=== PATIENT | female | born 1950 | race Caucasian/White ===

== ENCOUNTER 2019-03-27 21:33 | Emergency (ER) | payer OTHER, SELFPAY ==
[2019-03-27 21:33] VITALS: BP 140/85; PULSE 77; RESP 15; TEMP 36.6; O2SAT 99; BMI 44.1
--- NOTE | 2019-03-27 22:00 | ED.VISSUMM ---
- ER Visit Summary Date of Service: 03/27/19 Chief Complaint: Pulled a muscle in my back History of Present Illness: The patient is a [address] Ceballos. She reports that approximately o'clock this evening she was chasing her cat and twisted awkwardly pulling a muscle in her back. She reports that she has a sharp back pain Zeta 10 severity. Is worsened by movement. Has not taken anything for this. Denies any other trauma. No fall or MVA. She denies any chest pain. She does report the pain seems to take her breath away. Physical Examination: Vitals: Stable. Afebrile. General: Well-nourished and well-developed. Head: Normocephalic atraumatic. Neck: Supple, no lymphadenopathy. No JVD. Nontender. Cardiovascular: Regular rate and rhythm. No murmurs. Respiratory: No respiratory distress. Clear to auscultation bilaterally. Abdominal: Soft, nontender, nondistended, normal bowel sounds. No guarding, rebound, or peritoneal signs. Back: No vertebral tenderness. She does have moderate tenderness palpation to the paraspinous posterior just inferior to the scapula and medial to the left scapula. Extremities: Nontender, no edema. Skin: Normal color, no rash. Neurologic: Alert and oriented ?3. Cranial nerves II through XII are intact. Normal strength and sensation. Psych: Normal affect. Emergency Department Course and Treatment: An OARRS report was obtained which was negative. She was given a dose of morphine IM. Treatment Plan: Patient will be discharged prescription for Percocet. Instructed to follow-up with primary care physician in 3 to 5 days if not improving. Return to the emergency department for any worsening symptoms. Disposition: To home in improved and stable condition. Impression: 1. Left upper back strain. This note was generated with [employer] dictation software. It may contain incorrect words, spelling, and punctuation that were not noted in review of the chart prior to signing ED Disposition - Plan for ED Patient: Disposition: Home or Assisted Living Instructions: Back Sprain/Strain Prescriptions: Hydrocodone Bitart/Apap 5-325 [[place] 5MG-325MG] 1 tab PO Q6H PRN PRN 3 Days #12 tab PRN Reason: Pain Prescription Printed Referrals: Ceballos,Scar, MD [Primary Care Provider] - 3-5 Days if not improving
[2019-03-27] MEDS: morphine 8 MG/ML Syringe IM (22:09)
[2019-03-27 22:44] VITALS: RESP 18; O2SAT 96
== END 2019-03-27 23:03 | disposition home or self-care (01) ==
PROVIDERS: Emergency Provider Emergency Medicine; Family Provider Internal Medicine; PCP Internal Medicine
DX: S29.012A Strain of muscle and tendon of back wall of thorax, initial encounter (principal); X50.1XXA Overexertion from prolonged static or awkward postures, initial encounter; Y93.9 Activity, unspecified; Y92.9 Unspecified place or not applicable; Y99.9 Unspecified external cause status; I12.9 Hypertensive chronic kidney disease with stage 1 through stage 4 chronic kidney disease, or unspecified chronic kidney disease; E11.22 Type 2 diabetes mellitus with diabetic chronic kidney disease; N18.9 Chronic kidney disease, unspecified; J45.909 Unspecified asthma, uncomplicated; Z79.82 Long term (current) use of aspirin; Z79.4 Long term (current) use of insulin; Z79.899 Other long term (current) drug therapy
CPT/HCPCS: 96372; 99282

== ENCOUNTER → 2019-11-12 11:18 | Outpatient (CLI) | payer MEDICARE, SELFPAY ==
--- NOTE | 2019-11-12 11:23 | US_ITS ---
STUDY: RENAL ULTRASOUND - COMPLETE REASON FOR EXAM: Female, 69 years old. CKD 2 TECHNIQUE: Ultrasound evaluation of the kidneys was performed with real-time and static fan-scale imaging. COMPARISON: None. FINDINGS: RIGHT KIDNEY: Normal location of the right kidney, which is normal in size. The right kidney measures 11.2 x 5.8 x 4.7 cm. There is a normal cortex of the right kidney. The renal parenchyma measures 1.6 cm. There is no right renal mass or cyst. There are no right renal calculi. There is no right hydronephrosis. DISTAL RIGHT URETER: There is non-visualization of the distal right ureter. There is no demonstrated right ureterovesical junction calculus. There is a visualized right ureteral jet. LEFT KIDNEY: Normal location of the left kidney, which is normal in size. The left kidney measures 10.2 x 4.9 x 4.8 cm. There is a normal cortex of the left kidney. The renal parenchyma measures 1.2 cm. There is no left renal mass or cyst. There are no left renal calculi. There is no left hydronephrosis. DISTAL LEFT URETER: There is non-visualization of the distal left ureter. There is no demonstrated left ureterovesical junction calculus. There is a visualized left ureteral jet. BLADDER: The urinary bladder has a volume of 38.9 ml. US/Kidney and Bladder IMPRESSION: Unremarkable ultrasound of the kidneys and visualized urinary bladder. Electronically Signed: Sharon Zapata MD at 2:45 EDT , Service support ,
== END ==
PROVIDERS: PCP Internal Medicine; Referring Provider Internal Medicine Nephrology; Visit Provider Internal Medicine Nephrology
DX: N18.2 Chronic kidney disease, stage 2 (mild) (principal)
CPT/HCPCS: 76770

== ENCOUNTER 2020-02-19 10:01 | Emergency (ER) | payer MEDICARE, SELFPAY ==
[2020-02-19 10:03] VITALS: BP 140/58; PULSE 76; RESP 16; TEMP 36.3; O2SAT 96; BMI 43.4
--- NOTE | 2020-02-19 10:27 | RAD_ITS ---
STUDY: X-RAY - RIGHT FOOT CLINICAL: Female, 69 years old. right foot pain, NKI TECHNIQUE: 3 view(s) of the foot. COMPARISON: None. FINDINGS: There is a plantar calcaneal spur. Mild arthritic change of the midfoot. Normal metatarsi. Normal metatarsophalangeal joint of the great toe. Normal tibial and fibular sesamoid bones. Normal interphalangeal joint of the great toe. Normal phalanges of the great toe. Normal second through fifth metatarsophalangeal joints. Degenerative changes of the interphalangeal joints and phalanges of the lesser toes. The soft tissue structures are unremarkable. There is no demonstrated fracture. RAD/Foot min 3 Views IMPRESSION: No fracture. Degenerative change. Electronically Signed: Rodrigue Salgado MD at 11:10 EDT , Service support ,
--- NOTE | 2020-02-19 10:29 | ED.DCSUM_ITS ---
- ER Visit Summary Date of Service: 02/19/20 Chief Complaint: [Foot pain] History of Present Illness: The patient is a 69 F [presents to the emergency department complaint of pain in her foot that started yesterday afternoon. Patient denies any injury. Patient has pain mostly with standing and walking on it. No history of gout. No prior similar episodes. Patient has history of type 2 diabetes as well as hypertension and stage III kidney failure.] Physical Examination: [HEENT-PERRLA, EOMI. Cranial nerves II through XII grossly intact. TMs clear. Mucous membranes moist. No adenopathy. Cardiovascular-regular rate and rhythm without murmur or ectopy Lungs-clear to auscultation, chest wall stable without crepitus or subcu emphysema Abdomen-normoactive bowel sounds, soft, nontender, no rebound or rigidity, no peritoneal signs. Extremities-intact ?4, normal range of motion, normal pulses. Right foot- patient has tenderness to palpation over the ankle joint mortise as well as the proximal lateral foot. No erythema or warmth noted. Neurovascular intact distally. No external evidence of trauma or deformity noted.] Test Results: [X-rays of the right foot obtained showed no evidence of fractures or dislocations and only some degenerative changes.] Emergency Department Course and Treatment: [She will be given an Herminio wrap and crutches. Suspect possibility of gout as the etiology of her symptoms therefore I will start her on prednisone. Patient was advised that with her being diabetic she will need to carefully monitor her blood sugars as steroids can increase them. Does have insulin at home to treat this.] Treatment Plan: [Patient will be given prednisone and [place] for pain. Patient advised to follow-up with her primary care physician in 5 to 7 days.] Disposition: [Discharged home in stable condition] Impression: [Right foot and ankle pain-suspect gout] This note was generated with [employer] dictation software. It may contain incorrect words, spelling, and punctuation that were not noted in review of the chart prior to signing ED Disposition - Plan for ED Patient: Referrals: Scar Ceballos MD [Primary Care Provider] -
--- NOTE | 2020-02-19 11:33 | DCINST.ED_ITS ---
ED Disposition - Plan for ED Patient: Instructions: ED ARTHRITIS Gout Prescriptions: Prednisone [Deltasone] 20 mg PO BID #10 tab Transmission Status: Pending to [facility]/pharmacy #[id number] Hydrocodone Bitart/Apap 5-325 [[place] 5MG-325MG] 1 tablet PO Q4H PRN PRN 2 Days #10 tablet PRN Reason: Pain Transmission Status: Received by [facility]/pharmacy #[id number] Referrals: Scar Ceballos MD [Primary Care Provider] - 5-7 Days
--- NOTE | 2020-02-19 11:33 | ED.DEP ---
ED Disposition - Plan for ED Patient: Instructions: ED ARTHRITIS Gout Prescriptions: Prednisone [Deltasone] 20 mg PO BID #10 tab Transmission Status: Pending to [facility]/pharmacy #[id number] Hydrocodone Bitart/Apap 5-325 [[place] 5MG-325MG] 1 tablet PO Q4H PRN PRN 2 Days #10 tablet PRN Reason: Pain Transmission Status: Received by [facility]/pharmacy #[id number] Referrals: Scar Ceballos MD [Primary Care Provider] - 5-7 Days
[2020-02-19] MEDS: predniSONE 20 MG Tablet PO (11:42)
== END 2020-02-19 11:55 | disposition home or self-care (01) ==
PROVIDERS: Emergency Provider Emergency Medicine; PCP Internal Medicine
DX: M79.671 Pain in right foot (principal); M25.571 Pain in right ankle and joints of right foot; E11.22 Type 2 diabetes mellitus with diabetic chronic kidney disease; I12.9 Hypertensive chronic kidney disease with stage 1 through stage 4 chronic kidney disease, or unspecified chronic kidney disease; N18.3 Chronic kidney disease, stage 3 (moderate); Z79.4 Long term (current) use of insulin; Z79.899 Other long term (current) drug therapy
CPT/HCPCS: 73630; 99283

== ENCOUNTER → 2020-04-14 14:11 | Outpatient (CLI) | payer MEDICARE, SELFPAY ==
[2020-04-14 15:18] LABS: Hematocrit 36.3 % (37-47); Hemoglobin 11.5 g/dL (12.0-15.0); Mean Corp Hgb Conc 31.7 g/dL (32-36); Mean Corpuscular Hgb 28.7 pg (27.0-32.0); Mean Corpuscular Volume 90.5 fL (81-99); Mean Platelet Vol. 9.7 fl (6.2-12.0); Platelet Count 370 K/mm3 (150-450); RBC Distribution Width CV 13.9 % (11.6-14.6); RBC Distribution Width SD 45.6 fl (35.1-43.9); Red Blood Count 4.01 M/mm3 (4.2-5.4); White Blood Count 9.5 K/mm3 (4.4-11.0)
[2020-04-14 15:43] LABS: Albumin, Serum 3.6 g/dL (3.2-5.0); BUN 25 mg/dL (7-18); BUN/Creat Ratio 21.7 RATIO (10-20); Calcium,Total 9.6 mg/dL (8.5-10.1); Chloride 105 mmol/L (98-107); Creatinine, Serum 1.15 mg/dL (0.55-1.02); EST Glomerular Filtration Rate 50 mL/min (>60); Est Glom Filt Rate - Afr Amer 60 mL/min (>60); Glucose 192 mg/dL (74-106); Phosphorus 4.3 mg/dL (2.5-4.9); Potassium 4.6 mmol/L (3.5-5.1); Sodium Level 140 mmol/L (136-145)
[2020-04-14 15:48] LABS: Vitamin D,25 Hydroxy 23.9 ng/mL
[2020-04-15 10:19] LABS: PTHIN 29.6 pg/mL (18.4-80.1)
== END ==
PROVIDERS: PCP Internal Medicine; Referring Provider Internal Medicine Nephrology; Visit Provider Internal Medicine Nephrology
DX: N18.2 Chronic kidney disease, stage 2 (mild) (principal); E55.9 Vitamin D deficiency, unspecified
CPT/HCPCS: 36415; 80069; 82306; 83970; 85027

== ENCOUNTER → 2020-07-17 10:16 | Outpatient (CLI) | payer MEDICARE, SELFPAY ==
[2020-07-17 11:05] LABS: Hematocrit 35.7 % (37-47); Mean Corp Hgb Conc 30.8 g/dL (32-36); Mean Corpuscular Volume 90.8 fL (81-99); Mean Platelet Vol. 9.7 fl (6.2-12.0); Platelet Count 344 K/mm3 (150-450); RBC Distribution Width CV 13.3 % (11.6-14.6); RBC Distribution Width SD 43.9 fl (35.1-43.9); Red Blood Count 3.93 M/mm3 (4.2-5.4); White Blood Count 7.5 K/mm3 (4.4-11.0)
[2020-07-17 11:30] LABS: Albumin, Serum 3.6 g/dL (3.2-5.0); BUN 25 mg/dL (7-18); BUN/Creat Ratio 22.1 RATIO (10-20); Calcium,Total 9.2 mg/dL (8.5-10.1); Chloride 104 mmol/L (98-107); Creatinine, Serum 1.13 mg/dL (0.55-1.02); EST Glomerular Filtration Rate 51 mL/min (>60); Est Glom Filt Rate - Afr Amer 61 mL/min (>60); Ferritin 37 ng/mL (8-252); Glucose 153 mg/dL (74-106); Iron 62 ug/dL (50-170); Iron Binding Capacity,Total 411 ug/dL (250-450); Phosphorus 3.8 mg/dL (2.5-4.9); Potassium 4.3 mmol/L (3.5-5.1); Sodium Level 139 mmol/L (136-145)
== END ==
PROVIDERS: PCP Internal Medicine; Visit Provider Internal Medicine Nephrology
DX: N18.2 Chronic kidney disease, stage 2 (mild) (principal); D50.9 Iron deficiency anemia, unspecified
CPT/HCPCS: 36415; 80069; 82728; 83540; 83550; 85027

== ENCOUNTER → 2021-04-05 09:31 | Outpatient (CLI) | payer MEDICARE, SELFPAY ==
[2021-04-05 09:52] LABS: Hematocrit 35.3 % (37-47); Mean Corp Hgb Conc 31.2 g/dL (32-36); Mean Corpuscular Hgb 27.9 pg (27.0-32.0); Mean Corpuscular Volume 89.6 fL (81-99); Mean Platelet Vol. 9.5 fl (6.2-12.0); Platelet Count 351 K/mm3 (150-450); RBC Distribution Width CV 13.8 % (11.6-14.6); RBC Distribution Width SD 45.1 fl (35.1-43.9); Red Blood Count 3.94 M/mm3 (4.2-5.4); White Blood Count 6.7 K/mm3 (4.4-11.0)
[2021-04-05 10:08] LABS: Protein, Urine (Random) 12.7 mg/dL (<11.9); Protein:Creat Ratio 69 mg/g CRE (0-200)
[2021-04-05 10:18] LABS: Albumin, Serum 3.5 g/dL (3.2-5.0); BUN 24 mg/dL (7-18); BUN/Creat Ratio 22.9 RATIO (10-20); Calcium,Total 9.1 mg/dL (8.5-10.1); Chloride 104 mmol/L (98-107); Creatinine, Serum 1.05 mg/dL (0.55-1.02); EST Glomerular Filtration Rate 55 mL/min (>60); Est Glom Filt Rate - Afr Amer 67 mL/min (>60); Ferritin 28 ng/mL (8-252); Glucose 124 mg/dL (74-106); Iron 55 ug/dL (50-170); Iron Binding Capacity,Total 435 ug/dL (250-450); Phosphorus 3.4 mg/dL (2.5-4.9); Potassium 4.2 mmol/L (3.5-5.1); Sodium Level 139 mmol/L (136-145)
== END ==
PROVIDERS: PCP Internal Medicine; Referring Provider Internal Medicine Nephrology; Visit Provider Internal Medicine Nephrology
DX: E11.22 Type 2 diabetes mellitus with diabetic chronic kidney disease (principal); N18.2 Chronic kidney disease, stage 2 (mild); D50.9 Iron deficiency anemia, unspecified
CPT/HCPCS: 36415; 80069; 82570; 82728; 83540; 83550; 84156; 85027

== ENCOUNTER 2022-03-12 09:38 | Emergency (ER) | payer MEDICARE, SELFPAY ==
[2022-03-12 09:39] VITALS: BP 160/122; PULSE 59; RESP 18; TEMP 35.9; O2SAT 97; BMI 42.5
--- NOTE | 2022-03-12 09:52 | CT_ITS ---
STUDY: CT ABDOMEN AND PELVIS WITH CONTRAST REASON FOR EXAM: Female, 71 years old. Upper abdominal pain with nausea and vomiting. RADIATION DOSAGE (If Supplied By Facility): CTDIvol = ( 16.67 ) mGy, DLP = ( 1132.08 ) mGycm TECHNIQUE: Transaxial images were obtained from the dome of the diaphragm to the symphysis pubis without oral contrast. IV 100mL Isovue-300 was administered. Sagittal and coronal images were reconstructed. Individualized dose optimization techniques were used for this CT. COMPARISON: None. FINDINGS: Minimal increased linear markings at the lung bases suggestive of mild atelectasis. The visualized portions of the heart are within normal limits. There is decreased attenuation of the liver consistent with steatosis. There are multiple small gallstones. Normal spleen. Normal pancreas. Normal bilateral adrenal glands. There is a 8.6 mm cyst in the lower pole of the right kidney. Normal left kidney. There is a small hiatal hernia. Normal small intestine. Normal colon. There are surgical clips in the region of the appendix consistent with a prior appendectomy. There is scattered atherosclerotic calcification of the abdominal aorta, without a demonstrated aneurysm. Normal inferior vena cava. Normal retroperitoneum. The urinary bladder is empty. There is absence of the uterus consistent with a prior hysterectomy. There is a small umbilical hernia containing fat. There are diffuse degenerative changes of the visualized lumbar spine. CT/Abdomen/Pelvis W IV Cont ONLY IMPRESSION: Multiple small gallstones. Fatty attrition of the liver. Electronically Signed: Fran Rice MD at 10:56 EDT ,
--- NOTE | 2022-03-12 09:54 | EDS_ITS ---
HPI HPI - GI History of Present Illness Chief Complaint: Nausea/Vomiting Narrative Narrative: 71-year-old female past medical history of diabetes, takes Lantus 26 units in the evening and metformin during the day, presents with nausea and vomiting that she has had since 8 PM last evening, approximately 14 hours ago. She states that she ate dinner around 5 PM then at 3 PM developed epigastric to right upper quadrant pain that radiates down toward. She then starts relating history that she had projectile vomiting at midnight and vomited multiple times. She denies any blood in her emesis, stating that it was not bilious but more food. Past surgical history includes hysterectomy and appendectomy. She denies any fevers or chills. States when she moves her abdomen hurts more. It is mainly in the upper part of her abdomen and epigastric area and radiating downward, but states it hurts all over. No chest pain or shortness of breath. PFSH PFSH Home Medications albuterol sulfate 90 mcg/actuation aerosol inhaler 2 puff inhalation Q6H PRN PRN Sob &/Or Wheezing 03/27/19 [History Last Taken Unknown] diltiazem HCl 360 mg tablet,extended release 24 hr 360 mg PO DAILY 03/27/19 [History Last Taken Unknown] fenofibrate nanocrystallized 145 mg tablet 145 mg PO DAILY 03/27/19 [History Last Taken Unknown] glimepiride 4 mg tablet 4 mg PO DAILY 03/27/19 [History Last Taken Unknown] insulin glargine 100 unit/mL (3 mL) subcutaneous pen 30 unit SQ QHS 03/27/19 [History Last Taken Unknown] levothyroxine 50 mcg tablet 50 mcg PO DAILY 03/27/19 [History Last Taken U nknown] losartan 50 mg tablet 50 mg PO DAILY 03/27/19 [History Last Taken Unknown] metformin 500 mg tablet 1,000 mg PO BID 03/27/19 [History Last Taken Unknown] pantoprazole 20 mg tablet,delayed release 20 mg PO DAILY 03/27/19 [History Last Taken Unknown] atorvastatin 10 mg tablet 10 mg PO QHS 02/19/20 [History Last Taken Unknown] fluticasone propionate 220 mcg/actuation HFA aerosol inhaler 1 puff inhalation BID 02/19/20 [History Last Taken Unknown] prednisone 20 mg tablet 20 mg PO BID #10 tabs 02/19/20 [Rx Last Taken Unknown] dicyclomine 20 mg tablet 20 mg PO BID #20 tabs 03/12/22 [Rx Last Taken Unknown] ondansetron 4 mg disintegrating tablet 4 mg PO Q6H PRN nausea and vomiting #14 tabs 03/12/22 [Rx Last Taken Unknown] Allergy/AdvReac Type Severity Reaction Status Date / Time liraglutide [From Victoza] Allergy PT UNSURE Verified 03/12/22 09:39 OF REACTION Social History Smoking Status: Never smoker ROS ROS ED ROS Narrative Constitutional: No fever, no chills. HEENT: No sore throat. No neck pain. No loss of vision. No rhinorrhea. Cardiovascular: No chest pain. No palpitations. No pedal edema. Respiratory: No cough, no shortness of breath. Abdominal: Epigastric to bilateral upper quadrant abdominal pain. Positive nausea. Multiple episodes of nonbloody vomiting. Described as projectile. Genitourinary: No dysuria. No hematuria. Musculoskeletal: No myalgias. No arthralgias. Neurologic: No headaches. No dizziness. No lightheadedness. Skin: No rash. No change in color. Psychiatric: No depression. No anxiety. EXAM Physical Exam Narrative Exam Narrative: Afebrile. Vital signs noted. HEENT: Normocephalic. Atraumatic. PERRL, EOMI. Neck soft and supple. No point tenderness or step off. Cardiovascular: Regular rate and rhythm. No murmurs, rubs, or gallops appreciated. Respiratory: No tachypnea. Lungs clear to auscultation bilaterally. Gastrointestinal: Abdomen soft, obese, with tenderness in the epigastrium to right upper quadrant, with normoactive bowel sounds. No rebound or guarding. Negative Vasquez sign. Neurological: Awake. Alert. Nonfocal, nonlateralizing. Skin: No rash. Normal color. No pallor. Musculoskeletal: No pedal edema. Full range of motion extremities. Const Vital Signs: 03/12/22 09:39 Temperature 96.7 F L Temperature Source Temporal Pulse Rate 59 L Respiratory Rate 18 Blood Pressure 160/122 H Blood Pressure Mean 134 Pulse Ox 97 Oxygen Delivery Method Room Air MDM MDM MDM Narrative Medical decision making narrative: Comprehensive work-up was pursued. She has bolus normal saline. I do feel CT imaging with IV contrast is indicated to look for obstruction. Should she require right upper quadrant ultrasound imaging, that will be performed after obtaining CBC, CMP, and lipase. RN ordered EKG shows normal sinus bradycardia at 57 bpm interpreted by myself. No evidence of STEMI. CBC shows normal white count of 10.6 with hemoglobin 11.4, hematocrit 35.0. Normal platelet count of 357. CMP shows BUN elevated at 23 with a normal creatinine 1.02. Electrolytes are otherwise unremarkable. AST and ALT are normal. High-sensitivity troponin normal at 22. Alk phos also normal at 51. Urinalysis shows no evidence of infection, negative nitrites with 15 ketones. WBC 0-5. I do not feel antibiotics are indicated. Her lipase is normal. CT of the abdomen pelvis shows multiple gallstones. She started having increased pain and was administered morphine 4 mg intravenously. I did obtain a gallbladder ultrasound which shows common bile duct of 4.2, with multiple gallstones but no pericholecystic fluid. At this point in time, I do feel she can be discharged safely home with follow-up. She was given a prescription for Bentyl and for Zofran and told to start a clear liquid diet and advance as tolerated. She will follow-up with her primary care physician. She may require outpatient HIDA scanning and referral to a general surgeon for elective cholecystectomy. Return instructions to the emergency department were reviewed. Disposition is discharged home in stable condition. Lab Data Attestation: I reviewed the patient's lab results. Labs: Laboratory Results - last 24 hr 03/12/22 03/12/22 03/12/22 09:57 09:57 10:32 WBC 10.6 RBC 4.07 L Hgb 11.4 L Hct 35.0 L MCV 86.0 MCH 28.0 MCHC 32.6 RDW Std Deviation 41.3 RDW Coeff of Tito 13.2 Plt Count 357 MPV 9.3 Immature Gran % (Auto) 0.600 Neut % (Auto) 80.5 H Lymph % (Auto) 16.9 L Charles % (Auto) 1.6 Eos % (Auto) 0.1 Baso % (Auto) 0.3 Absolute Neuts (auto) 8.6 H Absolute Lymphs (auto) 1.80 Nucleated RBC % 0 Sodium 137 Potassium 3.9 Chloride 102 Carbon Dioxide 26.0 Anion Gap 9 BUN 23 H Creatinine 1.02 Estim Creat Clear Calc 38.73 Est GFR (MDRD) Af Amer 69 Est GFR (MDRD) Non-Af 57 L BUN/Creatinine Ratio 22.5 H Glucose 215 H Calcium 9.4 Total Bilirubin 0.20 AST 18 ALT 34 Alkaline Phosphatase 51 Troponin I High Sens 22 Total Protein 7.5 Albumin 3.7 Globulin 3.8 Albumin/Globulin Ratio 1.0 Lipase 108 Urine Color Yellow Urine Clarity Sl. Cloudy Urine pH 6.5 Ur Specific [place] 1.015 Urine Protein 30 H Urine Glucose (UA) 100 H Urine Ketones 15 H Urine Occult Blood 50 H Urine Nitrite Negative Urine Bilirubin Negative Urine Urobilinogen Normal Ur Leukocyte Esterase 25 H Urine RBC 0-5 SEEN Urine WBC 0-5 SEEN Ur Squamous Epith Cells 0 SEEN Urine Bacteria 1+ Urine Mucus 1+ Radiography Diagnostic Testing: Clinical Impression(s) from Imaging Studies Abdomen/Pelvis CT 03/12/22 09:52 IMPRESSION: Multiple small gallstones. Fatty attrition of the liver. Electronically Signed: Fran Rice MD at 10:56 EDT , Gallbladder Ultrasound 03/12/22 11:28 IMPRESSION: Hepatomegaly and diffuse fatty infiltration of the liver. Multiple gallstones. Electronically Signed: Fran Rice MD at 12:47 EDT , Discharge Plan Triage Chief Complaint: Nausea/Vomiting ED Provider: Yassine Troy Dx/Rx/DC Orders Clinical Impression: Abdominal pain, Nausea & vomiting, Gallstones, Biliary colic Instructions: Nausea Vomit Control, ED Abdominal Pain Unkn Cause Fem, ED Gallstones with Biliary Colic, ED Vomiting (Adult) Prescriptions: New dicyclomine 20 mg tablet 20 mg PO BID Qty: 20 0RF ondansetron 4 mg tablet,disintegrating 4 mg PO Q6H PRN (Reason: nausea and vomiting) Qty: 14 0RF No Action losartan 50 MG tablet 50 mg PO DAILY metformin 500 MG tablet 1,000 mg PO BID pantoprazole 20 MG tablet,delayed release (DR/EC) 20 mg PO DAILY levothyroxine 50 MCG tablet 50 mcg PO DAILY glimepiride 4 MG tablet 4 mg PO DAILY albuterol sulfate 1 INHALER inhaler 2 puff inhalation Q6H PRN PRN (Reason: Sob &/Or Wheezing) diltiazem HCl 360 MG tablet extended release 24 hr 360 mg PO DAILY fenofibrate nanocrystallized 145 MG tablet 145 mg PO DAILY insulin glargine 100 UNIT/ML insulin pen 30 unit SQ QHS atorvastatin 10 MG tablet 10 mg PO QHS fluticasone propionate 220 mcg/actuation HFA aerosol inhaler 1 puff inhalation BID prednisone 20 MG tablet 20 mg PO BID Qty: 10 0RF Rx Instructions: With food Primary Care Provider: Scar Ceballos Referrals: Scar Ceballos MD [Primary Care Provider] - 3-5 Days Disposition Disposition: Home, Self Care
[2022-03-12 10:06] LABS: Absolute Neutrophil Count 8.6 X10^3/uL (2.0-7.7); Basophil# 0.03 X10^3/uL; Basophil% 0.3 % (0-1); Eosinophil# 0.01 X10^3/uL; Eosinophils% 0.1 % (0-5); Hemoglobin 11.4 g/dL (12.0-15.0); Lymphocyte % 16.9 % (19-41); Mean Corp Hgb Conc 32.6 g/dL (32-36); Mean Platelet Vol. 9.3 fl (6.2-12.0); Monocyte# 0.17 X10^3/uL; Monocyte% 1.6 % (0-10); NRBC Flagged by Analyzer 0 % (0-5); Neutrophil # 8.55 X10^3/uL (2.7-7.7); Neutrophil % 80.5 % (47-70); Platelet Count 357 K/mm3 (150-450); RBC Distribution Width CV 13.2 % (11.6-14.6); RBC Distribution Width SD 41.3 fl (35.1-43.9); Red Blood Count 4.07 M/mm3 (4.2-5.4); White Blood Count 10.6 K/mm3 (4.4-11.0)
[2022-03-12] MEDS: 0.9% Normal Saline 1,000 ML 1000 ML IV (10:06)
--- NOTE | 2022-03-12 10:20 | EKG12_ITS ---
Test Reason : chest pain Blood Pressure : / mmHG Vent. Rate : 057 BPM Atrial Rate : 057 BPM P-R Int : 152 ms QRS Dur : 092 ms QT Int : 442 ms P-R-T Axes : 056 064 045 degrees QTc Int : 430 ms Sinus bradycardia Otherwise normal ECG Confirmed by DEVEN CARLOS, ROCKY ([id number]), publications editor BRET MADDEN ([id number]) on 03/13/2022 11:07:57 AM Referred By: Isabel Confirmed By:ROCKY CARVALHO MD
[2022-03-12 10:27] LABS: AST(SGOT) 18 U/L (15-37); Alanine Aminotransfer ALT/SGPT 34 U/L (13-56); Albumin, Serum 3.7 g/dL (3.2-5.0); Alkaline Phosphatase 51 U/L (45-117); Anion Gap 9 (5-15); BUN 23 mg/dL (7-18); BUN/Creat Ratio 22.5 RATIO (10-20); Calcium,Total 9.4 mg/dL (8.5-10.1); Chloride 102 mmol/L (98-107); Creatinine, Serum 1.02 mg/dL (0.55-1.02); EST Glomerular Filtration Rate 57 mL/min (>60); Est Glom Filt Rate - Afr Amer 69 mL/min (>60); Estimated Creatinine Clearance 38.73 ml/min; Globulin 3.8 g/dL (2.2-4.2); Glucose 215 mg/dL (74-106); Lipase 108 U/L (73-393); Potassium 3.9 mmol/L (3.5-5.1); Protein, Total 7.5 g/dL (6.4-8.2); Sodium Level 137 mmol/L (136-145); Troponin-I HS 22 pg/mL (3.0-54.0)
[2022-03-12 10:40] LABS: Squamous Epithelial Cells - UA 0 SEEN /hpf (5-10)
[2022-03-12 10:46] LABS: Color, Urine Yellow (Yellow); Glucose, Dipstick 100 mg/dl (Normal); Ketone-Dipstick 15 mg/dl (Negative); Leukocyte Esterase-Dipstick 25 /ul (Negative); Nitrite-Dipstick Negative (Negative); Occult Blood-Urine 50 /ul (Negative); Protein-Dipstick 30 mg/dl (Negative); Specific Gravity, Urine 1.015 (1.002-1.030); Urine Bilirubin Dipstick Negative (Negative); Urine Clarity Sl. Cloudy (Clear); Urine Urobilinogen Normal (Normal); Urine pH 6.5 (5.0 - 8.0)
[2022-03-12 10:53] LABS: Bacteria 1+ /hpf (None Seen); Mucous, Urine 1+ /hpf (<or=2+); Red Blood Cells-Urine 0-5 SEEN /hpf (0-5); White Blood Cells 0-5 SEEN /hpf (0-5)
--- NOTE | 2022-03-12 11:28 | US_ITS ---
STUDY: ABDOMINAL ULTRASOUND - RIGHT UPPER QUADRANT REASON FOR VISIT: Female, 71 years old nausea and vomiting -- epigastric pain -- f/u ct TECHNIQUE: Ultrasound evaluation of the right upper quadrant was performed with real-time and static espitia-scale imaging. TECHNICAL QUALITY: Adequate. COMPARISON: Comparison is made with prior CT scan done earlier today. FINDINGS: Liver: The liver is enlarged and measures 22.3 cm. There is increased echogenicity consistent with fatty infiltration. The bile ducts are within normal limits. There is hepatic color flow. The direction of portal flow is hepatopetal. There is no demonstrated mass lesion. Gallbladder: Normal distended gallbladder. The gallbladder wall measures 2.8 mm. There is a negative sonographic Vasquez''s sign. There is no pericholecystic fluid. There are multiple echogenic structures within the gallbladder, consistent with multiple gallstones. Common Bile Duct (C.B.D.): The common bile duct measures 4.2 mm. Pancreas: Normal size of the head, body and tail of the pancreas. There is normal echogenicity of the pancreas. There is no demonstrated pancreatic mass or cyst. Right Kidney: Normal size of the right kidney. The right kidney measures 10.6 cm x 5.6 cm x 4.4 cm. Normal renal cortex. The right cortex measures 1.1 cm. There is a 1.2 cm x 0.7 cm x 0.9 cm right renal cyst. There is no right hydronephrosis. US/Gallbladder IMPRESSION: Hepatomegaly and diffuse fatty infiltration of the liver. Multiple gallstones. Electronically Signed: Fran Rice MD at 12:47 EDT ,
[2022-03-12] MEDS: Morphine 4 MG/ML Syringe IV (11:35)
[2022-03-12 14:31] VITALS: BP 181/68; PULSE 61
== END 2022-03-12 14:32 | disposition home or self-care (01) ==
PROVIDERS: Emergency Provider Emergency Medicine; PCP Internal Medicine; Visit Provider Emergency Medicine
DX: K80.70 Calculus of gallbladder and bile duct without cholecystitis without obstruction (principal); E11.9 Type 2 diabetes mellitus without complications; Z79.4 Long term (current) use of insulin; R10.11 Right upper quadrant pain; R10.13 Epigastric pain; R11.2 Nausea with vomiting, unspecified; R00.1 Bradycardia, unspecified; Z79.899 Other long term (current) drug therapy; Z90.710 Acquired absence of both cervix and uterus; Z90.49 Acquired absence of other specified parts of digestive tract
CPT/HCPCS: 74177; 76705; 80053; 81001; 83690; 84484; 85025; 93005; 96361; 96374; 99282; J7030; Q9967; A4216

== ENCOUNTER → 2022-04-08 | Outpatient (CLI) | payer MEDICARE, SELFPAY ==
[2022-04-08 11:09] LABS: Hematocrit 35.2 % (37-47); Hemoglobin 11.7 g/dL (12.0-15.0); Mean Corp Hgb Conc 33.2 g/dL (32-36); Mean Corpuscular Hgb 29.5 pg (27.0-32.0); Mean Corpuscular Volume 88.7 fL (81-99); Mean Platelet Vol. 9.2 fl (6.2-12.0); Platelet Count 319 K/mm3 (150-450); RBC Distribution Width CV 13.8 % (11.6-14.6); RBC Distribution Width SD 44.8 fl (35.1-43.9); Red Blood Count 3.97 M/mm3 (4.2-5.4); White Blood Count 6.4 K/mm3 (4.4-11.0)
[2022-04-08 11:44] LABS: Albumin, Serum 3.6 g/dL (3.2-5.0); BUN 29 mg/dL (7-18); BUN/Creat Ratio 24.4 RATIO (10-20); Calcium,Total 9.3 mg/dL (8.5-10.1); Chloride 106 mmol/L (98-107); Creatinine, Serum 1.19 mg/dL (0.55-1.02); EST Glomerular Filtration Rate 48 mL/min (>60); Est Glom Filt Rate - Afr Amer 58 mL/min (>60); Ferritin 38 ng/mL (8-252); Glucose 125 mg/dL (74-106); Iron 59 ug/dL (50-170); Iron Binding Capacity,Total 417 ug/dL (250-450); PERCENT IRON SATURATION 14.1 % (15.0-55.0); Phosphorus 4.1 mg/dL (2.5-4.9); Potassium 4.5 mmol/L (3.5-5.1); Sodium Level 137 mmol/L (136-145)
[2022-04-08 13:48] LABS: Protein, Urine (Random) 11.7 mg/dL (<11.9); Protein:Creat Ratio 71 mg/g CRE (0-200)
== END | disposition home or self-care (01) ==
LOC: LAB 10:53
PROVIDERS: PCP Internal Medicine; Referring Provider Internal Medicine Nephrology; Visit Provider Internal Medicine Nephrology
DX: D50.9 Iron deficiency anemia, unspecified (principal); E11.22 Type 2 diabetes mellitus with diabetic chronic kidney disease; N18.2 Chronic kidney disease, stage 2 (mild)
CPT/HCPCS: 36415; 80069; 82570; 82728; 83540; 83550; 84156; 85027

== ENCOUNTER 2022-05-07 08:26 | Day surgery (SDC) | payer MEDICARE, SELFPAY ==
--- NOTE | 2022-05-02 10:59 | EKG12_ITS ---
Test Reason : PRE OP Blood Pressure : / mmHG Vent. Rate : 067 BPM Atrial Rate : 067 BPM P-R Int : 158 ms QRS Dur : 068 ms QT Int : 416 ms P-R-T Axes : 090 065 053 degrees QTc Int : 439 ms Normal sinus rhythm Normal ECG Confirmed by LOREN CARLOS, KODY ([id number]), editor trade journal BRET MADDEN ([id number]) on 05/03/2022 2:07:42 PM Referred By: Maggy Akers Confirmed By:OMAR PIMENTEL MD
[2022-05-02 12:51] LABS: International Normalized Ratio 0.9
[2022-05-02 12:52] LABS: Partial Thromboplast Time 36.5 Seconds (24.1-36.2)
[2022-05-02 13:01] LABS: Hemoglobin A1c 6.7 % (3.8-5.6)
[2022-05-07] VITALS (7 sets, daily range): BP systolic 128–168; BP diastolic 61–85; PULSE 59–78; RESP 16–19; TEMP 36.3–36.9; O2SAT 93–100; BMI 42.2
--- NOTE | 2022-05-07 | GALL_PTH ---
PATIENT: LENI ZAMBRANO LOC: [facility] [place] U#:[id number] AGE/SX: 72/F ROOM: RE05/07/[address]: Dr. Maggy Akers MD : 1950 BED: DIS: 05/07/2022 SPEC #: [id number] RECD: 05/07/22 13:08 STATUS: ANDRY ELLA #: [id number] LAYNE: 05/07/22 00:[address]: Maggy Akers DEPT: SURGICAL PATHOLOGY RECD BY: Ricardo Anaya ENTERED: 05/07/22 13:08 SP TYPE: KEVIN WELLER DR: Dr. Scar Ceballos MD Tissues: Gallbladder, NOS Procedures: Surgery Specimen Level III HEADER OPERATION: Laparoscopic cholecystectomy PRE-OP DIAGNOSIS: Epigastric abdominal pain, cholelithiasis TISSUE SUBMITTED: Gallbladder and contents MICROSCOPIC DIAGNOSIS Gallbladder, cholecystectomy: Cholesterolosis, chronic cholecystitis and cholelithiasis. AM:michael 05/08/2022 MICROSCOPIC DESCRIPTION Slides are reviewed. GROSS DESCRIPTION Received is one container labeled with the patient's name and designated gallbladder and contents. The specimen consists of a gallbladder measuring 7.5 cm in length and up to 2.5 cm in diameter. The external surface is pink-matta, smooth and glistening for the most part. Focally it is granular, hemorrhagic and contains cautery artifact. The gallbladder contains thick, green-yellow mucoid bile and four variable sized irregular greenish-yellow stones measuring in aggregate 2 x 1.5 x 1 cm and 0.5 to 1 cm in greatest dimension. The mucosa also shows several yellowish streaks consistent with cholesterolosis. The mucosa is bile-stained and without any mass lesions. The gallbladder wall measures up to 0.2 cm in thickness. [employer] sections from the gallbladder and the cystic duct are submitted in one cassette. / SJ:michael 05/07/2022 TC:3 CPT: 09196
--- NOTE | 2022-05-07 08:38 | HP.PCM_ITS ---
History and Physical Date of Admission: 05/07/22 HISTORY AND PHYSICAL ? Chloe Guillory 1950 ? ? REFERRING PHYSICIAN:? ?Scar Ceballos MD ? CHIEF COMPLAINT:? ?Consult (Review CT and US reports from [facility] ER, ?gallbladder problems)? ? HPI: The patient is a 71 year old female presents with abdominal pain. She had presented to [facility] ED with epigastric abdominal pain. She states that she also has bilateral upper abdominal pain with nausea and emesis. She also noted loose bowel movements; she states that they are green in color. She did note that these bowel movements ceased this past week and the abdominal pain has decreased. She denies fevers. She denies jaundice or icterus ? CT scan 03/12/2022 at [facility] ED - multiple small gallstones US 03/12/2022 at [facility] - fatty infiltration and enlarged liver, gallbladder wall measures 2.8mm, multiple echogenic structures within the gallbladder consistent with multiple gallstones ? ? PAST MEDICAL HISTORY DiagnosisDate ?Hypertension? ?Hypothyroidism? ?Insomnia03/19/2016 ?Moderate persistent asthma without pdfmssniprcq85/10/2015 ?07/07/15 Methacholine Inhalation Challenge: 35% drop FEV1 at 2.5 mg/mL. ?Morbid obesity (HCC)04/04/2015 ?Patient has morbid obesity.? ?KAM (obstructive sleep apnea)09/26/2015 ?DME: [facility]? ?Other hyperlipidemia03/23/2019 ?RLS (restless legs syndrome)02/15/2019 ?Type 2 diabetes mellitus with stage 3 chronic kidney disease, with long-term current use of insulin ([facility])04/04/2015 ?Dx: age 51. On metformin and victoza which she does not think works well for her lately? She was started on jardiance which made her have suicidal ideation So she stopped the medication.? PAST SURGICAL HISTORY ProcedureLateralityDate ?APPENDECTOMY 1957 ?LAPAROSCOPY DIAGNOSTIC 2000 ?LEFT HEART CATH,PERCUTANEOUS 07/14/2020 ?wnl ?TONSILLECTOMY AND ADENOIDECTOMY HX 1957 ?TOTAL ABDOMINAL HYSTERECT W/WO RMVL TUBE OVARY 2000 ? ? Current Outpatient Medications MedicationSig ?MULTIVITAMIN ORALTake by mouth once daily. ?fenofibrate nanocrystallized (TRICOR) 145 mg tabletTake 1 tablet by mouth once daily. ?olmesartan (BENICAR) 20 mg tabletTake 1 tablet by mouth once daily. ?insulin glargine (LANTUS SOLOSTAR U-100 INSULIN) 100 unit/mL (3 mL)Inject 30 Units subcutaneously every morning. ?dilTIAZem HCl 360 mg 24 hr capsuleTake 1 capsule by mouth once daily. ?glimepiride (AMARYL) 4 mg tabletTake 1 tablet by mouth daily with breakfast. ?levothyroxine (LEVOXYL) 50 mcg tabletTake 1 tablet by mouth once daily. Take on empty stomach. For Thyroid ?metFORMIN (GLUCOPHAGE) 500 mg tabletTake 2 tablets by mouth twice daily with meals. ?traZODone (DESYREL) 150 mg tabletTake 1 tablet by mouth daily at bedtime. ?ADVAIR DISKUS 250-50 mcg/dose inhalerINHALE 1 PUFF BY MOUTH TWICE A DAY. RINSE & GARGLE MOUTH WITH WATER AFTER EACH USE ?albuterol HFA (PROVENTIL HFA, VENTOLIN HFA) 90 mcg/actuation inhalerInhale 2 Puffs as instructed four times daily as needed for Wheezing/Shortness of Breath. FOR WHEEZING AND SHORTNESS OF BREATH. ? ? ALLERGIES: Dust, Jardiance [Empagliflozin], Mold, and Victoza [Liraglutide] ? PERSONAL HISTORY:? Social History ? Tobacco Use ?Smoking status:Never ?Smokeless tobacco:Never ?Tobacco comments: ? NO smoking in childhood home. Spouse smokes pipe, not around patient.? Vaping Use ?Vaping Use:Never used Substance Use Topics ?Alcohol use:No ?Drug use:No ?? ? FAMILY HISTORY? Adopted: Yes Family history unknown: Yes ? ? ? The review of systems data was entered by the nurse and reviewed by me ? Nursing Notes:? Mraiah Bowers RN? 04/08/2022 10:59 AM? Signed REVIEW OF SYSTEMS: ? ? ?General:? ?The patient NOTES fatigue, denies weight loss, denies weight gain, denies feeling hot, and denies feelings of cold. ? ? ?Eyes:? The patient denies glaucoma, denies eye injury/surgery, wears glasses or contacts. ? ? ?Ear/Nose/Throat:? The patient NOTES allergies, denies hayfever, denies ear infections, and denies bloody noses. ? ? ?Cardiovascular:? The patient denies chest pain, denies heart disease, denies high blood pressure,denies cardiac stent, denies prior heart attack, denies irregular heart beat, denies high cholesterol,? denies poor circulation, denies heart failure, other cardiac issues, denies claudication, denies cold feet, denies peripheral arterial stent. ? ? ?Respiratory:? The patient denies tuberculosis, denies pneumonia, denies frequent cough, denies pulmonary embolism, NOTES shortness of breath, and denies coughing up blood. ? ? ?Gastrointestinal:? The patient denies difficulty swallowing, NOTES acid reflux, denies ulcers, denies vomiting, denies jaundice/hepatitis, NOTES gallbladder problems, denies black or tarry stools, denies hemorrhoids, denies bleeding from rectum, denies diverticulitis, denies constipation, NOTES diarrhea, denies loss of stool control, and denies hernias. ? ? ?Kidney/Bladder:? The patient denies kidney stones, denies urine infections, and denies bloody urine. ? ? ?Skin:? The patient denies a history of skin cancer, denies bleeding/changing moles, and denies a history of skin rash. ? ? ?Neurologic:? The patient denies a history of epilepsy/convulsions, denies headaches, denies head/spinal injuries, and denies stroke/TIA. ? ? ?Psychiatric:? The patient denies psychiatric medications, denies depression, and denies voices, denies substance abuse. ? ? ?Endocrine:? The patient NOTES thyroid disorders, NOTES diabetes, and denies hormonal problems. ? ? ?Hematologic:? The patient denies a history of bruising, denies bleeding, and denies anemia, denies blood clots. ? ? ?Infections:? The patient NOTES a history of measles and mumps, denies rheumatic fever, and denies sexually transmitted diseases. ? ? ?Musculoskeletal:? The patient denies back pain/injury, denies back problems, denies sciatica, denies knee/foot trouble, NOTES arthritis, or denies gout. When was patient's last Mammogram screening? 02/08/2021 ?Last Colonoscopy:? Unknown? Mariah Bowers RN ? ? ? PHYSICAL EXAMINATION: ? General:? The patient is 71 year old female, well nourished, well hydrated in no acute distress.? The patient is oriented to time, place, and person. ? VITALS: Blood pressure 122/64, pulse 72, temperature 36.4 ?C (97.6 ?F), height 154.9 cm (5' 1), weight 101.9 kg (224 lb 9.6 oz), SpO2 98 %. Body mass index is 42.44 kg/m?.? ? Head ? Normocephalic. EOM intact with sclera clear and no icterus noted. Wearing glasses. Neck - supple with no jugular venous distention noted. Trachea is midline.? Lungs ? clear to auscultation. Normal breath sounds. No rales/rhonchi/wheezing noted. No labored breathing noted, such as retractions. No cough heard. Heart ? normal S1 and S2 auscultated. No rubs/clicks/murmurs noted. Regular rate. Abdomen ? soft and benign. Tender in the epigastrium without peritoneal signs.? Difficult to determine if any masses or organomegaly due to body habitus. Extremities ? no calf tenderness noted. No pitting edema noted. Skin ? normal skin integrity. Neurological ? gait normal, no focal deficits noted. Psych ? calm and appropriate? IMPRESSION: epigastric abdominal pain, cholelithiasis ? PLAN:? ?I have discussed the above with the patient. I have offered laparoscopic cholecystectomy, possible cholangiograms I have explained the procedure to the patient. I have counseled the patient as to the risks of the procedure, including but not limited to: infection, bleeding, injury to any blood vessels/nerves, scar tissue, injury to any intrabdominal organs, injury to bowel/bladder, injury to the common bile duct/biliary tree, bile leakage, intraabdominal abscess/bleeding, hernias at incisional sites, wound infections, complications of anesthesia, etc. ? the patient understands. The patient wishes to proceed. ? ? I have answered all questions to the patient?s satisfaction and the patient has no further questions. Diagnoses: (K80.20) Multiple gallstones ? Maggy Akers MD
[2022-05-07] MEDS: Lactated Ringers 1,000 ML 75 ML IV (08:40)
[2022-05-07 09:10] LABS: Bedside Glucose 114 mg/dL (74-106)
--- NOTE | 2022-05-07 11:51 | OP.PCM_ITS ---
Report of Operation Date of Procedure: 05/07/22 Pre-Operative Diagnosis: cholelithiasis Post-Operative Diagnosis: cholelithiasis, chronic cholecystitis, hepatomegaly Surgery/Procedure Performed:: laparoscopic cholecystectomy Description of Surgical Findings:: enlarged liver with fatty infiltration with embedded gallbladder Surgeon: Maggy Akers mechanical piping designer: Warren Ferrara Type of Anesthesia: General Anesthesiologist: Clara Purdy Specimen's removed: gallbladder and contents Estimated Blood Loss (mL): < 10 ml Fluids Replaced: 1000 ml RL Description of Procedure: After informed consent was given, the patient was brought to the Operating Room. Appropriate time out protocol was followed. The patient was placed in the supine position. The patient was then placed under general endotracheal anesthesia by the anesthesia provider. The abdomen was then prepped with a sterile surgical skin preparation and sterile surgical drapes were placed. An area superior to the umbilical dimple was grasped with penetrating clamps and the skin and subcutaneous tissues were infiltrated with local anesthetic with epinephrine. A skin incision was then made with a 15 blade scalpel. The anterior abdominal wall was elevated and a Veress needle was carefully inserted into the intraabdominal cavity. It was checked to be in the proper position with a normal saline drop test. A CO2 pneumoperitoneum was then created. Once this was achieved, then the Veress needle was removed and an 11mm trocar was placed in its stead. A 10mm laparoscope was then inserted into the trocar and careful attention was directed to the intraabdominal contents. There was no evidence of injury to any intraabdominal organs from insertion of the Veress needle or the trocar. Under direct visualization, a 5mm subxiphoid trocar and two lateral 5mm right subcostal trocars were placed. The skin and subcutaneous tissues at these sites were infiltrated with local anesthetic with epinephrine prior to placement of these trocars. Attention was then directed to the right upper quadrant of the abdomen. The liver was noted to be enlarged with changes consistent with fatty infiltration. There were some omental adhesions to the free surface of the gallbladder which were taken down by blunt dissection. Any hemorrhage was controlled with electrocautery. Graspers were placed in the lateral trocars to grasp the distal aspect of the gallbladder and direct it cephalad and to grasp the gallbladder at Moreno?s pouch and direct it laterally. Dissection then began on the proximal gallbladder continuing down to the area of the triangle of Calot to bluntly dissect out the cystic duct. The neck of the gallbladder was identified and blunt dissection continued to dissect out a segment of the cystic duct. A clip was then placed on the neck of the gallbladder. Attempts to do an intraoperative cholangiograms were precluded due to the enlarged liver and embedded nature of the gallbladder of which the cystic duct was deeply embedded. Two clips were placed proximally and the cystic duct was then transected. The cystic artery was visualized and bluntly isolated and then two clips were placed proximally and one clip distally and then it was transected between the proximal and distal clips. The gallbladder was then from the liver bed using electrocautery. Once from the liver bed, it was placed in an Endobag. It was brought out via the umbilical port. It was then forwarded to pathology for analysis. The liver bed was carefully examined. There was no evidence of bile leakage or bleeding. The cystic duct stump and cystic artery stump had their clips intact and there was no evidence of bile leakage or bleeding. The remainder of the abdomen was grossly normal. The CO2 was released and all trocars removed intact. The periumbilical fascia was approximated with a [id number] 0 vicryl suture. All skin incision were closed with 4-0 monocryl in a subdermal fashion. Cavilol and Steristrips were used to reinforce the skin closure. Sterile dressings were applied to all wounds. Sponge, needle and instrument count was verified and correct at time of skin closure. The patient was extubated and brought to the Recovery Room in stable condition. Complications none noted Admit VTE Documentation VTE Present on Admission: Yes VTE Mechan Device Prophylaxis: SCD's
[2022-05-07] MEDS: Lidocaine 2% /Epi 1:100 (50ml) 50 ML Vial (11:55)
--- NOTE | 2022-05-07 12:07 | DCINST_ITS ---
Discharge Instructions Follow Up Care Test Results: Test results from this visit will be discussed in further detail at your follow- up appointment, if applicable. Discharge Plan Admission Attending Provider: Maggy Akers Primary Care Provider: Scar Ceballos Instructions Additional Instructions / Restrictions: Recommended pain control regimen - May take 600 mg ibuprofen (Motrin) and then in 3-4 hours, may take 650 mg acetaminophen (Tylenol), then in 3-4 hours may take 600 mg ibuprofen, then in 3- 4 hours may take 650 mg acetaminophen and so on for 2-3 days May take narcotic pain medication for pain that is not controlled by above and at night for comfort through the night Leave dressings in place May shower, do not scrub in the areas of the dressings as they may unravel. If they become overly soiled you may remove them but leave incision site open to air. Do not soak - no tub baths/swimming Ice applied to areas of discomfort may help No lifting/pushing/pulling greater than 20 pounds for two weeks. Regular diet as tolerated, drink plenty of fluids. Avoid carbonated beverages for a few days as this will cause abdominal bloating and thus discomfort after our surgery. Please call my office for an appointment to see me in 1-2 weeks. Office number is If any questions, please call my office at and ask the jammer operator for the general surgery nurses desk Discharge Orders/Prescriptions Prescriptions: New hydrocodone-acetaminophen 5-325 mg tablet 1 tab PO Q8H 5 Days Qty: 15 0RF No Action losartan [Cozaar] 50 MG tablet 50 mg PO DAILY metformin 500 MG tablet 1,000 mg PO BID levothyroxine 50 MCG tablet 50 mcg PO DAILY glimepiride 4 MG tablet 4 mg PO DAILY albuterol sulfate 1 INHALER inhaler 2 puff inhalation Q6H PRN PRN (Reason: Sob &/Or Wheezing) diltiazem HCl 360 MG tablet extended release 24 hr 360 mg PO DAILY fenofibrate nanocrystallized 145 MG tablet 145 mg PO DAILY insulin glargine [Lantus Solostar U-100 Insulin] 100 UNIT/ML insulin pen 30 unit SQ QHS atorvastatin 10 MG tablet 10 mg PO QHS ondansetron 4 mg tablet,disintegrating 4 mg PO Q6H PRN (Reason: nausea and vomiting) Qty: 14 0RF fluticasone propion-salmeterol [Wixela Inhub] 250-50 mcg/dose blister with device 1 inh INHALATION BID trazodone 150 mg tablet 150 mg PO QHS olmesartan 20 mg tablet 20 mg PO DAILY Referrals / Follow Up: Scar Ceballos MD [Primary Care Provider] - Disposition Disposition (needs filled in before D/C Order can be placed): Home, Self Care
[2022-05-07 12:46] LABS: Bedside Glucose 218 mg/dL (74-106)
== END 2022-05-07 14:54 | disposition home or self-care (01) ==
LOC: SDC 08:26 → AC 08:27
PROVIDERS: Anesthesiology; PCP Internal Medicine; Referring Provider Surgery; Visit Provider Surgery
PROC: (CPT 47610; principal; 2022-05-07 09:40)
DX: K80.10 Calculus of gallbladder with chronic cholecystitis without obstruction (principal); E11.22 Type 2 diabetes mellitus with diabetic chronic kidney disease; E66.01 Morbid (severe) obesity due to excess calories; Z68.41 Body mass index [BMI] 40.0-44.9, adult; Z79.4 Long term (current) use of insulin; N18.30 Chronic kidney disease, stage 3 unspecified; I12.9 Hypertensive chronic kidney disease with stage 1 through stage 4 chronic kidney disease, or unspecified chronic kidney disease; R16.0 Hepatomegaly, not elsewhere classified; Z78.0 Asymptomatic menopausal state; E78.49 Other hyperlipidemia; E03.9 Hypothyroidism, unspecified; J45.40 Moderate persistent asthma, uncomplicated; M19.90 Unspecified osteoarthritis, unspecified site; G47.33 Obstructive sleep apnea (adult) (pediatric); Z79.890 Hormone replacement therapy; Z79.899 Other long term (current) drug therapy; Z92.241 Personal history of systemic steroid therapy
CPT/HCPCS: 47562; 36415; 82962; 83036; 84443; 85610; 85730; 88304; 93005; J7120; J2405

== ENCOUNTER 2023-01-04 16:22 | Emergency (ER) | payer MEDICARE, SELFPAY ==
[2023-01-04 16:23] VITALS: BP 133/64; PULSE 82; RESP 20; TEMP 36.6; O2SAT 99; BMI 42.8
--- NOTE | 2023-01-04 16:39 | EDS_ITS ---
HPI History of Present Illness Chief Complaint: Back Narrative Narrative: Presents with lower back pain. Patient states she gets this about once every year or so. About 3 or so days ago she was doing a lot of cleaning in her house. She was moving boxes. Picking things up twisting and bending and scrubbing. This is not something she normally does. She did not get sudden onset of pain but she got slow progression of pain that started in the evening afterwards. She has been sore f or the last few days. She has never had any radicular symptoms. No bowel or bladder dysfunction. No fevers or chills or recent infections. She states earlier today she went out and cut and stacked firewood and this aggravated it and prompted her to come in. She tried putting heat on it but that seemed to make it worse. She still has no neurologic symptoms at all. Again no bowel or bladder symptoms. No history of cancers. No recent weight loss. It is better if she stays still and worse if she twists. The pain is in the upper and mid lumbar area. It really does not radiate anywhere. She she has no radiation to the abdomen. No hematuria or history of kidney stones. No tearing ripping or severe pain. Breathing is normal. [facility] Medical History Anemia Arthritis Diabetes History of irregular heartbeat History of renal disease History of steroid therapy History of stress test Hoarseness Hx of endometriosis Hypertension Insulin dependent diabetes mellitus Post-menopausal Restless legs Shortness of breath on exertion Sleep apnea Thyroid disease Wears glasses Home Medications albuterol sulfate 90 mcg/actuation aerosol inhaler 2 puff inhalation Q6H PRN PRN Sob &/Or Wheezing 03/27/19 [History Last Taken Unknown] diltiazem HCl 360 mg tablet,extended release 24 hr 360 mg PO DAILY 03/27/19 [History Last Taken Unknown] fenofibrate nanocrystallized 145 mg tablet 145 mg PO DAILY 03/27/19 [History Last Taken Unknown] levothyroxine 50 mcg tablet 50 mcg PO DAILY 03/27/19 [History Last Taken 05/07/22] fluticasone 250 mcg-salmeterol 50 mcg/dose blistr powdr for inhalation (Wixela Inhub) 1 inh inhalation BID 04/30/22 [History Last Taken Unknown] olmesartan 20 mg tablet 20 mg PO DAILY 04/30/22 [History Last Taken Unknown] dulaglutide 3 mg/0.5 mL subcutaneous pen injector 3 mg subcut QWEEK 01/04/23 [History Last Taken Unknown] hydrocodone-acetaminophen 5-325mg 5mg-325mg 1 tab PO Q6H PRN PRN Pain 3 days #12 TABLETS 01/04/23 [Rx Last Taken Unknown] insulin detemir U-100 100 unit/mL (3 mL) subcutaneous pen 25 unit subcut QHS 01/04/23 [History Last Taken Unknown] pregabalin 75 mg capsule 75 mg PO QHS 01/04/23 [History Last Taken Unknown] Allergy/AdvReac Type Severity Reaction Status Date / Time liraglutide [From Victoza] Allergy PT UNSURE Verified 01/04/23 16:24 OF REACTION empagliflozin AdvReac Other Verified 01/04/23 16:35 [From Jardiance] Surgical History History of cardiac catheterization Hx of appendectomy Hx of hysterectomy Hx of tonsillectomy Social History Smoking Status: Never smoker ROS ROS ED Constitutional Constitutional ED: Denies chills, fever(s) or sweats Eyes Eyes: Denies change in vision ENT ENT ED: Denies rhinorrhea Cardiovascular Cardiovascular: Denies chest pain or palpitations Respiratory/Chest Respiratory/Chest: Denies dyspnea or dyspnea on exertion Gastrointestinal Gastrointestinal: Denies abdominal pain, constipation, diarrhea, melena, nausea or vomiting Genitourinary Genitourinary ED: Denies dysuria, hematuria or urinary frequency Musculoskeletal Musculoskeletal: Reports back pain; Denies myalgias or neck pain Integumentary Denies abscess, Abrasions or rash Neurologic Neurologic: Denies headache(s), paresthesias or weakness Hematologic/Lymphatic Hematologic/Lymphatic: Denies easy bleeding or easy bruising Allergic/Immunologic Allergic/Immunologic ED: Denies urticaria EXAM Physical Exam Narrative Exam Narrative: CONSTITUTIONAL: Patient is nontoxic in appearance. The patient looks mildly uncomfortable. Work of breathing looks normal. HEENT: No notable trauma. Mucous membranes moist. . No sign of intraoral infection. EYES: No conjunctival injection. No pallor. NECK: No meningismus. No JVD. CARDIOVASCULAR: Regular rate. Regular rhythm. No notable murmur. No JVD. RESPIRATORY: No respiratory distress. Breathing is unlabored. No wheezes. No rhonchi. No rales. No pain with a deep breath. GASTROINTESTINAL: Not distended. Bowel sounds are normal. No tenderness. No guarding. No rebound. No palpable mass. No bruit. GENITOURINARY: No tenderness over the bladder. No CVA tenderness. MUSCULOSKELETAL: Atraumatic. No peripheral edema. No cord. No tenderness along the deep venous system. No asymmetry. Distal pulses are intact. NEUROLOGICAL: Patient is alert and oriented. No focal deficit noted. She does have discomfort with palpation bilateral paraspinals at around L1-L4. No palpable spasm. She has some excoriation where she has been scratching but no erythema or lesions. Sensation is completely normal Patient can stand on toes and heels and do squats She has +2 bilateral patellar Achilles reflex both +2. SKIN: No noted rashes. No diaphoresis. No vesicles noted. No notable pallor. PSYCHIATRIC: Patient is calm. Mood is appropriate. Const Vital Signs: 01/04/23 16:23 Temperature 98 F Temperature Source Temporal Pulse Rate 82 Respiratory Rate 20 H Blood Pressure 133/64 H Blood Pressure Mean 87 Pulse Ox 99 Oxygen Delivery Method Room Air MDM MDM MDM Narrative Medical decision making narrative: Patient has a history of intermittent back pain. She has never had surgery. Other than the age of 72 she has no red flags of back pain. She has a mechanical cause of this. I do not think imaging or blood work are needed at this point. Certainly if the pain goes on for a period of time or couple weeks we may need to do further imaging. She states she has gotten pain meds before and it helps within a few days. I will give her a shot of morphine which she is used here. I do not want to use nonsteroidals as she has a history of kidney disease. We will get her home on a short course of hydrocodone. She has used this before per her online prescribing report and on review of prior medical records. We discussed returning with worsening pain, fevers, any bowel bladder dysfunction or pain or numbness radiating down her legs. Discharge Plan Triage Chief Complaint: Back ED Provider: Eliud Skaggs Dx/Rx/DC Orders Clinical Impression: Acute lumbar myofascial strain, History of kidney disease Instructions: ED Back Sprain/Strain Prescriptions: New hydrocodone-acetaminophen [hydrocodone-acetaminophen] 5-325 mg tablet 1 tab PO Q6H PRN PRN (Reason: Pain) 3 Days Qty: 12 0RF No Action levothyroxine 50 MCG tablet 50 mcg PO DAILY albuterol sulfate 1 INHALER inhaler 2 puff inhalation Q6H PRN PRN (Reason: Sob &/Or Wheezing) diltiazem HCl 360 MG tablet extended release 24 hr 360 mg PO DAILY fenofibrate nanocrystallized 145 MG tablet 145 mg PO DAILY fluticasone propion-salmeterol [Wixela Inhub] 250-50 mcg/dose blister with device 1 inh INHALATION BID olmesartan 20 mg tablet 20 mg PO DAILY pregabalin 75 mg Capsule 75 mg PO QHS Levemir FlexTouch U100 Insulin 100 unit/mL (3 mL) Insulin Pen 25 unit SUBCUT QHS dulaglutide 3 mg/0.5 mL Pen Injector 3 mg SUBCUT QWEEK Primary Care Provider: Scar Ceballos Referrals: Scar Ceballos MD [Primary Care Provider] - 3-5 Days if not improving Disposition Disposition: Home, Self Care
[2023-01-04] MEDS: Morphine 4 MG/ML Syringe IM (17:02)
== END 2023-01-04 17:39 | disposition home or self-care (01) ==
LOC: ED 16:57
PROVIDERS: Emergency Provider Emergency Medicine; PCP Physician Assistant; Visit Provider Emergency Medicine
DX: S39.012A Strain of muscle, fascia and tendon of lower back, initial encounter (principal); E11.9 Type 2 diabetes mellitus without complications; Z79.4 Long term (current) use of insulin; I10 Essential (primary) hypertension; X50.1XXA Overexertion from prolonged static or awkward postures, initial encounter
CPT/HCPCS: 96372; 99282

== ENCOUNTER 2024-01-27 17:25 | Emergency (ER) | payer MEDICARE, SELFPAY ==
[2024-01-27 17:25] VITALS: BP 129/75; PULSE 66; RESP 16; TEMP 36.6; O2SAT 97; BMI 41.8
--- NOTE | 2024-01-27 20:41 | EDS_ITS ---
HPI History of Present Illness Chief Complaint: Back Informant: patient Onset/Context/Timing Onset: Days (3) Context: Gradual Onset Injury: repetitive motion Timing: Continuous Quality: Sharp, Aching and Burning Location: Thoracic Worsened by: improves with Nothing Relieved by: Nothing Associated Symptoms Associated Symptoms: Negative for Numbness, Tingling, Radiation to Right Leg, Radiation to Left Leg, Fever, Abdominal Pain, Dysuria, Unable to Ambulate, Unable to Transfer, Urinary Retention, Urinary Incontinence, Constipation or Fecal Incontinence Narrative Narrative: Patient presents with back pain that has been getting worse over the past 3 days. Patient states she was doing some gardening and her pain began the next day. Patient describes it as sharp, aching, and burning. Patient states it is over the left lower thoracic area. Patient states nothing makes it better nothing makes it worse. Patient denies any radiation of the pain. Patient denies any paresthesias or weakness. Patient denies any bowel or bladder changes. Patient denies any saddle anesthesia. [facility] Medical History (Updated 01/27/24 @ 21:[address] Rio Arevalo, DO) Wears glasses Post-menopausal History of steroid therapy Thyroid disease Insulin dependent diabetes mellitus Diabetes Arthritis History of renal disease Anemia Restless legs Sleep apnea Shortness of breath on exertion Hoarseness History of stress test Hypertension History of irregular heartbeat Hx of endometriosis Home Medications ?Medication ?Instructions ?Recorded ?Last Taken ?Type albuterol sulfate 90 mcg/actuation 2 puff inhalation Q6H PRN PRN Sob 03/27/19 Unknown History aerosol inhaler &/Or Wheezing diltiazem HCl 360 mg 360 mg PO DAILY 03/27/19 Unknown History tablet,extended release 24 hr fenofibrate nanocrystallized 145 145 mg PO DAILY 03/27/19 Unknown History mg tablet levothyroxine 50 mcg tablet 50 mcg PO DAILY 03/27/19 05/07/22 History fluticasone 250 mcg-salmeterol 50 1 inh inhalation BID 04/30/22 Unknown History mcg/dose blistr powdr for inhalation (Atif Hanna) olmesartan 20 mg tablet 20 mg PO DAILY 04/30/22 Unknown History dulaglutide 3 mg/0.5 mL 3 mg subcut QWEEK 01/04/23 Unknown History subcutaneous pen injector insulin detemir U-100 100 unit/mL 25 unit subcut QHS 01/04/23 Unknown History (3 mL) subcutaneous pen pregabalin 75 mg capsule 75 mg PO QHS 01/04/23 Unknown History cyclobenzaprine 10 mg tablet 10 mg PO QHS PRN PRN Muscle Spasm 01/27/24 Unknown Rx #10 TABLETS hydrocodone-acetaminophen 5-325mg 1 tab PO Q6H PRN PRN Pain 3 days 01/27/24 Unknown Rx 5mg-325mg #12 TABLETS Allergy/AdvReac Type Severity Reaction Status Date / Time liraglutide (From Victoza) Allergy PT UNSURE Verified 01/27/24 17:26 OF REACTION empagliflozin (From AdvReac Other Verified 01/27/24 17:26 Jardiance) Surgical History History of cardiac catheterization Hx of hysterectomy Hx of tonsillectomy Hx of appendectomy Social History Smoking Status: Never smoker ROS ROS ED Constitutional Constitutional ED: Denies chills or fever(s) Eyes Eyes: Denies blurry vision or change in vision ENT ENT ED: Denies rhinorrhea or sore throat Cardiovascular Cardiovascular: Denies chest pain or palpitations Respiratory/Chest Respiratory/Chest: Denies cough or dyspnea Gastrointestinal Gastrointestinal: Denies nausea or vomiting Genitourinary Genitourinary ED: Denies dysuria or hematuria Musculoskeletal Musculoskeletal: Reports back pain; Denies neck pain Integumentary Denies abscess or rash Neurologic Neurologic: Denies headache(s) or weakness Allergic/Immunologic Allergic/Immunologic ED: Denies mouth swelling or urticaria EXAM Physical Exam Const Vital Signs: 01/27/24 17:25 Temperature 98 F Temperature Source Temporal Pulse Rate 66 Respiratory Rate 16 Blood Pressure 129/75 H Blood Pressure Mean 93 Pulse Ox 97 Oxygen Delivery Method Room Air Positive well nourished and well developed General Appearance ED: well developed and NAD HEENT Reports moist mucous membranes Neck supple and no JVD Resp normal respiratory effort and clear to auscultation bilaterally Cardio regular rate and regular rhythm Back/Spine Back/Spine Narrative: There is tenderness and mild spasm of the left lower thoracic paraspinal muscles. There is no bony crepitance or step-off noted. Range of motion was slightly limited in all motions of the thoracic spine secondary to pain. Lungs are clear and equal bilaterally. There is good respiratory effort noted. Thoracic Spine / Upper Back: paraspinal muscle tenderness left Neuro oriented x3 and no sensory deficits noted Sensorium / Orientation: alert Motor Exam: strength 5/5 throughout Psych mental status grossly normal MDM MDM MDM Narrative Medical decision making narrative: Patient was advised that this is most likely muscular strain. Patient was given prescriptions for a short course of [place] and Flexeril. Patient was instructed to use ice to the area. Patient was instructed to do gentle stretching exercises. Patient was instructed to follow-up with her primary care physician in 5 to 7 days. Patient understood and was agreeable with the plan. All questions were answered. Discharge Plan Triage Chief Complaint: Back ED Provider: Rio Arevalo Dx/Rx/DC Orders Clinical Impression: Acute thoracic myofascial strain, Diabetes Instructions: ED Back Sprain/Strain Prescriptions: New cyclobenzaprine 10 mg tablet 10 mg PO QHS PRN PRN (Reason: Muscle Spasm) Qty: 10 0RF Continued hydrocodone-acetaminophen 5-325 mg tablet 1 tab PO Q6H PRN PRN (Reason: Pain) 3 Days Qty: 12 0RF No Action levothyroxine 50 MCG tablet 50 mcg PO DAILY albuterol sulfate 1 INHALER inhaler 2 puff inhalation Q6H PRN PRN (Reason: Sob &/Or Wheezing) diltiazem HCl 360 MG tablet extended release 24 hr 360 mg PO DAILY fenofibrate nanocrystallized 145 MG tablet 145 mg PO DAILY fluticasone propion-salmeterol [Wixela Inhub] 250-50 mcg/dose blister with device 1 inh INHALATION BID olmesartan 20 mg tablet 20 mg PO DAILY pregabalin 75 mg Capsule 75 mg PO QHS Levemir FlexTouch U100 Insulin 100 unit/mL (3 mL) Insulin Pen 25 unit SUBCUT QHS dulaglutide 3 mg/0.5 mL Pen Injector 3 mg SUBCUT QWEEK Primary Care Provider: Ann Francois Referrals: Ann Francois PA [Primary Care Provider] - 5-7 Days Print Language: Latvian Disposition Disposition: Home, Self Care
--- NOTE | 2024-01-27 21:32 | ED.RN ---
Pt is irrate that she has been here for 4 hours and has not been given a shot for pain like usual. This RN educated pt that she has a meds to bed order and that the script will be sent down to pharmacy for her to take home tonight. Pt is even more upset that she has to wait longer for that. This RN explained that she could pick them up tomorrow. Pt yells i want them now, right now!!! This RN educated pt on the ED process and prioritizing pt's based on acuity. This RN states that although pt is in pain, her injury is 3 days old and is from over use, as stated by herself when checking in the pt, indicating that her case is not life threatening and would create a longer stay in the ED as we need to treat more high priority pt's first. Pt denies understanding.
== END 2024-01-27 21:38 | disposition home or self-care (01) ==
PROVIDERS: Emergency Provider Emergency Medicine; PCP Physician Assistant; Visit Provider Emergency Medicine
DX: S29.012A Strain of muscle and tendon of back wall of thorax, initial encounter (principal); E11.9 Type 2 diabetes mellitus without complications; Z79.4 Long term (current) use of insulin; M62.830 Muscle spasm of back; X58.XXXA Exposure to other specified factors, initial encounter; Y93.H2 Activity, gardening and landscaping; Z79.899 Other long term (current) drug therapy
CPT/HCPCS: 99282

== ENCOUNTER 2025-05-21 14:40 | Emergency (ER) | payer MEDICARE, SELFPAY ==
[2025-05-21 14:41] VITALS: BP 164/78; PULSE 102; RESP 20; TEMP 36.3; O2SAT 95; BMI 40.6
[2025-05-21] MEDS: Lidocaine 2% Viscous15 ML UDC 15 ML PO (15:47)
[2025-05-21] MEDS: 0.9% Normal Saline (1000mL) 1,000 ML 999 ML IV (15:47)
[2025-05-21 15:51] LABS: Hematocrit 35.8 % (37-47); Hemoglobin 11.9 g/dL (12.0-15.0); Immature Granulocytes Count 0.040 X10^3/uL (0.0-0.0); Mean Corp Hgb Conc 33.2 g/dL (32-36); Mean Corpuscular Volume 85.6 fL (81-99); Mean Platelet Vol. 9.3 fl (6.2-12.0); NRBC Flagged by Analyzer 0 % (0-5); Platelet Count 329 K/mm3 (150-450); RBC Distribution Width CV 14.0 % (11.6-14.6); RBC Distribution Width SD 43.6 fl (35.1-43.9); Red Blood Count 4.18 M/mm3 (4.2-5.4); White Blood Count 7.4 K/mm3 (4.4-11.0)
[2025-05-21] MEDS: Famotidine 200 MG/20 ML MDV 20 MG in 0.9% Normal Saline (Pres. free 8 ML 300 MG IV (15:53)
--- NOTE | 2025-05-21 15:59 | EDS_ITS ---
HPI History of Present Illness Chief Complaint: Chest Other Detail of Chief Complaint: Patient reports chest pain however she points to the epigastric area Informant: patient Onset/Context/Timing Onset: Month(s) Context: Gradual Onset Timing: Continuous (Past several days. Was intermittent prior.) Quality: Discomfort. Cannot be more specific Location: States chest, points to the epigastric area Current Severity: Mild Maximum Severity: Moderate Worsened by: Had problems with vomiting earlier this week. Has had poor appetite. Relieved by: Nothing Associated Symptoms Associated Symptoms: Nausea and vomiting, thirsty, dry mouth and lightheadedness with standing Narrative Narrative: Patient presents with reported chest pain. Actually she has epigastric pain. 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 They do not feel this is her heart. There was concern this may be her fibromyalgia. She was placed on new medicine for her fibromyalgia. She had vomiting that day after she was prescribed the medicine. She denied coffee-ground emesis or hematemesis. She denies black or maroon-colored stool. She denies blood or mucus in her stool. She denies change in color, consistency or caliber of her stool. Patient denies chest pressure, tightness, heaviness or pain with breathing. Patient denies orthopnea or PND. Patient denies dyspnea or dyspnea on exertion. Patient had no recent upper respiratory infections. Recent Illness/Hospitalization: Yes (Diagnosed with fibromyalgia.) [facility] Medical History Wears glasses Post-menopausal History of steroid therapy Thyroid disease Insulin dependent diabetes mellitus Diabetes Arthritis History of renal disease Anemia Restless legs Sleep apnea Shortness of breath on exertion Hoarseness History of stress test Hypertension History of irregular heartbeat Hx of endometriosis Home Medications ?Medication ?Instructions ?Recorded ?Last Taken ?Type albuterol sulfate 90 mcg/actuation 2 puff inhalation Q 6H PRN PRN Sob 03/27/19 Unknown History aerosol inhaler &/Or Wheezing diltiazem HCl 360 mg 360 mg PO DAILY 03/27/19 Unk nown History tablet,extended release 24 hr fenofibrate nanocrystallized 145 145 mg PO DAILY 03/27 Unknown History mg tablet levothyroxine 50 mcg tablet 50 mcg PO DAILY 03/27/19 0 05/07/22 History fluticasone 250 mcg-salmeterol 50 1 inh inhalation BID 04/30/22 Unknown History mcg/dose blistr powdr for inhalation (Wixela Inhub) olmesartan 20 mg tablet 20 mg PO DAILY 04/30/22 Unkn own History dulaglutide 3 mg/0.5 mL 3 mg subcut QWEEK 01/04/23 U nknown History subcutaneous pen injector insulin detemir U-100 100 unit/mL 25 unit subcut QHS 0 01/04/23 Unknown History (3 mL) subcutaneous pen pregabalin 75 mg capsule 75 mg PO QHS 01/04/23 Unknow n History cyclobenzaprine 10 mg tablet 10 mg PO QHS PRN PRN Musc le Spasm 01/27/24 Unknown Rx #10 TABLETS hydrocodone-acetaminophen 5-325mg 1 tab PO Q6H PRN PRN Pain 3 days 01/27/24 Unknown Rx 5mg-325mg #12 TABLETS sucralfate 1 gram tablet (Carafate) 1 g PO UD #60 tabs 05/21/25 Unknown Rx Allergy/AdvReac Type Severity Reaction Status Date / Time liraglutide (From Victoza) Allergy PT UNSURE Verified 05/21/25 14:41 OF REACTION empagliflozin (From AdvReac Other Verified 05/21/25 14:41 Jardiance) Surgical History History of cardiac catheterization Hx of hysterectomy Hx of tonsillectomy Hx of appendectomy Social History housing: house Smoking Status: Never smoker ROS ROS ED Constitutional Constitutional ED: Denies chills, fever(s), subjective, sweats or weight loss Eyes Eyes: Denies blurry vision or change in vision ENT ENT ED: Denies ear pain, rhinorrhea or sore throat Cardiovascular Cardiovascular: Denies chest pain, orthopnea, palpitations, paroxysmal nocturnal dyspnea or racing heartbeat Respiratory/Chest Respiratory/Chest: Denies cough, dyspnea, dyspnea on exertion, orthopnea or paroxysmal nocturnal dyspnea Gastrointestinal Gastrointestinal: Reports abdominal pain and other Details: Patient is status postcholecystectomy. She has no history of intolerance to greasy or fried foods. ; Denies constipation, diarrhea, melena, nausea or vomiting Genitourinary Genitourinary ED: Denies dysuria, hematuria or urinary frequency Musculoskeletal Musculoskeletal: Denies arthralgias, back pain or myalgias Integumentary Denies rash Neurologic Neurologic: Denies headache(s), paresthesias or weakness Hematologic/Lymphatic Hematologic/Lymphatic: Reports systems reviewed and no addt'l complaints, except as documented EXAM Physical Exam Const Vital Signs: 05/21/25 14:41 05/21/25 15:55 Temperature 97.3 F L Temperature Source Temporal Pulse Rate 102 H Respiratory Rate 20 H Respiratory Effort Normal Non-Labored Blood Pressure 164/78 H Blood Pressure Mean 106 Pulse Ox 95 Oxygen Delivery Method Room Air Positive well nourished and well developed Constitutional Narrative: BMI is 40.6. General Appearance ED: well developed, NAD and pallor; Negative for cyanotic or diaphoretic HEENT Reports moist mucous membranes HEENT Narrative: Head is atraumatic normocephalic. Ears normal. Nares patent. Posterior pharynx is normal. Uvula is midline. Eyes PERRL and EOMs intact bilaterally General Eye ED: Negative for pale conjunctiva or scleral icterus Neck no lymphadenopathy, supple and no JVD Chest Wall inspection of chest normal and palpation of chest normal Resp normal respiratory effort and clear to auscultation bilaterally Cardio regular rate, regular rhythm, S1 normal heart sound, S2 normal heart sound and no murmurs GI normal to inspection, nondistended, normoactive bowel sounds, non-distended and no masses; Negative for non-tender or hepatosplenomegaly GI Narrative: There is pain in the epigastric area. Negative clinical Vasquez sign. No splenomegaly. Back/Spine no CVA tenderness Extremity normal to inspection General Extremety ED: Negative for edema or tenderness General Extremity: Negative for edema Neuro oriented x3 and CN's II-XII intact bilaterally Sensorium / Orientation: alert Psych mental status grossly normal Skin no rashes or lesions noted, no wounds and skin turgor normal General Skin Exam: pallor; Negative for elasticity normal or jaundice MDM MDM MDM Narrative Medical decision making narrative: Patient's history and physical is not consistent with cardiac disease. History & Record Review Additional record(s) reviewed:: Prior outpatient record (Records for office visit May 10 and May 18 were reviewed.) Lab Data Attestation: I reviewed the patient's lab results. Lab results narrative: CBC reveals anemia with normal indices. Electrolyte panel is unremarkable. Glucose is elevated 188 with normal CO2 anion gap. Since pain is epigastric cardiac markers were not obtained. Labs: Laboratory Results - last 24 hr 05/21/25 15:40 WBC 7.4 RBC 4.18 L Hgb 11.9 L Hct 35.8 L MCV 85.6 MCH 28.5 MCHC 33.2 RDW Std Deviation 43.6 RDW Coeff of Tito 14.0 Plt Count 329 MPV 9.3 Immature Gran % (Auto) 0.500 Neut % (Auto) 66.0 Lymph % (Auto) 22.2 [place] % (Auto) 6.9 Eos % (Auto) 3.6 Baso % (Auto) 0.8 Absolute Neuts (auto) 4.9 Absolute Lymphs (auto) 1.64 Nucleated RBC % 0 Sodium 136 Potassium 4.3 Chloride 101 Carbon Dioxide 21.1 Anion Gap 14 BUN 10 Creatinine 1.15 Estim Creat Clear Calc 45.87 L Est GFR (MDRD) Non-Af 50 L BUN/Creatinine Ratio 8.8 L Glucose 188 H Calcium 9.6 Treatment and Re-Evaluation :: Patient was treated with GI cocktail and IV Pepcid. When she was reassessed at 1701. She states her pain was resolved. She has no epigastric pain. My opinion this is due to her reflux. She will be discharged home. Will add sucralfate to her present regimen. Discharge Plan Triage Chief Complaint: Chest Other ED Provider: Zimmerman,Ashish Dx/Rx/DC Orders Clinical Impression: Epigastric abdominal pain, GERD with esophagitis, Hypertension, Diabetes Instructions: ED GERD (Adult) Prescriptions: New sucralfate [Carafate] 1 gram tablet 1 g PO UD Qty: 60 0RF Rx Instructions: Half hour AC and at bedtime No Action levothyroxine 50 MCG tablet 50 mcg PO DAILY albuterol sulfate 1 INHALER inhaler 2 puff inhalation Q6H PRN PRN (Reason: Sob &/Or Wheezing) diltiazem HCl 360 MG tablet extended release 24 hr 360 mg PO DAILY fenofibrate nanocrystallized 145 MG tablet 145 mg PO DAILY fluticasone propion-salmeterol [Wixela Inhub] 250-50 mcg/dose blister with device 1 inh INHALATION BID olmesartan 20 mg tablet 20 mg PO DAILY pregabalin 75 mg Capsule 75 mg PO QHS Levemir FlexTouch U100 Insulin 100 unit/mL (3 mL) Insulin Pen 25 unit SUBCUT QHS dulaglutide 3 mg/0.5 mL Pen Injector 3 mg SUBCUT QWEEK cyclobenzaprine 10 mg tablet 10 mg PO QHS PRN PRN (Reason: Muscle Spasm) Qty: 10 0RF hydrocodone-acetaminophen 5-325 mg tablet 1 tab PO Q6H PRN PRN (Reason: Pain) 3 Days Qty: 12 0RF Primary Care Provider: Chicho Brian Referrals: Ann Francois PA [Non-Staff, Medical] Print Language: Nauruan Disposition Disposition: Home, Self Care
--- OUTSIDE RECORDS SUMMARY | 2025-05-21 16:12 | XMS RPT_ITS | CCD ---
Author Organization [facility] CliniSyms Care Team Providers Care Emergency Department Name Role Phone Scar Ceballos MD Primary Care Provider [phone] Ann Francois PA-C Primary Care Provider [phone] MAGGY AKERS Referring Unavailable Ann FRANCOIS Primary Care Unavailable Scar Ceballos MD Primary Care Provider [phone] Ann Francois PA-C Primary Care Provider [phone] Rio Arevalo Attending Unavailable Ann Francois Primary Care Unavailable Scar Ceballos MD Primary Care Provider [phone] Cullen Francois PA-C Primary Care Provider Unavailable Haagen BOBBIN STRIPPER.DEANDRE, Myla Unavailable Suppan BOBBIN STRIPPER.DEANDRE, Michelle A Unavailable Suppan BOBBIN STRIPPER.DEANDRE, Michelle A Unavailable Suppan BOBBIN STRIPPER.DEANDRE, Michelle A Unavailable [phone] Suppan BOBBIN STRIPPER.GLASS CALIBRATOR, Michelle A Primary Care Provi zeke Haagen BOBBIN STRIPPER.GLASS CALIBRATOR, Myla Unavailable Suppan BOBBIN STRIPPER.GLASS CALIBRATOR, Michelle A Unavailable [phone] AINSLEY, ALVIN QUAN Referring Unavailable SUPPAN, MCIHELLE A Primary Care Unavailable SUPPAN, MICHELLE A Referring Unavailable SUPPAN, MICHELLE A Primary Care Unavailable HAAGENANAY Attending Unavailable SUPPAN, MICHELLE A Primary Care Unavailable VESHAWN GAYLEDRA Referring Unavailable SUPPAN, MICHELLE A Primary Care Unavailable SUPPAN, MICHELLE A Referring Unavailable SUPPAN, MICHELLE A Primary Care Unavailable AINSLEY, QARAB KADEEM Attending Unavailable SUPPAN, MICHELLE A Referring Unavailable SUPPAN, MICHELLE A Primary Care Unavailable CHICHO CARTER Referring Unavailable SUPPAN, MICHELLE A Primary Care Unavailable SUPPAN, MICHELLE A Referring Unavailable SUPPAN, MICHELLE A Primary Care Unavailable SUPPAN, MICHELLE A Attending Unavailable SUPPAN, MICHELLE A Primary Care Unavailable VETOVITZ, KRISTIN Attending Unavailable SUPPAN, MICHELLE A Referring Unavailable SUPPAN, MICHELLE A Primary Care Unavailable SUPPAN, MICHELLE A Referring Unavailable SUPPAN, MICHELLE A Primary Care Unavailable SUPPAN, MICHELLE A Attending Unavailable SELF Referring Unavailable CULLEN FRANCOIS Primary Care Unavailable SUPPAN, MICHELLE A Attending Unavailable SUPPAN, MICHELLE A Primary Care Unavailable VETOVITZ, KRISTIN Attending Unavailable SUPPAN, MICHELLE A Referring Unavailable SUPPAN, MICHELLE A Primary Care Unavailable Allergies Allergy Classification Reported Allergen(s) Allergy Type Date of Onset Reaction(s) Facility Dust (1 source) Dust Substance Allergy 09-26-19 16 Cough [facility] empagliflozin (1 source) empagliflozin Drug Allergy 01-28-20 18 Other: See Comments [facility] Work Phone: liraglutide (1 source) liraglutide Drug Allergy 01-28-20 18 Other: See Comments [facility] Mold Extract (1 source) Mold Extract Drug Allergy 03-19-20 16 Shortness of Breath [facility] (20 sources) Dust; Translations: [DUST] Allergy to substance 09-26-19 16 Cough [facility] (20 sources) empagliflozin; Translations: [EMPAGLIFLOZIN] Drug Allergy 01-28-20 18 Other: See Comments [facility] Work Phone: (20 sources) liraglutide; Translations: [LIRAGLUTIDE] Drug Allergy 01-28-20 18 Other: See Comments [facility] Work Phone: (20 sources) Mold Extract; Translations: [MOLD] Drug Allergy 03-19-20 16 Shortness of Breath [facility] (1 source) empagliflozin Drug Allergy 01-27-20 24 [facility] (1 source) liraglutide Drug Allergy 01-27-20 24 [facility] (20 sources) atorvastatin; Translations: [ATORVASTATIN] Drug Allergy 11-09-19 25 Myalgia [facility] (20 sources) HMG-CoA reductase inhibitor; Translations: [ELNZSRJ-WAY-EOE REDUCTASE INHIBITORS] Drug Intolerance 04-04-20 15 Myalgia [facility] Medications Current Medications Medication Drug Class(es) Dates Sig (Normalized) Sig (Original) acetaminophen 325 mg / HYDROcodone bitartrate 5 mg oral tablet (10 sources) Opioid Agonist Start: 01-04-2023 take 1 tablet by mouth every six hours as needed Hydrocodone-Aceta minophen Active 1 TABLET PO EVERY 6 HOURS NEEDED 12 January 04, 2023 Start: 05-07-2022 take 1 tablet by magan th every eight hours Hydrocodone-Acetaminophen Active 1 TABLE T PO Q8H 15 May 07, 2022 Start: 02-19-2020 End: 02-21-2020 take 1 tablet by mouth every four hours as needed Hydrocodone-Acetaminophen Discontinued 1 TABLET PO EVERY 4 HOURS NEEDED 10 February 19, 2020 February 21, 2020 12:02am Start: 03-27-2019 End: 04-03-2019 take 1 tablet by mouth every six hours as needed Hydrocodone-Acetaminophen Discontinued 1 TABLET PO EVERY 6 HOURS NEEDED 12 3 March 27, 2019 April 03, 2019 12:08am [id number] 200 actuat albuterol 0.09 mg/actuat metered dose inhaler (20 sources) beta2-Adrenergic Agonist Start: 08-03-2020 End: 07-07-2023 take 2 puff(s) by inhalation four times daily as needed for wheezing albuterol HFA (PROVENTIL HFA, VENTOLIN HFA) 90 mcg/actuation inhaler Indications: Moderate persistent asthma without complication (HCC) Inhale 2 Puffs as instructed four times a day as needed for wheezing/shortness of breath. FOR WHEEZING AND SHORTNESS OF BREATH. 54 g 3 07/07/2023 Active Start: 03-27-2019 take 1 puff(s) by in halation every six hours as needed Albuterol Sulfate Active 2 PUFF inhalation EVERY 6 HOURS NEEDED March 27, 2019 12:00am Comment on above: Inhale 2 Puffs as in structed four times daily as needed for Wheezing/Shortness of Breath. FOR WHEEZING AND SHORTNESS OF BREATH. Inhale 2 Puffs as in structed four times a day as needed for wheezing/shortness of breath. FOR WHEEZING AND SHORTNESS OF BREATH. amoxicillin 500 mg oral capsule (4 sources) Penicillin-class Antibacterial Start: End: take 1 capsule by mouth three times daily amoxicillin (AMOXIL) 500 mg capsule Indications: Acute sinusitis, recurrence not specified, unspecified location Take 1 capsule by mouth three times a day for 10 days. 30 capsule 05/10/2025 05/20/2025 Active benoxinate hydrochloride 4 mg/ml / fluorescein sodium 2.5 mg/ml ophthalmic solution (1 source) Diagnostic Dye Start: End: fluorescein-benoxin ate 0.25-0.4 % 1 Drop (FLURESS) Biotin (20 sources) BIOTIN ORAL Take by mouth. Active dicyclomine hydrochloride 20 mg oral tablet (2 sources) Anticholinergic Start: take 20 mg by mouth twice daily Dicyclomine Active 20 MG PO TWICE A DAY March 12, 2022 12:00am 24 hr dilTIAZem hydrochloride 360 mg extended release oral capsule (20 sources) Calcium Channel Skylar Start: End: take 1 capsule by mouth once daily dilTIAZem HCl 360 mg 24 hr capsule Indications: Essential hypertension Take 1 capsule by mouth once daily. 90 capsule 3 11/08/2024 Active Start: 03-27-2019 take 360 mg by mouth once ortiz y Diltiazem Hcl Active 360 MG PO DAILY March 27, 2019 12:00am Comment on above: Take 1 capsule by [facility] once daily. Dulaglutide (17 sources) GLP-1 Receptor Agonist Start: 01-04-2023 Dulaglutide Active 3 MG SC EVERY WEEK January 04, 2023 12:00am Start: 10-01-2022 End: 11-29-2022 dulaglutide (TRULICITY) 1.5 mg/0.5 mL pen injector Inject 1.5 mg subcutaneously one time a week. Inject once per week. Discard Pen After 4 Each 2 10/01/2022 11/29/2022 Discontinued Start: 08-23-2022 End: 10-01-2022 dulaglutide (TRULICITY) 0.75 mg/0.5 mL pen injector Indications: Type 2 diabetes mellitus with stage 3a chronic kidney disease, with long-term current use of insulin (HCC) , Type 2 diabetes mellitus with stage 3 chronic kidney disease, with long-term current use of insulin (HCC) Inject 0.75 mg subcutaneously one time a week. Inject dose once per week. Discard Pen After 4 Each 2 08/23/2022 10/01/2022 Discontinued Comment on above: Inject 0.75 mg subcu taneously one time a week. Inject dose once per week. Discard Pen After Inject 1.5 mg subcut aneously one time a week. Inject once per week. Discard Pen After fenofibrate 145 mg oral tablet (20 sources) Peroxisome Proliferator Receptor alpha Agonist Start: 03-27-20 End: 11-09-19 take 1 tablet by mouth once daily fenofibrate nanocrystallized (TRICOR) 145 mg tablet Indications: Other hyperlipidemia Take 1 tablet by mouth once daily. 90 tablet 3 11/08/2024 Active Comment on above: Take 1 tablet by magan once daily. fluticasone / salmeterol (20 sources) Corticosteroid, beta2-Adrenergic Agonist Start: 11-09-19 take 1 puff(s) by mouth twice daily fluticasone-salmeterol (WIXELA INHUB) 250-50 mcg/dose inhaler Indications: Moderate persistent asthma without complication ([facility]) Inhale 1 Puff as instructed two times a day. Rinse and gargle mouth with water after each use. 3 Each 3 11/08/2024 Active Start: 11-08-2024 take 1 puff(s) by mo [facility] twice daily fluticasone-salmeterol (WIXELA INHUB) 250-50 mcg/dose inhaler Indications: Moderate persistent asthma without complication Inhale 1 Puff as instructed two times a day. Rinse and gargle mouth with water after each use. 3 Each 3 11/08/2024 Active Start: 02-23-2024 End: 11-08-2024 take 1 puff(s) by mouth twice daily fluticasone-salmeterol (WIXELA INHUB) 250-50 mcg/dose inhaler Indications: Moderate persistent asthma without complication Inhale 1 Puff as instructed two times a day. Rinse and gargle mouth with water after each use. 3 Each 3 02/23/2024 11/08/2024 Discontinued Start: 02-23-2024 take 1 puff(s) by mo [facility] twice daily fluticasone-salmeterol (WIXELA INHUB) 250-50 mcg/dose inhaler Indications: Moderate persistent asthma without complication Inhale 1 Puff as instructed two times a day. Rinse and gargle mouth with water after each use. 3 Each 3 02/23/2024 Active Start: 01-03-2023 End: 02-23-2024 take 1 puff(s) by mouth twice daily fluticasone-salmeterol (WIXELA INHUB) 250-50 mcg/dose inhaler Indications: Moderate persistent asthma without complication Inhale 1 Puff as instructed twice daily. Rinse and gargle mouth with water after each use. 3 Each 3 01/03/2023 02/23/2024 Discontinued Start: 01-03-2023 take 1 puff(s) by mo uth twice daily fluticasone-salmeterol (WIXELA INHUB) 250-50 mcg/dose inhaler Indications: Moderate persistent asthma without complication Inhale 1 Puff as instructed twice daily. Rinse and gargle mouth with water after each use. 3 Each 3 01/03/2023 Active Start: 08-23-2022 End: 01-03-2023 take 1 puff(s) by mouth twice daily fluticasone-salmeterol (WIXELA INHUB) 250-50 mcg/dose inhaler Indications: Moderate persistent asthma without complication Inhale 1 Puff as instructed twice daily. Rinse and gargle mouth with water after each use. 3 Each 3 08/23/2022 01/03/2023 Discontinued Start: 08-23-2022 take 1 puff(s) by mo uth twice daily fluticasone-salmeterol (WIXELA INHUB) 250-50 mcg/dose inhaler Indications: Moderate persistent asthma without complication Inhale 1 Puff as instructed twice daily. Rinse and gargle mouth with water after each use. 3 Each 3 08/23/2022 Active Start: 04-30-2022 Fluticasone Pr opion-Salmeterol (Wixela Inhub) 250-50 mcg/dose blister with device Active 1 INH INHALATION TWICE A DAY April 30, 2022:00am Start: 09-06-2021 End: 08-23-2022 take 1 puff(s) by mouth twice daily ADVAIR DISKUS 250-50 mcg/dose inhaler Indications: Moderate persistent asthma without complication INHALE 1 PUFF BY MOUTH TWICE A DAY. RINSE & GARGLE MOUTH WITH WATER AFTER EACH USE 60 Each 5 09/06/2021 08/23/2022 Discontinued (Cost of medication) Comment on above: INHALE 1 PUFF BY MAGAN TH TWICE A DAY. RINSE & GARGLE MOUTH WITH WATER AFTER EACH USE Inhale 1 Puff as ins tructed twice daily. Rinse and gargle mouth with water after each use. Insulin Detemir U-100 (Levemir Flextouch U100 Insulin) 100 unit/mL (3 mL) Insulin Pen (1 source) Start: 01-05-20 Insulin Detemir U-100 (Levemir Flextouch U100 Insulin) 100 unit/mL (3 mL) Insulin Pen Active 25 UNIT SC AT BEDTIME January 04, 2023 12:00am insulin glargine 100 unt/ml injectable solution (20 sources) Insulin Analog Start: 02-12-20 End: 02-12-20 inject 40 [IU] by subcutaneous injection once daily at bedtime insulin glargine (LANTUS U-100 INSULIN) 100 unit/mL injection Indications: Type 2 diabetes mellitus with stage 3a chronic kidney disease, with long-term current use of insulin (HCC) Inject 40 Units subcutaneously daily at bedtime. 27 mL 3 02/11/2025 02/11/2026 Active Start: 11-08-2024 End: 11-08-2025 inject 30 [IU] by subcutaneous injection once daily at bedtime insulin glargine (LANTUS U-100 INSULIN) 100 unit/mL injection Indications: Type 2 diabetes mellitus with stage 3a chronic kidney disease, with long-term current use of insulin (HCC) Inject 30 Units subcutaneously daily at bedtime. 27 mL 3 11/08/2024 02/11/2025 Discontinued Start: 05-10-2024 End: 09-13-2025 inject 20 [IU] by subcutaneous injection once daily at bedtime insulin glargine (LANTUS U-100 INSULIN) 100 unit/mL injection Indications: Type 2 diabetes mellitus with stage 3a chronic kidney disease, with long-term current use of insulin ([facility]) Inject 20 Units subcutaneously daily at bedtime. 6 mL 11 09/13/2024 11/08/2024 Discontinued Start: 11-21-2022 End: 11-29-2022 insulin glargine (LANTUS STEVE OSTAR U-100 INSULIN) 100 unit/mL (3 mL) Indications: Type 2 diabetes mellitus with stage 3 chronic kidney disease, with long-term current use of insulin ([facility]) Inject 25 Units subcutaneously every morning. 5 Each 5 11/21/2022 11/29/2022 Discontinued Start: 12-19-2021 End: 11-21-2022 insulin glargine (LANTUS STEVE OSTAR U-100 INSULIN) 100 unit/mL (3 mL) Indications: Type 2 diabetes mellitus with stage 3 chronic kidney disease, with long-term current use of insulin (HCC) Inject 30 Units subcutaneously every morning. 5 Pen 5 12/19/2021 11/21/2022 Discontinued Start: 09-10-2021 End: 12-19-2021 insulin glargine (BASAGLAR K WIKPEN U-100 INSULIN) 100 unit/mL (3 mL) Indications: diabetes mellitus Inject 30 Units subcutaneously daily at bedtime. 5 Pen 5 09/10/2021 12/19/2021 Discontinued (Not on Formulary) Start: 03-27-2019 Insulin Glargi ne (Lantus Solostar U-100 Insulin) 100 UNIT/ML insulin pen Active 30 UNIT SQ AT BEDTIME March 27, 2019 12:00am Comment on above: Inject 30 Units subc utaneously daily at bedtime. Inject 30 Units subc utaneously every morning. Inject 25 Units subc utaneously every morning. levothyroxine sodium 0.05 mg oral tablet (20 sources) l-Thyroxine Start: 024 End: 025 take 1 tablet by mouth once daily for thyroid dysfunction levothyroxine (LEVOXYL) 50 mcg tablet Indications: Hypothyroidism, unspecified type Take 1 tablet by mouth once daily. Take on empty stomach. For Thyroid 90 tablet 3 11/11/2024 Active Start: 03-27-2019 End: 08-23-2022 take 1 tablet by mouth once daily for thyroid dysfunction levothyroxine (LEVOXYL) 50 mcg tablet Indications: Hypothyroidism, unspecified type Take 1 tablet by mouth once daily. Take on empty stomach. For Thyroid 90 tablet 3 09/10/2021 07/09/2022 Discontinued Comment on above: Take 1 tablet by magan once daily. Take on empty stomach. For Thyroid losartan potassium 50 mg oral tablet (3 sources) Angiotensin 2 Receptor Skylar Start: take 1 tablet by mouth once daily Losartan (Cozaar) 50 MG tablet Active 50 MG PO DAILY March 27, 2019 12:00am magnesium oxide 400 mg oral tablet (18 sources) Start: End: take 1 tablet by mouth twice daily magnesium oxide (MAG-OX) 400 mg (241.3 mg magnesium) tablet Indications: Hypomagnesemia Take 1 tablet by mouth two times a day. 180 tablet 3 02/11/2025 02/11/2026 Active Start: 11-11-2024 End: 11-11-2025 take 1 tablet by mouth once daily magnesium oxide (MAG-OX) 400 mg (241.3 mg magnesium) tablet Indications: Hypomagnesemia Take 1 tablet by mouth once daily. 90 tablet 3 11/11/2024 02/11/2025 Discontinued metFORMIN hydrochloride 500 mg oral tablet (20 sources) Biguanide Start: 07-03-2023 End: 02-11-2026 take 2 tablets by mouth twice daily at mealtime metFORMIN (GLUCOPHAGE) 500 mg tablet Indications: Type 2 diabetes mellitus with stage 3a chronic kidney disease, with long-term current use of insulin (HCC) Take 2 tablets by mouth two times a day with meals. 120 tablet 11 02/11/2025 02/11/2026 Active Start: 09-10-2021 End: 11-21-2022 metFORMIN (GLUCOPHAGE) 500 m g tablet Indications: Type 2 diabetes mellitus with stage 3 chronic kidney disease, with long-term current use of insulin (HCC) Take 2 tablets by mouth twice daily with meals. 360 tablet 3 09/10/2021 07/09/2022 Discontinued Start: 03-27-2019 take 1000 mg by mout h twice daily Metformin Active 1000 MG PO TWICE A DAY March 27, 2019 12:00am Comment on above: Take 2 tablets by mo uth twice daily with meals. Take 2 tablets by mo uth two times a day with meals. methylPREDNISolone (7 sources) Corticosteroid Start: 05-10-2025 End: 05-16-2025 methylPREDNISolone (MEDROL, SELAM,) 4 mg Dose-Pack Indications: Acute sinusitis, recurrence not specified, unspecified location Take as instructed per package. 21 tablet 05/10/2025 05/16/2025 Active Start: 07-06-2022 End: 08-23-2022 methylPREDNISolone (MEDROL D OSE-PACK) 4 mg Dose-Pack Indications: Muscle pain As Instructed per package 21 tablet 0 07/06/2022 08/23/2022 Discontinued (Course of therapy completed) Start: 07-06-2022 methylPREDNISo lone (MEDROL DOSE-PACK) 4 mg Dose-Pack Indications: Muscle pain As Instructed per package 21 tablet 0 07/06/2022 Active Comment on above: As Instructed per radu hinojosa MULTIVITAMIN ORAL (20 sources) MULTIVITAMIN ORA L Take by mouth once daily. Active MULTIVITAMIN ORA L Take by mouth once daily. 0 Active Comment on above: Take by mouth once d aily. olmesartan medoxomil 20 mg oral tablet (20 sources) Angiotensin 2 Receptor Skylar Start: 4 End: 5 take 1 tablet by mouth once daily olmesartan (BENICAR) 20 mg tablet Indications: Primary hypertension Take 1 tablet by mouth once daily. 90 tablet 3 05/10/2025 Active Start: 01-30-2021 End: 11-21-2022 take 1 tablet by mouth once daily olmesartan (BENICAR) 20 mg tablet Indications: Essential hypertension Take 1 tablet by mouth once daily. 90 tablet 3 01/30/2021 03/11/2022 Discontinued Comment on above: Take 1 tablet by magan once daily. omeprazole 40 mg delayed release oral capsule (20 sources) Proton Pump Inhibitor Start: 4 End: 5 take 1 capsule by mouth once daily omeprazole (PRILOSEC) 40 mg capsule Indications: Gastroesophageal reflux disease, unspecified whether esophagitis present Take 1 capsule by mouth once daily. 90 capsule 1 11/08/2024 Active Start: 08-12-2023 End: 11-03-2023 take 1 capsule by mouth once daily before breakfast omeprazole (PRILOSEC) 20 mg capsule Take 1 capsule by mouth daily before breakfast. / hr before meal. 90 capsule 3 08/12/2023 11/03/2023 Discontinued Comment on above: Take 1 capsule by mo uth daily before breakfast. 1/2 hr before meal. Take 1 capsule by mo uth once daily. ondansetron 4 mg disintegrating oral tablet (3 sources) Serotonin-3 Receptor Antagonist Start: 03-12-20 take 4 mg by mouth every six hours Ondansetron Active 4 MG PO EVERY 6 HOURS March 12, 2022 12:00am pantoprazole 20 mg delayed release oral tablet (2 sources) Proton Pump Inhibitor Start: 03-27-20 take 20 mg by mouth once daily Pantoprazole Active 20 MG PO DAILY March 27, 2019 12:00am phenylephrine hydrochloride 25 mg/ml ophthalmic solution (1 source) alpha-1 Adrenergic Agonist Start: 02-05-20 End: 02-06-20 PHENYLephrine 2.5 % 1 Drop (AK-DILATE, KULWANT-SYNEPHRINE) SITagliptin 100 mg oral tablet (20 sources) Dipeptidyl Peptidase 4 Inhibitor Start: 02-12-20 take 1 tablet by mouth once daily SITagliptin phosphate (JANUVIA) 100 mg tablet Indications: Controlled type 2 diabetes mellitus without complication, with long-term current use of insulin (HCC) Take 1 tablet by mouth once daily. 30 tablet 11 02/11/2025 Active Start: 04-01-2023 End: 04-01-2023 take 1 tablet by mouth once daily JANUVIA 25 mg tablet Indications: Type 2 diabetes mellitus with stage 3a chronic kidney disease, with long-term current use of insulin (HCC) TAKE 1 TABLET BY MOUTH EVERY DAY 30 tablet 5 04/01/2023 Active Comment on above: Take 1 tablet by magan th once daily. TAKE 1 TABLET BY MAGAN TH EVERY DAY topiramate 25 mg oral tablet (4 sources) Start: 5 End: 6 take 1 tablet by mouth twice daily topiramate (TOPAMAX) 25 mg tablet Indications: Chronic pain of both shoulders Take 1 tablet by mouth two times a day. 60 tablet 5 05/10/2025 11/06/2025 Active traZODone hydrochloride 150 mg oral tablet (20 sources) Serotonin Reuptake Inhibitor Start: 3 End: 5 take 1 tablet by mouth once daily at bedtime traZODone (DESYREL) 150 mg tablet Indications: Insomnia, unspecified type Take 1 tablet by mouth daily at bedtime. 90 tablet 3 05/10/2025 Active Start: 09-10-2021 End: 09-10-2022 take 1 tablet by mouth once daily at bedtime traZODone (DESYREL) 150 mg tablet Indications: Insomnia, unspecified type Take 1 tablet by mouth daily at bedtime. 90 tablet 3 09/10/2021 09/10/2022 Discontinued Comment on above: Take 1 tablet by magan th daily at bedtime. tropicamide 10 mg/ml ophthalmic solution (1 source) Anticholinergic Start: 02-05-20 End: 02-06-20 tropicamide 1 % 1 Drop (MYDRIACYL) vitamin b12 1 mg extended release oral tablet (17 sources) Vitamin B12 Start: 11-12-19 End: 11-12-19 take 1 tablet by mouth once daily Cyanocobalamin 1,000 mcg TbER Indications: Vitamin B12 deficiency Take 1 tablet by mouth once daily. 90 tablet 3 11/11/2024 11/11/2025 Active Completed/Discontinued Medications Medication Drug Class(es) Dates Sig (Normalized) Sig (Original) alogliptin 25 mg oral tablet (10 sources) Start: 02-11-2025 End: 02-11-2025 take 1 tablet by mouth once daily alogliptin (NESINA) 25 mg tab Indications: Type 2 diabetes mellitus with stage 3a chronic kidney disease, with long-term current use of insulin (HCC) Take 1 tablet by mouth once daily. 90 tablet 3 02/11/2025 02/11/2025 Discontinued (Discontinued by Patient) atorvastatin 20 mg oral tablet (10 sources) HMG-CoA Reductase Inhibitor Start: 05-11-2024 End: 11-08-2024 take 1 tablet by mouth once daily atorvastatin (LIPITOR) 20 mg tablet Indications: Other hyperlipidemia Take 1 tablet by mouth once daily. 90 tablet 1 05/11/2024 11/08/2024 Discontinued (Discontinued by Patient) Start: 02-19-2020 take 10 mg by mouth at bedtime Atorvastatin Active 10 MG PO AT BEDTIME February 19, 2020 12:00am benzonatate 100 mg oral capsule (4 sources) Non-narcotic Antitussive Start: 11-08-2024 End: 11-23-2024 take 1 capsule by mouth three times daily as needed benzonatate (TESSALON PERLE) 100 mg capsule Indications: Acute bronchitis, unspecified organism Take 1 capsule by mouth three times a day as needed for up to 15 days. 45 capsule 11/08/2024 11/23/2024 betamethasone 3 mg/ml / betamethasone acetate 3 mg/ml injectable suspension (2 sources) Corticosteroid Start: 04-18-2025 End: 04-18-2025 betamethasone acetate-betamethas one sodium phosphate 6 mg injection (CELESTONE) Start: 04-18-2025 End: 04-18-2025 6 mg, Injection - FOR ORTHO USE ONLY, ONCE, 1 dose, Starting on Fri04/18/25 at 1358, Until Fri04/18/25 at 1358 dapagliflozin 5 mg oral tablet (2 sources) Sodium-Glucose Cotransporter 2 Inhibitor Start: 03-11-2022 End: 03-20-2022 take 1 tablet by mouth once daily, then take 1 tablet by mouth once daily in the morning dapagliflozin (FARXIGA) 5 mg tablet Indications: Type 2 diabetes mellitus with stage 3a chronic kidney disease, with long-term current use of insulin (HCC) Take 1 tablet by mouth once daily. Take one daily in the morning 30 tablet 0 03/11/2022 03/20/2022 Discontinued Comment on above: Take 1 tablet by magan th once daily. Take one daily in the morning doxepin 3 mg oral tablet (10 sources) Tricyclic Antidepressant Start: 09-10-2022 End: 11-21-2022 take 1 tablet by mouth once daily Doxepin 3 mg tab Indications: Insomnia, unspecified type Take 1 tablet by mouth once daily. 30 tablet 2 09/10/2022 11/21/2022 Discontinued (Discontinued by Patient) Comment on above: Take 1 tablet by magan th once daily. doxycycline hyclate 100 mg oral tablet (4 sources) Tetracycline-class Drug Start: 11-08-2024 End: 11-18-2024 take 1 tablet by mouth twice daily doxycycline (VIBRA-TABS) 100 mg tablet Indications: Acute recurrent frontal sinusitis , Acute bronchitis, unspecified organism Take 1 tablet by mouth two times a day for 10 days. 20 tablet 11/08/2024 11/18/2024 dulaglutide (TRULICITY) 3 mg/0.5 mL pen injector (9 sources) Start: 11-21-2022 End: 04-01-2023 inject 3 mg by subcutaneous injection every week dulaglutide (TRULICITY) 3 mg/0.5 mL pen injector Inject 3 mg subcutaneously one time a week. 4 Each 5 11/21/2022 04/01/2023 Discontinued Start: 11-21-2022 inject 3 mg by subcu taneous injection every week dulaglutide (TRULICITY) 3 mg/0.5 mL pen injector Inject 3 mg subcutaneously one time a week. 4 Each 5 11/21/2022 Active Comment on above: Inject 3 mg subcutan eously one time a week. dulaglutide (TRULICITY) 4.5 mg/0.5 mL pen injector (20 sources) Start: End: inject 4.5 mg by subcutaneous injection every week dulaglutide (TRULICITY) 4.5 mg/0.5 mL pen injector Inject 4.5 mg subcutaneously one time a week. 12 Each 1 12/10/2023 01/19/2024 Discontinued Start: 12-10-2023 End: 06-07-2024 inject 4.5 mg by subcutaneous injection every week dulaglutide (TRULICITY) 4.5 mg/0.5 mL pen injector Inject 4.5 mg subcutaneously one time a week. 12 Each 1 12/10/2023 06/07/2024 Active Start: 06-02-2023 End: 12-10-2023 inject 4.5 mg by subcutaneous injection every week dulaglutide (TRULICITY) 4.5 mg/0.5 mL pen injector Inject 4.5 mg subcutaneously one time a week. 6 mL 1 06/02/2023 12/10/2023 Discontinued Start: 06-02-2023 inject 4.5 mg by sub cutaneous injection every week dulaglutide (TRULICITY) 4.5 mg/0.5 mL pen injector Inject 4.5 mg subcutaneously one time a week. 6 mL 1 06/02/2023 Active Start: 06-02-2023 End: 11-29-2023 inject 4.5 mg by subcutaneous injection every week dulaglutide (TRULICITY) 4.5 mg/0.5 mL pen injector Inject 4.5 mg subcutaneously one time a week. 6 mL 1 06/02/2023 11/29/2023 Active Comment on above: Inject 4.5 mg subcut aneously one time a week. fluticasone propionate 0.05 mg/actuat metered dose nasal spray (9 sources) Corticosteroid Start: End: take 1 spray(s) nasal route once daily fluticasone (FLONASE) 50 mcg/actuation nasal spray Indications: Post-nasal drip Use 1 [place] in each nostril once daily. 1 Bottle 5 09/11/2020 03/20/2022 Discontinued Start: 02-19-2020 take 1 puff(s) by in halation twice daily Fluticasone Propionate Active 1 PUFF INHALATION TWICE A DAY February 19, 2020 12:00am Comment on above: Use 1 [place] in each nostril once daily. gabapentin 300 mg oral capsule (4 sources) Anti-epileptic Agent Start: 10-18-2022 End: 01-15-2023 gabapentin (NEURONTIN) 300 mg capsule Take 1 capsule 30 minutes before bedtime. If no improvement and no side effects, increase to 2 capsules and then even possible 3 capsules. 90 capsule 2 10/18/2022 11/29/2022 Discontinued Comment on above: Take 1 capsule 30 mi nutes before bedtime. If no improvement and no side effects, increase to 2 capsules and then even possible 3 capsules. glimepiride 4 mg oral tablet (20 sources) Sulfonylurea Start: 03-27-2019 End: 10-01-2022 glimepiride (AMARYL) 4 mg tablet Indications: Type 2 diabetes mellitus with stage 3 chronic kidney disease, with long-term current use of insulin (HCC) Take 1 tablet by mouth daily with breakfast. 90 tablet 3 09/10/2021 07/09/2022 Discontinued Comment on above: Take 1 tablet by magan th daily with breakfast. 3 ml insulin degludec 100 unt/ml pen injector (20 sources) Insulin Analog Start: 11-03-2023 End: 05-10-2024 insulin degludec (TRESIBA FLEXTOUCH) 100 unit/mL (3 mL) injection pen Indications: Type 2 diabetes mellitus with stage 3a chronic kidney disease, with long-term current use of insulin (HCC) Inject 15 Units subcutaneously daily at bedtime. 4 mL 5 11/03/2023 05/10/2024 Discontinued Start: 08-12-2023 End: 02-08-2024 insulin degludec (TRESIBA FL EXTOUCH) 100 unit/mL (3 mL) injection pen Indications: Type 2 diabetes mellitus with stage 3a chronic kidney disease, with long-term current use of insulin (HCC) Inject 25 Units subcutaneously daily at bedtime. 9 mL 5 08/12/2023 11/03/2023 Discontinued Start: 07-03-2023 End: 12-30-2023 insulin degludec (TRESIBA FL EXTOUCH) 100 unit/mL (3 mL) injection pen Indications: Type 2 diabetes mellitus with stage 3a chronic kidney disease, with long-term current use of insulin (HCC) Inject 20 Units subcutaneously daily at bedtime. 9 mL 5 07/03/2023 12/30/2023 Active Start: 06-23-2023 End: 12-21-2023 insulin degludec (TRESIBA FL EXTOUCH) 100 unit/mL (3 mL) injection pen INJECT 30 UNITS SUBCUTANEOUSLY DAILY AT BEDTIME. 9 mL 5 06/24/2023 12/21/2023 Active Comment on above: Inject 30 Units subc utaneously daily at bedtime. Inject 20 Units subc utaneously daily at bedtime. Inject 25 Units subc utaneously daily at bedtime. Inject 15 Units subc utaneously daily at bedtime. 3 ml insulin detemir 100 unt/ml pen injector (19 sources) Insulin Analog Start: 04-17-2023 End: 04-16-2024 insulin detemir U-100 (LEVEMIR FLEXPEN) 100 unit/mL (3 mL) injection pen Inject 30 Units subcutaneously daily at bedtime. 9 mL 5 04/21/2023 06/23/2023 Discontinued (Cost of medication) Start: 11-29-2022 End: 05-28-2023 insulin detemir U-100 (LEVEM IR FLEXTOUCH U-100 INSULIN) 100 unit/mL (3 mL) injection pen Inject 25 Units subcutaneously daily at bedtime. 9 Each 1 11/29/2022 04/17/2023 Discontinued Comment on above: Inject 25 Units subc utaneously daily at bedtime. Inject 30 Units subc utaneously daily at bedtime. 10 ml lidocaine hydrochloride 10 mg/ml injection (2 sources) Antiarrhythmic, Amide Local Anesthetic Start: 04-18-2025 End: 04-18-2025 lidocaine (PF) 10 mg/mL (1 %) 5 mL injection (XYLOCAINE) Start: 04-18-2025 End: 04-18-2025 5 mL, Injection - FOR ORTHO USE ONLY, ONCE, 1 dose, Starting on Fri04/18/25 at 1358, Until Fri04/18/25 at 1358 Miconazole (2 sources) Azole Antifungal Start: 04-01-2023 End: 04-01-2023 miconazole nitrate (MONISTAT 7) 2 % (100 mg)- 2 % (9 gram) [facility] Indications: Type 2 diabetes mellitus with stage 3a chronic kidney disease, with long-term current use of insulin (HCC) Use 1 Applicator vaginally once daily for 7 days. 44 g 0 04/01/2023 04/01/2023 Discontinued Comment on above: Use 1 Applicator vag inally once daily for 7 days. predniSONE 20 mg oral tablet (5 sources) Start: 11-24-2021 End: 11-28-2021 take 2 tablets by mouth once daily at mealtime predniSONE (DELTASONE) 20 mg tablet Indications: Bursitis of right shoulder Take 2 tablets by mouth once daily for 4 days. Take daily with food. 8 tablet 11/24/2021 11/28/2021 Start: 02-19-2020 take 20 mg by mouth twice daily at mealtime Prednisone Active 20 MG PO TWICE A DAY February 19, 2020 12:00am With food Comment on above: Take 2 tablets by [facility] once daily for 4 days. Take daily with food. pregabalin 75 mg oral capsule (10 sources) Start: 12-31-2022 End: 04-01-2023 take 1 capsule by mouth once daily at bedtime pregabalin (LYRICA) 75 mg capsule Indications: Restless legs syndrome Take 1 capsule by mouth daily at bedtime for 30 days. Take at 0800 PM 30 capsule 2 12/31/2022 04/01/2023 Discontinued Start: 11-29-2022 End: 02-27-2023 take 1 capsule by mouth once daily pregabalin (LYRICA) 50 mg capsule Indications: RLS (restless legs syndrome) Take 1 capsule by mouth once daily for 90 days. Take at night 1-2 hours before bed. 30 capsule 2 11/29/2022 12/31/2022 Discontinued (Course of therapy completed) Comment on above: Take 1 capsule by mo ut once daily for 90 days. Take at night 1-2 hours before bed. Take 1 capsule by mo ut daily at bedtime for 30 days. Take at 0800 PM rOPINIRole 0.25 mg oral tablet (11 sources) Nonergot Dopamine Agonist Start: 02-26-2023 take 1 tablet by mouth once daily at bedtime rOPINIRole (REQUIP) 0.25 mg tablet TAKE 1 TABLET BY MOUTH EVERYDAY AT BEDTIME 90 tablet 1 02/26/2023 Active Start: 01-16-2023 End: 02-15-2023 take 1 tablet by mouth once daily at bedtime rOPINIRole (REQUIP) 0.25 mg tablet Take 1 tablet by mouth daily at bedtime. 30 tablet 1 01/16/2023 02/15/2023 Active Comment on above: Take 1 tablet by magan th daily at bedtime. TAKE 1 TABLET BY MAGAN TH EVERYDAY AT BEDTIME semaglutide 14 mg oral tablet (8 sources) Start: 4 End: 4 take 1 tablet by mouth once daily before breakfast, then take 4 tablets by mouth once semaglutide (RYBELSUS) 14 mg tablet Take 1 tablet (14 mg) by mouth daily before breakfast. Take 30 minutes before the first food, beverage, or other oral medications of the day with no more than 4 ounces of plain water 90 tablet 1 01/19/2024 05/10/2024 Discontinued (Discontinued by Patient) tirzepatide (MOUNJARO) 2.5 mg/0.5 mL pen injector (6 sources) Start: 5 End: tirzepatide (MOUNJARO) 2.5 mg/0.5 mL pen injector Indications: Type 2 diabetes mellitus with stage 3a chronic kidney disease, with long-term current use of insulin (HCC) , Class 3 severe obesity due to excess calories with serious comorbidity and body mass index (BMI) of 40.0 to 44.9 in adult (HCC) Inject 2.5 mg subcutaneously one time a week. 2 mL 2 11/11/2024 02/11/2025 Discontinued (Cost of medication) Start: 11-11-2024 End: 02-09-2025 tirzepatide (MOUNJARO) 2.5 m g/0.5 mL pen injector Indications: Type 2 diabetes mellitus with stage 3a chronic kidney disease, with long-term current use of insulin ([facility]) , Class 3 severe obesity due to excess calories with serious comorbidity and body mass index (BMI) of 40.0 to 44.9 in adult Inject 2.5 mg subcutaneously one time a week. 2 mL 2 11/11/2024 02/09/2025 Active Start: 11-11-2024 End: 02-09-2025 tirzepatide (MOUNJARO) 2.5 m g/0.5 mL pen injector Indications: Type 2 diabetes mellitus with stage 3a chronic kidney disease, with long-term current use of insulin ([facility]) , Class 3 severe obesity due to excess calories with serious comorbidity and body mass index (BMI) of 40.0 to 44.9 in adult ([facility]) Inject 2.5 mg subcutaneously one time a week. 2 mL 2 11/11/2024 02/09/2025 Active 24 hr venlafaxine 75 mg extended release oral capsule (20 sources) Serotonin and Norepinephrine Reuptake Inhibitor Start: 11-07-2023 End: 05-10-2024 take 1 capsule by mouth once daily venlafaxine ER (EFFEXOR XR) 75 mg 24 hr capsule Take 1 capsule by mouth once daily. Weaning: alternate 75mg every other day with 150mg x 1 week, then 75mg daily x 1 week, the 75mg every other day x 1 week 15 capsule 11/07/2023 05/10/2024 Discontinued (Discontinued by Patient) Start: 07-03-2023 End: 11-03-2023 take 1 capsule by mouth once daily venlafaxine ER (EFFEXOR XR) 150 mg 24 hr capsule Indications: Fatigue, unspecified type , Adjustment disorder with depressed mood Take 1 capsule by mouth once daily. 30 capsule 5 07/03/2023 11/03/2023 Discontinued Start: 06-02-2023 End: 10-26-2023 take 1 capsule by mouth once daily venlafaxine ER (EFFEXOR XR) 75 mg 24 hr capsule TAKE 1 CAPSULE BY MOUTH EVERY DAY 90 capsule 1 06/26/2023 Active Start: 04-01-2023 take 1 capsule by mo ut once daily venlafaxine ER (EFFEXOR XR) 37.5 mg 24 hr capsule Indications: Fatigue, unspecified type Take 1 capsule by mouth once daily. 30 capsule 2 04/01/2023 Active Comment on above: Take 1 capsule by mo uth once daily. TAKE 1 CAPSULE BY MO UT EVERY DAY Take 1 capsule by mo ut once daily. Weaning: alternate 75mg every other day with 150mg x 1 week, then 75mg daily x 1 week, the 75mg every other day x 1 week Problems Active Problems Problem Classification Problem Date Documented Date Episodic/Chronic Abdominal pain (4 sources) Abdominal pain; Translations: [Unspecified abdominal pain] 03-20-2022 Episodic Acute bronchitis (1 source) Acute bronchitis; Translations: [Acute bronchitis, unspecified] 11-08-2024 Episodic Adjustment disorders (1 source) Adjustment disorder with depressed mood; Translations: [Adjustment disorder with depressed mood] 11-03-2023 Chronic Asthma (20 sources) Uncomplicated moderate persistent asthma; Translations: [Moderate persistent asthma, uncomplicated] Onset: 07-11-2015 09-10-2021 Chronic Blindness and vision defects (1 source) Presbyopia; Translations: [Presbyopia] Episodic Cataract (1 source) Bilateral senile combined form cataracts of eyes; Translations: [Combined forms of age-related cataract, bilateral] Chronic Chronic kidney disease (6 sources) Chronic kidney disease stage 3; Translations: [Stage 3 chronic kidney disease, unspecified whether stage 3a or 3b CKD (HCC)] 02-09-2024 Chronic Chronic kidney disease (1 source) Chronic kidney disease; Translations: [Stage 3a chronic kidney disease (HCC)] Onset: 04-29-2025 Coronary atherosclerosis and other heart disease (20 sources) Stable angina; Translations: [Other forms of angina pectoris] Onset: 06-26-2020 Resolved: 04-01-2025 07-14-2020 Chronic Deficiency and other anemia (1 source) Anemia; Translations: [Anemia, unspecified] 05-11-2024 Episodic Diabetes mellitus with complications (20 sources) Type 2 diabetes mellitus; Translations: [Type 2 diabetes mellitus with diabetic chronic kidney disease] Onset: 04-04-2015 09-10-2021 Chronic Diabetes mellitus without complication (3 sources) Type 2 diabetes mellitus without complication; Translations: [Type 2 diabetes mellitus without complications] Onset: 04-01-2025 Chronic Diabetes mellitus without complication (1 source) Diabetes mellitus without complication; Translations: [Type 2 diabetes mellitus with stage 3a chronic kidney disease, with long-term current use of insulin (HCC)] Onset: 03-07-2022 Disorders of lipid metabolism (20 sources) Hyperlipidemia; Translations: [Other hyperlipidemia] Onset: 03-23-2019 03-23-2019 Chronic Esophageal disorders (2 sources) Gastroesophageal reflux disease; Translations: [Gastro-esophageal reflux disease without esophagitis] 11-03-2023 Chronic Essential hypertension (20 sources) Hypertensive disorder; Translations: [Essential (primary) hypertension] Onset: 04-04-2015 04-04-2015 Chronic Fluid and electrolyte disorders (3 sources) Dehydration; Translations: [Dehydration] Onset: 03-14-2025 11-01-2023 Episodic Genitourinary symptoms and ill-defined conditions (1 source) H/O: kidney disease; Translations: [Personal history of other diseases of urinary system] 01-04-2023 Episodic Malaise and fatigue (1 source) Fatigue; Translations: [Other fatigue] 04-01-2023 Episodic Nausea and vomiting (4 sources) Nausea and vomiting; Translations: [Nausea with vomiting, unspecified] 03-20-2022 Episodic Nonmalignant breast conditions (9 sources) Discharge from nipple; Translations: [Nipple discharge] Episodic Nonspecific chest pain (2 sources) Precordial pain; Translations: [Precordial pain] Onset: 04-01-2025 04-01-2025 Episodic Osteoarthritis (2 sources) Osteoarthritis of joint of left shoulder region; Translations: [Primary osteoarthritis, left shoulder] Onset: 04-18-2025 04-18-2025 Chronic Other acquired deformities (2 sources) Lumbar spondylolisthesis; Translations: [Spondylolisthesis, lumbar region] 05-18-2025 Episodic Other connective tissue disease (1 source) Bursitis of right shoulder; Translations: [Bursitis of right shoulder] Episodic Other connective tissue disease (1 source) Muscle pain; Translations: [Myalgia, unspecified site] Episodic Other diseases of kidney and ureters (2 sources) Renal impairment; Translations: [Disorder of kidney and ureter, unspecified] 10-15-2023 Episodic Other hereditary and degenerative nervous system conditions (20 sources) Restless legs; Translations: [Restless legs syndrome] Onset: 02-15-2019 02-15-2019 Chronic Other lower respiratory disease (1 source) Dyspnea on exertion; Translations: [Other forms of dyspnea] 07-21-2023 Episodic Other nervous system disorders (1 source) Other chronic pain; Translations: [Chronic pain of both shoulders] Onset: 07-29-2022 Chronic Other non-traumatic joint disorders (2 sources) Shoulder pain; Translations: [Pain in right shoulder] Episodic Other nutritional; endocrine; and metabolic disorders (4 sources) Body mass index 40+ - severely obese; Translations: [Morbid (severe) obesity due to excess calories] Onset: 03-23-2019 03-23-2019 Chronic Other nutritional; endocrine; and metabolic disorders (20 sources) Severe obesity; Translations: [Morbid (severe) obesity due to excess calories] Onset: 03-23-2019 03-07-2022 Chronic Other nutritional; endocrine; and metabolic disorders (3 sources) Hypomagnesemia; Translations: [Hypomagnesemia] 11-11-2024 Chronic Other nutritional; endocrine; and metabolic disorders (1 source) Body mass index (BMI) 40.0-44.9, adult; Translations: [Class 3 severe obesity with body mass index (BMI) of 40.0 to 44.9 in adult (HCC)] Onset: 03-07-2022 Chronic Other nutritional; endocrine; and metabolic disorders (1 source) Hypomagnesemia; Translations: [Hypomagnesemia] Onset: 03-14-2025 Chronic Other screening for suspected conditions (not mental disorders or infectious disease) (20 sources) Patient encounter status; Translations: [Encounter for screening mammogram for malignant neoplasm of breast] Onset: 01-24-2023 Episodic Other upper respiratory infections (3 sources) Acute recurrent frontal sinusitis; Translations: [Acute frontal sinusitis] Onset: 05-10-2025 11-08-2024 Episodic Pulmonary heart disease (5 sources) Pulmonary hypertension; Translations: [Pulmonary hypertension, unspecified] Onset: 04-12-2025 01-11-2025 Chronic Residual codes; unclassified (20 sources) Obstructive sleep apnea syndrome; Translations: [Obstructive sleep apnea (adult) (pediatric)] Onset: 09-26-2015 09-10-2021 Chronic Residual codes; unclassified (1 source) Obstructive sleep apnea (adult) (pediatric); Translations: [KAM (obstructive sleep apnea)] Onset: 05-01-2022 Chronic Residual codes; unclassified (1 source) Memory impairment; Translations: [Other amnesia] 11-08-2024 Episodic Screening and history of mental health and substance abuse codes (2 sources) Encounter for screening for depression; Translations: [Encounter for screening examination for other mental health and behavioral disorders] Onset: 05-10-2025 Episodic Spondylosis; intervertebral disc disorders; other back problems (2 sources) Degeneration of lumbar intervertebral disc; Translations: [Degeneration of intervertebral disc of lumbar region with discogenic back pain] 05-18-2025 Chronic Spondylosis; intervertebral disc disorders; other back problems (3 sources) Radiculopathy, lumbar region; Translations: [Thoracic or lumbosacral neuritis or radiculitis, unspecified] Onset: 05-10-2025 04-18-2025 Episodic Sprains and strains (2 sources) Lower back injury; Translations: [Strain of muscle, fascia and tendon of lower back, initial encounter] Onset: 02-04-2024 01-04-2023 Episodic Thyroid disorders (20 sources) Hypothyroidism; Translations: [Hypothyroidism, unspecified] Onset: 04-04-2015 04-04-2015 Chronic Unclassified (4 sources) Bilateral shoulder pain, unspecified chronicity 11-08-2024 Unclassified (1 source) Lumbar radicular pain 04-18-2025 Unclassified (1 source) Patient encounter status 05-10-2025 Unclassified (1 source) Class 3 severe obesity with body mass index (BMI) of 40.0 to 44.9 in adult ([facility]); Translations: [Class 3 severe obesity with body mass index (BMI) of 40.0 to 44.9 in adult ([facility])] Onset: 03-07-2022 Past or Other Problems Problem Classification Problem Date Documented Date Episodic/Chronic Biliary tract disease (20 sources) Gallstone; Translations: [Calculus of gallbladder without cholecystitis without obstruction] Onset: 03-20-2022 Resolved: 04-01-2023 Episodic Nutritional deficiencies (4 sources) Cobalamin deficiency; Translations: [Deficiency of other specified B group vitamins] Onset: 11-09-2024 11-08-2024 Episodic Other aftercare (2 sources) [facility] (current) use of insulin; Translations: [Type 2 diabetes mellitus with hyperglycemia, with long-term current use of insulin (HCC)] Onset: 03-07-2022 Episodic Other diseases of kidney and ureters (20 sources) Kidney disease; Translations: [Disorder of kidney and ureter, unspecified] Onset: 03-23-2019 Resolved: 07-06-2019 07-06-2019 Episodic Other lower respiratory disease (20 sources) Dyspnea; Translations: [Shortness of breath] Onset: 07-14-2020 Resolved: 05-01-2022 07-14-2020 Episodic Other non-traumatic joint disorders (20 sources) Bilateral chronic pain of upper limbs; Translations: [Pain in right shoulder] Onset: 07-29-2022 Episodic Other non-traumatic joint disorders (7 sources) Pain in right shoulder; Translations: [Pain in joint, shoulder region] Onset: 07-29-2022 07-26-2022 Episodic Other non-traumatic joint disorders (2 sources) Pain in left shoulder; Translations: [Chronic pain of both shoulders] Onset: 07-29-2022 Episodic Other nutritional; endocrine; and metabolic disorders (20 sources) Morbid obesity; Translations: [Morbid (severe) obesity due to excess calories] Onset: 04-04-2015 Resolved: 03-23-2019 08-27-2021 Chronic Residual codes; unclassified (20 sources) Insomnia; Translations: [Insomnia, unspecified] Onset: 03-19-2016 03-19-2016 Episodic Residual codes; unclassified (20 sources) Edema; Translations: [Edema, unspecified] Onset: 03-23-2019 03-23-2019 Episodic Residual codes; unclassified (1 source) Insomnia, unspecified; Translations: [Insomnia, unspecified type] Onset: 03-19-2016 Episodic Results Test Name Value Interpretation Reference Range Facility [facility] 05-18-2025 [facility] Office Visit ([facility]WS ) KAHLILCHLOE Dillon ([id number]) 1950 F Date Time Provider Department 05/18/25 2:00 PM MYLA MCADAMS During your visit today, we recorded the following information about you: Pulse Respiration Blood pressure 62/minute 16/minute 118/68 Myla Mcadams APRN.GLASS CALIBRATOR 05/18/2025 5:32 PM Addendum This is a [...] Chronic chest pain attributed to fibromyalgia by tobacco curer 1-2 months ago. - Pain worsened significantly [...] Insomnia 03/19/2016 Moderate persistent asthma without complication ([facility]) 07/11/2015 07/07/15 Methacholine Inhalation Challenge: 35% drop FEV1 at 2.5 mg/mL. Morbid obesity (HCC) 04/04/2015 Patient has morbid obesity. Multiple gallstones 03/20/2022 Resolved with lap choly 05/07/2022 KAM (obstructive sleep apnea) 09/26/2015 DME: [facility] Other hyperlipidemia 03/23/2019 RLS (restless legs syndrome) [...] 2000 ALLERGIES Atorvastatin, Dust, Jardiance [Empagliflozin], Mold, [id number] Reductase Inhibitors, and Victoza [Liraglutide] MEDICATIONS Current [...] Take 1 tablet by mouth once daily. fluticasone-salmetero l (WIXELA INHUB) 250-50 mcg/dose inhaler Inhale 1 [...] as instructed four times a day as ne (more content not included)... [facility] CHLOE GUILLORY ([id number]) 1950 F Date Time Provider Department 05/17/25 MICHELLE SMITH During your visit today, we recorded the following information about you: Vicky Cee, JERI 05/17/2025 11:18 AM Signed Reason for Conversation Medication Problem, Fatigue, and chest pressure Background Pt saw Alaina Smith last Thursday 05/10. Pt was prescribed Topamax, an antibiotic and steroids at that visit. Topamax was for pt's Fibromyalgia and weight loss. Antibiotic and medrol taper pack were for acute sinusitis. 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 [...] it is no worse. Pt saw her tobacco curer on 04/01 for the chest discomfort she [...] do that. Instructed her to call her tobacco curer's office to notify him of this worsened [...] times worse than before. Pt saw her tobacco curer in [facility] a couple mons ago for [...] RISK FACTORS: asthma 9. CAUSE: pt states tobacco curer told her that it is probably her [...] : n/a Negative: [1] MODERATE weakness (i.e., (more content not included)... Normal [facility] 05-10-2025 CN[facility] Office Visit ([facility] ) CHLOE GUILLORY ([id number]) 1950 F Date Time Provider Department 05/10/25 11:20 AM MICHELLE SMITH During your visit today, we recorded the following information about you: Pulse Blood pressure Weight 86/minute 108/66 100.7 kg Michelle Smith, 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 05/10/2025 11:59 AM Signed This is a [...] Recent cardiology evaluation noted good cardiac function; tobacco curer suspects fibromyalgia as the etiology of chest pain. Depression: - Chloe reports anhedonia and feelings of hopelessness since her 's long-term. - has COPD, limiting outdoor activities and [...] Insomnia 03/19/2016 Moderate persistent asthma without complication ([facility]) 07/11/2015 07/07/15 Methacholine Inhalation Challenge: 35% drop FEV1 at 2.5 mg/mL. Morbid obesity ([facility]) 04/04/2015 Patient has morbid obesity. Multiple gallstones 03/20/2022 Resolved with lap choly 05/07/2022 KAM (obstructive sleep apnea) 09/26/2015 DME: [employer] Other hyperlipidemia 03/23/2019 RLS (restless legs syndrome) 02/15/2019 Stable angina pectoris 06/26/2020 Type 2 diabetes mellitus with stage 3 chronic kidney disease, with long-term current use of insulin ([facility]) 04/04/2015 Dx: age 51. On metformin and [...] 2000 ALLERGIES Atorvastatin, Dust, Jardiance [Empagliflozin], Mold, Egpdjlh-Qks-Ymk Reductase Inhibitors, and Victoza [Liraglutide] MEDICATIONS Current [...] Take 1 tablet by mouth once daily. fluticasone-salmetero l (WIXELA INHUB) 250-50 mcg/dose inhaler Inhale 1 [...] 1 tablet by mouth daily at bedtime. (more content not included)... Normal [facility] XR LUMBAR 3V AP/LAT/L5-S1on 05-10-2025 XR LUMBAR 3V AP/LAT/L5-S1 * * *Final Report* * * DATE [...] facet hypertrophy. IMPRESSION: Degenerative changes as described. Advanced Practice Nurse Psychotherapist: PSCB Transcribe Date/Time: May 16 2025 6:29P Dictated by : MIGUELITO DUNBAR MD This examination was interpreted and the report reviewed and electronically signed by: MIGUELITO DUNBAR MD on May 16 2025 6:30PM EST [id number] N Normal [facility] ALBUMIN/CREATININE RATIO, UR INEon 04-29-2025 Albumin DL <= 20 mg/L (U) [Mass/Vol] 103.4 mg/L Normal [facility] Comment on above: Order Comment: Speci men Type: URINE SPECIMENOrdering Facility: [facility] Address: [address] [place] [address] Performed By: #### U ACR ####[facility] LABCLIA [id number] [place] [address] [place] Albumin/Creatinine (U) [Mass ratio] 25 mg/g Normal <30 [facility] Comment on above: Order Comment: Speci men Type: URINE SPECIMENOrdering Facility: [facility] Address: [address] [place] [address] Result Comment: Adul t Male and Female Nephrotic Criteria: <30 mg/g is considered normal to mildly increased 30-300 mg/g is considered moderately increased >300 mg/g is considered severely increased KDIGO. (2013). KDIGO 2012 Clinical Practice Guideline for the Evaluation and Management of Chronic Kidney Disease. Official Journal of the International Society of Nephrology, 3(1), 1-150. Performed By: #### U ACR ####[facility] LABIA [id number] [place] [address] [place] Creatinine (U) [Mass/Vol] 410.5 mg/dL High 20.0-300.0 [facility] Comment on above: Order Comment: Speci men Type: URINE SPECIMENOrdering Facility: [facility] Address: [address] [place] [address] Performed By: #### U ACR ####[facility] LABCLIA [id number] [place] [id number] [place] CBC panel Auto (Bld)on 04-29 Erythrocyte distribution width (RBC) [Ratio] 13.5 % Normal 11.5-15.0 [facility] Comment on above: Order Comment: Speci men Type: BLOOD SPECIMENOrdering Facility: [facility] Address: [address] [place] [address] Performed By: #### 5 8410-2 ####[facility] RAIMUNDOWNCLIA [id number] [place] [address] [place] Hematocrit (Bld) [Volume fraction] 34.3 % Low 36.0-46.0 [facility] Comment on above: Order Comment: Speci men Type: BLOOD SPECIMENOrdering Facility: [facility] Address: [address] [place] [address] Performed By: #### 5 8410-2 ####[facility] ASIARIDGEFIELDMARKLIA [id number] [place] [address] [place] Hemoglobin (Bld) [Mass/Vol] 11.1 g/dL Low 11.5-15.5 [facility] Comment on above: Order Comment: Speci men Type: BLOOD SPECIMENOrdering Facility: [facility] Address: [address] [place] [address] Performed By: #### 5 8410-2 ####[facility]ALBANIAA [id number] [place] [address] [place] MCH (RBC) [Entitic mass] 28.5 pg Normal 26.0-34.0 [facility] Comment on above: Order Comment: Speci men Type: BLOOD SPECIMENOrdering Facility: [facility] Address: [address] [place] [address] Performed By: #### 5 8410-2 ####[facility] NORTHMARKLIA [id number] [place] [address] [place] MCHC (RBC) [Mass/Vol] 32.4 g/dL Normal 30.5-36.0 [facility] Comment on above: Order Comment: Speci men Type: BLOOD SPECIMENOrdering Facility: [facility] Address: [address] [place] [address] Performed By: #### 5 8410-2 ####[facility] NORTHNCLIA [id number] [place] [address] [place] MCV (RBC) [Entitic vol] 87.9 fL Normal 80.0-100.0 [facility] Comment on above: Order Comment: Speci men Type: BLOOD SPECIMENOrdering Facility: [facility] Address: [address] [place] [address] Performed By: #### 5 8410-2 ####[facility]THNCYOHANA [id number] [place] [address] [place] Nucleated RBC (Bld) [#/Vol] 10*3/uL Normal <0.01 [facility] Comment on above: Order Comment: Speci men Type: BLOOD SPECIMENOrdering Facility: [facility] Address: [address] [place] [address] Performed By: #### 5 8410-2 ####[facility] NORTHNCA [id number] [place] [address] [place] Platelet mean volume (Bld) [Entitic vol] 9.3 fL Normal 9.0-12.7 [facility] Comment on above: Order Comment: Speci men Type: BLOOD SPECIMENOrdering Facility: [facility] Address: [address] [place] [address] Performed By: #### 5 8410-2 ####[facility] NORTHNCLIA [id number] [place] [address] [place] Platelets (Bld) [#/Vol] 320 10*3/uL Normal 150-400 [facility] Comment on above: Order Comment: Speci men Type: BLOOD SPECIMENOrdering Facility: [facility] Address: [address] [place] [address] Performed By: #### 5 8410-2 ####[facility] NORTHNCLIA [id number] [place] [address] [place] RBC (Bld) [#/Vol] 3.90 10*6/uL Normal 3.90-5.20 [facility] Comment on above: Order Comment: Speci men Type: BLOOD SPECIMENOrdering Facility: [facility] Address: [address] [place] [address] Performed By: #### 5 8410-2 ####[facility] GORDAWNCLIA [id number] [place] [address] [place] WBC (Bld) [#/Vol] 6.87 10*3/uL Normal 3.70-11.00 [facility] Comment on above: Order Comment: Speci men Type: BLOOD SPECIMENOrdering Facility: [facility] Address: [address] [place] [address] Performed By: #### 5 8410-2 ####[facility] PUN[facility] GORDAWNCLIA [id number] [place] [address] [place] Comprehensive metabolic 2000 panelon 04-29-2025 Albumin [Mass/Vol] 4.0 g/dL Normal 3.9-4.9 [facility] Comment on above: Order Comment: Speci men Type: BLOOD SPECIMENOrdering Facility: [facility] Address: [address] [place] [address] Performed By: #### 2 4323-8 ####[facility]THNCLIA [id number] [place] [address] [place] ALP [Catalytic activity/Vol] 51 U/L Normal 34-123 [facility] Comment on above: Order Comment: Speci men Type: BLOOD SPECIMENOrdering Facility: [facility] Address: [address] [place] [address] Performed By: #### 2 4323-8 ####[facility]THNCLIA [id number] [place] [address] [place] ALT [Catalytic activity/Vol] 12 U/L Normal 7-38 [facility] Comment on above: Order Comment: Speci men Type: BLOOD SPECIMENOrdering Facility: [facility] Address: [address] [place] [address] Performed By: #### 2 4323-8 ####[facility] RACHEL MILLTOWNCLIA [id number] [place] [address] [place] Anion gap [Moles/Vol] 12 mmol/L Normal 8-15 [facility] Comment on above: Order Comment: Speci men Type: BLOOD SPECIMENOrdering Facility: [facility] Address: [address] [place] [address] Performed By: #### 2 4323-8 ####[facility] MILLTOWNCLIA [id number] [place] [address] [place] AST [Catalytic activity/Vol] 14 U/L Normal 13-35 [facility] Comment on above: Order Comment: Speci men Type: BLOOD SPECIMENOrdering Facility: [facility] Address: [address] [place] [address] Performed By: #### 2 4323-8 ####[facility] P[facility] GORDAWNCLIA [id number] [place] [address] [place] Bilirubin [Mass/Vol] 0.2 mg/dL Normal 0.2-1.3 [facility] Comment on above: Order Comment: Speci men Type: BLOOD SPECIMENOrdering Facility: [facility] Address: [address] [place] [address] Performed By: #### 2 4323-8 ####[facility] MILLTOWNCLIA [id number] [place] [address] [place] Calcium [Mass/Vol] 9.5 mg/dL Normal 8.5-10.2 [facility] Comment on above: Order Comment: Speci men Type: BLOOD SPECIMENOrdering Facility: [facility] Address: [address] [place] [address] Performed By: #### 2 4323-8 ####[facility] MILLTOWNCLIA [id number] [place] [address] [place] Chloride [Moles/Vol] 104 mmol/L Normal 98-107 [facility] Comment on above: Order Comment: Speci men Type: BLOOD SPECIMENOrdering Facility: [facility] Address: [address] [place] [address] Performed By: #### 2 4323-8 ####[facility]THNCLI [id number] [place] [address] [place] CO2 [Moles/Vol] 24 mmol/L Normal 22-30 [facility] Comment on above: Order Comment: Speci men Type: BLOOD SPECIMENOrdering Facility: [facility] Address: [address] [place] [address] Performed By: #### 2 4323-8 ####[facility]THNCLI [id number] [place] [address] [place] Creatinine [Mass/Vol] 1.14 mg/dL High 0.58-0.96 [facility] Comment on above: Order Comment: Speci men Type: BLOOD SPECIMENOrdering Facility: [facility] Address: [address] [place] [address] Performed By: #### 2 4323-8 ####[facility]THNCLIA [id number] [place] [address] [place] eGFRcr SerPlBld CKD-EPI 2020 51 mL/min/1.73m??? Low >=60 [facility] Comment on above: Order Comment: Speci men Type: BLOOD SPECIMENOrdering Facility: [facility] Address: [address] [place] [address] Result Comment: Judy mated Glomerular Filtration Rate (eGFR) is calculated using the 2020 CKD-EPI creatinine equation. This equation utilizes serum creatinine, sex, and age as parameters. The creatinine assay has traceable calibration to isotope dilution-mass spectrometry. Refer to KDIGO guidelines for clinical interpretation. In patients with unstable renal function, e.g. those with acute kidney injury, the eGFR may not accurately reflect actual GFR. Performed By: #### 2 4323-8 ####[facility] P[facility] GORDAWNCA [id number] [place] [address] [place] Glucose [Mass/Vol] 119 mg/dL High 74-99 [facility] Comment on above: Order Comment: Speci men Type: BLOOD SPECIMENOrdering Facility: [facility] Address: [address] [place] [address] Result Comment: The [place] Diabetes Association (ADA) provides guidance for cutoff [...] Standards of Medical Care in Diabetes 2016, [place] [employer] Association. Diabetes Care. 2016.39(Suppl 1). Performed By: #### 2 4323-8 ####[facility]THNCA [id number] [place] [address] [place] Potassium [Moles/Vol] 4.7 mmol/L Normal 3.7-5.1 [facility] Comment on above: Order Comment: Speci men Type: BLOOD SPECIMENOrdering Facility: [facility] Address: [address] [place] [address] Performed By: #### 2 4323-8 ####[facility] NORTHNCLIA [id number] [place] [address] [place] Protein [Mass/Vol] 6.6 g/dL Normal 6.3-8.0 [facility] Comment on above: Order Comment: Speci men Type: BLOOD SPECIMENOrdering Facility: [facility] Address: [address] [place] [address] Performed By: #### 2 4323-8 ####[facility] [id number] [place] [address] [place] Sodium [Moles/Vol] 140 mmol/L Normal 136-144 [facility] Comment on above: Order Comment: Speci men Type: BLOOD SPECIMENOrdering Facility: [facility] Address: [address] [place] [address] Performed By: #### 2 4323-8 ####[facility] [id number] [place] [address] [place] Urea nitrogen [Mass/Vol] 22 mg/dL High 7-21 [facility] Comment on above: Order Comment: Speci men Type: BLOOD SPECIMENOrdering Facility: [facility] Address: [address] [place] [address] Performed By: #### 2 4323-8 ####[facility] [id number] [place] [address] [place] HbA1c (Bld)on 04-29-2025 Average glucose Estimated from glycated hemoglobin (Bld) [Mass/Vol] 140 mg/dL Normal [facility] Comment on above: Order Comment: Speci men Type: BLOOD SPECIMENOrdering Facility: [facility] Address: [address] [place] [address] Result Comment: eAG: (Estimated average glucose) is a calculated value from HgbA1c and is underwriting account representative of the average blood glucose level in the last 2-3 month period. Performed By: #### 5 5454-3 ####[facility] LABCLIA [id number] [place] [address] [place] HbA1c (Bld) [Mass fraction] 6.5 % High 4.3-5.6 [facility] Comment on above: Order Comment: Speci men Type: BLOOD SPECIMENOrdering Facility: [facility] Address: [address] [place] [address] Result Comment: Amer ican Diabetes Association guidelines indicate that patients with HgbA1c in the range 5.7-6.4% are at increased risk for development of diabetes, and intervention by lifestyle modification may be beneficial. HgbA1c greater or equal to 6.5% is considered diagnostic of diabetes. Performed By: #### 5 5454-3 ####[facility] LABCLIA [id number] [facility] [address] [place] [address] [place] Lipid 1996 panelon 5 Cholesterol [Mass/Vol] 189 mg/dL Normal <200 [facility] Comment on above: Order Comment: Sergey ha Type: BLOOD SPECIMENOrdering Facility: [facility] Address: [address] [place] [address] Result Comment: <200 mg/dL, Desirable 200-239 mg/dL, Borderline high >239 mg/dL, High Performed By: #### 2 4331-1 ####[facility] LABCLIA [id number] [facility] [address] [place] [address] [facility] [id number] [address] [place]#### 3016-3 ####[facility] LABCLIA [id number] [facility] [address] [place] [address] [place] [facility] Cholesterol in HDL [Mass/Vol] 53 mg/dL Normal >39 [facility] Comment on above: Order Comment: Sergey ha Type: BLOOD SPECIMENOrdering Facility: [facility] Address: [address] [place] [address] Result Comment: 40-5 9 mg/dL, Acceptable >59 mg/dL, High: Negative risk factor for coronary heart disease <40 mg/dL, Low: Positive risk factor for coronary heart disease Performed By: #### 2 4331-1 ####[facility] LABCLIA [id number] [facility] [address] [place] [address] [place] [facility] [id number] [address]#### 3016-3 ####[facility] [id number] [address] Cholesterol in LDL [Mass/Vol] 112 mg/dL High <100 [facility] Comment on above: Order Comment: Speci men Type: BLOOD SPECIMENOrdering Facility: [facility] Address: [address] [place] [address] Result Comment: <100 mg/dL, Optimal 100-129 mg/dL, Near optimal/above optimal 130-159 mg/dL, Borderline high 160-189 mg/dL, High >189 mg/dL, Very high Secondary prevention optimal LDL Cholesterol levels are recommended to be <70 mg/dL LDL cholesterol is calculated using the Hsu-NIH equation. Performed By: #### 2 4331-1 ####[facility] [id number] [address] OF [facility] [id number] [address]#### 3016-3 ####[facility] [id number] [address] Cholesterol in LDL/Cholesterol in HDL [Mass ratio] 2.11 {ratio} Normal <2.54 [facility] Comment on above: Order Comment: Speci men Type: BLOOD SPECIMENOrdering Facility: [facility] Address: [address] [place] [address] Result Comment: Juanito ventura: 1. National Cholesterol Education Program ATP III Guideline At-A-Glance Quick Desk Reference: National Heart, Lung, and Blood [place]. National Institutes of Health. 2001: NIH Publication No. 01-3305. 2. An International Atherosclerosis Society position paper: global recommendations for the management of dyslipidemia: executive summary, Atherosclerosis. 2014: 232(2):410-413. Performed By: #### 2 4331-1 ####[facility] LABCLIA [id number] [facility] [address] [place] [address] [place] [facility] [id number] [address] [place]#### 3016-3 ####[facility] LABCLIA [id number] [facility] [address] [place] [address] [place] Cholesterol in VLDL [Mass/Vol] 23 mg/dL Normal <30 [facility] Comment on above: Order Comment: Speci men Type: BLOOD SPECIMENOrdering Facility: [facility] Address: [address] [place] [address] Performed By: #### 2 4331-1 ####[facility] LABCLIA [id number] [address] [address] [place] [facility] [id number] [place] [address] [place]#### 3016-3 ####[facility] LABCLIA [id number] [place] [id number] [place] Cholesterol non HDL [Mass/Vol] 136 mg/dL High <130 [facility] Comment on above: Order Comment: Speci men Type: BLOOD SPECIMENOrdering Facility: [facility] Address: [address] [place] [address] Result Comment: <130 mg/dL, Optimal 130-159 mg/dL, Near optimal/above optimal 160-189 mg/dL, Borderline high 190-219 mg/dL, High >219 mg/dL, Very high Secondary prevention optimal non HDL Cholesterol levels are recommended to be <100 mg/dL Performed By: #### 2 4331-1 ####[facility] LABCLIA [id number] [facility] [address] [place] [address] [facility] [id number] [place] [address] [place]#### 3016-3 ####[facility] LABCLIA [id number] [place] [address] [place] Cholesterol.total/Alexia sterol in HDL [Mass ratio] 3.57 {ratio} Normal <5.10 [facility] Comment on above: Order Comment: Speci men Type: BLOOD SPECIMENOrdering Facility: [facility] Address: [address] [place] [address] Performed By: #### 2 4331-1 ####[facility] LABCLIA [id number] [address] STATES OF [facility] [id number] [place] [address] [place]#### 3016-3 ####[facility] LABCLIA [id number] [place] [address] [place] FASTING TIME 12 hrs Normal [facility] Comment on above: Order Comment: Speci men Type: BLOOD SPECIMENOrdering Facility: [facility] Address: [address] [place] [address] Performed By: #### 2 4331-1 ####[facility] LABCLIA [id number] [address] STATES OF [facility] [id number] [address] [place]#### 3016-3 ####[facility] LABCLIA [id number] [place] [id number] [place] Triglyceride [Mass/Vol] 135 mg/dL Normal <150 [facility] Comment on above: Order Comment: Speci men Type: BLOOD SPECIMENOrdering Facility: [facility] Address: [address] [place], [place] [address] Result Comment: <150 mg/dL, Normal 150-199 mg/dL, Borderline high 200-499 mg/dL, High >499 mg/dL, Very high Performed By: #### 2 4331-1 ####[facility] LABCLIA [id number] [address] [id number] [address] [place]#### 3016-3 ####[facility] LABIA [id number] [address] OF [place] TSH SerPl-aCncon 04-29-2025 TSH Qn 3.590 m[IU]/L Normal 0.270-4.200 [facility] Comment on above: Order Comment: Speci men Type: BLOOD SPECIMENOrdering Facility: [facility] Address: [address] [place] [address] Performed By: #### 2 4331-1 ####[facility] LABIA [id number] [address] [id number] [place] [address]#### 3016-3 ####[facility] [id number] [address] CNOVon 04-18-2025 CNOV Office Visit (SHANTI ) CHLOE GUILLORY ([id number]) 1950 F Date Time Provider Department 04/18/25 1:30 PM VETOVITZ, KRISTIN ORTHWS During your visit today, we recorded the following information about you: Hyun MataSUNNY 04/18/2025 1:59 PM Signed AMB ROOMING INTAKE FLOWSHEET DATA Pain Pain Level: 8 Pain Location: (bilateral shoulder) Description: Aching, Dull Duration Amount of Time: (ongoing) Frequency: Continuous Intervention/Comfort measure: Other: See comment (none) Patient would like cortisone injection today into both shoulders. FBS 120's and under. Kristin Byrne PA-C 04/18/2025 1:59 PM Signed Kristin Byrne PA-C Department of Orthopaedics Orthopaedics [address] [facility] [address] Dept: [phone] Dept April 18, 2025 CHIEF COMPLAINT: Follow [...] hyperglycemia, with long-term current use of insulin ([facility]) PLAN: Patient certainly has left shoulder glenohumeral [...] as to contrast therapies and/or to take analgesics/anti-infla mmatories as needed and all contraindications were reviewed. [...] these instructions. Informed Consent Consent Obtained: Verbal [place] Protocol A moment to CARE was completed. SIGN IN Sign in communication not applicable due to emergent procedure. Personnel directly involved with the procedure wore the appropriate PPE. Special Equipment: N/A Patient/Surrogate Stated/Verified: Patient name, Date of , Relevant allergies and Intended procedure TIME OUT Relevant lab (more content not included)... Normal [facility] Large Joint Arthro/Inj: L crane bacromial bursaon 04-18-2025 Kristin Byrne PA-C 04/18/2025 1:59 PM Large Joint Arthro/Inj: L subacromial bursa 04/18/2025 [...] these instructions. Informed Consent Consent Obtained: Verbal [place] Protocol A moment to CARE was completed. [...] the bedside nurse for hospitalized patients) applicable. [facility] ECHOon 04-12-2025 Echocardiography Echocardiography Report: Transthoracic Echo [facility] Date of service: 04/12/2025 1:43:08 PM REPRESENTATIVE [employer] Ordering physician: ALVIN SCHMITZ Exam indication: Shortness of Breath Technologist: Lisseth Olmedo [facility] Interpreting physician: Ritika Apodaca MD PATIENT: [...] - Exam was compared with the prior CC echocardiographic exam performed on 07/21/2023, no significant change. * * * Final * * * [facility] Medical Image : [id number] amicsSISUID Normal [facility] CNOVon 04-01-2025 CNOV Office Visit (CARDMM ) CHLOE GUILLORY ([id number]) 1950 F Date Time Provider Department 04/01/25 2:00 PM ALVIN SCHMITZ CARDARNALDO During your visit today, we recorded the following information about you: Pulse Blood pressure Weight Height 68/minute 112/64 103.2 kg 1.549 m Alvin Schmitz MD 04/01/2025 2:24 PM Signed Salvador Ramirez Department of Cardiovascular Medicine Heart, Vascular and Thoracic [place] SECTION OF REGIONAL CARDIOLOGY April 01, 2025 OUTPATIENT VISIT TYPE Established CHIEF COMPLAINT: Patient is following-up for HTN, dyslipidemia, stable angina, obstructive coronary disease. HISTORY OF PRESENT ILLNESS: Ms. Guillory is 74 year old female with a history of CAD, T2DM, hypertension, hypercholesterolemia, and KAM, presenting for evaluation of chest pain and dyspnea. S/P Diagnostic Cardiac Cath 2020 with no stent. Today, Patient has symptoms [...] a cardiac catheterization 5 years ago at [facility], which was normal. An ECG performed today [...] 05/07/2022 KAM (obstructive sleep apnea) 09/26/2015 DME: [facility] Other hyperlipidemia 03/23/2019 RLS (restless legs syndrome) [...] Comments Became suicidal Mold Shortness of Breath Knelzxf-Rlr-Pcj Red* Myalgia Victoza [Liraglutid* Other: See Comments Thinks she had thyroid issues from it. CURRENT MEDICATIONS: alogliptin (NESINA) 25 mg tab Take 25 mg by mouth once daily. magnesium oxide (MAG-OX) 400 mg (241.3 mg magnesium) tablet Take 1 tablet by mouth two times a day. insulin glargine (LANTUS U-100 INSULIN) 100 unit/mL injection Inject 40 Units subcutaneously daily at bedtime. metFORMIN (GLUCOPHAGE) (more content not included)... Normal [facility] JKH42rx 04-01-2025 ECG01 Ventricular Rate : 6 8 BPM Atrial Rate : 68 BPM P-R Interval : 174 ms QRS Duration : 94 ms Q-T Interval : 388 ms QTC Calculation(Bazett) : 412 ms Calculated P Hamlet : 35 degrees Calculated R Hamlet : 46 degrees Calculated T Hamlet : 38 degrees NORMAL SINUS RHYTHM NORMAL ECG Confirmed by MD SCHMITZ QARAB ([id number]), film or videotape editor DIXIE GENTILE ([id number]) on 04/04/2025 5:04:34 PM NAME : CHLOE GUILLORY PID : [id number] : 1950 Gender : Female Race : ORD : Procedure Date : Apr 01 2025 13:55:32 Edit Date : Apr 04 2025 17:04:36 Diagnosis: NORMAL SINUS RHYTHM NORMAL ECG Confirmed by MD SCHMITZ QARAB ([id number]), film or videotape editor DIXIE GENTILE ([id number]) on 04/04/2025 5:04:34 PM Test Reason : [facility] Over[facility] By : MD SCHMITZ QARAB Edited By : DIXIE GENTILE Referred By : MICHELLE SMITH Acquired by : Kendall BLOCK [facility] Magnesium [facility]ell 03-14 Magnesium [Mass/Vol] 1.7 mg/dL Normal 1.7-2.3 [facility] Comment on above: Order Comment: Speci men Type: BLOOD SPECIMENOrdering Facility: [facility] Address: [address] [place] [address] Performed By: #### 1 9123-9, K1 ####[facility] [id number] [address] OF [facility] POTASSIUMon 03-14-2025 Potassium [Moles/Vol] 4.5 mmol/L Normal 3.7-5.1 [facility] Comment on above: Order Comment: Speci men Type: BLOOD SPECIMENOrdering Facility: [facility] Address: [address] [place] [address] Performed By: #### 1 9123-9, K1 ####[facility] LABIA [id number] [place] [id number] [place] CNPNon 02-14-2025 CNPN Telephone (FAMPWS) CHLOE GUILLORY ([id number]) 1950 F Date Time Provider Department 02/14/25 CHICHO CARTERLUIS During your visit today, we recorded the following information about you: Chicho Carter MD 02/14/2025 12:29 PM Signed Labs are [...] MOLD 03/19/2016 12 - Shortness of Breath LDJYEHB-YKW-QKN REDUCTASE INHIBIT*04/04/2015 17 - Myalgia VICTOZA (LIRAGLUTIDE) 01/27/2018 14 - Other: See Comments Comments: Thinks she had thyroid issues from it. Date Reviewed: 02/11/2025 Reviewed by: Bel Chowdhury MA - Fully Assessed Reason for Visit: Results [95] Primary Visit Diagnosis:Hypomagnese ruddy [E83.42] Other Visit Diagnosis:Hyperkalemi a [E87.5] Order(s):POTASSIUM [SQK1] Order #: [id number] FUTURE MAGNESIUM [SQMG1] Order #: [id number] FUTURE Prescriptions as of 02/16/2025 - magnesium [...] 1 tablet by mouth once daily. - fluticasone-salmetero l (WIXELA INHUB) 250-50 mcg/dose inhaler Inhale 1 [...] [E66.01] 04/04/2015 03/23/2019 Moderate persistent asthma without complication*07/11/20 15 KAM (obstructive sleep apnea) CPAP intolerant [*09/26/2015 [...] shoulders [M25.511, G89.29*07/29/2022 Encounter Status:Closed by Ann HILLS on 02/16/25 [facility] CNOVon 02-11-2025 CN Office Visit (FAMPWS ) KAHLILCHLOE ([id number]) 1950 F Date Time Provider Department 02/11/25 11:40 AM MICHELLE SMITH FAMPWS During your visit today, we recorded the following information about you: Pulse Blood pressure Weight 65/minute 122/64 103.4 kg Michelle Smith APRN.GLASS CALIBRATOR 02/11/2025 12:20 PM Signed This is a 74 year old female who presents today with: Patient presents with: Diabetes: 3 month exam HISTORY OF PRESENT ILLNESS: Chloe Guillory is a 74 year old female. Patient presents with: Diabetes: 3 month exam hCloe Guillory is a 74-year-old female with a history of diabetes mellitus, presenting for evaluation of hyperglycemia, headaches, and dizziness. Hyperglycemia: - Chloe reports elevated blood glucose levels, with fasting readings around 200 mg/dL. - Unable to afford Alyse due to cost. - Currently taking Lantus [...] Insomnia 03/19/2016 Moderate persistent asthma without complication ([facility]) 07/11/2015 07/07/15 Methacholine Inhalation Challenge: 35% drop FEV1 at 2.5 mg/mL. Morbid obesity ([facility]) 04/04/2015 Patient has morbid obesity. Multiple gallstones 03/20/2022 Resolved with lap choly 05/07/2022 KAM (obstructive sleep apnea) 09/26/2015 DME: [facility] Other hyperlipidemia 03/23/2019 RLS (restless legs syndrome) 02/15/2019 Stable angina pectoris 06/26/2020 Type 2 diabetes mellitus with stage 3 chronic kidney disease, with long-term current use of insulin ([facility]) 04/04/2015 Dx: age 51. On metformin and [...] 2000 ALLERGIES Atorvastatin, Dust, Jardiance [Empagliflozin], Mold, Bxeshao-Kgt-Tkm Reductase Inhibitors, and Victoza [Liraglutide] MEDICATIONS Current [...] Take 1 tablet by mouth once daily. fluticasone-salmetero l (WIXELA INHUB) 250-50 mcg/dose inhaler Inhale 1 [...] Inject 2.5 mg subcutaneously one time a week (more content not included)... [facility] CHLO[facility] GUILLORY ([id number]) 1950 F Date Time Provider Department 02/11/25 MICHELLE SMITH During your visit today, we recorded the following information about you: Danii Amanda LPN 02/11/2025 4:14 PM Signed [facility] Melba sends fax that alogliptin is not covered by insurance. Asking for change to januvia 100 mg or tradjenta 5 mg? Or would you like prior auth attempted? Michelle Smith, BOBBIN STRIPPER.GLASS CALIBRATOR 02/11/2025 4:24 PM Signed Januvia [address] of alogliptin. Allergies As of Date: 02/11/2025 Noted Allergy Reaction ATORVASTATIN 11/08/2024 17 - Myalgia Comments: Craps in all muscles DUST 09/26/2015 3 - Cough JARDIANCE (EMPAGLIFLOZIN) 01/27/2018 14 - Other: See Comments Comments: Became suicidal MOLD 03/19/2016 12 - Shortness of Breath VHEZTPG-OXJ-PCM REDUCTASE INHIBIT*04/04/2015 17 - Myalgia VICTOZA (LIRAGLUTIDE) 01/27/2018 14 - Other: See Comments Comments: Thinks she had thyroid issues from it. Date Reviewed: 02/11/2025 Reviewed by: Bel Chowdhury MA - Fully Assessed Reason for Visit: Insurance Authorization [[id number]] Primary Visit Diagnosis:Controlled type 2 diabetes mellitus without complication, with long-term current use of insulin (HCC) [E11.9, Z79.4] Order(s):SITagliptin phosphate (JANUVIA) 100 mg [...] 1 tablet by mouth once daily. - fluticasone-salmetero l (WIXELA INHUB) 250-50 mcg/dose inhaler Inhale 1 [...] [E66.01] 04/04/2015 03/23/2019 Moderate persistent asthma without complication*07/11/20 15 KAM (obstructive sleep apnea) CPAP intolerant [*09/26/2015 [...] by mouth once daily. Encounter Status:Closed by BEL CHOWDHURY on 02/11/25 Normal [facility] Comprehensive metabolic 2000 panelon 02-11-2025 Albumin [Mass/Vol] 4.1 g/dL Normal 3.9-4.9 [facility] Comment on above: Order Comment: Speci men Type: BLOOD SPECIMEN Ordering Facility: [facility] Address: [address] [place], [place] [address] Performed By: #### 1 9123-9, 2132-05, 35021-5, 18353-0 #### [facility] CLIA [id number] [address] [place] [address] [place] ALP [Catalytic activity/Vol] 60 U/L Normal 34-123 [facility] Comment on above: Order Comment: Speci men Type: BLOOD SPECIMEN Ordering Facility: [facility] Address: [address] [place] [address] Performed By: #### 1 9123-9, 2132-05, 26164-0, 68380-2 #### [facility] CLIA [id number] [address] [place] [address] [place] ALT [Catalytic activity/Vol] 17 U/L Normal 7-38 [facility] Comment on above: Order Comment: Speci men Type: BLOOD SPECIMEN Ordering Facility: [facility] Address: [address] [place] [address] Performed By: #### 1 9123-9, 2131-9, 00334-3, 49541-1 #### [facility] CLIA [id number] [address] [place] [address] [place] Anion gap [Moles/Vol] 12 mmol/L Normal 8-15 [facility] Comment on above: Order Comment: Speci men Type: BLOOD SPECIMEN Ordering Facility: [facility] Address: [address] [place] [address] Performed By: #### 1 9123-9, 9, 77666-8, 79461-2 #### [facility] CLIA [id number] [address] [place] [address] [place] AST [Catalytic activity/Vol] 22 U/L Normal 13-35 [facility] Comment on above: Order Comment: Speci men Type: BLOOD SPECIMEN Ordering Facility: [facility] Address: [address] [place] [address] Performed By: #### 1 9123-9, 9, 03410-9, 99781-1 #### [facility] CLIA [id number] [address] [place] [address] [place] Bilirubin [Mass/Vol] 0.2 mg/dL Normal 0.2-1.3 [facility] Comment on above: Order Comment: Speci men Type: BLOOD SPECIMEN Ordering Facility: [facility] Address: [address] [place] [address] Performed By: #### 1 9123-9, 9, 86901-9, 07799-9 #### [facility] CLIA [id number] [address] [place] [address] [place] Calcium [Mass/Vol] 9.6 mg/dL Normal 8.5-10.2 [facility] Comment on above: Order Comment: Speci men Type: BLOOD SPECIMEN Ordering Facility: [facility] Address: [address] [place] [address] Performed By: #### 1 9123-9, 9, 24867-5, 42697-6 #### [facility] CLIA [id number] [address] [place] [address] [place] Chloride [Moles/Vol] 103 mmol/L Normal 98-107 [facility] Comment on above: Order Comment: Speci men Type: BLOOD SPECIMEN Ordering Facility: [facility] Address: [address] [place] [address] Performed By: #### 1 9123-9, 2132-05, , 88143-6 #### [facility] CLIA [id number] [address] [place] [address] [place] CO2 [Moles/Vol] 24 mmol/L Normal 22-30 [facility] Comment on above: Order Comment: Speci men Type: BLOOD SPECIMEN Ordering Facility: [facility] Address: [address] [place] [address] Performed By: #### 1 9123-9, 9, , 45097-0 #### [facility] CLIA [id number] [address] [place] [address] [place] Creatinine [Mass/Vol] 1.06 mg/dL High 0.58-0.96 [facility] Comment on above: Order Comment: Speci men Type: BLOOD SPECIMEN Ordering Facility: [facility] Address: [address] [place] [address] Performed By: #### 1 9123-9, 9, 27364-2, 81841-8 #### [facility] CLIA [id number] [address] [place] [address] [place] Creatinine and Glomerular filtration rate.predicted panel (S/P/Bld) 56 mL/min/1.73m??? Low >=60 [facility] Comment on above: Order Comment: Sergey ha Type: BLOOD SPECIMEN Ordering Facility: [facility] Address: [address] [place] [address] Result Comment: Judy mated Glomerular Filtration Rate (eGFR) is calculated using the 2020 CKD-EPI creatinine equation. This equation utilizes serum creatinine, sex, and age as parameters. The creatinine assay has traceable calibration to isotope dilution-mass spectrometry. Refer to KDIGO guidelines for clinical interpretation. In patients with unstable renal function, e.g. those with acute kidney injury, the eGFR may not accurately reflect actual GFR. Performed By: #### 1 23-9, 2132-05, , 72710-6 #### [facility] CLIA [id number] [address] [place] [address] [place] Glucose [Mass/Vol] 169 mg/dL High 74-99 [facility] Comment on above: Order Comment: Sergey ha Type: BLOOD SPECIMEN Ordering Facility: [facility] Address: [address] [place] [address] Result Comment: The [place] Diabetes Association (ADA) provides guidance for cutoff [...] Standards of Medical Care in Diabetes 2016, [place] [employer] Association. Diabetes Care. 2016.39(Suppl 1). Performed By: #### 1 9123-9, 9, 65982-5, 60912-6 #### [facility] CLIA [id number] [address] [place], [place] [address] [place] Potassium [Moles/Vol] 5.2 mmol/L High 3.7-5.1 [facility] Comment on above: Order Comment: Speci men Type: BLOOD SPECIMEN Ordering Facility: [facility] Address: [address] [place] [address] Performed By: #### 1 23-9, 9, 54926-9, 49552-2 #### [facility] CLIA [id number] [address] [place] [address] [place] Protein [Mass/Vol] 7.0 g/dL Normal 6.3-8.0 [facility] Comment on above: Order Comment: Speci men Type: BLOOD SPECIMEN Ordering Facility: [facility] Address: [address] [place] [address] Performed By: #### 1 9123-9, 2132-05, 21365-1, 47093-1 #### [facility] CLIA [id number] [address] [place] [address] [place] Sodium [Moles/Vol] 139 mmol/L Normal 136-144 [facility] Comment on above: Order Comment: Speci men Type: BLOOD SPECIMEN Ordering Facility: [facility] Address: [address] [place] [address] Performed By: #### 1 9123-9, 2132-05, 22435-8, 04040-9 #### [facility] CLIA [id number] [address] [place], [place] [address] [place] Urea nitrogen [Mass/Vol] 28 mg/dL High 7-21 [facility] Comment on above: Order Comment: Speci men Type: BLOOD SPECIMEN Ordering Facility: [facility] Address: [address] [place] [address] Performed By: #### 1 9123-9, 9, 62945-2, 82423-6 #### [facility] CLIA [id number] [address] [place] [address] [place] HbA1c (Bld)on 02-11-2025 Average glucose Estimated from glycated hemoglobin (Bld) [Mass/Vol] 163 mg/dL Normal [facility] Comment on above: Order Comment: Sergey ha Type: BLOOD SPECIMENOrdering Facility: [facility] Address: [address] [place] [address] Result Comment: eAG: (Estimated average glucose) is a calculated value from HgbA1c and is underwriting account representative of the average blood glucose level in the last 2-3 month period. Performed By: #### 5 5454-3 ####[facility] LABCLIA [id number] [place] [address] [place] HbA1c (Bld) [Mass fraction] 7.3 % High 4.3-5.6 [facility] Comment on above: Order Comment: Sergey ha Type: BLOOD SPECIMENOrdering Facility: [facility] Address: [address] [place] [address] Result Comment: [place] Diabetes Association guidelines indicate that patients with HgbA1c in the range 5.7-6.4% are at increased risk for development of diabetes, and intervention by lifestyle modification may be beneficial. HgbA1c greater or equal to 6.5% is considered diagnostic of diabetes. Performed By: #### 5 5454-3 ####[facility] LABCLIA [id number] [place] [address] [place] Lipid 1996 panelon 5 Cholesterol [Mass/Vol] 193 mg/dL Normal <200 [facility] Comment on above: Order Comment: Sergey ha Type: BLOOD SPECIMEN Ordering Facility: [facility] Address: [address] [place] [address] Result Comment: <200 mg/dL, Desirable 200-239 mg/dL, Borderline high >239 mg/dL, High Performed By: #### 1 9123-9, 2132-9, 16213-8, 90080-7 #### [facility] CLIA [id number] [address] [place] [address] [place] Cholesterol in HDL [Mass/Vol] 53 mg/dL Normal >39 [facility] Comment on above: Order Comment: Sergey ha Type: BLOOD SPECIMEN Ordering Facility: [facility] Address: [address] [place] [address] Result Comment: 40-5 9 mg/dL, Acceptable >59 mg/dL, High: Negative risk factor for coronary heart disease <40 mg/dL, Low: Positive risk factor for coronary heart disease Performed By: #### 1 9123-9, 2132-05, , 41921-9 #### [facility] CLIA [id number] [address] [place] [address] [place] Cholesterol in LDL [Mass/Vol] 119 mg/dL High <100 [facility] Comment on above: Order Comment: Sergey ha Type: BLOOD SPECIMEN Ordering Facility: [facility] Address: [address] [place] [address] Result Comment: <100 mg/dL, Optimal 100-129 mg/dL, Near optimal/above optimal 130-159 mg/dL, Borderline high 160-189 mg/dL, High >189 mg/dL, Very high Secondary prevention optimal LDL Cholesterol levels are recommended to be <70 mg/dL LDL cholesterol is calculated using the Hsu-NIH equation. Performed By: #### 1 239, 2132-05, , 83536-0 #### [facility] CLIA [id number] [address] [place] [address] [place] Cholesterol in LDL/Cholesterol in HDL [Mass ratio] 2.25 {ratio} Normal <2.54 [facility] Comment on above: Order Comment: Sergey dilcia Type: BLOOD SPECIMEN Ordering Facility: [facility] Address: [address] [place] [address] Result Comment: Juanito ventura: 1. National Cholesterol Education Program ATP III Guideline At-A-Glance Quick Desk Reference: National Heart, Lung, and Blood [place]. National Institutes of Health. 2001: NIH Publication No. 01-3305. 2. An International Atherosclerosis Society position paper: global recommendations for the management of dyslipidemia: executive summary, Atherosclerosis. 2014: 232(2):410-413. Performed By: #### 1 23-9, 9, 12627-8, 97722-7 #### [facility] CLIA [id number] [address] [place] [address] [place] Cholesterol in VLDL [Mass/Vol] 20 mg/dL Normal <30 [facility] Comment on above: Order Comment: Speci men Type: BLOOD SPECIMEN Ordering Facility: [facility] Address: [address] [place] [address] Performed By: #### 1 23-9, 9, 89255-2, 68879-0 #### [facility] CLIA [id number] [address] [place] [address] [place] Cholesterol non HDL [Mass/Vol] 140 mg/dL High <130 [facility] Comment on above: Order Comment: Speci men Type: BLOOD SPECIMEN Ordering Facility: [facility] Address: [address] [place] [address] Result Comment: <130 mg/dL, Optimal 130-159 mg/dL, Near optimal/above optimal 160-189 mg/dL, Borderline high 190-219 mg/dL, High >219 mg/dL, Very high Secondary prevention optimal non HDL Cholesterol levels are recommended to be <100 mg/dL Performed By: #### 1 9122-9, 9, 79422-9, 80082-0 #### [facility] CLIA [id number] [address] [place] [address] [place] Cholesterol.total/Alexia sterol in HDL [Mass ratio] 3.64 {ratio} Normal <5.10 [facility] Comment on above: Order Comment: Speci men Type: BLOOD SPECIMEN Ordering Facility: [facility] Address: [address] [place] [address] Performed By: #### 1 23-9, 9, 46639-1, 81400-7 #### [facility] CLIA [id number] [address] [place], [place] [address] [place] FASTING TIME 12 hrs Normal [facility] Comment on above: Order Comment: Speci men Type: BLOOD SPECIMEN Ordering Facility: [facility] Address: [address] [place] [address] Performed By: #### 1 23-9, 2132-05, 54097-5, 87622-3 #### [facility] CLIA [id number] [address] [place] [address] [place] Triglyceride [Mass/Vol] 117 mg/dL Normal <150 [facility] Comment on above: Order Comment: Speci men Type: BLOOD SPECIMEN Ordering Facility: [facility] Address: [address] [place] [address] Result Comment: <150 mg/dL, Normal 150-199 mg/dL, Borderline high 200-499 mg/dL, High >499 mg/dL, Very high Performed By: #### 1 23-9, 2132-05, , 14049-0 #### [facility] CLIA [id number] [address] [place] [address] [place] Magnesium SerPl-mCncon 02-11 Magnesium [Mass/Vol] 1.4 mg/dL Low 1.7-2.3 [facility] Comment on above: Order Comment: Speci men Type: BLOOD SPECIMEN Ordering Facility: [facility] Address: [address] [place] [address] Performed By: #### 1 9123-9, 2132-05, , 58601-1 #### [facility] CLIA [id number] [address] [place] [address] [place] Vit B12 SerPl-mCncon 025 Cobalamin (Vitamin B12) [Mass/Vol] 334 pg/mL Normal 232-1245 [facility] Comment on above: Order Comment: Speci men Type: BLOOD SPECIMEN Ordering Facility: [facility] Address: [address] [place] [address] Performed By: #### 1 23-9, 2132-05, 30189-5, 75627-0 #### [facility] CLIA [id number] [address] [place] [address] [facility] CNOVon 02-07-2025 CNOV Office Visit (ORTHWS ) CHLOE GUILLORY ([id number]) 1950 F Date Time Provider Department 02/07/25 1:00 PM KRISTIN BYRNE During your visit today, we recorded the following information about you: Maggy Pizarro MA 02/07/2025 2:33 PM Signed Patient presents with: Left Shoulder - New, Pain Right Shoulder - Pain, New: Referred by Amy Smith [facility] [employer] Risk Screening Do you [...] PA-C Department of Orthopaedics Orthopa[facility] [address] [place] [address] Dept: [phone] Dept February 07, 2025 CHIEF COMPLAINT: New and Pain of the Left Shoulder and Pain and New of the Right Shoulder (Referred by Amy Smith) Bilateral Shoulder Pain: - Chronic bilateral shoulder [...] hyperglycemia, with long-term current use of insulin ([facility] [facility] N18.31 Stage 3a chronic kidney disease ([facility]) PLAN: 1. Bilateral shoulder pain, unspecified chronicity [...] hyperglycemia, with long-term current use of insulin ([facility]) (E11.65) - Hemoglobin A1c is 8.6%, indicating [...] as to contrast therapies and/or to take analgesics/anti-infla mmatories as needed and all contraindications were reviewed. [...] of about 145 degrees with passive external rotat (more content not included)... Normal [facility] CHLOE GUILLORY ([id number]) 1950 F Date Time Provider Department 01/12/25 [facility] During your visit today, we recorded the following information about you: Danii Amanda LPN 01/12/2025 11:39 AM Signed Alyse GUNN sends fax with comment below: Insurance pays for this twice per 365 days then PA is required. VELIA Reilly Uyen Clemens MA 01/12/2025 11:43 AM Signed [...] MOLD 03/19/2016 12 - Shortness of Breath IFPWGCL-KKE-BFD REDUCTASE INHIBIT*04/04/2015 17 - Myalgia VICTOZA (LIRAGLUTIDE) 01/27/2018 14 - Other: See Comments Comments: Thinks she had thyroid issues from it. Date Reviewed: 11/08/2024 Reviewed by: Bel Chowdhury MA - Fully Assessed Reason for Visit: [...] 1 tablet by mouth once daily. - fluticasone-salmetero l (WIXELA INHUB) 250-50 mcg/dose inhaler Inhale 1 [...] [E66.01] 04/04/2015 03/23/2019 Moderate persistent asthma without complication*07/11/20 15 KAM (obstructive sleep apnea) CPAP intolerant [*09/26/2015 [...] Encounter Status:Closed by UYEN CLEMENS on 01/12/25 Normal [facility] Basic metabolic 2000 panelon 11-09-2024 Anion gap [Moles/Vol] 11 mmol/L Normal 8-15 [facility] Comment on above: Order Comment: Speci men Type: BLOOD SPECIMENOrdering Facility: [facility] Address: [facility] [place] [address] Performed By: #### 3 016-3, 36884-5, 2132-05, ####[facility] LABCLIA [id number] [address] [address] [place] Calcium [Mass/Vol] 9.5 mg/dL Normal 8.5-10.2 [facility] Comment on above: Order Comment: Speci men Type: BLOOD SPECIMENOrdering Facility: [facility] Address: [address] [place], [place] [address] Performed By: #### 3 016-3, 20186-8, 2132-05, ####[facility] LABIA [id number] [place] [id number] [place] Chloride [Moles/Vol] 104 mmol/L Normal 98-107 [facility] Comment on above: Order Comment: Speci men Type: BLOOD SPECIMENOrdering Facility: [facility] Address: [address] [place], [place] [address] Performed By: #### 3 016-3, 62653-6, 2132-05, ####[facility] LABIA [id number] [place] [id number] [place] CO2 [Moles/Vol] 28 mmol/L Normal 22-30 [facility] Comment on above: Order Comment: Speci men Type: BLOOD SPECIMENOrdering Facility: [facility] Address: [address] [place], [place] [address] Performed By: #### 3 016-3, 86384-3, 2132-05, ####[facility] LABIA [id number] [address] [address] [place] Creatinine [Mass/Vol] 1.06 mg/dL High 0.58-0.96 [facility] Comment on above: Order Comment: Speci men Type: BLOOD SPECIMENOrdering Facility: [facility] Address: [address] [place] [address] Performed By: #### 3 016-3, 76385-0, 2132-05, ####[facility] LABIA [id number] [place] [address] [place] Creatinine and Glomerular filtration rate.predicted panel (S/P/Bld) 56 mL/min/1.73m??? Low >=60 [facility] Comment on above: Order Comment: Sergey ha Type: BLOOD SPECIMENOrdering Facility: [facility] Address: [address] [place] [address] Result Comment: Judy mated Glomerular Filtration Rate (eGFR) is calculated using the 2020 CKD-EPI creatinine equation. This equation utilizes serum creatinine, sex, and age as parameters. The creatinine assay has traceable calibration to isotope dilution-mass spectrometry. Refer to KDIGO guidelines for clinical interpretation. In patients with unstable renal function, e.g. those with acute kidney injury, the eGFR may not accurately reflect actual GFR. Performed By: #### 3 016-3, 20020-4, 2132-05, ####[facility] LABIA [id number] [place] [address] [place] Glucose [Mass/Vol] 153 mg/dL High 74-99 [facility] Comment on above: Order Comment: Sergey ha Type: BLOOD SPECIMENOrdering Facility: [facility] Address: [address] [place] [address] Result Comment: The [place] Diabetes Association (ADA) provides guidance for cutoff [...] Standards of Medical Care in Diabetes 2016, [place] [employer] Association. Diabetes Care. 2016.39(Suppl 1). Performed By: #### 3 016-3, 56862-8, 2132-05, ####[facility] LABIA [id number] [place] [address] [place] Potassium [Moles/Vol] 4.4 mmol/L Normal 3.7-5.1 [facility] Comment on above: Order Comment: Speci men Type: BLOOD SPECIMENOrdering Facility: [facility] Address: [address] [place] [address] Performed By: #### 3 016-3, 88595-1, 2132-05, ####[facility] [id number] [place] [address] [place] Sodium [Moles/Vol] 143 mmol/L Normal 136-144 [facility] Comment on above: Order Comment: Speci men Type: BLOOD SPECIMENOrdering Facility: [facility] Address: [address] [place] [address] Performed By: #### 3 016-3, 92474-6, 2132-05, ####[facility] [id number] [place] [address] [place] Urea nitrogen [Mass/Vol] 22 mg/dL High 7-21 [facility] Comment on above: Order Comment: Speci men Type: BLOOD SPECIMENOrdering Facility: [facility] Address: [address] [place] [address] Performed By: #### 3 016-3, 97709-1, 2132-05, ####[facility] [id number] [place] [address] [place] CBC W Auto Differential pane l (Bld)on 11-09-2024 Basophils (Bld) [#/Vol] 0.06 10*3/uL Normal <0.11 [facility] Comment on above: Order Comment: Speci men Type: BLOOD SPECIMENOrdering Facility: [facility] Address: [address] [place] [address] Performed By: #### 5 7021-8 ####[facility] LABCLIA [id number] [address], [place] [address] [place] Basophils/100 WBC (Bld) 0.8 % Normal [facility] Comment on above: Order Comment: Speci men Type: BLOOD SPECIMENOrdering Facility: [facility] Address: [address] [place] [address] Performed By: #### 5 7021-8 ####[facility] LABCLIA [id number] [address], [address] [place] Differential cell count method Nom (Bld) Auto Normal [facility] Comment on above: Order Comment: Speci men Type: BLOOD SPECIMENOrdering Facility: [facility] Address: [address] [place] [address] Performed By: #### 5 7021-8 ####[facility] LABCLIA [id number] [address], [place] [address] [place] Eosinophils (Bld) [#/Vol] 0.46 10*3/uL High <0.46 [facility] Comment on above: Order Comment: Speci men Type: BLOOD SPECIMENOrdering Facility: [facility] Address: [address] [place] [address] Performed By: #### 5 7021-8 ####[facility] LABCLIA [id number] [address] [place] Eosinophils/100 WBC (Bld) 6.5 % Normal [facility] Comment on above: Order Comment: Speci men Type: BLOOD SPECIMENOrdering Facility: [facility] Address: [address] [place] [address] Performed By: #### 5 7021-8 ####[facility] LABCLIA [id number] [place] [address] [place] Erythrocyte distribution width (RBC) [Ratio] 13.9 % Normal 11.5-15.0 [facility] Comment on above: Order Comment: Speci men Type: BLOOD SPECIMENOrdering Facility: [facility] Address: [address] [place] [address] Performed By: #### 5 7021-8 ####[facility] LABCLIA [id number] [place] [address] [place] Hematocrit (Bld) [Volume fraction] 34.6 % Low 36.0-46.0 [facility] Comment on above: Order Comment: Speci men Type: BLOOD SPECIMENOrdering Facility: [facility] Address: [address] [place] [address] Performed By: #### 5 7021-8 ####[facility] LABIA [id number] [place] [address] [place] Hemoglobin (Bld) [Mass/Vol] 10.8 g/dL Low 11.5-15.5 [facility] Comment on above: Order Comment: Speci men Type: BLOOD SPECIMENOrdering Facility: [facility] Address: [address] [place] [address] Performed By: #### 5 7021-8 ####[facility] LABIA [id number] [place] [address] [place] Immature granulocytes (Bld) [#/Vol] 10*3/uL Normal <0.10 [facility] Comment on above: Order Comment: Speci men Type: BLOOD SPECIMENOrdering Facility: [facility] Address: [address] [place] [address] Performed By: #### 5 7021-8 ####[facility] LABIA [id number] [place] [address] [place] Immature granulocytes/100 WBC (Bld) 0.3 % Normal [facility] Comment on above: Order Comment: Speci men Type: BLOOD SPECIMENOrdering Facility: [facility] Address: [address] [place] [address] Performed By: #### 5 7021-8 ####[facility] LABCLIA [id number] [place] [address] [place] Lymphocytes (Bld) [#/Vol] 3.04 10*3/uL Normal 1.00-4.00 [facility] Comment on above: Order Comment: Speci men Type: BLOOD SPECIMENOrdering Facility: [facility] Address: [address] [place] [address] Performed By: #### 5 7021-8 ####[facility] LABCLIA [id number] [place] [address] [place] Lymphocytes/100 WBC (Bld) 42.9 % Normal [facility] Comment on above: Order Comment: Speci men Type: BLOOD SPECIMENOrdering Facility: [facility] Address: [address] [place] [address] Performed By: #### 5 7021-8 ####[facility] LABCLIA [id number] [place] [id number] [place] MCH (RBC) [Entitic mass] 27.6 pg Normal 26.0-34.0 [facility] Comment on above: Order Comment: Speci men Type: BLOOD SPECIMENOrdering Facility: [facility] Address: [address] [place] [address] Performed By: #### 5 7021-8 ####[facility] LABCLIA [id number] [place] [id number] [place] MCHC (RBC) [Mass/Vol] 31.2 g/dL Normal 30.5-36.0 [facility] Comment on above: Order Comment: Speci men Type: BLOOD SPECIMENOrdering Facility: [facility] Address: [address] [place] [address] Performed By: #### 5 7021-8 ####[facility] LABCLIA [id number] [place] [address] [place] MCV (RBC) [Entitic vol] 88.5 fL Normal 80.0-100.0 [facility] Comment on above: Order Comment: Speci men Type: BLOOD SPECIMENOrdering Facility: [facility] Address: [address] [place] [address] Performed By: #### 5 7021-8 ####[facility] LABCLIA [id number] [place] [address] [place] Monocytes (Bld) [#/Vol] 0.54 10*3/uL Normal <0.87 [facility] Comment on above: Order Comment: Speci men Type: BLOOD SPECIMENOrdering Facility: [facility] Address: [address] [place] [address] Performed By: #### 5 7021-8 ####[facility] LABCLIA [id number] [place] [address] [place] Monocytes/100 WBC (Bld) 7.6 % Normal [facility] Comment on above: Order Comment: Speci men Type: BLOOD SPECIMENOrdering Facility: [facility] Address: [address] [place] [address] Performed By: #### 5 7021-8 ####[facility] LABCLIA [id number] [place] [address] [place] Neutrophils (Bld) [#/Vol] 2.96 10*3/uL Normal 1.45-7.50 [facility] Comment on above: Order Comment: Speci men Type: BLOOD SPECIMENOrdering Facility: [facility] Address: [address] [place] [address] Performed By: #### 5 7021-8 ####[facility] LABCLIA [id number] [place] [id number] [place] Neutrophils/100 WBC (Bld) 41.9 % Normal [facility] Comment on above: Order Comment: Speci men Type: BLOOD SPECIMENOrdering Facility: [facility] Address: [address] [place] [address] Performed By: #### 5 7021-8 ####[facility] LABCLIA [id number] [place] [address] [place] Nucleated RBC (Bld) [#/Vol] 10*3/uL Normal <0.01 [facility] Comment on above: Order Comment: Speci men Type: BLOOD SPECIMENOrdering Facility: [facility] Address: [address] [place] [address] Performed By: #### 5 7021-8 ####[facility] LABCLIA [id number] [place] [address] [place] Nucleated RBC/100 WBC (Bld) [Ratio] 0.0 /100 WBC Normal [facility] Comment on above: Order Comment: Speci men Type: BLOOD SPECIMENOrdering Facility: [facility] Address: [address] [place] [address] Performed By: #### 5 7021-8 ####[facility] LABIA [id number] [place] [address] [place] Platelet mean volume (Bld) [Entitic vol] 9.8 fL Normal 9.0-12.7 [facility] Comment on above: Order Comment: Speci men Type: BLOOD SPECIMENOrdering Facility: [facility] Address: [address] [place] [address] Performed By: #### 5 7021-8 ####[facility] LABCLIA [id number] [place] [id number] [place] Platelets (Bld) [#/Vol] 352 10*3/uL Normal 150-400 [facility] Comment on above: Order Comment: Speci men Type: BLOOD SPECIMENOrdering Facility: [facility] Address: [address] [place] [address] Performed By: #### 5 7021-8 ####[facility] LABCLIA [id number] [address] [address] [place] RBC (Bld) [#/Vol] 3.91 10*6/uL Normal 3.90-5.20 [facility] Comment on above: Order Comment: Speci men Type: BLOOD SPECIMENOrdering Facility: [facility] Address: [address] [place] [address] Performed By: #### 5 7021-8 ####[facility] [id number] [place] [address] [place] WBC (Bld) [#/Vol] 7.08 10*3/uL Normal 3.70-11.00 [facility] Comment on above: Order Comment: Speci men Type: BLOOD SPECIMENOrdering Facility: [facility] Address: [address] [place] [address] Performed By: #### 5 7021-8 ####[facility] [id number] [place] [address] [place] HbA1c (Bld)on 11-09-2024 Average glucose Estimated from glycated hemoglobin (Bld) [Mass/Vol] 200 mg/dL Normal [facility] Comment on above: Order Comment: Speci men Type: BLOOD SPECIMENOrdering Facility: [facility] Address: [address] [place] [address] Result Comment: eAG: (Estimated average glucose) is a calculated value from HgbA1c and is underwriting account representative of the average blood glucose level in the last 2-3 month period. Performed By: #### 5 5454-3 ####[facility] [id number] [place] [address] [place] HbA1c (Bld) [Mass fraction] 8.6 % High 4.3-5.6 [facility] Comment on above: Order Comment: Speci men Type: BLOOD SPECIMENOrdering Facility: [facility] Address: [address] [place] [address] Result Comment: [place] Diabetes Association guidelines indicate that patients with HgbA1c in the range 5.7-6.4% are at increased risk for development of diabetes, and intervention by lifestyle modification may be beneficial. HgbA1c greater or equal to 6.5% is considered diagnostic of diabetes. Performed By: #### 5 5454-3 ####[facility] LABCLIA [id number] [place] [address] [place] Magnesium SerPl-mCncon 11-09 Magnesium [Mass/Vol] 1.6 mg/dL Low 1.7-2.3 [facility] Comment on above: Order Comment: Speci men Type: BLOOD SPECIMENOrdering Facility: [facility] Address: [address] [place] [address] Performed By: #### 3 016-3, 74581-9, 2132-05, ####[facility] LABCLIA [id number] [place] [address] [place] TSH SerPl-aCncon 11-09-2024 TSH Qn 2.570 m[IU]/L Normal 0.270-4.200 [facility] Comment on above: Order Comment: Speci men Type: BLOOD SPECIMENOrdering Facility: [facility] Address: [address] [place] [address] Performed By: #### 3 016-3, 88611-6, 2132-05, ####[facility] LABIA [id number] [place] [address] [place] Vit B12 SerPl-mCncon 025 Cobalamin (Vitamin B12) [Mass/Vol] 223 pg/mL Low 232-1245 [facility] Comment on above: Order Comment: Speci men Type: BLOOD SPECIMENOrdering Facility: [facility] Address: [address] [place] [address] Performed By: #### 3 016-3, 75022-8, 2132-05, ####[facility] LABCLIA [id number] [address] [place] [address] [facility] CNOVon 11-08-2024 CNOV Office Visit (FAMPWS ) CHLOE GUILLORY ([id number]) 1950 F Date Time Provider Department 11/08/24 12:40 PM [facility] During your visit today, we recorded the following information about you: Temperature Pulse Blood pressure Weight 97.2 degrees 73/minute 124/66 105.2 kg Michelle Smith APRN.CNP 11/23/2024 2:57 PM Addendum Chief Reason For [...] Healthcare Providers Seen: Patient Care Team: Michelle Smith APRN.CNP as PCP - General (Family Medicine) Myla Mcadams APRN.CNP as Trimmer Loader (Family Medicine) Michelle Smith APRN.CNP as Trimmer Loader (Family Medicine) Concerns today: Sputum- nasal drainage, [...] Disease, With Long-Term Current Use of Insulin ([facility]) - 04/04/2015 Comment: Dx: age 51. On [...] Some nausea, some vomiting with coughing, no diarrhea/constipation . No hematochezia/melena. No heartburn or reflux symptoms. [...] 05/07/2022 KAM (obstructive sleep apnea) 09/26/2015 DME: [facility] Other hyperlipidemia 03/23/2019 RLS (restless legs syndrome) [...] metFORMIN (GLUCOPHAGE) 500 mg tablet Take 2 tablet (more content not included)... Normal [facility] XR SHLDR >/=3V AP/KILEY AP/OTH R LTon 11-08-2024 XR SHLDR >/=3V AP/KILEY AP/OTHR LT * * *Final Report* * * DATE [...] IMPRESSION: 1. Osteoarthritis of the bilateral shoulders Advanced Practice Nurse Psychotherapist: JOHNSON Transcribe Date/Time: Nov 10 2024 5:27P Dictated by : WILL HALE MD This examination was interpreted and the report reviewed and electronically signed by: WILL HALE MD on Nov 10 2024 5:28PM EST [id number] N Normal [facility] XR SHLDR >/=3V AP/KILEY AP/OTH R RTon 11-08-2024 XR SHLDR >/=3V AP/KILEY AP/OTHR RT * * *Final Report* * * DATE [...] IMPRESSION: 1. Osteoarthritis of the bilateral shoulders Advanced Practice Nurse Psychotherapist: JOHNSON Transcribe Date/Time: Nov 10 2024 5:27P Dictated by : WILL HALE MD This examination was interpreted and the report reviewed and electronically signed by: WILL HALE MD on Nov 10 2024 5:28PM EST [id number] N Normal [facility] CNPN Telephone (FAMPWS) CHLOE GUILLORY ([id number]) 1950 F Date Time Provider Department 09/20/24 CULLEN FRANCOIS During your visit today, we recorded the following information about you: Shana Hoskins 09/20/2024 9:08 AM Signed Chloe is calling Cullen Francois PA-C today with concern regarding insulin problem. The patient is using insulin vials, she has no needles/syringes to administer. Please send a prescription to: [facility] in [place] today. Please call the patient once this is completed. Patient has been identified by name and birthdate. Duration of symptoms: N/A Person calling: self Call patient at: on cell [phone] (home) Was an appointment scheduled: No Closing statement: Results or non-symptom based questions: Thank you for calling [facility], your call will be returned within the next business day. Scarlett Grimm MA 09/20/2024 10:30 AM Signed Please see pt message. Can you Rx the correct syringes and pens needed? Do not see in previous Rx's what was prescribed to this patient? Looked in history and do not see needles or syringes? Last OV: 05/10/24 with JUANITO. Next appt; 11/08/24 with JUANITO. SUNNY Guo William J, MD 09/20/2024 12:31 PM Signed [...] it. Date Reviewed: 05/10/2024 Reviewed by: Michelle Smith APRN.GLASS CALIBRATOR - Fully Assessed Reason for Visit: Medication Problem [65] Cmt: Using insulin vials, she has no needles/syringes to administer Primary Visit Diagnosis:Type 2 diabetes mellitus with stage 3a chronic kidney disease, with long-term current use of insulin (HCC) [E11.22, N18.31, Z79.4] Order(s):Insulin Syringe-Needle U-100 (INSULIN SYRINGE) 1 mL 29 gauge x 1 Each once daily.Disp: 30 EachRfl: 11 Prescriptions [...] 1 tablet by mouth once daily. - fluticasone-salmetero l (WIXELA INHUB) 250-50 mcg/dose inhaler Inhale 1 [...] [E66.01] 04/04/2015 03/23/2019 Moderate persistent asthma without complication*07/11/20 15 KAM (obstructive sleep apnea) CPAP intolerant [*09/26/2015 [...] * 30 E* 11 09/20/2024 09/20/2025 Route: Misc Si Each once d (more content not included)... Normal [facility] FERRITINon 05-11-2024 Ferritin [Mass/Vol] 65.1 ng/mL 14.7 - 2 05.1 ng/mL [facility] Ferritin [Mass/Vol]on 2023 Interpretation and review of laboratory results Normal [facility] Iron and Iron binding capaci ty panelon 05-11-2024 Interpretation and review of laboratory results Abnormal [facility] Iron [Mass/Vol] 73 ug/dL 41 - 186 ug/dL [facility] Iron binding capacity [Mass/Vol] 402 ug/dL High 232 - 386 ug/dL [facility] Iron/TIBC [Molar ratio] 18.2 % 15.0 - 57.0 % [facility] CBC W Auto Differential pane l (Bld)on 05-10-2024 Basophils (Bld) [#/Vol] 0.06 10*3/uL [facility] Basophils/100 WBC (Bld) 0.7 % C [facility] Differential cell count method Nom (Bld) Auto [facility] Eosinophils (Bld) [#/Vol] 0.48 10*3/uL High [facility] Eosinophils/100 WBC (Bld) 5.9 % [facility] Erythrocyte distribution width (RBC) [Ratio] 13.7 % 11.5 - 15.0 % [facility] Hematocrit (Bld) [Volume fraction] 35.0 % Low 36.0 - 46.0 % [facility] Hemoglobin (Bld) [Mass/Vol] 10.8 g/dL Low 11.5 - 15.5 g/dL [facility] Immature granulocytes (Bld) [#/Vol] [facility] Immature granulocytes/100 WBC (Bld) 0.2 % [facility] Interpretation and review of laboratory results Abnormal [facility] Lymphocytes (Bld) [#/Vol] 2.94 10*3/uL [facility] Lymphocytes/100 WBC (Bld) 36.3 % [facility] MCH (RBC) [Entitic mass] 28.2 pg 26.0 - 34.0 pg [facility] MCHC (RBC) [Mass/Vol] 30.9 g/dL 30.5 - 36.0 g/dL [facility] MCV (RBC) [Entitic vol] 91.4 fL 80.0 - 100.0 fL [facility] Monocytes (Bld) [#/Vol] 0.61 10*3/uL [facility] Monocytes/100 WBC (Bld) 7.5 % [facility] Neutrophils (Bld) [#/Vol] 4.00 10*3/uL [facility] Neutrophils/100 WBC (Bld) 49.4 % [facility] Nucleated RBC (Bld) [#/Vol] NINF [facility] Nucleated RBC/100 WBC (Bld) [Ratio] 0.0 % /100 WBC [facility] Platelet mean volume (Bld) [Entitic vol] 10.2 fL 9.0 - 12.7 fL [facility] Platelets (Bld) [#/Vol] 388 10*3/uL [facility] RBC (Bld) [#/Vol] 3.83 10*6/uL Low 3.90 - 5.2 0 m/uL [facility] WBC (Bld) [#/Vol] 8.11 10*3/uL [facility] Emergency Department Summary on 01-27-2024 Emergency Department Summary [facility] Medical Records Department [address] [place] [address] Emergency Department Summary 01/27/24 MR#: [id number] Acct: [id number] Name: CHLOE GUILLORY Rep #: [id number] : 1950 73 From: Rio Arevalo DO PCP: RADU Romo Status:DEP ER Location: ED HPI History of Present Illness Chief Complaint: Back Informant: patient Onset/Context/Timing Onset: Days (3) Context: Gradual Onset Injury: repetitive motion Timing: Continuous Quality: Sharp, Aching and Burning Location: Thoracic Worsened by: improves with Nothing Relieved by: Nothing Associated Symptoms Associated Symptoms: Negative for Numbness, Tingling, Radiation to Right Leg, Radiation to Left Leg, Fever, Abdominal Pain, Dysuria, Unable to Ambulate, Unable to Transfer, Urinary Retention, Urinary Incontinence, Constipation or Fecal Incontinence Narrative Narrative: Patient presents with back pain that has been getting worse over the past 3 days. Patient states she was doing some gardening and her pain began the next day. Patient describes it as sharp, aching, and burning. Patient states it is over the left lower thoracic area. Patient states nothing makes it better nothing makes it worse. Patient denies any radiation of the pain. Patient denies any paresthesias or weakness. Patient denies any bowel or bladder changes. Patient denies any saddle anesthesia. [facility] Medical History (Updated 01/27/24 @ 21:[address] Rio Arevalo, DO) Wears glasses Post-menopausal History of steroid therapy Thyroid disease Insulin dependent diabetes mellitus Diabetes Arthritis History of renal disease Anemia Restless legs Sleep apnea Shortness of breath on exertion Hoarseness History of stress test Hypertension History of irregular heartbeat Hx of endometriosis Home Medications ???Medication ???Instructions ???Recorded ???Last Taken ???Type albuterol sulfate 90 mcg/actuation 2 puff inhalation Q6H PRN PRN Sob 03/27/19 Unknown History aerosol inhaler /Or Wheezing diltiazem HCl 360 mg 360 mg PO DAILY 03/27/19 Unknown History tablet,extended release 24 hr fenofibrate nanocrystallized 145 145 mg PO DAILY 03/27/19 Unknown History mg tablet levothyroxine 50 mcg tablet 50 mcg PO DAILY 03/27/19 05/07/22 History fluticasone 250 mcg-salmeterol 50 1 inh inhalation BID 04/30/22 Unknown History mcg/dose blistr powdr for inhalation (Wixela Inhub) olmesartan 20 mg tablet 20 mg PO DAILY 04/30/22 Unknown History dulaglutide 3 mg/0.5 mL 3 mg subcut QWEEK 01/04/23 Unknown History subcutaneous pen injector insulin detemir U-100 100 unit/mL 25 unit subcut QHS 01/04/23 Unknown History (3 mL) subcutaneous pen pregabalin 75 mg capsule 75 mg PO QHS 01/04/23 Unknown History cyclobenzaprine 10 mg tablet 10 mg PO QHS PRN PRN Muscle Spasm 01/27/24 Unknown Rx #10 TABLETS hydrocodone-acetamino phen 5-325mg 1 tab PO Q6H PRN PRN Pain 3 days 01/27/24 Unknown Rx 5mg-325mg #12 TABLETS Allergy/AdvReac Type Severity Reaction Status Date / Time liraglutide (From Victoza) Allergy PT UNSURE Verified 01/27/24 17:26 OF REACTION empagliflozin (From AdvReac Other Verified 01/27/24 17:26 Jardiance) Surgical History History of cardiac catheterization Hx of hysterectomy Hx of tonsillectomy Hx of appendectomy Social History Smoking Status: Never smoker ROS ROS ED Constitutional Constitutional ED: Denies chills or fever(s) Eyes Eyes: Denies blurry vision or change in vision ENT ENT ED: Denies rhinorrhea or sore throat Cardiovascular Cardiovascular: Denies chest pain or palpitations Respiratory/Chest Respiratory/Chest: Denies cough or dyspnea Gastrointestinal Gastrointestinal: Denies nausea or vomiting Genitourinary Genitourinary ED: Denies dysuria or hematuria Musculoskeletal Musculoskeletal: Reports back pain; Denies neck pain Integumentary Denies abscess or rash Neurologic Neurologic: Denies headache(s) or weakness Allergic/Immunologic Allergic/Immunologic ED: Denies mouth swelling or urticaria EXAM Physical Exam Const Vital Signs: 01/27/24 17:25 Temperature 98 F Temperature Source Temporal Pulse Rate 66 Respiratory Rate 16 Blood Pressure 129/75 H Blood Pressure Mean 93 Pulse Ox 97 Oxygen Delivery Method Room Air Positive well nourished and well developed General Appearance ED: well developed and NAD HEENT Reports moist mucous membranes Neck supple and no JVD Resp normal respiratory effort and clear to auscultation bilaterally Cardio regular rate and regular rhythm Back/Spine Back/Spine Narrative: There is tenderness and mild spasm of the left lower th (more content not included)... Normal [facility] DBT Breast - right diagnosti c for implanton 12-09-2023 [facility] US Breast - right limitedon 12-09-2023 [facility] ECHOon 07-21-2023 [facility] MANJULA DIAG W HAILEE BILATERALon 07-08-2023 [facility] No Panel Informationon 07-08 [facility] SPIROMETRY WITH DILATOR IF O BSTRUCTEDon 07-07-2023 SFY99-41% POST (L/S) 1.09 L/S [facility] DEJ61-12% PRE (L/S) 0.68 L/S [facility] FEV1 PRE (L) 1.37 L [facility] FEV1/FVC POST (%) 69 % [facility] FEV1/FVC PRE (%) 66 % [facility] FEV1_POST (L) 1.54 L [facility] FVC POST (L) 2.22 L [facility] FVC PRE (L) 2.08 L [facility] PEF POST (L/S) 5.49 L/S [facility] PEF PRE (L/S) 4.70 L/S [facility] ESR Westergren method (Bld) [Velocity]on 04-02-2023 ESR (Bld) [Velocity] 20 mm/h 0 - 20 mm/hr Cl [facility] CBC W Auto Differential pane l (Bld)on 04-01-2023 Basophils (Bld) [#/Vol] 0.07 10*3/uL <0.11 k/uL [facility] Basophils/100 WBC (Bld) 0.8 % C [facility] Differential cell count method Nom (Bld) Auto [facility] Eosinophils (Bld) [#/Vol] 0.32 10*3/uL <0.46 k/uL [facility] Eosinophils/100 WBC (Bld) 3.8 % [facility] Erythrocyte distribution width (RBC) [Ratio] 13.3 % 11.5 - 15.0 % [facility] Hematocrit (Bld) [Volume fraction] 38.4 % 36.0 - 46.0 % [facility] Hemoglobin (Bld) [Mass/Vol] 12.1 g/dL 11.5 - 15.5 g/dL [facility] Immature granulocytes (Bld) [#/Vol] 0.03 10*3/uL <0.10 k/uL [facility] Immature granulocytes/100 WBC (Bld) 0.4 % [facility] Lymphocytes (Bld) [#/Vol] 3.18 10*3/uL 1.00 - 4.00 k/uL [facility] Lymphocytes/100 WBC (Bld) 37.7 % [facility] MCH (RBC) [Entitic mass] 28.5 pg 26.0 - 34.0 pg [facility] MCHC (RBC) [Mass/Vol] 31.5 g/dL 30.5 - 36.0 g/dL [facility] MCV (RBC) [Entitic vol] 90.4 fL 80.0 - 100.0 fL [facility] Monocytes (Bld) [#/Vol] 0.62 10*3/uL <0.87 k/uL [facility] Monocytes/100 WBC (Bld) 7.4 % C [facility] Neutrophils (Bld) [#/Vol] 4.21 10*3/uL 1.45 - 7.50 k/uL [facility] Neutrophils/100 WBC (Bld) 49.9 % [facility] Nucleated RBC (Bld) [#/Vol] <0.01 k/uL [facility] Nucleated RBC/100 WBC (Bld) [Ratio] 0.0 /100 WBC [facility] Platelet mean volume (Bld) [Entitic vol] 10.2 fL 9.0 - 12.7 fL [facility] Platelets (Bld) [#/Vol] 322 10*3/uL 150 - 400 k/uL [facility] RBC (Bld) [#/Vol] 4.25 10*6/uL 3.90 - 5.2 0 m/uL [facility] WBC (Bld) [#/Vol] 8.43 10*3/uL 3.70 - 11. 00 k/uL [facility] DIAGNOSTIC LTon 01-25-20 23 [facility] * * *Final Report* * * * * * SEE BOTTOM OF REPORT FOR ADDENDED TEXT * * * DATE OF EXAM: Jan 24 2023 4:13PM AAW 0621 - [facility] DIAG[facility] LT / PROCEDURE REASON: Abnormal ultrasound of breast * * * * Physician Interpretation * * * * FINAL REPORT #[id number] - [facility] US BIOPSY BREAST LT #[id number] - [facility] ULTRASOUND GUIDED BIOPSY LEFT BREAST WITH MARKING DEVICE INSERTED AND POST DIGITAL MAMMOGRAPHIC AND ULTRASOUND IMAGIN01/24/2023 HISTORY: Abnormal Ultrasound Of Breast Abnormal Ultrasound Of Breast /Post breast biopsy clip placement. PATIENT CONSENT: A time out was performed immediately prior to procedure start with the nursing and radiology team, correctly identifying the patient name, date of , procedure, anatomy (including marking of site and side), patient position, relevant diagnostic and radiology test results, safety precautions, and procedure-specific equipment needs. The procedure was explained to the patient including the risks, benefits and alternatives. Medications were also reviewed. The risks, including but not limited to infection and bleeding, were reviewed by the performing physician and the patient agreed to undergo the procedure. Dr. Parks and a certified performance technologist were present throughout the entire procedure. Audible Time Out Time: 1425 Procedure Start Time: 1427 Procedure Stop Time: 1430 Dr. Parks performed the entire procedure without an assistant clinical director. PROCEDURE: Correlation is made to exams dated: 12/31/2022 ultrasound and 12/31/2022 mammogram - [facility]. An ultrasound guided biopsy using real-time ultrasound was performed for the concerning lobulated mass located in the left breast at 2 o'clock middle depth 7 cm from the nipple. This was described on the previous mammography and ultrasound reports. The skin was prepped in the usual manner. Local anesthetic was administered to the access site. A skin jia was made in the breast. The abnormality was approached from the lateral aspect. A 14 gauge biopsy needle was placed adjacent to the abnormality under ultrasound guidance. Once the needle was documented to be in the correct location, three cores were obtained using an Achieve automated firing device. A heart shaped clip was inserted into the biopsy cavity. A skin closure strip and a sterile dressing were applied to the access site. Post procedure digital mammographic and ultrasound imaging demonstrates the location device at the targeted area. The specimens were sent to the laboratory for pathological analysis. IMPRESSION: ULTRASOUND GUIDED BIOPSY BENIGN Ultrasound guided biopsy of the mass in the left breast at 2 o'clock middle depth 7 cm from the nipple with placement of a clip was successful with no apparent post procedure complications. Pathology indicates benign finding. Pathology results are concordant with imaging findings. A follow-up mammogram in 6 months is recommended to demonstrate stability. SUMMARY: Pathology results are as follows: FINAL DIAGNOSIS A. Breast, left, 2:00, 7 cm from nipple (heart clip), core biopsy: - Breast tissue with mucin, focally associated with cyst lined by benign epithelium, (see comment). Diagnosis Comment The mucin contains occasional inflammatory cells and cellular debris; no malignant cells are identified. The differential includes a mucocele-like lesion. The patient is under the care of Dr. Maggy Akers for the above results and surgical management. Given possibility of a mucocele like lesion, surgical consultation is recommended. If excision is not pursued, then close follow up would be recommended with follow up mammogram/ultrasound in 6 months. Vicky sauer/mario:01/30/2023 19:40:20 Baggage Security Checker(s): Robson Freeman(R)(M), [facility]; RT Wilmar(R)(M), [facility] Multiple national specialty organizations have released breast cancer screening guidelines for women at average risk for developing breast cancer - guidelines that are based on both evidence and opinion, yet differ on when to start and how often to screen for breast cancer. With representation from Breast Imaging, Internal Medicine, Women's Health, Family Medicine, and Medical/Surgical Oncology, the [facility] has carefully reviewed the data and reached the following consensus: 1) All women should engage in shared decision-making with their providers to decide when to start and how often to screen; 2) All women should have the opportunity to start screening mammography at age 40; 3) For women ages 45-55, we recommend annual screening mammograms; 4) For women ages 55 and over, we support both the transition from an annual to a biennial interval if this aligns more with patient's values and preferences, or continuation with annual screening; 5) All women should discuss with their providers when to stop screenin (more content not included)... Normal [facility] US BIOPSY BREAST LTon [facility] US BIOPSY BREAST LT * * *Final Repor t* * * * * * SEE BOTTOM OF REPORT FOR ADDENDED TEXT * * * DATE OF EXAM: Jan 24 2023 2:44PM AAW 0597 - [facility] US BIOPSY BREAST LT / PROCEDURE REASON: Abnormal ultrasound of breast * * * * Physician Interpretation * * * * FINAL REPORT #[id number] - [facility] US BIOPSY BREAST LT #[id number] - [facility] ULTRASOUND GUIDED BIOPSY LEFT BREAST WITH MARKING DEVICE INSERTED AND POST DIGITAL MAMMOGRAPHIC AND ULTRASOUND IMAGIN01/24/2023 HISTORY: Abnormal Ultrasound Of Breast Abnormal Ultrasound Of Breast /Post breast biopsy clip placement. PATIENT CONSENT: A time out was performed immediately prior to procedure start with the nursing and radiology team, correctly identifying the patient name, date of , procedure, anatomy (including marking of site and side), patient position, relevant diagnostic and radiology test results, safety precautions, and procedure-specific equipment needs. The procedure was explained to the patient including the risks, benefits and alternatives. Medications were also reviewed. The risks, including but not limited to infection and bleeding, were reviewed by the performing physician and the patient agreed to undergo the procedure. Dr. Parks and a certified performance technologist were present throughout the entire procedure. Audible Time Out Time: 1425 Procedure Start Time: 1427 Procedure Stop Time: 1430 Dr. Parks performed the entire procedure without an assistant clinical director. PROCEDURE: Correlation is made to exams dated: 12/31/2022 ultrasound and 12/31/2022 mammogram - [facility]. An ultrasound guided biopsy using real-time ultrasound was performed for the concerning lobulated mass located in the left breast at 2 o'clock middle depth 7 cm from the nipple. This was described on the previous mammography and ultrasound reports. The skin was prepped in the usual manner. Local anesthetic was administered to the access site. A skin jia was made in the breast. The abnormality was approached from the lateral aspect. A 14 gauge biopsy needle was placed adjacent to the abnormality under ultrasound guidance. Once the needle was documented to be in the correct location, three cores were obtained using an Achieve automated firing device. A heart shaped clip was inserted into the biopsy cavity. A skin closure strip and a sterile dressing were applied to the access site. Post procedure digital mammographic and ultrasound imaging demonstrates the location device at the targeted area. The specimens were sent to the laboratory for pathological analysis. IMPRESSION: ULTRASOUND GUIDED BIOPSY BENIGN Ultrasound guided biopsy of the mass in the left breast at 2 o'clock middle depth 7 cm from the nipple with placement of a clip was successful with no apparent post procedure complications. Pathology indicates benign finding. Pathology results are concordant with imaging findings. A follow-up mammogram in 6 months is recommended to demonstrate stability. SUMMARY: Pathology results are as follows: FINAL DIAGNOSIS A. Breast, left, 2:00, 7 cm from nipple (heart clip), core biopsy: - Breast tissue with mucin, focally associated with cyst lined by benign epithelium, (see comment). Diagnosis Comment The mucin contains occasional inflammatory cells and cellular debris; no malignant cells are identified. The differential includes a mucocele-like lesion. The patient is under the care of Dr. Maggy Akers for the above results and surgical management. Given possibility of a mucocele like lesion, surgical consultation is recommended. If excision is not pursued, then close follow up would be recommended with follow up mammogram/ultrasound in 6 months. Vicky sauer/mario:01/30/2023 19:40:20 Baggage Security Checker(s): Robson Freeman(R)(M), [facility]; RT Wilmar(R)(M), [facility] Multiple national specialty organizations have released breast cancer screening guidelines for women at average risk for developing breast cancer - guidelines that are based on both evidence and opinion, yet differ on when to start and how often to screen for breast cancer. With representation from Breast Imaging, Internal Medicine, Women's Health, Family Medicine, and Medical/Surgical Oncology, the [facility] has carefully reviewed the data and reached the following consensus: 1) All women should engage in shared decision-making with their providers to decide when to start and how often to screen; 2) All women should have the opportunity to start screening mammography at age 40; 3) For women ages 45-55, we recommend annual screening mammograms; 4) For women ages 55 and over, we support both the transition from an annual to a biennial interval if this aligns more with patient's values and preferences, or continuation with annual screening; 5) All women should discuss with their providers when to stop sc (more content not included)... Normal [facility] SURGICAL PATHOLOGYon 023 CASE REPORT Normal [facility] Comment on above: Order Comment: Speci men Type: TISSUE SPECIMEN Ordering Facility: [facility] Address: [address] [place], [place] [id number] Result Comment: Surg ical Pathology Report Case: [id number] Authorizing Provider: Vicky Parks MD Collected: 01/24/2023 02:41 PM Ordering Location: [facility] Received: 01/24/2023 02:52 PM [facility] Pathologist: Herbert Park MD Specimen: BREAST CORE BIOPSY LEFT, 2:00 7 cm FN, left breast, heart clip, collected 2:27pm, 3x14g achieve Performed By: #### S #### [facility] CLIA [id number] [address] [place] [address] CLINICAL HISTORY Suspicious lobulated mass Normal [facility] Comment on above: Order Comment: Speci men Type: TISSUE SPECIMEN Ordering Facility: [facility] Address: [address] [place] [address] Performed By: #### S #### [facility] CLIA [id number] [address] DIAGNOSIS COMMENT The mucin contains occasional inflammatory cells and cellular debris; no malignant cells are identified. The differential includes a mucocele-like lesion. The case was reviewed by Dr. Rio Goetz, who agrees with this assessment. Normal [facility] Comment on above: Order Comment: Speci men Type: TISSUE SPECIMEN Ordering Facility: [facility] Address: [address] [place] [address] Performed By: #### S #### [facility] CLIA [id number] [address] FINAL DIAGNOSIS Normal [facility] Comment on above: Order Comment: Speci men Type: TISSUE SPECIMEN Ordering Facility: [facility] Address: [address] [place] [address] Result Comment: A. B reast, left, 2:00, 7 cm from nipple (heart clip), core biopsy: - Breast tissue with mucin, focally associated with cyst lined by benign epithelium, (see comment). Performed By: #### S #### [facility] CLIA [id number] [address] [place] [address] FINAL PERFORMING LAB Normal [facility] Comment on above: Order Comment: Speci men Type: TISSUE SPECIMEN Ordering Facility: [facility] Address: [address] [place] [address] Result Comment: Diag nostic interpretation performed at [facility], [address] [place] [address] CLIA# [id number] Footwear Production Machine Operator: Rio Goetz M.D. Performed By: #### S #### [facility] CLIA [id number] [address] [place] [address] GROSS DESCRIPTION Normal [facility] Comment on above: Order Comment: Speci men Type: TISSUE SPECIMEN Ordering Facility: [facility] Address: [address] [place] [address] Result Comment: A. B REAST CORE BIOPSY LEFT Received in formalin labeled as ``left breast 2:00, 7 cm from nipple (heart clip)? are multiple segments of cylindrical tissue aggregating to 1.0 x 0.4 x 0.2 cm, yellow and of a rubbery consistency. Totally submitted in one cassette. The specimen was removed from the patient at 2:27 PM on 01/24/2023. On the same day, the specimen was placed in formalin at 2:27 PM. Gross examination performed at [facility], [address] [place] [address] CLIA#[id number] [facility] January 24, 2023 3:03 PM Performed By: #### S #### [facility] CLIA [id number] [address] [place] [id number] [facility] MANJULA DIAG W HAILEE LEFTon 12-31 [facility] US BREAST LTD LTon [facility] MANJULA DIAG W HAILEE LTon 023 [facility] No Panel Informationon 10-01 [facility] No Panel Informationon 07-26 IMPRESSION: 1. Changes suggesting previous calcific tendinitis supraspinatus tendon LEFT side. 2. 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 Advanced Practice Nurse Psychotherapist: JOHNSON Transcribe Date/Time: Jul 26 2022 1:04P Dictated by : PRINCESS MUÑIZ DO This examination was interpreted and the report reviewed and electronically signed by: PRINCESS MUÑIZ DO on Jul 26 2022 1:05PM [facility] DIVISION OF RADIOLOGY Radiology Study observation (narrative) [facility] No Panel InformationOrdered By: [facility] Provider on 07-26-2022 [facility] XR Shoulder - left 3 Viewson 07-26-2022 * * *Final Report* * * DATE OF EXAM: Jul 26 2022 12:03PM WOX [id number] - XR SHLDR >/=3V AP/KILEY AP/OTHR LT / PROCEDURE REASON: multiple diagnoses * * * * Physician Interpretation * * * * EXAM(s): XR SHLDR >/=3V AP/KILEY AP/OTHR LT, XR SHLDR >/=3V AP/KILEY AP/OTHR RT EXAM DATE/TIME: 07/26/2022 12:03 PM HISTORY: 72 years old Clinical information: Bilateral shoulder pain, unspecified chronicity Bilateral shoulder pain, unspecified chronicity Bilateral chronic shoulder pain TECHNIQUE: Images: XR SHLDR >/=3V AP/KILEY AP/OTHR LT, XR SHLDR >/=3V AP/KILEY AP/OTHR RT Comparison: None. RESULT: Findings: Bilateral findings: Moderate degenerative changes in the AC joints Right :No fractures or dislocations are seen. Left :No fractures or dislocations are seen. Calcification in the soft tissues along the greater tuberosity of the humerus is noted. This is probably due to previous calcific tendinitis of the supraspinatus tendon.. DIVISION OF RADIOLOGY Provider, [facility] - 07/26/2022 * * *Final Report* * * DATE OF EXAM: Jul 26 2022 12:03PM WOX 5252 - XR SHLDR >/=3V AP/KILEY AP/OTHR LT / PROCEDURE REASON: multiple diagnoses * * * * Physician Interpretation * * * * EXAM(s): XR SHLDR >/=3V AP/KILEY AP/OTHR LT, XR SHLDR >/=3V AP/KILEY AP/OTHR RT EXAM DATE/TIME: 07/26/2022 12:03 PM HISTORY: 72 years old Clinical information: Bilateral shoulder pain, unspecified chronicity Bilateral shoulder pain, unspecified chronicity Bilateral chronic shoulder pain TECHNIQUE: Images: XR SHLDR >/=3V AP/KILEY AP/OTHR LT, XR SHLDR >/=3V AP/KILEY AP/OTHR RT Comparison: None. RESULT: Findings: Bilateral findings: Moderate degenerative changes in the AC joints Right :No fractures or dislocations are seen. Left :No fractures or dislocations are seen. Calcification in the soft tissues along the greater tuberosity of the humerus is noted. This is probably due to previous calcific tendinitis of the supraspinatus tendon.. IMPRESSION IMPRESSION: 1. Changes suggesting previous calcific tendinitis supraspinatus tendon LEFT side. 2. 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 XR Shoulder - right 3 Viewso n 07-26-2022 * * *Final Report* * * DATE OF EXAM: Jul 26 2022 12:03PM WOX 5253 - XR SHLDR >/=3V AP/KILEY AP/OTHR RT / PROCEDURE REASON: multiple diagnoses * * * * Physician Interpretation * * * * EXAM(s): XR SHLDR >/=3V AP/KILEY AP/OTHR LT, XR SHLDR >/=3V AP/KILEY AP/OTHR RT EXAM DATE/TIME: 07/26/2022 12:03 PM HISTORY: 72 years old Clinical information: Bilateral shoulder pain, unspecified chronicity Bilateral shoulder pain, unspecified chronicity Bilateral chronic shoulder pain TECHNIQUE: Images: XR SHLDR >/=3V AP/KILEY AP/OTHR LT, XR SHLDR >/=3V AP/KILEY AP/OTHR RT Comparison: None. RESULT: Findings: Bilateral findings: Moderate degenerative changes in the AC joints Right :No fractures or dislocations are seen. Left :No fractures or dislocations are seen. Calcification in the soft tissues along the greater tuberosity of the humerus is noted. This is probably due to previous calcific tendinitis of the supraspinatus tendon.. DIVISION OF RADIOLOGY Provider, [facility] - 07/26/2022 * * *Final Report* * * DATE OF EXAM: Jul 26 2022 12:03PM WOX 5253 - XR SHLDR >/=3V AP/KILEY AP/OTHR RT / PROCEDURE REASON: multiple diagnoses * * * * Physician Interpretation * * * * EXAM(s): XR SHLDR >/=3V AP/KILEY AP/OTHR LT, XR SHLDR >/=3V AP/KILEY AP/OTHR RT EXAM DATE/TIME: 07/26/2022 12:03 PM HISTORY: 72 years old Clinical information: Bilateral shoulder pain, unspecified chronicity Bilateral shoulder pain, unspecified chronicity Bilateral chronic shoulder pain TECHNIQUE: Images: XR SHLDR >/=3V AP/KILEY AP/OTHR LT, XR SHLDR >/=3V AP/KILEY AP/OTHR RT Comparison: None. RESULT: Findings: Bilateral findings: Moderate degenerative changes in the AC joints Right :No fractures or dislocations are seen. Left :No fractures or dislocations are seen. Calcification in the soft tissues along the greater tuberosity of the humerus is noted. This is probably due to previous calcific tendinitis of the supraspinatus tendon.. IMPRESSION IMPRESSION: 1. Changes suggesting previous calcific tendinitis supraspinatus tendon LEFT side. 2. 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 Advanced Practice Nurse Psychotherapist: JOHNSON Transcribe Date/Time: Jul 26 2022 1:04P Dictated by : PRINCESS MUÑIZ DO This examination was interpreted and the report reviewed and electronically signed by: PRINCESS MUÑIZ DO on Jul 26 2022 1:05PM EST [facility] MANJULA DIAG W HAILEE LTon 022 [facility] US BREAST LTD LTon 2 [facility] MANJULA SCREENINGon 06-03-2022 [facility] Glucose Glucometer (BldC) [M ass/Vol]on 05-07-2022 Glucose [Mass/Vol] 218 mg/dL 74-106 [facility] Work Phone: Comment on above: MANAGEMENT OF PATIEN T CARE PER NURSING PROTOCOL INR in Blood by Coagulation assayon 05-02-2022 INR Coag (Bld) [Relative time] 0.9 {INR} [facility] Work Phone: Laboratory - Coagulationon 0 05-02-2022 aPTT Coag (Bld) [Time] 36.5 s 24.1-36.2 [facility] Work Phone: PT Coag (PPP) [Time] 12.0 s 11.7-14.[address] [facility] Work Phone: No Panel Informationon 05-02 Thyroid Stimulating Hormone (TSH) 2.40 uIU/mL 0.358-3.74 [facility] Work Phone: Whole blood hemoglobin A1c/t otal hemoglobin ratio (mass fraction)on 05-02-2022 HbA1c (Bld) [Mass fraction] 6.7 % 3.8-5.6 [facility] Work Phone: Comment on above: Normal < 5.7 % Predi abetic 5.7 - 6.4 % Diabetic >or= 6.5 % Please note range changes. Basophil percentageon 2021 Basophil percentage 4.1 mg/dL 2.5-4.9 [facility] Work Phone: Chloride [Moles/Vol] 106 mmol/L 98-107 [facility] Work Phone: Glucose [Mass/Vol] 125 mg/dL 74-106 [facility] Work Phone: Comment on above: Fasting Glucose resu lt from 100 to 125 mg/dL suggests IMPAIRED HOMEOSTASIS per A.D.A. criteria. Potassium [Moles/Vol] 4.5 mmol/L 3.5-5.1 [facility] Work Phone: Sodium [Moles/Vol] 137 mmol/L 136-145 [facility] Work Phone: WBC (Bld) [#/Vol] 6.4 10*3/uL 4.4-11.0 [facility] Work Phone: Blood erythrocytes count (nu mber/volume)on 04-08-2022 RBC (Bld) [#/Vol] 3.97 10*6/uL 4.2-5.4 [facility] Work Phone: Blood hemoglobin measurement (mass/volume)on 04-08-2022 Hemoglobin (Bld) [Mass/Vol] 11.7 g/dL 12.0-15.0 [facility] Work Phone: Blood platelet mean volumeon 04-08-2022 Platelet mean volume (Bld) [Entitic vol] 9.2 fL 6.2-12.0 [facility] Work Phone: Determination of erythrocyte mean corpuscular volume (MCV)on 04-08-2022 MCV (RBC) [Entitic vol] 88.7 fL 81-99 [facility] Work Phone: Hematocrit Auto (Bld) [Volum e fraction]on 04-08-2022 Hematocrit (Bld) [Volume fraction] 35.2 % 37-47 [facility] Work Phone: Iron measurement (mass/mass) on 04-08-2022 Iron (Unsp spec) [Mass/Mass] 59 ug/dL 50-170 [facility] Work Phone: Laboratory - Chemistry and C hemistry - challengeon 04-08-2022 CO2 [Moles/Vol] 26.0 mmol/L 21.0-32.0 [facility] Work Phone: Urea nitrogen/Creatinine [Mass ratio] 24.4 mg/mg 10-20 [facility] Work Phone: Laboratory - Hematology and Cell countson 04-08-2022 Erythrocyte distribution width (RBC) [Entitic vol] 44.8 fL 35.1-43.9 [facility] Work Phone: Erythrocyte distribution width (RBC) [Ratio] 13.8 % 11.6-14.6 [facility] Work Phone: MCH (RBC) [Entitic mass] 29.5 pg 27.0-32.0 [facility] Work Phone: MCHC Auto (RBC) [Mass/Vol]on 04-08-2022 MCHC (RBC) [Mass/Vol] 33.2 g/dL 32-36 [facility] Work Phone: No Panel Informationon 04-08 Estimated GFR (MDRD) Amer 58 mL/min >60 [facility] Work Phone: Comment on above: GFR Calc Estimated GFR (MDRD) Non-Af Amer 48 mL/min >60 [facility] Work Phone: Comment on above: Non- GFR Calc Total Iron Binding Capacity 417 ug/dL 250-450 [facility] Work Phone: Platelets bldon 04-08-2022 Platelets (Bld) [#/Vol] 319 10*3/uL 150-450 [facility] Work Phone: Serum or plasma albumin jose urement (mass/volume)on 04-08-2022 Albumin [Mass/Vol] 3.6 g/dL 3.2-5.0 [facility] Work Phone: Serum or plasma calcium jose urement (mass/volume)on 04-08-2022 Calcium [Mass/Vol] 9.3 mg/dL 8.5-10.1 [facility] Work Phone: Serum or plasma creatinine m easurement (mass/volume)on 04-08-2022 Creatinine [Mass/Vol] 1.19 mg/dL 0.55-1.02 [facility] Work Phone: Comment on above: The validity of the calculated GFR & GFRAA in patients over 70 years has not been determined. Clinical correlation is essential. Serum or plasma ferritin yojana surement (mass/volume)on 04-08-2022 Ferritin [Mass/Vol] 38 ng/mL 8-252 [facility] Work Phone: Serum or plasma iron saturat ion measurement (mass fraction)on 04-08-2022 Iron saturation [Mass fraction] 14.1 % 15.0-55.0 [facility] Work Phone: Serum or plasma urea nitroge n measurement (mass/volume)on 04-08-2022 Urea nitrogen [Mass/Vol] 29 mg/dL 7-18 [facility] Work Phone: Urine creatinine measurement (mass/volume)on 04-08-2022 Creatinine (U) [Mass/Vol] 165.00 mg/dL NO RANGE EST. [facility] Work Phone: Urine protein measurement (m ass/volume)on 04-08-2022 Protein (U) [Mass/Vol] 11.7 mg/dL 0.0-11.8 [facility] Work Phone: Urine protein/creatinine mas s ratioon 04-08-2022 Protein/Creatinine (U) [Mass ratio] 71 mg/g CRE 0-200 [facility] Work Phone: Absolute lymphocyte counton 03-12-2022 Lymphocytes Auto (Unsp spec) [#/Vol] 1.80 10*3/uL 0.83-4.51 [facility] Work Phone: [phone] Basophil percentageon 2021 Basophil percentage 0-5 SEEN /hpf 0-5 [facility] Work Phone: [phone] Basophils/100 WBC (Bld) 0.3 % 0-1 [facility] Work Phone: [phone] Bilirubin [Mass/Vol] 0.20 mg/dL 0.20-1.00 [facility] Work Phone: [phone] Comment on above: For patients on eltr ombopag therapy, use of Dimension [place] TBIL is not recommended. Chloride [Moles/Vol] 102 mmol/L 98-107 [facility] Work Phone: [phone] Eosinophils/100 WBC (Bld) 0.1 % 0-5 [facility] Work Phone: Glucose [Mass/Vol] 215 mg/dL 74-106 [facility] Work Phone: [phone] Comment on above: Glucose result great er than or equal to 200 mg/dLsuggests DIABETES MELLITUS per A.D.A. criteria. Neutrophils (Bld) [#/Vol] 8.6 10*3/uL 2.0-7.7 [facility] Work Phone: Neutrophils/100 WBC (Bld) 80.5 % 47-70 [facility] Work Phone: [phone] Potassium [Moles/Vol] 3.9 mmol/L 3.5-5.1 [facility] Work Phone: [phone] Protein [Mass/Vol] 7.5 g/dL 6.4-8.2 [facility] Work Phone: [phone] Sodium [Moles/Vol] 137 mmol/L 136-145 [facility] Work Phone: [phone] WBC (Bld) [#/Vol] 10.6 10*3/uL 4.4-11.0 [facility] Work Phone: Bilirubin Test strip Ql (U)o n 03-12-2022 Bilirubin Ql (U) Negative Negative [facility] Work Phone: Blood erythrocytes count (nu mber/volume)on 03-12-2022 RBC (Bld) [#/Vol] 4.07 10*6/uL 4.2-5.4 [facility] Work Phone: Blood hemoglobin measurement (mass/volume)on 03-12-2022 Hemoglobin (Bld) [Mass/Vol] 11.4 g/dL 12.0-15.0 [facility] Work Phone: Blood lymphocytes/100 leukoc yteson 03-12-2022 Lymphocytes/100 WBC (Bld) 16.9 % 19-41 [facility] Work Phone: Blood monocytes/100 leukocyt eson 03-12-2022 Monocytes/100 WBC (Bld) 1.6 % 0-10 [facility] Work Phone: Blood platelet mean volumeon 03-12-2022 Platelet mean volume (Bld) [Entitic vol] 9.3 fL 6.2-12.0 [facility] Work Phone: Determination of erythrocyte mean corpuscular volume (MCV)on 03-12-2022 MCV (RBC) [Entitic vol] 86.0 fL 81-99 [facility] Work Phone: Hematocrit Auto (Bld) [Volum e fraction]on 03-12-2022 Hematocrit (Bld) [Volume fraction] 35.0 % 37-47 [facility] Work Phone: Ketones Test strip Ql (U)on 03-12-2022 Ketones Ql (U) 15 mg/dl Negative [facility] Work Phone: Laboratory - Chemistry and C hemistry - challengeon 03-12-2022 ALP [Catalytic activity/Vol] 51 U/L 45-117 [facility] Work Phone: ALT [Catalytic activity/Vol] 34 U/L 13-56 [facility] Work Phone: [phone] CO2 [Moles/Vol] 26.0 mmol/L 21.0-32.0 [facility] Work Phone: [phone] Globulin (S) [Mass/Vol] 3.8 g/dL 2.2-4.2 [facility] Work Phone: [phone] Lipase [Catalytic activity/Vol] 108 U/L 73-393 [facility] Work Phone: [phone] Urea nitrogen/Creatinine [Mass ratio] 22.5 mg/mg 10-20 [facility] Work Phone: Laboratory - Hematology and Cell countson 03-12-2022 Erythrocyte distribution width (RBC) [Entitic vol] 41.3 fL 35.1-43.9 [facility] Work Phone: Erythrocyte distribution width (RBC) [Ratio] 13.2 % 11.6-14.6 [facility] Work Phone: Immature granulocytes/100 WBC (Bld) 0.600 % 0.0-0.9 [facility] Work Phone: Comment on above: IG% - Immature Granu locytes (promyelocytes, myelocytes and metamyelocytes) > 1% indicates that a LEFT SHIFT is Present. MCH (RBC) [Entitic mass] 28.0 pg 27.0-32.0 [facility] Work Phone: Nucleated RBC/100 WBC (Bld) [Ratio] 0 % 0-5 [facility] Work Phone: MCHC Auto (RBC) [Mass/Vol]on 03-12-2022 MCHC (RBC) [Mass/Vol] 32.6 g/dL 32-36 [facility] Work Phone: Mucus LM Ql (Urine sed)on Mucus Ql ([facility]rine sed) 1+ /h[facility] Work [facility]: Nitrite Test strip Ql (U)on 03-12-2022 Nitrite Ql (U) Negative Negative [facility] Work Phone: No Panel Informationon 03-12 Estimated Creatinine Clearance Calc 38.73 ml/min [facility] Work Phone: Estimated GFR (MDRD) Amer 69 mL/min >60 [facility] Work Phone: Comment on above: GFR Calc Estimated GFR (MDRD) Non-Af Amer 57 mL/min >60 [facility] Work Phone: Comment on above: Non- GFR Calc Troponin I High Sensitivity 22 pg/mL 3.0-54.0 [facility] Work Phone: Comment on above: Please Note: New Ana t Units and Gender Specific Reference Ranges. For more information see Policy Stat Procedure [place] High Sensitivity Troponin (TNIH) and attachments. Platelets bldon 03-12-2022 Platelets (Bld) [#/Vol] 357 10*3/uL 150-450 [facility] Work Phone: Protein Test strip Ql (U)on 03-12-2022 Protein Ql (U) 30 mg/dl Negative [facility] Work Phone: Serum or plasma albumin jose urement (mass/volume)on 03-12-2022 Albumin [Mass/Vol] 3.7 g/dL 3.2-5.0 [facility] Work Phone: Serum or plasma albumin/glob ulin mass ratioon 03-12-2022 Albumin/Globulin [Mass ratio] 1.0 {ratio} 0.9-2.4 [facility] Work Phone: Serum or plasma calcium jose urement (mass/volume)on 03-12-2022 Calcium [Mass/Vol] 9.4 mg/dL 8.5-10.1 [facility] Work Phone: Serum or plasma creatinine m easurement (mass/volume)on 03-12-2022 Creatinine [Mass/Vol] 1.02 mg/dL 0.55-1.02 [facility] Work Phone: Comment on above: The validity of the calculated GFR & GFRAA in patients over 70 years has not been determined. Clinical correlation is essential. Serum or plasma urea nitroge n measurement (mass/volume)on 03-12-2022 Urea nitrogen [Mass/Vol] 23 mg/dL 7-18 [facility] Work Phone: Squamous epithelial cells de tection in urine sediment by light microscopyon 03-12-2022 Epithelial cells.squamous LM Ql (Urine sed) 0 SEEN /hpf 5-10 [facility] Work Phone: Thin prep Papanicolaou smear with manual screeningon 03-12-2022 Thin prep Papanicolaou smear with manual screening 18 U/L 15-37 [facility] Work Phone: Thin prep Papanicolaou smear with manual screening 9 5-15 [facility] Work Phone: Urine blood detectionon 03-01 RBC Ql (U) 50 /ul Negative [facility] Work Phone: RBC Ql (U) 0-5 SEEN /hpf 0-5 [facility] Work Phone: Urine clarityon 03-12-2022 Clarity (U) Sl. Cloudy Clear [facility] Work Phone: Urine color determinationon 03-12-2022 Color (U) Yellow Yellow [facility] Work Phone: Urine glucose detectionon Glucose Ql (U) 100 mg/dl Normal [facility] Work Phone: Urine leukocyte esterase det ection by dipstickon 03-12-2022 Leukocyte esterase Test strip Ql (U) 25 /ul Negative [facility] Work Phone: Urine pHon 03-12-2022 pH (U) 6.5 [pH] 5.0 - 8.0 [facility] Work Phone: Urine sediment bacteria coun t by microscopy (number/high power field)on 07-12-2022 Bacteria LM.HPF (Urine sed) [#/Area] 1 /[HPF] None Seen [facility] Work Phone: Urine specific gravity measu rementon 03-12-2022 Specific gravity (U) [Rel density] 1.015 1.002-1.030 [facility] Work Phone: Urobilinogen Auto test strip Ql (U)on 03-12-2022 Urobilinogen Ql (U) Normal mg/dl Normal [facility] Work Phone: XR Shoulder - right 2 Viewso n 11-26-2021 IMPRESSION: Mild degenerative changes Advanced Practice Nurse Psychotherapist: JOHNSON Transcribe Date/Time: Nov 26 2021 8:16A Dictated by : WILL AGUILAR MD This examination was interpreted and the report reviewed and electronically signed by: WILL AGUILAR MD on Nov 26 2021 8:18AM [facility] DIVISION OF RADIOLOGY * * *Final Report* * * DATE OF EXAM: Nov 26 2021 8:15AM WOX 5255 - XR SHOULDER 2V AP/TRUE AP RT / PROCEDURE REASON: Acute pain of right shoulder * * * * Physician Interpretation * * * * HISTORY: Acute pain of right shoulder pain for a month getting worse now that she cannot raise her right arm pain in upper right shoulder and arm no inj TECHNIQUE: 2 views COMPARISON: None RESULT: Glenohumeral joint appears intact. Humeral head appears intact. Slight spurring superolaterally from the humeral head. No soft tissue calcification. Mild degenerative changes involving the AC joint with mild inferior AC joint spurring. No abnormal upward riding of the humeral head. No bony destructive change. DIVISION OF RADIOLOGY Provider, [facility] - 11/26/2021 * * *Final Report* * * DATE OF EXAM: Nov 26 2021 8:15AM WOX 5255 - XR SHOULDER 2V AP/TRUE AP RT / PROCEDURE REASON: Acute pain of right shoulder * * * * Physician Interpretation * * * * HISTORY: Acute pain of right shoulder pain for a month getting worse now that she cannot raise her right arm pain in upper right shoulder and arm no inj TECHNIQUE: 2 views COMPARISON: None RESULT: Glenohumeral joint appears intact. Humeral head appears intact. Slight spurring superolaterally from the humeral head. No soft tissue calcification. Mild degenerative changes involving the AC joint with mild inferior AC joint spurring. No abnormal upward riding of the humeral head. No bony destructive change. IMPRESSION IMPRESSION: Mild degenerative changes Advanced Practice Nurse Psychotherapist: JOHNSON Transcribe Date/Time: Nov 26 2021 8:16A Dictated by : WILL AGUILAR MD This examination was interpreted and the report reviewed and electronically signed by: WILL AGUILAR MD on Nov 26 2021 8:18AM EST [facility] Radiology Study observation (narrative) Westley rashid [facility] XR Shoulder - right 2 ViewsO rdered By: [facility] Provider on 11-26-2021 [facility] Vital Signs Date Time Vital Sign Value Performing Clinician Facility 05-10-2025 11:54-0400 Diastolic blood pressure 66 mm[Hg] Michelle Smith APRN.CNP Work Phone: [facility] 05-10-2025 11:54-0400 Systolic blood pressure 108 mm[Hg] Michelle Smtih APRN.GLASS CALIBRATOR Work Phone: [facility] 05-10-2025 11:32-0400 Body mass index (BMI) [Ratio] 41.95 kg/m2 Michelle Smith BOBBIN STRIPPER.GLASS CALIBRATOR Work Phone: [facility] 05-10-2025 11:32-0400 Body weight 100.7 kg Michelle Smith APRN.GLASS CALIBRATOR Work Phone: [facility] 05-10-2025 11:32-0400 Heart rate 86 /min Michelle Smith APRN.GLASS CALIBRATOR Work Phone: [facility] 05-10-2025 11:32-0400 SaO2% (BldA) [Mass fraction] 95 % Michelle Smith APRN.GLASS CALIBRATOR Work Phone: [facility] 04-01-2025 13:40-0400 Body height 154.9 cm Alvin Schmitz MD Work Phone: [facility] 04-01-2025 13:40-0400 Body mass index (BMI) [Ratio] 42.99 kg/m2 Alvin Schmitz MD Work Phone: [facility] 04-01-2025 13:40-0400 Body weight 103.2 kg Alvin Schmitz MD Work Phone: [facility] 04-01-2025 13:40-0400 Diastolic blood pressure 64 mm[Hg] Alvin Schmitz MD Work Phone: [facility] 04-01-2025 13:40-0400 Heart rate 68 /min Alvin Schmitz MD Work Phone: [facility] 04-01-2025 13:40-0400 SaO2% (BldA) [Mass fraction] 96 % Alvin Schmitz MD Work Phone: [facility] 04-01-2025 13:40-0400 Systolic blood pressure 112 mm[Hg] Alvin Schmitz MD Work Phone: [facility] 02-11-2025 12:13-0400 Diastolic blood pressure 64 mm[Hg] Michelle Suppan BOBBIN STRIPPER.GLASS CALIBRATOR Work Phone: [facility] 02-11-2025 12:13-0400 Systolic blood pressure 122 mm[Hg] Michelle Suppan BOBBIN STRIPPER.GLASS CALIBRATOR Work Phone: [facility] 02-11-2025 11:41-0400 Body mass index (BMI) [Ratio] 43.08 kg/m2 Michelle Suppan BOBBIN STRIPPER.GLASS CALIBRATOR Work Phone: [facility] 02-11-2025 11:41-0400 Body weight 103.42 kg Michelle Suppan BOBBIN STRIPPER.GLASS CALIBRATOR Work Phone: [facility] 02-11-2025 11:41-0400 Heart rate 65 /min Michelle Suppan BOBBIN STRIPPER.GLASS CALIBRATOR Work Phone: [facility] 02-11-2025 11:41-0400 SaO2% (BldA) [Mass fraction] 95 % Michelle Suppan BOBBIN STRIPPER.GLASS CALIBRATOR Work Phone: [facility] 11-08-2024 12:51-0400 Body mass index (BMI) [Ratio] 43.84 kg/m2 Michelle Suppan BOBBIN STRIPPER.GLASS CALIBRATOR Work Phone: [facility] 11-08-2024 12:51-0400 Body temperature 97.2 [degF] Michelle Suppan BOBBIN STRIPPER.GLASS CALIBRATOR Work Phone: [facility] 11-08-2024 12:51-0400 Body weight 105.23 kg Michelle Suppan BOBBIN STRIPPER.GLASS CALIBRATOR Work Phone: [facility] 11-08-2024 12:51-0400 Diastolic blood pressure 66 mm[Hg] Michelle Suppan BOBBIN STRIPPER.GLASS CALIBRATOR Work Phone: [facility] 11-08-2024 12:51-0400 Heart rate 73 /min Michelle Suppan BOBBIN STRIPPER.GLASS CALIBRATOR Work Phone: [facility] 11-08-2024 12:51-0400 SaO2% (BldA) [Mass fraction] 96 % Michelle Suppan BOBBIN STRIPPER.GLASS CALIBRATOR Work Phone: [facility] 11-08-2024 12:51-0400 Systolic blood pressure 124 mm[Hg] Michelle Suppan BOBBIN STRIPPER.GLASS CALIBRATOR Work Phone: [facility] 05-10-2024 12:46-0400 Body mass index (BMI) [Ratio] 40.43 kg/m2 Michelle Suppan BOBBIN STRIPPER.GLASS CALIBRATOR Work Phone: [facility] 05-10-2024 12:46-0400 Body weight 97.07 kg Michelle Suppan BOBBIN STRIPPER.GLASS CALIBRATOR Work Phone: [facility] 05-10-2024 12:46-0400 Diastolic blood pressure 62 mm[Hg] Michelle Suppan BOBBIN STRIPPER.GLASS CALIBRATOR Work Phone: [facility] 05-10-2024 12:46-0400 Heart rate 82 /min Michelle Suppan BOBBIN STRIPPER.GLASS CALIBRATOR Work Phone: [facility] 05-10-2024 12:46-0400 Respiratory rate 16 /min Michelle Suppan BOBBIN STRIPPER.GLASS CALIBRATOR Work Phone: [facility] 05-10-2024 12:46-0400 SaO2% (BldA) [Mass fraction] 97 % Michelle Smith BOBBIN STRIPPER.GLASS CALIBRATOR Work Phone: [facility] 05-10-2024 12:46-0400 Systolic blood pressure 120 mm[Hg] Michelle Smith BOBBIN STRIPPER.GLASS CALIBRATOR Work Phone: [facility] 11-03-2023 12:57-0500 Body weight 97.98 kg NA Francois PA-C Work Phone: [facility] 11-03-2023 12:57-0500 Diastolic blood pressure 62 mm[Hg] NA Francois PA-C Work Phone: [facility] 11-03-2023 12:57-0500 Heart rate 82 /min NA Francois PA-C Work Phone: [facility] 11-03-2023 12:57-0500 Respiratory rate 16 /min NA Francois PA-C Work Phone: [facility] 11-03-2023 12:57-0500 SaO2% (BldA) [Mass fraction] 98 % NA Francois PA-C Work Phone: [facility] 11-03-2023 12:57-0500 Systolic blood pressure 102 mm[Hg] NA Francois PA-C Work Phone: [facility] 07-07-2023 13:12-0500 Body height 154.9 cm Pulm Wstr Work Phone: [facility] 07-07-2023 13:12-0500 Body weight 102.51 kg Pulm Wstr Work Phone: [facility] 07-07-2023 13:12-0500 Heart rate 79 /min Pulm Wstr Work Phone: [facility] 07-07-2023 13:12-0500 Respiratory rate 14 /min Pulm Wstr Work Phone: [facility] 07-07-2023 13:12-0500 SaO2% (BldA) [Mass fraction] 96 % Pulm Wstr Work Phone: [facility] 04-01-2023 11:32-0400 Body weight 102.51 kg NA Francois PA-C Work Phone: [facility] 04-01-2023 11:32-0400 Diastolic blood pressure 60 mm[Hg] NA Francois PA-C Work Phone: [facility] 04-01-2023 11:32-0400 Heart rate 73 /min NA Francois PA-C Work Phone: [facility] 04-01-2023 11:32-0400 Respiratory rate 18 /min NA Francois PA-C Work Phone: [facility] 04-01-2023 11:32-0400 SaO2% (BldA) [Mass fraction] 97 % NA Francois PA-C Work Phone: [facility] 04-01-2023 11:32-0400 Systolic blood pressure 118 mm[Hg] NA Francois PA-C Work Phone: [facility] 01-06-2023 15:14-0400 Body height 154.9 cm Maggy Akers MD Work Phone: [facility] 01-06-2023 15:14-0400 Body temperature 96.91 [degF] Maggy Akers MD Work Phone: [facility] 01-06-2023 15:14-0400 Body weight 102.42 kg Maggy Akers MD Work Phone: [facility] 01-06-2023 15:14-0400 Diastolic blood pressure 86 mm[Hg] Maggy Akers MD Work Phone: [facility] 01-06-2023 15:14-0400 Heart rate 89 /min Maggy Akers MD Work Phone: [facility] 01-06-2023 15:14-0400 SaO2% (BldA) [Mass fraction] 97 % Maggy Akers MD Work Phone: [facility] 01-06-2023 15:14-0400 Systolic blood pressure 128 mm[Hg] Maggy Akers MD Work Phone: [facility] 01-04-2023 16:23-0400 Body height 154.94 cm [facility] 01-04-2023 16:23-0400 Body mass index (BMI) [Ratio] 42.8 kg/m2 [facility] 01-04-2023 16:23-0400 Body temperature 98 [degF] [facility] 01-04-2023 16:23-0400 Body weight 102.87 kg [facility] 01-04-2023 16:23-0400 Diastolic blood pressure 64 mm[Hg] [facility] 01-04-2023 16:23-0400 Heart rate 82 /min [facility] 01-04-2023 16:23-0400 Respiratory rate 20 /min [facility] 01-04-2023 16:23-0400 SaO2% (BldA) [Mass fraction] 99 % [facility] 01-04-2023 16:23-0400 Systolic blood pressure 133 mm[Hg] [facility] 12-31-2022 14:21-0400 Body temperature 97.3 [degF] Molly Duque PA-C Work Phone: [facility] 12-31-2022 14:21-0400 Body weight 103.78 kg Molly Duque PA-C Work Phone: [facility] 12-31-2022 14:21-0400 Diastolic blood pressure 73 mm[Hg] Molly Duque PA-C Work Phone: [facility] 12-31-2022 14:21-0400 Heart rate 73 /min Molly Duque PA-C Work Phone: [facility] 12-31-2022 14:21-0400 Respiratory rate 16 /min Molly Duque PA-C Work Phone: [facility] 12-31-2022 14:21-0400 SaO2% (BldA) [Mass fraction] 96 % Molly Duque PA-C Work Phone: [facility] 12-31-2022 14:21-0400 Systolic blood pressure 114 mm[Hg] Molly Duque PA-C Work Phone: [facility] 11-29-2022 15:22-0400 Body temperature 97.9 [degF] Sabasania Seeer PA-C Work Phone: [facility] 11-29-2022 15:22-0400 Body weight 101.97 kg Saba Seeer PA-C Work Phone: [facility] 11-29-2022 15:22-0400 Diastolic blood pressure 62 mm[Hg] Sabasania Seeer PA-C Work Phone: [facility] 11-29-2022 15:22-0400 Heart rate 75 /min Saba er PA-C Work Phone: [facility] 11-29-2022 15:22-0400 Respiratory rate 18 /min Sabasania Seeer PA-C Work Phone: [facility] 11-29-2022 15:22-0400 SaO2% (BldA) [Mass fraction] 96 % Sabasania Seeer PA-C Work Phone: [facility] 11-29-2022 15:22-0400 Systolic blood pressure 117 mm[Hg] Sabasania Seeer PA-C Work Phone: [facility] 11-21-2022 11:46-0400 Body weight 101.61 kg NA Francois PA-C Work Phone: [facility] 11-21-2022 11:46-0400 Diastolic blood pressure 70 mm[Hg] NA Francois PA-C Work Phone: [facility] 11-21-2022 11:46-0400 Heart rate 74 /min NA Francois PA-C Work Phone: [facility] 11-21-2022 11:46-0400 SaO2% (BldA) [Mass fraction] 95 % NA Francois PA-C Work Phone: [facility] 11-21-2022 11:46-0400 Systolic blood pressure 128 mm[Hg] NA Francois PA-C Work Phone: [facility] 10-18-2022 14:06-0500 Body weight 100.15 kg Chicho Carroll Jr., MD Work Phone: [facility] 10-18-2022 14:06-0500 Diastolic blood pressure 82 mm[Hg] Chicho Carroll Jr., MD Work Phone: [facility] 10-18-2022 14:06-0500 Heart rate 110 /min Chicho Carroll Jr., MD Work Phone: [facility] 10-18-2022 14:06-0500 Respiratory rate 18 /min Chicho Carroll Jr., MD Work Phone: [facility] 10-18-2022 14:06-0500 SaO2% (BldA) [Mass fraction] 98 % Chicho Carroll Jr., MD Work Phone: [facility] 10-18-2022 14:06-0500 Systolic blood pressure 122 mm[Hg] Chicho Carroll Jr., MD Work Phone: [facility] 09-11-2022 13:13-0500 Body weight 102.06 kg Hyun Archer APRN.GLASS CALIBRATOR Work Phone: [facility] 09-11-2022 13:13-0500 Diastolic blood pressure 66 mm[Hg] Hyun Archer APRN.GLASS CALIBRATOR Work Phone: [facility] 09-11-2022 13:13-0500 Systolic blood pressure 110 mm[Hg] Hyun Archer APRN.GLASS CALIBRATOR Work Phone: [facility] 09-10-2022 13:40-0500 Body weight 102.97 kg NA Francois PA-C Work Phone: [facility] 09-10-2022 13:40-0500 Diastolic blood pressure 70 mm[Hg] NA Francois PA-C Work Phone: [facility] 09-10-2022 13:40-0500 Heart rate 80 /min NA Francois PA-C Work Phone: [facility] 09-10-2022 13:40-0500 SaO2% (BldA) [Mass fraction] 98 % NA Francois PA-C Work Phone: [facility] 09-10-2022 13:40-0500 Systolic blood pressure 136 mm[Hg] NA Francois PA-C Work Phone: [facility] 08-23-2022 13:33-0500 Body weight 102.97 kg NA Francois PA-C Work Phone: [facility] 08-23-2022 13:33-0500 Diastolic blood pressure 68 mm[Hg] NA Francois PA-C Work Phone: [facility] 08-23-2022 13:33-0500 Heart rate 70 /min NA Francois PA-C Work Phone: [facility] 08-23-2022 13:33-0500 Respiratory rate 20 /min NA Francois PA-C Work Phone: [facility] 08-23-2022 13:33-0500 SaO2% (BldA) [Mass fraction] 98 % NA Francois PA-C Work Phone: [facility] 08-23-2022 13:33-0500 Systolic blood pressure 128 mm[Hg] NA Francois PA-C Work Phone: [facility] 07-29-2022 13:00-0500 Diastolic blood pressure 82 mm[Hg] Rossana Lemon PT [facility] 07-29-2022 13:00-0500 Systolic blood pressure 130 mm[Hg] Rossana Lemon PT [facility] 07-09-2022 14:05-0500 Body weight 102.06 kg Juliana Older BOBBIN STRIPPER.GLASS CALIBRATOR Work Phone: [facility] 07-09-2022 14:05-0500 Diastolic blood pressure 73 mm[Hg] Juliana Older BOBBIN STRIPPER.GLASS CALIBRATOR Work Phone: [facility] 07-09-2022 14:05-0500 Heart rate 69 /min Juliana Older BOBBIN STRIPPER.GLASS CALIBRATOR Work Phone: [facility] 07-09-2022 14:05-0500 Respiratory rate 18 /min Juliana Older BOBBIN STRIPPER.GLASS CALIBRATOR Work Phone: [facility] 07-09-2022 14:05-0500 Systolic blood pressure 137 mm[Hg] Juliana Older BOBBIN STRIPPER.GLASS CALIBRATOR Work Phone: [facility] 07-06-2022 09:46-0400 Body weight 101.61 kg Miguelito Jimenez BOBBIN STRIPPER.GLASS CALIBRATOR Work Phone: [facility] 07-06-2022 09:46-0400 Diastolic blood pressure 72 mm[Hg] Miguelito Jimenez BOBBIN STRIPPER.GLASS CALIBRATOR Work Phone: [facility] 07-06-2022 09:46-0400 Heart rate 76 /min Miguelito Jimenez BOBBIN STRIPPER.GLASS CALIBRATOR Work Phone: [facility] 07-06-2022 09:46-0400 SaO2% (BldA) [Mass fraction] 97 % Miguelito Jimenez BOBBIN STRIPPER.GLASS CALIBRATOR Work Phone: [facility] 07-06-2022 09:46-0400 Systolic blood pressure 130 mm[Hg] Miguelito Jimenez BOBBIN STRIPPER.GLASS CALIBRATOR Work Phone: [facility] 05-15-2022 12:53-0400 Body height 154.9 cm Maggy Akers MD Work Phone: [facility] 05-15-2022 12:53-0400 Body temperature 97.39 [degF] Maggy Akers MD Work Phone: [facility] 05-15-2022 12:53-0400 Body weight 101.15 kg Maggy Akers MD Work Phone: [facility] 05-15-2022 12:53-0400 Diastolic blood pressure 62 mm[Hg] Maggy Akers MD Work Phone: [facility] 05-15-2022 12:53-0400 Heart rate 87 /min Maggy Akers MD Work Phone: [facility] 05-15-2022 12:53-0400 SaO2% (BldA) [Mass fraction] 97 % Maggy Akers MD Work Phone: [facility] 05-15-2022 12:53-0400 Systolic blood pressure 128 mm[Hg] Maggy Akers MD Work Phone: [facility] 05-07-2022 14:53-0400 Body temperature 98 [degF] [facility] Work Phone: 05-07-2022 14:53-0400 Diastolic blood pressure 85 mm[Hg] [facility] Work Phone: 05-07-2022 14:53-0400 Heart rate 78 /min [facility] Work Phone: 05-07-2022 14:53-0400 Respiratory rate 19 /min [facility] Work Phone: 05-07-2022 14:53-0400 SaO2% (BldA) [Mass fraction] 95 % [facility] Work Phone: 05-07-2022 14:53-0400 Systolic blood pressure 142 mm[Hg] [facility] Work Phone: 05-07-2022 12:45-0400 Inhaled oxygen flow rate 2 L/min [facility] Work Phone: 05-07-2022 08:49-0400 Body height 154.94 cm [facility] Work Phone: 05-07-2022 08:49-0400 Body mass index (BMI) [Ratio] 42.2 kg/m2 [facility] Work Phone: 05-07-2022 08:49-0400 Body weight 101.4 kg [facility] Work Phone: 05-01-2022 10:33-0400 Body height 153.9 cm Scar Ceballos MD Work Phone: [facility] 05-01-2022 10:33-0400 Body temperature 97.11 [degF] Scar Ceballos MD Work Phone: [facility] 05-01-2022 10:33-0400 Body weight 101.61 kg Scar Ceballos MD Work Phone: [facility] 05-01-2022 10:33-0400 Diastolic blood pressure 64 mm[Hg] Scar Ceballos MD Work Phone: [facility] 05-01-2022 10:33-0400 Heart rate 72 /min Scar Ceballos MD Work Phone: [facility] 05-01-2022 10:33-0400 Respiratory rate 16 /min Scar Ceballos MD Work Phone: [facility] 05-01-2022 10:33-0400 Systolic blood pressure 128 mm[Hg] Scar Ceballos MD Work Phone: [facility] 04-08-2022 10:21-0400 Body height 154.9 cm Maggy Akers MD Work Phone: [facility] 04-08-2022 10:21-0400 Body temperature 97.59 [degF] Maggy Akers MD Work Phone: [facility] 04-08-2022 10:21-0400 Body weight 101.88 kg Maggy Akers MD Work Phone: [facility] 04-08-2022 10:21-0400 Diastolic blood pressure 64 mm[Hg] Maggy Akers MD Work Phone: [facility] 04-08-2022 10:21-0400 Heart rate 72 /min Maggy Akers MD Work Phone: [facility] 04-08-2022 10:21-0400 SaO2% (BldA) [Mass fraction] 98 % Maggy Akers MD Work Phone: [facility] 04-08-2022 10:21-0400 Systolic blood pressure 122 mm[Hg] Maggy Akers MD Work Phone: [facility] 03-20-2022 14:45-0400 Body temperature 97.11 [degF] Scar Ceballos MD Work Phone: [facility] 03-20-2022 14:45-0400 Body weight 101.61 kg Scar Ceballos MD Work Phone: [facility] 03-20-2022 14:45-0400 Diastolic blood pressure 64 mm[Hg] Scar Ceballos MD Work Phone: [facility] 03-20-2022 14:45-0400 Heart rate 68 /min Scar Ceballos MD Work Phone: [facility] 03-20-2022 14:45-0400 Respiratory rate 18 /min Scar Ceballos MD Work Phone: [facility] 03-20-2022 14:45-0400 Systolic blood pressure 126 mm[Hg] Scar Ceballos MD Work Phone: [facility] 03-12-2022 14:31-0400 Diastolic blood pressure 68 mm[Hg] [facility] Work Phone: 03-12-2022 14:31-0400 Heart rate 61 /min [facility] Work Phone: 03-12-2022 14:31-0400 Systolic blood pressure 181 mm[Hg] [facility] Work Phone: 03-12-2022 09:39-0400 Body height 154.94 cm [facility] Work Phone: 03-12-2022 09:39-0400 Body mass index (BMI) [Ratio] 42.5 kg/m2 [facility] Work Phone: 03-12-2022 09:39-0400 Body temperature 96.7 [degF] [facility] Work Phone: 03-12-2022 09:39-0400 Body weight 102.05 kg [facility] Work Phone: 03-12-2022 09:39-0400 Respiratory rate 18 /min [facility] Work Phone: 03-12-2022 09:39-0400 SaO2% (BldA) [Mass fraction] 97 % [facility] Work Phone: 03-11-2022 12:34-0400 Body temperature 97.39 [degF] Scar Ceballos MD Work Phone: [facility] 03-11-2022 12:34-0400 Body weight 102.51 kg Scar Ceballos MD Work Phone: [facility] 03-11-2022 12:34-0400 Diastolic blood pressure 64 mm[Hg] Scar Ceballos MD Work Phone: [facility] 03-11-2022 12:34-0400 Heart rate 64 /min Scar Ceballos MD Work Phone: [facility] 03-11-2022 12:34-0400 Respiratory rate 16 /min Scar Ceballos MD Work Phone: [facility] 03-11-2022 12:34-0400 Systolic blood pressure 136 mm[Hg] Scar Ceballos MD Work Phone: [facility] 11-24-2021 14:34-0400 Body temperature 97.81 [degF] Jana Praisler-Wood BOBBIN STRIPPER.GLASS CALIBRATOR Work Phone: [facility] 11-24-2021 14:34-0400 Body weight 104.78 kg Jana Praisler-Wood BOBBIN STRIPPER.GLASS CALIBRATOR Work Phone: [facility] 11-24-2021 14:34-0400 Diastolic blood pressure 78 mm[Hg] Jana Praisler-Wood BOBBIN STRIPPER.GLASS CALIBRATOR Work Phone: [facility] 11-24-2021 14:34-0400 Heart rate 92 /min Jana Praisler-Wood BOBBIN STRIPPER.GLASS CALIBRATOR Work Phone: [facility] 11-24-2021 14:34-0400 Respiratory rate 18 /min Jana Praisler-Wood BOBBIN STRIPPER.GLASS CALIBRATOR Work Phone: [facility] 11-24-2021 14:34-0400 SaO2% (BldA) [Mass fraction] 99 % Jana Praisler-Wood BOBBIN STRIPPER.GLASS CALIBRATOR Work Phone: [facility] 11-24-2021 14:34-0400 Systolic blood pressure 130 mm[Hg] Jana Erwin APRN.CNP Work Phone: [facility] Encounters Encounter Date Encounter Type Care Provider Facility Start: 05-18-2025 End: 05-18-2025 E-mail encounter from caregiver Kristin Byrne PA-C Work Phone: [facility] Start: 05-18-2025 End: 05-18-2025 ambulatory Kristin Byrne PA-C Work Phone: [facility] Comment on above: Lumbar xrays Start: 05-17-2025 End: 05-17-2025 ambulatory Michelle Smith APRN.GLASS CALIBRATOR Work Phone: [facility] [place] Comment on above: Medication Problem; Fatigue; chest pressure Start: 05-10-2025 End: 05-10-2025 Subsequent hospital visit by physician Xr [facility] [place] Work Phone: Radiology Comment on above: Lumbar radicular rose n [M54.16] Start: 05-10-2025 End: 05-10-2025 ambulatory MICHELLE A SUPPAN Facility:[facility] Start: 05-10-2025 End: 05-10-2025 Office outpatient visit 25 minutes Michelle Smith BOBBIN STRIPPER.GLASS CALIBRATOR Work Phone: [facility] [place] Comment on above: Class 3 severe obesi ty with body mass index (BMI) of 40.0 to 44.9 in adult (HCC) (Primary Dx); Primary hypertension; Insomnia, unspecified type; Encounter for screening mammogram for breast cancer; Screening for depression; Encounter for screening examination for other mental health and behavioral disorders; Type 2 diabetes mellitus with stage 3a chronic kidney disease, with long-term current use of insulin (HCC); Chronic pain of both shoulders; Moderate persistent asthma without complication ([facility]); Hypothyroidism, unspecified type; Stage 3a chronic kidney disease (HCC); Acute sinusitis, recurrence not specified, unspecified location Start: 05-04-2025 End: 05-04-2025 ambulatory Nikolas Craven [facility] Comment on above: Allied Health Visit (SPC) Start: 04-29-2025 End: 04-29-2025 ambulatory MICHELLE SMITH Facility:[facility] Start: 04-18-2025 End: 04-18-2025 Patient encounter procedure Kristin Byrne PA-C Work Phone: Orthopaedics Comment on above: 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); Lumbar radicular pain; Type 2 diabetes mellitus with hyperglycemia, with long-term current use of insulin ([facility]) Start: 04-18-2025 End: 04-18-2025 ambulatory KRISTIN BYRNE Facility:[facility] Start: 2025 End: 04-15-2025 Follow-up encounter Alvin Schmitz MD Work Phone: Cardiology Start: 04-12-2025 End: 04-12-2025 ambulatory ALVIN SCHMITZ Facility:[facility] Start: 04-01-2025 End: 04-01-2025 Patient encounter procedure Alvin Schmitz MD Work Phone: Cardiology Comment on above: 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, unspecified vessel or lesion type (Primary Dx); Pulmonary hypertension ([facility]); Dyslipidemia; Type 2 diabetes mellitus without ophthalmic manifestations ([facility]); KAM (obstructive sleep apnea) CPAP intolerant; Primary hypertension; Other hyperlipidemia; Hypothyroidism, unspecified type; Class 3 severe obesity with body mass index (BMI) of 40.0 to 44.9 in adult (HCC); Precordial pain Start: 04-01-2025 End: 04-01-2025 ambulatory ALVIN SCHMITZ Facility:[facility] Start: 03-15-2025 End: 03-15-2025 Follow-up encounter Chicho Carter MD Work Phone: [facility] Start: 03-14-2025 End: 03-14-2025 ambulatory CHICHO CARTER Facility:[facility] Start: 02-14-2025 End: 02-16-2025 Telephone encounter Chicho Carter MD Work Phone: [facility] [place] Comment on above: Results Start: 02-11-2025 End: 02-11-2025 Telephone encounter Michelle Smith BOBBIN STRIPPER.GLASS CALIBRATOR Work Phone: [facility] [place] Comment on above: Insurance Authorizat ion Start: 02-11-2025 End: 02-11-2025 ambulatory MICHELLE Calderón SUPPJORGE Facility:[facility] Start: 02-11-2025 End: 02-11-2025 Office outpatient visit 15 minutes Michelle Smith BOBBIN STRIPPER.GLASS CALIBRATOR Work Phone: [facility] [place] Comment on above: Hypothyroidism, unsp ecified type (Primary Dx); Hypomagnesemia; Type 2 diabetes mellitus with stage 3a chronic kidney disease, with long-term current use of insulin (HCC); Vitamin B12 deficiency; Stage 3a chronic kidney disease (HCC); Primary hypertension; Other hyperlipidemia Start: 02-11-2025 End: 02-11-2025 ambulatory MICHELLE SMITH Facility:[facility] Start: 02-07-2025 End: 02-07-2025 Patient encounter procedure Kristin Byrne PA-C Work Phone: Orthopaedics Comment on above: Bilateral shoulder p ain, unspecified chronicity; Type 2 diabetes mellitus with hyperglycemia, with long-term current use of insulin (HCC); Stage 3a chronic kidney disease (HCC) Start: 02-07-2025 End: 02-07-2025 ambulatory KRISTIN BYRNE Facility:[facility] Start: 01-12-2025 End: 01-12-2025 Telephone encounter Michelle Smith BOBBIN STRIPPER.GLASS CALIBRATOR Work Phone: [facility] [place] Comment on above: Insurance Authorizat ion ([employer]) Start: 12-06-2024 End: 12-06-2024 ambulatory Vivek Lam [facility] Work Phone: Pharmacy Medicine Start: 12-01-2024 End: 12-01-2024 ambulatory Ophelia Rodríguez MA [facility] Start: 12-01-2024 End: 12-01-2024 Patient encounter procedure Ophelia Rodríguez [facility] [place] Comment on above: Population Health Na vigation Outreach (Cologuard Outstanding kits) Start: 11-11-2024 End: 01-11-2025 Follow-up encounter Michelle Smith APRN.GLASS CALIBRATOR Work Phone: [facility] [place] Start: 11-09-2024 End: 11-09-2024 ambulatory MICHELLE A SUPPAN Facility:[facility] Start: 11-08-2024 End: 11-08-2024 ambulatory MICHELLE A SUPPAN Facility:[facility] Start: 11-08-2024 End: 11-08-2024 Subsequent hospital visit by physician Xr [facility] [place] Work Phone: Radiology Comment on above: Bilateral shoulder p ain, unspecified chronicity [M25.511, M25.512] Start: 11-08-2024 End: 11-08-2024 ambulatory MICHELLE A SUPPAN Facility:[facility] Start: 11-08-2024 End: 11-08-2024 Patient encounter procedure Michelle Smith BOBBIN STRIPPER.GLASS CALIBRATOR Work Phone: [facility] [place] Comment on above: Screening for colon cancer (Primary Dx); Type 2 diabetes mellitus with stage 3a chronic kidney disease, with long-term current use of insulin (HCC); Vitamin B12 deficiency; Medicare annual wellness visit, subsequent; Memory changes; Stage 3a chronic kidney disease (HCC); Hyperlipidemia, mixed; Acute recurrent frontal sinusitis; Acute bronchitis, unspecified organism; Essential hypertension; Other hyperlipidemia; Moderate persistent asthma without complication; Gastroesophageal reflux disease, unspecified whether esophagitis present; Hypothyroidism, acquired; Bilateral shoulder pain, unspecified chronicity Start: 09-20-2024 End: 09-20-2024 Refill Cullen Francois PA-C [facility] [place] Comment on above: Refill Request Medication Problem ( Using insulin vials, she has no needles/syringes to administer) Start: 09-13-2024 End: 09-13-2024 Refill Cullen Francois PA-C [facility] Comment on above: Refill Request Start: 08-11-2024 End: 08-16-2024 ambulatory Cullen Francois PA-C [facility] [place] Start: 08-09-2024 End: 08-09-2024 ambulatory Meliza Suh MA [facility] [place] Start: 08-09-2024 End: 08-09-2024 Patient encounter procedure Meliza Suh MA [facility] Comment on above: Population Health Na vigation Outreach ([place] ) Start: 05-11-2024 End: 05-11-2024 ambulatory Yolie Shahericcasio [facility] Work Phone: [facility] Start: 05-11-2024 End: 05-11-2024 Patient encounter procedure Yolie Mazacasio [facility] Work Phone: [facility] Comment on above: Allied Health Visit (Statin Use Review) Start: 05-11-2024 End: 05-12-2024 Telephone encounter Michelle Smith APRN.GLASS CALIBRATOR Work Phone: [facility] Comment on above: Results Start: 05-10-2024 End: 05-10-2024 Office outpatient visit 25 minutes Michelle Smith APRN.GLASS CALIBRATOR Work Phone: [facility] Comment on above: Primary hypertension (Primary Dx); Type 2 diabetes mellitus with stage 3a chronic kidney disease, with long-term current use of insulin (HCC); Screening for depression; Encounter for screening examination for other mental health and behavioral disorders; Moderate persistent asthma without complication; Other specified hypothyroidism; KAM (obstructive sleep apnea) CPAP intolerant; Class 3 severe obesity due to excess calories with serious comorbidity and body mass index (BMI) of 40.0 to 44.9 in adult (HCC); Insomnia, unspecified type Start: 03-22-2024 Refill Ann Garcia on PA-C Work Phone: [facility] Comment on above: Refill Request Start: 02-24-2024 Telephone encounter Myla dupree APRN.GLASS CALIBRATOR Work Phone: [facility] Comment on above: Results Start: 02-23-2024 Refill Ann Garcia on PA-C Work Phone: [facility] Comment on above: Refill Request Start: 02-20-2024 End: 02-20-2024 Subsequent hospital visit by physician [facility] [facility] Work Phone: Radiology Comment on above: Stage 3 chronic kidn ey disease, unspecified whether stage 3a or 3b CKD (HCC) [N18.30] Start: 02-09-2024 Telephone encounter Chicho Carter MD Work Phone: Family Medicine [place] Comment on above: Results Start: 01-28-2024 Telephone encounter Chicho Carter MD Work Phone: [facility] [place] Comment on above: Results Start: 01-27-2024 End: 01-27-2024 Emergency department patient visit [place] Facility:[facility] Start: 01-19-2024 Telephone encounter Ann Francois PA-C Work Phone: Family Medicine [place] Comment on above: Medication Problem Start: 12-19-2023 Refill Ann Garcia on PA-C Work Phone: Family [facility] [place] Comment on above: Refill Request Start: 12-10-2023 Refill Ann Garcia on PA-C Work Phone: Family [facility] [place] Comment on above: Refill Request Start: 12-09-2023 End: 12-09-2023 Subsequent hospital visit by physician [facility] Work Phone: Radiology Comment on above: Inconclusive mammogr am [R92.2] Start: 11-27-2023 Telephone encounter Ann Francois PA-C Work Phone: Family Medicine [place] Comment on above: Patient Update Start: 11-07-2023 Telephone encounter Ann Francois PA-C Work Phone: Family [facility] [place] Comment on above: Medication Request Start: 11-03-2023 End: 11-03-2023 Patient encounter procedure Ann Hampton Francois PA-C Work Phone: Family Medicine [place] Comment on above: Inconclusive mammogr am (Primary Dx); Hypothyroidism, unspecified type; Type 2 diabetes mellitus with stage 3a chronic kidney disease, with long-term current use of insulin (HCC); Gastroesophageal reflux disease, unspecified whether esophagitis present; Adjustment disorder with depressed mood; Class 3 severe obesity due to excess calories with serious comorbidity and body mass index (BMI) of 40.0 to 44.9 in adult ([facility]); Moderate persistent asthma without complication; KAM (obstructive sleep apnea) CPAP intolerant; Other hyperlipidemia; RLS (restless legs syndrome); Stable angina pectoris ([facility]); Primary hypertension; Insomnia, unspecified type Start: 11-01-2023 Telephone encounter Ann Francois PA-C Work Phone: [facility] [place] Comment on above: Results Start: 10-15-2023 Telephone encounter Ann Francois PA-C Work Phone: [facility] [place] Comment on above: PA needed for medica tion Start: 07-23-2023 Telephone encounter Ann Francois PA-C Work Phone: [facility] [place] Comment on above: Patient Question Start: 07-21-2023 Telephone encounter Ann Francois PA-C Work Phone: [facility] [place] Comment on above: Blood Sugar Reading Start: 07-21-2023 End: 07-21-2023 Patient encounter procedure Echocardiogram W[facility] Work Phone: Cardiology Comment on above: Exertional dyspnea Start: 07-08-2023 Telephone encounter Maggy Vasquez MD Work Phone: General Surgery Start: 07-08-2023 End: 07-08-2023 Subsequent hospital visit by physician [facility] Work Phone: Radiology Comment on above: Abnormal ultrasound of breast [R92.8] Start: 07-07-2023 End: 07-07-2023 ambulatory Pulm Lab [facility] Work Phone[facility] Comment on above: Spirometry Start: 07-07-2023 End: 07-07-2023 Patient encounter procedure Pulm Lab [facility] Work Phone: [facility] Start: 06-25-2023 Refill Ann solis PA-C Work Phone: [facility] [place] Comment on above: Med Change Request Start: 06-24-2023 Refill Ann Garcia on PA-C Work Phone: [facility] [place] Comment on above: Med Change Request; Refill Request Start: 06-23-2023 Telephone encounter Ann Francois PA-C Work Phone: [facility] [place] Comment on above: Medication Problem Start: 04-29-2023 Telephone encounter Ann Francois PA-C Work Phone: [facility] [place] Comment on above: Medication Problem Start: 04-21-2023 Refill Ann Garcia on PA-C Work Phone: [facility] [place] Comment on above: Med Change Request Start: 04-17-2023 Refill Ann Garcia on PA-C Work Phone: [facility] Comment on above: Refill Request Start: 04-02-2023 Refill Ann Garcia on PA-C Work Phone: [facility] [place] Comment on above: Med Change Request Insurance Authorizat ion (januvia) Start: 04-01-2023 Refill Ann Garcia on PA-C Work Phone: [facility] [place] Comment on above: Med Change Request Start: 04-01-2023 Telephone encounter Ann Francois PA-C Work Phone: [facility] [place] Comment on above: Orders Start: 04-01-2023 End: 04-01-2023 Patient encounter procedure Ann Francois PA-C Work Phone: [facility] [place] Comment on above: Stable angina pector is (HCC) (Primary Dx); Primary hypertension; Other hyperlipidemia; Moderate persistent asthma without complication; KAM (obstructive sleep apnea) CPAP intolerant; Type 2 diabetes mellitus with stage 3a chronic kidney disease, with long-term current use of insulin (HCC); Hypothyroidism, unspecified type; RLS (restless legs syndrome); Insomnia, unspecified type; Low vitamin D level; Chronic pain of both shoulders; Fatigue, unspecified type; Class 3 severe obesity due to excess calories with serious comorbidity and body mass index (BMI) of 40.0 to 44.9 in adult (HCC) Start: 01-29-2023 Telephone encounter Maggy Vasquez MD Work Phone: General Surgery Comment on above: Results Start: 01-24-2023 ambulatory MAGGY AKERS Facili ty:[facility] Start: 01-06-2023 End: 01-06-2023 Patient encounter procedure Maggy Akers MD Work Phone: General Surgery Comment on above: Abnormal ultrasound of breast (Primary Dx) Start: 01-04-2023 End: 01-04-2023 Emergency department patient visit [facility] Start: 01-03-2023 Refill Ann [employer] Work Phone: [facility] [place] Comment on above: Refill Request Start: 12-31-2022 End: 12-31-2022 Patient encounter procedure Molly [employer] Work Phone: Neurology Comment on above: Restless legs syndro me (Primary Dx); KAM (obstructive sleep apnea) Start: 12-31-2022 End: 12-31-2022 Subsequent hospital visit by physician Diagnostic Mammo [facility] Mammogram Comment on above: Abnormal mammogram [ R92.8] Start: 12-23-2022 Telephone encounter Ann Francois PA-C Work Phone: [facility] Comment on above: Patient Update Start: 11-29-2022 End: 11-29-2022 Patient encounter procedure Saba [employer] Work Phone: Neurology Comment on above: RLS (restless legs s yndrome) (Primary Dx); Insomnia, unspecified type; KAM (obstructive sleep apnea) Start: 11-21-2022 End: 11-21-2022 Patient encounter procedure Ann Francois PA-C Work Phone: [facility] Comment on above: Nipple discharge in female (Primary Dx); Benign breast cyst in female, left; Stable angina pectoris (HCC); Primary hypertension; Other hyperlipidemia; KAM (obstructive sleep apnea) CPAP intolerant; Moderate persistent asthma without complication; Type 2 diabetes mellitus with stage 3a chronic kidney disease, with long-term current use of insulin ([facility]); Hypothyroidism, unspecified type; RLS (restless legs syndrome); Low vitamin D level; Essential hypertension; Type 2 diabetes mellitus with stage 3 chronic kidney disease, with long-term current use of insulin ([facility]) Start: 11-06-2022 Telephone encounter Ann Francois PA-C Work Phone: Family [facility] [place] Comment on above: Patient Question Start: 10-18-2022 End: 10-18-2022 Patient encounter procedure Chicho Carroll MD Work Phone: Neurology Comment on above: Insomnia, unspecifie d type (Primary Dx); RLS (restless legs syndrome); KAM (obstructive sleep apnea) Start: 10-01-2022 End: 10-01-2022 Subsequent hospital visit by physician Diagnostic Mammo [facility] Mammogram Comment on above: Canceled (CC cx: Err or or Template Change) Start: 10-01-2022 Telephone encounter Ann Francois PA-C Work Phone: [facility] [place] Comment on above: Blood Sugar Reading Results Start: 10-01-2022 End: 10-01-2022 Subsequent hospital visit by physician [facility] Work Phone: Radiology Comment on above: Galactorrhea of left breast [N64.3] Start: 10-01-2022 End: 10-01-2022 Subsequent hospital visit by physician Diagnostic Mammo [facility] Mammogram Start: 09-11-2022 Telephone encounter Ann Francois PA-C Work Phone: Family Medicine [place] Comment on above: Results Start: 09-11-2022 End: 09-11-2022 Patient encounter procedure Hyun Archer APRN.CNP Work Phone: OB/Gynecology Comment on above: Galactorrhea of left breast (Primary Dx); Subareolar mass of left breast Start: 09-10-2022 End: 09-10-2022 Patient encounter procedure Ann Francois PA-C Work Phone: Family Medicine [place] Comment on above: Nipple discharge in female (Primary Dx); Type 2 diabetes mellitus with stage 3a chronic kidney disease, with long-term current use of insulin ([facility]); Insomnia, unspecified type Start: 09-09-2022 Refill Ann Garcia on [employer] Work Phone: [facility] [place] Comment on above: Refill Request Start: 08-30-2022 Refill Ann Garcia on [employer] Work Phone: [facility] [place] Comment on above: Med Change Request Start: 08-23-2022 End: 08-23-2022 Patient encounter procedure Ann Francois [employer] Work Phone: [facility] [place] Comment on above: Encounter to [facility] (Primary Dx); Stable angina pectoris ([facility]); Primary hypertension; Other hyperlipidemia; KAM (obstructive sleep apnea) CPAP intolerant; Moderate persistent asthma without complication; Type 2 diabetes mellitus with stage 3a chronic kidney disease, with long-term current use of insulin ([facility]); Hypothyroidism, unspecified type; Class 3 severe obesity due to excess calories with serious comorbidity and body mass index (BMI) of 40.0 to 44.9 in adult ([facility]); Insomnia, unspecified type; RLS (restless legs syndrome); Chronic pain of both shoulders; Multiple gallstones; Inconclusive mammogram; Essential hypertension; Type 2 diabetes mellitus with stage 3 chronic kidney disease, with long-term current use of insulin ([facility]); Low vitamin D level Start: 08-23-2022 Refill Ann Garcia on [employer] Work Phone: [facility] [place] Comment on above: Med Change Request Start: 07-29-2022 End: 07-29-2022 ambulatory Rossana Ramos [facility] Physical Therapy Comment on above: Chronic pain of both shoulders (Primary Dx) Start: 07-26-2022 End: 07-26-2022 Subsequent hospital visit by physician Xr [facility] [place] Work Phone: Radiology Comment on above: Bilateral shoulder p ain, unspecified chronicity [M25.511, M25.512] Start: 07-17-2022 Orders Only Rodrigue Monte MD Work Phone: Orthopaedics Comment on above: Bilateral shoulder p ain, unspecified chronicity (Primary Dx) Start: 07-09-2022 End: 07-09-2022 Patient encounter procedure Juliana Pressley [employer]OBBIN STRIPPERCeliaGLASS CALIBRATOR Work Phone: Internal Medicine [place] Comment on above: Chronic pain of both shoulders (Primary Dx); Essential hypertension; Type 2 diabetes mellitus with stage 3 chronic kidney disease, with long-term current use of insulin (HCC); Hypothyroidism, unspecified type; Type 2 diabetes mellitus with stage 3 chronic kidney disease, with long-term current use of insulin, unspecified whether stage 3a or 3b CKD (HCC) Start: 07-06-2022 End: 07-06-2022 Patient encounter procedure Miguelito Jimenez 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 Work Phone: [facility] Comment on above: Muscle pain (Primary Dx) Start: 07-02-2022 End: 07-02-2022 Subsequent hospital visit by physician Us [facility] [address] Work Phone: Radiology Comment on above: Abnormal screening m ammogram [R92.8] Start: 06-03-2022 Documentation procedure Mammog zara Coordinator [facility] Start: 06-03-2022 Letter encounter Mammography Coordinator [facility] Department Start: 06-03-2022 Telephone encounter Manda jimenez MD Work Phone: Mammography Comment on above: Mammogram Result Conner l Back Start: 06-03-2022 End: 06-03-2022 Subsequent hospital visit by physician Screen Mammo [facility] Mammogram Comment on above: Screening mammogram for breast cancer [Z12.31] Start: 05-15-2022 End: 05-15-2022 Patient encounter procedure Maggy Akers MD Work Phone: General Surgery Comment on above: Status post laparosc opic cholecystectomy (Primary Dx) Start: 05-07-2022 End: 05-07-2022 Admission to same day surgery center [facility] Start: 05-07-2022 End: 05-07-2022 ambulatory [facility] Work Phone: Start: 05-01-2022 End: 05-01-2022 Patient encounter procedure Scar Ceballos MD Work Phone: Internal Medicine [place] Comment on above: Medicare annual well ness visit, subsequent (Primary Dx); Type 2 diabetes mellitus with stage 3a chronic kidney disease, with long-term current use of insulin (HCC); Other hyperlipidemia; Primary hypertension; Moderate persistent asthma without complication; KAM (obstructive sleep apnea); Hypothyroidism, unspecified type Start: 04-08-2022 End: 04-08-2022 Patient encounter procedure Maggy Akers MD Work Phone: General Surgery Comment on above: Multiple gallstones Start: 03-20-2022 End: 03-20-2022 Patient encounter procedure Scar Ceballos MD Work Phone: Internal Medicine [place] Comment on above: Multiple gallstones (Primary Dx); Type 2 diabetes mellitus with stage 3a chronic kidney disease, with long-term current use of insulin (HCC); Primary hypertension Start: 03-12-2022 End: 03-12-2022 Emergency department patient visit [facility] Start: 03-11-2022 End: 03-11-2022 Patient encounter procedure Scar Ceballos MD Work Phone: Internal Medicine [place] Comment on above: Type 2 diabetes deo itus with stage 3a chronic kidney disease, with long-term current use of insulin (HCC) (Primary Dx); Other hyperlipidemia; Stable angina pectoris (HCC); KAM (obstructive sleep apnea); Primary hypertension; Screening mammogram for breast cancer Start: 02-04-2022 End: 02-04-2022 Patient encounter procedure Zuri Rosario OD Work Phone: Ophthalmology Comment on above: Controlled type 2 di abetes mellitus without complication, with long-term current use of insulin (HCC) (Primary Dx); Combined forms of age-related cataract of both eyes; Presbyopia Start: 12-18-2021 Telephone encounter Juliana Pressley APRN.CNP Work Phone: Internal Medicine [place] Comment on above: Insulin no longer co rbandon by insurance Start: 11-26-2021 Telephone encounter Balwinder Braden MD Work Phone: [facility] Comment on above: Results Start: 11-26-2021 End: 11-26-2021 Subsequent hospital visit by physician Xr [facility] [place] Work Phone: Radiology Comment on above: Acute pain of right shoulder [M25.511] Start: 11-24-2021 End: 11-24-2021 Patient encounter procedure Jana FunesDukeDemetrio BETSEY Work Phone: [facility] Comment on above: Bursitis of right sh oulder (Primary Dx); Acute pain of right shoulder Procedures Date Procedure Procedure Detail Performing Clinician Start: 05-10-2025 Adult depression screening assessment Michelle Smith APRN.CNP Work Phone: Start: 04-18-2025 Arthrocentesis aspir&/inj major jt/bursa w/o us Kristin Byrne PA-C Work Phone: Start: 04-01-2025 Ecg routine ecg w/least 12 lds i&r only [facility] Provider Start: 05-10-2024 Adult depression screening assessment Michelle Smith APRN.GLASS CALIBRATOR Work Phone: Start: 12-09-2023 Us breast uni real time with image limited M Memo Francois PA-C Work Phone: Start: 12-09-2023 Digital breast tomosynthesis unilateral M Memo Francois PA-C Work Phone: Start: 07-21-2023 Echo tthrc r-t 2d w/wom-mode compl spec&colr d Meliza Jones PA-C Work Phone: Start: 07-08-2023 Digital breast tomosynthesis bilateral Maggy Akers MD Work Phone: Start: 07-08-2023 Us breast uni real time with image limited Maggy Akers MD Work Phone: Start: 07-07-2023 Nitric oxide gas determination Meliza Jones PA-C Work Phone: Start: 07-07-2023 Brncdilat rspse spmtry pre&post-brncdilat admn Meliza Burrowsone PA-C Work Phone: Start: 12-31-2022 Us breast uni real time with image limited Juliana Older BOBBIN STRIPPER.GLASS CALIBRATOR Work Phone: Start: 12-31-2022 Digital breast tomosynthesis unilateral Juliana Older BOBBIN STRIPPER.GLASS CALIBRATOR Work Phone: Start: 10-01-2022 Us breast uni real time with image limited Hyun Archer BOBBIN STRIPPER.GLASS CALIBRATOR Work Phone: Start: 10-01-2022 MANJULA DIAG W HAILEE LEFT Hyun Archer BOBBIN STRIPPER.CN P Work Phone: Start: 07-26-2022 Radex shoulder complete minimum 2 views Rodrigue Monte MD Work Phone: Start: 07-02-2022 Us breast uni real time with image limited Juliana Older BOBBIN STRIPPER.GLASS CALIBRATOR Work Phone: Start: 07-02-2022 MANJULA DIAG W HAILEE LEFT Juliana Older BOBBIN STRIPPER.GLASS CALIBRATOR Work Phone: Start: 06-03-2022 End: 06-03-2022 Mammography Scar Ceballos MD Work Phone: Start: 05-07-2022 Total cholecystectomy and exploration of common bile duct Start: 05-01-2022 Adult depression screening assessment Scar Ceballos MD Work Phone: Start: 03-12-2022 US scan of gallbladder Start: 03-12-2022 Computed tomography of abdomen and pelvis with intravenous contrast Start: 11-26-2021 Radex shoulder complete minimum 2 views Jana Erwin APRN.GLASS CALIBRATOR Work Phone: Start: 04-03-2021 Adult depression screening assessment Jana Erwin APRN.GLASS CALIBRATOR Work Phone: Start: 02-08-2021 Mammography Jana Erwin APRN.GLASS CALIBRATOR Work Phone: History of cholecystectomy Status post laparoscopic cholecystectomy Maggy Akers MD Work Phone: Plan of Treatment Date Care Activity Detail Author Start: 11-09-2034 Urine microalbumin profile DTaP,Tdap,Td Vaccine (2 - Td or Tdap) [facility] Start: 01-12-2028 Screening for malignant neoplasm of colon [facility] Start: 05-10-2026 Annual PCP Team Chronic Disease Visit Annual PCP Team Chronic Disease Visit [facility] Start: 05-10-2026 Anxiety Screening Anxiety Screening [facility] Start: 05-10-2026 Depression Screening Depression Screening [facility] Start: 05-10-2026 Diabetic foot examination Diabetic Foot Exam [facility] Start: 04-29-2026 Complete blood count Hemoglobin/Hematocrit [facility] Start: 04-29-2026 Creatinine measurement Serum Creatinine [facility] Start: 04-29-2026 Hepatitis B screening Urine Albumin:Creatinine Ratio [facility] Start: 04-29-2026 Hepatitis B surface antibody level LDL Cholesterol [facility] Start: 02-28-2026 Influenza vaccination Influenza Vaccine (#1) [facility] Comment on above: Postponed from 05/02/2025 (Declined at t his time) Start: 02-11-2026 Annual PCP Team Chronic Disease Visit Annual PCP Team Chronic Disease Visit [facility] Start: 02-11-2026 Creatinine measurement Serum Creatinine [facility] Start: 02-11-2026 Hepatitis B surface antibody level LDL Cholesterol [facility] Start: 11-09-2025 Complete blood count Hemoglobin/Hematocrit [facility] Start: 11-09-2025 Creatinine measurement Serum Creatinine [facility] Start: 11-08-2025 Annual PCP Team Chronic Disease Visit Annual PCP Team Chronic Disease Visit [facility] Start: 11-08-2025 BP Controlled (<130/80) BP Controlled (<130/80) [facility] in Start: 11-08-2025 End: 11-08-2025 Patient encounter procedure 11/08/2025 1:00 PM EDT Office Visit [facility] [place] [address] [place], [place] [id number] Michelle Smith APRN.GLASS CALIBRATOR [address] [place], [place] [id number] Medicare Wellness Exam [facility] [place] Comment on above: Medicare Wellness Exam Start: 10-29-2025 Hemoglobin A1c measurement HbA1C [facility] Start: 08-31-2025 Advance Directive Discussion Advance Directive Discussion [facility] Comment on above: Postponed from 09/01/2024 (Postponed To Appropriate Date) Start: 08-13-2025 Hemoglobin A1c measurement HbA1C [facility] Start: 07-25-2025 End: 07-25-2025 Patient encounter procedure 07/25/2025 1:30 PM EST Office Visit Orthopaedics [address] [place], [place] [id number] Kristin Byrne PA-C [address] [place] [address] cortisone shot Orthopaedics Comment on above: cortisone shot Start: 07-10-2025 Glaucoma screening Dilated Retinal Exam [facility] Comment on above: Postponed from 05/06/2025 (Declined at t his time) Start: 06-02-2025 End: 06-02-2025 Patient encounter procedure 06/02/2025 1:30 PM EDT Appointment Mammogram [address] [place] [address] MANJULA SCREENING W HAILEE R/S FROM 05/19 Mammogram Comment on above: MANJULA SCREENING W HAILEE R/S FROM 05/19 Start: 05-19-2025 End: 05-19-2025 Patient encounter procedure 05/19/2025 1:30 PM EDT Appointment Mammogram [address] [place] [address] Encounter for screening mammogram for breast cancer [Z12.31] Mammogram Comment on above: Encounter for screening mammogram for br east cancer [Z12.31] Start: 05-18-2025 End: 05-18-2025 Patient encounter procedure 05/18/2025 2:00 PM EDT Office Visit [facility] [place] [address] [place] [address] Myla Mcadams APRN.GLASS CALIBRATOR [address] [facility] [place] [address] Chest discomfort, weakness since last -see triage note. [facility] [place] Comment on above: Chest discomfort, weakness since last Th ursday-see triage note. Start: 05-11-2025 End: 08-10-2025 CBC panel - Blood by Automated count COMPLETE BLOOD COUNT Lab Routine Vitamin B12 deficiency Expected: 05/11/2025, Expires: 08/10/2025 [facility] Comment on above: Expected: 05/11/2025, Expires: Start: 05-11-2025 End: 08-10-2025 Comprehensive metabolic 2000 panel - Serum or Plasma COMPREHENSIVE METABOLIC PANEL Lab Routine Stage 3a chronic kidney disease (HCC) Expected: 05/11/2025, Expires: 08/10/2025 [facility] Comment on above: Expected: 05/11/2025, Expires: Start: 05-11-2025 End: 08-10-2025 Hemoglobin A1c in Blood HEMOGLOBIN A1C Lab Routine Type 2 diabetes mellitus with stage 3a chronic kidney disease, with long-term current use of insulin (HCC) Expected: 05/11/2025, Expires: 08/10/2025 [facility] Comment on above: Expected: 05/11/2025, Expires: Start: 05-11-2025 End: 08-10-2025 Lipid 1996 panel - Serum or Plasma LIPID PANEL BASIC Lab Routine Hyperlipidemia, mixed Expected: 05/11/2025, Expires: 08/10/2025 [facility] Comment on above: Expected: 05/11/2025, Expires: Start: 05-11-2025 End: 08-10-2025 Microalbumin/Creatinine [Mass Ratio] in Urine ALBUMIN/CREATININE RATIO, URINE Lab Routine Type 2 diabetes mellitus with stage 3a chronic kidney disease, with long-term current use of insulin (HCC) Expected: 05/11/2025, Expires: 08/10/2025 [facility] Comment on above: Expected: 05/11/2025, Expires: Start: 05-11-2025 End: 08-10-2025 Thyrotropin [Units/volume] in Serum or Plasma THYROID STIMULATING HORMONE Lab Routine Type 2 diabetes mellitus with stage 3a chronic kidney disease, with long-term current use of insulin (HCC) Expected: 05/11/2025, Expires: 08/10/2025 [facility] Comment on above: Expected: 05/11/2025, Expires: Start: 05-10-2025 Annual PCP Team Chronic Disease Visit Annual PCP Team Chronic Disease Visit [facility] Start: 05-10-2025 Anxiety Screening Anxiety Screening [facility] Start: 05-10-2025 BP Controlled (<130/80) BP Controlled (<130/80) [facility] in Start: 05-10-2025 Complete blood count Hemoglobin/Hematocrit [facility] Start: 05-10-2025 Creatinine measurement Serum Creatinine [facility] Start: 05-10-2025 Depression Screening Depression Screening [facility] Start: 05-10-2025 Diabetic foot examination Diabetic Foot Exam [facility] Start: 05-10-2025 Hepatitis B screening Urine Albumin:Creatinine Ratio [facility] Start: 05-10-2025 Hepatitis B surface antibody level LDL Cholesterol [facility] Start: 05-10-2025 End: 05-10-2025 Patient encounter procedure 05/10/2025 11:20 AM EDT Office Visit [facility] [address] [place] [address] Michelle Smith, BOBBIN STRIPPER.GLASS CALIBRATOR [address] [place] [address] 6 month exam Family Medicine [facility] Comment on above: 6 month exam Start: 05-06-2025 Glaucoma screening Dilated Retinal Exam [facility] Start: 05-02-2025 Influenza vaccination Influenza Vaccine (#1) [facility] Start: 04-19-2025 End: 04-19-2025 Patient encounter procedure 04/19/2025 1:30 PM EDT Appointment Radiology [address] [place] [address] xray Radiology Comment on above: xray Start: 04-18-2025 End: 04-18-2025 Patient encounter procedure 04/18/2025 1:30 PM EDT Office Visit Orthopaedics [address] [place] [address] Kristin Byrne PA-C [address] [place] [address] cortisone shot Orthopaedics Comment on above: cortisone shot Start: 04-01-2025 End: 04-01-2025 Patient encounter procedure 04/01/2025 2:00 PM EDT Office Visit Cardiology [address] [place] [id number] Estephanie Lopez MD [address] [place] [address] Pulmonary hypertension Cardiology Comment on above: Pulmonary hypertension Start: 02-28-2025 Influenza vaccination Influenza Vaccine (#1) [facility] Comment on above: Postponed from 05/02/2024 (Declined at t his time) Start: 02-28-2025 End: 05-30-2025 Magnesium [Mass/volume] in Serum or Plasma MAGNESIUM Lab Routine Hypomagnesemia Hyperkalemia Expected: 02/28/2025, Expires: 05/30/2025 [facility] Comment on above: Expected: 02/28/2025, Expires: Start: 02-28-2025 End: 05-30-2025 Potassium [Moles/volume] in Serum or Plasma POTASSIUM Lab Routine Hypomagnesemia Hyperkalemia Expected: 02/28/2025, Expires: 05/30/2025 [facility] Work Phone: Comment on above: Expected: 02/28/2025, Expires: Start: 02-11-2025 End: 05-13-2025 Cobalamin (Vitamin B12) [Mass/volume] in Serum or Plasma [facility] Comment on above: Expected: 02/11/2025, Expires: Start: 02-11-2025 End: 05-13-2025 Comprehensive metabolic 2000 panel - Serum or Plasma [facility] Comment on above: Expected: 02/11/2025, Expires: Start: 02-11-2025 End: 05-13-2025 Hemoglobin A1c in Blood [facility] Comment on above: Expected: 02/11/2025, Expires: Start: 02-11-2025 End: 05-13-2025 Lipid 1996 panel - Serum or Plasma [facility] Work Phone: Comment on above: Expected: 02/11/2025, Expires: Start: 02-11-2025 End: 05-13-2025 Magnesium [Mass/volume] in Serum or Plasma [facility] Comment on above: Expected: 02/11/2025, Expires: Start: 02-11-2025 End: 02-11-2025 Patient encounter procedure 02/11/2025 11:40 AM EDT Office Visit Family [facility] [address] [place], [place] [id number] Michelle Smith APRN.GLASS CALIBRATOR [address] [place], [place] [address] 3 month [facility] Comment on above: 3 month Start: 02-09-2025 Hemoglobin A1c measurement HbA1C [facility] Start: 02-07-2025 End: 02-07-2025 Patient encounter procedure 02/07/2025 1:00 PM EDT Office Visit Orthopaedics [address] [place] [address] Kristin Byrne PA-C [address] [place], [place] [id number] Bilateral shoulder pain, unspecified chronicity [M25.511, M25.512] Orthopaedics Comment on above: Bilateral shoulder pain, unspecified chr onicity [M25.511, M25.512] Start: 02-05-2025 Creatinine measurement Serum Creatinine [facility] Start: 01-23-2025 Creatinine measurement Serum Creatinine [facility] Start: 12-07-2024 Covid-19 Vaccine ( season) Covid-19 Vaccine () [facility] Start: 11-08-2024 End: 02-07-2025 Basic metabolic 2000 panel - Serum or Plasma BASIC METABOLIC PANEL Lab Routine Type 2 diabetes mellitus with stage 3a chronic kidney disease, with long-term current use of insulin (HCC) Vitamin B12 deficiency Expected: 11/08/2024, Expires: 02/07/2025 [facility] Comment on above: Expected: 11/08/2024, Expires: Start: 11-08-2024 End: 02-07-2025 CBC W Auto Differential panel - Blood COMPLETE BLOOD COUNT AND DIFFERENTIAL Lab Routine Vitamin B12 deficiency Expected: 11/08/2024, Expires: 02/07/2025 [facility] Comment on above: Expected: 11/08/2024, Expires: Start: 11-08-2024 End: 02-07-2025 Cobalamin (Vitamin B12) [Mass/volume] in Serum or Plasma VITAMIN B12 Lab Routine Vitamin B12 deficiency Expected: 11/08/2024, Expires: 02/07/2025 [facility] Comment on above: Expected: 11/08/2024, Expires: Start: 11-08-2024 End: 02-07-2025 Hemoglobin A1c in Blood HEMOGLOBIN A1C Lab Routine Type 2 diabetes mellitus with stage 3a chronic kidney disease, with long-term current use of insulin (HCC) Expected: 11/08/2024, Expires: 02/07/2025 [facility] Comment on above: Expected: 11/08/2024, Expires: Start: 11-08-2024 End: 02-07-2025 Magnesium [Mass/volume] in Serum or Plasma MAGNESIUM Lab Routine Type 2 diabetes mellitus with stage 3a chronic kidney disease, with long-term current use of insulin (HCC) Expected: 11/08/2024, Expires: 02/07/2025 [facility] Comment on above: Expected: 11/08/2024, Expires: Start: 11-08-2024 End: 02-07-2025 Thyrotropin [Units/volume] in Serum or Plasma THYROID STIMULATING HORMONE Lab Routine Hypothyroidism, acquired Expected: 11/08/2024, Expires: 02/07/2025 [facility] Comment on above: Expected: 11/08/2024, Expires: Start: 11-08-2024 End: 11-08-2024 Patient encounter procedure [facility] Comment on above: 6 month follow up 2024 Medicare Wellne ss Z00.00/ HCC Gap Closure Start: 11-07-2024 Hemoglobin A1c measurement HbA1C [facility] Start: 11-02-2024 Annual PCP Team Chronic Disease Visit Annual PCP Team Chronic Disease Visit [facility] Start: 11-02-2024 BP Controlled (<130/80) BP Controlled (<130/80) [facility] Start: 10-29-2024 Creatinine measurement Serum Creatinine [facility] Start: 09-01-2024 Advance Directive Discussion Advance Directive Discussion [facility] Start: 08-12-2024 Annual PCP Team Chronic Disease Visit Annual PCP Team Chronic Disease Visit [facility] Start: 08-12-2024 BP Controlled (<130/80) BP Controlled (<130/80) [facility] Start: 07-26-2024 Hemoglobin A1c measurement HbA1C [facility] Start: 07-08-2024 Mammography Mammogram Screening [facility] Start: 07-08-2024 Screening for malignant neoplasm of breast Mammogram Screening [facility] Start: 07-03-2024 Annual PCP Team Chronic Disease Visit Annual PCP Team Chronic Disease Visit [facility] Start: 07-03-2024 BP Controlled (<130/80) BP Controlled (<130/80) [facility] Start: 06-04-2024 Hepatitis B Vaccine (1 of 3 - Risk 3-dose series) Hepatitis B Vaccine (1 of 3 - Risk 3-dose series) [facility] Comment on above: Postponed from 2011 (Declined at t his time) Start: 06-02-2024 3 comp foot exam completed Diabetic Foot Exam [facility] Start: 06-02-2024 Annual PCP Team Chronic Disease Visit Annual PCP Team Chronic Disease Visit [facility] Start: 06-02-2024 BP Controlled (<130/80) BP Controlled (<130/80) [facility] Start: 06-02-2024 Diabetic foot examination Diabetic Foot Exam [facility] Start: 05-23-2024 Complete blood count Hemoglobin/Hematocrit [facility] Start: 05-23-2024 Creatinine measurement Serum Creatinine [facility] Start: 05-23-2024 Hepatitis B surface antibody level LDL Cholesterol [facility] Start: 05-23-2024 Serum Creatinine Serum Creatinine [facility] Start: 05-10-2024 End: 08-09-2024 Cobalamin (Vitamin B12) [Mass/volume] in Serum or Plasma [facility] Comment on above: Expected: 05/10/2024, Expires: Start: 05-10-2024 End: 08-09-2024 Comprehensive metabolic 2000 panel - Serum or Plasma [facility] Comment on above: Expected: 05/10/2024, Expires: Start: 05-10-2024 End: 08-09-2024 Hemoglobin A1c in Blood [facility] Comment on above: Expected: 05/10/2024, Expires: Start: 05-10-2024 End: 08-09-2024 LIPID PANEL, NONFASTING [facility] Comment on above: Expected: 05/10/2024, Expires: Start: 05-10-2024 End: 08-09-2024 Magnesium [Mass/volume] in Serum or Plasma [facility] Comment on above: Expected: 05/10/2024, Expires: Start: 05-10-2024 End: 08-09-2024 Microalbumin/Creatinine [Mass Ratio] in Urine [facility] Work Phone: Comment on above: Expected: 05/10/2024, Expires: Start: 05-10-2024 End: 05-10-2024 Patient encounter procedure 05/10/2024 1:00 PM EDT Office Visit Family [facility] [address] [place] [address] Ann Francois PA-C [address] [place] [address] 6 month follow up Family [facility] Comment on above: 6 month follow up Start: 05-02-2024 Covid-19 Vaccine ( season) Covid-19 Vaccine () [facility] Start: 05-02-2024 Covid-19 Vaccine ( season) Covid-19 Vaccine ( season) [facility] Start: 05-02-2024 Influenza vaccination [facility] Start: 04-29-2024 Hemoglobin A1c measurement HbA1C [facility] Start: 04-01-2024 ANNUAL PCP TEAM CHRONIC DISEASE VISIT ANNUAL PCP TEAM CHRONIC DISEASE VISIT [facility] Start: 04-01-2024 BP CONTROLLED (<130/80) BP CONTROLLED (<130/80) [facility] Start: 04-01-2024 HEMOGLOBIN/HEMATOCRIT HEMOGLOBIN/HEMATOCRIT [facility] Start: 04-01-2024 Hepatitis B screening URINE ALBUMIN:CREATININE RATIO [facility] Start: 04-01-2024 SERUM CREATININE SERUM CREATININE [facility] Start: 02-29-2024 Influenza vaccination Influenza Vaccine (#1) [facility] Comment on above: Postponed from 05/02/2023 (Declined at t his time) Start: 02-20-2024 End: 02-20-2024 Patient encounter procedure 02/20/2024 1:00 PM EDT Appointment Radiology [address] [place], [place] [id number] Stage 3 chronic kidney disease, unspecified whether stage 3a or 3b CKD ([facility] Radiology Comment on above: Stage 3 chronic kidney disease, unspecif ied whether stage 3a or 3b CKD ([facility] Start: 02-03-2024 End: 05-04-2024 Hemoglobin A1c in Blood HGB A1C Lab Routine Type 2 diabetes mellitus with stage 3a chronic kidney disease, with long-term current use of insulin ([facility]) Expected: 02/03/2024, Expires: 05/04/2024 [facility] Work Phone: Comment on above: Expected: 02/03/2024, Expires: 4 Start: 02-03-2024 End: 05-04-2024 Thyrotropin [Units/volume] in Serum or Plasma TSH BLD Lab Routine Hypothyroidism, unspecified type Expected: 02/03/2024, Expires: 05/04/2024 [facility] Work Phone: Comment on above: Expected: 02/03/2024, Expires: 4 Start: 01-28-2024 End: 01-27-2025 Basic metabolic 2000 panel - Serum or Plasma BASIC METABOLIC PANEL Lab Routine Renal insufficiency Expected: 01/28/2024, Expires: 01/27/2025 [facility] Work Phone: Comment on above: Expected: 01/28/2024, Expires: 5 Start: 01-28-2024 End: 04-28-2024 Urinalysis complete panel - Urine URINALYSIS, WITH MICROSCOPIC Lab Routine Renal insufficiency Expected: 01/28/2024, Expires: 04/28/2024 [facility] Comment on above: Expected: 01/28/2024, Expires: 4 Start: 01-22-2024 Mammography Mammogram Screening [facility] Start: 01-01-2024 BP CONTROLLED (<130/80) BP CONTROLLED (<130/80) [facility] Start: 12-04-2023 End: 12-02-2024 MG Breast - right Diagnostic for implant [facility] DIAGNOST[facility] RIGHT Radiology Routine Inconclusive mammogram Expected: 12/04/2023, Expires: 12/02/2024 [facility] Work Phone: Comment on above: Expected: 12/04/2023, Expires: 5 Start: 12-04-2023 End: 12-02-2024 US Breast - right limited US BREAST LTD RIGHT Radiology Routine Inconclusive mammogram Expected: 12/04/2023, Expires: 12/02/2024 [facility] Work Phone: Comment on above: Expected: 12/04/2023, Expires: 5 Start: 11-30-2023 BP CONTROLLED (<130/80) BP CONTROLLED (<130/80) [facility] Start: 11-22-2023 ANNUAL PCP TEAM CHRONIC DISEASE VISIT ANNUAL PCP TEAM CHRONIC DISEASE VISIT [facility] Start: 11-22-2023 BP CONTROLLED (<130/80) BP CONTROLLED (<130/80) [facility] Start: 11-21-2023 Hemoglobin A1c measurement HbA1C [facility] Start: 11-21-2023 Hemoglobin A1c/Hemoglobin.total in Blood HbA1C [facility] Start: 11-19-2023 Glaucoma screening Dilated Retinal Exam [facility] Start: 11-19-2023 HEMOGLOBIN/HEMATOCRIT HEMOGLOBIN/HEMATOCRIT [facility] Start: 11-19-2023 Hepatitis B surface antibody level LDL CHOLESTEROL [facility] Start: 11-19-2023 Hepatitis C antibody, confirmatory test DILATED RETINAL EXAM [facility] Start: 11-19-2023 SERUM CREATININE SERUM CREATININE [facility] Start: 11-01-2023 End: 01-31-2024 Basic metabolic 2000 panel - Serum or Plasma BASIC METABOLIC PNL Lab Routine Dehydration Expected: 11/01/2023, Expires: 01/31/2024 [facility] Work Phone: Comment on above: Expected: 11/01/2023, Expires: Start: 10-15-2023 End: 01-14-2024 Basic metabolic 2000 panel - Serum or Plasma BASIC METABOLIC PNL Lab Routine Renal insufficiency Expected: 10/15/2023, Expires: 01/14/2024 [facility] Work Phone: Comment on above: Expected: 10/15/2023, Expires: Start: 10-03-2023 Covid-19 Vaccine () Covid-19 Vaccine () [facility] Start: 09-11-2023 BP CONTROLLED (<130/80) BP CONTROLLED (<130/80) [facility] Start: 09-10-2023 ANNUAL PCP TEAM CHRONIC DISEASE VISIT ANNUAL PCP TEAM CHRONIC DISEASE VISIT [facility] Start: 09-01-2023 Advance Directive Discussion Advance Directive Discussion [facility] Start: 09-01-2023 Behavioral Health Screening Behavioral Health Screening [facility] Start: 09-01-2023 Depression Assessment Depression Assessment [facility] Start: 08-23-2023 ANNUAL PCP TEAM CHRONIC DISEASE VISIT ANNUAL PCP TEAM CHRONIC DISEASE VISIT [facility] Start: 08-23-2023 BP CONTROLLED (<130/80) BP CONTROLLED (<130/80) [facility] Start: 08-23-2023 COVID-19 VACCINE (5 - Booster for Pfizer series) COVID-19 VACCINE (5 - Booster for Pfizer series) [facility] Comment on above: Postponed from 03/28/2022 (Declined at t his time) Start: 08-23-2023 COVID-19 VACCINE (6 - Pfizer series) COVID-19 VACCINE (6 - Pfizer series) [facility] Comment on above: Postponed from 03/28/2022 (Declined at t his time) Start: 08-23-2023 Urine microalbumin profile [facility] Comment on above: Postponed from 1970 (Declined at t his time) Start: 07-09-2023 ANNUAL PCP TEAM CHRONIC DISEASE VISIT ANNUAL PCP TEAM CHRONIC DISEASE VISIT [facility] Start: 06-03-2023 Mammography MAMMOGRAM [facility] Start: 05-24-2023 End: 07-24-2023 CBC W Auto Differential panel - Blood CBC + DIFF Lab Routine Primary hypertension Expected: 05/24/2023, Expires: 07/24/2023 [facility] Work Phone: Comment on above: Expected: 05/24/2023, Expires: 3 Start: 05-24-2023 End: 07-24-2023 Comprehensive metabolic 2000 panel - Serum or Plasma COMP METABOLIC PANEL Lab Routine Primary hypertension Type 2 diabetes mellitus with stage 3a chronic kidney disease, with long-term current use of insulin (HCC) Expected: 05/24/2023, Expires: 07/24/2023 [facility] Work Phone: Comment on above: Expected: 05/24/2023, Expires: 3 Start: 05-24-2023 End: 07-24-2023 Hemoglobin A1c in Blood HGB A1C Lab Routine Type 2 diabetes mellitus with stage 3a chronic kidney disease, with long-term current use of insulin (HCC) Expected: 05/24/2023, Expires: 07/24/2023 [facility] Work Phone: Comment on above: Expected: 05/24/2023, Expires: 3 Start: 05-24-2023 End: 07-24-2023 Lipid 1996 panel - Serum or Plasma LIPID PANEL BASIC Lab Routine Other hyperlipidemia Type 2 diabetes mellitus with stage 3a chronic kidney disease, with long-term current use of insulin (HCC) Expected: 05/24/2023, Expires: 07/24/2023 [facility] Work Phone: Comment on above: Expected: 05/24/2023, Expires: Start: 05-21-2023 Hemoglobin A1c/Hemoglobin.total in Blood HBA1C [facility] Start: 05-15-2023 BP CONTROLLED (<130/80) BP CONTROLLED (<130/80) [facility] Start: 05-02-2023 Influenza vaccination [facility] Start: 05-01-2023 Adult depression screening assessment DEPRESSION SCREENING [facility] Start: 05-01-2023 ANNUAL PCP TEAM CHRONIC DISEASE VISIT ANNUAL PCP TEAM CHRONIC DISEASE VISIT [facility] Start: 05-01-2023 BP CONTROLLED (<130/80) BP CONTROLLED (<130/80) [facility] Start: 04-08-2023 BP CONTROLLED (<130/80) BP CONTROLLED (<130/80) [facility] Start: 04-01-2023 End: 06-01-2023 ALBUMIN/CREAT RATIO RND UR [facility] Work Phone: Comment on above: Expected: 04/01/2023, Expires: Start: 04-01-2023 End: 06-01-2023 C reactive protein [Mass/volume] in Serum or Plasma [facility] Work Phone: Comment on above: Expected: 04/01/2023, Expires: Start: 04-01-2023 End: 06-01-2023 Comprehensive metabolic 2000 panel - Serum or Plasma [facility] Work Phone: Comment on above: Expected: 04/01/2023, Expires: Start: 04-01-2023 End: 06-01-2023 Cortisol [Mass/volume] in Serum or Plasma CORTISOL BLD Lab Routine Fatigue, unspecified type Expected: 04/01/2023, Expires: 06/01/2023 [facility] Work Phone: Comment on above: Expected: 04/01/2023, Expires: 3 Start: 04-01-2023 End: 06-01-2023 Ferritin [Mass/volume] in Serum or Plasma FERRITIN BLD Lab Routine RLS (restless legs syndrome) Expected: 04/01/2023, Expires: 06/01/2023 [facility] Work Phone: Comment on above: Expected: 04/01/2023, Expires: 3 Start: 04-01-2023 End: 06-01-2023 Iron and Iron binding capacity panel - Serum or Plasma IRON + TIBC Lab Routine RLS (restless legs syndrome) Expected: 04/01/2023, Expires: 06/01/2023 [facility] Work Phone: Comment on above: Expected: 04/01/2023, Expires: 3 Start: 03-20-2023 ANNUAL PCP TEAM CHRONIC DISEASE VISIT ANNUAL PCP TEAM CHRONIC DISEASE VISIT [facility] Start: 03-20-2023 BP CONTROLLED (<130/80) BP CONTROLLED (<130/80) [facility] Start: 03-11-2023 3 comp foot exam completed DIABETIC FOOT EXAM [facility] Start: 03-11-2023 ANNUAL PCP TEAM CHRONIC DISEASE VISIT ANNUAL PCP TEAM CHRONIC DISEASE VISIT [facility] Start: 03-11-2023 COLORECTAL CANCER SCREENING COLORECTAL CANCER SCREENING [facility] Comment on above: Postponed from 1996 (Declined at t his time) Start: 03-11-2023 Hepatitis B screening URINE ALBUMIN:CREATININE RATIO [facility] Start: 03-11-2023 Hepatitis B surface antibody level LDL CHOLESTEROL [facility] Start: 03-11-2023 SERUM CREATININE SERUM CREATININE [facility] Start: 02-28-2023 Influenza vaccination INFLUENZA (#1) [facility] Comment on above: Postponed from 05/02/2022 (Declined at t his time) Start: 02-04-2023 Hepatitis C antibody, confirmatory test DILATED RETINAL EXAM [facility] Start: 11-21-2022 End: 01-21-2023 25-hydroxyvitamin D3 [Mass/volume] in Serum or Plasma VITAMIN D 25 HYDROXY Lab Routine Low vitamin D level Expected: 11/21/2022, Expires: 01/21/2023 [facility] Work Phone: Comment on above: Expected: 11/21/2022, Expires: 3 Start: 11-21-2022 End: 01-21-2023 CBC W Auto Differential panel - Blood CBC + DIFF Lab Routine Primary hypertension Stable angina pectoris (HCC) Type 2 diabetes mellitus with stage 3a chronic kidney disease, with long-term current use of insulin (HCC) Type 2 diabetes mellitus with stage 3 chronic kidney disease, with long-term current use of insulin (HCC) Expected: 11/21/2022, Expires: 01/21/2023 [facility] Work Phone: Comment on above: Expected: 11/21/2022, Expires: Start: 11-21-2022 End: 01-21-2023 Comprehensive metabolic 2000 panel - Serum or Plasma COMP METABOLIC PANEL Lab Routine Primary hypertension Stable angina pectoris (HCC) Type 2 diabetes mellitus with stage 3a chronic kidney disease, with long-term current use of insulin (HCC) Type 2 diabetes mellitus with stage 3 chronic kidney disease, with long-term current use of insulin (HCC) Expected: 11/21/2022, Expires: 01/21/2023 [facility] Work Phone: Comment on above: Expected: 11/21/2022, Expires: Start: 11-21-2022 End: 01-21-2023 Hemoglobin A1c in Blood HGB A1C Lab Routine Type 2 diabetes mellitus with stage 3a chronic kidney disease, with long-term current use of insulin (HCC) Type 2 diabetes mellitus with stage 3 chronic kidney disease, with long-term current use of insulin (HCC) Expected: 11/21/2022, Expires: 01/21/2023 [facility] Work Phone: Comment on above: Expected: 11/21/2022, Expires: Start: 11-21-2022 End: 01-21-2023 Lipid 1996 panel - Serum or Plasma LIPID PANEL BASIC Lab Routine Stable angina pectoris (HCC) Type 2 diabetes mellitus with stage 3a chronic kidney disease, with long-term current use of insulin (HCC) Type 2 diabetes mellitus with stage 3 chronic kidney disease, with long-term current use of insulin (HCC) Expected: 11/21/2022, Expires: 01/21/2023 [facility] Work Phone: Comment on above: Expected: 11/21/2022, Expires: Start: 11-21-2022 End: 01-21-2023 Thyrotropin [Units/volume] in Serum or Plasma TSH BLD Lab Routine Hypothyroidism, unspecified type Expected: 11/21/2022, Expires: 01/21/2023 [facility] Work Phone: Comment on above: Expected: 11/21/2022, Expires: 3 Start: 10-29-2022 End: 12-29-2022 CBC panel - Blood by Automated count CBC Lab Routine KAM (obstructive sleep apnea) Expected: 10/29/2022, Expires: 12/29/2022 [facility] Work Phone: Comment on above: Expected: 10/29/2022, Expires: 3 Start: 10-29-2022 End: 12-29-2022 Comprehensive metabolic 2000 panel - Serum or Plasma COMP METABOLIC PANEL Lab Routine Type 2 diabetes mellitus with stage 3a chronic kidney disease, with long-term current use of insulin (HCC) Expected: 10/29/2022, Expires: 12/29/2022 [facility] Work Phone: Comment on above: Expected: 10/29/2022, Expires: Start: 10-29-2022 End: 12-29-2022 Hemoglobin A1c in Blood HGB A1C Lab Routine Type 2 diabetes mellitus with stage 3a chronic kidney disease, with long-term current use of insulin (HCC) Expected: 10/29/2022, Expires: 12/29/2022 [facility] Work Phone: Comment on above: Expected: 10/29/2022, Expires: 3 Start: 10-29-2022 End: 12-29-2022 Lipid 1996 panel - Serum or Plasma LIPID PANEL BASIC Lab Routine Other hyperlipidemia Expected: 10/29/2022, Expires: 12/29/2022 [facility] Work Phone: Comment on above: Expected: 10/29/2022, Expires: 3 Start: 10-29-2022 End: 12-29-2022 Thyrotropin [Units/volume] in Serum or Plasma TSH BLD Lab Routine Hypothyroidism, unspecified type Expected: 10/29/2022, Expires: 12/29/2022 [facility] Work Phone: Comment on above: Expected: 10/29/2022, Expires: 3 Start: 09-11-2022 Hemoglobin A1c/Hemoglobin.total in Blood HBA1C [facility] Start: 09-11-2022 End: 11-11-2022 Lipid 1996 panel - Serum or Plasma LIPID PANEL BASIC Lab Routine Type 2 diabetes mellitus with stage 3a chronic kidney disease, with long-term current use of insulin (HCC) Expected: 09/11/2022, Expires: 11/11/2022 [facility] Work Phone: Comment on above: Expected: 09/11/2022, Expires: 3 Start: 09-10-2022 ANNUAL PCP TEAM CHRONIC DISEASE VISIT ANNUAL PCP TEAM CHRONIC DISEASE VISIT [facility] Start: 09-10-2022 End: 11-10-2022 Bacteria identified in Wound by Culture [facility] Work Phone: Comment on above: Expected: 09/10/2022, Expires: 3 Start: 09-04-2022 HEMOGLOBIN/HEMATOCRIT HEMOGLOBIN/HEMATOCRIT [facility] Start: 09-04-2022 Hepatitis B surface antibody level LDL CHOLESTEROL [facility] Start: 09-04-2022 SERUM CREATININE SERUM CREATININE [facility] Start: 09-01-2022 ADVANCE DIRECTIVE DISCUSSION ADVANCE DIRECTIVE DISCUSSION [facility] Start: 09-01-2022 DEPRESSION ASSESSMENT DEPRESSION ASSESSMENT [facility] Start: 05-07-2022 Catheterization of vein [facility] Work Phone: Start: 05-07-2022 Patient discharge [facility] Work Phone: Start: 05-07-2022 Procedure discontinued [facility] Work Phone: Start: 05-07-2022 Taking patient vital signs [facility] Work Phone: Start: 05-07-2022 [facility] Work Phone: Start: 05-02-2022 Influenza vaccination [facility] Start: 04-11-2022 End: 06-11-2022 Basic metabolic 2000 panel - Serum or Plasma BASIC METABOLIC PNL Lab Routine Type 2 diabetes mellitus with stage 3a chronic kidney disease, with long-term current use of insulin (HCC) Expected: 04/11/2022, Expires: 06/11/2022 [facility] Work Phone: Comment on above: Expected: 04/11/2022, Expires: 2 Start: 04-03-2022 3 comp foot exam completed DIABETIC FOOT EXAM [facility] Start: 04-03-2022 Adult depression screening assessment DEPRESSION SCREENING [facility] Start: 03-28-2022 COVID-19 VACCINE (5 - Booster for Pfizer series) COVID-19 VACCINE (5 - Booster for Pfizer series) [facility] Start: 03-11-2022 End: 05-11-2022 ALBUMIN/CREAT RATIO RND UR [facility] Work Phone: Comment on above: Expected: 03/11/2022, Expires: 2 Start: 03-11-2022 End: 05-11-2022 Hemoglobin A1c in Blood [facility] Work Phone: Comment on above: Expected: 03/11/2022, Expires: 2 Start: 03-04-2022 Hemoglobin A1c/Hemoglobin.total in Blood HBA1C [facility] Start: 02-28-2022 COLORECTAL CANCER SCREENING COLORECTAL CANCER SCREENING [facility] Start: 02-28-2022 FECAL OCCULT BLOOD FECAL OCCULT BLOOD [facility] Start: 02-28-2022 Influenza vaccination INFLUENZA (#1) [facility] Comment on above: Postponed from 05/02/2021 (Declined at t his time) Start: 02-28-2022 Screening for malignant neoplasm of colon [facility] Start: 02-08-2022 Mammography MAMMOGRAM [facility] Start: 11-06-2021 Hepatitis C antibody, confirmatory test DILATED RETINAL EXAM [facility] Start: 09-01-2021 ADVANCE DIRECTIVE DISCUSSION ADVANCE DIRECTIVE DISCUSSION [facility] Start: 09-01-2021 DEPRESSION ASSESSMENT DEPRESSION ASSESSMENT [facility] Start: 07-04-2021 Hepatitis B screening URINE ALBUMIN:CREATININE RATIO [facility] Start: 2011 RSV Vaccine (1 - 1-dose 60+ series) RSV Vaccine (1 - 1-dose 60+ series) [facility] Start: 2011 RSV Vaccine (1 - Risk 60-74 years 1-dose series) RSV Vaccine (1 - Risk 60-74 years 1-dose series) [facility] Start: 1996 COLOGUARD (FIT-DNA) COLOGUARD (FIT-DNA) [facility] Start: 1996 Colonoscopy COLONOSCOPY [facility] Start: [address] COLONOGRAPHY [facility] Start: 1996 Screening for malignant neoplasm of colon [facility] Start: 1996 SIGMOIDOSCOPY SIGMOIDOSCOPY [facility] Start: 1970 Urine microalbumin profile [facility] Start: 1969 BP CONTROLLED (<130/80) BP CONTROLLED (<130/80) [facility] in Basic metabolic 2000 panel - Serum or Plasma BASIC METABOLIC PNL Lab Routine Type 2 diabetes mellitus with stage 3a chronic kidney disease, with long-term current use of insulin (HCC) 03/11/2022 1:12 PM EDT [facility] Work Phone: COLOGUARD COLOGUARD Lab Ro utine Screening for colon cancer Ordered: 11/08/2024 [facility] Work Phone: Comment on above: Ordered: 11/08/2024 End: 09-10-2025 DBT Breast - bilateral screening MANJULA SCREENING W HAILEE Radiology Routine Encounter for screening mammogram for breast cancer 1 Occurrences starting 08/11/2024 until 09/10/2025 [facility] Comment on above: 1 Occurrences starting 08/11/2024 until 09/10/2025 End: 06-09-2026 DBT Breast - bilateral screening MANJULA SCREENING W HAILEE Radiology Routine Encounter for screening mammogram for breast cancer 1 Occurrences starting 05/10/2025 until 06/09/2026 [facility] Work Phone: Comment on above: 1 Occurrences starting 05/10/2025 until 06/09/2026 End: 10-11-2023 Diagnostic mammography computer-aided detcj uni MANJULA DIAGNOSTIC LT Radiology Routine Galactorrhea of left breast Subareolar mass of left breast 1 Occurrences starting 09/11/2022 until 10/11/2023 [facility] Work Phone: Comment on above: 1 Occurrences starting 09/11/2022 until 10/11/2023 ECG COMPLETE ECG COMPLETE ECG 04/01/2025 1:55 PM EDT [facility] End: 04-01-2026 Echocardiography ECHO Cardiology Routine Pulmonary hypertension (HCC) 1 Occurrences starting 04/01/2025 until 04/01/2026 [facility] Work Phone: Comment on above: 1 Occurrences starting 04/01/2025 until 04/01/2026 Lipid 1996 panel - S ernestine or Plasma LIPID PANEL BASIC Lab Routine Type 2 diabetes mellitus with stage 3a chronic kidney disease, with long-term current use of insulin (HCC) 03/11/2022 1:12 PM EDT [facility] Work Phone: Patient Education [facility] Work Phone: Patient referral [facility] Work Phone: End: 04-10-2023 Screening mammography bi 2-view breast inc cad MANJULA SCREENING Radiology Routine Screening mammogram for breast cancer 1 Occurrences starting 03/11/2022 until 04/10/2023 [facility] Work Phone: Comment on above: 1 Occurrences starting 03/11/2022 until 04/10/2023 End: 02-05-2024 US BIOPSY BREAST LEFT US BIOPSY BREAST LEFT Radiology Routine Abnormal ultrasound of breast 1 Occurrences starting 01/06/2023 until 02/05/2024 [facility] Work Phone: Comment on above: 1 Occurrences starting 01/06/2023 until 02/05/2024 End: 10-11-2023 Us breast uni real time with image limited US BREAST LTD LT Radiology Routine Galactorrhea of left breast Subareolar mass of left breast 1 Occurrences starting 09/11/2022 until 10/11/2023 [facility] Work Phone: Comment on above: 1 Occurrences starting 09/11/2022 until 10/11/2023 End: 03-10-2025 US Kidney - bilateral and Urinary bladder US KIDNEY/BLADDER Radiology Routine Stage 3 chronic kidney disease, unspecified whether stage 3a or 3b CKD (HCC) 1 Occurrences starting 02/09/2024 until 03/10/2025 [facility] Work Phone: Comment on above: 1 Occurrences starting 02/09/2024 until 03/10/2025 US Kidney - bilatera l and Urinary bladder US KIDNEY/BLADDER Radiology Routine Stage 3 chronic kidney disease, unspecified whether stage 3a or 3b CKD ([facility]) 02/20/2024 1:29 PM EDT [facility] Work Phone: End: 05-18-2026 XR Lumbar spine 3 Views XR LUMBAR GENERAL 3V AP/LAT/L5-S1 Radiology Routine Lumbar radicular pain 1 Occurrences starting 04/18/2025 until 05/18/2026 [facility] Work Phone: Comment on above: 1 Occurrences starting 04/18/2025 until 05/18/2026 XR Lumbar spine 3 Views XR LUMBA R GENERAL 3V AP/LAT/L5-S1 Radiology Routine Lumbar radicular pain 05/10/2025 12:42 PM EDT [facility] Work Phone: End: 12-08-2025 XR Shoulder - left 2 Views XR SHOULDER LIMITED 2V AP/TRUE AP LEFT Radiology Routine Bilateral shoulder pain, unspecified chronicity 1 Occurrences starting 11/08/2024 until 12/08/2025 [facility] Comment on above: 1 Occurrences starting 11/08/2024 until 12/08/2025 End: 12-08-2025 XR Shoulder - left 3 Views XR SHOULDER GENERAL 3V OR MORE AP/TRUE AP/OTHER LEFT Radiology Routine Bilateral shoulder pain, unspecified chronicity 1 Occurrences starting 11/08/2024 until 12/08/2025 [facility] Comment on above: 1 Occurrences starting 11/08/2024 until 12/08/2025 XR Shoulder - left 3 Views XR SHOULDER GENERAL 3V OR MORE AP/TRUE AP/OTHER LEFT Radiology Routine Bilateral shoulder pain, unspecified chronicity 11/08/2024 2:23 PM EDT [facility] End: 12-08-2025 XR Shoulder - right 3 Views XR SHOULDER GENERAL 3V OR MORE AP/TRUE AP/OTHER RIGHT Radiology Routine Bilateral shoulder pain, unspecified chronicity 1 Occurrences starting 11/08/2024 until 12/08/2025 [facility] Comment on above: 1 Occurrences starting 11/08/2024 until 12/08/2025 XR Shoulder - right 3 Views XR SHOULDER GENERAL 3V OR MORE AP/TRUE AP/OTHER RIGHT Radiology Routine Bilateral shoulder pain, unspecified chronicity 11/08/2024 2:23 PM EDT [facility] End: 08-16-2023 XR SHOULDER GENERAL 3V OR MORE AP/TRUE AP/OTHER LEFT XR SHOULDER GENERAL 3V OR MORE AP/TRUE AP/OTHER LEFT Radiology Routine Bilateral shoulder pain, unspecified chronicity 1 Occurrences starting 07/17/2022 until 08/16/2023 [facility] Work Phone: Comment on above: 1 Occurrences starting 07/17/2022 until 08/16/2023 End: 08-16-2023 XR SHOULDER GENERAL 3V OR MORE AP/TRUE AP/OTHER RIGHT XR SHOULDER GENERAL 3V OR MORE AP/TRUE AP/OTHER RIGHT Radiology Routine Bilateral shoulder pain, unspecified chronicity 1 Occurrences starting 07/17/2022 until 08/16/2023 [facility] Work Phone: Comment on above: 1 Occurrences starting 07/17/2022 until 08/16/2023 End: 12-24-2022 XR SHOULDER [id number] AP/TRUE AP RIGHT XR SHOULDER [id number] AP/TRUE AP RIGHT Radiology STAT Acute pain of right shoulder 1 Occurrences starting 11/24/2021 until 12/24/2022 [facility] Work Phone: Comment on above: 1 Occurrences starting 11/24/2021 until 12/24/2022 [facility] Immunizations Immunization Date Immunization Notes Care Provider Gerhard nicholson 11-09-2024 tetanus toxoid, redu nikia diphtheria toxoid, and acellular pertussis vaccine, adsorbed Ophelia Rodríguez MA [facility] 06-08-2024 COVID-19 vaccine, ag e 12+ yr (SubC Control [facility]) Meliza Suh MA [facility] 06-08-2024 influenza, high dose seasonal, preservative-free Meliza Suh MA [facility] 06-08-2024 influenza virus vacc ine, unspecified formulation Chicho Carter MD Work Phone: [facility] 06-02-2023 COVID-19 vaccine, ag e 12+ yr, season (PFIZER-BIONTECH) NA Francois PA-C Work Phone: [facility] 01-31-2022 COVID-19 original vaccine, age 12+ yr, monovalent (PFIZER-BIONTECH - AYALA TOP) NA Francois PA-C Work Phone: [facility] 01-31-2022 COVID-19 vaccine, ag e 12+ yr (PFIZER-BIONTECH - PURPLE TOP) Zuri Rosario OD Work Phone: [facility] Work Phone: 06-07-2021 COVID-19 original vaccine, age 12+ yr, monovalent (PFIZER-BIONTECH - PURPLE TOP) NA Francois PA-C Work Phone: [facility] 10-30-2020 COVID-19 vaccine, ag e 12+ yr (PFIZER-BIONTECH - PURPLE TOP) Jana Erwin APRN.GLASS CALIBRATOR Work Phone: [facility] Work Phone: 10-09-2020 COVID-19 vaccine, ag e 12+ yr (PFIZER-BIONTECH - PURPLE TOP) Jana Erwin BOBBIN STRIPPER.GLASS CALIBRATOR Work Phone: [facility] Work Phone: 06-26-2020 zoster vaccine recombinant Jana Erwin BOBBIN STRIPPER.GLASS CALIBRATOR Work Phone: [facility] Work Phone: 04-03-2020 zoster vaccine recombinant Jana Erwin BOBBIN STRIPPER.GLASS CALIBRATOR Work Phone: [facility] Work Phone: 07-06-2019 pneumococcal polysaccharide vaccine, 23 valent Jana Erwin BOBBIN STRIPPER.[facility] Work Phone: [facility] Work Phone: 04-21-2017 pneumococcal conjuga te vaccine, 13 valent Jana Praisler-Wood BOBBIN STRIPPER.[facility] Work Phone: [facility] 05-16-2016 influenza virus vacc ine, unspecified formulation NA Alessandro DUENAS Work Phone: [facility] 04-26-2014 pneumococcal polysaccharide vaccine, 23 valent Jana Pollardisler-Wood BOBBIN STRIPPER.[facility] Work Phone: [facility] Work Phone: 07-15-2009 novel influenza-H1N1 -09, preservative-free, injectable Janadanielle Funes-Demetrio BOBBIN STRIPPER.[facility] Work Phone: [facility] Work Phone: 05-29-2009 influenza virus vacc ine, whole virus Jana Prajaler-Wood BOBBIN STRIPPER.[facility] Work Phone: [facility] Work Phone: 07-11-2008 influenza virus vacc ine, whole virus Jana Praisler-Wood BOBBIN STRIPPER.[facility] Work Phone: [facility] Work Phone: 07-20-2007 influenza virus vacc ine, whole virus Jana Praisler-Wood BOBBIN STRIPPER.[facility] Work Phone: [facility] Work Phone: 1950 diphtheria and tetan us toxoids, adsorbed for pediatric use Jana Atulrefugio-Demetrio BOBBIN STRIPPER.[facility] Work Phone: [facility] Work Phone: Payers Date Payer Category Payer Self-pay [id number] 2023 Medicare (Managed Care) WALESKA GALLO [id number] 2023 Private Health Insurance [facility] [id number] 2021 Medicare HUMANA MEDICARE HUMANA MEDICARE PPO [id number] 2021-Present [phone] [address] [address] [place] [address] PPO [id number] 2021 Medicare [id number] 2021 Medicare [id number] Unknown [id number] Unknown [id number] Unknown [id number] Social History Date Type Detail Facility Start: 07-03-2015 End: 04-08-2022 Tobacco smoking status FLIS Never smoked tobacco [facility] Start: 11-24-2021 End: 05-18-2025 Alcohol intake Current non-drinker of alcohol (finding) [facility] Start: 07-03-2015 Tobacco Comment NO smoking in childhood home. SPouse smokes pipe, not around patient. [facility] Start: 1950 Sex Assigned At Not on file [facility] Start: 11-14-2021 End: 07-29-2022 Exposure to SARS-CoV-2 (event) Not sure [facility] Work Phone: Start: 03-12-2022 End: 01-04-2023 Tobacco smoking status NHIS Unknown if ever smoked [facility] Start: 1950 Sex Assigned At Female W [facility] Start: 07-03-2015 End: 04-08-2022 Tobacco use and exposure Smokeless tobacco non-user [facility] Start: 04-08-2022 Tobacco Comment NO smoking in childhood home. Spouse smokes pipe, not around patient. [facility] Start: 05-01-2022 History SDOH Physica l Activity DPW 7 [facility] Start: 05-01-2022 History SDOH Physica l Activity MPS 15 [facility] Start: 05-24-2022 End: 06-03-2022 Exposure to SARS-CoV-2 (event) Unable to assess [facility] Work Phone: Start: 01-06-2023 End: 04-01-2023 History of Social function [facility] Work Phone: Start: 01-06-2023 End: 04-01-2023 Tobacco use panel [facility] Work Phone: Start: 08-02-2012 Adult Depression Screening Assessment 0 [facility] Work Phone: How often to you hav e a drink containing alcohol? Never [facility] Medical Equipment Procedure Code Equipment Code Equipment Original Text Equipment Identifier Dates Total cholecystectomy with exploration of common bile duct CLIP,RAEGAN WILD FDA Start: 05-07-2022 Total cholecystectomy with exploration of common bile duct Ligation clip, synthetic polymer, non-bioabsorbable [id number] FDA Start: 05-07-2022 1 Each once daily. [id number] Start: 09-20-2024 End: 09-20-2025 Goals Date Patient Goal Desired Activity /State Functional Status Date Assessment Result Facility 11-08-2024 Total score [AUDIT-C] 0 11/09/19 12:47 PM Bel Sen MA [facility] 07-06-2019 Are you deaf, or do you have serious difficulty hearing No 07/06/2019 11:25 AM Scar Oviedo MD No [facility] 07-06-2019 Are you blind, or do you have serious difficulty seeing, even when wearing glasses No 07/06/2019 11:25 AM Scar Oviedo MD No [facility] 07-06-2019 Do you have serious difficulty walking or climbing stairs No 07/06/2019 11:25 AM Scar Oviedo MD No [facility] 07-06-2019 Do you have difficul ty dressing or bathing No 07/06/2019 11:25 AM Scar Oviedo MD No [facility] 07-06-2019 Because of a physica l, mental, or emotional condition, do you have difficulty doing errands alone such as visiting a physician's office or shopping No 07/06/2019 11:25 AM Scar Oviedo MD [facility] Mental Status Date Assessment Result Facility 05-07-2022 Cognitive function Voice/Name [facility] Work Phone: 07-06-2019 Because of a physica l, mental, or emotional condition, do you have serious difficulty concentrating, remembering, or making decisions No 07/06/2019 11:25 AM Scar Oviedo MD [facility] Clinical Notes 03-23-2019 to 05-18-2025 Telephone Encounter - Vicky Cee RN - 05/17/2025 11:17 AM EDTTelephone Encounter - Vicky Cee RN - 05/17/2025 11:17 AM Sonia Lamas Tech - 05/10/2025 12:20 PM EDT Note Date & Type Note Facility 05-18-2025 Note HNO ID: [id number] Author: MYLA MCADAMS APRN.GLASS CALIBRATOR Service: ? Author Type: Nurse Practitioner Type: [...] Chronic chest pain attributed to fibromyalgia by tobacco curer 1-2 months ago. - Pain worsened significantly [...] Insomnia 03/19/2016 Moderate persistent asthma without complication ([facility]) 07/11/2015 07/07/15 Methacholine Inhalation Challenge: 35% drop FEV1 at 2.5 mg/mL. Morbid obesity ([facility]) 04/04/2015 Patient has morbid obesity. Multiple gallstones 03/20/2022 Resolved with lap choly 05/07/2022 KAM (obstructive sleep apnea) 09/26/2015 DME: [facility] Other hyperlipidemia 03/23/2019 RLS (restless legs syndrome) 02/15/2019 Stable angina pectoris 06/26/2020 Type 2 diabetes mellitus with stage 3 chronic kidney disease, with long-term current use of insulin ([facility]) 04/04/2015 Dx: age 51. On metformin and [...] 2000 ALLERGIES Atorvastatin, Dust, Jardiance [Empagliflozin], Mold, Revpihs-Tyx-Kpp Reductase Inhibitors, and Victoza [Liraglutide] MEDICATIONS Current [...] HISTORY Adopted: Yes Family history unknown: Yes (more content not included)... [facility] 05-17-2025 Telephone encounter Note Noticed Myla had a cancellation for 120 pm today. Called pt to have her come in today and pt refused. Encouraged her to come in and pt states she can't. She will keep her appt tomorrow. [facility] 05-17-2025 Miscellaneous Notes Noticed Myla had a cancellation for 120 pm today. Called pt to have her come in today and pt refused. Encouraged her to come in and pt states she can't. She will keep her appt tomorrow. Reason for Conversation Medication Problem, Fatigue, and chest pressure Background Pt saw Alaina Smith last Thursday 05/10. Pt was prescribed Topamax, an antibiotic and steroids at that visit. Topamax was for pt's Fibromyalgia and weight loss. Antibiotic and medrol taper pack were for acute sinusitis. 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 [...] it is no worse. Pt saw her tobacco curer on 04/01 for the chest discomfort she [...] do that. Instructed her to call her tobacco curer's office to notify him of this worsened chest discomfort. Pt given an appt with Myla Pema for tomorrow. Offered morning and pt requested [...] times worse than before. Pt saw her tobacco curer in [facility] a couple mons ago for [...] RISK FACTORS: asthma 9. CAUSE: pt states tobacco curer told her that it is probably her fibromyalgia but pt unsure why it is worse since last unless it is from soreness from her severe vomiting. 10. OTHER SYMPTOMS: Pt still having some mild dizziness off and on and complaining of extreme weakness and fatigue. Denies nausea and vomiting, sweating, fever, or cough at this time. See note for c/o n/v & sweating that occurred last the . 11. [...] to do usual activities. 3. ONSET: last the . 4. CAUSE: pt unsure 5. NEW MEDICINES: Yes see note regarding Topamax, antibiotic & steroids. 6. OTHER SYMPTOMS: c/o chest pressure-see other triage ntoe. Williams any fever, cough, nausea or vomiting, or diarrhea. 7. : n/a Negative: [1] MODERATE weakness (i.e., interferes with work, school, normal activities) AND [2] cause unknown (Exceptions: Weakness from acute minor illness or poor fluid intake; weakness is chronic and not worse.) Pt has had since last . Protocols Used Chest Zqed-JHZIO-VH Weakness (Generalized) and [id number] documented in this encounter [facility] 05-17-2025 Telephone encounter Note Reason for Conversation Medication Problem, Fatigue, and chest pressure Background Pt saw Alaina Smith last Thursday 05/10. Pt was prescribed Topamax, an antibiotic and steroids at that visit. Topamax was for pt's Fibromyalgia and weight loss. Antibiotic and medrol taper pack were for acute sinusitis. 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 States she took the first doses of [...] it is no worse. Pt saw her tobacco curer on 04/01 for the chest discomfort she [...] do that. Instructed her to call her tobacco curer's office to notify him of this worsened [...] times worse than before. Pt saw her tobacco curer in [facility] a couple mons ago for [...] RISK FACTORS: asthma 9. CAUSE: pt states tobacco curer told her that it is probably her fibromyalgia but pt unsure why it is worse since last unless it is from soreness from her severe vomiting. 10. OTHER SYMPTOMS: Pt still having some mild dizziness off and on and complaining of extreme weakness and fatigue. Denies nausea and vomiting, sweating, fever, or cough at this time. See note for c/o n/v & sweating that occurred last the . 11. [...] MEDICINES: Yes see note regarding Topamax, antibiotic & steroids. 6. OTHER SYMPTOMS: c/o chest pressure-see other triage ntoe. Williams any fever, cough, nausea or vomiting, or diarrhea. 7. : n/a Negative: [1] MODERATE weakness (i.e., interferes with work, school, normal activities) AND [2] cause unknown (Exceptions: Weakness from acute minor illness or poor fluid intake; weakness is chronic and not worse.) Pt has had since last evening. Protocols Used Chest Qezw-SUPOI-BS Weakness (Generalized) and Mozobmo-NZSFY-HH [facility] 05-10-2025 History of Presen t illness Narrative Radiology Service Progress Note PATIENT NAME: Chloe [...] PATIENT PRESENTS WITH AN IMPLANTABLE OR ATTACHED CORRECTION LIEUTENANT: No RADIOLOGY DEPARTMENT: General X-ray: Exam(s) Completed: Spine X-Ray(s): Lumbar AP / LAT / L5-S1 PERIPHERAL IV DATA: Not applicable SIGNED BY: Daniela Tinsley May 10, 2025 12:41 PM documented in this encounter [facility] 05-10-2025 Note HNO ID: [id number] Author: SONIA SCHMID Tech Service: ? Author Type: Gravity Meter Operator Type: Progress Notes Filed: 05/10/2025 12:42 Note [...] PATIENT PRESENTS WITH AN IMPLANTABLE OR ATTACHED CORRECTION LIEUTENANT: No RADIOLOGY DEPARTMENT: General X-ray: Exam(s) Completed: Spine X-Ray(s): Lumbar AP / LAT / L5-S1 PERIPHERAL IV DATA: Not applicable SIGNED BY: Daniela Tinsley May 10, 2025 12:41 PM [facility] 05-10-2025 Instructions Michelle Smith APRN.CNP - 05/10/2025 11:59 AM EDT - Start topiramate 25 mg twice daily [...] mg/dL, treat it by eating a snack. documented in this encounter [facility] 05-10-2025 Note HNO ID: [id number] Author: MICHELLE SMITH APRN.DEANDER Service: ? Author Type: Nurse Practitioner Type: [...] Recent cardiology evaluation noted good cardiac function; tobacco curer suspects fibromyalgia as the etiology of chest pain. Depression: - Chloe reports anhedonia and feelings of hopelessness since her 's long-term. - has COPD, limiting outdoor activities and [...] Insomnia 03/19/2016 Moderate persistent asthma without complication ([facility]) 07/11/2015 07/07/15 Methacholine Inhalation Challenge: 35% drop FEV1 at 2.5 mg/mL. Morbid obesity ([facility]) 04/04/2015 Patient has morbid obesity. Multiple gallstones 03/20/2022 Resolved with lap choly 05/07/2022 KAM (obstructive sleep apnea) 09/26/2015 DME: [facility] Other hyperlipidemia 03/23/2019 RLS (restless legs syndrome) 02/15/2019 Stable angina pectoris 06/26/2020 Type 2 diabetes mellitus with stage 3 chronic kidney disease, with long-term current use of insulin ([facility]) 04/04/2015 Dx: age 51. On metformin and [...] 2000 ALLERGIES Atorvastatin, Dust, Jardiance [Empagliflozin], Mold, Zgtydtx-Nog-Oye Reductase Inhibitors, and Victoza [Liraglutide] MEDICATIONS Current [...] MULTIVITAMIN ORAL Take by mouth once daily. (more content not included)... [facility] 05-10-2025 History of Presen t illness Narrative This is a 75 year old female [...] Recent cardiology evaluation noted good cardiac function; tobacco curer suspects fibromyalgia as the etiology of chest pain. Depression: - Chloe reports anhedonia and feelings of hopelessness since her 's long-term. - has COPD, limiting outdoor activities and [...] Insomnia 03/19/2016 Moderate persistent asthma without complication ([facility]) 07/11/2015 07/07/15 Methacholine Inhalation Challenge: 35% drop FEV1 at 2.5 mg/mL. Morbid obesity ([facility]) 04/04/2015 Patient has morbid obesity. Multiple gallstones 03/20/2022 Resolved with lap choly 05/07/2022 KAM (obstructive sleep apnea) 09/26/2015 DME: [facility] Other hyperlipidemia 03/23/2019 RLS (restless legs syndrome) 02/15/2019 Stable angina pectoris 06/26/2020 Type 2 diabetes mellitus with stage 3 chronic kidney disease, with long-term current use of insulin ([facility]) 04/04/2015 Dx: age 51. On metformin and [...] 2000 ALLERGIES Atorvastatin, Dust, Jardiance [Empagliflozin], Mold, Zmwkiog-Cnb-Nox Reductase Inhibitors, and Victoza [Liraglutide] MEDICATIONS Current [...] kg (222 lb) SpO2 95% BMI 41.95 kg/m PHYSICAL EXAM: GENERAL: NAD, alert and oriented. [...] enjoy activities due to 's COPD and long-term. 6. Class 3 severe obesity with body mass index (BMI) of 40.0 to 44.9 in adult ([facility]) (E66.813) - Patient is actively trying to lose weight. 7. Type 2 diabetes mellitus with stage 3a chronic kidney disease, with long-term current use of insulin ([facility]) (E11.22) 8. Stage 3a chronic kidney disease ([facility]) (N18.31) - Hemoglobin A1c improved from 7.3 [...] facility. 11. Moderate persistent asthma without complication ([facility]) (J45.40) - Chronic dyspnea and chest pain; [...] or as needed for worsening/no improvement. Michelle Smith CNP [1] Social History Tobacco Use Smoking status: Never Smokeless tobacco: Never Tobacco comments: NO smoking in childhood home. Spouse smokes pipe, not around patient. Vaping Use Vaping status: Never Used Substance Use Topics Alcohol use: No Drug use: No documented in this encounter [facility] 05-04-2025 History of Presen t illness Narrative Chloe Guillory is identified & reviewed as part of population health initiative focused on STAR measures care gaps through data from [employer] (insurer) [facility] as a potential candidate for statin therapy with no prescription claims processes for a statin medication in this calendar year. Patient has: PCP at [facility] - Michelle Smith APRN.CNP Cardiology provider at [facility] - No care bakery team member to display Patient has: ASCVD [...] Craven RPh [facility] Team documented in this encounter [facility] 05-04-2025 Note HNO ID: [id number] Author: NIKOLAS CRAVEN RPh Service: ? Author Type: Pharmacist Type: Progress Notes Filed: 05/04/2025 10:30 Note Text: Chloe Guillory is identified AND reviewed as part of population health initiative focused on STAR measures care gaps through data from [employer] (insurer) [employer] as a potential candidate for statin therapy with no prescription claims processes for a statin medication in this calendar year. Patient has: PCP at [facility] - Michelle Smith APRN.DEANDRE Cardiology provider at [facility] - No care bakery team member to display Patient has: ASCVD [...] Craven RPh [facility] Team [facility] 05-04-2025 Note Patient Outreach ([facility]) CHLOE GUILLORY ([id number]) 1950 F Date Time Provider Department 05/04/25 [facility] During your visit today, we recorded the following information about you: Nikolas Craven RPh 05/04/2025 10:30 AM Signed Chloe Carvalholynn is identified AND reviewed as part of population health initiative focused on STAR measures care gaps through data from [facility] (insurer) [employer] as a potential candidate for statin therapy with no prescription claims processes for a statin medication in this calendar year. Patient has: PCP at [facility] - Michelle Smith APRN.GLASS CALIBRATOR Cardiology provider at [facility] - No care bakery team member to display Patient has: ASCVD [...] MOLD 03/19/2016 12 - Shortness of Breath [id number] REDUCTASE INHIBIT*04/04/2015 17 - Myalgia VICTOZA (LIRAGLUTIDE) [...] Encounter Status:Closed by NIKOLAS CRAVEN on 05/04/25 [facility] 04-18-2025 Note HNO ID: [id number] Author: KRISTIN BYRNE PA-C Service: ? Author Type: Physician Travel Guide Type: Progress Notes Filed: 04/18/2025 13:59 Note Text: Kristin Byrne PA-C Department of Orthopaedics Orthopaedics [address] [facility] [address] Dept: [phone] Dept April 18, 2025 CHIEF COMPLAINT: Follow [...] hyperglycemia, with long-term current use of insulin ([facility]) PLAN: Patient certainly has left shoulder glenohumeral [...] these instructions. Informed Consent Consent Obtained: Verbal [place] Protocol A moment to CARE was completed. [...] IMPRESSION: 1. Osteoarthritis of the bilateral shoulders Advanced Practice Nurse Psychotherapist: JOHNSON Clark (more content not included)... [facility] 04-18-2025 History of Presen t illness Narrative Associated Order(s): Large Joint Arthro/Inj: L subacromial bursa Post-Procedure Diagnose(s): Primary osteoarthritis of left shoulder Kristin Byrne PA-C Department of Orthopaedics Orthopaedics [address] [facility] [address] Dept: [phone] Dept April 18, 2025 CHIEF COMPLAINT: Follow [...] of her left leg mainly the lateral flyod. Pain has been keeping her awake at night, she denies any known injury. She describes the pain as a bruise. ASSESSMENT: M19.012 Primary osteoarthritis of left shoulder (primary encounter diagnosis) M54.16 Lumbar radicular pain E11.65, Z79.4 Type 2 diabetes mellitus with hyperglycemia, with long-term current use of insulin ([facility]) PLAN: Patient certainly has left shoulder glenohumeral [...] these instructions. Informed Consent Consent Obtained: Verbal [place] Protocol A moment to CARE was completed. [...] IMPRESSION: 1. Osteoarthritis of the bilateral shoulders Advanced Practice Nurse Psychotherapist: JOHNSON Transcribe Date/Time: Nov 10 2024 5:27P [...] visit. Allergies: Atorvastatin, Dust, Jardiance [Empagliflozin], Mold, Ajlicvr-Css-Jew Reductase Inhibitors, and Victoza [Liraglutide] ROS: General (negative for fatigue, malaise, weight loss/gain) HEENT (negative for headache, earache, recent vision changes, sinus pain, sore throat) Respiratory (no recent shortness of breath, hemoptysis) CV (negative for chest tightness, palpitations) Musculoskeletal (see HPI) Psych (no depression, anxiety) This note was partially generated using TRIXandTRAX voice recognition system, and there may be some incorrect words, spellings, and punctuation that were not noted in checking the note before saving. Kristin Byrne PA-C AMB ROOMING INTAKE FLOWSHEET DATA Pain Pain Level: 8 Pain Location: (bilateral shoulder) Description: Aching, Dull Duration Amount of Time: (ongoing) Frequency: Continuous Intervention/Comfort measure: Other: See comment (none) Patient would like cortisone injection today into both shoulders. FBS 120's and under. documented in this encounter [facility] 04-18-2025 Note HNO ID: [id number] Author: HYUN MATA MA Service: ? Author Type: Animal Care Giver Type: Progress Notes Filed: 04/18/2025 13:59 Note Text: AMB ROOMING INTAKE FLOWSHEET DATA Pain Pain Level: 8 Pain Location: (bilateral shoulder) Description: Aching, Dull Duration Amount of Time: (ongoing) Frequency: Continuous Intervention/Comfort measure: Other: See comment (none) Patient would like cortisone injection today into both shoulders. FBS 120's and under. [facility] 04-15-2025 Telephone encounter Note Spokew bro pt. Reviewed echo results from provider with pt. [facility] 04-15-2025 Miscellaneous Notes Spokew bro pt. Reviewed echo results from provider with pt. Called pt, no answer. Left VM to call back to review echo results. Echo shows normal heart function with mild valve disease. Can continue to observe / medical therapy documented in this encounter [facility] 04-15-2025 Telephone encounter Note Called pt, no answer. Left VM to call back to review echo results. [facility] 2025 Progress note Formatting of t his note might be different from the original. Echo shows normal heart function with mild valve disease. Can continue to observe / medical therapy [facility] 04-01-2025 Instructions Alvin Schmitz MD - 04/01/2025 2:13 PM EDT We discussed your chest pain and shortness [...] refer you to a dietitian or a golf coach. Wellness coaching can also be done [...] like pressure, or if you develop palpitations. documented in this encounter [facility] 04-01-2025 History of Presen t illness Narrative Salvador Ramirez Department of Cardiovascular Medicine Heart, Vascular and Thoracic [place] [facility] CARDIOLOGY April 01, 2025 [...] a cardiac catheterization 5 years ago at [facility], which was normal. An ECG performed today was also normal. Lab tests from last month showed normal potassium and liver function, with cholesterol levels reported as normal but could be improved. Previous lab results from July of last year indicated slightly elevated cholesterol levels. PAST MEDICAL HISTORY Diagnosis Date Hypertension Hypothyroidism Insomnia 03/19/2016 Moderate persistent asthma without complication ([facility]) 07/11/2015 07/07/15 Methacholine Inhalation Challenge: 35% drop FEV1 at 2.5 mg/mL. Morbid obesity ([facility]) 04/04/2015 Patient has morbid obesity. Multiple gallstones 03/20/2022 Resolved with lap choly 05/07/2022 KAM (obstructive sleep apnea) 09/26/2015 DME: [facility] Other hyperlipidemia 03/23/2019 RLS (restless legs syndrome) 02/15/2019 Stable angina pectoris 06/26/2020 Type 2 diabetes mellitus with stage 3 chronic kidney disease, with long-term current use of insulin ([facility]) 04/04/2015 Dx: age 51. On metformin and [...] Comments Became suicidal Mold Shortness of Breath Lfmvzvl-Akk-Swn Red* Myalgia Victoza [Liraglutid* Other: See Comments [...] lb 8.2 oz) SpO2 96% BMI 42.99 kg/m Last 2 Encounter Wt Readings: Date: Wt: [...] 74 - 99 mg/dL Final Comment: The [place] [employer] Association (ADA) provides guidance for cutoff [...] Standards of Medical Care in Diabetes 2016, [place] [employer]. Diabetes Care. 2016.39(Suppl 1). BUN [...] systolic function is normal. EF = 62 5% (2D biplane) Grade I left ventricular [...] Diagnosis ICD-10-CM 1. Coronary artery disease of [place] heart with stable angina pectoris, unspecified vessel [...] lipid profile. 3. Coronary artery disease of [place] heart with stable angina pectoris, unspecified vessel [...] Type 2 diabetes mellitus without ophthalmic manifestations ([facility]) (E11.9) Diabetes managed with insulin, metformin, and [...] (BMI) of 40.0 to 44.9 in adult ([facility]) (E66.813) Patient reports difficulty with weight loss despite previous attempts. - Discussed dietary modifications, including reducing intake of carbohydrates and fatty foods, and increasing consumption of vegetables, salads, fish, and chicken. - Offered referral to a health and golf coach for additional support in weight management. [...] not tolerate CPAP machine. Recommend dentist or crown blocker consult for mouthgard to improve sleep hygiene. [...] OMS-3, under revision and guidance of Alvin Schmitz MD on April 01, 2025 at 1:53 PM. Alvin Schmitz MD, [facility]. Portfolio Administrator, Dept of Cardiology, [facility]. Staff Decision Analyst, Heart, Vascular and Thoracic [place], [facility]. documented in this encounter [facility] 04-01-2025 Note HNO ID: [id number] Author: ALVIN SCHMITZ MD Service: ? Author Type: Physician Type: Progress Notes Filed: 04/01/2025 14:24 Note Text: Salvador Ramirez Department of Cardiovascular Medicine Heart, Vascular and Thoracic [place] [facility] CARDIOLOGY April 01, 2025 OUTPATIENT VISIT TYPE Established CHIEF COMPLAINT: Patient is following-up for HTN, dyslipidemia, stable angina, obstructive coronary disease. HISTORY OF PRESENT ILLNESS: Ms. Guillory is 74 year old female with a history of CAD, T2DM, hypertension, hypercholesterolemia, and KAM, presenting for evaluation of chest pain and dyspnea. S/P Diagnostic Cardiac Cath 2020 with no stent. Today, Patient has symptoms [...] a cardiac catheterization 5 years ago at [facility], which was normal. An ECG performed today was also normal. Lab tests from last month showed normal potassium and liver function, with cholesterol levels reported as normal but could be improved. Previous lab results from July of last year indicated slightly elevated cholesterol levels. PAST MEDICAL HISTORY Diagnosis Date Hypertension Hypothyroidism Insomnia 03/19/2016 Moderate persistent asthma without complication ([facility]) 07/11/2015 07/07/15 Methacholine Inhalation Challenge: 35% drop FEV1 at 2.5 mg/mL. Morbid obesity ([facility]) 04/04/2015 Patient has morbid obesity. Multiple gallstones 03/20/2022 Resolved with lap choly 05/07/2022 KAM (obstructive sleep apnea) 09/26/2015 DME: [facility] Other hyperlipidemia 03/23/2019 RLS (restless legs syndrome) 02/15/2019 Stable angina pectoris 06/26/2020 Type 2 diabetes mellitus with stage 3 chronic kidney disease, with long-term current use of insulin ([facility]) 04/04/2015 Dx: age 51. On metformin and [...] Comments Became suicidal Mold Shortness of Breath Vnupnxq-Pba-Niv Red* Myalgia Victoza [Liraglutid* Other: See Comments [...] 50 mcg tablet Take 1 tablet by (more content not included)... [facility] 03-15-2025 Miscellaneous Notes Pt notified of results and provider message. Noris Rios LPN Left message to return call Luz Elena Milan MA ----- Message from Chicho Carter MD sent at 03/15/2025 7:08 AM EDT ----- Let her know her repeat labs are ok. documented in this encounter [facility] 03-15-2025 Telephone encounter Note Pt notified of results and provider message. Noris Rios LPN [facility] 03-15-2025 Telephone encounter Note Left message to return call Luz Elena Milan MA [facility] 03-15-2025 Telephone encounter Note ----- Message from Chicho Carter MD sent at 03/15/2025 7:08 AM EDT ----- Let her know her repeat labs are ok. [facility] 02-16-2025 Miscellaneous Notes Pt returned call and given provider's message below with verbalized understanding. Pt agreeable. Called and left a voicemail for the Patient to call back and ask for a nurse to receive the providers message. Sanjuana Echeverria RN Labs are improving. Sugars and lipids are improving. Her mag is low. It looks like Alaina just increased her mag to bid? If so, lets recheck labs in two weeks. Potassium is slightly up. Make sure not using any potassium supplements. Recheck in two weeks. documented in this encounter [facility] 02-16-2025 Telephone encounter Note Pt returned call and given provider's message below with verbalized understanding. Pt agreeable. [facility] 02-14-2025 Telephone encounter Note Called and left a voicemail for the Patient to call back and ask for a nurse to receive the providers message. Sanjuana Echeverria RN [facility] 02-14-2025 Telephone encounter Note Labs are improving. Sugars and lipids are improving. Her mag is low. It looks like Alaina just increased her mag to bid? If so, lets recheck labs in two weeks. Potassium is slightly up. Make sure not using any potassium supplements. Recheck in two weeks. [facility] 02-11-2025 Telephone encounter Note Januvia [address] of alogliptin. [facility] 02-11-2025 Miscellaneous Notes Januvia [address] of alogliptin. [employer] sends fax that alogliptin is not covered by insurance. Asking for change to januvia 100 mg or tradjenta 5 mg? Or would you like prior auth attempted? documented in this encounter [facility] 02-11-2025 Telephone encounter Note [employer] sends fax that alogliptin is not covered by insurance. Asking for change to januvia 100 mg or tradjenta 5 mg? Or would you like prior auth attempted? [facility] 02-11-2025 Instructions Michelle Smith APRN.CNP - 02/11/2025 12:17 PM EDT - Increase your Lantus insulin to 40 [...] oxide has been sent to your pharmacy. documented in this encounter [facility] 02-11-2025 Note HNO ID: [id number] Author: MICHELLE SMITH APRN.CNP Service: ? Author Type: Nurse Practitioner [...] Insomnia 03/19/2016 Moderate persistent asthma without complication ([facility]) 07/11/2015 07/07/15 Methacholine Inhalation Challenge: 35% drop FEV1 at 2.5 mg/mL. Morbid obesity ([facility]) 04/04/2015 Patient has morbid obesity. Multiple gallstones 03/20/2022 Resolved with lap choly 05/07/2022 KAM (obstructive sleep apnea) 09/26/2015 DME: [facility] Other hyperlipidemia 03/23/2019 RLS (restless legs syndrome) 02/15/2019 Stable angina pectoris 06/26/2020 Type 2 diabetes mellitus with stage 3 chronic kidney disease, with long-term current use of insulin ([facility]) 04/04/2015 Dx: age 51. On metformin and [...] 2000 ALLERGIES Atorvastatin, Dust, Jardiance [Empagliflozin], Mold, Bcyvsnr-Xfv-Rsl Reductase Inhibitors, and Victoza [Liraglutide] MEDICATIONS Current [...] tobacco: Never Tobacco comments: NO smoking in [facility] (more content not included)... [facility] 02-11-2025 History of Presen t illness Narrative This is a 74 year old female [...] Insomnia 03/19/2016 Moderate persistent asthma without complication ([facility]) 07/11/2015 07/07/15 Methacholine Inhalation Challenge: 35% drop FEV1 at 2.5 mg/mL. Morbid obesity ([facility]) 04/04/2015 Patient has morbid obesity. Multiple gallstones 03/20/2022 Resolved with lap choly 05/07/2022 KAM (obstructive sleep apnea) 09/26/2015 DME: [facility] Other hyperlipidemia 03/23/2019 RLS (restless legs syndrome) 02/15/2019 Stable angina pectoris 06/26/2020 Type 2 diabetes mellitus with stage 3 chronic kidney disease, with long-term current use of insulin ([facility]) 04/04/2015 Dx: age 51. On metformin and [...] 2000 ALLERGIES Atorvastatin, Dust, Jardiance [Empagliflozin], Mold, Ylxhysu-Esn-Hrs Reductase Inhibitors, and Victoza [Liraglutide] MEDICATIONS Current [...] kg (228 lb) SpO2 95% BMI 43.08 kg/m PHYSICAL EXAM: GENERAL: NAD, alert and oriented. [...] or as needed for worsening/no improvement. Michelle Smith APRN.GLASS CALIBRATOR documented in this encounter [facility] 02-07-2025 Note HNO ID: [id number] Author: KRISTIN BYRNE PA-C Service: ? Author Type: Physician Travel Guide Type: Progress Notes Filed: 02/07/2025 14:33 Note Text: Kristin Byrne PA-C Department of Orthopaedics Orthopaedics [address] [facility] [address] Dept: [phone] Dept February 07, 2025 CHIEF COMPLAINT: New and Pain of the Left Shoulder and Pain and New of the Right Shoulder (Referred by Amy Smith) Bilateral Shoulder Pain: - Chronic bilateral shoulder [...] with long-term current use of insulin (HCC) N18.31 Stage 3a chronic kidney disease (HCC) [...] hyperglycemia, with long-term current use of insulin ([facility]) Stage 3a chronic kidney disease ([facility]), patient to schedule visit as per follow [...] IMPRESSION: 1. Osteoarthritis of the bilateral shoulders Advanced Practice Nurse Psychotherapist: JOHNSON Transcribe Date/Time: Nov 10 2024 5:27P [...] unspecified chronicity TECHNOLOGIST PROVIDED HISTORY (if applicable): radu (more content not included)... [facility] 02-07-2025 History of Presen t illness Narrative Kristin Byrne PA-C Department of Orthopaedics Orthopaedics [address] [facility] [address] Dept: [phone] Dept February 07, 2025 CHIEF COMPLAINT: New and Pain of the Left Shoulder and Pain and New of the Right Shoulder (Referred by Amy Smith) Bilateral Shoulder Pain: - Chronic bilateral shoulder [...] hyperglycemia, with long-term current use of insulin ([facility]) N18.31 Stage 3a chronic kidney disease ([facility]) PLAN: 1. Bilateral shoulder pain, unspecified chronicity [...] hyperglycemia, with long-term current use of insulin ([facility]) (E11.65) - Hemoglobin A1c is 8.6%, indicating poor glycemic control. - Once glycemic control is achieved, will proceed with corticosteroid injections for shoulder pain. 3. Stage 3a chronic kidney disease ([facility]) (N18.31) - Chronic kidney disease limits the use of oral NSAIDs for pain management. - Emphasized the importance of avoiding nephrotoxic medications. - Will monitor renal function closely, especially when considering corticosteroid injections. Will continue to monitor patient for Bilateral shoulder pain, unspecified chronicity Type 2 diabetes mellitus with hyperglycemia, with long-term current use of insulin ([facility]) Stage 3a chronic kidney disease ([facility]), patient to schedule visit as per follow [...] IMPRESSION: 1. Osteoarthritis of the bilateral shoulders Advanced Practice Nurse Psychotherapist: [facility] Transcribe Date/Time: Nov 10 2024 5:27P [...] visit. Allergies: Atorvastatin, Dust, Jardiance [Empagliflozin], Mold, Wdhzmbz-Sdq-Doa Reductase Inhibitors, and Victoza [Liraglutide] ROS: General (negative for fatigue, malaise, weight loss/gain) HEENT (negative for headache, earache, recent vision changes, sinus pain, sore throat) Respiratory (no recent shortness of breath, hemoptysis) CV (negative for chest tightness, palpitations) Musculoskeletal (see HPI) Psych (no depression, anxiety) This note was partially generated using Dragon voice recognition system, and there may be some incorrect words, spellings, and punctuation that were not noted in checking the note before saving. Kristin Byrne PA-C Patient presents with: Left Shoulder - New, Pain Right Shoulder - Pain, New: Referred by Amy SANCHEZ [facility] Risk Screening Do you [...] with her kidneys. X-rays done on 11/08/24 documented in this encounter [facility] 02-07-2025 Note HNO ID: [id number] Author: MAGGY PIZARRO MA Service: ? Author Type: Animal Care Giver Type: Progress Notes Filed: 02/07/2025 14:33 Note Text: Patient presents with: Left Shoulder - New, Pain Right Shoulder - Pain, New: Referred by Amy SANCHEZ [facility] Risk Screening Do you [...] with her kidneys. X-rays done on 11/08/24 [facility] 01-12-2025 Telephone encounter Note PA approved and left vm for patient Authorized from September 01, 2024 to August 31, 2025 Information received electronically from payer Uyen Clemens MA [facility] 01-12-2025 Miscellaneous Notes PA approved and left vm for patient Authorized from September 01, 2024 to August 31, 2025 Information received electronically from angelica Clemens MA Electronic PA submitted Uyen Clemens MA Alyse GUNN sends fax with comment below: Insurance pays for this twice per 365 days then PA is required. VELIA Reilly documented in this encounter [facility] 01-12-2025 Telephone encounter Note Electronic PA submitted Uyen Clemens MA [facility] 01-12-2025 Telephone encounter Note Alyse GUNN sends fax with comment below: Insurance pays for this twice per 365 days then PA is required. VELIA Reilly [facility] 12-06-2024 History of Presen t illness Narrative Primary Care Pharmacy Panel Management This patient has been identified through Specialty Integration/Value-Based Operations Diabetes Registry Review by the primary care pharmacy team. After review, determined that the patient is not a candidate for pharmacy referral at this time due to anticipating A1c will improve on recheck. (Mounjaro was started following most recent A1c; previously controlled). Vivek Lam RPh documented in this encounter [facility] 12-06-2024 Note HNO ID: [id number] Author: VIVEK LAM RPh Service: ? Author [...] recent A1c; previously controlled). Vivek Lam RPh [facility] 12-06-2024 Note Patient Outreach (PM STOW) CHLOE GUILLORY ([id number]) 1950 F Date Time Provider Department 12/06/24 [...] most recent A1c; previously controlled). Vivek Lam [facility] Allergies As of Date: 12/06/2024 Noted Allergy Reaction ATORVASTATIN 11/08/2024 17 - Myalgia Comments: Craps in all muscles DUST 09/26/2015 3 - Cough JARDIANCE (EMPAGLIFLOZIN) 01/27/2018 14 - Other: See Comments Comments: Became suicidal MOLD 03/19/2016 12 - Shortness of Breath ELIPKEH-API-NPS REDUCTASE INHIBIT*04/04/2015 17 - Myalgia VICTOZA (LIRAGLUTIDE) 01/27/2018 14 - Other: See Comments Comments: Thinks she had thyroid issues from it. Date Reviewed: 11/08/2024 Reviewed by: Bel Chowdhury MA - Fully Assessed Prescriptions as of [...] Encounter Status:Closed by VIVEK LAM on 12/06/24 [facility] 12-02-2024 Note HNO ID: [id number] Author: OPHELIA RODRÍGUEZ MA Service: ? Author Type: Animal Care Giver Type: Progress Notes Filed: 12/02/2024 14:03 Note Text: POPULATION HEALTH NAVIGATION OUTREACH Action/FYI Patient called back and she has kit, will complete and return. Reason for Outreach Returned Call/MyChart Patient Contacted: Spoke to patient/parent/or legal guardian Patient identified by name and date of : Yes Returned call/MyChart actions taken: No action required Navigation Signature: Ophelia Rodríguez MA December 02, 2024 2:01 PM [facility] 12-01-2024 Note HNO ID: [id number] Author: OPHELIA RODRÍGUEZ MA Service: ? Author Type: Animal Care Giver Type: Progress Notes Filed: 12/01/2024 13:58 Note Text: POPULATION HEALTH NAVIGATION OUTREACH Action/FYI Left message for patient to call back. Reason for Outreach Care Gap/HCC or Scheduling Wellness Visits Care Gaps due: Colorectal Cancer Screening Patient Contacted: Unable or unnecessary to reach patient: Left message Navigation Signature: Ophelia Rodríguez MA December 01, 2024 1:55 PM [facility] 12-01-2024 History of Presen t illness Narrative POPULATION HEALTH NAVIGATION OUTREACH Action/FYI Left message for patient to call back. Reason for Outreach Care Gap/HCC or Scheduling Wellness Visits Care Gaps due: Colorectal Cancer Screening Patient Contacted: Unable or unnecessary to reach patient: Left message Navigation Signature: Ophelia Rodríguez MA December 01, 2024 1:55 PM documented in this encounter [facility] 12-01-2024 Note Patient Outreach (NE TNAV) CHLOE GUILLORY ([id number]) 1950 F Date Time Provider Department 12/01/24 OPHELIA RODRÍGUEZ During your visit today, we recorded the following information about you: Ophelia Rodríguez MA 12/01/2024 1:58 PM Signed POPULATION HEALTH NAVIGATION OUTREACH Action/FYI Left message for patient to call back. Reason for Outreach Care Gap/HCC or Scheduling Wellness Visits Care Gaps due: Colorectal Cancer Screening Patient Contacted: Unable or unnecessary to reach patient: Left message Navigation Signature: Ophelia Rodríguez MA December 01, 2024 1:55 PM Ophelia Rodríguez MA 12/02/2024 2:03 PM Signed POPULATION HEALTH NAVIGATION OUTREACH Action/FYI Patient called back and she has kit, will complete and return. Reason for Outreach Returned Call/MyChart Patient Contacted: Spoke to patient/parent/or legal guardian Patient identified by name and date of : Yes Returned call/MyChart actions taken: No action required Navigation Signature: Ophelia Rodríguez MA December 02, 2024 2:01 PM Allergies As of Date: 12/01/2024 Noted Allergy Reaction ATORVASTATIN 11/08/2024 17 - Myalgia Comments: Craps in all muscles DUST 09/26/2015 3 - Cough JARDIANCE (EMPAGLIFLOZIN) 01/27/2018 14 - Other: See Comments Comments: Became suicidal MOLD 03/19/2016 12 - Shortness of Breath DHLHLXM-JNP-OCM REDUCTASE INHIBIT*04/04/2015 17 - Myalgia VICTOZA (LIRAGLUTIDE) 01/27/2018 14 - Other: See Comments Comments: Thinks she had thyroid issues from it. Date Reviewed: 11/08/2024 Reviewed by: Bel Chowdhury MA - Fully Assessed Reason for Visit: [...] both shoulders [M25.511, G89.29*07/29/2022 Encounter Status:Closed by SHAUNA OPHELIA on 12/01/24 [facility] 11-12-2024 Telephone encounter Note Cardiology consult placed. [facility] 11-12-2024 Miscellaneous Notes Cardiology consult placed. Patient notified of results and provider's instructions. Patient verbalizes understanding. Patient is asking if provider can put in a referral to cardiology? Lisseth Manuel RN Left message for patient to return call. 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 Some tendinosis or inflammation of the tendons which is more likely the cause of her pain. Lets see what orthopedics has to say. XR SHOULDER GENERAL 3V OR MORE AP/TRUE AP/OTHER RIGHT ----- Message from Michelle Smith sent at 11/11/2024 10:23 AM EDT ----- Please let patient know that her hemoglobin A1c is 8.6. Diabetes is not controlled. I did order Mounjaro, starting dose 2.5 mg weekly. This can be increased. Will likely cause some nausea. If any palpable swelling in the neck or epigastric pain with vomiting, stop the Mounjaro immediately and let us know. Magnesium level is low at 1.6. I am ordering magnesium oxide 400 mg daily. Her B12 level is very low at 223. I have ordered V48-olffpbxnevqosg, 1000 mcg daily. She will likely need to stay on this for life. She has chronic anemia and likely related to the B12. Her kidney function has improved but she still has stage III chronic kidney disease. Make certain to drink 64 ounces of water daily to flush your kidneys. I need to see her in 3 months since we are starting on the Mounjaro. Please move appointment up. Please let patient know that her hemoglobin A1c is 8.6. Diabetes is not controlled. I did order Mounjaro, starting dose 2.5 mg weekly. This can be increased. Will likely cause some nausea. If any palpable swelling in the neck or epigastric pain with vomiting, stop the Mounjaro immediately and let us know. Magnesium level is low at 1.6. I am ordering magnesium oxide 400 mg daily. Her B12 level is very low at 223. I have ordered W15-aubvlcxhixokck, 1000 mcg daily. She will likely need to stay on this for life. She has chronic anemia and likely related to the B12. Her kidney function has improved but she still has stage III chronic kidney disease. Make certain to drink 64 ounces of water daily to flush your kidneys. I need to see her in 3 months since we are starting on the Mounjaro. Please move appointment up. documented in this encounter [facility] 11-12-2024 Telephone encounter Note Patient notified of results and provider's instructions. Patient verbalizes understanding. Patient is asking if provider can put in a referral to cardiology? Lisseth Manuel RN [facility] 11-12-2024 Telephone encounter Note Patient notified of results and provider's instructions. 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 Some tendinosis or inflammation of the tendons which is more likely the cause of her pain. Lets see what orthopedics has to say. Patient verbalizes understanding. Lisseth Manuel RN [facility] 11-12-2024 Miscellaneous Notes Patient notified of results and provider's instructions. 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 Some tendinosis or inflammation of the tendons which is more likely the cause of her pain. Lets see what orthopedics has to say. Patient verbalizes understanding. 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 Some tendinosis or inflammation of the tendons which is more likely the cause of her pain. Lets see what orthopedics has to say. documented in this encounter [facility] 11-11-2024 Telephone encounter Note Left message for patient to return call. 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 Some tendinosis or inflammation of the tendons which is more likely the cause of her pain. Lets see what orthopedics has to say. XR SHOULDER GENERAL 3V OR MORE AP/TRUE AP/OTHER RIGHT [facility] 11-11-2024 Telephone encounter Note ----- Message from Michelle Smith sent at 11/11/2024 10:23 AM EDT ----- Please let patient know that her hemoglobin A1c is 8.6. Diabetes is not controlled. I did order Mounjaro, starting dose 2.5 mg weekly. This can be increased. Will likely cause some nausea. If any palpable swelling in the neck or epigastric pain with vomiting, stop the Mounjaro immediately and let us know. Magnesium level is low at 1.6. I am ordering magnesium oxide 400 mg daily. Her B12 level is very low at 223. I have ordered J40-omgmcphrfsdnpl, 1000 mcg daily. She will likely need to stay on this for life. She has chronic anemia and likely related to the B12. Her kidney function has improved but she still has stage III chronic kidney disease. Make certain to drink 64 ounces of water daily to flush your kidneys. I need to see her in 3 months since we are starting on the Mounjaro. Please move appointment up. [facility] 11-11-2024 Progress note Formatting of t his note might be different from the original. Please let patient know that her hemoglobin A1c is 8.6. Diabetes is not controlled. I did order Mounjaro, starting dose 2.5 mg weekly. This can be increased. Will likely cause some nausea. If any palpable swelling in the neck or epigastric pain with vomiting, stop the Mounjaro immediately and let us know. Magnesium level is low at 1.6. I am ordering magnesium oxide 400 mg daily. Her B12 level is very low at 223. I have ordered B28-jemunsogpbiayx, 1000 mcg daily. She will likely need to stay on this for life. She has chronic anemia and likely related to the B12. Her kidney function has improved but she still has stage III chronic kidney disease. Make certain to drink 64 ounces of water daily to flush your kidneys. I need to see her in 3 months since we are starting on the Mounjaro. Please move appointment up. [facility] 11-11-2024 Progress note Formatting of t his note might be different from the original. 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 Some tendinosis or inflammation of the tendons which is more likely the cause of her pain. Lets see what orthopedics has to say. [facility] 11-08-2024 History of Presen t illness Narrative Radiology Service Progress Note PATIENT NAME: Chloe [...] PATIENT PRESENTS WITH AN IMPLANTABLE OR ATTACHED CORRECTION LIEUTENANT: No RADIOLOGY DEPARTMENT: General X-ray: Exam(s) Completed: Upper Extremity X-Ray(s): Shoulder, AP / TRUE AP / AXILLARY bilateral PERIPHERAL IV DATA: Not applicable SIGNED BY: RT Bishop(R) November 08, 2024 1:57 PM documented in this encounter [facility] 11-08-2024 Note HNO ID: [id number] Author: SHAHRIAR OORZCO RT(Paulo) Service: Radiology Author Type: Technologist Type: Progress [...] PATIENT PRESENTS WITH AN IMPLANTABLE OR ATTACHED CORRECTION LIEUTENANT: No RADIOLOGY DEPARTMENT: General X-ray: Exam(s) Completed: Upper Extremity X-Ray(s): Shoulder, AP / TRUE AP / AXILLARY bilateral PERIPHERAL IV DATA: Not applicable SIGNED BY: RT Bishop(R) November 08, 2024 1:57 PM [facility] 11-08-2024 Note Addended by: MICHELLE SMITH on: 11/08/2024 01:35 PM Modules accepted: Orders [facility] 11-08-2024 Miscellaneous Notes Addended by: MICHELLE SMITH on: 11/08/2024 01:35 PM Modules accepted: Orders documented in this encounter [facility] 11-08-2024 Instructions Michelle Smith APRN.CNP - 11/08/2024 1:08 PM EDT 1) Please take B12 1,000 mcg daily [...] review all the medicines you take, even aowy-auv-ohxchvu medicines. As you get older, the way [...] apply if you have certain medical conditions. documented in this encounter [facility] 11-08-2024 Note HNO ID: [id number] Author: MICHELLE SMITH APRN.CNP Service: ? Author Type: Nurse Practitioner [...] Healthcare Providers Seen: Patient Care Team: Michelle Smith APRN.CNP as PCP - General (Family Medicine) Myla Mcadams APRN.CNP as Trimmer Loader (Family Medicine) Michelle Smith APRN.CNP as Trimmer Loader (Family Medicine) Concerns today: Sputum- nasal drainage, [...] Disease, With Long-Term Current Use of Insulin ([facility]) - 04/04/2015 Comment: Dx: age 51. On [...] 05/07/2022 KAM (obstructive sleep apnea) 09/26/2015 DME: [facility] Other hyperlipidemia 03/23/2019 RLS (restless legs syndrome) 02/15/2019 Stable angina pectoris ([facility]) 06/26/2020 Type 2 diabetes mellitus with stage 3 chronic kidney disease, with long-term current use of insulin ([facility]) 04/04/2015 Dx: age 51. On metformin and [...] mouth once daily. 90 tablet 3 fluticasone-salmeterol (WIX (more content not included)... [facility] 11-08-2024 History of Presen t illness Narrative Images from the original note were not included. Chief Reason For Appointment No chief complaint on file. Chloe Guillory is a 74 year old female who presents for annual exam. Last office visit date: 05/10/2024 Accompanied By self only Have you had any critical events, hospital stays, ER visits, surgeries or procedures since your last visit here in our office: No Specialists/Other Healthcare Providers Seen: Patient Care Team: Michelle Smith APRN.CNP as PCP - General (Family Medicine) Myla Mcadams APRN.CNP as Trimmer Loader (Family Medicine) Michelle Smith APRN.CNP as Trimmer Loader (Family Medicine) Concerns today: Sputum- nasal drainage, [...] Disease, With Long-Term Current Use of Insulin ([facility]) - 04/04/2015 Comment: Dx: age 51. On [...] drop FEV1 at 2.5 mg/mL. Morbid obesity ([facility]) 04/04/2015 Patient has morbid obesity. Multiple gallstones 03/20/2022 Resolved with lap choly 05/07/2022 KAM (obstructive sleep apnea) 09/26/2015 DME: [facility] Other hyperlipidemia 03/23/2019 RLS (restless legs syndrome) [...] Weight Change: Body mass index is 43.84 kg/m . Last Wt 11/08/24 : 105.2 kg (232 [...] percussion tenderness over spine. Lungs: Chest rise & fall symmetrical, Lungs clear to auscultation. Bronchial [...] - Creatinine, gfr - LFTs Lipid: WBC, H&H, Platelets: A1C: Vitamin D: Other: A/P: ASSESSMENT/PLAN: [...] MG TABLET - BENZONATATE 100 MG CAPSULE Discussed treatment plan and patient voices understanding. Patient's questions answered appropriately. Medications and potential side effects were discussed and patient voices understanding. Return to the office as scheduled or as needed for worsening/no improvement. Michelle Smith APRN.CNP Follow Up Plans: 12 m Chloe [...] Functional Observation Was the patient's Timed Up & Go test unsteady or >= 12 seconds? No Advance Care Planning No Advanced directives, has the info- hasn't filled them out Measurements BP 124/66 Pulse 73 Temp 36.2 C (97.2 F) (Right Tympanic) Wt 105.2 kg (232 lb) SpO2 96% BMI 43.84 kg/m Vision Screening: Follows with optometry/ophthalmology Assessment/Plan Medicare annual wellness visit, subsequent (Z00.00) - Counseled on healthy diet and regular exercise - Fall avoidance information provided - Personalized prevention plan provided documented in this encounter [facility] 09-20-2024 Telephone encounter Note Patient returned call and given provider's message below and patient verbalized understanding. Michael Reina RN [facility] 09-20-2024 Miscellaneous Notes Patient returned call and given provider's message below and patient verbalized understanding. Michael Reina RN Called and left a voicemail for the Patient to call back and ask for a nurse to receive the providers message. Sanjuana Echeverria RN sent Please see pt message. Can you Rx the correct syringes and pens needed? Do not see in previous Rx's what was prescribed to this patient? Looked in history and do not see needles or syringes? Last OV: 05/10/24 with JUANITO. Next appt; 11/08/24 with JUANITO. Scarlett Krishnan MA Chloe is calling Cullen Francois PA-C today with concern regarding insulin problem. The patient is using insulin vials, she has no needles/syringes to administer. Please send a prescription to: [facility] in [place] today. Please call the patient once this is completed. Patient has been identified by name and birthdate. Duration of symptoms: N/A Person calling: self Call patient at: on cell [phone] (home) Was an appointment scheduled: No Closing statement: Results or non-symptom based questions: Thank you for calling [facility], your call will be returned within the next business day. Shana Jimenez documented in this encounter [facility] 09-20-2024 Telephone encounter Note Called and left a voicemail for the Patient to call back and ask for a nurse to receive the providers message. Sanjuana Echeverria, RN [facility] 09-20-2024 Telephone encounter Note sent [facility] 09-20-2024 Telephone encounter Note Please see pt message. Can you Rx the correct syringes and pens needed? Do not see in previous Rx's what was prescribed to this patient? Looked in history and do not see needles or syringes? Last OV: 05/10/24 with JUANITO. Next appt; 11/08/24 with JUANITO. Scarlett Krishnan MA [facility] 09-20-2024 Telephone encounter Note Prescription Refill Information The patient has been identified by name and date of : Yes Caregiver verified no other encounters exist for this prescription request: Yes Caregiver confirmed with patient/requestor that no other refills are due, in the near future, with this provider at this time: Yes The last office visit in the department: 05/10/24 Does the patient have a future office visit with this provider/department: Yes Requested Prescriptions Pending Prescriptions Disp Refills levothyroxine (LEVOXYL) 50 mcg tablet 90 tablet 3 Sig: Take 1 tablet by mouth once daily. Take on empty stomach. For Thyroid Shana Maradiaga [facility] September 20, 2024 9:09 AM [facility] 09-20-2024 Miscellaneous Notes Prescription Refill Information The patient has been identified by name and date of : Yes Caregiver verified no other encounters exist for this prescription request: Yes Caregiver confirmed with patient/requestor that no other refills are due, in the near future, with this provider at this time: Yes The last office visit in the department: 05/10/24 Does the patient have a future office visit with this provider/department: Yes Requested Prescriptions Pending Prescriptions Disp Refills levothyroxine (LEVOXYL) 50 mcg tablet 90 tablet 3 Sig: Take 1 tablet by mouth once daily. Take on empty stomach. For Thyroid Shana Jimenez September 20, 2024 9:09 AM documented in this encounter [facility] 09-20-2024 Telephone encounter Note Chloe is calling Cullen Francois PA-C today with concern regarding insulin problem. The patient is using insulin vials, she has no needles/syringes to administer. Please send a prescription to: [facility] in [place] today. Please call the patient once this is completed. Patient has been identified by name and birthdate. Duration of symptoms: N/A Person calling: self Call patient at: on cell [phone] (home) Was an appointment scheduled: No Closing statement: Results or non-symptom based questions: Thank you for calling [facility], your call will be returned within the next business day. Shana Jimenez [facility] 09-13-2024 Telephone encounter Note The following approved medication requests have been transmitted electronically. Requested Prescriptions Pending Prescriptions Disp Refills insulin glargine (LANTUS U-100 INSULIN) 100 unit/mL injection 6 mL 11 Sig: Inject 20 Units subcutaneously daily at bedtime. Michelle Smith APRN.CNP [facility] 09-13-2024 Miscellaneous Notes The following approved medication requests have been transmitted electronically. Requested Prescriptions Pending Prescriptions Disp Refills insulin glargine (LANTUS U-100 INSULIN) 100 unit/mL injection 6 mL 11 Sig: Inject 20 Units subcutaneously daily at bedtime. Michelle Smith APRN.CNP Patient has been identified by name and date of : Yes, Patient phones for refill(s): Requested Prescriptions Pending Prescriptions Disp Refills insulin glargine (LANTUS U-100 INSULIN) 100 unit/mL injection 6 mL 11 Sig: Inject 20 Units subcutaneously daily at bedtime. Date of last office visit in primary care: 05/10/2024 Date of next office visit in primary care: 11/08/2024 Please advise. Thank you. Christina Trujillo. documented in this encounter [facility] 09-13-2024 Telephone encounter Note Patient has been identified by name and date of : Yes, Patient phones for refill(s): Requested Prescriptions Pending Prescriptions Disp Refills insulin glargine (LANTUS U-100 INSULIN) 100 unit/mL injection 6 mL 11 Sig: Inject 20 Units subcutaneously daily at bedtime. Date of last office visit in primary care: 05/10/2024 Date of next office visit in primary care: 11/08/2024 Please advise. Thank you. Christina Trujillo. [facility] [facility] 08-11-2024 Note Patient Outreach (IN TMMN) CHLOE GUILLORY ([id number]) 1950 F Date Time Provider Department 08/11/24 CULLEN FRANCOIS During your visit today, we [...] it. Date Reviewed: 05/10/2024 Reviewed by: Michelle Smith APRN.GLASS CALIBRATOR - Fully Assessed Visit Diagnosis:Encounter for screening mammogram for breast cancer [Z12.31] Order(s):[facility] [[id number]] Order #: [id number] FUTURE Prescriptions as of 08/16/2024 - atorvastatin [...] Encounter Status:Closed by AMILCAR ANNE on 08/16/24 [facility] 08-10-2024 Note HNO ID: [id number] Author: MELIZA SUH MA Service: ? Author Type: Animal Care Giver Type: Progress Notes Filed: 08/10/2024 11:00 Note Text: POPULATION HEALTH NAVIGATION OUTREACH Action/FYI Returning patients call as patient left a detail message on my voicemail in regards to initial outreach [employer]pan[employer]achel Discuss/Due for: 2024 Medicare Wellness, Colorectal Cancer Screening, Mammogram, MyChart Activation HCC Score : .81678 Outcome: 1st attempt - Left Message Reason for Outreach Returned Call/MyChart Patient Contacted: Unable or unnecessary to reach patient: Left message Navigation Signature: Meliza Suh MA August 10, 2024 10:58 AM [facility] 08-09-2024 Note HNO ID: [id number] Author: MELIZA SUH MA Service: ? Author Type: Animal Care Giver Type: Progress Notes Filed: 08/09/2024 09:22 Note Text: POPULATION HEALTH NAVIGATION OUTREACH Action/FYI [employer],Work[employer],[place] Discuss/Due for: 2024 Medicare Wellness, Colorectal Cancer Screening, Mammogram, MyChart Activation HCC Score : .56930 Outcome: 1st attempt - Left Message 2nd [...] Suh MA August 09, 2024 9:11 AM [facility] 08-09-2024 History of Presen t illness Narrative POPULATION HEALTH NAVIGATION OUTREACH Action/Arpan [place] Discuss/Due for: 2024 Medicare Wellness, Colorectal Cancer Screening, Mammogram, MyChart Activation HCC Score : .03910 Outcome: 1st attempt - Left Message 2nd [...] Suh MA August 09, 2024 9:11 AM documented in this encounter [facility] 08-09-2024 Note Patient Outreach (NE TNAV) CHLOE GUILLORY ([id number]) 1950 F Date Time Provider Department 08/09/24 MELIZA SUH During your visit today, we recorded the following information about you: Meliza Suh MA 08/09/2024 9:22 AM Signed POPULATION HEALTH NAVIGATION OUTREACH Action/FYI Arpan [place] Discuss/Due for: 2024 Medicare Wellness, Colorectal Cancer Screening, Mammogram, MyChart Activation HCC Score : .43310 Outcome: 1st attempt - Left Message 2nd [...] Screening, Mammogram, MyChart Activation HCC Score : .26217 Outcome: 1st attempt - Left Message Reason [...] it. Date Reviewed: 05/10/2024 Reviewed by: Michelle Smith APRN.GLASS CALIBRATOR - Fully Assessed Reason for Visit: Population [...] Encounter Status:Closed by MELIZA SUH on 08/09/24 [facility] 05-12-2024 Telephone encounter Note Pt returned call and given provider's message below with verbalized understanding. Patient agreeable. [facility] 05-12-2024 Miscellaneous Notes Pt returned call and given provider's message below with verbalized understanding. Patient agreeable. Message left for pt to call back for results. Giselle Dinh MA Please let pt. Know that LDL is too high for a diabetic. I am recommending starting atorvastatin 20 mg daily. Kidneys show chronic kidney disease stage III. Mild anemia is likely from kidneys and B 12 being low. Please take zkou-scd-qozhcjn B 12 1,000 mcg daily.. We checked iron level and iron stores and they are fine. Remember to drink 64 oz. Of water daily. Hemoglobin A1c shows blood sugars have been stable. Magnesium is slightly decrease at 1.6- I would like you to start taking mag- oxide upok-efb-mrbdyzr daily. documented in this encounter [facility] 05-11-2024 Telephone encounter Note Message left for pt to call back for results. Giselle Dinh MA [facility] 05-11-2024 Telephone encounter Note Please let pt. Know that LDL is too high for a diabetic. I am recommending starting atorvastatin 20 mg daily. Kidneys show chronic kidney disease stage III. Mild anemia is likely from kidneys and B 12 being low. Please take cvzx-gam-xzcpuen B 12 1,000 mcg daily.. We checked iron level and iron stores and they are fine. Remember to drink 64 oz. Of water daily. Hemoglobin A1c shows blood sugars have been stable. Magnesium is slightly decrease at 1.6- I would like you to start taking mag- oxide mymn-ulf-afoynmc daily. [facility] 05-11-2024 History of Presen t illness Narrative Pt chart reviewed as part of population health initiative focused on statin use in patients with diabetes (DM) or cardiovascular disease (CVD). Chloe Guillory is identified through data from [employer] (insurer) as a potential candidate for statin therapy with no prescriptions claims processed for a statin medication in this calendar year. Chart Review The following case components were reviewed for current or historic statin use: Confirmed diabetes and or CVD: Yes Current/Active med list includes a statin: No IF YES, Last order date and quantity: Last pharmacy fill date: Per Epic: , Per pharmacy phone call: IF NO, reason identified (contraindication, intolerance, exclusion, etc.): atorvastatin 10 mg last prescribed in 2019; however, per last pcp note 11/03/23 pt currently on statin ALLERGIES Allergen Reactions Dust Cough Jardiance [Empaglif* Other: See Comments Became suicidal Mold Shortness of Breath Victoza [Liraglutid* Other: See Comments Thinks she had thyroid issues from it. PAST MEDICAL HISTORY No date: Hypertension No date: Hypothyroidism 03/19/2016: Insomnia 07/11/2015: Moderate persistent asthma without complication Comment: 07/07/15 Methacholine Inhalation Challenge: 35% drop FEV1 at 2.5 mg/mL. 04/04/2015: Morbid obesity (HCC) Comment: Patient has morbid obesity. 03/20/2022: Multiple gallstones Comment: Resolved with lap choly 05/07/2022 09/26/2015: KAM (obstructive sleep apnea) Comment: DME: [facility] 03/23/2019: Other hyperlipidemia 02/15/2019: RLS (restless legs syndrome) 06/26/2020: Stable angina pectoris (HCC) 04/04/2015: Type 2 diabetes mellitus with stage 3 chronic kidney disease, with long-term current use of insulin ([facility]) Comment: Dx: age 51. On metformin and victoza which she does not think works well for her lately She was started on jardiance which made her have suicidal ideation So she stopped the medication. Cholesterol, Total (mg/dL) Date Value 05/23/2023 205 09/04/2021 181 Total Cholesterol, Nonfasting (mg/dL) Date Value 05/10/2024 206 HDL Cholesterol (mg/dL) Date Value 05/23/2023 51 09/04/2021 51 HDL Cholesterol, Nonfasting (mg/dL) Date Value 05/10/2024 52 LDL Cholesterol (mg/dL) Date Value 09/04/2021 112 LDL Cholesterol, Nonfasting (mg/dL) Date Value 05/10/2024 116 Triglyceride (mg/dL) Date Value 05/23/2023 145 09/04/2021 90 Triglycerides, Nonfasting (mg/dL) Date Value 05/10/2024 191 Discussion on potential statin use consists of - Given diagnosis of diabetes, patient would benefit from moderate-intensity statin therapy Outcome of review: Pending outreach to provider Yolie Esposito, PharmD, BCACP Primary Care Clinical Sprinkler Worker documented in this encounter [facility] 05-11-2024 Telephone encounter Note Labs will be added. Giselle Dinh MA [facility] 05-11-2024 Miscellaneous Notes Labs will be added. Giselle Dinh MA Please see if lab can run an iron and ferritin off blood that was drawn yesterday? documented in this encounter [facility] 05-11-2024 Telephone encounter Note Please see if lab can run an iron and ferritin off blood that was drawn yesterday? [facility] 05-10-2024 Instructions Michelle Smith APRN.CNP - 05/10/2024 1:20 PM EDT 1) Labs today 2) Increase Lantus to 20 units in evening, call with blood sugars in 2 weeks 3) Follow up in 6 months documented in this encounter [facility] 05-10-2024 History of Presen t illness Narrative This is a 74 year old female who presents today with: Patient presents with: 6 Month Exam HISTORY OF PRESENT ILLNESS: Chloe Guillory is a 74 year old female. Patient presents with: 6 Month Exam Back snaps, crackles, and pops. Some aching in low back. Treated effectively with biofreeze. Once a year she will get into trouble for a few days. DM: Reports overall feeling well. Medication side effects: Unable to get Trulicity. Rebdonavonus is almost $800. Home sugar checks: Mornings < 140, evening 200-300 Hypoglycemic spells: No. Watching diet: No. Unexpected weight loss: No. Polyuria, polydipsia: No. Vision Changes: No. Just had eye exam. Foot lesions or numbness or pain: No. PAST MEDICAL HISTORY: PAST MEDICAL HISTORY No date: Hypertension No date: Hypothyroidism 03/19/2016: Insomnia 07/11/2015: Moderate persistent asthma without complication Comment: 07/07/15 Methacholine Inhalation Challenge: 35% drop FEV1 at 2.5 mg/mL. 04/04/2015: Morbid obesity (HCC) Comment: Patient has morbid obesity. 03/20/2022: Multiple gallstones Comment: Resolved with lap choly 05/07/2022 09/26/2015: KAM (obstructive sleep apnea) Comment: DME: [facility] 03/23/2019: Other hyperlipidemia 02/15/2019: RLS (restless legs syndrome) 06/26/2020: Stable angina pectoris (HCC) 04/04/2015: Type 2 diabetes mellitus with stage 3 chronic kidney disease, with long-term current use of insulin (HCC) Comment: Dx: age 51. On metformin and victoza which she does not think works well for her lately She was started on jardiance which made her have suicidal ideation So she stopped the medication. PAST SURGICAL HISTORY 1956: APPENDECTOMY 2000: LAPAROSCOPY DIAGNOSTIC 07/14/2020: LEFT HEART CATH,PERCUTANEOUS Comment: wnl 05/07/2022: REMOVAL GALLBLADDER 1957: TONSILLECTOMY AND ADENOIDECTOMY HX 2000: TOTAL ABDOMINAL HYSTERECT W/WO RMVL TUBE OVARY ALLERGIES Dust, Jardiance [Empagliflozin], Mold, and Victoza [Liraglutide] MEDICATIONS Current Outpatient Medications Medication Sig fenofibrate nanocrystallized (TRICOR) 145 mg tablet Take 1 tablet by mouth once daily. traZODone (DESYREL) 150 mg tablet Take 1 tablet by mouth daily at bedtime. fluticasone-salmeterol (WIXELA INHUB) 250-50 mcg/dose inhaler Inhale 1 Puff as instructed two times a day. Rinse and gargle mouth with water after each use. dilTIAZem HCl 360 mg 24 hr capsule Take 1 capsule by mouth once daily. venlafaxine ER (EFFEXOR XR) 75 mg 24 hr capsule Take 1 capsule by mouth once daily. Weaning: alternate 75mg every other day with 150mg x 1 week, then 75mg daily x 1 week, the 75mg every other day x 1 week metFORMIN (GLUCOPHAGE) 500 mg tablet Take 2 tablets by mouth two times a day with meals. omeprazole (PRILOSEC) 40 mg capsule Take 1 capsule by mouth once daily. insulin degludec (TRESIBA FLEXTOUCH) 100 unit/mL (3 mL) injection pen Inject 15 Units subcutaneously daily at bedtime. levothyroxine (LEVOXYL) 50 mcg tablet Take 1 tablet by mouth once daily. Take on empty stomach. For Thyroid olmesartan (BENICAR) 20 mg tablet Take 1 tablet by mouth once daily. albuterol HFA (PROVENTIL HFA, VENTOLIN HFA) 90 mcg/actuation inhaler Inhale 2 Puffs as instructed four times a day as needed for wheezing/shortness of breath. FOR WHEEZING AND SHORTNESS OF BREATH. MULTIVITAMIN ORAL Take by mouth once daily. semaglutide (RYBELSUS) 14 mg tablet Take 1 tablet (14 mg) by mouth daily before breakfast. Take 30 minutes before the first food, beverage, or other oral medications of the day with no more than 4 ounces of plain water (Patient not taking: Reported on 05/10/2024) No current facility-administered medications for this visit. FAMILY HISTORY Adopted: Yes Family history unknown: Yes Social History Tobacco Use Smoking status: Never Smokeless tobacco: Never Tobacco comments: NO smoking in childhood home. Spouse smokes pipe, not around patient. Vaping Use Vaping status: Never Used Substance Use Topics Alcohol use: No Drug use: No REVIEW OF SYSTEMS GENERAL: No weight loss, malaise or fevers/ + chills- hot flashes HEENT: Negative for frequent or significant headaches, No changes in hearing or vision. NECK: Negative for lumps, goiter, pain and significant neck swelling RESPIRATORY: Negative for cough, hemoptysis, wheezing, always dyspnea or shortness of breath, inhaler affects voice CARDIOVASCULAR: Always for chest pain- with exertion, left leg trace swelling if she eats salt, no orthopnea, + palpitations GI: No nausea, no vomiting, Some diarrhea with metformin/no constipation. No hematochezia/melena. No heartburn or reflux symptoms takes omeprazole. : No history of dysuria, frequency or incontinence MUSCULOSKELETAL: Negative for joint pain or swelling. SKIN: Negative for lesions, rash, and itching, except feet itch ENDOCRINE: Negative for cold or heat intolerance, polyuria, polydipsia and goiter NEURO: No history of headaches, syncope, paralysis, seizures or tremors MOOD: Negative for depression, anxiety, or suicidal ideation. EXAM: BP 120/62 Pulse 82 Resp 16 Wt 97.1 kg (214 lb) SpO2 97% BMI 40.43 kg/m PHYSICAL EXAM: Physical Exam Vitals reviewed. Constitutional: Appearance: Normal appearance. She is obese. HENT: Head: Normocephalic. Neck: Vascular: No carotid bruit. Cardiovascular: Rate and Rhythm: Normal rate and regular rhythm. Pulses: Normal pulses. Heart sounds: Normal heart sounds. Pulmonary: Effort: Pulmonary effort is normal. Breath sounds: Normal breath sounds. Abdominal: General: Bowel sounds are normal. Palpations: Abdomen is soft. Musculoskeletal: General: No swelling. Normal range of motion. Right lower leg: No edema. Left lower leg: No edema. Lymphadenopathy: Cervical: No cervical adenopathy. Skin: General: Skin is warm and dry. Neurological: General: No focal deficit present. Mental Status: She is alert and oriented to person, place, and time. Psychiatric: Mood and Affect: Mood normal. Behavior: Behavior normal. LABS: reviewed recent ASSESSMENT/PLAN: 1. Primary hypertension - ICD9: 401.9, ICD10: I10 (primary diagnosis) - Controlled - Recommend home blood pressure monitoring, to bring results to next visit - Encouraged sodium restriction, DASH or Mediterranean diet - Recommend regular aerobic exercise 2. Type 2 diabetes mellitus with stage 3a chronic kidney disease, with long-term current use of insulin (HCC) - ICD9: 250.40, 585.3, V58.67, ICD10: E11.22, N18.31, Z79.4 - Controlled - Increase insulin 20 units - eGFR: 47 Due for labs - Counseled on avoiding NSAIDs, adequate hydration - INSULIN GLARGINE (U-100) 100 UNIT/ML SUBCUTANEOUS SOLUTION increased to 20 units, await BSS - CKD IIIa- check CMP and urine for MA/C ratio 3. Screening for depression - ICD9: V79.0, ICD10: Z13.31 No depression 4. Encounter for screening examination for other mental health and behavioral disorders - ICD9: V79.8, ICD10: Z13.39 Normal 5. Moderate persistent asthma without complication - ICD9: 493.90, ICD10: J45.40 - Mild intermittent asthma stable - Avoidance of triggers recommended 6. Other specified hypothyroidism - ICD9: 244.8, ICD10: E03.8 - Instructed patient on importance of taking on an empty stomach either first thing in the morning or at bedtime. 7. KAM (obstructive sleep apnea) CPAP intolerant - ICD9: 327.23, ICD10: G47.33 Does not wear CPAP- couldn't tolerate 8. Class 3 severe obesity due to excess calories with serious comorbidity and body mass index (BMI) of 40.0 to 44.9 in adult (HCC) - ICD9: 278.01, V85.41, ICD10: E66.01, Z68.41 Stable - Continue current medications Discussed treatment plan and patient voices understanding. Patient's questions answered appropriately. Medications and potential side effects were discussed and patient voices understanding. Return to the office as scheduled or as needed for worsening/no improvement. Michelle Smith APRN.CNP documented in this encounter [facility] 03-22-2024 Telephone encounter Note The following approved medication requests have been transmitted electronically. Requested Prescriptions Pending Prescriptions Disp Refills fenofibrate nanocrystallized (TRICOR) 145 mg tablet 90 tablet 3 Sig: Take 1 tablet by mouth once daily. traZODone (DESYREL) 150 mg tablet 90 tablet 3 Sig: Take 1 tablet by mouth daily at bedtime. Michelle Smith APRN.CNP [facility] 03-22-2024 Miscellaneous Notes The following approved medication requests have been transmitted electronically. Requested Prescriptions Pending Prescriptions Disp Refills fenofibrate nanocrystallized (TRICOR) 145 mg tablet 90 tablet 3 Sig: Take 1 tablet by mouth once daily. traZODone (DESYREL) 150 mg tablet 90 tablet 3 Sig: Take 1 tablet by mouth daily at bedtime. Michelle Smith APRN.CNP Prescription Refill Information The patient has been identified by name and date of : Yes Caregiver verified no other encounters exist for this prescription request: Yes Caregiver confirmed with patient/requestor that no other refills are due, in the near future, with this provider at this time: Yes The last office visit in the department: 11/03/2023 Does the patient have a future office visit with this provider/department: Yes 05/10/2024 Requested Prescriptions Pending Prescriptions Disp Refills fenofibrate nanocrystallized (TRICOR) 145 mg tablet 90 tablet 3 Sig: Take 1 tablet by mouth once daily. traZODone (DESYREL) 150 mg tablet 90 tablet 3 Sig: Take 1 tablet by mouth daily at bedtime. Twila Ortiz March 22, 2024 9:16 AM documented in this encounter [facility] 03-22-2024 Telephone encounter Note Prescription Refill Information The patient has been identified by name and date of : Yes Caregiver verified no other encounters exist for this prescription request: Yes Caregiver confirmed with patient/requestor that no other refills are due, in the near future, with this provider at this time: Yes The last office visit in the department: 11/03/2023 Does the patient have a future office visit with this provider/department: Yes 05/10/2024 Requested Prescriptions Pending Prescriptions Disp Refills fenofibrate nanocrystallized (TRICOR) 145 mg tablet 90 tablet 3 Sig: Take 1 tablet by mouth once daily. traZODone (DESYREL) 150 mg tablet 90 tablet 3 Sig: Take 1 tablet by mouth daily at bedtime. Twila Ortiz March 22, 2024 9:16 AM [facility] 02-25-2024 Telephone encounter Note Pt called and is notified of providers results and instructions. Pt voices understanding. Sanjuana Echeverria RN [facility] 02-25-2024 Miscellaneous Notes Pt called and is notified of providers results and instructions. Pt voices understanding. Sanjuana Echeverria RN Can please let patient know that we received the kidney ultrasound results. Overall, it looks normal. There is a small cyst of the right ovary, but that is not an uncommon finding and is usually not problematic. Again, continue good blood pressure control, good diabetes control, and avoid medications like ibuprofen. documented in this encounter [facility] 02-24-2024 Telephone encounter Note Can please let patient know that we received the kidney ultrasound results. Overall, it looks normal. There is a small cyst of the right ovary, but that is not an uncommon finding and is usually not problematic. Again, continue good blood pressure control, good diabetes control, and avoid medications like ibuprofen. [facility] Work Phone: 02-23-2024 Telephone encounter Note Patient has been identified by name and date of : Patient phones for refill(s): Requested Prescriptions Pending Prescriptions Disp Refills fluticasone-salmeterol (WIXELA INHUB) 250-50 mcg/dose inhaler 3 Each 3 Sig: Inhale 1 Puff as instructed two times a day. Rinse and gargle mouth with water after each use. Date of last office visit in primary care: 11/03/2023 Date of next office visit in primary care: 05/10/2024 Please advise. Thank you. Kami Zacarias. [facility] 02-23-2024 Miscellaneous Notes Patient has been identified by name and date of : Patient phones for refill(s): Requested Prescriptions Pending Prescriptions Disp Refills fluticasone-salmeterol (WIXELA INHUB) 250-50 mcg/dose inhaler 3 Each 3 Sig: Inhale 1 Puff as instructed two times a day. Rinse and gargle mouth with water after each use. Date of last office visit in primary care: 11/03/2023 Date of next office visit in primary care: 05/10/2024 Please advise. Thank you. Kami Zacarias. documented in this encounter [facility] 02-21-2024 Evaluation note Diagnosis Stage 3 chronic kidney disease, unspecified whether stage 3a or 3b CKD (HCC) documented in this encounter [facility]06-21[facility]24 History of Present illness Narrative* Luly Ma RDMS - 02/20/2024 1:00 PM EDT Radiology Service Progress Note PATIENT NAME: Chloe Guillory DATE OF SERVICE: February 20, 2024 TIME: 1:28 PM PATIENT IDENTITY VERIFICATION COMPLETED USING TWO (2) IDENTIFIERS: Name and Date of confirmedby patient verbally. FALL SCREENING: Has the patient had 2 falls in the last year or 1 fall with injury or currently using an Ambulatory Assistive Device (Walker, Cane, Wheelchair, Crutches, etc.)? No PATIENT GENDER DATA: Female. status: : No status: NO. PATIENT RELEVANT IMPLANT DATA REVIEWED: Not Applicable PATIENT PRESENTS WITH AN IMPLANTABLE OR ATTACHED CORRECTION LIEUTENANT: No RADIOLOGY DEPARTMENT: Ultrasound PERIPHERAL IV DATA: Not applicable SIGNED BY: Luly Ma RDMS February 20, 2024 1:28 PM [facility] Note * Telephone Encounter - Sanjuana Echeverria RN - 02/09/2024 3:01 PM EDT Pt called and is notified of providers results and instructions. Pt voices understanding. Transferred to scheduled to set up appt for us kidney/bladder. Sanjuana Echeverria RN [facility]06-10-2024 Miscellaneous Notes* Telephone Encounter - Sanjuana Echeverria RN - 02/09/2024 3:01 PM EDT Pt called and is notified of providers results and instructions. Pt voices understanding. Transferred to scheduled to set up appt for us kidney/bladder. Sanjuana Echeverria RN * Telephone Encounter - Chicho Carter MD - 02/09/2024 11:49 AM EDT Kidney function is lower than it was last year but is overall stable. Recheck renal us to make sure is ok. Is likely related to things like dm. It is not at a dangerous level. Avoid using things like advil or aleve and keep bp good. Keep next follow up with Angel. [facility] Tele[facility] encounter Note * Telephone Encounter - Chicho Carter MD - 02/09/2024 11:49 AM EDT Kidney function is lower than it was last year but is overall stable. Recheck renal us to make sure is ok. Is likely related to things like dm. It is not at a dangerous level. Avoid using things like advil or aleve and keep bp good. Keep next follow up with Angel. [facility]06-10-2024 Evaluation note* Diagnosis Stage 3 chronic kidney disease, unspecified whether stage 3a or 3b CKD (HCC)- Primary documented in this encounter [facility]06-10-2024 Reason for referral (narrative)* Diagnostic Procedure Only (Routine) - Authorized Specialty Diagnoses / Procedures Referred By Serena t Referred To Contact [facility] Diagnoses Stage 3 chronic kidney disease, unspecified whether stage 3a or 3b CKD (HCC) Procedures US KIDNEY/BLADDER US RETROPERITONEAL REAL TIME W/IMAGE COMPLETE Chicho Carter MD [address] [place] [address] [place] [address] Referral ID Status Reason Start Date Expiration Date Visits Requested Visits Authorized [id number] Authorized Auto-Generat ed Referral 02/09/2024 03/10/2025 1 1 [facility]05-29-2024 Telephone encounter Note* Telephone Encounter - Ann Hills RN - 01/28/2024 4:14 PM EDT Phoned patient and given provider's message below. Patient does not know what would make her labs higher. Reports she took aleve for a couple days to help with her back pain. Advised to avoid nsaids: ibuprofen, naproxen, aleve, and drink plenty of water- 6-8 cups daily. Patient agreeable and will return to lab next Wed. [facility]05-29-2024 Miscellaneous Notes* Telephone Encounter - Ann Hills RN - 01/28/2024 4:14 PM EDT Phoned patient and given provider's message below. Patient does not know what would make her labs higher. Reports she took aleve for a couple days to help with her back pain. Advised to avoid nsaids: ibuprofen, naproxen, aleve, and drink plenty of water- 6-8 cups daily. Patient agreeable and will return to lab next Wed. * Telephone Encounter - Chicho Carter MD - 01/28/2024 2:46 PM EDT Sugars are slightly higher. Kidney function is slightly higher and potassium is up slightly from last lab draw(drawn a few months later than it was to be) Not sure why kidney function is a little worse. Recheck labs in the next week and follow up with one of us after documented in this encounterBar[facility]05[facility]24 Telephone encounter Note * Telephone Encounter - Chicho Carter MD - 01/28/2024 2:46 PM EDT Sugars are slightly higher. Kidney function is slightly higher and potassium is up slightly from last lab draw(drawn a few months later than it was to be) Not sure why kidney function is a little worse. Recheck labs in the next week and follow up with one of us after [facility] Telephone encounter Note* Telephone Encounter - Michelle Chavez LPN - 01/19/2024 5:43 PM EDT Patient notified. Verbalized understanding. [facility]05-20-[facility]24 Miscellaneous Notes* Telephone Encounter - Michelle Chavez LPN - 01/19/2024 5:43 PM EDT Patient notified. Verbalized understanding. * Telephone Encounter - Ann Francois PA-C - 01/19/2024 5:30 PM EDT Trial switch to oral semaglutide, should be able to transition dose level per dose level. The following approved medication requests have been transmitted electronically. Requested Prescriptions Signed Prescriptions Disp Refills semaglutide (RYBELSUS) 14 mg tablet 90 tablet 1 Sig: Take 1 tablet (14 mg) by mouth daily before breakfast. Take 30 minutes before the first food, beverage, or other oral medications of the day with no more than 4 ounces of plain water Authorizing Provider: Ann FRANCOIS PA-C * Telephone Encounter - Ann Hills RN - 01/19/2024 9:30 AM EDT Patient reports [facility] is unable to get trulicity 4.5 mg, for a month now, and have no idea when they will be able to. [facility] tells patient they have checked all the other pharmacies and noone has it. [facility] tells her onone can get ozempic either. Patient had last shot this past Sat. Asking if pcp wants to prescribe an alternative. documented in this encounterBarberton [facility]05-20-2024 Telephone encounter Note * Telephone Encounter - nAn Francois PA-C - 01/19/2024 5:30 PM EDT Trial switch to oral semaglutide, should be able to transition dose level per dose level. The following approved medication requests have been transmitted electronically. Requested Prescriptions Signed Prescriptions Disp Refills semaglutide (RYBELSUS) 14 mg tablet 90 tablet 1 Sig: Take 1 tablet (14 mg) by mouth daily before breakfast. Take 30 minutes before the first food, beverage, or other oral medications of the day with no more than 4 ounces of plain water Authorizing Provider: Ann FRANCOIS PA-C [facility]05-[facility] Telephone encounter Note* Telephone Encounter - Ann Hills RN - 01/19/2024 9:30 AM EDT Patient reports [facility] is unable to get trulicity 4.5 mg, for a month now, and have no idea when they will be able to. [facility] tells patient they have checked all the other pharmacies and noone has it. [facility] tells her onone can get ozempic either. Patient had last shot this past Sat. Asking if pcp wants to prescribe an alternative. [facility]04-19-[facility] Miscellaneous Notes* Telephone Encounter - Michelle Smith APRN.CNS - 12/19/2023 12:13 PM EDT The following approved medication requests have been transmitted electronically. Requested Prescriptions Pending Prescriptions Disp Refills dilTIAZem HCl 360 mg 24 hr capsule 90 capsule 3 Sig: Take 1 capsule by mouth once daily. Michelle Smith APRN.CNS * Telephone Encounter - Christina Trujillo - 12/19/2023 9:32 AM EDT Patient has been identified by name and date of : Yes, Patient phones for refill(s): Requested Prescriptions Pending Prescriptions Disp Refills dilTIAZem HCl 360 mg 24 hr capsule 90 capsule 3 Sig: Take 1 capsule by mouth once daily. Date of last office visit in primary care: 11/03/2023 Date of next office visit in primary care: 05/10/2024 Please advise. Thank you. Christina Turjillo. documented in this encounterBarberton [facility]04-10-2024 Miscellaneous Notes* Telephone Encounter - Taya Manley - 12/10/2023 1:57 PM EDT Patient wants to know if rx can be written for longer than 1 month at a time with refills. * Telephone Encounter - Taya Manley - 12/10/2023 1:56 PM EDT Patient has been identified by name and date of : Yes, Provider Alessandro Patient phones for refill(s): Requested Prescriptions Pending Prescriptions Disp Refills dulaglutide (TRULICITY) 4.5 mg/0.5 mL pen injector 6 mL Sig: Inject 4.5 mg subcutaneously one time a week. Date of last office visit in primary care: 11/03/2023 Date of next office visit in primary care: 05/10/2024 Please advise. Thank you. Taya Jimenez. documented in this encounterBarberton [facility]04-09-2024 History of Present illness Narrative* Luly Ma RDMS - 12/09/2023 2:30 PM EDT Radiology Service Progress Note PATIENT NAME: Chloe Guillory DATE OF SERVICE: December 09, 2023 TIME: 3:10 PM PATIENT IDENTITY VERIFICATION COMPLETED USING TWO (2) IDENTIFIERS: Name and Date of confirmedby patient verbally. FALL SCREENING: Has the patient had 2 falls in the last year or 1 fall with injury or currently using an Ambulatory Assistive Device (Walker, Cane, Wheelchair, Crutches, etc.)? No PATIENT GENDER DATA: Female. status: : No status: NO. PATIENT RELEVANT IMPLANT DATA REVIEWED: Not Applicable PATIENT PRESENTS WITH AN IMPLANTABLE OR ATTACHED CORRECTION LIEUTENANT: No RADIOLOGY DEPARTMENT: Ultrasound PERIPHERAL IV DATA: Not applicable SIGNED BY: Luly Ma RDMS December 09, 2023 3:10 PM documented in this encounterBarberton [facility] Hospital04-09-2024 History of Present illness Narrative* Debora Bliss Mammo Tech - 12/09/2023 2:00 PM EDT Radiology Service Progress Note PATIENT NAME: Chloe Guillory DATE OF SERVICE: December 09, 2023 TIME: 1:42 PM PATIENT IDENTITY VERIFICATION COMPLETED USING TWO (2) IDENTIFIERS: Name and Date of confirmedby patient verbally. FALL SCREENING: Has the patient had 2 falls in the last year or 1 fall with injury or currently using an Ambulatory Assistive Device (Walker, Cane, Wheelchair, Crutches, etc.)? No PATIENT GENDER DATA: Female. status: : No status: NO. PATIENT RELEVANT IMPLANT DATA REVIEWED: Not Applicable PATIENT PRESENTS WITH AN IMPLANTABLE OR ATTACHED CORRECTION LIEUTENANT: No RADIOLOGY DEPARTMENT: Mammography PERIPHERAL IV DATA: Not applicable SIGNED BY: Juli Chuao Daniela December 09, 2023 1:42 PM documented in this encounterBarberton [facility]04-01-2024 Miscellaneous Notes* Telephone Encounter - Sammie Perez RN - 12/01/2023 4:26 PM EDT Patient calls and notified of providers message. Patient verbalizes understanding. Sammie Perez RN * Telephone Encounter - Michelle Chavez LPN - 12/01/2023 4:23 PM EDT Left message to return call * Telephone Encounter - Ann Francois PA-C - 12/01/2023 4:13 PM EDT Great job. Sugars look good. Patel, Angel Francois PA-C * Telephone Encounter - Sanjuana Echeverria RN - 11/27/2023 2:48 PM EDT Pt called in and reports she was supposed to call in BS. She also wanted to let provider know that she has successfully come off of the Venlafaxine. Pt did not have the dates for her BS, just fast and 2 hours after evening meal. Fastin, 111,116,124,121,119 2 hr after evening meal: 173,150,143,189,181,167 documented in this encounterBarber[facility]03-08-2024 Miscellaneous Notes* Telephone Encounter - Ann Francois PA-C - 11/07/2023 4:18 PM EST The following approved medication requests have been transmitted electronically. Requested Prescriptions Signed Prescriptions Disp Refills venlafaxine ER (EFFEXOR XR) 75 mg 24 hr capsule 15 capsule 0 Sig: Take 1 capsule by mouth once daily. Weaning: alternate 75mg every other day with 150mg x 1 week, then 75mg daily x 1 week, the 75mg every other day x 1 week Authorizing Provider: Ann FRANCOIS PA-C * Telephone Encounter - Nathalia Reina RN - 11/07/2023 2:10 PM EST Patient reports during her last OV with Angel Francois this past Friday, there was discussion of her weaning down on her Effexor. Patient asking if Angel would send a 75 mg dosage prescription to her pharmacy as pended? Pt weaningoff off the 150 mg dosage. No call back needed to patient if provider agreeable to send. Nathalia Reina RN documented in this encounterBarberton [facility]03-04-2024 Instructions* Patient Instructions* Ann Francois PA-C - 11/03/2023 1:18 PM EST I am providing again a list of options to review with your insurance for medication coverage. Orlistat (Xenical, Earle) over the counter non-prescription, blocks uptake of fat which can cause diarrhea Lorcaserin (Belviq) (serotonin 2 receptor agonist unknown mechanism but believed to affect the 5HT2C receptors in the hypothalamus which affect satiety. Naltrexone-bupropion (Contrave) Liraglutide (Saxenda) Semaglutide (Wegovy) Wean effexor as directed, notify if any problems. Drop degludec (TRESIBA) insulin to 15u at bedtime. Check blood sugars fasting a.m. and 2h after evening meal x 3 days and report results to office by phone or MyChart. documented in this encounterBarber[facility]03-04-2024 History of Present illness Narrative* Ann Francois PA-C - 11/03/2023 1:00 PM EST 73 year old female with c/o follow up Wants to stop venlafaxine: having daily headaches which started after upping dose. Doesn't feel like it does anything though acknowledges she's not sleeping in bed all day. Moderate persistent asthma without complication (primary encounter diagnosis) Restrictive lung disease Kam (obstructive sleep apnea) cpap intolerant Link Trainer Teacher: Dr. Lucien Jones PA-C Interval history: 07/07/2023 nitric oxide exhaled: 20 PPB WNL 07/07/2023 dose of bronchodilator: Spirometry indicates mild obstruction. The increase in FEF 25-75 post-bronchodilator reflects an improvement in the small airway obstruction. Current medications: Albuterol HFA 2 puffs every 4 hours as needed wheezing Wixela fluticasone-salmeterol 250-50 mcg per dose 1 puff twice daily Reaffirms the following today: Worsening shortness of breath: No. Cough: Yes. Wheezing: No. Smoking: No. Compliant with medications: Yes. Using rescue inhaler: very rarely Stable angina pectoris Primary hypertension Other hyperlipidemia Decision Analyst Dr. Osman Olsen Cardiovascular interval hx: 07/21/2023 echo: CONCLUSIONS: - Technically difficult exam due to body habitus. - Exam indication: Shortness of Breath - The left ventricle is normal in size. Left ventricular systolic function is normal. EF = 62 5% (2D biplane) Grade I left ventricular diastolic dysfunction. - The right ventricle is normal in size. Right ventricular systolic function is normal. - There are no significant valvular abnormalities. - Exam was compared with the prior echocardiographic exam performed on 07/20/2020, no sigificant change. 07/14/2020 cardiac cath diagnostic: normal coronaries Coronary Anatomy: Right Dominant LMT: _ The LMT is normal. LAD: _ The LAD is normal. LCX: _ The Circumflex is normal. RAMUS: _ Ramus Status: Not Applicable. RCA: _ RCA is normal. 07/10/2020 echo: LV size and LV SF WNL, EF 64%. No abnormal wall motion. RV size and RV SF WNL, RV SP estimated complicated by insufficient TR signal, PAP 3 mmHg, IVC not seen LA and RA normal size No apparent valvular disease Normal aorta. 06/26/[address] Olsen: RUIZ with stairs, chest pain in the evening, aching without radiating pain. Current meds: Diltiazem HCl 360 mg 24-hour 1 capsule daily Fenofibrate 145 mg daily Use of NTG: No Chest pain, arm, jaw pain, neck, or upper back pain suggestive of angina: No. SOB: No Dyspnea with exertion: confirms again Yes, huffs and puffs going upstairs, can't go a block. orthopnea: No Cough: No racing or irregular heartbeats: Confirms again No. Heart just pounds. palpitations: No syncopal sx: No Headache: No Unexplainable fatigue: no, has improved; todays states a little bit, not sleeping all day like before Leg swelling: No Nausea: No diaphoresis: No Heartburn: yes, also belching and gas: same today Claudication: No. Notes upper arms cramp when working- same today Smoking: No Following Low cholesterol, high fiber diet? Yes If on statin: muscle aches? No If on statin: GI sx or diarrhea? No Additional history none. Lab results: Component Latest Ref Rng & Units 11/18/2022 04/01/2023 05/23/2023 10/30/2023 Protein, Total 6.3 - 8.0 g/dL 6.9 7.0 6.7 Albumin 3.9 - 4.9 g/dL 4.1 4.3 4.0 Calcium 8.5 - 10.2 mg/dL 9.9 10.0 9.7 9.8 Bilirubin, Total 0.2 - 1.3 mg/dL 0.3 0.2 0.2 Alkaline Phosphatase 34 - 123 U/L 67 77 61 AST 13 - 35 U/L 25 22 25 ALT 7 - 38 U/L 25 27 25 Glucose 74 - 99 mg/dL 115 (H) 126 (H) 135 (H) 117 (H) BUN 7 - 21 mg/dL 24 (H) 21 17 27 (H) Creatinine 0.58 - 0.96 mg/dL 1.14 (H) 0.94 0.90 1.07 (H) Sodium 136 - 144 mmol/L 138 141 140 140 Potassium 3.7 - 5.1 mmol/L 4.5 4.5 4.6 4.6 Chloride 97 - 105 mmol/L 103 102 104 101 CO2 22 - 30 mmol/L 23 25 27 26 Anion Gap 9 - 18 mmol/L 12 14 9 13 eGFR >=60 mL/min/1.73m 52 (L) 65 68 55 (L) Cholesterol, Total <200 mg/dL 224 (H) 205 (H) Triglyceride <150 mg/dL 108 145 HDL Cholesterol >39 mg/dL 63 51 Non HDL Cholesterol <130 mg/dL 161 (H) 154 (H) Fasting Time hrs 14 14 VLDL Cholesterol <30 mg/dL 22 29 TC:HDL Ratio <5.10 3.56 4.02 LDL Cholesterol <100 mg/dL 139 (H) 125 (H) LDL:HDL Ratio <2.54 2.21 2.45 Type 2 diabetes mellitus with stage 3a chronic kidney disease, with long-term current use of insulin (hcc) Current medications: Insulin degludec 20u SC HS Metformin 500mg 2 tabs twice a day with meals Dulaglutide 4.5mg SC weekly Taking medication as directed consistently? Yes Medication side effects: none Medical Issues / Complications: hypertension and hyperlipidemia Checking blood sugars at home? Yes. 120-130s in morning, evening 170-190 Watching diet? Cut eating in half, frustrated Physical Activity: Sedentary Hypoglycemic spells? No Any visual disturbance? No Chest pain? As above New numbness, tingling or loss of sensation? Yes Any recent foot problems, sores or rashes? No Any recent or sudden weight loss? No Change in urination? No. If yes: Any recent illness? No Last eye exam: up to date. Last foot exam: up to date. HBA1C: Hemoglobin A1C (%) Date Value 10/30/2023 6.6 05/23/2023 7.7 09/04/2021 6.3 03/15/2021 6.7 ) CMP: Glucose 135 05/23/2023 BUN 17 05/23/2023 Creatinine 0.90 05/23/2023 Sodium 140 05/23/2023 Potassium 4.6 05/23/2023 Chloride 104 05/23/2023 CO2 27 05/23/2023 Protein, Total 6.7 05/23/2023 Albumin 4.0 05/23/2023 Calcium 9.7 05/23/2023 Alkaline Phosphatase 61 05/23/2023 Bilirubin, Total 0.2 05/23/2023 AST 25 05/23/2023 ALT 25 05/23/2023 Last 2 Encounter Wt Readings: Date: Wt: 07/07/2023 102.5 kg (226 lb) 07/07/2023 102.5 kg (226 lb) Component Latest Ref Rng & Units 03/11/2022 04/01/2023 Creatinine, Ur Random (UCRR) 20.0 - 300.0 mg/dL 172.9 195.4 Albumin, Urine Random mg/L <12.0 26.9 Albumin/Creat Ratio <30 mg/g <7 14 PHQ-9 05/16/2016 09/16/2016 04/03/2021 Score 9 0 14 HISTORIES FAMILY HISTORY Adopted: Yes Family history unknown: Yes PAST MEDICAL HISTORY Diagnosis Date Hypertension Hypothyroidism Insomnia 03/19/2016 Moderate persistent asthma without complication 07/11/2015 07/07/15 Methacholine Inhalation Challenge: 35% drop FEV1 at 2.5 mg/mL. Morbid obesity (HCC) 04/04/2015 Patient has morbid obesity. Multiple gallstones 03/20/2022 Resolved with lap choly 05/07/2022 KAM (obstructive sleep apnea) 09/26/2015 DME: [facility] Other hyperlipidemia 03/23/2019 RLS (restless legs syndrome) 02/15/2019 Stable angina pectoris 06/26/2020 Type 2 diabetes mellitus with stage 3 chronic kidney disease, with long-term current use of insulin([facility]) 04/04/2015 Dx: age 51. On metformin and victoza which she does not think works well for her lately She was started on jardiance which made her have suicidal ideation So she stopped the medication. PAST SURGICAL HISTORY Procedure Laterality Date APPENDECTOMY 1957 LAPAROSCOPY DIAGNOSTIC 2000 LEFT HEART CATH,PERCUTANEOUS 07/14/2020 wnl REMOVAL GALLBLADDER 05/07/2022 TONSILLECTOMY AND ADENOIDECTOMY HX 195 TOTAL ABDOMINAL HYSTERECT W/WO RMVL TUBE OVARY 2000 Social History Tobacco Use Smoking status: Never Smokeless tobacco: Never Tobacco comments: NO smoking in childhood home. Spouse smokes pipe, not around patient. Vaping Use Vaping Use: Never used Substance Use Topics Alcohol use: No Drug use: No ACTIVE PROBLEM LIST Type 2 Diabetes Mellitus With Stage 3a Chronic Kidney Disease, With Long-Term Current Use of Insulin ([facility]) Hypertension Hypothyroidism Moderate Persistent Asthma Without Complication KAM (obstructive sleep apnea) CPAP intolerant Insomnia Rls (Restless Legs Syndrome) Class 3 Severe Obesity With Body Mass Index (Bmi) of 40.0 to 44.9 in Adult ([facility]) Edema Other Hyperlipidemia Stable Angina Pectoris ([facility]) Chronic Pain of Both Shoulders Current Outpatient Medications Medication Sig Dispense Refill levothyroxine (LEVOXYL) 50 mcg tablet Take 1 tablet by mouth once daily. Take on empty stomach. ForThyroid 90 tablet 3 olmesartan (BENICAR) 20 mg tablet Take 1 tablet by mouth once daily. 90 tablet 3 omeprazole (PRILOSEC) 20 mg capsule Take 1 capsule by mouth daily before breakfast. 1/2 hr before meal. 90 capsule 3 insulin degludec (TRESIBA FLEXTOUCH) 100 unit/mL (3 mL) injection pen Inject 25 Units subcutaneously daily at bedtime. 9 mL 5 omeprazole (PRILOSEC) 20 mg capsule Take 1 capsule by mouth daily before breakfast. 1/2 hr before meal. 30 capsule 5 albuterol HFA (PROVENTIL HFA, VENTOLIN HFA) 90 mcg/actuation inhaler Inhale 2 Puffs as instructed four times a day as needed for wheezing/shortness of breath. FOR WHEEZING AND SHORTNESS OF BREATH. 54g 3 venlafaxine ER (EFFEXOR XR) 150 mg 24 hr capsule Take 1 capsule by mouth once daily. 30 capsule 5 metFORMIN (GLUCOPHAGE) 500 mg tablet Take 2 tablets by mouth two times a day with meals. 120 tablet5 dulaglutide (TRULICITY) 4.5 mg/0.5 mL pen injector Inject 4.5 mg subcutaneously one time a week. 6 mL 1 fenofibrate nanocrystallized (TRICOR) 145 mg tablet Take 1 tablet by mouth once daily. 90 tablet 3 traZODone (DESYREL) 150 mg tablet Take 1 tablet by mouth daily at bedtime. 90 tablet 3 fluticasone-salmeterol (WIXELA INHUB) 250-50 mcg/dose inhaler Inhale 1 Puff as instructed twice daily. Rinse and gargle mouth with water after each use. 3 Each 3 dilTIAZem HCl 360 mg 24 hr capsule Take 1 capsule by mouth once daily. 90 capsule 3 MULTIVITAMIN ORAL Take by mouth once daily. No current facility-administered medications for this visit. DTaP,Tdap,Td Vaccine(1 - Tdap) due on 1970 RSV Vaccine(1 - 1-dose 60+ series) Never done Colorectal Cancer Screening due on 02/28/2022 Advance Directive Discussion due on 09/01/2023 Depression Assessment due on 09/01/2023 Dilated Retinal Exam due on 11/19/2023 EXAM: \BP 102/62 Pulse 82 Resp 16 Wt 98 kg (216 lb) SpO2 98% BMI 40.81 kg/m Pleasant obese adult woman in no acute distress. Alert and oriented all spheres. Normal affect and cognition. Speech normal. No deficits to learning or comprehension. Skin warm, dry, pink to lips and nailbeds. Normal turgor. Respirations regular and unlabored. HEENT: NCAT. No scleral icterus or conjunctival injection. TM's clear. Chronically hoarse voice. Nose and oropharynx free from injection or lesion. Oral membranes moist and pink. No cervical lymph nodes. Thyroid non-tender, no masses, or enlargement. Carotids pulses 2+/4+ without bruits. No JVD with HOB at 30 degrees. Chest is normal shape. Lungs are clear to all barnett with good air exchange through out. HRRR without murmur or gallop. No lifts, heaves, or rubs. Abdomen: active bowel sounds throughout, soft, nontender, no masses or organomegaly. No CVAT. Extrem: no clubbing or cyanosis. Edema: none. Extremities are warm and pink with prompt capillary refill. ASSESSMENT/PLAN: 1. Inconclusive mammogram - ICD9: 793.82, ICD10: R92.2 (primary diagnosis) - [facility] - US BREAST LTD RIGHT 2. Hypothyroidism, unspecified type - ICD9: 244.9, ICD10: E03.9 - Instructed patient on importance of taking on an empty stomach either first thing in the morning or at bedtime. 3. Type 2 diabetes mellitus with stage 3a chronic kidney disease, with long-term current use of insulin ([facility]) - ICD9: 250.40, 585.3, V58.67, ICD10: E11.22, N18.31, Z79.4 - Controlled - Continue current medications - Decrease Insulin degludec (Tresiba) - Statin prescribed - Yes - Blood glucose monitoring on a twice daily schedule - Counseled on healthy diet and regular exercise - Discussed need for and benefit of weight loss. BMI 40.81 kg/(m^2) - eGFR: 55 Stable with improvement - Counseled on avoiding NSAIDs, adequate hydration - METFORMIN 500 MG TABLET - INSULIN DEGLUDEC (U-100) 100 UNIT/ML (3 ML) SUBCUTANEOUS PEN Will aim at weaning insulin, add empagliflozin depending on results 4. Gastroesophageal reflux disease, unspecified whether esophagitis present - ICD9: 530.81, ICD10: K21.9 - Discussed lifestyle modifications including losing weight, limiting caffeine, no meals three hours before sleep, and head of bed elevation - OMEPRAZOLE 40 MG CAPSULE,DELAYED RELEASE 5. Adjustment disorder with depressed mood - ICD9: 309.0, ICD10: F43.21 Feels she doesn't benefit from effexor: wean 6. Class 3 severe obesity due to excess calories with serious comorbidity and body mass index (BMI)of 40.0 to 44.9 in adult ([facility]) - ICD9: 278.01, V85.41, ICD10: E66.01, Z68.41 Weight increasing - Behavioral intervention and - Pharmacological intervention 7. Moderate persistent asthma without complication - ICD9: 493.90, ICD10: J45.40 - Moderate persistent asthma stable - Continue current medications - Avoidance of triggers recommended 8. KAM (obstructive sleep apnea) CPAP intolerant - ICD9: 327.23, ICD10: G47.33 No treatment per patient choice 9. Other hyperlipidemia - ICD9: 272.4, ICD10: E78.49 As above, fair control. Continue meds, work on diet and weightloss 10. RLS (restless legs syndrome) - ICD9: 333.94, ICD10: G25.81 Stable, CPM 11. Stable angina pectoris (HCC) - ICD9: 413.9, ICD10: I20.89 No recent sx, follows [facility] 12. Primary hypertension - ICD9: 401.9, ICD10: I10 - Controlled - Continue current medications - Recommend home blood pressure monitoring, to bring results to next visit - Encouraged sodium restriction, DASH or Mediterranean diet - Recommend regular aerobic exercise 13. Insomnia, unspecified type - ICD9: 780.52, ICD10: G47.00 Manages with fair sleep on trazedne: continue. E All questions were reviewed with changes designated from last note written as noted and updated in bold. Ann Francois PA-C documented in this encounterBarberton [facility]03-04-2024 Miscellaneous Notes* Telephone Encounter - Noris Rios LPN - 11/03/2023 8:57 AM EST Pt notified of results and provider message. Noris Rios LPN * Telephone Encounter - Giselle Dinh Ma - 11/03/2023 8:54 AM EST Message left for pt to call back. Giselle Dinh Ma * Telephone Encounter - Ann Francois PA-C - 11/01/2023 7:58 AM EST Recheck with pushing fluids in 4 weeks Telephone on 11/01/23 BASIC METABOLIC PNL Angel Sweeney PA-C documented in this encounterBarberton [facility]02-14-2024 Miscellaneous Notes* Telephone Encounter - Ann Hills RN - 10/15/2023 1:54 PM EST Notified patient. * Telephone Encounter - Chicho Carter MD - 10/15/2023 1:02 PM EST Orders placed. * Telephone Encounter - Seema Rankin LPN - 10/15/2023 9:58 AM EST Pt called and she will be coming in next week for labs and would like to have her kidneys checked. Please advise pt if needed. Seema Rankin LPN documented in this encounterBarberton [facility] Hospital02-14-2024 Miscellaneous Notes* Telephone Encounter - Teresa Georges LPN - 10/15/2023 10:13 AM EST Images from the original note were not included. APPROVED. Pt notified. Reyna Georges LPN * Telephone Encounter - Teresa Georges LPN - 10/15/2023 10:00 AM EST PA submitted in [employer]. Awaiting response. Reyna Georges LPN * Telephone Encounter - Seema Rankin LPN - 10/15/2023 9:49 AM EST Pt called in and is has 4 days of Trulicity left. PA to be done. [facility] reports they faxed PA request on 10/10/23-10/12/23 and 10-14-23. PRIOR AUTHORIZATION Medication for Prior Authorization: Trulicity Other formulary meds available : unknown Insurance Company: Medicare Insurance Company phone number: [phone] Patient insurance ID number: [id number] Seema Rankin LPN documented in this encounterBarber[facility]11-24-2023 Miscellaneous Notes* Telephone Encounter - Sonia Pizarro MA - 07/25/2023 9:58 AM EST Patient notified, verbalizes understanding of instructions. Sonia Pizarro MA * Telephone Encounter - Bel Chowdhury Ma - 07/23/2023 4:15 PM EST Phone continues to be busy * Telephone Encounter - Hannah Kirk - 07/23/2023 1:31 PM EST Placed call to patient two times; busy signal. Try again later. Hannah Kirk * Telephone Encounter - Chicho Carter MD - 07/23/2023 12:23 PM EST That is not a concern for her. * Telephone Encounter - Lisseth Manuel RN - 07/23/2023 10:37 AM EST Patient calls and states that pharmacy finally had gotten venlafaxine 150 mg in on 07/21/2023. Patient states that when she picked up medication, pharmacist had warned her that medication can affect the heart. Patient had ECHO done on heart on 07/21/2023. Patient is not sure if she wants to take venlafaxine anymore. Patient has been taking the previous ordered dose of 75 mg but only has a week and a half left of medication. Patient asking if she should continue to take medication or should she be weaned off of medication? Please review and advise, Lisseth Manuel RN documented in this encounterBarberton [facility]11-22-2023 Miscellaneous Notes* Result Encounter Note - Meliza Jones PA-C - 07/23/2023 3:00 PM EST Please call Chloe to alert her that her echocardiogram is unchanged when compared to echo in July 2020. documented in this encounterBarberton [facility] Hospital11-20-2023 Miscellaneous Notes* Telephone Encounter - Emani Boothe, RN - 07/21/2023 2:43 PM EST Spoke with patient. Given message from provider's office. Patient verbalizes understanding. Emani Boothe RN * Telephone Encounter - Bel Chowdhury Ma - 07/21/2023 2:39 PM EST Left message for patient to return call. Bel Chowdhury Ma * Telephone Encounter - Ann Francois PA-C - 07/21/2023 1:13 PM EST Blood sugars are in good range. Angel Sweeney PA-C * Telephone Encounter - Bel Chowdhury Ma - 07/21/2023 12:57 PM EST Patient stops by office and drops off list of blood sugars. 10-12 hr fasting 2 hr after evening meal 156 191 125 138 119 167 128 163 125 190 136 176 documented in this encounterBarberton [facility] Hospital11-07-2023 Miscellaneous Notes* Telephone Encounter - Maggy Akers MD - 07/08/2023 4:23 PM EST Attempted to call patient regarding breast radiographs done today. Phone number in chart with no name identified, therefore due to HIPAA, I did not leave . Patient's breast radiographs revealed no evidence of malignancy today. She can return to routine annual breast cancer screening. documented in this encounterBarberton Citizens Hospital11-07-2023 History of Present illness Narrative* Luly Ma RDMS - 07/08/2023 2:00 PM EST Radiology Service Progress Note PATIENT NAME: Chloe Guillory DATE OF SERVICE: July 08, 2023 TIME: 4:33 PM PATIENT IDENTITY VERIFICATION COMPLETED USING TWO (2) IDENTIFIERS: Name and Date of confirmedby patient verbally. FALL SCREENING: Has the patient had 2 falls in the last year or 1 fall with injury or currently using an Ambulatory Assistive Device (Walker, Cane, Wheelchair, Crutches, etc.)? No PATIENT GENDER DATA: Female. status: : No status: NO. PATIENT RELEVANT IMPLANT DATA REVIEWED: Not Applicable RADIOLOGY DEPARTMENT: Ultrasound PERIPHERAL IV DATA: Not applicable SIGNED BY: Luly Ma RDMS July 08, 2023 4:33 PM documented in this encounterBarberton [facility] Hospital11-07-2023 History of Present illness Narrative* Debora Bliss Mammo Daniela - 07/08/2023 1:00 PM EST Radiology Service Progress Note PATIENT NAME: Chloe Guillory DATE OF SERVICE: July 08, 2023 TIME: 1:10 PM PATIENT IDENTITY VERIFICATION COMPLETED USING TWO (2) IDENTIFIERS: Name and Date of confirmedby patient verbally. FALL SCREENING: Has the patient had 2 falls in the last year or 1 fall with injury or currently using an Ambulatory Assistive Device (Walker, Cane, Wheelchair, Crutches, etc.)? No PATIENT GENDER DATA: Female. status: : No status: NO. PATIENT RELEVANT IMPLANT DATA REVIEWED: Not Applicable RADIOLOGY DEPARTMENT: Mammography PERIPHERAL IV DATA: Not applicable SIGNED BY: Debora Bliss Mammo Tech July 08, 2023 1:10 PM documented in this encounterBarberton [facility] Hospital11-06-2023 Procedure note* Gloria Jarquin RPFT - 07/07/2023 1:13 PM ESTAssociated Order(s): NITRIC OXIDE, EXHALED RESPIRATORY THERAPY ORAL EXHALED NITRIC OXIDE SERVICE DATE: 07/07/2023 SERVICE TIME: 1:13 PM Oral Exhaled Nitric Oxide measurement: 20.0 (ppb) Normal: Adult 5-20 ppb, pediatric (<12 years) 5-15 ppb High Normal / Increased: Adult 20-35 ppb, pediatric (<12 years) 15-25 ppb Moderately raised exhaled Nitric Oxide may indicate underlying inflammation, but note that: Cold and influenza can raise exhaled Nitric Oxide and some patients have higher baseline exhaled Nitric Oxide levels than others. High: Adult >35 ppb, pediatric (<12 years) >25 ppb Indicative of ongoing eosinophilic inflammation. Symptomatic patient likely to respond to steroids. Possible causes (if already on steroids): Poor compliance, recent allergen exposure, steroid dose inadequate, and steroid resistance. Note that not all patients with high exhaled nitric oxide levels display symptoms. Oral Exhaled Nitric Oxide measurement (Previous Encounters) Test Date Oral Exhaled Nitric Oxide (ppb) 07/07/2023 20.0 09/11/2020 28.0 NAME: PADMA Infante PATIENT NAME: Chloe Guillory DATE: July 07, 2023 TIME: 1:13 PM documented in this encounterBarberton [facility] Hospital11-06-2023 History of Present illness Narrative* Gloria Jarquin RPFT - 07/07/2023 1:03 PM EST PULM FUNCTION SMARTBLOCK: Provider: Meliza Jones PA-C Assisting Tech: Gloria Jarquin RPFT Spirometry w/BD: 1 Exhaled Nitric Oxide: 1 documented in this encounterBarberton Citizens Hospital10-25-2023 Miscellaneous Notes* Telephone Encounter - Clinton Burgos LPN - 06/25/2023 2:28 PM EDT Patient phones requesting refills as follows: Requested Prescriptions Pending Prescriptions Disp Refills venlafaxine ER (EFFEXOR XR) 75 mg 24 hr capsule [Pharmacy Med Name: VENLAFAXINE HCL ER 75 MG CAP] 90 capsule 1 Sig: TAKE 1 CAPSULE BY MOUTH EVERY DAY *Pharmacy requesting 90 day supply. Please review and advise. Clinton Burgos LPN documented in this encounterBarberton Citizens Hospital10-24-2023 Miscellaneous Notes* Telephone Encounter - Michelle Chavez LPN - 06/24/2023 9:23 AM EDT Pharmacy comment: Alternative Requested:NON FORMULARY. documented in this encounterBarberton Citizens Hospital10-23-2023 Miscellaneous Notes* Telephone Encounter - Ann Francois PA-C - 06/23/2023 5:13 PM EDT The following approved medication requests have been transmitted electronically. Requested Prescriptions Signed Prescriptions Disp Refills insulin degludec (TRESIBA FLEXTOUCH U-100) 100 unit/mL (3 mL) injection pen 9 mL 5 Sig: Inject 30 Units subcutaneously daily at bedtime. Authorizing Provider: Ann FRANCOIS PA-C * Telephone Encounter - Sanjuana Echeverria RN - 06/23/2023 11:02 AM EDT Pt called in and reports her insurance will not cover the Levemir flex pen anymore. She states the options are Lantus U100, Lantus Solostar U100, Toujeo Max U300 Solostar pen, Solostar U300, or Tresiba flex touch U100. She is asking if provider will send new medication to [facility] in [place] for her. documented in this encounterBarberton [facility] Hospital08-30-2023 Miscellaneous Notes* Telephone Encounter - Danii Amanda LPN - 04/30/2023 2:38 PM EDT Spoke with pharmacy and they found script effexor system glitch. Patient notified. * Telephone Encounter - Danii Amanda LPN - 04/30/2023 1:49 PM EDT Attempted to call pharmacy and they are closed for lunch will have to try again after 2:00. * Telephone Encounter - Ann Francois PA-C - 04/29/2023 5:14 PM EDT venlafaxine ER (EFFEXOR XR) 37.5 mg 24 hr capsule 30 capsule 2 04/01/2023 Sig: Take 1 capsule by mouth once daily. Sent to pharmacy as: venlafaxine ER (EFFEXOR XR) 37.5 mg 24 hr capsule Class: Normal Route: ORAL Order: [id number] E-Prescribing Status: Receipt confirmed by pharmacy (04/01/2023 12:44 PM EDT) Have her check again, shows receipt of rx on 04/01/2023 Angel Sweeney PA-C * Telephone Encounter - Meliza Hendricks - 04/29/2023 10:36 AM EDT [place] [facility] [place] the Venlafaxine they are saying they do not have a prescription for this med and will not fill it. She states also that the Januvia refill is going to cost $600 so she does not want that. She statesthe first on did not got that much. Concerned the pharmacy may have that one wrong also. documented in this encounterBarberton [facility] Hospital08-21-2023 Miscellaneous Notes* Telephone Encounter - Ann Francois PA-C - 04/21/2023 6:14 PM EDT The following approved medication requests have been transmitted electronically. Requested Prescriptions Signed Prescriptions Disp Refills insulin detemir U-100 (LEVEMIR FLEXPEN) 100 unit/mL (3 mL) injection pen 9 mL 5 Sig: Inject 30 Units subcutaneously daily at bedtime. Authorizing Provider: Ann FRANCOIS PA-C * Telephone Encounter - Glendy Kapadia OCCA - 04/21/2023 9:52 AM EDT See message from pharmacy below: Alternative Requested:NEEDS TO BE THE LEVEMIR FLEX PEN THE FLEX TOUCH IS NO LONGER MADE. documented in this encounterBarberton Citizens Hospital08-17-2023 Miscellaneous Notes* Telephone Encounter - Twila Muñoz - 04/17/2023 12:20 PM EDT Patient has been identified by name and date of : Yes Requested Prescriptions Pending Prescriptions Disp Refills insulin detemir U-100 (LEVEMIR FLEXTOUCH U-100 INSULIN) 100 unit/mL (3 mL) injection pen 10 Each 1 Sig: Inject 30 Units subcutaneously daily at bedtime. RX INSTRUCTIONS: Patient aware RX will be sent to pharmacy. No need to notify patient. Twila Ortiz documented in this encounterBarberton [facility] Hospital08-02-2023 Miscellaneous Notes* Telephone Encounter - Uyen Clemens Ma - 04/02/2023 1:41 PM EDT Called [employer] since no PA is needed. [employer] advised no PA is needed but NDC code needs ran: [id number] Called [facility] and had them entere NDC code which it went through Uyen Clemens Ma * Telephone Encounter - Chloe Hi LPN - 04/02/2023 1:26 PM EDT PA response says this is covered. No PA needed. Called the pharmacy and they are running rx with the ID number of [id number] [facility] [id number] PCN tele This is the same coverage they are running her other rx that are going through/covered. This is not what was just scanned in at appt yesterday. * Telephone Encounter - Chloe Hi LPN - 04/02/2023 11:56 AM EDT Electronic PA requested. * Telephone Encounter - Danii Amanda LPN - 04/02/2023 11:31 AM EDT Pharmacy sends request that patient needs prior authorization for Januvia 25mg. VELIA Reilly. Please advise. documented in this encounterBarberton [facility] Hospital08-02-2023 Evaluation note* Diagnosis Type 2 diabetes mellitus with stage 3a chronic kidney disease, with long-term current use of insulin (HCC) documented in this encounter [facility]08-02-2023 Evaluation note* Diagnosis Type 2 diabetes mellitus with stage 3a chronic kidney disease, with long-term current use of insulin (HCC) documented in this encounter [facility]08-01-2023 Miscellaneous Notes* Telephone Encounter - Jovanni Canela Ma - 04/01/2023 4:10 PM EDT Patient notified, verbalized understanding. Patient states she is not sure if she can be in that early but will try, and let office know if sheis unable. * Telephone Encounter - Ann Francois PA-C - 04/01/2023 3:58 PM EDT Please let her know I added a cortisol level which will need to be drawn poker in at 7:30 am if possible. Thanks, Angel Francois PA-C documented in this encounterBarberton Citizens Hospital08-01-2023 Miscellaneous Notes* Telephone Encounter - Seema Rankin LPN - 04/01/2023 4:03 PM EDT Pharmacy sending in a request for alternative medication to Lesvia. This is not formulary for pt. Seema Rankin LPN documented in this encounterBarberton Citizens Hospital08-01-2023 Instructions* Patient Instructions* Ann Francois PA-C - 04/01/2023 12:22 PM EDT Empagliflozin: Patient drug information Access upad Online for additional drug information, tools, and databases. Copyright 5287-4141 [employer]. All rights reserved. (For additional information see Empagliflozin: Drug information) You must carefully read the Consumer Information Use and Disclaimer below in order to understand and correctly use this information. Brand Names: US Jardiance Brand Names: Valdo Jardiance What is this drug used for? It is used to lower blood sugar in patients with high blood sugar (diabetes). It is used to lower the chance of from heart disease in certain people. What do I need to tell my doctor BEFORE I take this drug? If you are allergic to this drug; any part of this drug; or any other drugs, foods, or substances. Tell your doctor about the allergy and what signs you had. If you have any of these health problems: Acidic blood problem or type 1 diabetes. If you have kidney disease. If you are dehydrated, talk with your doctor. If you are or may be . Do not take this drug if you are in the second or third trimester of . If you are breast-feeding. Do not breast-feed while you take this drug. This is not a list of all drugs or health problems that interact with this drug. Tell your doctor and pharmacist about all of your drugs (prescription or OTC, natural products, vitamins) and health problems. You must check to make sure that it is safe for you to take this drug with all of your drugs and health problems. Do not start, stop, or change the dose of any drug withoutchecking with your doctor. What are some things I need to know or do while I take this drug? Tell all of your health care providers that you take this drug. This includes your doctors, nurses,pharmacists, and dentists. This drug may need to be stopped before certain types of surgery as yourdoctor has told you. If this drug is stopped, your doctor will tell you when to start taking this drug again after your surgery or procedure. Do not drive if your blood sugar has been low. There is a greater chance of you having a crash. To lower the chance of feeling dizzy or passing out, rise slowly if you have been sitting or lying down. Be careful going up and down stairs. Be careful in hot weather or while being active. Drink lots of fluids to stop fluid loss. If you are not able to eat or drink like normal, talk with your doctor. This includes if you are sick, fasting, or you are having certain procedures or surgery. If you cannot drink liquids by mouth or if you have upset stomach, throwing up, or diarrhea that does not go away; you need to avoid getting dehydrated. Contact your doctor to find out what to do. Dehydration may lead to new or worse kidney problems. High cholesterol has happened with this drug. If you have questions, talk with the doctor. Have blood work checked as you have been told by the doctor. Talk with the doctor. This drug may affect certain lab tests. Tell all of your health care providers and lab workers thatyou take this drug. It may be harder to control blood sugar during times of stress such as fever, infection, injury, orsurgery. A change in physical activity, exercise, or diet may also affect blood sugar. Check your blood sugar as you have been told by your doctor. Talk with your doctor about which glucose tests are best to use. Too much acid in the blood or urine (ketoacidosis) and severe urinary tract infections (UTIs) have happened. Ketoacidosis can be deadly. Both of these may need to be treated in a hospital. Kidney problems have happened. Sometimes, these may need to be treated in the hospital or with dialysis. Follow the diet and workout plan that your doctor told you about. If you are on a low-salt or salt-free diet, talk with your doctor. Talk with your doctor before you drink alcohol. A rare but very bad infection has happened with drugs like this one. This infection may be deadly. Get medical help right away if your genitals or the area between your genitals and rectum becomes tender, red, or swollen, and you have a fever or do not feel well. If you are 65 or older, use this drug with care. You could have more side effects. This drug may cause harm to the unborn baby if you take it while you are . If you are or you get while taking this drug, call your doctor right away. What are some side effects that I need to call my doctor about right away? WARNING/CAUTION: Even though it may be rare, some people may have very bad and sometimes deadly side effects when taking a drug. Tell your doctor or get medical help right away if you have any of thefollowing signs or symptoms that may be related to a very bad side effect: Signs of an allergic reaction, like rash; hives; itching; red, swollen, blistered, or peeling skin with or without fever; wheezing; tightness in the chest or throat; trouble breathing, swallowing, ortalking; unusual hoarseness; or swelling of the mouth, face, lips, tongue, or throat. Signs of fluid and electrolyte problems like mood changes, confusion, muscle pain or weakness, a heartbeat that does not feel normal, very bad dizziness or passing out, fast heartbeat, more thirst, seizures, feeling very tired or weak, not hungry, unable to pass urine or change in the amount of urine produced, dry mouth, dry eyes, or very bad upset stomach or throwing up. Signs of kidney problems like unable to pass urine, change in how much urine is passed, blood in the urine, or a big weight gain. Signs of too much acid in the blood (acidosis) like confusion; fast breathing; fast heartbeat; a heartbeat that does not feel normal; very bad stomach pain, upset stomach, or throwing up; feeling very sleepy; shortness of breath; or feeling very tired or weak. Signs of a urinary tract infection (UTI) like blood in the urine, burning or pain when passing urine, feeling the need to pass urine often or right away, fever, lower stomach pain, or pelvic pain. Vaginal yeast infection. Report itching or discharge. Yeast infection of the penis. Report pain, swelling, rash, or discharge. Low blood sugar can happen. The chance may be raised when this drug is used with other drugs for diabetes. Signs may be dizziness, headache, feeling sleepy or weak, shaking, fast heartbeat, confusion, hunger, or sweating. Call your doctor right away if you have any of these signs. Follow what you have been told to do for low blood sugar. This may include taking glucose tablets, liquid glucose, or some fruit juices. What are some other side effects of this drug? All drugs may cause side effects. However, many people have no side effects or only have minor sideeffects. Call your doctor or get medical help if you have any side effects that bother you or do not go away. These are not all of the side effects that may occur. If you have questions about side effects, call your doctor. Call your doctor for medical advice about side effects. You may report side effects to your national health agency. How is this drug best taken? Use this drug as ordered by your doctor. Read all information given to you. Follow all instructionsclosely. Take with or without food. Take in the morning. Drink lots of noncaffeine liquids unless told to drink less liquid by your doctor. Keep taking this drug as you have been told by your doctor or other health care provider, even if you feel well. What do I do if I miss a dose? Take a missed dose as soon as you think about it. If it is close to the time for your next dose, skip the missed dose and go back to your normal time. Do not take 2 doses at the same time or extra doses. If you are not sure what to do if you miss a dose, call your doctor. How do I store and/or throw out this drug? Store at room temperature in a dry place. Do not store in a bathroom. Keep all drugs in a safe place. Keep all drugs out of the reach of children and pets. Throw away unused or drugs. Do not flush down a toilet or pour down a drain unless you are told to do so. Check with your pharmacist if you have questions about the best way to throw out drugs. There may be drug take-back programs in your area. General drug facts If your symptoms or health problems do not get better or if they become worse, call your doctor. Do not share your drugs with others and do not take anyone else's drugs. Some drugs may have another patient information leaflet. If you have any questions about this drug,please talk with your doctor, nurse, pharmacist, or other health care provider. If you think there has been an overdose, call your poison control center or get medical care right away. Be ready to tell or show what was taken, how much, and when it happened. Last Reviewed [id number] Consumer Information Use and Disclaimer This information should not be used to decide whether or not to take this medicine or any other medicine. Only the healthcare provider has the knowledge and training to decide which medicines are right for a specific patient. This information does not endorse any medicine as safe, effective, or approved for treating any patient or health condition. This is only a brief summary of general information about this medicine. It does NOT include all information about the possible uses, directions, warnings, precautions, interactions, adverse effects, or risks that may apply to this medicine. This information is not specific medical advice and does not replace information you receive from the healthcare provider. You must talk with the healthcare provider for complete information about the risksand benefits of using this medicine. The use of this information is governed by the upad End User License Agreement, available at https://www.Storefront.Digital Dandelion/en/solutions/PolyMedix/about/maryam. 2020 [employer]. and its affiliates and/or licensors. All rights reserved. Use of [employer] is subject to the Subscription and License Agreement. Topic 86713 Version 70.0 documented in this encounterBarberton [facility] Hospital08-01-2023 History of Present illness Narrative* Ann Francois PA-C - 04/01/2023 11:40 AM EDT 72 year old female with c/o high blood sugar Stable angina pectoris (hcc) Primary hypertension Other hyperlipidemia Cardiovascular interval hx: 07/14/2020 cardiac cath diagnostic: normal coronaries Coronary Anatomy: Right Dominant LMT: _ The LMT is normal. LAD: _ The LAD is normal. LCX: _ The Circumflex is normal. RAMUS: _ Ramus Status: Not Applicable. RCA: _ RCA is normal. 07/10/2020 echo: LV size and LV SF WNL, EF 64%. No abnormal wall motion. RV size and RV SF WNL, RV SP estimated complicated by insufficient TR signal, PAP 3 mmHg, IVC not seen LA and RA normal size No apparent valvular disease Normal aorta. 06/26/[address] Olsen: RUIZ with stairs, chest pain in the evening, aching without radiation Current meds: Diltiazem HCl 360 mg 24-hour 1 capsule daily Fenofibrate 145 mg daily Use of NTG: No Chest pain, arm, jaw pain, neck, or upper back pain suggestive of angina: No pain but feels like and elephant sitting on her chest. Always has trouble breathing with any exertion. SOB: always SOB Dyspnea with exertion: Yes. orthopnea: No Cough : No racing or irregular heartbeats: No palpitations: occasional brief palpitation syncopal sx: No Headache: No Unexplainable fatigue No Leg swelling: No Nausea: No diaphoresis: not having hot flashes like she used to have Heartburn: No Claudication: No Smoking: No Following Low cholesterol, high fiber diet? Cutting back If on statin: muscle aches? Noted increased cramps in right biceps- persistent If on statin: GI sx or diarrhea? Not since off metformin Additional history none. Lab review: Didn't complete ordered lab Component Latest Ref Rng & Units 09/04/2021 03/11/2022 11/18/2022 WBC 3.70 - 11.00 k/uL 8.75 RBC 3.90 - 5.20 m/uL 4.26 Hemoglobin 11.5 - 15.5 g/dL 12.2 Hematocrit 36.0 - 46.0 % 38.1 MCV 80.0 - 100.0 fL 89.4 MCH 26.0 - 34.0 pg 28.6 MCHC 30.5 - 36.0 g/dL 32.0 RDW-CV 11.5 - 15.0 % 13.2 Platelet Count 150 - 400 k/uL 430 (H) MPV 9.0 - 12.7 fL 9.7 Neut% % 46.0 Abs Neut (ANC) 1.45 - 7.50 k/uL 4.03 Lymph% % 41.5 Abs Lymph 1.00 - 4.00 k/uL 3.63 Pettis% % 7.2 Abs Pettis <0.87 k/uL 0.63 Eosin% % 4.1 Abs Eosin <0.46 k/uL 0.36 Baso% % 0.7 Abs Baso <0.11 k/uL 0.06 Immature Gran % % 0.5 IMMATURE GRANS (ABS) <0.10 k/uL 0.04 NRBC /100 WBC 0.0 Absolute nRBC <0.01 k/uL <0.01 DTYPE Auto Protein, Total 6.3 - 8.0 g/dL 6.4 6.9 Albumin 3.9 - 4.9 g/dL 4.2 4.1 Calcium 8.5 - 10.2 mg/dL 9.4 9.9 Bilirubin, Total 0.2 - 1.3 mg/dL 0.2 0.3 Alkaline Phosphatase 34 - 123 U/L 52 67 AST 13 - 35 U/L 19 25 Glucose 74 - 99 mg/dL 98 115 (H) BUN 7 - 21 mg/dL 20 24 (H) Creatinine 0.58 - 0.96 mg/dL 1.04 (H) 1.14 (H) Sodium 136 - 144 mmol/L 140 138 Potassium 3.7 - 5.1 mmol/L 4.1 4.5 Chloride 97 - 105 mmol/L 102 103 CO2 22 - 30 mmol/L 28 23 Anion Gap 9 - 18 mmol/L 10 12 ALT 7 - 38 U/L 20 25 eGFR- >60 eGFR-All Other Races . 52 eGFR >=60 mL/min/1.73m 52 (L) Cholesterol, Total <200 mg/dL 181 180 224 (H) Triglyceride <150 mg/dL 90 83 108 HDL Cholesterol >39 mg/dL 51 59 63 LDL Cholesterol <100 mg/dL 112 (H) 104 (H) 139 (H) Non HDL Cholesterol <130 mg/dL 130 (H) 121 161 (H) Fasting Time hrs 12 12 14 VLDL Cholesterol <30 mg/dL 18 17 22 TC:HDL Ratio <5.10 3.55 3.05 3.56 LDL:HDL Ratio <2.54 2.20 1.76 2.21 Kam (obstructive sleep apnea) cpap intolerant Moderate persistent asthma without complication Link Trainer Teacher: none. Interval history: stable. Current medications: Wixela Inhub fluticasone-salmeterol 250-50 mcg per dose 1 puff twice daily: Albuterol MDI 90 mcg per actuation 2 puffs every 4 hours Worsening shortness of breath: No. Cough: No. Wheezing: No. Smoking: No. Compliant with medications: Yes. Using rescue inhaler: none for several months Type 2 diabetes mellitus with stage 3a chronic kidney disease, with long-term current use of insulin (formerly [facility]) Current medications: Dulaglutide 3 mg subcu weekly Lantus insulin 30 units subcu a.m. Taking medication as directed consistently? Yes 03/25-03/28/2023 a.m [phone], after 2h supper [phone] Medication side effects: Medical Issues / Complications: hypertension, hyperlipidemia, and cardiovascular disease Checking blood sugars at home? Yes. Watching diet? Somewhat, trying to avoid red meat, eating more veggies. Physical Activity: Regular Hypoglycemic spells? No Any visual disturbance? No Chest pain? No New numbness, tingling or loss of sensation? Chronic tingling in feet, no change, sometimes in hands also. Any recent foot problems, sores or rashes? Neuropathy worse in feet since sugars went up. Any recent or sudden weight loss? No Change in urination? No. If yes: Any recent illness? No Last eye exam: 11/18/22 no retinopathy. Last foot exam: up to date. HBA1C: Hemoglobin A1C (%) Date Value 11/18/2022 7.2 03/11/2022 6.8 09/04/2021 6.3 03/15/2021 6.7 ) CMP: Glucose 115 11/18/2022 BUN 24 11/18/2022 Creatinine 1.14 11/18/2022 Sodium 138 11/18/2022 Potassium 4.5 11/18/2022 Chloride 103 11/18/2022 CO2 23 11/18/2022 Protein, Total 6.9 11/18/2022 Albumin 4.1 11/18/2022 Calcium 9.9 11/18/2022 Alkaline Phosphatase 67 11/18/2022 Bilirubin, Total 0.3 11/18/2022 AST 25 11/18/2022 ALT 25 11/18/2022 Last 2 Encounter Wt Readings: Date: Wt: 10/18/2022 100.2 kg (220 lb 12.8 oz) 09/11/2022 102.1 kg (225 lb) Hypothyroidism, unspecified type Current medication: Levothyroxine 50 mcg daily AC 1 hour Taking as directed on an empty stomach? Yes. Thyroid pain: No. Mass effect: Yes. Change in energy level/ fatigue? Yes, worsening fatigue Sleep disturbance ? no. Temperature Intolerance: cold No, hot No. In females, menstrual cycle issues? none, If yes: Change in bowel habits? No. Affected by taking iron, constipated if doesn't. Constipation?as above Diarrhea? No. If yes: Weight changes?No. Memory issues: with mess with these pills I'm in a fog all the time Diaphoresis: No. Numbness, tingling: none Change in hair or skin? Falling out, skin is dry. Hair getting thinner. Other symptoms: Last 2 Encounter Wt Readings: Date: Wt: 10/18/2022 100.2 kg (220 lb 12.8 oz) 09/11/2022 102.1 kg (225 lb) Last thyroid labs: TSH Date Value 11/18/2022 3.990 mIU/L 09/04/2021 3.880 uU/mL 07/28/2020 3.460 uU/mL ) Rls (restless legs syndrome) Current medications: pregabalin 50mg 1-2 h prior to bedtime: stopped due fatigue beginning of January Trazodone 150mg daily HS So run down from medications could do much more than go from couch to chair and back. Asking for trazodone to be restarted. Has trouble shutting off my brain 11/29/2022 f/u Saba Gillespie: stopped gabapentin and transferred to pregabalin 10/18/[address] Chicho Carroll neurology: Notes indicate she did not tolerate PAP therapy. Continues complaints of tossing and turning through the night, RLS as well as elevated PLMI and PLM AI during prior sleep study. Started gabapentin 300 mg nightly and titrate up to 900 as needed. Has had low ferritin in the past but cannot tolerate iron. Recommended new sleep study. Component Latest Ref Rng & Units 02/17/2019 09/04/2021 11/18/2022 WBC 3.70 - 11.00 k/uL 7.23 8.75 RBC 3.90 - 5.20 m/uL 4.00 4.26 Hemoglobin 11.5 - 15.5 g/dL 11.2 (L) 12.2 Hematocrit 36.0 - 46.0 % 35.9 (L) 38.1 MCV 80.0 - 100.0 fL 89.8 89.4 MCH 26.0 - 34.0 pg 28.0 28.6 MCHC 30.5 - 36.0 g/dL 31.2 32.0 RDW-CV 11.5 - 15.0 % 13.4 13.2 Platelet Count 150 - 400 k/uL 344 430 (H) MPV 9.0 - 12.7 fL 10.0 9.7 Neut% % 55.0 46.0 Abs Neut (ANC) 1.45 - 7.50 k/uL 3.98 4.03 Lymph% % 32.2 41.5 Abs Lymph 1.00 - 4.00 k/uL 2.33 3.63 Pettis% % 7.2 7.2 Abs Pettis <0.87 k/uL 0.52 0.63 Eosin% % 5.0 4.1 Abs Eosin <0.46 k/uL 0.36 0.36 Baso% % 0.6 0.7 Abs Baso <0.11 k/uL 0.04 0.06 Immature Gran % % 0.5 IMMATURE GRANS (ABS) <0.10 k/uL 0.04 NRBC /100 WBC 0.0 Absolute nRBC <0.01 k/uL <0.01 <0.01 DTYPE Auto Nucleated Reds 0 /100 WBC 0.0 Diff Type Auto Diff Iron 41 - 186 ug/dL 45 TIBC 232 - 386 ug/dL 379 Transferrin Saturation 15 - 57 % 12 (L) Ferritin 14.7 - 205.1 ng/mL 32.0 Low vitamin d level Component Latest Ref Rng & Units 11/18/2022 Vitamin D 25 Hydroxy 31.0 - 80.0 ng/mL 42.7 HISTORIES FAMILY HISTORY Adopted: Yes Family history unknown: Yes PAST MEDICAL HISTORY Diagnosis Date Hypertension Hypothyroidism Insomnia 03/19/2016 Moderate persistent asthma without complication 07/11/2015 07/07/15 Methacholine Inhalation Challenge: 35% drop FEV1 at 2.5 mg/mL. Morbid obesity ([facility]) 04/04/2015 Patient has morbid obesity. KAM (obstructive sleep apnea) 09/26/2015 DME: [facility] Other hyperlipidemia 03/23/2019 RLS (restless legs syndrome) 02/15/2019 Stable angina pectoris ([facility]) 06/26/2020 Type 2 diabetes mellitus with stage 3 chronic kidney disease, with long-term current use of insulin([facility]) 04/04/2015 Dx: age 51. On metformin and [...] pipe, not around patient. Vaping Use Vaping Use: Never used Substance Use Topics Alcohol use: No Drug use: No ACTIVE PROBLEM LIST Type 2 Diabetes Mellitus With Stage 3a Chronic Kidney Disease, With Long-Term Current Use of Insulin ([facility]) Hypertension Hypothyroidism Moderate Persistent Asthma Without Complication KAM (obstructive sleep apnea) CPAP intolerant Insomnia Rls (Restless Legs Syndrome) Class 3 Severe Obesity With Body Mass Index (Bmi) of 40.0 to 44.9 in Adult ([facility]) Edema Other Hyperlipidemia Stable Angina Pectoris ([facility]) Multiple Gallstones Chronic Pain of Both Shoulders Current Outpatient Medications Medication Sig Dispense Refill rOPINIRole (REQUIP) 0.25 mg tablet TAKE 1 TABLET BY MOUTH EVERYDAY AT BEDTIME 90 tablet 1 fluticasone-salmeterol (WIXELA INHUB) 250-50 mcg/dose inhaler Inhale 1 Puff as instructed twice daily. Rinse and gargle mouth with water after each use. 3 Each 3 pregabalin (LYRICA) 75 mg capsule Take 1 capsule by mouth daily at bedtime for 30 days. Take at 0800 PM 30 capsule 2 insulin detemir U-100 (LEVEMIR FLEXTOUCH U-100 INSULIN) 100 unit/mL (3 mL) injection pen Inject 25 Units subcutaneously daily at bedtime. 9 Each 1 dilTIAZem HCl 360 mg 24 hr capsule Take 1 capsule by mouth once daily. 90 capsule 3 olmesartan (BENICAR) 20 mg tablet Take 1 tablet by mouth once daily. 90 tablet 3 dulaglutide (TRULICITY) 3 mg/0.5 mL pen injector Inject 3 mg subcutaneously one time a week. 4 Each5 levothyroxine (LEVOXYL) 50 mcg tablet Take 1 tablet by mouth once daily. Take on empty stomach. ForThyroid 90 tablet 3 MULTIVITAMIN ORAL Take by mouth once daily. fenofibrate nanocrystallized (TRICOR) 145 mg tablet Take 1 tablet by mouth once daily. 90 tablet 3 albuterol HFA (PROVENTIL HFA, VENTOLIN HFA) 90 mcg/actuation inhaler Inhale 2 Puffs as instructed four times daily as needed for Wheezing/Shortness of Breath. FOR WHEEZING AND SHORTNESS OF BREATH. 54g 3 No current facility-administered medications for this visit. BP CONTROLLED (<130/80) Never done COLORECTAL CANCER SCREENING due on 02/28/2022 URINE ALBUMIN:CREATININE RATIO due on 03/11/2023 DIABETIC FOOT EXAM due on 03/11/2023 MAMMOGRAM due on 06/03/2023 EXAM: VS: BP 118/60 Pulse 73 Resp 18 Wt 102.5 kg (226 lb) SpO2 97% BMI 42.70 kg/m Pleasant obese adult woman in no acute distress. Alert and oriented all spheres. Depressed with congruent affect, no suicidal ideation, normal speech, Speech normal. No deficits to learning or comprehension. Skin warm, dry, pink to lips and nailbeds. Normal turgor. Anterior scalp hair thinning. Respirations regular and unlabored. HEENT: NCAT. No scleral icterus or conjunctival injection. TM's clear. Nose and oropharynx free from injection or lesion. Oral membranes moist and pink. No cervical lymph nodes. Thyroid non-tender, no masses, or enlargement. Carotids pulses 2+/4+ without bruits. No JVD with HOB at 30 degrees. Chest is normal shape. Lungs are clear to all barn[place] with good air exchange through out. HRRR with systolic gr 3/6 murmur RSB 3rd ICS murmur w/o gallop which resolves with deep breath. No lifts, heaves, or rubs. Extrem: no clubbing or cyanosis. Edema: no pitting. Extremities are warm and pink with prompt capillary refill. ASSESSMENT/PLAN: 1. Stable angina pectoris (HCC) - ICD9: 413.9, ICD10: I20.8 (primary diagnosis) - CBC + DIFF 2. Primary hypertension - ICD9: 401.9, ICD10: I10 - Controlled - Continue current medications - Recommend home blood pressure monitoring, to bring results to next visit - Encouraged sodium restriction, DASH or Mediterranean diet - Recommend regular aerobic exercise 3. Other hyperlipidemia - ICD9: 272.4, ICD10: E78.49 refill - FENOFIBRATE NANOCRYSTALLIZED 145 MG TABLET 4. Moderate persistent asthma without complication - ICD9: 493.90, ICD10: J45.40 - Moderate persistent asthma stable - Continue current medications - Avoidance of triggers recommended 5. KAM (obstructive sleep apnea) CPAP intolerant - ICD9: 327.23, ICD10: G47.33 Discussed option for sleep med consult- she defers. 6. Type 2 diabetes mellitus with stage 3a chronic kidney disease, with long-term current use of insulin (HCC) - ICD9: 250.40, 585.3, V58.67, ICD10: E11.22, N18.31, Z79.4 - Improving control - Start sitagliptin (Januvia) Has stock of dulaglutide from sister who stopped: wants to use up rather than increase to 4.5mg dose - COMP METABOLIC PANEL - ALBUMIN/CREAT RATIO RND UR - SED RATE WESTERGREN - C-REACTIVE PROTEIN (CRP) 7. Hypothyroidism, unspecified type - ICD9: 244.9, ICD10: E03.9 - Instructed patient on importance of taking on an empty stomach either first thing in the morning or at bedtime. Weight increasing - Behavioral intervention and - Pharmacological intervention 8. RLS (restless legs syndrome) - ICD9: 333.94, ICD10: G25.81 Symptoms have been worse: check lab - CBC + DIFF - COMP METABOLIC PANEL - IRON + TIBC - FERRITIN BLD 9. Insomnia, unspecified type - ICD9: 780.52, ICD10: G47.00 Feels better on trazodone - TRAZODONE 150 MG TABLET 10. Low vitamin D level - ICD9: 790.6, ICD10: R79.89 Resolved on supplement 11. Chronic pain of both shoulders - ICD9: 719.41, 338.29, ICD10: M25.511, G89.29, M25.512 Known calcific tendonitis and bilateral AC joint degenerative changes. Has seen ortho, not doing exercises, too tired 12. Fatigue, unspecified type - ICD9: 780.79, ICD10: R53.83 Discussed options for treatment. Encouraged making goals for daily exercise, sunlight, pleasurable activities she can manage. Rec trial venlafaxine: somewhat relunctantly agreed Educated on new medication administration, warnings and cautions, common side effects, anticipated duration or therapy, and instructions on cessation management to avoid risks if stops medication. Patient choice was discussed in shared decision making. - CBC + DIFF - COMP METABOLIC PANEL - VENLAFAXINE ER 37.5 MG CAPSULE,EXTENDED RELEASE 24 HR - SED RATE WESTERGREN - C-REACTIVE PROTEIN (CRP) - CORTISOL BLD 13. Class 3 severe obesity due to excess calories with serious comorbidity and body mass index (BMI) of 40.0 to 44.9 in adult (HCC) - ICD9: 278.01, V85.41, ICD10: E66.01, Z68.41 Weight increasing - Behavioral intervention and - Pharmacological intervention Ann Francois PA-C documented in this encounterBar[facility] Miscellaneous Notes* Telephone Encounter - Maggy Akers MD - 01/29/2023 3:19 PM EDT Have tried to contact patient by phone multiple times today. Voicemail leaves no identifier and therefore cannot leave message due to HIPAA. Results show no evidence of malignancy and patient can return to routine annual screening mammograms. documented in this encounterBarber[facility]05-08-[facility]23 Nurse Note* Charmaine Mcgraw LPN - 01/06/2023 3:19 PM EDT REVIEW OF SYSTEMS: General: The patient denies fatigue, denies weight loss, denies weight gain, denies feeling hot, and denies feelings of cold. Eyes: The patient denies glaucoma, denies eye injury/surgery, does not wear glasses or contacts. Ear/Nose/Throat: The patient denies allergies, denies hayfever, denies ear infections, and denies bloody noses. Cardiovascular: The patient denies chest pain, NOTES heart disease, NOTES high blood pressure,denies cardiac stent, denies prior heart attack, denies irregular heart beat, NOTES high cholesterol, denies poor circulation, denies heart failure, other cardiac issues, denies claudication, denies cold feet, denies peripheral arterial stent. Respiratory: The patient denies tuberculosis, denies pneumonia, denies frequent cough, denies pulmonary embolism, denies shortness of breath, and denies coughing up blood. Gastrointestinal: The patient denies difficulty swallowing, denies acid reflux, denies ulcers, denies vomiting, denies jaundice/hepatitis, denies gallbladder problems, denies black or tarry stools, denies hemorrhoids, denies bleeding from rectum, denies diverticulitis, denies constipation, denies diarrhea, denies loss of stool control, and denies hernias. Kidney/Bladder: The patient denies kidney stones, denies urine infections, and denies bloody urine. Skin: The patient denies a history of skin cancer, denies bleeding/changing moles, and denies a history of skin rash. Neurologic: The patient denies a history of epilepsy/convulsions, denies headaches, denies head/spinal injuries, and denies stroke/TIA. Psychiatric: The patient denies psychiatric medications, denies depression, and denies voices, denies substance abuse. Endocrine: The patient NOTES thyroid disorders, NOTES diabetes, and denies hormonal problems. Hematologic: The patient denies a history of bruising, denies bleeding, and denies anemia, denies blood clots. Infections: The patient denies a history of measles and mumps, denies rheumatic fever, and denies sexually transmitted diseases. Musculoskeletal: The patient denies back pain/injury, denies back problems, denies sciatica, deniesknee/foot trouble, denies arthritis, or denies gout. When was patient's last Mammogram screening? N/A Last Colonoscopy: N/A Charmaine Mcgraw LPN documented in this encounterBar[facility]05-08-[facility]23 History of Present illness Narrative* Maggy Akers MD - 01/06/2023 3:07 PM EDT Chloe Guillory 1950 REFERRING PHYSICIAN: No ref. provider found CHIEF COMPLAINT: Consult (breast) HPI: The patient is a 72 year old female presents with abnormal ultrasound of left breast. The abnormal lesion is seen by ultrasound to be of the left breast at 2:00 and 7 cm from the nipple, < 1 cm. She denies palpable breast masses. She denies nipple discharge. She has an unknown family history as she is adopted Her gynecological history is as follows: menarche onset at age 16, , first at age 18,breast feeding 2 y, BCP use < 2 months, IUD use, surgical menopause at age 51 with BSO, denies HRT use PAST MEDICAL HISTORY Diagnosis Date Hypertension Hypothyroidism Insomnia 03/19/2016 Moderate persistent asthma without complication 07/11/2015 07/07/15 Methacholine Inhalation Challenge: 35% drop FEV1 at 2.5 mg/mL. Morbid obesity (HCC) 04/04/2015 Patient has morbid obesity. KAM (obstructive sleep apnea) 09/26/2015 DME: [facility] Other hyperlipidemia 03/23/2019 RLS (restless legs syndrome) 02/15/2019 Stable angina pectoris (HCC) 06/26/2020 Type 2 diabetes mellitus with stage 3 chronic kidney disease, with long-term current use of insulin(HCC) 04/04/2015 Dx: age 51. On metformin and [...] ABDOMINAL HYSTERECT W/WO RMVL TUBE OVARY 2000 Current Outpatient Medications Medication Sig fluticasone-salmeterol (WIXELA INHUB) 250-50 mcg/dose inhaler Inhale 1 Puff as instructed twice daily. Rinse and gargle mouth with water after each use. pregabalin (LYRICA) 75 mg capsule Take 1 capsule by mouth daily at bedtime for 30 days. Take at 0800 PM insulin detemir U-100 (LEVEMIR FLEXTOUCH U-100 INSULIN) 100 unit/mL (3 mL) injection pen Inject 25 Units subcutaneously daily at bedtime. dilTIAZem HCl 360 mg 24 hr capsule Take 1 capsule by mouth once daily. olmesartan (BENICAR) 20 mg tablet Take 1 tablet by mouth once daily. dulaglutide (TRULICITY) 3 mg/0.5 mL pen injector Inject 3 mg subcutaneously one time a week. levothyroxine (LEVOXYL) 50 mcg tablet Take 1 tablet by mouth once daily. Take on empty stomach. ForThyroid MULTIVITAMIN ORAL Take by mouth once daily. fenofibrate nanocrystallized (TRICOR) 145 mg tablet Take 1 tablet by mouth once daily. albuterol HFA (PROVENTIL HFA, VENTOLIN HFA) 90 mcg/actuation inhaler Inhale 2 Puffs as instructed four times daily as needed for Wheezing/Shortness of Breath. FOR WHEEZING AND SHORTNESS OF BREATH. ALLERGIES: Dust, Jardiance [Empagliflozin], Mold, and Victoza [Liraglutide] PERSONAL HISTORY: Social History Tobacco Use Smoking status: Never Smokeless tobacco: Never Tobacco comments: NO smoking in childhood home. Spouse smokes pipe, not around patient. Vaping Use Vaping Use: Never used Substance Use Topics Alcohol use: No Drug use: No FAMILY HISTORY Adopted: Yes Family history unknown: Yes The review of systems data was entered by the nurse and reviewed by ar Nursing Notes: Charmaine Mcgraw LPN 01/06/2023 3:21 PM Signed REVIEW OF SYSTEMS: General: The patient denies fatigue, denies weight loss, denies weight gain, denies feeling hot, and denies feelings of cold. Eyes: The patient denies glaucoma, denies eye injury/surgery, does not wear glasses or contacts. Ear/Nose/Throat: The patient denies allergies, denies hayfever, denies ear infections, and denies bloody noses. Cardiovascular: The patient denies chest pain, NOTES heart disease, NOTES high blood pressure,denies cardiac stent, denies prior heart attack, denies irregular heart beat, NOTES high cholesterol, denies poor circulation, denies heart failure, other cardiac issues, denies claudication, denies cold feet, denies peripheral arterial stent. Respiratory: The patient denies tuberculosis, denies pneumonia, denies frequent cough, denies pulmonary embolism, denies shortness of breath, and denies coughing up blood. Gastrointestinal: The patient denies difficulty swallowing, denies acid reflux, denies ulcers, denies vomiting, denies jaundice/hepatitis, denies gallbladder problems, denies black or tarry stools, denies hemorrhoids, denies bleeding from rectum, denies diverticulitis, denies constipation, denies diarrhea, denies loss of stool control, and denies hernias. Kidney/Bladder: The patient denies kidney stones, denies urine infections, and denies bloody urine. Skin: The patient denies a history of skin cancer, denies bleeding/changing moles, and denies a history of skin rash. Neurologic: The patient denies a history of epilepsy/convulsions, denies headaches, denies head/spinal injuries, and denies stroke/TIA. Psychiatric: The patient denies psychiatric medications, denies depression, and denies voices, denies substance abuse. Endocrine: The patient NOTES thyroid disorders, NOTES diabetes, and denies hormonal problems. Hematologic: The patient denies a history of bruising, denies bleeding, and denies anemia, denies blood clots. Infections: The patient denies a history of measles and mumps, denies rheumatic fever, and denies sexually transmitted diseases. Musculoskeletal: The patient denies back pain/injury, denies back problems, denies sciatica, deniesknee/foot trouble, denies arthritis, or denies gout. When was patient's last Mammogram screening? N/A Last Colonoscopy: N/A Charmaine Mcgraw LPN PHYSICAL EXAMINATION: General: The patient is 72 year old female, well nourished, well hydrated in no acute distress. Thepatient is oriented to time, place, and person. VITALS: Blood pressure 128/86, pulse 89, temperature 36.1 C (96.9 F), height 154.9 cm (5' 1), weight 102.4 kg (225 lb 12.8 oz), SpO2 97 %. Body mass index is 42.66 kg/m . Head - Normocephalic. EOM intact with sclera clear and no icterus noted. Wearing glasses Neck - supple with no jugular venous distention noted. Trachea is midline. No thyroid enlargement or thyroid nodules detected. No masses noted. Chest/breast - no asymmetry of breasts noted - bilateral ptotic - no suspicious skin lesions noted,no nipple discharge and both nipples everted, no breast masses noted - I applied ultrasound to the area to try to identify the lesion that is described at 2:00 and 7 cm from nipple and I could not identify it Lungs - clear to auscultation. Normal breath sounds. No rales/rhonchi/wheezing noted. No labored breathing noted, such as retractions. No cough heard. Heart - normal S1 and S2 auscultated. No rubs/clicks/murmurs noted. Regular rate. Abdomen - soft and benign. Difficult to determine if any masses or organomegaly due to body habitus. Extremities - no calf tenderness noted. No pitting edema noted. Skin - normal skin integrity. Lymph - no cervical adenopathy detected, no supraclavicular adenopathy detected, no axillary adenopathy detected Neurological - gait normal, no focal deficits noted Psych - calm and appropriate Assessment IMPRESSION: abnormal ultrasound of breast PLAN: I have discussed the above with the patient. I have recommended US guided needle biopsy of the left breast I have explained the procedure to the patient. Because I cannot localize the lesion to biopsy it, I will make a referral to [facility] center. The patient wishes to proceed. I have answered all questions to the patient s satisfaction and the patient has no further questions. I have confirmed and edited as necessary, the PFSH and ROS obtained by others. . Diagnoses: (R92.8) Abnormal ultrasound of breast (primary encounter diagnosis) Return to Clinic: The patient will be scheduled for procedure above. I have placed the order in [employer]. I have contacted the [facility] breast imaging center by email. I will call the patient for the pathology results. The patient acknowledges the above. Medical Decision Making: Problems: Moderate: New problem with uncertain prognosis Data: Unique test result(s) reviewed: 1 Risk: Low: Low risk from testing/treatment Medical Decision Making Level: 3 - Low Maggy Akers MD documented in this encounterBarber[facility]05-06-[address] Skaggs [facility] January 04, 2023 4:48pm Note Date/Time January 04, 2023 4:46pm [facility] Medical Records Department [address] [place] [address] Emergency Department Summary 01/04/23 MR#: [id number] Acct: [id number] Name: CHLOE GUILLORY Rep #:[id number] : 1950 72 From: Eliud Skaggs MD PCP: Dr. Scar Ceballos MD Status:P RE ER Location: ED HPI History of Present Illness Chief Complaint: Back Narrative Narrative: Presents with lower back pain. Patient states she gets this about once every year or so. About 3 or so days ago she was doing a lot of cleaning in her house. She was moving boxes. Picking things up twisting and bending and scrubbing. This is not something shenormally does. She did not get sudden onset of pain but she got slow progression of pain that started in the evening afterwards. She has been sore for the last few days. She has never had any radicular symptoms. No bowel or bladder dysfunction. No fevers or chills or recent infections. She states earlier today she went out and cut and stacked firewood and this aggravated it and prompted her to come in. She tried putting heat on it but that seemed to make it worse. She still has no neurologic symptoms at all. Again no bowel or bladder symptoms. No history of cancers. No recent weight loss. It is better if she stays still and worse if she twists. The pain is in the upper and mid lumbar area. It really does not radiate anywhere. She she has no radiation to the abdomen. No hematuria or history of kidney stones. No tearing ripping or severe pain. Breathing is normal. [facility] Medical History Anemia Arthritis Diabetes History of irregular heartbeat History of renal disease History of steroid therapy History of stress test Hoarseness Hx of endometriosis Hypertension Insulin dependent diabetes mellitus Post-menopausal Restless legs Shortness of breath on exertion Sleep apnea Thyroid disease Wears glasses Home Medications albuterol sulfate 90 mcg/actuation aerosol inhaler 2 puff inhalation Q6H PRN PRNSob &/Or Wheezing 03/27/19 [History Last Taken Unknown] diltiazem HCl 360 mg tablet,extended release 24 hr 360 mg PO DAILY 03/27/19 [History Last Taken Unknown] fenofibrate nanocrystallized 145 mg tablet 145 mg PO DAILY 03/27/19 [History Last Taken Unknown] levothyroxine 50 mcg tablet 50 mcg PO DAILY 03/27/19 [History Last Taken 05/07/22] fluticasone 250 mcg-salmeterol 50 mcg/dose blistr powdr for inhalation (Wixela Inhub) 1 inh inhalation BID 04/30/22 [History Last Taken Unknown] olmesartan 20 mg tablet 20 mg PO DAILY 04/30/22 [History Last Taken Unknown] dulaglutide 3 mg/0.5 mL subcutaneous pen injector 3 mg subcut QWEEK 01/04/23 [History Last Taken Unknown] hydrocodone-acetaminophen 5-325mg 5mg-325mg 1 tab PO Q6H PRN PRN Pain 3 days #12TABLETS 01/04/23 [Rx Last Taken Unknown] insulin detemir U-100 100 unit/mL (3 mL) subcutaneous pen 25 unit subcut QHS 01/04/23 [History Last Taken Unknown] pregabalin 75 mg capsule 75 mg PO QHS 01/04/23 [History Last Taken Unknown] Allergy/AdvReac Type Severity Reaction Status Date / Time liraglutide [From Victoza] Allergy PT UNSURE Verified 01/04/23 16:24 OF REACTION empagliflozin AdvReac Other Verified 01/04/23 16:35 [From Jardiance] Surgical History History of cardiac catheterization Hx of appendectomy Hx of hysterectomy Hx of tonsillectomy Social History Smoking Status: Never smoker ROS ROS ED Constitutional Constitutional ED: Denies chills, fever(s) or sweats Eyes Eyes: Denies change in vision ENT ENT ED: Denies rhinorrhea Cardiovascular Cardiovascular: Denies chest pain or palpitations Respiratory/Chest Respiratory/Chest: Denies dyspnea or dyspnea on exertion Gastrointestinal Gastrointestinal: Denies abdominal pain, constipation, diarrhea, melena, nausea or vomiting Genitourinary Genitourinary ED: Denies dysuria, hematuria or urinary frequency Musculoskeletal Musculoskeletal: Reports back pain; Denies myalgias or neck pain Integumentary Denies abscess, Abrasions or rash Neurologic Neurologic: Denies headache(s), paresthesias or weakness Hematologic/Lymphatic Hematologic/Lymphatic: Denies easy bleeding or easy bruising Allergic/Immunologic Allergic/Immunologic ED: Denies urticaria EXAM Physical Exam Narrative Exam Narrative: CONSTITUTIONAL: Patient is nontoxic in appearance. The patient looks mildly uncomfortable. Work of breathing looks normal. HEENT: No notable trauma. Mucous membranes moist. . No sign of intraoral infection. EYES: No conjunctival injection. No pallor. NECK: No meningismus. No JVD. CARDIOVASCULAR: Regular rate. Regular rhythm. No notable murmur. No JVD. RESPIRATORY: No respiratory distress. Breathing is unlabored. No wheezes. No rhonchi. No rales. No pain with a deep breath. GASTROINTESTINAL: Not distended. Bowel sounds are normal. No tenderness. No guarding. No rebound. No palpable mass. No bruit. GENITOURINARY: No tenderness over the bladder. No CVA tenderness. MUSCULOSKELETAL: Atraumatic. No peripheral edema. No cord. No tenderness along the deep venous system. No asymmetry. Distal pulses are intact. NEUROLOGICAL: Patient is alert and oriented. No focal deficit noted. She does have discomfort with palpation bilateral paraspinals at around L1-L4. No palpable spasm. She has some excoriation where she has been scratching but no erythema or lesions. Sensation is completely normal Patient can stand on toes and heels and do squats She has +2 bilateral patellar Achilles reflex both +2. SKIN: No noted rashes. No diaphoresis. No vesicles noted. No notable pallor. PSYCHIATRIC: Patient is calm. Mood is appropriate. Const Vital Signs: 01/04/23 16:23 Temperature 98 F Temperature Source Temporal Pulse Rate 82 Respiratory Rate 20 H Blood Pressure 133/64 H Blood Pressure Mean 87 Pulse Ox 99 Oxygen Delivery Method Room Air MDM MDM MDM Narrative Medical decision making narrative: Patient has a history of intermittent back pain. She has never had surgery. Other than the age of 72 she has no red flags of back pain. She has a mechanical cause of this. I do not think imaging or blood work are needed at this point. Certainly if the pain goes on for a period of time or couple weeks we may need to do further imaging. She states she has gotten pain meds before and it helps within a few days. I will give her a shot of morphine which she is used here. I do not want to usenonsteroidals as she has a history of kidney disease. We will get her home on ashort course of hydrocodone. She has used this before per her online prescribing report and on review of prior medical records. We discussed returning with worsening pain, fevers, any bowel bladder dysfunction or pain or numbness radiating down her legs. Discharge Plan Triage Chief Complaint: Back ED Provider: Eliud Skaggs Dx/Rx/DC Orders Clinical Impression: Acute lumbar myofascial strain, History of kidney disease Instructions: ED Back Sprain/Strain Prescriptions: New hydrocodone-acetaminophen [hydrocodone-acetaminophen] 5-325 mg tablet 1 tab PO Q6H PRN PRN (Reason: Pain) 3 Days Qty: 12 0RF No Action levothyroxine 50 MCG tablet 50 mcg PO DAILY albuterol sulfate 1 INHALER inhaler 2 puff inhalation Q6H PRN PRN (Reason: Sob &/Or Wheezing) diltiazem HCl 360 MG tablet extended release 24 hr 360 mg PO DAILY fenofibrate nanocrystallized 145 MG tablet 145 mg PO DAILY fluticasone propion-salmeterol [Wixela Inhub] 250-50 mcg/dose blister with device 1 inh INHALATION BID olmesartan 20 mg tablet 20 mg PO DAILY pregabalin 75 mg Capsule 75 mg PO QHS Levemir FlexTouch U100 Insulin 100 unit/mL (3 mL) Insulin Pen 25 unit SUBCUT QHS dulaglutide 3 mg/0.5 mL Pen Injector 3 mg SUBCUT QWEEK Primary Care Provider: Scar Ceballos Referrals: Scar Ceballos MD [Primary Care Provider] - 3-5 Days if not improving Disposition Disposition: Home, Self Care What to do if you have Problems For any increased pain, shortness of breath, bleeding, nausea or vomiting, chestpain, or any unexpected problems, contact your Primary Care Provider. Call [facility] ([phone]) or report to the closest Emergency Room. Call 911 if necessary. 01/04/23 1648 <Electronically signed by Eliud Skaggs MD> Cosigner Signature (if applicable): CC: Dr. Scar Ceballos MD ~ Signed [facility] Work Phone: [phone] 155-683605-05-2023 Miscellaneous Notes* Telephone Encounter - Taya Ho Pss - 01/03/2023 10:22 AM EDT Patient has been identified by name and date of : Yes Requested Prescriptions Pending Prescriptions Disp Refills fluticasone-salmeterol (WIXELA INHUB) 250-50 mcg/dose inhaler 3 Each 3 Sig: Inhale 1 Puff as instructed twice daily. Rinse and gargle mouth with water after each use. MAYELIN-11/21/22 Labs-11/18/22 NOV-05/26/23 med filled 08/23/22 RX INSTRUCTIONS: Patient aware RX will be sent to pharmacy. No need to notify patient. Taya Ho Pss documented in this encounterBarberton [facility]05-02-2023 Instructions* Patient Instructions* Molly Duque PA-C - 12/31/2022 3:08 PM EDT 1) increase Lyrica to 75 mg nightly 2) Let me know if how you are doing in a couple of weeks. If no improvement, will start Requip instead 3) once tossing and turning is well controlled, please call, and will have Dr. Carroll place the order for the sleep study as I do not want to order incorrect test. documented in this encounterBarberton Citizens Hospital05-02-2023 History of Present illness Narrative* Molly Duque PA-C - 12/31/2022 2:33 PM EDT Images from the original note were not included. [facility] Name: Chloe Guillory Age: [age] year old Gender: female Primary Care Provider: Ann Francois PA-C Assessment/Plan: The primary encounter diagnosis was Restless legs syndrome. A diagnosis of KAM (obstructive sleep apnea) was also pertinent to this visit. This is a 72 year old female here for follow up for RLS, insomnia, and KAM. Previous polysomnogram from 2014 confirmed RLS and periodic limb movement disorder. Patient describes insomnia related to tossing and turning currently being treated as RLS. Previously trialed on gabapentin with benefit butside effect of daytime fatigue. Patient was last seen by Saba Gillespie PA-C and switched to Lyrica 50 mg. Patient tolerating Lyrica well without side effects but reports no improvement in symptoms. Will increase to 75 mg to see if better response. Recommended taking around 20:00 pm instead of 22:00. Would be hesistant to increase further due to CKD. Should Lyrica fail to improve symptoms, consider switching to Requip. Discussed possible side effects with patient including sudden sleep attacks, nausea, hypotension, and rarely hallucinations. Discussed risk of augmentation and what to watch for if we end up starting this medication. Risk factors for RLS include previous history of low ferritin (patient cannot tolerate ferritin supplements) and CKD. Recommended patient continue following with PCP for kidney disease. Regarding KAM, patient not currently compliant with CPAP. Initial plan by Dr. Carroll was to better control insomnia and RLS before pursuing CPAP treatment. Per Dr. Carroll's note, will need repeat PSG. Patient to avoid any activities that require sustained concentration if fatigued including driving. Plan: - Increase Lyrica to 75 mg nightly. Take at 20:00. Hesitant to increase further due to CKD - Patient to call with update in 3-4 weeks. If no improvement, discontinue and start Requip - Regarding KAM, once RLS and insomnia better controlled, order PSG No orders of the defined types were placed in this encounter. No follow-ups on file. Chart, labs,and relevant images reviewed. Chief Complaint:Follow Up Chart Review: HPI: This is a pleasant 72-year-old female here for follow up for restless legs, insomnia, and sleep apnea. She was last seen for the same reason by Saba Gillespie PA-C 11/29/22. At that time, gabapentinwas switched to pregabalin 50 mg nightly for RLS. Patient was previously started on gabapentin which had some benefit but had the side effect of daytime fatigue. Patient reports that she continues to toss and turn with the pregabalin. She is taking it around 22:00. No notable side effects but no improvement. Patient is aware of good sleep hygiene and avoids napping during the day. Drinks coffee in the morning only. Patient has known history of sleep apnea, not currently on CPAP. Reports tossing and turning would interfere with CPAP usage. ACTIVE PROBLEM LIST Type 2 Diabetes Mellitus With Stage 3a Chronic Kidney Disease, With Long-Term Current Use of Insulin ([facility]) Hypertension Hypothyroidism Moderate Persistent Asthma Without Complication KAM (obstructive sleep apnea) CPAP intolerant Insomnia Rls (Restless Legs Syndrome) Class 3 Severe Obesity With Body Mass Index (Bmi) of 40.0 to 44.9 in Adult ([facility]) Edema Other Hyperlipidemia Stable Angina Pectoris ([facility]) Multiple Gallstones Chronic Pain of Both Shoulders PAST MEDICAL HISTORY Diagnosis Date Hypertension Hypothyroidism Insomnia 03/19/2016 Moderate persistent asthma without complication 07/11/2015 07/07/15 Methacholine Inhalation Challenge: 35% drop FEV1 at 2.5 mg/mL. Morbid obesity ([facility]) 04/04/2015 Patient has morbid obesity. KAM (obstructive sleep apnea) 09/26/2015 DME: [facility] Other hyperlipidemia 03/23/2019 RLS (restless legs syndrome) 02/15/2019 Stable angina pectoris ([facility]) 06/26/2020 Type 2 diabetes mellitus with stage 3 chronic kidney disease, with long-term current use of insulin([facility]) 04/04/2015 Dx: age 51. On metformin and victoza which she does not think works well for her lately She was started on jardiance which made her have suicidal ideation So she stopped the medication. Medications: Reviewed Current Outpatient Medications on File Prior to Visit Medication Sig pregabalin (LYRICA) 50 mg capsule Take 1 capsule by mouth once daily for 90 days. Take at night 1-2hours before bed. insulin detemir U-100 (LEVEMIR FLEXTOUCH U-100 INSULIN) 100 unit/mL (3 mL) injection pen Inject 25 Units subcutaneously daily at bedtime. dilTIAZem HCl 360 mg 24 hr capsule Take 1 capsule by mouth once daily. olmesartan (BENICAR) 20 mg tablet Take 1 tablet by mouth once daily. dulaglutide (TRULICITY) 3 mg/0.5 mL pen injector Inject 3 mg subcutaneously one time a week. levothyroxine (LEVOXYL) 50 mcg tablet Take 1 tablet by mouth once daily. Take on empty stomach. ForThyroid fluticasone-salmeterol (WIXELA INHUB) 250-50 mcg/dose inhaler Inhale 1 Puff as instructed twice daily. Rinse and gargle mouth with water after each use. MULTIVITAMIN ORAL Take by mouth once daily. fenofibrate nanocrystallized (TRICOR) 145 mg tablet Take 1 tablet by mouth once daily. albuterol HFA (PROVENTIL HFA, VENTOLIN HFA) 90 mcg/actuation inhaler Inhale 2 Puffs as instructed four times daily as needed for Wheezing/Shortness of Breath. FOR WHEEZING AND SHORTNESS OF BREATH. No current facility-administered medications on file prior to visit. ALLERGIES Allergen Reactions Dust Cough Jardiance [Empaglif* Other: See Comments Became suicidal Mold Shortness of Breath Victoza [Liraglutid* Other: See Comments Thinks she had thyroid issues from it. FAMILY HISTORY Adopted: Yes Family history unknown: Yes PAST SURGICAL HISTORY Procedure Laterality Date APPENDECTOMY 1957 LAPAROSCOPY DIAGNOSTIC 2000 LEFT HEART CATH,PERCUTANEOUS 07/14/2020 wnl REMOVAL GALLBLADDER 05/07/2022 TONSILLECTOMY AND ADENOIDECTOMY HX 1957 TOTAL ABDOMINAL HYSTERECT W/WO RMVL TUBE OVARY 2000 Social Hx: @Alcohol Use: Not on file Tobacco Use: Low Risk Smoking Tobacco Use: Never Smokeless Tobacco Use: Never Passive Exposure: Not on file 12/31/22 1421 BP: 114/73 Pulse: 73 Neurologic Exam Cognitive and Language: Alert and answered questions appropriately. Language was fluent. Cranial Nerves: Extraocular movements were full with no diplopia or nystagmus. Facial strength was symmetric. Motor: Can move all four extremities antigravity Sensory: Normal to light touch x 4 Coordination: Normal gait. Negative romberg. Normal finger to nose. Labs: Lab Results Component Value Date WBC 8.75 11/18/2022 HCT 38.1 11/18/2022 MCV 89.4 11/18/2022 PLT 430 (H) 11/18/2022 Lab Results Component Value Date HBA1C 7.2 11/18/2022 HBA1C 6.8 03/11/2022 HBA1C 6.3 09/04/2021 HBA1C 6.7 03/15/2021 HBA1C 6.7 10/04/2020 Cholesterol, Total Date Value Ref Range Status 11/18/2022 224 (H) <200 mg/dL Final Comment: <200 mg/dL, Desirable 200-239 mg/dL, Borderline high >239 mg/dL, High HDL Cholesterol Date Value Ref Range Status 11/18/2022 63 >39 mg/dL Final Comment: 40-59 mg/dL, Acceptable >59 mg/dL, High: Negative risk factor for coronary heart disease <40 mg/dL, Low: Positive risk factor for coronary heart disease LDL Cholesterol Date Value Ref Range Status 11/18/2022 139 (H) <100 mg/dL Final Comment: <100 mg/dL, Optimal 100-129 mg/dL, Near optimal/above optimal 130-159 mg/dL, Borderline high 160-189 mg/dL, High >189 mg/dL, Very high Secondary prevention optimal LDL Cholesterol levels are recommended to be < 70 mg/dL Triglyceride Date Value Ref Range Status 11/18/2022 108 <150 mg/dL Final Comment: <150 mg/dL, Normal 150-199 mg/dL, Borderline high 200-499 mg/dL, High >499 mg/dL, Very high Radiology: MRI Head/Brain - Last 2 Impressions No resulted procedures found. This note was dictated using [employer]and[employer] speech recognition software and may contain some errors that were a result of the program not accurately transcribing what was dictated, despite efforts to make corrections. Note that unless urgent, test and MRI results will be discussed at next follow- up visit. PROMIS (Patient-Reported Outcomes Measurement Information System) is a set of person-centered measures that evaluates and monitors physical, social, and emotional health. It can be used with the general population and with individuals living with chronic conditions. PROMIS 10: PHYSICAL AND MENTAL HEALTH: PHQ-9 04/03/2021 09/16/2016 05/16/2016 Score 14 0 9 Time spent included 30 min on the day of service, which included preparing to see the patient, [id number] patient care, completing clinical documentation, obtaining and/or reviewing separately obtained history, performing a medically appropriate examination, counseling and educating the patient/family/caregiver and ordering medications, tests, or procedures. documented in this encounterBarberton [facility]05-02-2023 History of Present illness Narrative* Luly Ma RDMS - 12/31/2022 1:30 PM EDT Radiology Service Progress Note PATIENT NAME: Chloe Guillory DATE OF SERVICE: December 31, 2022 TIME: 1:50 PM PATIENT IDENTITY VERIFICATION COMPLETED USING TWO (2) IDENTIFIERS: Name and Date of confirmedby patient verbally. FALL SCREENING: Has the patient had 2 falls in the last year or 1 fall with injury or currently using an Ambulatory Assistive Device (Walker, Cane, Wheelchair, Crutches, etc.)? No PATIENT GENDER DATA: Female. status: : No status: NO. PATIENT RELEVANT IMPLANT DATA REVIEWED: Not Applicable RADIOLOGY DEPARTMENT: Ultrasound PERIPHERAL IV DATA: Not applicable SIGNED BY: Luly Ma RDMS December 31, 2022 1:50 PM documented in this encounterBarberton Citizens Hospital04-25-2023 Miscellaneous Notes* Telephone Encounter - Marcia Moctezuma LPN - 12/24/2022 1:49 PM EDT Please advise on pts lyrica. States it is helping very little. Scheduled for June. Marcia Moctezuma LPN * Telephone Encounter - Rita Rosario - 12/24/2022 11:59 AM EDT No I offered jun 16 at 10:20 that was to early in the morning for her. Rita JIMENEZ * Telephone Encounter - Marcia Moctezuma LPN - 12/24/2022 11:48 AM EDT Is there anything sooner? June is quite a ways out and it can be with any sleep KIKE? Marcia Moctezuma LPN * Telephone Encounter - Rita Rosario - 12/24/2022 11:36 AM EDT PT's appt in March has been cancelled and rescheduled with Dr. Carroll for June, she is still asking advice pertaining to the medication she was put on. Please assist and advise. Rita JIMENEZ * Telephone Encounter - Jade Riggins LPN - 12/24/2022 8:40 AM EDT Please contact patient and assist in re-scheduling with a sleep KIKE, she is scheduled for 03/18/23 with Saba and this is a sleep patient. Saba doesn't see sleep. Please see providers response below.Thank you! Jade Riggins LPN This is a sleep patient who I saw on a Friday because Dr. Carrlol was here, it was a misschedule and she was told to follow up with a sleep provider but she is scheduled to see me in March. Would you beable to reschedule her for a sleep follow up. Than k you, Saba Gillespie PA-C * Telephone Encounter - Nathalia Reina RN - 12/23/2022 1:18 PM EDT Patient calling Saba Gillespie PA-C with update. Patient states Saba ordered her pregabalin 50 mg on 11/29/22 for restless legs/sx's. Patient states the medication has helped very little. Asking for Saba to advise her please. Thank you. documented in this encounterBarberton Citizens Hospital03-31-2023 Instructions* Patient Instructions* Saba Gillespie PA-C - 11/29/2022 3:50 PM EDT Stop Gabapentin and start Lyrica 50mg. Take at night 1-2 hours before bed Yoga and acupuncture are low-risk strategies that may have some benefit Mental alerting activities, such as working on a computer or doing crossword puzzles, at times of rest or boredom Avoidance of aggravating factors, including consideration of withdrawal of possibly predisposing medications Moderate regular exercise A trial of abstinence from caffeine and alcohol For symptomatic relief - walking, bicycling, soaking the affected limbs, and leg massage, includingpneumatic compression Let us know if your have any side effects Let us know if your vision changes do not improve in a few days Follow up in 3 months or sooner. documented in this encounterBarberton Citizens Hospital03-31-2023 History of Present illness Narrative* Saba Gillespie PA-C - 11/29/2022 3:41 PM EDT ESTABLISHED PATIENT VISIT Last visit: 10/18/[address] Carroll ASSESSMENT/PLAN: 1. Insomnia, unspecified type - ICD9: 780.52, ICD10: G47.00 (primary diagnosis) 2. RLS (restless legs syndrome) - ICD9: 333.94, ICD10: G25.81 3. KAM (obstructive sleep apnea) - ICD9: 327.23, ICD10: G47.33 Patient with known KAM for which she has not previously tolerated PAP (reviewed prior sleep recordsfrom >5 years ago). Primary complaint is tossing and turning through the night. Etiology of which is uncertain but suspect patient with RLS given subjective history as well as elevated PLMI and PLMAI during prior sleep study. Never treated directly for tossing and turning but some response to amb ien and lunesta in the past. At this time will attempt to treat as RLS. Will place on trial of gabapentin 300mg QHS and titrate up to 900mg QHS as need and tolerated. SE and ADRs d/w pt. Note Ferritin low in the past but pt states cannot tolerate Fe. Finally, patient with known history of KAM, and will need treatment. At present pt not wanting PAP but feel it would be the best means of treating her condition. Will first attempt to control tossing and turning through the night. At time of followup if those symptoms have improved, then will again approach KAM. Pt will need new sleep study (split if AHI >5) given prior study completed by [facility] and not CMS guidelines. Discussed with patient:the physiology of OSAS, medical conditions associated with OSAS (DM, HTN, CAD, Depression, Stroke, Headache...) and treatment options (UPPP, Dental appliances, CPAP...). Advised patient to avoid activities that could harm self or others when tired/sleepy, including driving and/or operating heavy machinery. Encouraged weight loss, and continued compliance with other medications. Discussed importance of good sleep hygiene. Follow up 8 weeks or sooner prn. Chicho Carroll MD CHIEF COMPLAINT: follow up HISTORY OF PRESENT ILLNESS: Chloe Guillory is a 72 year old female, BMI 42.48 kg/m2 with a PMH significant for insomnia, restless legs, hypertension, hyperlipidemia, moderate asthma, sleep apnea, type 2 diabetes, hypothyroidism, obesity. Patient presents for follow-up for insomnia, restless legs and sleep apnea. She was started on gabapentin with starting dose of 300 mg to titrate up to 900 mg to take at night. Patient states that she could not take more than 600 mg a day, was experiencing significant side effects including dizziness, vision changes. When asked to further describe her vision changes, she states that she felt as if her brain was disconnected from her eyes, denies any outright blurred vision, double vision, loss of vision. Notes that she follow-up with her eye doctor last week, had new prescription change without any improvement in her symptoms. She did have dilated exam, no abnormalities were seen. Patient denied any other strokelike symptoms associated with this vision change including slurred speech, weakness, numbness, tingling, facial droop, etc. Patient notes that after the first dose of gabapentin her symptoms began, has never had symptoms like this in the past before. She believes this is secondary to her medication and would like to stop this. Patient has used melatonin in the past for sleep, notes that this was not effective. On chart review, it was noted that patient had low ferritin, did not tolerate ferritin supplement in the past, butpatient states that she has not remember this. Patient denies any chest pain, denies any change in her chronic shortness of breath, denies any history of stroke or heart attack, does not smoke, no palpitations. REVIEW OF SYSTEMS GENERAL:No weight loss, malaise or fevers. HEENT:Negative for frequent or significant headaches, No changes in hearing or vision, no nose bleeds or other nasal problems other than noted above NECK:Negative for lumps, goiter, pain and significant neck swelling RESPIRATORY: Negative for cough, wheezing or shortness of breath. CARDIOVASCULAR: Negative for chest pain, leg swelling or palpitations. GASTROINTESTINAL: Negative for abdominal discomfort, blood in stools or black stools or change in bowel habits GENITOURINARY: No history of dysuria, frequency or incontinence MUSCULOSKELETAL: Negative for joint pain or swelling, back pain or muscle pain. NEUROLOGIC:Negative for focal numbness or weakness, headaches and dizziness or syncope, vision changes, speech/languag changes - EXCEPT that as per HPI above. SKIN:Negative for lesions, rash, and itching. PSYCHIATRIC: Negative for sleep disturbance, mood disorder and recent psychosocial stressors. HEMATOLOGIC/LYMPHATIC/IMMUNOLOGIC:Negative for prolonged bleeding, bruising easily or swollen nodes. ENDOCRINE: Negative for cold or heat intolerance, polyuria, polydipsia and goiter. The remainder of the ROS was reviewed and is negative. LAB/IMAGING: Those performed since patient's last visit have been reviewed. CBC: No signs of anemia TSH within normal limits CMP: Shows creatinine at1.14 A1c: 7.2 MEDICATIONS: dilTIAZem HCl 360 mg 24 hr capsule Take 1 capsule by mouth once daily. insulin glargine (LANTUS SOLOSTAR U-100 INSULIN) 100 unit/mL (3 mL) Inject 25 Units subcutaneously every morning. olmesartan (BENICAR) 20 mg tablet Take 1 tablet by mouth once daily. dulaglutide (TRULICITY) 3 mg/0.5 mL pen injector Inject 3 mg subcutaneously one time a week. gabapentin (NEURONTIN) 300 mg capsule Take 1 capsule 30 minutes before bedtime. If no improvement and no side effects, increase to 2 capsules and then even possible 3 capsules. (Patient taking differently: Take 2 capsule 30 minutes before bedtime. If no improvement and no side effects, increase to 3 capsules.) dulaglutide (TRULICITY) 1.5 mg/0.5 mL pen injector Inject 1.5 mg subcutaneously one time a week. Inject once per week. Discard Pen After levothyroxine (LEVOXYL) 50 mcg tablet Take 1 tablet by mouth once daily. Take on empty stomach. ForThyroid fluticasone-salmeterol (WIXELA INHUB) 250-50 mcg/dose inhaler Inhale 1 Puff as instructed twice daily. Rinse and gargle mouth with water after each use. MULTIVITAMIN ORAL Take by mouth once daily. fenofibrate nanocrystallized (TRICOR) 145 mg tablet Take 1 tablet by mouth once daily. albuterol HFA (PROVENTIL HFA, VENTOLIN HFA) 90 mcg/actuation inhaler Inhale 2 Puffs as instructed four times daily as needed for Wheezing/Shortness of Breath. FOR WHEEZING AND SHORTNESS OF BREATH. HISTORIES PAST MEDICAL HISTORY Diagnosis Date Hypertension Hypothyroidism Insomnia 03/19/2016 Moderate persistent asthma without complication 07/11/2015 07/07/15 Methacholine Inhalation Challenge: 35% drop FEV1 at 2.5 mg/mL. Morbid obesity ([facility]) 04/04/2015 Patient has morbid obesity. KAM (obstructive sleep apnea) 09/26/2015 DME: [employer] Other hyperlipidemia 03/23/2019 RLS (restless legs syndrome) 02/15/2019 Stable angina pectoris ([facility]) 06/26/2020 Type 2 diabetes mellitus with stage 3 chronic kidney disease, with long-term current use of insulin([facility]) 04/04/2015 Dx: age 51. On metformin and victoza which she does not think works well for her lately She was started on jardiance which made her have suicidal ideation So she stopped the medication. FAMILY HISTORY Adopted: Yes Family history unknown: Yes SOCIAL HISTORY Social History Tobacco Use Smoking status: Never Smokeless tobacco: Never Tobacco comments: NO smoking in childhood home. Spouse smokes pipe, not around patient. Vaping Use Vaping Use: Never used Substance Use Topics Alcohol use: No Drug use: No PHYSICAL EXAMINATION BP 117/62 Pulse 75 Temp 36.6 C (97.9 F) Resp 18 Wt 102 kg (224 lb 12.8 oz) SpO2 96% BMI42.48 kg/m GENERAL EXAM: General appearance: NAD, pleasant. HEENT: NC/AT, nasal congestion absent, no oral lesions, membranes moist. NECK: No masses, supple. Lungs: Breathing comfortably Extr: Moves all extremities without difficulty Skin: Cool to touch. No rash. NEUROLOGICAL EXAM: General: Awake, alert, oriented x3 (person,place,time), speech fluent, no dysarthria; comprehension, naming, repetition intact. Short and lobsterman memory intact. CN: PERRL, EOMI and without nystagmus, VFF to confrontation, facial sensation and strength are normal and symmetric, hearing is intact to finger rub bilaterally, palate and tongue movements are intact and symmetric. SCM and trapezius strength normal. Motor: Normal tone, bulk and strength (5/5) bilaterally (throughout extremities x4). Reflexes: 2/4 and symmetric, plantar stimulation is flexor. Coordination: FNF intact. No tremors. Sensation: LT No evidence of neglect. Gait: Narrow based and stable with normal stride and arm swing. Romberg normal. Assessment and Plan: ASSESSMENT/PLAN: 1. RLS (restless legs syndrome) - ICD9: 333.94, ICD10: G25.81 (primary diagnosis) 2. Insomnia, unspecified type - ICD9: 780.52, ICD10: G47.00 3. KAM (obstructive sleep apnea) - ICD9: 327.23, ICD10: G47.33 Patient started on gabapentin at last visit, did not tolerate this well with multiple side effects.Side effects included vision changes as well as dizziness, no other signs of stroke, did follow-up with eye doctor without any abnormalities on dilated exam. Patient states this is secondary to the me dication, does not believe she had a stroke, states that as soon as she took the medication she began to feel symptomatic. Patient with like to stop this medication, will trial Lyrica 50 mg to take at night, instructed patient to take this 1 to 2 hours before bed. Additionally, discussed other conservative measures that may improve her restless legs including exercise, massage, compression. Patient does not tolerate ferritin supplements on chart review, discussed different ways she can obtain this in her diet. Patient instructed to stop taking the gabapentin tonight, instructed to reach out should she not have any improvement in her dizziness or vision changes within 3 days. Should she have persistent symptoms, will consider MRI of the brain without contrast to further evaluate for any stroke. Patient denies any other strokelike symptoms, patient with risk of stroke secondary to diabetes, high cholesterol, hypertension. No stroke in the past, no heart attack in the past. Patient did not have any deficits on exam. Patient otherwise doing well, no other changes. Patient instructed to reach out should she experience any side effects with this new medication. Patient to follow-up in 3 months or sooner should any symptoms change or worsen, patient agrees and understands and all questions were answered. Saba Gillespie PA-C I spent a total of 20 minutes on the date of the service which included preparing to see the patient, [id number] patient care, completing clinical documentation, obtaining and/or reviewing separately obtained history, performing a medically appropriate examination, counseling and educating the pat ient/family/caregiver, and ordering medications, tests, or procedures. This document has been created with the use of voice recognition technology. It may contain inaccuracies: (e.g. misspellings, inaccurate syntax or word sense) that have escaped review. documented in this encounterBar[facility]03-23-[facility]23 History of Present illness Narrative* Ann Francois PA-C - 11/21/2022 11:20 AM EDT 72 year old female with c/o here for follow up Nipple discharge in female (primary encounter diagnosis) Benign breast cyst in female, left Discharge resolve.d Has outstanding order okays for left diagnostic mammogram and ultrasound. Stable angina pectoris (hcc) Primary hypertension Other hyperlipidemia Cardiovascular interval hx: 07/14/2020 cardiac cath diagnostic: normal coronaries Coronary Anatomy: Right Dominant LMT: _ The LMT is normal. LAD: _ The LAD is normal. LCX: _ The Circumflex is normal. RAMUS: _ Ramus Status: Not Applicable. RCA: _ RCA is normal. 07/10/2020 echo: LV size and LV SF WNL, EF 64%. No abnormal wall motion. RV size and RV SF WNL, RV SP estimated complicated by insufficient TR signal, PAP 3 mmHg, IVC not seen LA and RA normal size No apparent valvular disease Normal aorta. 06/26/[address] Olsen: RUIZ with stairs, chest pain in the evening, aching without radiation Current meds: Diltiazem HCl 360 mg 24-hour 1 capsule daily Fenofibrate 145 mg daily Use of NTG: No Chest pain, arm, jaw pain, neck, or upper back pain suggestive of angina: No. SOB: always SOB Dyspnea with exertion: No orthopnea: No Cough : No racing or irregular heartbeats: No palpitations: No syncopal sx: No Headache: No Unexplainable fatigue No Leg swelling: No Nausea: No diaphoresis: always sweating, nothing out of the ordinary Heartburn: No Claudication: No Smoking: No Following Low cholesterol, high fiber diet? Cutting back If on statin: muscle aches? Noted increased cramsp in right biceps and occasional in legs If on statin: GI sx or diarrhea? Not since off metformin Additional history none. Component Latest Ref Rng & Units 09/04/2021 03/11/2022 11/18/2022 WBC 3.70 - 11.00 k/uL 7.23 8.75 RBC 3.90 - 5.20 m/uL 4.00 4.26 Hemoglobin 11.5 - 15.5 g/dL 11.2 (L) 12.2 Hematocrit 36.0 - 46.0 % 35.9 (L) 38.1 MCV 80.0 - 100.0 fL 89.8 89.4 MCH 26.0 - 34.0 pg 28.0 28.6 MCHC 30.5 - 36.0 g/dL 31.2 32.0 RDW-CV 11.5 - 15.0 % 13.4 13.2 Platelet Count 150 - 400 k/uL 344 430 (H) MPV 9.0 - 12.7 fL 10.0 9.7 Neut% % 55.0 46.0 Abs Neut (ANC) 1.45 - 7.50 k/uL 3.98 4.03 Lymph% % 32.2 41.5 Abs Lymph 1.00 - 4.00 k/uL 2.33 3.63 Pettis% % 7.2 7.2 Abs Pettis <0.87 k/uL 0.52 0.63 Eosin% % 5.0 4.1 Abs Eosin <0.46 k/uL 0.36 0.36 Baso% % 0.6 0.7 Abs Baso <0.11 k/uL 0.04 0.06 Immature Gran % % 0.5 IMMATURE GRANS (ABS) <0.10 k/uL 0.04 NRBC /100 WBC 0.0 Absolute nRBC <0.01 k/uL <0.01 <0.01 DTYPE Auto Nucleated Reds 0 /100 WBC 0.0 Diff Type Auto Diff Protein, Total 6.3 - 8.0 g/dL 6.4 6.9 Albumin 3.9 - 4.9 g/dL 4.2 4.1 Calcium 8.5 - 10.2 mg/dL 9.4 9.9 Bilirubin, Total 0.2 - 1.3 mg/dL 0.2 0.3 Alkaline Phosphatase 34 - 123 U/L 52 67 AST 13 - 35 U/L 19 25 Glucose 74 - 99 mg/dL 98 115 (H) BUN 7 - 21 mg/dL 20 24 (H) Creatinine 0.58 - 0.96 mg/dL 1.04 (H) 1.14 (H) Sodium 136 - 144 mmol/L 140 138 Potassium 3.7 - 5.1 mmol/L 4.1 4.5 Chloride 97 - 105 mmol/L 102 103 CO2 22 - 30 mmol/L 28 23 Anion Gap 9 - 18 mmol/L 10 12 ALT 7 - 38 U/L 20 25 eGFR- >60 eGFR-All Other Races . 52 eGFR >=60 mL/min/1.73m 52 (L) Component Latest Ref Rng & Units 09/04/2021 03/11/2022 11/18/2022 Cholesterol, Total <200 mg/dL 181 180 224 (H) Triglyceride <150 mg/dL 90 83 108 HDL Cholesterol >39 mg/dL 51 59 63 LDL Cholesterol <100 mg/dL 112 (H) 104 (H) 139 (H) Non HDL Cholesterol <130 mg/dL 130 (H) 121 161 (H) Fasting Time hrs 12 12 14 VLDL Cholesterol <30 mg/dL 18 17 22 TC:HDL Ratio <5.10 3.55 3.05 3.56 LDL:HDL Ratio <2.54 2.20 1.76 2.21 Kam (obstructive sleep apnea) cpap intolerant Moderate persistent asthma without complication Link Trainer Teacher: none. Interval history: stable. Current medications: Wixela Inhub fluticasone-salmeterol 250-50 mcg per dose 1 puff twice daily: Albuterol MDI 90 mcg per actuation 2 puffs every 4 hours Worsening shortness of breath: No. Cough: No. Wheezing: No. Smoking: No. Compliant with medications: Yes. Using rescue inhaler: none. Type 2 diabetes mellitus with stage 3a chronic kidney disease, with long-term current use of insulin (formerly [facility]) Current medications: Dulaglutide 1.5 mg subcu weekly Lantus insulin 28 units subcu a.m. Taking medication as directed consistently? Yes Medication side effects: Medical Issues / Complications: hypertension, hyperlipidemia, and cardiovascular disease Checking blood sugars at home? Yes. 11/12-11/17/2022 fasting a.m. [phone]; 2h after eating evening meal [phone] Watching diet? Somewhat, trying to avoid redmeat, eating more veggies. Physical Activity: Regular Hypoglycemic spells? No Any visual disturbance? No Chest pain? No New numbness, tingling or loss of sensation? Chronic tingling Any recent foot problems, sores or rashes? Neuropathy worse in feet since sugars went up. Any recent or sudden weight loss? No Change in urination? No. If yes: Any recent illness? No Last eye exam: 11/18/22 no retinopathy. Last foot exam: up to date. HBA1C: Hemoglobin A1C (%) Date Value 11/18/2022 7.2 03/11/2022 6.8 09/04/2021 6.3 03/15/2021 6.7 ) CMP: Glucose 115 11/18/2022 BUN 24 11/18/2022 Creatinine 1.14 11/18/2022 Sodium 138 11/18/2022 Potassium 4.5 11/18/2022 Chloride 103 11/18/2022 CO2 23 11/18/2022 Protein, Total 6.9 11/18/2022 Albumin 4.1 11/18/2022 Calcium 9.9 11/18/2022 Alkaline Phosphatase 67 11/18/2022 Bilirubin, Total 0.3 11/18/2022 AST 25 11/18/2022 ALT 25 11/18/2022 Last 2 Encounter Wt Readings: Date: Wt: 10/18/2022 100.2 kg (220 lb 12.8 oz) 09/11/2022 102.1 kg (225 lb) Hypothyroidism, unspecified type Current medication: Levothyroxine 50 mcg daily AC 1 hour Taking as directed on an empty stomach? Yes. Thyroid pain: No. Mass effect: Yes. Change ins energy level/ fatigue? No. Sleep disturbance ? no. Temperature Intolerance: cold No, hot No. In females, menstrual cycle issues? none, If yes: Change in bowel habits? No. If yes: Constipation? occasional. If yes: Diarrhea? No. If yes: Weight changes?No. Memory issues: No. Diaphoresis: No. Numbness, tingling none Change in hair or skin? Falling out . If yes: Other symptoms: Last 2 Encounter Wt Readings: Date: Wt: 10/18/2022 100.2 kg (220 lb 12.8 oz) 09/11/2022 102.1 kg (225 lb) Last thyroid labs: TSH Date Value 11/18/2022 3.990 mIU/L 09/04/2021 3.880 uU/mL 07/28/2020 3.460 uU/mL ) Rls (restless legs syndrome) Current medications: Gabapentin 300 mg at bedtime up to 900 mg as needed 10/18/[address] Chicho Carroll neurology: Notes indicate she did not tolerate PAP therapy. Continues complaints of tossing and turning through the night, RLS as well as elevated PLMI and PLM AI during prior sleep study. Started gabapentin 300 mg nightly and titrate up to 900 as needed. Has had low ferritin in the past but cannot tolerate iron. Recommended new sleep study. Low vitamin d level Component Latest Ref Rng & Units 11/18/2022 Vitamin D 25 Hydroxy 31.0 - 80.0 ng/mL 42.7 HISTORIES FAMILY HISTORY Adopted: Yes Family history unknown: Yes PAST MEDICAL HISTORY Diagnosis Date Hypertension Hypothyroidism Insomnia 03/19/2016 Moderate persistent asthma without complication 07/11/2015 07/07/15 Methacholine Inhalation Challenge: 35% drop FEV1 at 2.5 mg/mL. Morbid obesity (HCC) 04/04/2015 Patient has morbid obesity. KAM (obstructive sleep apnea) 09/26/2015 DME: [facility] Other hyperlipidemia 03/23/2019 RLS (restless legs syndrome) 02/15/2019 Stable angina pectoris (HCC) 06/26/2020 Type 2 diabetes mellitus with stage 3 chronic kidney disease, with long-term current use of insulin(HCC) 04/04/2015 Dx: age 51. On metformin and [...] pipe, not around patient. Vaping Use Vaping Use: Never used Substance Use Topics Alcohol use: No Drug use: No ACTIVE PROBLEM LIST Type 2 Diabetes Mellitus With Stage 3a Chronic Kidney Disease, With Long-Term Current Use of Insulin ([facility]) Hypertension Hypothyroidism Moderate Persistent Asthma Without Complication KAM (obstructive sleep apnea) CPAP intolerant Insomnia Rls (Restless Legs Syndrome) Class 3 Severe Obesity With Body Mass Index (Bmi) of 40.0 to 44.9 in Adult ([facility]) Edema Other Hyperlipidemia Stable Angina Pectoris ([facility]) Multiple Gallstones Chronic Pain of Both Shoulders Current Outpatient Medications Medication Sig Dispense Refill gabapentin (NEURONTIN) 300 mg capsule Take 1 capsule 30 minutes before bedtime. If no improvement and no side effects, increase to 2 capsules and then even possible 3 capsules. 90 capsule 2 dulaglutide (TRULICITY) 1.5 mg/0.5 mL pen injector Inject 1.5 mg subcutaneously one time a week. Inject once per week. Discard Pen After 4 Each 2 Doxepin 3 mg tab Take 1 tablet by mouth once daily. 30 tablet 2 metFORMIN (GLUCOPHAGE) 500 mg tablet Take 2 tablets by mouth twice daily with meals. (Patient not taking: Reported on 10/18/2022) 360 tablet 1 levothyroxine (LEVOXYL) 50 mcg tablet Take 1 tablet by mouth once daily. Take on empty stomach. ForThyroid 90 tablet 3 dilTIAZem HCl 360 mg 24 hr capsule Take 1 capsule by mouth once daily. 90 capsule 3 fluticasone-salmeterol (WIXELA INHUB) 250-50 mcg/dose inhaler Inhale 1 Puff as instructed twice daily. Rinse and gargle mouth with water after each use. 3 Each 3 MULTIVITAMIN ORAL Take by mouth once daily. fenofibrate nanocrystallized (TRICOR) 145 mg tablet Take 1 tablet by mouth once daily. 90 tablet 3 olmesartan (BENICAR) 20 mg tablet Take 1 tablet by mouth once daily. 90 tablet 3 insulin glargine (LANTUS SOLOSTAR U-100 INSULIN) 100 unit/mL (3 mL) Inject 30 Units subcutaneously every morning. 5 Pen 5 albuterol HFA (PROVENTIL HFA, VENTOLIN HFA) 90 mcg/actuation inhaler Inhale 2 Puffs as instructed four times daily as needed for Wheezing/Shortness of Breath. FOR WHEEZING AND SHORTNESS OF BREATH. 54g 3 No current facility-administered medications for this visit. BP CONTROLLED (<130/80) Never done DEPRESSION ASSESSMENT Never done EXAM: BP 128/70 Pulse 74 Wt 101.6 kg (224 lb) SpO2 95% BMI 42.32 kg/m Pleasant obese adult woman in no acute distress. Alert and oriented all spheres. Normal affect and cognition. Speech normal. No deficits to learning or comprehension. Skin warm, dry, pink to lips and nailbeds. Normal turgor. Respirations regular and unlabored. HEENT: NCAT. No scleral icterus or conjunctival injection. TM's clear. Nose and oropharynx free from injection or lesion. Oral membranes moist and pink. No cervical lymph nodes. Hoarse. Thyroid non-tender, no masses, or enlargement. Carotids pulses 2+/4+ without bruits. No JVD with HOB at 30 degrees. Chest is normal shape. Lungs are clear to all barnett with good air exchange through out. HRRR without murmur or gallop. No lifts, heaves, or rubs. Extrem: no clubbing or cyanosis. Edema: none. Extremities are warm and pink with prompt capillary refill. ASSESSMENT/PLAN: 1. Nipple discharge in female - ICD9: 611.79, ICD10: N64.52 (primary diagnosis) resolved 2. Benign breast cyst in female, left - ICD9: 610.0, ICD10: N60.02 Has outstanding diagnostic tests 3. Stable angina pectoris (HCC) - ICD9: 413.9, ICD10: I20.8 No active sx 4. Primary hypertension - ICD9: 401.9, ICD10: I10 - good control - Continue current medication(s) - Recommended regular aerobic exercise. - Recommend home blood pressure monitoring, to bring results in on next visit - Goal of BP <130/80 - OLMESARTAN 20 MG TABLET 5. Other hyperlipidemia - ICD9: 272.4, ICD10: E78.49 Fair control 6. KAM (obstructive sleep apnea) CPAP intolerant - ICD9: 327.23, ICD10: G47.[address] Carroll 7. Moderate persistent asthma without complication - ICD9: 493.90, ICD10: J45.40 - Continue current meds - Avoidance of triggers recommended 8. Type 2 diabetes mellitus with stage 3a chronic kidney disease, with long-term current use of insulin (HCC) - ICD9: 250.40, 585.3, V58.67, ICD10: E11.22, N18.31, Z79.4 - Controlled - Continue current medications - eGFR: Stable - Counseled on avoiding regular use of NSAIDs, adequate hydration, potential risk of IV dye 9. Hypothyroidism, unspecified type - ICD9: 244.9, ICD10: E03.9 - Instructed patient on importance of taking on an empty stomach either first thing in the morning or at bedtime. - continue current dose of Synthroid Stable - Behavioral intervention 10. RLS (restless legs syndrome) - ICD9: 333.94, ICD10: G25.81 Cut gabapentin to 600mg herself, does feel well on medication. See Dr. Carroll in a few weeks. 11. Low vitamin D level - ICD9: 790.6, ICD10: R79.89 Maintain supplement 12. Essential hypertension - ICD9: 401.9, ICD10: I10 - good control - Continue current medication(s) - Recommended regular aerobic exercise. - Recommend home blood pressure monitoring, to bring results in on next visit - Goal of BP <130/80 - DILTIAZEM CD 360 MG CAPSULE,EXTENDED RELEASE 24 HR 13. Type 2 diabetes mellitus with stage 3 chronic kidney disease, with long-term current use of insulin (HCC) - ICD9: 250.40, 585.3, V58.67, ICD10: E11.22, N18.30, Z79.4 - Controlled - Continue current medications As above - INSULIN GLARGINE (U-100) 100 UNIT/ML (3 ML) SUBCUTANEOUS PEN Ann Francois PA-C documented in this encounterRobert Ville [id number] Miscellaneous Notes* Telephone Encounter - Aleksandra Birce LPN - 11/07/2022 2:57 PM EST Patient returned call and went over notes below from Angel LOVELACE with understanding. Patient said her fasting blood sugars are good, it is the 2 hours after a meal sugars go from 190 to 300. Patient said she plans to do lab work next week. * Telephone Encounter - Bel Chowdhury Ma - 11/07/2022 2:52 PM EST Left message for patient to return call. Bel Chowdhury Ma * Telephone Encounter - Ann Francois PA-C - 11/07/2022 1:18 PM EST I don't recall seeing the blood sugars or wasn't concerned if I did, I don't remember- sorry. Does she recall the range? If under 250 I probably wouldn't have acted. She has labwork due 11/21/2022- will make decision after that is back. Thanks, Angel Francois PA-C * Telephone Encounter - Aleksandra Brice LPN - 11/06/2022 3:38 PM EST Patient calling she left a list of blood sugar readings at the office on 10/18/2022, left at desk onsecond floor to be given to Angel's nurse. Patient said her blood sugar has been going higher and thought Angel would increase her Trulicity dose? Patient said she will not be home tomorrow but will behome on Friday. Please advise documented in this encounterBar[facility]02-17-[facility]23 Instructions* Patient Instructions* Chicho Carroll Jr., MD - 10/18/2022 3:00 PM EST Your most recent body mass index (BMI) that we have on record is 41.72 kg/m2. Obstructive sleep apnea (KAM) worsens with an increase in weight; reduction in weight may improve or resolve your KAM. Ifyou are not already seeking treatment, there are resources available at the [facility] such as a nutrition consultation or referral to weight management programs at our [facility] [place]. Please let us know if we can assist with a referral. documented in this encounterBar[facility]02[facility]17-[facility]23 History of Present illness Narrative* Chicho Carroll Jr., MD - 10/18/2022 2:34 PM EST NEW PATIENT (CONSULT) HISTORY AND PHYSICAL EXAM PRIMARY CARE PHYSICIAN: Ann Francois PA-C REASON FOR CONSULT: KAM REFERRING PHYSICIAN: Scar Ceballos MD CHIEF COMPLAINT: Cant stay asleep Consultation requested by Scar Ceballos MD for an opinion regarding chief complaint of Patient presents with: Obstructive sleep apnea : Hasn't used CPAP in several years and my final recommendations will be communicated back to the requesting physician by way of sharedmedical record or letter via US mail. HISTORY OF PRESENT ILLNESS: Chloe Guillory is a 72 year old female, BMI 41.72 kg/m2 with a PMH significant for KAM diagnosed in 2015 by PSG showing AHI of 18.2 with supine index of 27.4. Study was associated with hypercapnia as well. PAP titration was completed and recommended CPAP 11 cmH2O. Note that study was by AASM guidelines and current insurance would be [employer]. Patient states CPAP was worthless because she tosses and turns all the time and would take the CPAP off in the middle of the nightand eventually was told by her to get rid of it. States she is a stomach sleeper and just rolls and rolls. States she tried a bunch of PAP masks and nothing worked. Currently describes sleep as terrible and tosses and turns all night wide awake. Taking Trazodone to try and help her sleep and states her PCP wanted to put her on Doxepin. Before falling asleep has pain in the shoulders. Doeshave some creepy crawlies in her legs at night. On Trazodone for years. During her baseline PSG hadPLMI of 10.4 with PLMAI of 9.5. Going to bed at midnight and wakes for good at 5AM due to discomfort and tossing and turning. Before 5AM patient wakes about 2 hours to use the bathroom. No parasomnias. Patient previously saw sleep dept who reported use of Ambien to help pt acclimate to PAP, but resulted in nightmares although on some nights made sleep quite good. Notes from 2016 suggest sleep dept had pt alternating ambien and lunesta night to night. REVIEW OF SYSTEMS GENERAL:No weight loss, malaise or fevers. HEENT:Negative for frequent or significant headaches, No changes in hearing or vision, no nose bleeds or other nasal problems NECK:Negative for lumps, goiter, pain and significant neck swelling RESPIRATORY: Negative for cough. + Wheeze. + RUIZ CARDIOVASCULAR: Negative for chest pain, or palpitations. GASTROINTESTINAL: Negative for abdominal discomfort, blood in stools or black stools or change in bowel habits GENITOURINARY: No history of dysuria, frequency or incontinence MUSCULOSKELETAL: See HPI. NEUROLOGIC:Negative for focal numbness or weakness, headaches and dizziness or syncope, vision changes, speech/language changes, changes in gait or falls -- besides those complaints as above in HPI. SKIN:Negative for lesions, rash, and itching. HEMATOLOGIC/LYMPHATIC/IMMUNOLOGIC:Negative for prolonged bleeding, bruising easily or swollen nodes. ENDOCRINE: Negative for cold or heat intolerance, polyuria, polydipsia and goiter. The remainder of the ROS was reviewed and is negative. LAB/IMAGING: Reviewed and include: WBC (k/uL) Date Value 09/04/2021 7.23 RBC (m/uL) Date Value 09/04/2021 4.00 Hemoglobin (g/dL) Date Value 09/04/2021 11.2 (L) Hematocrit (%) Date Value 09/04/2021 35.9 (L) MCV (fL) Date Value 09/04/2021 89.8 MCH (pG) Date Value 09/04/2021 28.0 MCHC (g/dL) Date Value 09/04/2021 31.2 RDW-CV (%) Date Value 09/04/2021 13.4 Platelet Count (k/uL) Date Value 09/04/2021 344 MPV (fL) Date Value 09/04/2021 10.0 Glucose (mg/dL) Date Value 03/11/2022 67 (L) BUN (mg/dL) Date Value 03/11/2022 19 Creatinine (mg/dL) Date Value 03/11/2022 0.94 Sodium (mmol/L) Date Value 03/11/2022 140 Potassium (mmol/L) Date Value 03/11/2022 4.2 Chloride (mmol/L) Date Value 03/11/2022 104 CO2 (mmol/L) Date Value 03/11/2022 24 Protein, Total (g/dL) Date Value 09/04/2021 6.4 Albumin (g/dL) Date Value 09/04/2021 4.2 Calcium, Total (mg/dL) Date Value 03/11/2022 9.8 Alkaline Phosphatase (U/L) Date Value 09/04/2021 52 Bilirubin, Total (mg/dL) Date Value 09/04/2021 0.2 AST (U/L) Date Value 09/04/2021 19 ALT (U/L) Date Value 09/04/2021 20 Hep C Antibody IA (no units) Date Value 08/19/2015 Negative MEDICATIONS: dulaglutide (TRULICITY) 1.5 mg/0.5 mL pen injector Inject 1.5 mg subcutaneously one time a week. Inject once per week. Discard Pen After Doxepin 3 mg tab Take 1 tablet by mouth once daily. levothyroxine (LEVOXYL) 50 mcg tablet Take 1 tablet by mouth once daily. Take on empty stomach. ForThyroid dilTIAZem HCl 360 mg 24 hr capsule Take 1 capsule by mouth once daily. fluticasone-salmeterol (WIXELA INHUB) 250-50 mcg/dose inhaler Inhale 1 Puff as instructed twice daily. Rinse and gargle mouth with water after each use. MULTIVITAMIN ORAL Take by mouth once daily. fenofibrate nanocrystallized (TRICOR) 145 mg tablet Take 1 tablet by mouth once daily. olmesartan (BENICAR) 20 mg tablet Take 1 tablet by mouth once daily. insulin glargine (LANTUS SOLOSTAR U-100 INSULIN) 100 unit/mL (3 mL) Inject 30 Units subcutaneously every morning. albuterol HFA (PROVENTIL HFA, VENTOLIN HFA) 90 mcg/actuation inhaler Inhale 2 Puffs as instructed four times daily as needed for Wheezing/Shortness of Breath. FOR WHEEZING AND SHORTNESS OF BREATH. metFORMIN (GLUCOPHAGE) 500 mg tablet Take 2 tablets by mouth twice daily with meals. (Patient not taking: Reported on 10/18/2022) HISTORIES PAST MEDICAL HISTORY Diagnosis Date Hypertension Hypothyroidism Insomnia 03/19/2016 Moderate persistent asthma without complication 07/11/2015 07/07/15 Methacholine Inhalation Challenge: 35% drop FEV1 at 2.5 mg/mL. Morbid obesity ([facility]) 04/04/2015 Patient has morbid obesity. KAM (obstructive sleep apnea) 09/26/2015 DME: [facility] Other hyperlipidemia 03/23/2019 RLS (restless legs syndrome) 02/15/2019 Stable angina pectoris ([facility]) 06/26/2020 Type 2 diabetes mellitus with stage 3 chronic kidney disease, with long-term current use of insulin([facility]) 04/04/2015 Dx: age 51. On metformin and victoza which she does not think works well for her lately She was started on jardiance which made her have suicidal ideation So she stopped the medication. FAMILY HISTORY Adopted: Yes Family history unknown: Yes SOCIAL HISTORY Social History Tobacco Use Smoking status: Never Smokeless tobacco: Never Tobacco comments: NO smoking in childhood home. Spouse smokes pipe, not around patient. Vaping Use Vaping Use: Never used Substance Use Topics Alcohol use: No Drug use: No PHYSICAL EXAMINATION BP 122/82 Pulse 110 Resp 18 Wt 100.2 kg (220 lb 12.8 oz) SpO2 98% BMI 41.72 kg/m GENERAL EXAM: General appearance: NAD, pleasant. HEENT: NC/AT, nasal congestion absent, no oral lesions, membranes moist. Lungs: Mild diffuse wheezing. CV: RRR nl S1, S2 Extr: No cyanosis, clubbing or edema. Skin: Cool to touch. NEUROLOGICAL EXAM: General: Awake, alert, oriented x3 (person,place,time), speech fluent, no dysarthria; comprehension, naming, repetition intact. CN: PERRL, EOMI and without nystagmus, VFF to confrontation, facial sensation and strength are normal and symmetric, hearing is intact to finger rub bilaterally, palate and tongue movements are intact and symmetric. SCM and trapezius strength normal. Motor: Normal tone, bulk and strength (5/5) bilaterally (throughout extremities x4). Coordination: FNF, JANIYA, HTS intact. No tremors. Sensation: LT intact throughout. No evidence of neglect. Gait: Stable with normal stride and arm swing. Assessment and Plan: ASSESSMENT/PLAN: 1. Insomnia, unspecified type - ICD9: 780.52, ICD10: G47.00 (primary diagnosis) 2. RLS (restless legs syndrome) - ICD9: 333.94, ICD10: G25.81 3. KAM (obstructive sleep apnea) - ICD9: 327.23, ICD10: G47.33 Patient with known KAM for which she has not previously tolerated PAP (reviewed prior sleep recordsfrom >5 years ago). Primary complaint is tossing and turning through the night. Etiology of which is uncertain but suspect patient with RLS given subjective history as well as elevated PLMI and PLMAI during prior sleep study. Never treated directly for tossing and turning but some response to amb ien and lunesta in the past. At this time will attempt to treat as RLS. Will place on trial of gabapentin 300mg QHS and titrate up to 900mg QHS as need and tolerated. SE and ADRs d/w pt. Note Ferritin low in the past but pt states cannot tolerate Fe. Finally, patient with known history of KAM, and will need treatment. At present pt not wanting PAP but feel it would be the best means of treating her condition. Will first attempt to control tossing and turning through the night. At time of followup if those symptoms have improved, then will again approach KAM. Pt will need new sleep study (split if AHI >5) given prior study completed by AASM and not CMS guidelines. Discussed with patient:the physiology of OSAS, medical conditions associated with OSAS (DM, HTN, CAD, Depression, Stroke, Headache...) and treatment options (UPPP, Dental appliances, CPAP...). Advised patient to avoid activities that could harm self or others when tired/sleepy, including driving and/or operating heavy machinery. Encouraged weight loss, and continued compliance with other medications. Discussed importance of good sleep hygiene. Follow up 8 weeks or sooner prn. Chicho Carroll MD I spent a total of 45+ minutes on the date of the service which included preparing to see the patient, [id number] patient care, completing clinical documentation, obtaining and/or reviewing separately obtained history, performing a medically appropriate examination, counseling and educating the pa tient/family/caregiver, ordering medications, tests, or procedures, and communicating results to the patient/family/caregiver. PDMP website checked and validated. All prescriptions have been APPROPRIATELY filled. No suspiciousactivity was identified. 10/18/2022 by Chicho Carroll MD documented in this encounterBar[facility]02-01-2023 Miscellaneous Notes* Telephone Encounter - Shahriar English RN - 10/02/2022 1:16 PM EST Patient called back. Given message. Appt scheduled * Telephone Encounter - Meliza Almanza RN - 10/01/2022 1:40 PM EST Left message for patient to call office. Meliza Almanza RN * Telephone Encounter - Meliza Almanza RN - 10/01/2022 1:40 PM EST ----- Message from Hyun Archer APRN.CNP sent at 10/01/2022 1:12 PM EST ----- There is no mammographic or sonographic evidence of malignancy. 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 There is no abnormality seen in the left breast to correspond with the discharge from the nipple inthe sub-areolar depth. Follow up left diagnostic mammogram and left breast ultrasound are recommended in three months for probably benign findings reported on the 07/02/22 mammogram and ultrasound. Orders have already been placed. Hyun Archer APRN.CNP documented in this encounterBarberton [facility] Hospital01-31-2023 Miscellaneous Notes* Telephone Encounter - Ann Francois PA-C - 10/01/2022 5:39 PM EST Patient concerned about high blood sugars. Discussed lower blood sugars are more of a concern. Stop glimeperide. Increase trulicity to 1.5mg sc weekly Twice a day blood sugars fasting , 2h PC. If less than 80, higher than 300, asked to call office. Keep glucose tabs or hard candy in pocket for low blood sugar if needed. Plan to lower insulin next. The following approved medication requests have been transmitted electronically. Requested Prescriptions Signed Prescriptions Disp Refills dulaglutide (TRULICITY) 1.5 mg/0.5 mL pen injector 4 Each 2 Sig: Inject 1.5 mg subcutaneously one time a week. Inject once per week. Discard Pen After Authorizing Provider: Ann FRANCOIS PA-C * Telephone Encounter - Bel Chowdhury Ma - 10/01/2022 12:29 PM EST Patient dropped a list of blood sugars off to the office. She started Trulicity on 09/21/22. 09/28/22 9:00 am: 76 6:30 pm: 225 09/29/22 9:00 am: 91 6:30 pm: 302 09/30/22 9:00 am: 84 6:30 pm: 226 10/01/22 3:30 am: 84 9:00 am: 87 documented in this encounterBarberton [facility] Hospital01-31-2023 History of Present illness Narrative* Marcia Richmond RDMS - 10/01/2022 1:00 PM EST Radiology Service Progress Note PATIENT NAME: Chloe Guillory DATE OF SERVICE: October 01, 2022 TIME: 2:54 PM PATIENT IDENTITY VERIFICATION COMPLETED USING TWO (2) IDENTIFIERS: Name and Date of confirmedby patient verbally. FALL SCREENING: Has the patient had 2 falls in the last year or 1 fall with injury or currently using an Ambulatory Assistive Device (Walker, Cane, Wheelchair, Crutches, etc.)? No PATIENT GENDER DATA: Female. status: : No status: NO. PATIENT RELEVANT IMPLANT DATA REVIEWED: Not Applicable RADIOLOGY DEPARTMENT: Ultrasound PERIPHERAL IV DATA: Not applicable SIGNED BY: Marcia Richmond RDMS [facility] October 01, 2022 2:54 PM documented in this encounterBarberton [facility] Hospital01-31-2023 History of Present illness Narrative* Debora Bliss Mammo Daniela - 10/01/2022 11:30 AM EST Radiology Service Progress Note PATIENT NAME: Chloe Guillory DATE OF SERVICE: October 01, 2022 TIME: 11:10 AM PATIENT IDENTITY VERIFICATION COMPLETED USING TWO (2) IDENTIFIERS: Name and Date of confirmedby patient verbally. FALL SCREENING: Has the patient had 2 falls in the last year or 1 fall with injury or currently using an Ambulatory Assistive Device (Walker, Cane, Wheelchair, Crutches, etc.)? No PATIENT GENDER DATA: Female. status: : No status: NO. PATIENT RELEVANT IMPLANT DATA REVIEWED: Not Applicable RADIOLOGY DEPARTMENT: Mammography PERIPHERAL IV DATA: Not applicable SIGNED BY: Juli Chuao Daniela October 01, 2022 11:10 AM documented in this encounterBarberton Citizens Hospital01-11-2023 Miscellaneous Notes* Telephone Encounter - Aleksandra Brice LPN - 09/11/2022 3:33 PM EST Patient returned call and went over results, notes from Angel LOVELACE with understanding. * Telephone Encounter - Clinton Burgos LPN - 09/11/2022 2:59 PM EST Left message to return call to office. Clinton Burgos LPN * Telephone Encounter - Clinton Burgos LPN - 09/11/2022 2:58 PM EST ----- Message from Ann Francois PA-C sent at 09/11/2022 11:53 AM EST ----- Please let her know culture showed no organisms. 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 who presents with sensitivity to left breast for several days and nipple discharge. Noticed a hard pencil shaped tube behind nipple 4 days ago which drained 3 nights ago.while she was sleeping. Had a ring (approximately 10 cm) of drainage on her nightgown and some onsheets. Drainage was clear with maybe a little yellow. No odor. No blood in any drainage. Never hadany skin redness. Less sensitivity and pressure after draining. Was still able to express fluid yesterday at PCP, culture was sent. Her history includes: 07/02/2022 - DX mammogram and US left breast - There is 0.6 cm x 0.5 cm x 0.3 cm oval cyst in the left breast at 3 o'clock middle depth 4 cm from the nipple. . . There also is 0.8 cm x 0.6 cm x 0.6 cm lobulated cyst in the left breast at 2 o'clock middle depth 7 cm from the nipple. Recommended 6 month follow-up imaging OBJECTIVE: NECK: normal thyroid Chest: normal inspiratory effort BREASTS: Symmetrical to inspection., No dimpling or skin changes., Normal consistency, no palpable masses in right breast., No axillary lymphadenopathy. Positive findings - approximately 1 cm x 0.25 cm firm linear mass palpated directly behind and anterior to nipple. Only able to be palpated in sitting position. No fluid able to be expressed today. ASSESSMENT/PLAN: 1. Galactorrhea of left breast - ICD9: 611.6, ICD10: N64.3 (primary diagnosis) - Cultured by PCP 09/10/2022. No fluid able to be expressed today. - [facility] - US BREAST LTD LT 2. Subareolar mass of left breast - ICD9: 611.72, ICD10: N63.42 - approximately 1 cm x 0.25 cm firm linear mass palpated directly behind and anterior to nipple. - [facility] - US BREAST LTD LT Will notify of results. Follow- up as needed. Hyun Archer APRN.DEANDRE Medical Decision Making: Problems: Moderate: New problem with uncertain prognosis Data: Unique test(s) ordered: 2 Medical Decision Making Level: 3 - Low documented in this encounterBarberton [facility] Hospital01-10-2023 History of Present illness Narrative* Ann Francois PA-C - 09/10/2022 1:59 PM EST 72 year old female with c/o left breast firm area around nipple, bothered to bump but not really painful. Notes tubular area painful, woke this morning with fluid stain on pajamas and area feels better. Unable to get dulaglutide- $400 Continues same medications as previous with controlled [id number] Can't sleep off trazedone but RLS is improving. Sleeps an hour or two and wakes repeatedly. HISTORIES FAMILY HISTORY Adopted: Yes Family history unknown: Yes PAST MEDICAL HISTORY Diagnosis Date Hypertension Hypothyroidism Insomnia 03/19/2016 Moderate persistent asthma without complication 07/11/2015 07/07/15 Methacholine Inhalation Challenge: 35% drop FEV1 at 2.5 mg/mL. Morbid obesity (HCC) 04/04/2015 Patient has morbid obesity. KAM (obstructive sleep apnea) 09/26/2015 DME: [facility] Other hyperlipidemia 03/23/2019 RLS (restless legs syndrome) 02/15/2019 Stable angina pectoris (HCC) 06/26/2020 Type 2 diabetes mellitus with stage 3 chronic kidney disease, with long-term current use of insulin(HCC) 04/04/2015 Dx: age 51. On metformin and [...] pipe, not around patient. Vaping Use Vaping Use: Never used Substance Use Topics Alcohol use: No Drug use: No ACTIVE PROBLEM LIST Type 2 Diabetes Mellitus With Stage 3a Chronic Kidney Disease, With Long-Term Current Use of Insulin ([facility]) Hypertension Hypothyroidism Moderate Persistent Asthma Without Complication KAM (obstructive sleep apnea) CPAP intolerant Insomnia Rls (Restless Legs Syndrome) Class 3 Severe Obesity With Body Mass Index (Bmi) of 40.0 to 44.9 in Adult ([facility]) Edema Other Hyperlipidemia Stable Angina Pectoris ([facility]) Multiple Gallstones Chronic Pain of Both Shoulders Current Outpatient Medications Medication Sig Dispense Refill metFORMIN (GLUCOPHAGE) 500 mg tablet Take 2 tablets by mouth twice daily with meals. 360 tablet 1 levothyroxine (LEVOXYL) 50 mcg tablet Take 1 tablet by mouth once daily. Take on empty stomach. ForThyroid 90 tablet 3 dilTIAZem HCl 360 mg 24 hr capsule Take 1 capsule by mouth once daily. 90 capsule 3 fluticasone-salmeterol (WIXELA INHUB) 250-50 mcg/dose inhaler Inhale 1 Puff as instructed twice daily. Rinse and gargle mouth with water after each use. 3 Each 3 dulaglutide (TRULICITY) 0.75 mg/0.5 mL pen injector Inject 0.75 mg subcutaneously one time a week. Inject dose once per week. Discard Pen After 4 Each 2 glimepiride (AMARYL) 4 mg tablet Take 1 tablet by mouth daily with breakfast. 90 tablet 1 MULTIVITAMIN ORAL Take by mouth once daily. fenofibrate nanocrystallized (TRICOR) 145 mg tablet Take 1 tablet by mouth once daily. 90 tablet 3 olmesartan (BENICAR) 20 mg tablet Take 1 tablet by mouth once daily. 90 tablet 3 insulin glargine (LANTUS SOLOSTAR U-100 INSULIN) 100 unit/mL (3 mL) Inject 30 Units subcutaneously every morning. 5 Pen 5 albuterol HFA (PROVENTIL HFA, VENTOLIN HFA) 90 mcg/actuation inhaler Inhale 2 Puffs as instructed four times daily as needed for Wheezing/Shortness of Breath. FOR WHEEZING AND SHORTNESS OF BREATH. 54g 3 traZODone (DESYREL) 150 mg tablet Take 1 tablet by mouth daily at bedtime. (Patient not taking: Reported on 09/10/2022) 90 tablet 3 No current facility-administered medications for this visit. ADVANCE DIRECTIVE DISCUSSION due on 09/01/2022 DEPRESSION ASSESSMENT Never done EXAM: BP 136/70 Pulse 80 Wt 103 kg (227 lb) SpO2 98% BMI 42.89 kg/m Pleasant overweight adult woman in no acute distress. Alert and oriented all spheres. Normal affectand cognition. Speech normal. No deficits to learning or comprehension. Skin warm, dry, pink to lips and nailbeds. Normal turgor. Respirations regular and unlabored. Chaperoned bilateral breast exam: no masses, lumps, nodes to axilla except small cyst in left nipple which patient demonstrated expresses hazy serous thick fluid. This was cultured. Extrem: no clubbing or cyanosis. Edema: none. Extremities are warm and pink with prompt capillary refill. ASSESSMENT/PLAN: 1. Nipple discharge in female - ICD9: 611.79, ICD10: N64.52 (primary diagnosis) Single breast discharge with cystic structure in nipple, known breast cysts identified on mammo with short term follow up scheduled. Patient identifies concerns for hot flashes which feel like a resurgence of menopause. Recommend consult RETORT COOLER to review: may need cytology on discharge outside my experience. - WOUND CULTURE AND GRAM STAIN - CONSULT TO GYNECOLOGY 2. Type 2 diabetes mellitus with stage 3a chronic kidney disease, with long-term current use of insulin (HCC) - ICD9: 250.40, 585.3, V58.67, ICD10: E11.22, N18.31, Z79.4 Controlled. - Continue current medications Plan: call medicare number on insurance and discuss what medications are covered for diabetes and check on appeal process due to need for weight loss and cardiovascular benefits of GLP1, SGLT2 options. 3. Insomnia, unspecified type - ICD9: 780.52, ICD10: G47.00 Trial low dose doxepin - DOXEPIN 3 MG TABLET F/u otherwise as scheduled Ann Francois PA-C Some of this note may have been copied and pasted for the purpose of history context and comparison. documented in this encounterBarberton [facility] Hospital01-10-2023 Evaluation note* Diagnosis Nipple discharge in female- Primary Other sign and symptom in breast Type 2 diabetes mellitus with stage 3a chronic kidney disease, with long-term current use of insulin (HCC) Insomnia, unspecified type documented in this encounter [facility]01-09-2023 Miscellaneous Notes* Telephone Encounter - Sammie Perez RN - 09/09/2022 9:46 AM EST Patient has been identified by name and date of : Yes, Sammie Perez RN Date 09/09/2022 Time 9:43 am Patient phones for refill(s): Requested Prescriptions Pending Prescriptions Disp Refills metFORMIN (GLUCOPHAGE) 500 mg tablet 360 tablet 1 Sig: Take 2 tablets by mouth twice daily with meals. Patient called to request refill. [facility] because [facility]. [facility], patient told[facility] she wasn't taking it so prescription was inactivated and they need a new prescription. Patientcan't afford Trulicity so never started it. Coming in tomorrow to discuss medication for sleep and abnormality to left breast. Date of last office visit with pcp: 08/23/2022 Future appt: 09/10/2022 Last 2 Encounter Wt Readings: Date: Wt: 08/23/2022 103 kg (227 lb) 07/09/2022 102.1 kg (225 lb) Previous labs/tests for medication: Diabetes: Hemoglobin A1C (%) Date Value 03/11/2022 6.8 09/04/2021 6.3 03/15/2021 6.7 Liver Function: ALT (U/L) Date Value 09/04/2021 20 AST (U/L) Date Value 09/04/2021 19 Please advise. Thank you. Sammie Perez RN documented in this encounterBarberton [facility] Hospital01-04-2023 Evaluation note* Diagnosis Type 2 diabetes mellitus with stage 3a chronic kidney disease, with long-term current use of insulin (HCC) Type 2 diabetes mellitus with stage 3 chronic kidney disease, with long-term current use of insulin (HCC) documented in this encounter [facility]12-25-[facility] Evaluation note* Diagnosis Type 2 diabetes mellitus with stage 3a chronic kidney disease, with long-term current use of insulin (HCC) Type 2 diabetes mellitus with stage 3 chronic kidney disease, with long-term current use of insulin (HCC) documented in this encounter [facility]12-23-2022 Instructions* Patient Instructions* Ann Francois PA-C - 08/23/2022 2:31 PM EST Stop metformin Start trulicity 0.75mg SC weekly Check blood sugars fasting a.m. and 2h after evening meal x 3 days and report results to office by phone or MyChart. Stop trazedone. Dulaglutide: Patient drug information Access upad Online for additional drug information, tools, and databases. Copyright 3117-4900 [employer]. All rights reserved. (For additional information see Dulaglutide: Drug information) Brand Names: [place] Trulicity Brand Names: Valdo Trulicity Warning Drugs like this one have been shown to cause thyroid cancer in some animals. It is not known if this drug may cause thyroid cancer in humans. Call your doctor right away if you have a neck mass, trouble breathing, trouble swallowing, or hoarseness that will not go away. Do not use this drug if you have a health problem called Multiple Endocrine Neoplasia syndrome type2 (MEN 2), or if you or a family member have had thyroid cancer. What is this drug used for? It is used to lower blood sugar in patients with high blood sugar (diabetes). It is used to lower the chance of heart attack, stroke, and in some people. What do I need to tell my doctor BEFORE I take this drug? If you are allergic to this drug; any part of this drug; or any other drugs, foods, or substances. Tell your doctor about the allergy and what signs you had. If you have any of these health problems: Type 1 diabetes or stomach or bowel problems. If you have ever had pancreatitis. If the patient is a child. Do not give this drug to a child. This is not a list of all drugs or health problems that interact with this drug. Tell your doctor and pharmacist about all of your drugs (prescription or OTC, natural products, vitamins) and health problems. You must check to make sure that it is safe for you to take this drug with all of your drugs and health problems. Do not start, stop, or change the dose of any drug withoutchecking with your doctor. What are some things I need to know or do while I take this drug? Tell all of your health care providers that you take this drug. This includes your doctors, nurses,pharmacists, and dentists. Follow the diet and workout plan that your doctor told you about. Wear disease medical alert ID (identification). Check your blood sugar as you have been told by your doctor. Have blood work checked as you have been told by the doctor. Talk with the doctor. Do not drive if your blood sugar has been low. There is a greater chance of you having a crash. It may be harder to control blood sugar during times of stress such as fever, infection, injury, orsurgery. A change in physical activity, exercise, or diet may also affect blood sugar. Kidney problems have happened with drugs like this one. Sometimes, kidney problems have needed to be treated in the hospital. Dialysis has also been needed. Talk with your doctor. Tell your doctor if you have upset stomach, throwing up, diarrhea, or too much sweating. Losing toomuch fluid may raise your chance of kidney problems. If you are dehydrated, talk with your doctor. This drug may prevent other drugs taken by mouth from getting into the body. If you take other drugs by mouth, you may need to take them at some other time than this drug. Talk with your doctor. Do not share pen or cartridge devices with another person even if the needle has been changed. Sharing these devices may pass infections from one person to another. This includes infections you may not know you have. Tell your doctor if you are , plan on getting , or are breast- feeding. You will need to talk about the benefits and risks to you and the baby. What are some side effects that I need to call my doctor about right away? WARNING/CAUTION: Even though it may be rare, some people may have very bad and sometimes deadly side effects when taking a drug. Tell your doctor or get medical help right away if you have any of thefollowing signs or symptoms that may be related to a very bad side effect: Signs of an allergic reaction, like rash; hives; itching; red, swollen, blistered, or peeling skin with or without fever; wheezing; tightness in the chest or throat; trouble breathing, swallowing, ortalking; unusual hoarseness; or swelling of the mouth, face, lips, tongue, or throat. Signs of a pancreas problem (pancreatitis) like very bad stomach pain, very bad back pain, or very bad upset stomach or throwing up. Signs of kidney problems like unable to pass urine, change in how much urine is passed, blood in the urine, or a big weight gain. Change in eyesight. Low blood sugar can happen. The chance may be raised when this drug is used with other drugs for diabetes. Signs may be dizziness, headache, feeling sleepy or weak, shaking, fast heartbeat, confusion, hunger, or sweating. Call your doctor right away if you have any of these signs. Follow what you have been told to do for low blood sugar. This may include taking glucose tablets, liquid glucose, or some fruit juices. What are some other side effects of this drug? All drugs may cause side effects. However, many people have no side effects or only have minor sideeffects. Call your doctor or get medical help if any of these side effects or any other side effects bother you or do not go away: Not hungry. Feeling tired or weak. It is common to have diarrhea, upset stomach, throwing up, or stomach pain with this drug. Call your doctor if any of these side effects get very bad, bother you, or do not go away. These are not all of the side effects that may occur. If you have questions about side effects, call your doctor. Call your doctor for medical advice about side effects. You may report side effects to your national health agency. How is this drug best taken? Use this drug as ordered by your doctor. Read all information given to you. Follow all instructionsclosely. It is given as a shot into the fatty part of the skin on the top of the thigh, belly area, or upperarm. Take with or without food. Drink lots of noncaffeine liquids unless told to drink less liquid by your doctor. Take the same day each week. If you will be giving yourself the shot, your doctor or nurse will teach you how to give the shot. Do not use if the solution is cloudy, leaking, or has particles. Do not use if solution changes color. Wash your hands before and after use. Move site where you give the shot each time. If you are also using insulin, you may inject this drug and the insulin in the same area of the body but not right next to each other. Do not mix this drug in the same syringe with insulin. Keep taking this drug as you have been told by your doctor or other health care provider, even if you feel well. Throw away needles in a needle/sharp disposal box. Do not reuse needles or other items. When the box is full, follow all local rules for getting rid of it. Talk with a doctor or pharmacist if you have any questions. What do I do if I miss a dose? Take a missed dose as soon as you think about it. If it is less than 3 days (72 hours) until your next dose, skip the missed dose. Take your next dose on your normal day. Do not take 2 doses at the same time or extra doses. How do I store and/or throw out this drug? Store in a refrigerator. Do not freeze. Do not use if it has been frozen. If needed, you may store at room temperature for up to 14 days. Write down the date you take this drug out of the refrigerator. If stored at room temperature and not used within 14 days, throw this drug away. Store in the original container to protect from light. Protect from heat. Keep all drugs in a safe place. Keep all drugs out of the reach of children and pets. Throw away unused or drugs. Do not flush down a toilet or pour down a drain unless you are told to do so. Check with your pharmacist if you have questions about the best way to throw out drugs. There may be drug take-back programs in your area. General drug facts If your symptoms or health problems do not get better or if they become worse, call your doctor. Do not share your drugs with others and do not take anyone else's drugs. Some drugs may have another patient information leaflet. If you have any questions about this drug,please talk with your doctor, nurse, pharmacist, or other health care provider. If you think there has been an overdose, call your poison control center or get medical care right away. Be ready to tell or show what was taken, how much, and when it happened. Use of UpToDate is subject to the Subscription and License Agreement. Topic 82752 Version 65.0 [facility] History of Present illness Narrative* Ann Francois PA-C - 08/23/2022 2:00 PM EST 72 year old female with c/o here to establish care. Right ear driving her nuts over 2 years. Not an earache, feeling like something crawling around, sometimes tingling and burning. Asking for something to help inflammation. In spring messed up both shoulder. Instead of getting Stable angina pectoris (hcc) Primary hypertension Other hyperlipidemia Cardiovascular interval hx: 07/20/2020 echo LV size and LVSF WNL, wall motion all WNL RV size and RVSF WNL, eRVSP insuff, at leat 3mmHg, eRAP 3mmHg LA+RA size WNL. Aorta size WNL, PA not visualized No significant valvular disease. Mild MV calcification, 0-1+MVr, 0-1+ TVr, tr-1+ TVr, tr AVr Aortic size WNL 07/14/2020 card cath: right dominant, normal coronaries 04/01/2018 echo LV size +LVSF WNL EF 55%, 5%, grade 1 LVDD, Wall motion WNL RV size + RVSF WNL, eRVSP 32mmHg, [id number] LA+RA size WNL. Aorta size WNL, PA not visualized No significant valvular disease Current meds: Diltiazem 360 mg 1 capsule daily Olmesartan 20 mg daily Fenofibrate 145 mg daily Use of NTG: No Chest pain, arm, jaw pain, neck, or upper back pain suggestive of angina: No. SOB: always SOB with activity, can do a flight of stairs but has to stop and catch breath. Dyspnea with exertion: Yes as baove orthopnea: No Cough : No racing or irregular heartbeats: No palpitations: No syncopal sx: has dizzy spells with movement sometimes, no falls, no syncope Headache: No Unexplainable fatigue: no, tired a ll the time Leg swelling: none Nausea: No diaphoresis: Yes, since hysterectomy age 51 Heartburn: occasional acid reflux Claudication: Not in legs but feet hurt. Smoking: No Following Low cholesterol, high fiber diet? Good with veggies and fruits, red meat 3-4 times a week. If on statin: muscle aches? No If on statin: GI sx or diarrhea? No Additional history none. Lab review: Component Latest Ref Rng & Units 09/04/2021 03/11/2022 WBC 3.70 - 11.00 k/uL 7.23 RBC 3.90 - 5.20 m/uL 4.00 Hemoglobin 11.5 - 15.5 g/dL 11.2 (L) Hematocrit 36.0 - 46.0 % 35.9 (L) MCV 80.0 - 100.0 fL 89.8 MCH 26.0 - 34.0 pG 28.0 MCHC 30.5 - 36.0 g/dL 31.2 RDW-CV 11.5 - 15.0 % 13.4 Platelet Count 150 - 400 k/uL 344 MPV 9.0 - 12.7 fL 10.0 Neut% % 55.0 Abs Neut (ANC) 1.45 - 7.50 k/uL 3.98 Lymph% % 32.2 Abs Lymph 1.00 - 4.00 k/uL 2.33 Pettis% % 7.2 Abs Pettis <0.87 k/uL 0.52 Eosin% % 5.0 Abs Eosin <0.46 k/uL 0.36 Baso% % 0.6 Abs Baso <0.11 k/uL 0.04 Nucleated Reds 0 /100 WBC 0.0 Absolute nRBC <0.01 k/uL <0.01 Diff Type Auto Diff Protein, Total 6.3 - 8.0 g/dL 6.4 Albumin 3.9 - 4.9 g/dL 4.2 Calcium 8.5 - 10.2 mg/dL 9.4 9.8 Bilirubin, Total 0.2 - 1.3 mg/dL 0.2 Alkaline Phosphatase 34 - 123 U/L 52 AST 13 - 35 U/L 19 Glucose 74 - 99 mg/dL 98 67 (L) BUN 7 - 21 mg/dL 20 19 Creatinine 0.58 - 0.96 mg/dL 1.04 (H) 0.94 Sodium 136 - 144 mmol/L 140 140 Potassium 3.7 - 5.1 mmol/L 4.1 4.2 Chloride 97 - 105 mmol/L 102 104 CO2 22 - 30 mmol/L 28 24 Anion Gap 9 - 18 mmol/L 10 12 ALT 7 - 38 U/L 20 eGFR- >60 eGFR-All Other Races . 52 eGFR >=60 mL/min/1.73m 65 Component Latest Ref Rng & Units 09/04/2021 03/11/2022 Cholesterol, Total <200 mg/dL 181 180 Triglyceride <150 mg/dL 90 83 HDL Cholesterol >39 mg/dL 51 59 LDL Cholesterol <100 mg/dL 112 (H) 104 (H) Non HDL Cholesterol <130 mg/dL 130 (H) 121 Fasting Time hrs 12 12 VLDL Cholesterol <30 mg/dL 18 17 TC:HDL Ratio <5.10 3.55 3.05 LDL:HDL Ratio <2.54 2.20 1.76 Kam (obstructive sleep apnea) cpap intolerant Seeing Dr. Carroll next week Moderate persistent asthma without complication Link Trainer Teacher: none. Interval history: Completed Medrol Dosepak 07/06/2022. Current medications: Advair Diskus 2 50-50 MCG per dose 1 puff twice daily Albuterol HFA 90 MCG per actuation 2 puffs 4 times daily prn Worsening shortness of breath: No. Cough: No. Wheezing: No. Smoking: No. Compliant with medications: Yes. Using rescue inhaler: none. Type 2 diabetes mellitus with stage 3a chronic kidney disease, with long-term current use of insulin (formerly [facility]) Current medications: Insulin glargine 30 units subcu every morning Glimepiride 4 mg daily with breakfast Metformin 500 mg 2 tablets twice daily with meals Taking medication as directed consistently? Yes Medication side effects: metformin made her gain weight, diarrhea Medical Issues / Complications: hypertension and hyperlipidemia Checking blood sugars at home? Yes. Checks at night before takes her glargine. Running 170-200 Watching diet? No Physical Activity: Sedentary Hypoglycemic spells? No Any visual disturbance? 59 a few nights ago Chest pain? No New numbness, tingling or loss of sensation? No Any recent foot problems, sores or rashes? No Any recent or sudden weight loss? No Change in urination? Yes. If yes: Any recent illness? No Last eye exam: 02/04/2022. No retinopathy Last foot exam up to date. HBA1C: Hemoglobin A1C (%) Date Value 03/11/2022 6.8 09/04/2021 6.3 03/15/2021 6.7 ) CMP: Glucose 67 03/11/2022 BUN 19 03/11/2022 Creatinine 0.94 03/11/2022 Sodium 140 03/11/2022 Potassium 4.2 03/11/2022 Chloride 104 03/11/2022 CO2 24 03/11/2022 Protein, Total 6.4 09/04/2021 Albumin 4.2 09/04/2021 Calcium 9.8 03/11/2022 Alkaline Phosphatase 52 09/04/2021 Bilirubin, Total 0.2 09/04/2021 AST 19 09/04/2021 ALT 20 09/04/2021 Last 2 Encounter Wt Readings: Date: Wt: 07/09/2022 102.1 kg (225 lb) 07/06/2022 101.6 kg (224 lb) Component Latest Ref Rng & Units 07/04/2020 03/11/2022 Creatinine, Ur Random (UCRR) 20.0 - 300.0 mg/dL 190.9 172.9 Albumin, Urine Random mg/L 39.9 <12.0 Albumin/Creat Ratio <30 mg/g 21 <7 Hypothyroidism, unspecified type Current medication: Levothyroxine 50 mcg daily AC Taking as directed on an empty stomach? Yes. Thyroid pain: No. Mass effect: No. Change in energy level/ fatigue? No. Always Sleep disturbance ? Terrible- something aching hurting, twitching. Does a lot of movement at night. Temperature Intolerance: cold No, hot Yes. Hot flashes In females, menstrual cycle issues? No, If yes: Change in bowel habits? No. If yes: Constipation? No. If yes: Diarrhea? No. If yes: Weight changes?No. Memory issues: No. Diaphoresis: No. Numbness, tingling none Radiological imaging with contrast dyes within the last 3 months? No. History of radiation exposure to head or neck area? No. Change in hair or skin? No. If yes: Other symptoms: Last 2 Encounter Wt Readings: Date: Wt: 07/09/2022 102.1 kg (225 lb) 07/06/2022 101.6 kg (224 lb) Last thyroid labs: TSH (uU/mL) Date Value 09/04/2021 3.880 07/28/2020 3.460 ) Class 3 severe obesity due to excess calories with serious comorbidity and body mass index (bmi) of40.0 to 44.9 in adult (formerly [facility]) Vitals 05/15/2022 05/15/2022 07/06/2022 07/09/2022 WEIGHT in POUNDS 223 lb 224 lb 225 lb Insomnia, unspecified type Rls (restless legs syndrome) Current medications: Trazodone 150 mg daily at bedtime Taking trazedone for a long time. Chronic pain of both shoulders Bilateral shoulder pain R>L 07/29/2022 consult Terrence [facility] ortho recommend topical NSAID and PT 07/29/2022 PT 1 visit 07/26/2022 XR bilateral shoulders: left calcific tendonitis supraspinatus, DJD bilateral ACJ 07/06/2022 EC visit Will Jimenez [employer] CAL[employer]RATOR Rx Medrol dose pack Current medications: Voltaren cream once before bedtime. Multiple gallstones 03/12/2022 [facility] ED visit upper abd pain and nausea US RUQ liver enlargement 22.3cm, fatty infiltration, normal GB with multiple stones, normal pancreas and right kidney CT ab/pel with IVCON: Atelectasis bibasilar, liver steatosis, gallbladder multiple stones, 8.6 cm cyst right kidney lower lobe, small hiatal hernia, scattered aortic calcification, small umbilical hernia with fat. 07/02/2022 mammo inconclusive: oval focal aymetry left breast 3:00 indeterminate. Left breast US: - The 0.6 cm x 0.5 cm x 0.3 cm oval cyst in the left breast at 3 o'clock middle depth has a differential diagnosis of a complicated cyst and is probably benign. Follow-up mammogram and ultrasound in 6 months is recommended. - The 0.8 cm x 0.6 cm x 0.6 cm lobulated cyst in the left breast at 2 o'clock middle depth has a differential diagnosis of a complicated cyst and is probably benign. Follow-up mammogram and ultrasound in 6 months is recommended. Additional ROS: Stress incontinence. Hx 10lb. Not sexually active Never smoker, Had some ETOH in past until started diabetes. No illicit 35 year x 2 before HISTORIES FAMILY HISTORY Adopted: Yes Family history unknown: Yes PAST MEDICAL HISTORY Diagnosis Date Hypertension Hypothyroidism Insomnia 03/19/2016 Moderate persistent asthma without complication 07/11/2015 07/07/15 Methacholine Inhalation Challenge: 35% drop FEV1 at 2.5 mg/mL. Morbid obesity ([facility]) 04/04/2015 Patient has morbid obesity. KAM (obstructive sleep apnea) 09/26/2015 DME: [facility] Other hyperlipidemia 03/23/2019 RLS (restless legs syndrome) 02/15/2019 Stable angina pectoris ([facility]) 06/26/2020 Type 2 diabetes mellitus with stage 3 chronic kidney disease, with long-term current use of insulin([facility]) 04/04/2015 Dx: age 51. On metformin and [...] pipe, not around patient. Vaping Use Vaping Use: Never used Substance Use Topics Alcohol use: No Drug use: No ACTIVE PROBLEM LIST Type 2 Diabetes Mellitus With Stage 3a Chronic Kidney Disease, With Long-Term Current Use of Insulin ([facility]) Hypertension Hypothyroidism Moderate Persistent Asthma Without Complication KAM (obstructive sleep apnea) CPAP intolerant Insomnia Rls (Restless Legs Syndrome) Class 3 Severe Obesity With Body Mass Index (Bmi) of 40.0 to 44.9 in Adult ([facility]) Edema Other Hyperlipidemia Stable Angina Pectoris ([facility]) Multiple Gallstones Chronic Pain of Both Shoulders Current Outpatient Medications Medication Sig Dispense Refill dilTIAZem HCl 360 mg 24 hr capsule Take 1 capsule by mouth once daily. 90 capsule 1 metFORMIN (GLUCOPHAGE) 500 mg tablet Take 2 tablets by mouth twice daily with meals. 360 tablet 1 glimepiride (AMARYL) 4 mg tablet Take 1 tablet by mouth daily with breakfast. 90 tablet 1 levothyroxine (LEVOXYL) 50 mcg tablet Take 1 tablet by mouth once daily. Take on empty stomach. ForThyroid 90 tablet 1 methylPREDNISolone (MEDROL DOSE-PACK) 4 mg Dose-Pack As Instructed per package 21 tablet 0 MULTIVITAMIN ORAL Take by mouth once daily. fenofibrate nanocrystallized (TRICOR) 145 mg tablet Take 1 tablet by mouth once daily. 90 tablet 3 olmesartan (BENICAR) 20 mg tablet Take 1 tablet by mouth once daily. 90 tablet 3 insulin glargine (LANTUS SOLOSTAR U-100 INSULIN) 100 unit/mL (3 mL) Inject 30 Units subcutaneously every morning. 5 Pen 5 traZODone (DESYREL) 150 mg tablet Take 1 tablet by mouth daily at bedtime. 90 tablet 3 ADVAIR DISKUS 250-50 mcg/dose inhaler INHALE 1 PUFF BY MOUTH TWICE A DAY. RINSE & GARGLE MOUTH WITH WATER AFTER EACH USE 60 Each 5 albuterol HFA (PROVENTIL HFA, VENTOLIN HFA) 90 mcg/actuation inhaler Inhale 2 Puffs as instructed four times daily as needed for Wheezing/Shortness of Breath. FOR WHEEZING AND SHORTNESS OF BREATH. 54g 3 No current facility-administered medications for this visit. BP CONTROLLED (<130/80) Never done DTAP,TDAP,TD(1 - Tdap) due on 1970 DEPRESSION ASSESSMENT Never done COVID-19 VACCINE(5 - Booster for Pfizer series) due on 03/28/2022 INFLUENZA(1) due on 05/02/2022 EXAM: BP 128/68 Pulse 70 Resp 20 Wt 103 kg (227 lb) SpO2 98% BMI 42.89 kg/m Pleasant older in no acute distress. Alert and oriented all spheres. Normal affect and cognition. Speech normal. No deficits to learning or comprehension. Skin warm, dry, pink to lips and nailbeds. Normal turgor. Flat brown keratosis on right upper chestwith whitish scaly area- appears benign. Respirations regular and unlabored. HEENT: NCAT. No scleral icterus or conjunctival injection. TM's clear. Nose and oropharynx free from injection or lesion. Oral membranes moist and pink. No cervical lymph nodes. Thyroid non-tender, no masses, or enlargement. Carotids pulses 2+/4+ without bruits. No JVD with HOB at 30 degrees. Chest is normal shape. Lungs are clear to all barnett with good air exchange through out. HRRR without murmur or gallop. No lifts, heaves, or rubs. Abdomen: active bowel sounds throughout, soft, nontender, no masses or organomegaly. No CVAT. No abdominal bruits, axillary or inguinal nodes. Femoral pulses 2/4+ without bruit. No rashes in folds. Extrem: no clubbing or cyanosis. Edema: none. Extremities are warm and pink with prompt capillary refill. DPP 2/4+, toes warm, pink, smooth nails. Neuro grossly intact. Normal gait and balance. ASSESSMENT/PLAN: 1. Encounter to establish care - ICD9: V65.8, ICD10: Z76.89 (primary diagnosis) 2. Stable angina pectoris (HCC) - ICD9: 413.9, ICD10: I20.8 Prior testing with normal coronaries - LIPID PANEL BASIC - CBC + DIFF - COMP METABOLIC PANEL 3. Primary hypertension - ICD9: 401.9, ICD10: I10 - good control - Continue current medication(s) - Recommended regular aerobic exercise. - Recommend home blood pressure monitoring, to bring results in on next visit - Goal of BP <130/80 - CBC + DIFF - COMP METABOLIC PANEL 4. Other hyperlipidemia - ICD9: 272.4, ICD10: E78.49 Stable lipid, continue meds. 5. KAM (obstructive sleep apnea) CPAP intolerant - ICD9: 327.23, ICD10: G47.33 Seeing sleep med in September 6. Moderate persistent asthma without complication - ICD9: 493.90, ICD10: J45.40 Mild intermittent Asthma stable - Continue current meds - Avoidance of triggers recommended - FLUTICASONE 250 MCG-SALMETEROL 50 MCG/DOSE BLISTR POWDR FOR INHALATION 7. Type 2 diabetes mellitus with stage 3a chronic kidney disease, with long-term current use of insulin (HCC) - ICD9: 250.40, 585.3, V58.67, ICD10: E11.22, N18.31, Z79.4 Controlled. - Discontinue metformin (Glucophage) - eGFR: Stable - Albuminuria: No - Counseled on avoiding regular use of NSAIDs, adequate hydration, potential risk of IV dye - TRULICITY 0.75 MG/0.5 ML SUBCUTANEOUS PEN INJECTOR - HGB A1C - LIPID PANEL BASIC - CBC + DIFF - COMP METABOLIC PANEL 8. Hypothyroidism, unspecified type - ICD9: 244.9, ICD10: E03.9 - Instructed patient on importance of taking on an empty stomach either first thing in the morning or at bedtime. Stable - Behavioral intervention - LEVOTHYROXINE 50 MCG TABLET - TSH BLD 9. Class 3 severe obesity due to excess calories with serious comorbidity and body mass index (BMI)of 40.0 to 44.9 in adult ([facility]) - ICD9: 278.01, V85.41, ICD10: E66.01, Z68.41 Stable - Behavioral intervention 10. Insomnia, unspecified type - ICD9: 780.52, ICD10: G47.00 11. RLS (restless legs syndrome) - ICD9: 333.94, ICD10: G25.81 RLS sx correlate with initiation of trazedone: stop med and re-evaluate in 3 motnhs 12. Chronic pain of both shoulders - ICD9: 719.41, 338.29, ICD10: M25.511, G89.29, M25.512 Reviewed findings with calcific supraspinatus tendon: surgical problem. Bilateral AC spurring. Should continue PT 13. Multiple gallstones - ICD9: 574.20, ICD10: K80.20 Resolved s/p choly 14. Inconclusive mammogram - ICD9: 793.82, ICD10: R92.2 Has f/u scheduled 15. Essential hypertension - ICD9: 401.9, ICD10: I10 - good control - Continue current medication(s) - Recommended regular aerobic exercise. - Recommend home blood pressure monitoring, to bring results in on next visit - Goal of BP <130/80 - DILTIAZEM CD 360 MG CAPSULE,EXTENDED RELEASE 24 HR 16. Type 2 diabetes mellitus with stage 3 chronic kidney disease, with long-term current use of insulin ([facility]) - ICD9: 250.40, 585.3, V58.67, ICD10: E11.22, N18.30, Z79.4 Controlled. - Add dulaglutide 0.75mg SC weekly - Discontinue (Glucophage) due to diarrhea - recheck labs 3 months. Anticipated d/c glipizide and owrk on lowering insulin. Plan to add empaglaflozin - TRULICITY 0.75 MG/0.5 ML SUBCUTANEOUS PEN INJECTOR - HGB A1C - LIPID PANEL BASIC - CBC + DIFF - COMP METABOLIC PANEL 17. Low vitamin D level - ICD9: 790.6, ICD10: R79.89 - VITAMIN D 25 HYDROXY 55 minute visit F/u 3 months Ann Francois PA-C documented in this encounterBar[facility]11[facility]28-[facility]22 History of Present illness Narrative* Rossana Carpio, PT - 07/29/2022 2:26 PM EST Episode Visit Count: 1 Therapist That Will Accept/Oversee The Plan Of Care: Rossana Carpio Start of Care Date: 07/29/22 Onset Date: 10/30/21 Plan of Care Certification Date: 07/29/22 Next Certification Due Date: 09/28/22 Patient Identified by Name and Date of : Yes REHABILITATION AND SPORTS THERAPY PHYSICAL THERAPY EVALUATION PLAN OF CARE: Assessment: Chloe Guillory presents with diagnosis of chronic pain of both shoulders that interferes with lifting;sleeping;reaching overhead;use hand with arm at shoulder level;reaching behind back;Comments Cookling, cleaning, driving, everything bothers it, but I just do it.. She presents with impairments in overall function, posture, range of motion, strength , and tissue tenderness. Prognosis for therapy is Good due to: current objective clinical presentation;good overall health status;good support system/ coping skills . She will benefit from skilled therapy services to meet the goals established for this plan of care as noted below. Goals for Episode of Care: created on 07/29/22 through 09/28/22 [place] in home exercise program. Patient will decrease pain rating by 2 points to meet minimal clinical important difference for numeric pain rating scale. Patient will increase active ROM of B shld to 120-150deg flex, 120-130 deg abd, ext to 45 -60 deg to allow pt to to improve performance of ADLs. Patient will demonstrate increase in B UE strength to 4+ to 5/5 during manual muscle testing in order to improve function for home management tasks and prior functional tasks. Perform lifting;sleeping;reaching overhead;use hand with arm at shoulder level;reaching behind back; cooking, cleaning, and driving; with decreased report of symptoms/pain in 6-8 weeks. Improve postural awareness. Patient Goals: To be abl eto use my arms again normally without the pain. Planned Interventions, Frequency, and Duration: Current Frequency: 1x/week Duration: 8 weeks Total Number of Visits Planned: 8 Planned Treatment Interventions: Therapeutic exercise (06163);Neuromuscular re- education (34366);Manual therapy (23441);Patient/Family/Caregiver Education PLAN FOR NEXT VISIT: Assess response to HEP and review for correct performance. May add seated pulleys for PROM, or pendulums if any pain with pulleys. Progress HEP as appropriate. Patient demonstrates good understanding of plan of care and treatment. The above goals and plan of care were discussed and agreed upon by patient/family. SUBJECTIVE: Chloe Guillory is a 72 year old female seen today for Pt reports onset of B shoulder pain after doing yard cleanup this spring and just kept getting worse and worse over the summer. Notes she couldn't even lift her arm to get deodorant on until she got the Prednisone medication. Currently pain is constant, now getting some cramping and pain into R mid to upper arm, too. R worse than L overall. Difficulty just getting dressed and ready in the mornings. Since the prednisone, she is only being awoken by the R shld pain, not both as before. Patient Goals: To be abl eto use my arms again normally without the pain. Functional Limitations: lifting;sleeping;reaching overhead;use hand with arm at shoulder level;reaching behind back;Comments Functional Limitation Comments: Cookling, cleaning, driving, everything bothers it, but I just do it. 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 Intake Information: Prescription present Previous Treatment: Steroids ;Heat ;Ice ;Topicals Pain: Pain Pain Level: 6 Pain Location: Shoulder - Right Description: Aching Frequency: Continuous Additional Pain Information : Location 2 Pain Level 2: 3 Pain Location 2: Shoulder - Left Description 2: Aching Frequency 2: Intermittent Post Treatment Pain Post Treatment Pain Level: No Change Post Treatment Pain Score 2: No Change PROMIS Scales Higher is Better 11/14/2015 03/19/2016 04/21/2017 GH Physical - Percentile - 15 % 31 % GH Mental - Percentile 34 % 34 % 34 % T-scores: mean of general population = 50. 5 points is clinically meaningfully difference Percentiles provide an indication of how the patient's score ranks in relation to the general population. Higher percentile rankings indicate better function/quality of life. 50th percentile is the average of the general population and indicates half of respondents had a worse score. T-scores: mean of general population = 50. 5 points is clinically meaningfully difference Percentiles provide an indication of how the patient's score ranks in relation to the general population. Higher percentile rankings indicate better function/quality of life. 50th percentile is the average of the general population and indicates half of respondents had a worse score. OBJECTIVE MEASURES WITH LEVEL OF FUNCTION: Posture / Alignment Posture: Rounded shoulders;Decreased lumbar lordosis UE AROM R Shoulder Extension: 35 Degrees (pain) R Shoulder Flex: 90 Degrees (pain) R Shoulder ABduction: 65 Degrees (pain) R Shoulder Internal Rotation (Functional): back of hand to lateral buttock (pain) R Shoulder External Rotation: 58 Degrees L Shoulder Extension: 35 Degrees (min pain) L Shoulder Flex: 120 Degrees (pain, tolerable) L Shoulder ABduction: 75 Degrees (pain, tolerable) L Shoulder Internal Rotation (Functional): thumb to T10 L Shoulder External Rotation: 60 Degrees (min pain) UE and Cervical Strength Strength Tested: Shoulder All R Shoulder Flexion: 4/5 (pain) R Shoulder Abduction (C5): 4-/5 (pain) R Shoulder Internal Rotation: 4/5 (pain) R Shoulder External Rotation: 4-/5 (pain) L Shoulder Flexion: 4/5 (pain) L Shoulder Abduction (C5): 4-/5 (pain) L Shoulder Internal Rotation: 4/5 (normal pian) L Shoulder External Rotation: 4-/5 (pain) Special Tests - Shoulder Shoulder Special Tests: Empty Can Empty Can: Right Positive;Left Negative Education: Education Learning Preferences: Demonstration;Explanation Barriers: None Learning/educational needs: Home exercise program;Plan of Care Education Provided: Yes, see treatment interventions for education provided Education Provided To: Patient Education Mode/Type: Demonstration;Explanation/Discussion;Literature/Printed Materials;Performance Response to Education/Teach Back: States/Identifies;Return Demonstration TREATMENT: PT Treatment Interventions: Therapeutic Exercise Evaluation Therapeutic Exercise: 1: *isometric shld flex 5 sec, 2 x10 2: *isometric shld ext x 5 sec, 2 x 10 3: *isometric shld IR x 5 sec, 2 x 5 4: *isometric shld ER x 5 sec, 2 x 5 Skilled Intervention: Patient was educated in proper exercise technique and purpose for exercises. Skilled judgment was provided in selection of appropriate interventions. Provided written instruction for home exercise program to facilitate proper performance and compliance. Correct performance of therapeutic exercises was facilitated with verbal and visual cuing. Patient education as noted. Billing * Evaluation Low Complexity: 1 Unit Therapeutic Exercise Treatment Minutes: 15 Total Treatment Time Minutes (timed/untimed): 43 Rossana Carpio PT documented in this encounterBarberton [facility]11-08-2022 History of Present illness Narrative* Juliana Pressley APRN.GLASS CALIBRATOR - 07/09/2022 2:33 PM EST CC: Patient presents with: [facility] care follow up HPI Chloe Guillory is a 72 year old female who presents today for above. She was seen in urgent care in October for this. X-ray of the shoulder showed mild arthritis with no fracture. Since then the pain has worsened and has moved into her biceps. She was seen in UC on Friday 07/06 for worsening shoulder pain, ROM, and weakness. She was started on Methylprednisolone for the muscle pain with some improvement but knows she can't stay on it due to her diabetes and it effecting her blood sugars. Pain is constant and achy. She hasn't taken any medications for the pain shestates due to her kidney disease. Has tried ice, heat, and ointments with no relief. Pain doesn't radiate down her arms or into her chest. She denies neck pain. States she sometimes gets a numbness/tingling feeling at night but might be due to the way she sleeps. 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 REVIEW OF SYSTEMS GENERAL: Negative for malaise, significant weight loss and fever RESPIRATORY: Negative for cough, wheezing and shortness of breath CARDIOVASCULAR: Negative for chest pain, leg swelling and palpitations MUSCULOSKELETAL: See HPI All other systems negative. PAST MEDICAL HISTORY Diagnosis Date Hypertension Hypothyroidism Insomnia 03/19/2016 Moderate persistent asthma without complication 07/11/2015 07/07/15 Methacholine Inhalation Challenge: 35% drop FEV1 at 2.5 mg/mL. Morbid obesity (HCC) 04/04/2015 Patient has morbid obesity. KAM (obstructive sleep apnea) 09/26/2015 DME: [facility] Other hyperlipidemia 03/23/2019 RLS (restless legs syndrome) 02/15/2019 Stable angina pectoris ([facility]) 06/26/2020 Type 2 diabetes mellitus with stage 3 chronic kidney disease, with long-term current use of insulin([facility]) 04/04/2015 Dx: age 51. On metformin and [...] HYSTERECT W/WO RMVL TUBE OVARY 2000 ALLERGIES Dust, Jardiance [Empagliflozin], Mold, and Victoza [Liraglutide] MEDICATIONS methylPREDNISolone (MEDROL DOSE-PACK) 4 mg Dose-Pack As Instructed per package MULTIVITAMIN ORAL Take by mouth once daily. fenofibrate nanocrystallized (TRICOR) 145 mg tablet Take 1 tablet by mouth once daily. olmesartan (BENICAR) 20 mg tablet Take 1 tablet by mouth once daily. insulin glargine (LANTUS SOLOSTAR U-100 INSULIN) 100 unit/mL (3 mL) Inject 30 Units subcutaneously every morning. dilTIAZem HCl 360 mg 24 hr capsule Take 1 capsule by mouth once daily. glimepiride (AMARYL) 4 mg tablet Take 1 tablet by mouth daily with breakfast. levothyroxine (LEVOXYL) 50 mcg tablet Take 1 tablet by mouth once daily. Take on empty stomach. ForThyroid metFORMIN (GLUCOPHAGE) 500 mg tablet Take 2 tablets by mouth twice daily with meals. traZODone (DESYREL) 150 mg tablet Take 1 tablet by mouth daily at bedtime. ADVAIR DISKUS 250-50 mcg/dose inhaler INHALE 1 PUFF BY MOUTH TWICE A DAY. RINSE & GARGLE MOUTH WITH WATER AFTER EACH USE albuterol HFA (PROVENTIL HFA, VENTOLIN HFA) 90 mcg/actuation inhaler Inhale 2 Puffs as instructed four times daily as needed for Wheezing/Shortness of Breath. FOR WHEEZING AND SHORTNESS OF BREATH. FAMILY HISTORY Adopted: Yes Family history unknown: Yes Social History Tobacco Use Smoking status: Never Smokeless tobacco: Never Tobacco comments: NO smoking in childhood home. Spouse smokes pipe, not around patient. Vaping Use Vaping Use: Never used Substance Use Topics Alcohol use: No Drug use: No PHYSICAL EXAM BP 137/73 Pulse 69 Resp 18 Wt 102.1 kg (225 lb) BMI 42.51 kg/m General Appearance: well appearing, in no acute distress, alert Lungs: Lungs clear to auscultation. No wheezing, rhonchi, rales. Heart: RRR without murmur, gallop, or rubs. No ectopy Bilateral Upper Extremities: Positive findings: joint location: bilateral shoulder pain, loss of ROM, and stiffness. Negative for muscle weakness, joint swelling, deformity, or tenderness DATA REVIEWED: last shoulder x-ray ASSESSMENT/PLAN: 1. Chronic pain of both shoulders - ICD9: 719.41, 338.29, ICD10: M25.511, G89.29, M25.512 (primary diagnosis) Chronic, improved with medrol - CONSULT TO ORTHOPAEDICS for further evaluation and recommendations - CONSULT TO PHYSICAL THERAPY Prescription instructions reviewed with patient as applicable. Potential red flag symptoms discussed with the patient. Reviewed appropriate action plan to take if red flag symptoms occur. Patient agreeable to treatment plan. documented in this encounterBarberton [facility]11-05-2022 History of Present illness Narrative* Miguelito Jimenez APRN.CNP - 07/06/2022 10:20 AM EDT Images from the original note were not included. Subjective HPI HPI Chloe Guillory is a 72 year old female who presents today for CC of bilat shoulder/arm pain for months getting worse. Has tried otc medication for relief. Symptoms are worsened at night. Denies fever and other joint ache/problem. Denies injury and numbness/tingling. .Patient presents with: Pain (upper Arm): Bilateral with shoulders hurting. PAST MEDICAL HISTORY Diagnosis Date Hypertension Hypothyroidism Insomnia 03/19/2016 Moderate persistent asthma without complication 07/11/2015 07/07/15 Methacholine Inhalation Challenge: 35% drop FEV1 at 2.5 mg/mL. Morbid obesity (HCC) 04/04/2015 Patient has morbid obesity. KAM (obstructive sleep apnea) 09/26/2015 DME: [facility] Other hyperlipidemia 03/23/2019 RLS (restless legs syndrome) 02/15/2019 Stable angina pectoris ([facility]) 06/26/2020 Type 2 diabetes mellitus with stage 3 chronic kidney disease, with long-term current use of insulin([facility]) 04/04/2015 Dx: age 51. On metformin and [...] HYSTERECT W/WO RMVL TUBE OVARY 2000 ALLERGIES Dust, Jardiance [Empagliflozin], Mold, and Victoza [Liraglutide] MEDICATIONS MULTIVITAMIN ORAL Take by mouth once daily. fenofibrate nanocrystallized (TRICOR) 145 mg tablet Take 1 tablet by mouth once daily. olmesartan (BENICAR) 20 mg tablet Take 1 tablet by mouth once daily. insulin glargine (LANTUS SOLOSTAR U-100 INSULIN) 100 unit/mL (3 mL) Inject 30 Units subcutaneously every morning. dilTIAZem HCl 360 mg 24 hr capsule Take 1 capsule by mouth once daily. glimepiride (AMARYL) 4 mg tablet Take 1 tablet by mouth daily with breakfast. levothyroxine (LEVOXYL) 50 mcg tablet Take 1 tablet by mouth once daily. Take on empty stomach. ForThyroid metFORMIN (GLUCOPHAGE) 500 mg tablet Take 2 tablets by mouth twice daily with meals. traZODone (DESYREL) 150 mg tablet Take 1 tablet by mouth daily at bedtime. ADVAIR DISKUS 250-50 mcg/dose inhaler INHALE 1 PUFF BY MOUTH TWICE A DAY. RINSE & GARGLE MOUTH WITH WATER AFTER EACH USE albuterol HFA (PROVENTIL HFA, VENTOLIN HFA) 90 mcg/actuation inhaler Inhale 2 Puffs as instructed four times daily as needed for Wheezing/Shortness of Breath. FOR WHEEZING AND SHORTNESS OF BREATH. methylPREDNISolone (MEDROL DOSE-PACK) 4 mg Dose-Pack As Instructed per package FAMILY HISTORY Adopted: Yes Family history unknown: Yes Social History Tobacco Use Smoking status: Never Smokeless tobacco: Never Tobacco comments: NO smoking in childhood home. Spouse smokes pipe, not around patient. Vaping Use Vaping Use: Never used Substance Use Topics Alcohol use: No Drug use: No ROS Objective Blood pressure 130/72, pulse 76, weight 101.6 kg (224 lb), SpO2 97 %. Physical Exam Constitutional: General: She is not in acute distress. Appearance: She is not toxic-appearing or diaphoretic. HENT: Head: Normocephalic and atraumatic. Cardiovascular: Pulses: Radial pulses are 2+ on the right side and 2+ on the left side. Pulmonary: Effort: Pulmonary effort is normal. No accessory muscle usage or respiratory distress. Musculoskeletal: Arms: Neurological: Mental Status: She is alert and oriented to person, place, and time. Deep Tendon Reflexes: Reflex Scores: Brachioradialis reflexes are 2+ on the right side and 2+ on the left side. ASSESSMENT/PLAN: 1. Muscle pain - ICD9: 729.1, ICD10: M79.10 Try steroids and schedule with pcp this week for recheck. - METHYLPREDNISOLONE 4 MG TABLETS IN A DOSE PACK Miguelito Jimenez APRN.DEANDRE documented in this encounterBarberton [facility]11-01-2022 History of Present illness Narrative* Marcia Richmond, MATTHEW - 07/02/2022 2:00 PM EDT Radiology Service Progress Note PATIENT NAME: Chloe Guillory DATE OF SERVICE: July 02, 2022 TIME: 3:28 PM PATIENT IDENTITY VERIFICATION COMPLETED USING TWO (2) IDENTIFIERS: Name and Date of confirmedby patient verbally. FALL SCREENING: Has the patient had 2 falls in the last year or 1 fall with injury or currently using an Ambulatory Assistive Device (Walker, Cane, Wheelchair, Crutches, etc.)? No PATIENT GENDER DATA: Female. status: : No status: NO. PATIENT RELEVANT IMPLANT DATA REVIEWED: Not Applicable RADIOLOGY DEPARTMENT: Ultrasound PERIPHERAL IV DATA: Not applicable SIGNED BY: Marcia Richmond RDMS RVT July 02, 2022 3:28 PM documented in this encounterBarberton [facility] Hospital11-01-2022 History of Present illness Narrative* Aida Lutz RT(R) - 07/02/2022 1:30 PM EDT Radiology Service Progress Note PATIENT NAME: Chloe Guillory DATE OF SERVICE: July 02, 2022 TIME: 1:30 PM PATIENT IDENTITY VERIFICATION COMPLETED USING TWO (2) IDENTIFIERS: Name and Date of confirmedby patient verbally. FALL SCREENING: Has the patient had 2 falls in the last year or 1 fall with injury or currently using an Ambulatory Assistive Device (Walker, Cane, Wheelchair, Crutches, etc.)? No PATIENT GENDER DATA: Female. status: : No status: NO. PATIENT RELEVANT IMPLANT DATA REVIEWED: Not Applicable RADIOLOGY DEPARTMENT: Mammography PERIPHERAL IV DATA: Not applicable SIGNED BY: RT Jan(R) July 02, 2022 1:30 PM documented in this encounterBarberton Citizens Hospital10-03-2022 Miscellaneous Notes* Letter - Mammography Coordinator - 06/03/2022 10:24 AM EDT June 03, 2022 PID: [id number] Chloe Guillory [address] [place] [address] Dear Ms. Guillory, Your recent breast imaging exam on 06/03/2022 showed a possible finding that requires additional imaging studies for a complete evaluation. Most such findings are probably benign (not cancer). Your mammogram demonstrates that you have dense breast tissue, which could hide abnormalities. Dense breast tissue, in and of itself, is a relatively common condition. Therefore, this information is not provided to cause undue concern; rather, it is to raise your awareness and promote discussion with your health care provider regarding the presence of dense breast tissue in addition to other riskfactors. If you have a healthcare provider who ordered/prescribed your screening mammogram: Please call [phone] or EXT: [phone] to schedule an appointment for your additional imaging (if youhave not already done so). If you DO NOT have a healthcare provider (ie you did not have an order/prescription for your screening mammogram): Please call to schedule an appointment for your additional imaging (if you have not already done so). You must have an order/prescription from your physician when calling to schedule your appointment. If your order/prescription is not electronic, you must bring the hard copy with you on the day of your exam to avoid delays. Your imaging studies and reports are kept on file at [facility] as part of your permanent medical record, and are available for your continuing care. Thank you for allowing us to help in meeting your health care needs. Sincerely, Dr. Montiel Interpreting Radiologist [facility] (Additional imaging) documented in this encounterBarberton Citizens Hospital10-03-2022 History of Present illness Narrative* RT Jan(Paulo) - 06/03/2022 10:10 AM EDT Radiology Service Progress Note PATIENT NAME: Chloe Guillory DATE OF SERVICE: June 03, 2022 TIME: 9:52 AM PATIENT IDENTITY VERIFICATION COMPLETED USING TWO (2) IDENTIFIERS: Name and Date of confirmedby patient verbally. FALL SCREENING: Has the patient had 2 falls in the last year or 1 fall with injury or currently using an Ambulatory Assistive Device (Walker, Cane, Wheelchair, Crutches, etc.)? No PATIENT GENDER DATA: Female. status: : No status: NO. PATIENT RELEVANT IMPLANT DATA REVIEWED: Not Applicable RADIOLOGY DEPARTMENT: Mammography PERIPHERAL IV DATA: Not applicable SIGNED BY: RT Jan(Paulo) June 03, 2022 9:52 AM documented in this encounterBarberton Citizens Hospital09-14-2022 History of Present illness Narrative* Maggy Akers MD - 05/15/2022 12:59 PM EDT FOLLOW UP VISIT NAME: Chloe Guillory [facility] NO.: [id number] DATE OF SERVICE: 05/15/2022 : 1950 REFERRING PHYSICIAN: Scar Ceballos MD Chloe is status post laparoscopic cholecystectomy done on 05/07/2022. Pathology reveals cholesterolosis, chronic cholecystitis and cholelithiasis Patient denies any problems. VITALS: Blood pressure 128/62, pulse 87, temperature 36.3 C (97.4 F), height 154.9 cm (5' 1), weight 101.2 kg (223 lb), SpO2 97 %. On examination, abdomen is soft benign and obese Trocar incisional sites are well healed and without evidence of infection Assessment IMPRESSION: status post laparoscopic cholecystectomy PLAN: Patient encouraged to follow up with me if any worsening signs/symptoms. Patient to return to PCP for medical care. Diagnoses: (Z90.49) Status post laparoscopic cholecystectomy (primary encounter diagnosis) I have confirmed and edited as necessary, the PFSH and ROS obtained by others. Maggy Akers MD documented in this encounterBarberton Citizens Hospital09-06-2022 Hospital Discharge instructions Additional Instructions Recommended pain control regimen - May take 600 mg ibuprofen (Motrin) and then in 3-4 hours, may take 650 mg acetaminophen (Tylenol), then in 3-4 hours may take 600 mg ibuprofen, then in 3-4 hours may take 650 mg acetaminophen and so on for 2-3 days May take narcotic pain medication for pain that is not controlled by above and at night for comfort through the night Leave dressings in place May shower, do not scrub in the areas of the dressings as they may unravel. If they become overly soiled you may remove them but leave incision site open to air. Do not soak - no tub baths/swimming Ice applied to areas of discomfort may help No lifting/pushing/pulling greater than 20 pounds for two weeks. Regular diet as tolerated, drink plenty of fluids. Avoid carbonated beverages for a few days as this will cause abdominal bloating and thus discomfort after our surgery. Please call my office for an appointment to see me in 1-2 weeks. Office number is If any questions, please call my office at and ask the grinder operator tool for the general surgery nurses desk Implant Used?: [facility] [place] Work Phone: [phone] 331-218008-31-2022 History of Present illness Narrative* Scar Ceballos MD - 05/01/2022 11:07 AM EDT This note was created using [employer]. Subjective Chloe Guillory is a 72 year old female. She complained of worsening chronic fatigue. She had untreated obstructive sleep apnea. She tried various masks with no success. She was scheduled for gallbladder surgery. Review of Systems Constitutional: Positive for fatigue. Negative for appetite change, fever and unexpected weight change. HENT: Negative. Respiratory: Negative for chest tightness, shortness of breath and wheezing. Cardiovascular: Positive for leg swelling. Negative for chest pain and palpitations. Gastrointestinal: Negative. Neurological: Negative. Psychiatric/Behavioral: Negative. ACTIVE PROBLEM LIST Type 2 Diabetes Mellitus With Stage 3a Chronic Kidney Disease, With Long-Term Current Use of Insulin ([facility]) Hypertension Hypothyroidism Moderate Persistent Asthma Without Complication KAM (obstructive sleep apnea) CPAP intolerant Insomnia Rls (Restless Legs Syndrome) Class 3 Severe Obesity With Body Mass Index (Bmi) of 40.0 to 44.9 in Adult ([facility]) Edema Other Hyperlipidemia Stable Angina Pectoris [facility] [facility]) Multiple Gallstones Current Outpatient Medications Medication Sig MULTIVITAMIN ORAL Take by mouth once daily. fenofibrate nanocrystallized (TRICOR) 145 mg tablet Take 1 tablet by mouth once daily. olmesartan (BENICAR) 20 mg tablet Take 1 tablet by mouth once daily. insulin glargine (LANTUS SOLOSTAR U-100 INSULIN) 100 unit/mL (3 mL) Inject 30 Units subcutaneously every morning. dilTIAZem HCl 360 mg 24 hr capsule Take 1 capsule by mouth once daily. glimepiride (AMARYL) 4 mg tablet Take 1 tablet by mouth daily with breakfast. levothyroxine (LEVOXYL) 50 mcg tablet Take 1 tablet by mouth once daily. Take on empty stomach. ForThyroid metFORMIN (GLUCOPHAGE) 500 mg tablet Take 2 tablets by mouth twice daily with meals. traZODone (DESYREL) 150 mg tablet Take 1 tablet by mouth daily at bedtime. ADVAIR DISKUS 250-50 mcg/dose inhaler INHALE 1 PUFF BY MOUTH TWICE A DAY. RINSE & GARGLE MOUTH WITH WATER AFTER EACH USE albuterol HFA (PROVENTIL HFA, VENTOLIN HFA) 90 mcg/actuation inhaler Inhale 2 Puffs as instructed four times daily as needed for Wheezing/Shortness of Breath. FOR WHEEZING AND SHORTNESS OF BREATH. No current facility-administered medications for this visit. Objective BP 128/64 (BP Site: Right Arm, BP Position: Sitting, BP Cuff Size: Large Adult) Pulse 72 Temp 36.2 C (97.1 F) (Temporal) Resp 16 Ht 153.9 cm (5' 0.6) Wt 101.6 kg (224 lb) BMI 42.89 kg/m Physical Exam Constitutional: General: She is not in acute distress. Appearance: She is obese. She is not ill-appearing. HENT: Head: Normocephalic. Eyes: Conjunctiva/sclera: Conjunctivae normal. Cardiovascular: Rate and Rhythm: Normal rate and regular rhythm. Heart sounds: No murmur heard. No gallop. Pulmonary: Effort: No respiratory distress. Breath sounds: Normal breath sounds. No wheezing or rales. Musculoskeletal: Right lower le+ Pitting Edema present. Left lower le+ Pitting Edema present. Neurological: General: No focal deficit present. Gait: Gait normal. Psychiatric: Mood and Affect: Mood normal. Component Latest Ref Rng & Units 03/11/2022 Glucose 74 - 99 mg/dL 67 (L) BUN 7 - 21 mg/dL 19 Creatinine 0.58 - 0.96 mg/dL 0.94 Sodium 136 - 144 mmol/L 140 Potassium 3.7 - 5.1 mmol/L 4.2 Chloride 97 - 105 mmol/L 104 CO2 22 - 30 mmol/L 24 Anion Gap 9 - 18 mmol/L 12 Calcium 8.5 - 10.2 mg/dL 9.8 eGFR >=60 mL/min/1.73m 65 Cholesterol, Total <200 mg/dL 180 Triglyceride <150 mg/dL 83 HDL Cholesterol >39 mg/dL 59 Non HDL Cholesterol <130 mg/dL 121 Fasting Time hrs 12 VLDL Cholesterol <30 mg/dL 17 TC:HDL Ratio <5.10 3.05 LDL Cholesterol <100 mg/dL 104 (H) LDL:HDL Ratio <2.54 1.76 Creatinine, Ur Random (UCRR) 20.0 - 300.0 mg/dL 172.9 Albumin, Urine Random mg/L <12.0 Albumin/Creat Ratio <30 mg/g <7 Hemoglobin A1C 4.3 - 5.6 % 6.8 (H) Estimated Average Glucose mg/dL 148 Assessment and Plan 1. Medicare annual wellness visit, subsequent - ICD9: V70.0, ICD10: Z00.00 (primary diagnosis) See wellness note. 2. Type 2 diabetes mellitus with stage 3a chronic kidney disease, with long-term current use of insulin (HCC) - ICD9: 250.40, 585.3, V58.67, ICD10: E11.22, N18.31, Z79.4 Controlled. - Continue current medications - Encouraged regular aerobic exercise and weight loss - COMP METABOLIC PANEL - HGB A1C 3. Other hyperlipidemia - ICD9: 272.4, ICD10: E78.49 Controlled. - LIPID PANEL BASIC 4. Primary hypertension - ICD9: 401.9, ICD10: I10 - good control - Continue current medication(s) - Goal of BP <130/80 5. Moderate persistent asthma without complication - ICD9: 493.90, ICD10: J45.40 Stable. - Avoidance of triggers recommended 6. KAM (obstructive sleep apnea) - ICD9: 327.23, ICD10: G47.33 CPAP intolerant. This is likely the main factor for chronic fatigue. - CONSULT TO SLEEP MEDICINE - ADULT - CBC 7. Hypothyroidism, unspecified type - ICD9: 244.9, ICD10: E03.9 - continue current dose of Synthroid - TSH BLD Scar Ceballos MD * Scar Ceballos MD - 05/01/2022 10:58 AM EDT Medicare Yearly Visit Medical B eligibilty date 04/01/2016 Date of last exam 04/03/2021 PAST MEDICAL HISTORY Diagnosis Date Hypertension Hypothyroidism Insomnia 03/19/2016 Moderate persistent asthma without complication 07/11/2015 07/07/15 Methacholine Inhalation Challenge: 35% drop FEV1 at 2.5 mg/mL. Morbid obesity (HCC) 04/04/2015 Patient has morbid obesity. KAM (obstructive sleep apnea) 09/26/2015 DME: [facility] Other hyperlipidemia 03/23/2019 RLS (restless legs syndrome) 02/15/2019 Type 2 diabetes mellitus with stage 3 chronic kidney disease, with long-term current use of insulin(HCC) 04/04/2015 Dx: age 51. On metformin and victoza which she does not think works well for her lately She was started on jardiance which made her have suicidal ideation So she stopped the medication. PAST SURGICAL HISTORY Procedure Laterality Date APPENDECTOMY 1957 LAPAROSCOPY DIAGNOSTIC 2000 LEFT HEART CATH,PERCUTANEOUS 07/14/2020 wnl TONSILLECTOMY AND ADENOIDECTOMY HX 1957 TOTAL ABDOMINAL HYSTERECT W/WO RMVL TUBE OVARY 2000 ALLERGIES: Dust, Jardiance [Empagliflozin], Mold, and Victoza [Liraglutide] Medications reviewed: Yes FAMILY HISTORY Adopted: Yes Family history unknown: Yes SOCIAL HISTORY: Social History Tobacco Use Smoking status: Never Smokeless tobacco: Never Tobacco comments: NO smoking in childhood home. Spouse smokes pipe, not around patient. Vaping Use Vaping Use: Never used Substance Use Topics Alcohol use: No Drug use: No Chloe likes to exercise by yard work. She watches her diet for sodium, low fat and low cholesterolmost of the time. List of current specialists seen: Dr. Molly Lovett, nephrology. [facility]. Dr. Rosario, ophthalmology. End of Live Planning discussed including patients advanced directive wishes: None made yet. PHQ-2 / Depression screen She in the past two weeks denies having felt down, depressed, hopeless, or with little interest or pleasure in doing things. PHQ-2 Score: 0 Functional Ability/Safety Screen 1. Was the patient's timed Up and Go test unsteady or longer than 30 seconds? No 2. Does the patient need help with the phone, transportation, shopping,preparing meals, housework, laundry, medications or managing money? No 3. Does your home have rugs in the hallway, lack of grab bars in the bathroom, lack of handrails onthe stairs or have poor lighting? No Hearing Evaluation: normal PHYSICAL EXAM BP 128/64 (BP Site: Right Arm, BP Position: Sitting, BP Cuff Size: Large Adult) Pulse 72 Temp 36.2 C (97.1 F) (Temporal) Resp 16 Ht 153.9 cm (5' 0.6) Wt 101.6 kg (224 lb) BMI 42.89 kg/m Alert and oriented X 3: YES Body mass index is 42.89 kg/m . Visual acuity: OD: 20/40 OS: 20/ 50 OU: 20/30 The Mini Cog(c): Word recall=3/3 + Clock drawing=2/2=5/5. (<3 is positive). ASSESSMENT/PLAN: 72 year old female The following prevention plan was discussed during the office visit and provided to the patient: - Counseled on healthy diet and regular exercise - Discussed need for and benefit of weight loss. BMI 42.88 kg/(m^2) - Vaccines recommended Tdap at pharmacy - Advanced Directive discussion. Scar Ceballos MD [facility]* Diagnosis Medicare annual wellness visit, subsequent- Primary Routine general medical examination at a health care facility Type 2 diabetes mellitus with stage 3a chronic kidney disease, with long-term current use of insulin (HCC) Other hyperlipidemia Primary hypertension Unspecified essential hypertension Moderate persistent asthma without complication Unspecified asthma KAM (obstructive sleep apnea) Obstructive sleep apnea (adult) (pediatric) Hypothyroidism, unspecified type documented in this encounter [facility]08-08[facility] History of Present illness Narrative* Maggy Akers MD - 04/08/2022 6:37 PM EDT HISTORY AND PHYSICAL Chloe Guillory 1950 REFERRING PHYSICIAN: Scar Ceballos MD CHIEF COMPLAINT: Consult (Review CT and US reports from [facility] ER, ?gallbladder problems) HPI: The patient is a 71 year old female presents with abdominal pain. She had presented to [facility] ED with epigastric abdominal pain. She states that she also has bilateral upper abdominal pain with nausea and emesis. She also noted loose bowel movements; she states that they are green in color. She did note that these bowel movements ceased this past week and the abdominal pain has decreased. She denies fevers. She denies jaundice or icterus CT scan 03/12/2022 at [facility] ED - multiple small gallstones US 03/12/2022 at [facility] - fatty infiltration and enlarged liver, gallbladder wall measures 2.8mm, multiple echogenic structures within the gallbladder consistent with multiple gallstones PAST MEDICAL HISTORY Diagnosis Date Hypertension Hypothyroidism Insomnia 03/19/2016 Moderate persistent asthma without complication 07/11/2015 07/07/15 Methacholine Inhalation Challenge: 35% drop FEV1 at 2.5 mg/mL. Morbid obesity (HCC) 04/04/2015 Patient has morbid obesity. KAM (obstructive sleep apnea) 09/26/2015 DME: [facility] Other hyperlipidemia 03/23/2019 RLS (restless legs syndrome) 02/15/2019 Type 2 diabetes mellitus with stage 3 chronic kidney disease, with long-term current use of insulin(HCC) 04/04/2015 Dx: age 51. On metformin and victoza which she does not think works well for her lately She was started on jardiance which made her have suicidal ideation So she stopped the medication. PAST SURGICAL HISTORY Procedure Laterality Date APPENDECTOMY 1957 LAPAROSCOPY DIAGNOSTIC 2000 LEFT HEART CATH,PERCUTANEOUS 07/14/2020 wnl TONSILLECTOMY AND ADENOIDECTOMY HX 1957 TOTAL ABDOMINAL HYSTERECT W/WO RMVL TUBE OVARY 2000 Current Outpatient Medications Medication Sig MULTIVITAMIN ORAL Take by mouth once daily. fenofibrate nanocrystallized (TRICOR) 145 mg tablet Take 1 tablet by mouth once daily. olmesartan (BENICAR) 20 mg tablet Take 1 tablet by mouth once daily. insulin glargine (LANTUS SOLOSTAR U-100 INSULIN) 100 unit/mL (3 mL) Inject 30 Units subcutaneously every morning. dilTIAZem HCl 360 mg 24 hr capsule Take 1 capsule by mouth once daily. glimepiride (AMARYL) 4 mg tablet Take 1 tablet by mouth daily with breakfast. levothyroxine (LEVOXYL) 50 mcg tablet Take 1 tablet by mouth once daily. Take on empty stomach. ForThyroid metFORMIN (GLUCOPHAGE) 500 mg tablet Take 2 tablets by mouth twice daily with meals. traZODone (DESYREL) 150 mg tablet Take 1 tablet by mouth daily at bedtime. ADVAIR DISKUS 250-50 mcg/dose inhaler INHALE 1 PUFF BY MOUTH TWICE A DAY. RINSE & GARGLE MOUTH WITH WATER AFTER EACH USE albuterol HFA (PROVENTIL HFA, VENTOLIN HFA) 90 mcg/actuation inhaler Inhale 2 Puffs as instructed four times daily as needed for Wheezing/Shortness of Breath. FOR WHEEZING AND SHORTNESS OF BREATH. ALLERGIES: Dust, Jardiance [Empagliflozin], Mold, and Victoza [Liraglutide] PERSONAL HISTORY: Social History Tobacco Use Smoking status: Never Smokeless tobacco: Never Tobacco comments: NO smoking in childhood home. Spouse smokes pipe, not around patient. Vaping Use Vaping Use: Never used Substance Use Topics Alcohol use: No Drug use: No FAMILY HISTORY Adopted: Yes Family history unknown: Yes The review of systems data was entered by the nurse and reviewed by ar Nursing Notes: Mariah Bowers RN 04/08/2022 10:59 AM Signed REVIEW OF SYSTEMS: General: The patient NOTES fatigue, denies weight loss, denies weight gain, denies feeling hot, anddenies feelings of cold. Eyes: The patient denies glaucoma, denies eye injury/surgery, wears glasses or contacts. Ear/Nose/Throat: The patient NOTES allergies, denies hayfever, denies ear infections, and denies bloody noses. Cardiovascular: The patient denies chest pain, denies heart disease, denies high blood pressure,denies cardiac stent, denies prior heart attack, denies irregular heart beat, denies high cholesterol, denies poor circulation, denies heart failure, other cardiac issues, denies claudication, denies cold feet, denies peripheral arterial stent. Respiratory: The patient denies tuberculosis, denies pneumonia, denies frequent cough, denies pulmonary embolism, NOTES shortness of breath, and denies coughing up blood. Gastrointestinal: The patient denies difficulty swallowing, NOTES acid reflux, denies ulcers, denies vomiting, denies jaundice/hepatitis, NOTES gallbladder problems, denies black or tarry stools, denies hemorrhoids, denies bleeding from rectum, denies diverticulitis, denies constipation, NOTES diarrhea, denies loss of stool control, and denies hernias. Kidney/Bladder: The patient denies kidney stones, denies urine infections, and denies bloody urine. Skin: The patient denies a history of skin cancer, denies bleeding/changing moles, and denies a history of skin rash. Neurologic: The patient denies a history of epilepsy/convulsions, denies headaches, denies head/spinal injuries, and denies stroke/TIA. Psychiatric: The patient denies psychiatric medications, denies depression, and denies voices, denies substance abuse. Endocrine: The patient NOTES thyroid disorders, NOTES diabetes, and denies hormonal problems. Hematologic: The patient denies a history of bruising, denies bleeding, and denies anemia, denies blood clots. Infections: The patient NOTES a history of measles and mumps, denies rheumatic fever, and denies sexually transmitted diseases. Musculoskeletal: The patient denies back pain/injury, denies back problems, denies sciatica, deniesknee/foot trouble, NOTES arthritis, or denies gout. When was patient's last Mammogram screening? 02/08/2021 Last Colonoscopy: Unknown Mariah Bowers RN PHYSICAL EXAMINATION: General: The patient is 71 year old female, well nourished, well hydrated in no acute distress. Thepatient is oriented to time, place, and person. VITALS: Blood pressure 122/64, pulse 72, temperature 36.4 C (97.6 F), height 154.9 cm (5' 1), weight 101.9 kg (224 lb 9.6 oz), SpO2 98 %. Body mass index is 42.44 kg/m . Head - Normocephalic. EOM intact with sclera clear and no icterus noted. Wearing glasses. Neck - supple with no jugular venous distention noted. Trachea is midline. Lungs - clear to auscultation. Normal breath sounds. No rales/rhonchi/wheezing noted. No labored breathing noted, such as retractions. No cough heard. Heart - normal S1 and S2 auscultated. No rubs/clicks/murmurs noted. Regular rate. Abdomen - soft and benign. Tender in the epigastrium without peritoneal signs. Difficult to determine if any masses or organomegaly due to body habitus. Extremities - no calf tenderness noted. No pitting edema noted. Skin - normal skin integrity. Neurological - gait normal, no focal deficits noted. Psych - calm and appropriate Assessment IMPRESSION: epigastric abdominal pain, cholelithiasis PLAN: I have discussed the above with the patient. I have offered laparoscopic cholecystectomy, possible cholangiograms I have explained the procedure to the patient. I have counseled the patient as to the risks of the procedure, including but not limited to: infection, bleeding, injury to any blood vessels/nerves, scar tissue, injury to any intrabdominal organs, injury to bowel/bladder, injury to the common bile duct/biliary tree, bile leakage, intraabdominal abscess/bleeding, hernias at incisional sites, wound infections, complications of anesthesia, etc. - the patient understands. The patient wishes to proceed. I have answered all questions to the patient s satisfaction and the patient has no further questions. I have confirmed and edited as necessary, the PFSH and ROS obtained by others. Consultation requested by Dr. Scar Ceballos for an opinion regarding patient's cholelithiasis. My final recommendations will be communicated back to the requesting physician by way of shared Medical record or letter to requesting physician via US mail. . Diagnoses: (K80.20) Multiple gallstones Return to Clinic: The patient will be scheduled in the near future. Medical Decision Making: Problems: Low: Acute, uncomplicated illness or injury Risk: High: Decision on elective major surgery w/ risk factors Medical Decision Making Level: 3 - Low Maggy Akers MD documented [facility] Nurse Note* Mariah Bowers RN - 04/08/2022 10:57 AM EDT REVIEW OF SYSTEMS: General: The patient NOTES fatigue, denies weight loss, denies weight gain, denies feeling hot, anddenies feelings of cold. Eyes: The patient denies glaucoma, denies eye injury/surgery, wears glasses or contacts. Ear/Nose/Throat: The patient NOTES allergies, denies hayfever, denies ear infections, and denies bloody noses. Cardiovascular: The patient denies chest pain, denies heart disease, denies high blood pressure,denies cardiac stent, denies prior heart attack, denies irregular heart beat, denies high cholesterol, denies poor circulation, denies heart failure, other cardiac issues, denies claudication, denies cold feet, denies peripheral arterial stent. Respiratory: The patient denies tuberculosis, denies pneumonia, denies frequent cough, denies pulmonary embolism, NOTES shortness of breath, and denies coughing up blood. Gastrointestinal: The patient denies difficulty swallowing, NOTES acid reflux, denies ulcers, denies vomiting, denies jaundice/hepatitis, NOTES gallbladder problems, denies black or tarry stools, denies hemorrhoids, denies bleeding from rectum, denies diverticulitis, denies constipation, NOTES diarrhea, denies loss of stool control, and denies hernias. Kidney/Bladder: The patient denies kidney stones, denies urine infections, and denies bloody urine. Skin: The patient denies a history of skin cancer, denies bleeding/changing moles, and denies a history of skin rash. Neurologic: The patient denies a history of epilepsy/convulsions, denies headaches, denies head/spinal injuries, and denies stroke/TIA. Psychiatric: The patient denies psychiatric medications, denies depression, and denies voices, denies substance abuse. Endocrine: The patient NOTES thyroid disorders, NOTES diabetes, and denies hormonal problems. Hematologic: The patient denies a history of bruising, denies bleeding, and denies anemia, denies blood clots. Infections: The patient NOTES a history of measles and mumps, denies rheumatic fever, and denies sexually transmitted diseases. Musculoskeletal: The patient denies back pain/injury, denies back problems, denies sciatica, deniesknee/foot trouble, NOTES arthritis, or denies gout. When was patient's last Mammogram screening? 02/08/2021 Last Colonoscopy: Unknown Mariah Bowers RN documented [facility] History of Present illness Narrative* Scar Ceballos MD - 03/20/2022 3:22 PM EDT This note was created using NoteWriter. Subjective Chloe Guillory is a 71 year old female. She developed progressively severe upper abdominal pain and vomiting 03/12. She went to the ED where ND was ruled out. Labs were within normal limits. CT scan showed multiple gallstones and fatty liver, likewise demonstrated on ultrasound. Labs were unremarkable. She was treated for biliary colic and symptoms subsided in a few days. Her diabetes mellitus was stable. She did not continue Farxiga due to cost. Review of Systems Constitutional: Negative. Respiratory: Negative. Cardiovascular: Negative. Gastrointestinal: Negative. ACTIVE PROBLEM LIST Type 2 Diabetes Mellitus With Stage 3a Chronic Kidney Disease, With Long-Term Current Use of Insulin (Hcc) Hypertension Hypothyroidism Moderate Persistent Asthma Without Complication Kam (Obstructive Sleep Apnea) Insomnia Rls (Restless Legs Syndrome) Class 3 Severe Obesity With Body Mass Index (Bmi) of 40.0 to 44.9 in Adult (Hcc) Edema Other Hyperlipidemia Stable Angina Pectoris (Hcc) Sob (Shortness of Breath) Current Outpatient Medications Medication Sig fenofibrate nanocrystallized (TRICOR) 145 mg tablet Take 1 tablet by mouth once daily. olmesartan (BENICAR) 20 mg tablet Take 1 tablet by mouth once daily. insulin glargine (LANTUS SOLOSTAR U-100 INSULIN) 100 unit/mL (3 mL) Inject 30 Units subcutaneously every morning. dilTIAZem HCl 360 mg 24 hr capsule Take 1 capsule by mouth once daily. glimepiride (AMARYL) 4 mg tablet Take 1 tablet by mouth daily with breakfast. levothyroxine (LEVOXYL) 50 mcg tablet Take 1 tablet by mouth once daily. Take on empty stomach. ForThyroid metFORMIN (GLUCOPHAGE) 500 mg tablet Take 2 tablets by mouth twice daily with meals. traZODone (DESYREL) 150 mg tablet Take 1 tablet by mouth daily at bedtime. ADVAIR DISKUS 250-50 mcg/dose inhaler INHALE 1 PUFF BY MOUTH TWICE A DAY. RINSE & GARGLE MOUTH WITH WATER AFTER EACH USE albuterol HFA (PROVENTIL HFA, VENTOLIN HFA) 90 mcg/actuation inhaler Inhale 2 Puffs as instructed four times daily as needed for Wheezing/Shortness of Breath. FOR WHEEZING AND SHORTNESS OF BREATH. dapagliflozin (FARXIGA) 5 mg tablet Take 1 tablet by mouth once daily. Take one daily in the morning (Patient not taking: Reported on 03/20/2022 ) fluticasone (FLONASE) 50 mcg/actuation nasal spray Use 1 [place] in each nostril once daily. (Patientnot taking: Reported on 03/20/2022 ) No current facility-administered medications for this visit. Objective BP 126/64 (BP Site: Left Arm, BP Position: Sitting, BP Cuff Size: Large Adult) Pulse 68 Temp 36.2 C (97.1 F) (Temporal Artery) Resp 18 Wt 101.6 kg (224 lb) BMI 42.32 kg/m Physical Exam Constitutional: General: She is not in acute distress. Appearance: She is not ill-appearing. Cardiovascular: Rate and Rhythm: Normal rate and regular rhythm. Heart sounds: No murmur heard. No gallop. Pulmonary: Effort: Pulmonary effort is normal. Breath sounds: Normal breath sounds. Chest: Chest wall: No tenderness. Abdominal: General: Bowel sounds are normal. Palpations: Abdomen is soft. There is no mass. Tenderness: There is no abdominal tenderness. Neurological: Mental Status: She is alert. Assessment and Plan 1. Multiple gallstones - ICD9: 574.20, ICD10: K80.20 (primary diagnosis) - CONSULT TO GENERAL SURGERY 2. Type 2 diabetes mellitus with stage 3a chronic kidney disease, with long-term current use of insulin (HCC) - ICD9: 250.40, 585.3, V58.67, ICD10: E11.22, N18.31, Z79.4 Controlled. - Continue current medications 3. Primary hypertension - ICD9: 401.9, ICD10: I10 - good control - Continue current medication(s) Scar Ceballos MD documented in [facility]Bar[facility] History of Past illness Narrative* Problem Noted Date Diagnosed Date Resolved Date Multiple gallstones 03/20/2022 04/01/20 Overview: Resolved with lap choly 05/07/2022 SOB (shortness of breath) 07/14/2020 Kidney disease 03/23/2019 07/06/2019 Morbid obesity 04/04/2015 03/23/2019 Overview: Patient has morbid obesity. Last Assessment & Plan: Most of her life she was a 100 pounds and athletic, since the past 10 years she got really worse. Patient has morbid obesity. She would benefit from the gastric bypass. documented as of this encounter (statuses as of 04/01/2023) [facility] of Past illness Narrative* Problem Noted Date Diagnosed Date Resolved Date Multiple gallstones 03/20/2022 04/01/20 Overview: Resolved with lap choly 05/07/2022 SOB (shortness of breath) 07/14/2020 Kidney disease 03/23/2019 07/06/2019 Morbid obesity 04/04/2015 03/23/2019 Overview: Patient has morbid obesity. Last Assessment & Plan: Most of her life she was a 100 pounds and athletic, since the past 10 years she got really worse. Patient has morbid obesity. She would benefit from the gastric bypass. documented as of this encounter (statuses as of 04/02/2023) [facility] of Past illness Narrative* Problem Noted Date Diagnosed Date Resolved Date Multiple gallstones 03/20/2022 04/01/20 Overview: Resolved with lap choly 05/07/2022 SOB (shortness of breath) 07/14/2020 Kidney disease 03/23/2019 07/06/2019 Morbid obesity 04/04/2015 03/23/2019 Overview: Patient has morbid obesity. Last Assessment & Plan: Most of her life she was a 100 pounds and athletic, since the past 10 years she got really worse. Patient has morbid obesity. She would benefit from the gastric bypass. documented as of this encounter (statuses as of 04/02/2023) [facility] Past illness Narrative* Problem Noted Date Diagnosed Date Resolved Date Multiple gallstones 03/20/2022 04/01/20 Overview: Resolved with lap choly 05/07/2022 SOB (shortness of breath) 07/14/2020 Kidney disease 03/23/2019 07/06/2019 Morbid obesity 04/04/2015 03/23/2019 Overview: Patient has morbid obesity. Last Assessment & Plan: Most of her life she was a 100 pounds and athletic, since the past 10 years she got really worse. Patient has morbid obesity. She would benefit from the gastric bypass. documented as of this encounter (statuses as of 04/02/2023) [facility]-20-2022 History of Past illness Narrative* Problem Noted Date Diagnosed Date Resolved Date Multiple gallstones 03/20/2022 04/01/20 Overview: Resolved with lap choly 05/07/2022 SOB (shortness of breath) 07/14/2020 Kidney disease 03/23/2019 07/06/2019 Morbid obesity 04/04/2015 03/23/2019 Overview: Patient has morbid obesity. Last Assessment & Plan: Most of her life she was a 100 pounds and athletic, since the past 10 years she got really worse. Patient has morbid obesity. She would benefit from the gastric bypass. documented as of this encounter (statuses as of 04/02/2023) [facility]22 History of Past illness Narrative* Problem Noted Date Diagnosed Date Resolved Date Multiple gallstones 03/20/2022 04/01/20 Overview: Resolved with lap choly 05/07/2022 SOB (shortness of breath) 07/14/2020 Kidney disease 03/23/2019 07/06/2019 Morbid obesity 04/04/2015 03/23/2019 Overview: Patient has morbid obesity. Last Assessment & Plan: Most of her life she was a 100 pounds and athletic, since the past 10 years she got really worse. Patient has morbid obesity. She would benefit from the gastric bypass. documented as of this encounter (statuses as of 04/03/2023) [facility] History of Past illness Narrative* Problem Noted Date Diagnosed Date Resolved Date Multiple gallstones 03/20/2022 04/01/20 Overview: Resolved with lap choly 05/07/2022 SOB (shortness of breath) 07/14/2020 Kidney disease 03/23/2019 07/06/2019 Morbid obesity 04/04/2015 03/23/2019 Overview: Patient has morbid obesity. Last Assessment & Plan: Most of her life she was a 100 pounds and athletic, since the past 10 years she got really worse. Patient has morbid obesity. She would benefit from the gastric bypass. documented as of this encounter (statuses as of 04/18/2023) [facility] History of Past illness Narrative* Problem Noted Date Diagnosed Date Resolved Date Multiple gallstones 03/20/2022 04/01/20 Overview: Resolved with lap choly 05/07/2022 SOB (shortness of breath) 07/14/2020 Kidney disease 03/23/2019 07/06/2019 Morbid obesity 04/04/2015 03/23/2019 Overview: Patient has morbid obesity. Last Assessment & Plan: Most of her life she was a 100 pounds and athletic, since the past 10 years she got really worse. Patient has morbid obesity. She would benefit from the gastric bypass. documented as of this encounter (statuses as of 04/22/2023) [facility] History of Past illness Narrative* Problem Noted Date Diagnosed Date Resolved Date Multiple gallstones 03/20/2022 04/01/20 Overview: Resolved with lap choly 05/07/2022 SOB (shortness of breath) 07/14/2020 Kidney disease 03/23/2019 07/06/2019 Morbid obesity 04/04/2015 03/23/2019 Overview: Patient has morbid obesity. Last Assessment & Plan: Most of her life she was a 100 pounds and athletic, since the past 10 years she got really worse. Patient has morbid obesity. She would benefit from the gastric bypass. documented as of this encounter (statuses as of 04/30/2023) [facility] History of Past illness Narrative* Problem Noted Date Diagnosed Date Resolved Date Multiple gallstones 03/20/2022 04/01/20 Overview: Resolved with lap choly 05/07/2022 SOB (shortness of breath) 07/14/2020 Kidney disease 03/23/2019 07/06/2019 Morbid obesity 04/04/2015 03/23/2019 Overview: Patient has morbid obesity. Last Assessment & Plan: Most of her life she was a 100 pounds and athletic, since the past 10 years she got really worse. Patient has morbid obesity. She would benefit from the gastric bypass. documented as of this encounter (statuses as of 06/24/2023) [facility] History of Past illness Narrative* Problem Noted Date Diagnosed Date Resolved Date Multiple gallstones 03/20/2022 04/01/20 Overview: Resolved with lap choly 05/07/2022 SOB (shortness of breath) 07/14/2020 Kidney disease 03/23/2019 07/06/2019 Morbid obesity 04/04/2015 03/23/2019 Overview: Patient has morbid obesity. Last Assessment & Plan: Most of her life she was a 100 pounds and athletic, since the past 10 years she got really worse. Patient has morbid obesity. She would benefit from the gastric bypass. documented as of this encounter (statuses as of 06/24/2023) [facility] History of Past illness Narrative* Problem Noted Date Diagnosed Date Resolved Date Multiple gallstones 03/20/2022 04/01/20 Overview: Resolved with lap choly 05/07/2022 SOB (shortness of breath) 07/14/2020 Kidney disease 03/23/2019 07/06/2019 Morbid obesity 04/04/2015 03/23/2019 Overview: Patient has morbid obesity. Last Assessment & Plan: Most of her life she was a 100 pounds and athletic, since the past 10 years she got really worse. Patient has morbid obesity. She would benefit from the gastric bypass. documented as of this encounter (statuses as of 06/27/2023) [facility] History of Past illness Narrative* Problem Noted Date Diagnosed Date Resolved Date Multiple gallstones 03/20/2022 04/01/20 Overview: Resolved with lap choly 05/07/2022 SOB (shortness of breath) 07/14/2020 Kidney disease 03/23/2019 07/06/2019 Morbid obesity 04/04/2015 03/23/2019 Overview: Patient has morbid obesity. Last Assessment & Plan: Most of her life she was a 100 pounds and athletic, since the past 10 years she got really worse. Patient has morbid obesity. She would benefit from the gastric bypass. documented as of this encounter (statuses as of 07/06/2023) [facility] History of Past illness Narrative* Problem Noted Date Diagnosed Date Resolved Date Multiple gallstones 03/20/2022 04/01/20 Overview: Resolved with lap choly 05/07/2022 SOB (shortness of breath) 07/14/2020 Kidney disease 03/23/2019 07/06/2019 Morbid obesity 04/04/2015 03/23/2019 Overview: Patient has morbid obesity. Last Assessment & Plan: Most of her life she was a 100 pounds and athletic, since the past 10 years she got really worse. Patient has morbid obesity. She would benefit from the gastric bypass. documented as of this encounter (statuses as of 07/06/2023) [facility] History of Past illness Narrative* Problem Noted Date Diagnosed Date Resolved Date Multiple gallstones 03/20/2022 04/01/20 Overview: Resolved with lap choly 05/07/2022 SOB (shortness of breath) 07/14/2020 Kidney disease 03/23/2019 07/06/2019 Morbid obesity 04/04/2015 03/23/2019 Overview: Patient has morbid obesity. Last Assessment & Plan: Most of her life she was a 100 pounds and athletic, since the past 10 years she got really worse. Patient has morbid obesity. She would benefit from the gastric bypass. documented as of this encounter (statuses as of 07/06/2023) [facility] History of Past illness Narrative* Problem Noted Date Diagnosed Date Resolved Date Multiple gallstones 03/20/2022 04/01/20 Overview: Resolved with lap choly 05/07/2022 SOB (shortness of breath) 07/14/2020 Kidney disease 03/23/2019 07/06/2019 Morbid obesity 04/04/2015 03/23/2019 Overview: Patient has morbid obesity. Last Assessment & Plan: Most of her life she was a 100 pounds and athletic, since the past 10 years she got really worse. Patient has morbid obesity. She would benefit from the gastric bypass. documented as of this encounter (statuses as of 07/06/2023) [facility] History of Past illness Narrative* Problem Noted Date Diagnosed Date Resolved Date Multiple gallstones 03/20/2022 04/01/20 Overview: Resolved with lap choly 05/07/2022 SOB (shortness of breath) 07/14/2020 Kidney disease 03/23/2019 07/06/2019 Morbid obesity 04/04/2015 03/23/2019 Overview: Patient has morbid obesity. Last Assessment & Plan: Most of her life she was a 100 pounds and athletic, since the past 10 years she got really worse. Patient has morbid obesity. She would benefit from the gastric bypass. documented as of this encounter (statuses as of 07/06/2023) [facility] History of Past illness Narrative* Problem Noted Date Diagnosed Date Resolved Date Multiple gallstones 03/20/2022 04/01/20 Overview: Resolved with lap choly 05/07/2022 SOB (shortness of breath) 07/14/2020 Kidney disease 03/23/2019 07/06/2019 Morbid obesity 04/04/2015 03/23/2019 Overview: Patient has morbid obesity. Last Assessment & Plan: Most of her life she was a 100 pounds and athletic, since the past 10 years she got really worse. Patient has morbid obesity. She would benefit from the gastric bypass. documented as of this encounter (statuses as of 07/07/2023) [facility] History of Past illness Narrative* Problem Noted Date Diagnosed Date Resolved Date Multiple gallstones 03/20/2022 04/01/20 Overview: Resolved with lap choly 05/07/2022 SOB (shortness of breath) 07/14/2020 Kidney disease 03/23/2019 07/06/2019 Morbid obesity 04/04/2015 03/23/2019 Overview: Patient has morbid obesity. Last Assessment & Plan: Most of her life she was a 100 pounds and athletic, since the past 10 years she got really worse. Patient has morbid obesity. She would benefit from the gastric bypass. documented as of this encounter (statuses as of 07/08/2023) [facility] History of Past illness Narrative* Problem Noted Date Diagnosed Date Resolved Date Multiple gallstones 03/20/2022 04/01/20 Overview: Resolved with lap choly 05/07/2022 SOB (shortness of breath) 07/14/2020 Kidney disease 03/23/2019 07/06/2019 Morbid obesity 04/04/2015 03/23/2019 Overview: Patient has morbid obesity. Last Assessment & Plan: Most of her life she was a 100 pounds and athletic, since the past 10 years she got really worse. Patient has morbid obesity. She would benefit from the gastric bypass. documented as of this encounter (statuses as of 07/09/2023) [facility] History of Past illness Narrative* Problem Noted Date Diagnosed Date Resolved Date Multiple gallstones 03/20/2022 04/01/20 Overview: Resolved with lap choly 05/07/2022 SOB (shortness of breath) 07/14/2020 Kidney disease 03/23/2019 07/06/2019 Morbid obesity 04/04/2015 03/23/2019 Overview: Patient has morbid obesity. Last Assessment & Plan: Most of her life she was a 100 pounds and athletic, since the past 10 years she got really worse. Patient has morbid obesity. She would benefit from the gastric bypass. documented as of this encounter (statuses as of 07/09/2023) [facility] History of Past illness Narrative* Problem Noted Date Diagnosed Date Resolved Date Multiple gallstones 03/20/2022 04/01/20 Overview: Resolved with lap choly 05/07/2022 SOB (shortness of breath) 07/14/2020 Kidney disease 03/23/2019 07/06/2019 Morbid obesity 04/04/2015 03/23/2019 Overview: Patient has morbid obesity. Last Assessment & Plan: Most of her life she was a 100 pounds and athletic, since the past 10 years she got really worse. Patient has morbid obesity. She would benefit from the gastric bypass. documented as of this encounter (statuses as of 07/09/2023) [facility] History of Past illness Narrative* Problem Noted Date Diagnosed Date Resolved Date Multiple gallstones 03/20/2022 04/01/20 Overview: Resolved with lap choly 05/07/2022 SOB (shortness of breath) 07/14/2020 Kidney disease 03/23/2019 07/06/2019 Morbid obesity 04/04/2015 03/23/2019 Overview: Patient has morbid obesity. Last Assessment & Plan: Most of her life she was a 100 pounds and athletic, since the past 10 years she got really worse. Patient has morbid obesity. She would benefit from the gastric bypass. documented as of this encounter (statuses as of 07/22/2023) [facility] History of Past illness Narrative* Problem Noted Date Diagnosed Date Resolved Date Multiple gallstones 03/20/2022 04/01/20 Overview: Resolved with lap choly 05/07/2022 SOB (shortness of breath) 07/14/2020 Kidney disease 03/23/2019 07/06/2019 Morbid obesity 04/04/2015 03/23/2019 Overview: Patient has morbid obesity. Last Assessment & Plan: Most of her life she was a 100 pounds and athletic, since the past 10 years she got really worse. Patient has morbid obesity. She would benefit from the gastric bypass. documented as of this encounter (statuses as of 07/25/2023) [facility] History of Past illness Narrative* Problem Noted Date Diagnosed Date Resolved Date Multiple gallstones 03/20/2022 04/01/20 Overview: Resolved with lap choly 05/07/2022 SOB (shortness of breath) 07/14/2020 Kidney disease 03/23/2019 07/06/2019 Morbid obesity 04/04/2015 03/23/2019 Overview: Patient has morbid obesity. Last Assessment & Plan: Most of her life she was a 100 pounds and athletic, since the past 10 years she got really worse. Patient has morbid obesity. She would benefit from the gastric bypass. documented as of this encounter (statuses as of 07/28/2023) [facility] History of Past illness Narrative* Problem Noted Date Diagnosed Date Resolved Date Multiple gallstones 03/20/2022 04/01/20 Overview: Resolved with lap choly 05/07/2022 SOB (shortness of breath) 07/14/2020 Kidney disease 03/23/2019 07/06/2019 Morbid obesity 04/04/2015 03/23/2019 Overview: Patient has morbid obesity. Last Assessment & Plan: Most of her life she was a 100 pounds and athletic, since the past 10 years she got really worse. Patient has morbid obesity. She would benefit from the gastric bypass. documented as of this encounter (statuses as of 10/15/2023) [address]20-2022 History of Past illness Narrative* Problem Noted Date Diagnosed Date Resolved Date Multiple gallstones 03/20/2022 04/01/20 Overview: Resolved with lap choly 05/07/2022 SOB (shortness of breath) 07/14/2020 Kidney disease 03/23/2019 07/06/2019 Morbid obesity 04/04/2015 03/23/2019 Overview: Patient has morbid obesity. Last Assessment & Plan: Most of her life she was a 100 pounds and athletic, since the past 10 years she got really worse. Patient has morbid obesity. She would benefit from the gastric bypass. documented as of this encounter (statuses as of 10/15/2023) [facility] History of Past illness Narrative* Problem Noted Date Diagnosed Date Resolved Date Multiple gallstones 03/20/2022 04/01/20 Overview: Resolved with lap choly 05/07/2022 SOB (shortness of breath) 07/14/2020 Kidney disease 03/23/2019 07/06/2019 Morbid obesity 04/04/2015 03/23/2019 Overview: Patient has morbid obesity. Last Assessment & Plan: Most of her life she was a 100 pounds and athletic, since the past 10 years she got really worse. Patient has morbid obesity. She would benefit from the gastric bypass. documented as of this encounter (statuses as of 11/03/2023) [facility] History of Past illness Narrative* Problem Noted Date Diagnosed Date Resolved Date Multiple gallstones 03/20/2022 04/01/20 Overview: Resolved with lap choly 05/07/2022 SOB (shortness of breath) 07/14/2020 Kidney disease 03/23/2019 07/06/2019 Morbid obesity 04/04/2015 03/23/2019 Overview: Patient has morbid obesity. Last Assessment & Plan: Most of her life she was a 100 pounds and athletic, since the past 10 years she got really worse. Patient has morbid obesity. She would benefit from the gastric bypass. documented as of this encounter (statuses as of 11/04/2023) [facility] History of Past illness Narrative* Problem Noted Date Diagnosed Date Resolved Date Multiple gallstones 03/20/2022 04/01/20 Overview: Resolved with lap choly 05/07/2022 SOB (shortness of breath) 07/14/2020 Kidney disease 03/23/2019 07/06/2019 Morbid obesity 04/04/2015 03/23/2019 Overview: Patient has morbid obesity. Last Assessment & Plan: Most of her life she was a 100 pounds and athletic, since the past 10 years she got really worse. Patient has morbid obesity. She would benefit from the gastric bypass. documented as of this encounter (statuses as of 11/07/2023) [facility] History of Past illness Narrative* Problem Noted Date Diagnosed Date Resolved Date Multiple gallstones 03/20/2022 04/01/20 Overview: Resolved with lap choly 05/07/2022 SOB (shortness of breath) 07/14/2020 Kidney disease 03/23/2019 07/06/2019 Morbid obesity 04/04/2015 03/23/2019 Overview: Patient has morbid obesity. Last Assessment & Plan: Most of her life she was a 100 pounds and athletic, since the past 10 years she got really worse. Patient has morbid obesity. She would benefit from the gastric bypass. documented as of this encounter (statuses as of 12/02/2023) [facility] History of Past illness Narrative* Problem Noted Date Diagnosed Date Resolved Date Multiple gallstones 03/20/2022 04/01/20 Overview: Resolved with lap choly 05/07/2022 SOB (shortness of breath) 07/14/2020 Kidney disease 03/23/2019 07/06/2019 Morbid obesity 04/04/2015 03/23/2019 Overview: Patient has morbid obesity. Last Assessment & Plan: Most of her life she was a 100 pounds and athletic, since the past 10 years she got really worse. Patient has morbid obesity. She would benefit from the gastric bypass. documented as of this encounter (statuses as of 12/10/2023) [facility] History of Past illness Narrative* Problem Noted Date Diagnosed Date Resolved Date Multiple gallstones 03/20/2022 04/01/20 Overview: Resolved with lap choly 05/07/2022 SOB (shortness of breath) 07/14/2020 Kidney disease 03/23/2019 07/06/2019 Morbid obesity 04/04/2015 03/23/2019 Overview: Patient has morbid obesity. Last Assessment & Plan: Most of her life she was a 100 pounds and athletic, since the past 10 years she got really worse. Patient has morbid obesity. She would benefit from the gastric bypass. documented as of this encounter (statuses as of 12/10/2023) [facility] History of Past illness Narrative* Problem Noted Date Diagnosed Date Resolved Date Multiple gallstones 03/20/2022 04/01/20 Overview: Resolved with lap choly 05/07/2022 SOB (shortness of breath) 07/14/2020 Kidney disease 03/23/2019 07/06/2019 Morbid obesity 04/04/2015 03/23/2019 Overview: Patient has morbid obesity. Last Assessment & Plan: Most of her life she was a 100 pounds and athletic, since the past 10 years she got really worse. Patient has morbid obesity. She would benefit from the gastric bypass. documented as of this encounter (statuses as of 12/11/2023) [facility] History of Past illness Narrative* Problem Noted Date Diagnosed Date Resolved Date Multiple gallstones 03/20/2022 04/01/20 Overview: Resolved with lap choly 05/07/2022 SOB (shortness of breath) 07/14/2020 Kidney disease 03/23/2019 07/06/2019 Morbid obesity 04/04/2015 03/23/2019 Overview: Patient has morbid obesity. Last Assessment & Plan: Most of her life she was a 100 pounds and athletic, since the past 10 years she got really worse. Patient has morbid obesity. She would benefit from the gastric bypass. documented as of this encounter (statuses as of 12/19/2023) [facility]20-2022 Evaluation note* Diagnosis Multiple gallstones- Primary Type 2 diabetes mellitus with stage 3a chronic kidney disease, with long-term current use of insulin (HCC) Primary hypertension Unspecified essential hypertension documented in this encounter [facility]07[facility]11-2022 History of Present illness Narrative* Scar Ceballos MD - 03/11/2022 12:44 PM EDT This note was created using [employer]. Subjective Chloe Guillory is a 71 year old female. She had untreated obstructive sleep apnea. She was interested in Inspire. Diabetes needed updating but she was interested in starting Farxiga based on TV ads. Review of Systems Constitutional: Negative. Respiratory: Negative. Cardiovascular: Negative. Gastrointestinal: Negative. Genitourinary: Negative. ACTIVE PROBLEM LIST Type 2 Diabetes Mellitus With Stage 3a Chronic Kidney Disease, With Long-Term Current Use of Insulin (Hcc) Hypertension Hypothyroidism Moderate Persistent Asthma Without Complication Kam (Obstructive Sleep Apnea) Insomnia Rls (Restless Legs Syndrome) Class 3 Severe Obesity With Body Mass Index (Bmi) of 40.0 to 44.9 in Adult (Hcc) Edema Other Hyperlipidemia Stable Angina Pectoris (Hcc) Sob (Shortness of Breath) Current Outpatient Medications Medication Sig insulin glargine (LANTUS SOLOSTAR U-100 INSULIN) 100 unit/mL (3 mL) Inject 30 Units subcutaneously every morning. dilTIAZem HCl 360 mg 24 hr capsule Take 1 capsule by mouth once daily. glimepiride (AMARYL) 4 mg tablet Take 1 tablet by mouth daily with breakfast. levothyroxine (LEVOXYL) 50 mcg tablet Take 1 tablet by mouth once daily. Take on empty stomach. ForThyroid metFORMIN (GLUCOPHAGE) 500 mg tablet Take 2 tablets by mouth twice daily with meals. traZODone (DESYREL) 150 mg tablet Take 1 tablet by mouth daily at bedtime. ADVAIR DISKUS 250-50 mcg/dose inhaler INHALE 1 PUFF BY MOUTH TWICE A DAY. RINSE & GARGLE MOUTH WITH WATER AFTER EACH USE fenofibrate nanocrystallized (TRICOR) 145 mg tablet Take 1 tablet by mouth once daily. olmesartan (BENICAR) 20 mg tablet Take 1 tablet by mouth once daily. fluticasone (FLONASE) 50 mcg/actuation nasal spray Use 1 [place] in each nostril once daily. albuterol HFA (PROVENTIL HFA, VENTOLIN HFA) 90 mcg/actuation inhaler Inhale 2 Puffs as instructed four times daily as needed for Wheezing/Shortness of Breath. FOR WHEEZING AND SHORTNESS OF BREATH. No current facility-administered medications for this visit. Objective BP 136/64 (BP Site: Left Arm, BP Position: Sitting, BP Cuff Size: Large Adult) Pulse 64 Temp 36.3 C (97.4 F) (Temporal Artery) Resp 16 Wt 102.5 kg (226 lb) BMI 42.70 kg/m Physical Exam Constitutional: Appearance: She is not ill-appearing. Cardiovascular: Rate and Rhythm: Normal rate and regular rhythm. Pulmonary: Effort: Pulmonary effort is normal. Breath sounds: Normal breath sounds. Musculoskeletal: Right lower leg: No edema. Left lower leg: No edema. Neurological: Mental Status: She is alert. Feet:Shoes and socks removed, No deformities, ulcers, calluses, normal distal pulses and sensitive to 10 gm monofilament Assessment and Plan 1. Type 2 diabetes mellitus with stage 3a chronic kidney disease, with long-term current use of insulin (HCC) - ICD9: 250.40, 585.3, V58.67, ICD10: E11.22, N18.31, Z79.4 (primary diagnosis) Controlled. Shared Medical Decision Making was done: Medication: Farxiga. Benefits: Medication may help DM, CV,and CKD in the snf. Risks: Possible side effects were discussed. Possible interactions: otherDM medications. Warnings: gangrene.. Approved use: yes. Options: other novel therapies. Cost: high.Prior approval may be needed. Duration: snf. - BASIC METABOLIC PNL - HGB A1C - DAPAGLIFLOZIN 5 MG TABLET - BASIC METABOLIC PNL - ALBUMIN/CREAT RATIO RND UR - LIPID PANEL BASIC 2. Other hyperlipidemia - ICD9: 272.4, ICD10: E78.49 Recheck. - FENOFIBRATE NANOCRYSTALLIZED 145 MG TABLET 3. Essential hypertension - ICD9: 401.9, ICD10: I10 - suboptimal control - Continue current medication(s) - Reviewed risks of HTN and principles of treatment - Goal of BP <130/80 - OLMESARTAN 20 MG TABLET 4. Stable angina pectoris (HCC) - ICD9: 413.9, ICD10: I20.8 Controlled. 5. KAM (obstructive sleep apnea) - ICD9: 327.23, ICD10: G47.33 I'll look into ENT referral for Inspire procedure. 6. Primary hypertension - ICD9: 401.9, ICD10: I10 See above. 7. Screening mammogram for breast cancer - ICD9: V76.12, ICD10: Z12.31 - [facility] Scar Ceballos [facility]* Diagnosis Type 2 diabetes mellitus with stage 3a chronic kidney disease, with long-term current use of insulin (HCC)- Primary Other hyperlipidemia Stable angina pectoris (HCC) KAM (obstructive sleep apnea) Obstructive sleep apnea (adult) (pediatric) Primary hypertension Unspecified essential hypertension Screening mammogram for breast cancer documented in this encounter [facility]06-06-2022 History of Present illness Narrative* Zuri Rosario OD - 02/04/2022 3:01 PM EDT 1. Controlled type 2 diabetes mellitus without complication, with long-term current use of insulin (HCC) Risk of diabetic changes and vision loss can be minimized by tight control of blood sugar, blood pressure, and cholesterol levels. Educated patient to continue care with primary care doctor and/or sheet folder to maintain optimum levels as they are important to avoid ocular complications. Encouraged patient to call the office immediately with any changes to vision or visual concerns. Advised to not wait until the next scheduled exam. 2. Combined forms of age-related cataract of both eyes Slightly worse Continue to observe 3. Presbyopia Finalized new spec rx with hyperopic shift Follow-up in 1 year or sooner as needed Zuri Rosario, OD February 04, 2022 3:01 PM documented [facility] Miscellaneous Notes* Telephone Encounter - Chloe Hi LPN - 12/19/2021 9:21 AM EDT Called pt to review. This change took place last year too for coverage. She is fine taking the lantus again. Please send new rx for formulary lantus. * Telephone Encounter - Chloe Hi LPN - 12/18/2021 4:52 PM EDT Images from the original note were not included. * Telephone Encounter - Chloe Hi LPN - 12/18/2021 4:50 PM EDT Electronic PA requested to see what is covered. * Telephone Encounter - Taya Jimenez - 12/18/2021 10:51 AM EDT Patient stated her insurance will no longer cover insulin glargine (BASAGLAR KWIKPEN U-100 INSULIN)100 unit/mL (3 mL). She is not sure what might be covered on her plan. Please review and advise her what is prescribed. She only has 2 pens left and needs a refill. [facility] Miscellaneous Notes* Telephone Encounter - Rossana Perez - 11/26/2021 2:12 PM EDT Patient given results and verbalized understanding of instructions given. Rossana Perez * Telephone Encounter - Rossana Perez - 11/26/2021 2:11 PM EDT ----- Message from Balwinder Domingo MD sent at 11/26/2021 8:52 AM EDT ----- Shoulder x-ray showed mild arthritis; there were no fractures or dislocation. [facility]Bar[facility] History of Present illness Narrative* Shahriar Orozco RT(R) - 11/26/2021 8:10 AM EDT Radiology Service Progress Note PATIENT NAME: Chloe Guillory DATE OF SERVICE: November 26, 2021 TIME: 8:07 AM PATIENT IDENTITY VERIFICATION COMPLETED USING TWO (2) IDENTIFIERS: Name and Date of confirmedby patient verbally. FALL SCREENING: Has the patient had 2 falls in the last year or 1 fall with injury or currently using an Ambulatory Assistive Device (Walker, Cane, Wheelchair, Crutches, etc.)? No PATIENT GENDER DATA: Female. status: : No status: NO. PATIENT RELEVANT IMPLANT DATA REVIEWED: Not Applicable RADIOLOGY DEPARTMENT: General X-ray: Exam(s) Completed: Upper Extremity X- Ray(s): Shoulder, AP / TRUE AP right PERIPHERAL IV DATA: Not applicable SIGNED BY: RT Bishop(R) November 26, 2021 8:07 AM documented in this encounterBar[facility]03[facility] History of Present illness Narrative* Jana Erwin APRN.GLASS CALIBRATOR - 11/24/2021 2:54 PM EDT Images from the original note were not included. Subjective HPI Chloe Guillory is a 71 year old female who presents with right shoulder pain. This has been bothering her for the past month and gradually getting worse. Since yesterday it hurts so much she cannot lift her right arm due to pain. Denies trauma or weakness in the arm or shoulder. She has not taken anything for pain. She has stage 3 kidney disease and avoids medication as much as possible. Review of Systems Constitutional: Negative for chills and fever. Respiratory: Negative. Cardiovascular: Negative. Musculoskeletal: Positive for joint pain. Negative for falls. Skin: Negative for itching and rash. BP 130/78 Pulse 92 Temp 36.6 C (97.8 F) (Temporal) Resp 18 Wt 104.8 kg (231 lb) SpO2 99% BMI 43.65 kg/m PAST MEDICAL HISTORY Diagnosis Date Hypertension Hypothyroidism Insomnia 03/19/2016 Moderate persistent asthma without complication 07/11/2015 07/07/15 Methacholine Inhalation Challenge: 35% drop FEV1 at 2.5 mg/mL. Morbid obesity (HCC) 04/04/2015 Patient has morbid obesity. KAM (obstructive sleep apnea) 09/26/2015 DME: [facility] Other hyperlipidemia 03/23/2019 RLS (restless legs syndrome) 02/15/2019 Type 2 diabetes mellitus with stage 3 chronic kidney disease, with long-term current use of insulin(HCC) 04/04/2015 Dx: age 51. On metformin and victoza which she does not think works well for her lately She was started on jardiance which made her have suicidal ideation So she stopped the medication. PAST SURGICAL HISTORY Procedure Laterality Date APPENDECTOMY 1957 LAPAROSCOPY DIAGNOSTIC 2000 LEFT HEART CATH,PERCUTANEOUS 07/14/2020 wnl TONSILLECTOMY AND ADENOIDECTOMY HX 1957 TOTAL ABDOMINAL HYSTERECT W/WO RMVL TUBE OVARY 2000 ALLERGIES Dust, Jardiance [Empagliflozin], Mold, and Victoza [Liraglutide] MEDICATIONS dilTIAZem HCl 360 mg 24 hr capsule Take 1 capsule by mouth once daily. glimepiride (AMARYL) 4 mg tablet Take 1 tablet by mouth daily with breakfast. levothyroxine (LEVOXYL) 50 mcg tablet Take 1 tablet by mouth once daily. Take on empty stomach. ForThyroid metFORMIN (GLUCOPHAGE) 500 mg tablet Take 2 tablets by mouth twice daily with meals. traZODone (DESYREL) 150 mg tablet Take 1 tablet by mouth daily at bedtime. insulin glargine (BASAGLAR KWIKPEN U-100 INSULIN) 100 unit/mL (3 mL) Inject 30 Units subcutaneouslydaily at bedtime. ADVAIR DISKUS 250-50 mcg/dose inhaler INHALE 1 PUFF BY MOUTH TWICE A DAY. RINSE & GARGLE MOUTH WITH WATER AFTER EACH USE fenofibrate nanocrystallized (TRICOR) 145 mg tablet Take 1 tablet by mouth once daily. olmesartan (BENICAR) 20 mg tablet Take 1 tablet by mouth once daily. fluticasone (FLONASE) 50 mcg/actuation nasal spray Use 1 [place] in each nostril once daily. albuterol HFA (PROVENTIL HFA, VENTOLIN HFA) 90 mcg/actuation inhaler Inhale 2 Puffs as instructed four times daily as needed for Wheezing/Shortness of Breath. FOR WHEEZING AND SHORTNESS OF BREATH. predniSONE (DELTASONE) 20 mg tablet Take 2 tablets by mouth once daily for 4 days. Take daily with food. FAMILY HISTORY Adopted: Yes Family history unknown: Yes Social History Tobacco Use Smoking status: Never Smoker Smokeless tobacco: Never Used Tobacco comment: NO smoking in childhood home. Spouse smokes pipe, not around patient. Substance Use Topics Alcohol use: No Drug use: No Objective Physical Exam Vitals and nursing note reviewed. Constitutional: Appearance: She is obese. Cardiovascular: Rate and Rhythm: Normal rate. Pulmonary: Effort: Pulmonary effort is normal. Musculoskeletal: Right shoulder: Tenderness present. No swelling, deformity, effusion, laceration, bony tenderness or crepitus. Decreased range of motion. Normal strength. Normal pulse. Arms: Skin: General: Skin is warm and dry. Capillary Refill: Capillary refill takes less than 2 seconds. Findings: No erythema or rash. Neurological: Mental Status: She is alert. ASSESSMENT/PLAN: 1. Bursitis of right shoulder - ICD9: 726.10, ICD10: M75.51 (primary diagnosis) - PREDNISONE 20 MG TABLET - may also use lidocaine patches (over the counter) - wear sling -rest shoulder and apply ice two-3 times daily. 2. Acute pain of right shoulder - ICD9: 719.41, ICD10: M25.511 - XR SHOULDER [id number] AP/TRUE AP RIGHT- patient to return for xrfriday- not available at time of visit. - Follow-up with your PCP in 3-5 days if symptoms have not improved or sooner if symptoms worsen - Discussed red flags and need for immediate medical evaluation if any occur. - Discussed supportive care treatment with fluids, rest and analgesia. - Discussed expected course of illness Jana Erwin APRN.CNP documented in this encounterBar[facility]03[facility] Instructions* Patient Instructions* Jana Erwin APRN.CNP - 11/24/2021 2:49 PM EDT ASSESSMENT/PLAN: 1. Bursitis of right shoulder - ICD9: 726.10, ICD10: M75.51 (primary diagnosis) - PREDNISONE 20 MG TABLET - may also use lidocaine patches (over the counter) - wear sling -rest shoulder and apply ice two-3 times daily. 2. Acute pain of right shoulder - ICD9: 719.41, ICD10: M25.511 - XR SHOULDER [id number] AP/TRUE AP RIGHT- patient to return for xrfriday. - Follow-up with your PCP in 3-5 days if symptoms have not improved or sooner if symptoms worsen - Discussed red flags and need for immediate medical evaluation if any occur. - Discussed supportive care treatment with fluids, rest and analgesia. - Discussed expected course of illness Jana Erwin APRN.CNP Bursitis What is bursitis? Bursitis is the inflammation or irritation of the bursa. The bursa is a small sac filled with lubricating fluid, located between tissues such as bone, muscle, tendons, and skin. Bursae help to decrease friction, rubbing and irritation and help your joints move with ease. There are more than 150 bursae in your body. Bursitis occurs when a bursa becomes inflamed; this results in pain and discomfort. The pain may be gradual (building up over time) or may be sudden and severe (especially if calciumdeposits are present). What causes bursitis? Bursitis is most often caused by repetitive motions (ie, overuse); or direct, minor impact on the area (such as from such activities as repeated bumping or prolonged pressure from kneeling). Less often, bursitis is caused from a sudden, more serious injury. Other examples of the sources of bursitis include one or more of the following: Play or work activities that cause overuse or injury to the joint areas, for example: Gardening Raking Carpentry Shoveling Painting Scrubbing Sports (tennis, golf, throwing and pitching, etc.) Incorrect posture injury Stress on the soft tissues from an abnormal or poorly positioned joint or bone (such as leg length differences or arthritis in a joint) Other diseases or conditions (rheumatoid arthritis, gout, psoriasis, thyroid disease or an unusual drug reaction) and rarely, from infection Many times, the cause of bursitis is unknown. Where does bursitis occur? Bursae are located throughout the body. However, certain joints are more subject to increased pressure and repetitive use, making bursitis more likely to develop in them. These joints include the shoulders, elbows, knees, and feet. Bursae near the hip joint, particularly those on the outer side of the hip, and those in the buttocks (subjected to pressure from sitting) are also prone to bursitis. How is bursitis treated? Treatment goals include reduction in pain and inflammation, as well as preserving mobility and preventing disability and recurrence. Treatment recommendations may include a combination of rest, splints, heat and cold application. More advanced treatment options include: Nonsteroidal anti-inflammatory drugs, such as ibuprofen or naproxen Corticosteroid injections given by your health care provider. Injections work quickly to decrease the inflammation and pain. Physical therapy that includes range of motion exercises and splinting. This can be very beneficial. Surgery, when other treatments are not effective. When should you seek medical advice? Most cases of bursitis improve without any treatment over a few weeks. See your health care provider if you have any of the following signs or symptoms: You experience pain that interferes with your normal day-to-day activities or have soreness that doesn't improve despite self-care measures. You have recurrence of bursitis. You have a fever or the area affected appears red, swollen or warm. In addition, see your doctor if you have other medical conditions that may increase your risk of aninfection, or if you take medications that increase your risk of infection, such as corticosteroidsor immunosuppressants. How can you prevent bursitis? Because most cases of bursitis are caused by overuse, the best treatment is prevention. It is important to avoid or modify the activities that cause the problem. Underlying conditions such as leg length differences, improper posture or poor technique in sports or work must be corrected. Some positions, such as kneeling and sitting, significantly increase joint pressure. Apply these basic rules when performing activities: Take it slow at first and gradually build up your activity level. Use limited force and limited repetitions. Stop if unusual pain occurs. Use cushions and pads to reduce pressure. References [employer]. Tendinitis and Bursitis Accessed 07/05/2014. [employer] [place] [employer] and [employer] Skin [employer]. Bursitis and tendinitis Accessed 07/05/2014. Bunny RSEENDIZ. Chapter 281. Acute Disorders of the Joints and Bursae. In: Harrison PRASAD, Ozzy J,Sunny O, Talisha DM, Brianna RK, Harish RUIZ, T. eds. [employer]'s Emergency Medicine: A Comprehensive Study Guide, 7e. [place], [place]: [facility]; 2011. documented in [facility] encounterBar[facility] History of Past illness Narrative* Problem Noted Date Resolved Date SOB (shortness of breath) 07/14/20202021 Kidney disease 03/23/2019 07/06/2019 Morbid obesity 04/04/2015 03/23/2019 Overview: Patient has morbid obesity. Last Assessment & Plan: Most of her life she was a 100 pounds and athletic, since the past 10 years she got really worse. Patient has morbid obesity. She would benefit from the gastric bypass. documented as of this encounter (statuses as of 05/01/2022) [address]13-2020 History of Past illness Narrative* Problem Noted Date Resolved Date SOB (shortness of breath) 07/14/20202021 Kidney disease 03/23/2019 07/06/2019 Morbid obesity 04/04/2015 03/23/2019 Overview: Patient has morbid obesity. Last Assessment & Plan: Most of her life she was a 100 pounds and athletic, since the past 10 years she got really worse. Patient has morbid obesity. She would benefit from the gastric bypass. documented as of this encounter (statuses as of 05/15/2022) [facility] History of Past illness Narrative* Problem Noted Date Resolved Date SOB (shortness of breath) 07/14/20202021 Kidney disease 03/23/2019 07/06/2019 Morbid obesity 04/04/2015 03/23/2019 Overview: Patient has morbid obesity. Last Assessment & Plan: Most of her life she was a 100 pounds and athletic, since the past 10 years she got really worse. Patient has morbid obesity. She would benefit from the gastric bypass. documented as of this encounter (statuses as of 06/03/2022) [facility] History of Past illness Narrative* Problem Noted Date Resolved Date SOB (shortness of breath) 07/14/20202021 Kidney disease 03/23/2019 07/06/2019 Morbid obesity 04/04/2015 03/23/2019 Overview: Patient has morbid obesity. Last Assessment & Plan: Most of her life she was a 100 pounds and athletic, since the past 10 years she got really worse. Patient has morbid obesity. She would benefit from the gastric bypass. documented as of this encounter (statuses as of 06/04/2022) [facility] History of Past illness Narrative* Problem Noted Date Resolved Date SOB (shortness of breath) 07/14/20202021 Kidney disease 03/23/2019 07/06/2019 Morbid obesity 04/04/2015 03/23/2019 Overview: Patient has morbid obesity. Last Assessment & Plan: Most of her life she was a 100 pounds and athletic, since the past 10 years she got really worse. Patient has morbid obesity. She would benefit from the gastric bypass. documented as of this encounter (statuses as of 06/05/2022) [facility] History of Past illness Narrative* Problem Noted Date Resolved Date SOB (shortness of breath) 07/14/20202021 Kidney disease 03/23/2019 07/06/2019 Morbid obesity 04/04/2015 03/23/2019 Overview: Patient has morbid obesity. Last Assessment & Plan: Most of her life she was a 100 pounds and athletic, since the past 10 years she got really worse. Patient has morbid obesity. She would benefit from the gastric bypass. documented as of this encounter (statuses as of 07/06/2022) [facility] History of Past illness Narrative* Problem Noted Date Resolved Date SOB (shortness of breath) 07/14/20202021 Kidney disease 03/23/2019 07/06/2019 Morbid obesity 04/04/2015 03/23/2019 Overview: Patient has morbid obesity. Last Assessment & Plan: Most of her life she was a 100 pounds and athletic, since the past 10 years she got really worse. Patient has morbid obesity. She would benefit from the gastric bypass. documented as of this encounter (statuses as of 07/10/2022) [facility] History of Past illness Narrative* Problem Noted Date Resolved Date SOB (shortness of breath) 07/14/20202021 Kidney disease 03/23/2019 07/06/2019 Morbid obesity 04/04/2015 03/23/2019 Overview: Patient has morbid obesity. Last Assessment & Plan: Most of her life she was a 100 pounds and athletic, since the past 10 years she got really worse. Patient has morbid obesity. She would benefit from the gastric bypass. documented as of this encounter (statuses as of 07/17/2022) [facility] History of Past illness Narrative* Problem Noted Date Resolved Date SOB (shortness of breath) 07/14/20202021 Kidney disease 03/23/2019 07/06/2019 Morbid obesity 04/04/2015 03/23/2019 Overview: Patient has morbid obesity. Last Assessment & Plan: Most of her life she was a 100 pounds and athletic, since the past 10 years she got really worse. Patient has morbid obesity. She would benefit from the gastric bypass. documented as of this encounter (statuses as of 07/29/2022) [facility] History of Past illness Narrative* Problem Noted Date Resolved Date SOB (shortness of breath) 07/14/20202021 Kidney disease 03/23/2019 07/06/2019 Morbid obesity 04/04/2015 03/23/2019 Overview: Patient has morbid obesity. Last Assessment & Plan: Most of her life she was a 100 pounds and athletic, since the past 10 years she got really worse. Patient has morbid obesity. She would benefit from the gastric bypass. documented as of this encounter (statuses as of 08/25/2022) [facility] of Past illness Narrative* Problem Noted Date Resolved Date SOB (shortness of breath) 07/14/20202021 Kidney disease 03/23/2019 07/06/2019 Morbid obesity 04/04/2015 03/23/2019 Overview: Patient has morbid obesity. Last Assessment & Plan: Most of her life she was a 100 pounds and athletic, since the past 10 years she got really worse. Patient has morbid obesity. She would benefit from the gastric bypass. documented as of this encounter (statuses as of 08/25/2022) [facility] of Past illness Narrative* Problem Noted Date Resolved Date SOB (shortness of breath) 07/14/20202021 Kidney disease 03/23/2019 07/06/2019 Morbid obesity 04/04/2015 03/23/2019 Overview: Patient has morbid obesity. Last Assessment & Plan: Most of her life she was a 100 pounds and athletic, since the past 10 years she got really worse. Patient has morbid obesity. She would benefit from the gastric bypass. documented as of this encounter (statuses as of 09/04/2022) [facility] of Past illness Narrative* Problem Noted Date Resolved Date SOB (shortness of breath) 07/14/20202021 Kidney disease 03/23/2019 07/06/2019 Morbid obesity 04/04/2015 03/23/2019 Overview: Patient has morbid obesity. Last Assessment & Plan: Most of her life she was a 100 pounds and athletic, since the past 10 years she got really worse. Patient has morbid obesity. She would benefit from the gastric bypass. documented as of this encounter (statuses as of 09/10/2022) [facility] of Past illness Narrative* Problem Noted Date Resolved Date SOB (shortness of breath) 07/14/20202021 Kidney disease 03/23/2019 07/06/2019 Morbid obesity 04/04/2015 03/23/2019 Overview: Patient has morbid obesity. Last Assessment & Plan: Most of her life she was a 100 pounds and athletic, since the past 10 years she got really worse. Patient has morbid obesity. She would benefit from the gastric bypass. documented as of this encounter (statuses as of 09/10/2022) [facility] of Past illness Narrative* Problem Noted Date Resolved Date SOB (shortness of breath) 07/14/20202021 Kidney disease 03/23/2019 07/06/2019 Morbid obesity 04/04/2015 03/23/2019 Overview: Patient has morbid obesity. Last Assessment & Plan: Most of her life she was a 100 pounds and athletic, since the past 10 years she got really worse. Patient has morbid obesity. She would benefit from the gastric bypass. documented as of this encounter (statuses as of 09/11/2022) [facility] History of Past illness Narrative* Problem Noted Date Resolved Date SOB (shortness of breath) 07/14/20202021 Kidney disease 03/23/2019 07/06/2019 Morbid obesity 04/04/2015 03/23/2019 Overview: Patient has morbid obesity. Last Assessment & Plan: Most of her life she was a 100 pounds and athletic, since the past 10 years she got really worse. Patient has morbid obesity. She would benefit from the gastric bypass. documented as of this encounter (statuses as of 09/11/2022) [facility] illness Narrative* Problem Noted Date Resolved Date SOB (shortness of breath) 07/14/20202021 Kidney disease 03/23/2019 07/06/2019 Morbid obesity 04/04/2015 03/23/2019 Overview: Patient has morbid obesity. Last Assessment & Plan: Most of her life she was a 100 pounds and athletic, since the past 10 years she got really worse. Patient has morbid obesity. She would benefit from the gastric bypass. documented as of this encounter (statuses as of 10/02/2022) [facility] of Past illness Narrative* Problem Noted Date Resolved Date SOB (shortness of breath) 07/14/20202021 Kidney disease 03/23/2019 07/06/2019 Morbid obesity 04/04/2015 03/23/2019 Overview: Patient has morbid obesity. Last Assessment & Plan: Most of her life she was a 100 pounds and athletic, since the past 10 years she got really worse. Patient has morbid obesity. She would benefit from the gastric bypass. documented as of this encounter (statuses as of 10/02/2022) [facility] of Past illness Narrative* Problem Noted Date Resolved Date SOB (shortness of breath) 07/14/20202021 Kidney disease 03/23/2019 07/06/2019 Morbid obesity 04/04/2015 03/23/2019 Overview: Patient has morbid obesity. Last Assessment & Plan: Most of her life she was a 100 pounds and athletic, since the past 10 years she got really worse. Patient has morbid obesity. She would benefit from the gastric bypass. documented as of this encounter (statuses as of 10/18/2022) [facility] of [facility] illness Narrative* Problem Noted Date Resolved Date SOB (shortness of breath) 07/14/20202021 Kidney disease 03/23/2019 07/06/2019 Morbid obesity 04/04/2015 03/23/2019 Overview: Patient has morbid obesity. Last Assessment & Plan: Most of her life she was a 100 pounds and athletic, since the past 10 years she got really worse. Patient has morbid obesity. She would benefit from the gastric bypass. documented as of this encounter (statuses as of 11/22/2022) [facility] illness Narrative* Problem Noted Date Resolved Date SOB (shortness of breath) 07/14/20202021 Kidney disease 03/23/2019 07/06/2019 Morbid obesity 04/04/2015 03/23/2019 Overview: Patient has morbid obesity. Last Assessment & Plan: Most of her life she was a 100 pounds and athletic, since the past 10 years she got really worse. Patient has morbid obesity. She would benefit from the gastric bypass. documented as of this encounter (statuses as of 11/30/2022) [facility] illness Narrative* Problem Noted Date Resolved Date SOB (shortness of breath) 07/14/20202021 Kidney disease 03/23/2019 07/06/2019 Morbid obesity 04/04/2015 03/23/2019 Overview: Patient has morbid obesity. Last Assessment & Plan: Most of her life she was a 100 pounds and athletic, since the past 10 years she got really worse. Patient has morbid obesity. She would benefit from the gastric bypass. documented as of this encounter (statuses as of 12/21/2022) [facility]2020 History of Past illness Narrative* Problem Noted Date Resolved Date SOB (shortness of breath) 07/14/20202021 Kidney disease 03/23/2019 07/06/2019 Morbid obesity 04/04/2015 03/23/2019 Overview: Patient has morbid obesity. Last Assessment & Plan: Most of her life she was a 100 pounds and athletic, since the past 10 years she got really worse. Patient has morbid obesity. She would benefit from the gastric bypass. documented as of this encounter (statuses as of 12/24/2022) [facility]2020 History of Past illness Narrative* Problem Noted Date Resolved Date SOB (shortness of breath) 07/14/20202021 Kidney disease 03/23/2019 07/06/2019 Morbid obesity 04/04/2015 03/23/2019 Overview: Patient has morbid obesity. Last Assessment & Plan: Most of her life she was a 100 pounds and athletic, since the past 10 years she got really worse. Patient has morbid obesity. She would benefit from the gastric bypass. documented as of this encounter (statuses as of 01/01/2023) [facility]2020 History of Past illness Narrative* Problem Noted Date Resolved Date SOB (shortness of breath) 07/14/20202021 Kidney disease 03/23/2019 07/06/2019 Morbid obesity 04/04/2015 03/23/2019 Overview: Patient has morbid obesity. Last Assessment & Plan: Most of her life she was a 100 pounds and athletic, since the past 10 years she got really worse. Patient has morbid obesity. She would benefit from the gastric bypass. documented as of this encounter (statuses as of 01/04/2023) [facility]2020 History of Past illness Narrative* Problem Noted Date Resolved Date SOB (shortness of breath) 07/14/20202021 Kidney disease 03/23/2019 07/06/2019 Morbid obesity 04/04/2015 03/23/2019 Overview: Patient has morbid obesity. Last Assessment & Plan: Most of her life she was a 100 pounds and athletic, since the past 10 years she got really worse. Patient has morbid obesity. She would benefit from the gastric bypass. documented as of this encounter (statuses as of 01/07/2023) [facility] History of Past illness Narrative* Problem Noted Date Resolved Date SOB (shortness of breath) 07/14/20202021 Kidney disease 03/23/2019 07/06/2019 Morbid obesity 04/04/2015 03/23/2019 Overview: Patient has morbid obesity. Last Assessment & Plan: Most of her life she was a 100 pounds and athletic, since the past 10 years she got really worse. Patient has morbid obesity. She would benefit from the gastric bypass. documented as of this encounter (statuses as of 01/30/2023) [facility] History of Past illness Narrative* Problem Noted Date Resolved Date Kidney disease 03/23/2019 07/06/2019 Morbid obesity 04/04/2015 03/23/2019 Overview: Patient has morbid obesity. Last Assessment & Plan: Most of her life she was a 100 pounds and athletic, since the past 10 years she got really worse. Patient has morbid obesity. She would benefit from the gastric bypass. documented as of this encounter (statuses as of 11/24/2021) [facility] History of Past illness Narrative* Problem Noted Date Resolved Date Kidney disease 03/23/2019 07/06/2019 Morbid obesity 04/04/2015 03/23/2019 Overview: Patient has morbid obesity. Last Assessment & Plan: Most of her life she was a 100 pounds and athletic, since the past 10 years she got really worse. Patient has morbid obesity. She would benefit from the gastric bypass. documented as of this encounter (statuses as of 11/26/2021) [facility] History of Past illness Narrative* Problem Noted Date Resolved Date Kidney disease 03/23/2019 07/06/2019 Morbid obesity 04/04/2015 03/23/2019 Overview: Patient has morbid obesity. Last Assessment & Plan: Most of her life she was a 100 pounds and athletic, since the past 10 years she got really worse. Patient has morbid obesity. She would benefit from the gastric bypass. documented as of this encounter (statuses as of 12/19/2021) [facility] History of Past illness Narrative* Problem Noted Date Resolved Date Kidney disease 03/23/2019 07/06/2019 Morbid obesity 04/04/2015 03/23/2019 Overview: Patient has morbid obesity. Last Assessment & Plan: Most of her life she was a 100 pounds and athletic, since the past 10 years she got really worse. Patient has morbid obesity. She would benefit from the gastric bypass. documented as of this encounter (statuses as of 02/04/2022) [facility] History of Past illness Narrative* Problem Noted Date Resolved Date Kidney disease 03/23/2019 07/06/2019 Morbid obesity 04/04/2015 03/23/2019 Overview: Patient has morbid obesity. Last Assessment & Plan: Most of her life she was a 100 pounds and athletic, since the past 10 years she got really worse. Patient has morbid obesity. She would benefit from the gastric bypass. documented as of this encounter (statuses as of 03/11/2022) [facility] History of Past illness Narrative* Problem Noted Date Resolved Date Kidney disease 03/23/2019 07/06/2019 Morbid obesity 04/04/2015 03/23/2019 Overview: Patient has morbid obesity. Last Assessment & Plan: Most of her life she was a 100 pounds and athletic, since the past 10 years she got really worse. Patient has morbid obesity. She would benefit from the gastric bypass. documented as of this encounter (statuses as of 03/20/2022) [facility] History of Past illness Narrative* Problem Noted Date Resolved Date Kidney disease 03/23/2019 07/06/2019 Morbid obesity 04/04/2015 03/23/2019 Overview: Patient has morbid obesity. Last Assessment & Plan: Most of her life she was a 100 pounds and athletic, since the past 10 years she got really worse. Patient has morbid obesity. She would benefit from the gastric bypass. documented as of this encounter (statuses as of 04/11/2022) [facility] Bursitis of right shoulder- Primary Disorders of bursae and tendons in shoulder region, unspecified Acute pain of right shoulder [facility] Diagnosis Type 2 diabetes mellitus with stage 3 chronic kidney disease, with long-term current use of insulin (HCC) [facility] Diagnosis Controlled type 2 diabetes mellitus without complication, with long-term current use of insulin (HCC)- Primary Combined forms of age-related cataract of both eyes Other and combined forms of senile cataract Presbyopia [facility] noteNo assessment information availableWC[facility] Work Phone: Evaluation note* Diagnosis [facility] Diagnosis Status post laparoscopic cholecystectomy- Primary Other postprocedural status [facility] Diagnosis Screening mammogram for breast cancer [facility] Diagnosis Muscle pain- Primary Mylagia and myositis, unspecified [facility] Diagnosis Chronic pain of both shoulders- Primary Pain in joint, shoulder region Essential hypertension Unspecified essential hypertension Type 2 diabetes mellitus with stage 3 chronic kidney disease, with long-term current use of insulin, unspecified whether stage 3a or 3b CKD (HCC) Hypothyroidism, unspecified type [facility]* Diagnosis Bilateral shoulder pain, unspecified chronicity- Primary documented in this encounter [facility] note* Diagnosis Chronic pain of both shoulders- Primary Pain in joint, shoulder region [facility] Diagnosis Encounter to establish care- Primary Other reasons for seeking consultation Stable angina pectoris (HCC) Primary hypertension Unspecified essential hypertension Other hyperlipidemia KAM (obstructive sleep apnea) CPAP intolerant Obstructive sleep apnea (adult) (pediatric) Moderate persistent asthma without complication Unspecified asthma Type 2 diabetes mellitus with stage 3a chronic kidney disease, with long-term current use of insulin (HCC) Hypothyroidism, unspecified type Class 3 severe obesity due to excess calories with serious comorbidity and body mass index (BMI) of 40.0 to 44.9 in adult (HCC) Insomnia, unspecified type RLS (restless legs syndrome) Restless legs syndrome (RLS) Chronic pain of both shoulders Pain in joint, shoulder region Multiple gallstones Inconclusive mammogram Essential hypertension Unspecified essential hypertension Type 2 diabetes mellitus with stage 3 chronic kidney disease, with long-term current use of insulin (HCC) Low vitamin D level documented in this encounter [facility] note* Diagnosis Type 2 diabetes mellitus with stage 3 chronic kidney disease, with long-term current use of insulin (HCC) [facility] Diagnosis Galactorrhea of left breast- Primary Galactorrhea not associated with childbirth Subareolar mass of left breast Galactorrhea of left breast Galactorrhea not associated with childbirth Subareolar mass of left breast [facility] Diagnosis Insomnia, unspecified type- Primary RLS (restless legs syndrome) Restless legs syndrome (RLS) KAM (obstructive sleep apnea) Obstructive sleep apnea (adult) (pediatric) [facility] Diagnosis Nipple discharge in female- Primary Other sign and symptom in breast Benign breast cyst in female, left Stable angina pectoris (HCC) Primary hypertension Unspecified essential hypertension Other hyperlipidemia KAM (obstructive sleep apnea) CPAP intolerant Obstructive sleep apnea (adult) (pediatric) Moderate persistent asthma without complication Unspecified asthma Type 2 diabetes mellitus with stage 3a chronic kidney disease, with long-term current use of insulin ([facility]) Hypothyroidism, unspecified type RLS (restless legs syndrome) Restless legs syndrome (RLS) Low vitamin D level Essential hypertension Unspecified essential hypertension Type 2 diabetes mellitus with stage 3 chronic kidney disease, with long-term current use of insulin ([facility]) [facility] Diagnosis RLS (restless legs syndrome)- Primary Restless legs syndrome (RLS) Insomnia, unspecified type KAM (obstructive sleep apnea) Obstructive sleep apnea (adult) (pediatric) [facility] Diagnosis Restless legs syndrome- Primary Restless legs syndrome (RLS) KAM (obstructive sleep apnea) Obstructive sleep apnea (adult) (pediatric) [facility] Diagnosis Moderate persistent asthma without complication Unspecified asthma [facility] Diagnosis Abnormal ultrasound of breast- Primary Other (abnormal) findings on radiological examination of breast [facility] Diagnosis Stable angina pectoris (HCC)- Primary Primary hypertension Unspecified essential hypertension Other hyperlipidemia Moderate persistent asthma without complication Unspecified asthma KAM (obstructive sleep apnea) CPAP intolerant Obstructive sleep apnea (adult) (pediatric) Type 2 diabetes mellitus with stage 3a chronic kidney disease, with long-term current use of insulin ([facility]) Hypothyroidism, unspecified type RLS (restless legs syndrome) Restless legs syndrome (RLS) Insomnia, unspecified type Low vitamin D level Chronic pain of both shoulders Pain in joint, shoulder region Fatigue, unspecified type Class 3 severe obesity due to excess calories with serious comorbidity and body mass index (BMI) of 40.0 to 44.9 in adult ([facility]) [facility] Diagnosis Type 2 diabetes mellitus with stage 3a chronic kidney disease, with long-term current use of insulin ([facility]) [facility] Diagnosis Abnormal screening mammogram Abnormal mammogram, unspecified [facility] Diagnosis Abnormal screening mammogram Abnormal mammogram, unspecified [facility] Diagnosis Abnormal mammogram Abnormal mammogram, unspecified [facility]* Diagnosis Galactorrhea of left breast Galactorrhea not associated with childbirth Subareolar mass of left breast [facility] Diagnosis Abnormal mammogram Abnormal mammogram, unspecified [facility] Diagnosis Galactorrhea of left breast Galactorrhea not associated with childbirth Subareolar mass of left breast [facility] Diagnosis Moderate persistent asthma without complication Unspecified asthma [facility] Diagnosis Abnormal ultrasound of breast Other (abnormal) findings on radiological examination of breast [facility] Diagnosis Abnormal ultrasound of breast Other (abnormal) findings on radiological examination of breast [facility] Diagnosis Exertional dyspnea Other dyspnea and respiratory abnormality [facility] Diagnosis Renal insufficiency- Primary Unspecified disorder of kidney and ureter [facility] Diagnosis Dehydration- Primary [facility] Diagnosis Inconclusive mammogram- Primary Hypothyroidism, unspecified type Type 2 diabetes mellitus with stage 3a chronic kidney disease, with long-term current use of insulin ([facility]) Gastroesophageal reflux disease, unspecified whether esophagitis present Adjustment disorder with depressed mood Class 3 severe obesity due to excess calories with serious comorbidity and body mass index (BMI) of 40.0 to 44.9 in adult ([facility]) Moderate persistent asthma without complication Unspecified asthma KAM (obstructive sleep apnea) CPAP intolerant Obstructive sleep apnea (adult) (pediatric) Other hyperlipidemia RLS (restless legs syndrome) Restless legs syndrome (RLS) Stable angina pectoris ([facility]) Primary hypertension Unspecified essential hypertension Insomnia, unspecified type [facility]conclusive [facility] Diagnosis Inconclusive mammogram [facility] Diagnosis Essential hypertension Unspecified essential hypertension documented in this encounter [facility] note* Diagnosis Renal insufficiency- Primary Unspecified disorder of kidney and ureter documented in this encounter [facility] note* Diagnosis Moderate persistent asthma without complication Unspecified asthma documented in this encounter [facility] note* Diagnosis Other hyperlipidemia Insomnia, unspecified type [facility] Diagnosis Type 2 diabetes mellitus with complication (HCC)- Primary Chest pain, unspecified chest pain type Essential hypertension Unspecified essential hypertension Acquired hypothyroidism Unspecified hypothyroidism Morbid obesity (HCC) Morbid obesity SOB (shortness of breath)- Primary Shortness of breath Diabetes mellitus due to underlying condition without complications (HCC) Secondary diabetes mellitus without mention of complication, not stated as uncontrolled, or unspecified Other chest pain Essential hypertension Unspecified essential hypertension Bruit of right carotid artery Type 2 diabetes mellitus with hyperglycemia (HCC)- Primary Type II or unspecified type diabetes mellitus without mention of complication, not stated as uncontrolled SOB (shortness of breath) Shortness of breath Rash and nonspecific skin eruption Rash and other nonspecific skin eruption Essential hypertension- Primary Unspecified essential hypertension Diabetes mellitus due to underlying condition with complications (HCC) Morbid obesity due to excess calories (HCC) Acquired hypothyroidism Unspecified hypothyroidism SOB (shortness of breath) Shortness of breath KAM (obstructive sleep apnea) Obstructive sleep apnea (adult) (pediatric) KAM (obstructive sleep apnea)- Primary Obstructive sleep apnea (adult) (pediatric) Moderate persistent asthma without complication Unspecified asthma SOB (shortness of breath) Shortness of breath Morbid obesity due to excess calories (HCC) Essential hypertension Unspecified essential hypertension Primary insomnia Persistent disorder of initiating or maintaining sleep Diabetes mellitus due to underlying condition with complications (HCC) Breast cancer screening, high risk patient Screening mammogram for high-risk patient Routine health maintenance Routine general medical examination at a health care facility KAM (obstructive sleep apnea)- Primary Obstructive sleep apnea (adult) (pediatric) 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 due to medical condition classified elsewhere SOB (shortness of breath) Shortness of breath Encounter for breast cancer screening other than mammogram Breast screening, unspecified Hoarseness of voice Dysphonia Diabetes mellitus due to underlying condition with complication, without long- term current use of insulin (HCC) Colon cancer screening Special screening for malignant neoplasms, colon KAM (obstructive sleep apnea)- Primary Obstructive sleep apnea (adult) (pediatric) 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 due to medical condition classified elsewhere Diabetes mellitus due to underlying condition with complication, without long- term current use of insulin ([facility]) Essential hypertension Unspecified essential hypertension Hypothyroidism, unspecified type Gastroesophageal reflux disease without esophagitis Esophageal reflux Essential hypertension- Primary Unspecified essential hypertension Type 2 diabetes mellitus with stage 3a chronic kidney disease, with long-term current use of insulin ([facility]) Hypothyroidism, unspecified type Insomnia, unspecified type RLS (restless legs syndrome) Restless legs syndrome (RLS) Other hyperlipidemia KAM (obstructive sleep apnea) Obstructive sleep apnea (adult) (pediatric) Moderate persistent asthma without complication Unspecified asthma Obesity, Class III, BMI >= 40 Morbid obesity Primary hypertension- Primary Unspecified essential hypertension Type 2 diabetes mellitus with stage 3a chronic kidney disease, with long-term current use of insulin ([facility]) Screening for depression Encounter for screening examination for other mental health and behavioral disorders Moderate persistent asthma without complication Unspecified asthma Other specified hypothyroidism KAM (obstructive sleep apnea) CPAP intolerant Obstructive sleep apnea (adult) (pediatric) Class 3 severe obesity due to excess calories with serious comorbidity and body mass index (BMI) of 40.0 to 44.9 in adult ([facility]) Insomnia, unspecified type [facility] Type 2 diabetes mellitus with complication ([facility])- Primary Chest pain, unspecified chest pain type Essential hypertension Unspecified essential hypertension Acquired hypothyroidism Unspecified hypothyroidism Morbid obesity (HCC) Morbid obesity SOB (shortness of breath)- Primary Shortness of breath Diabetes mellitus due to underlying condition without complications (HCC) Secondary diabetes mellitus without mention of complication, not stated as uncontrolled, or unspecified Other chest pain Essential hypertension Unspecified essential hypertension Bruit of right carotid artery Type 2 diabetes mellitus with hyperglycemia (HCC)- Primary Type II or unspecified type diabetes mellitus without mention of complication, not stated as uncontrolled SOB (shortness of breath) Shortness of breath Rash and nonspecific skin eruption Rash and other nonspecific skin eruption Essential hypertension- Primary Unspecified essential hypertension Diabetes mellitus due to underlying condition with complications (HCC) Morbid obesity due to excess calories (HCC) Acquired hypothyroidism Unspecified hypothyroidism SOB (shortness of breath) Shortness of breath KAM (obstructive sleep apnea) Obstructive sleep apnea (adult) (pediatric) KAM (obstructive sleep apnea)- Primary Obstructive sleep apnea (adult) (pediatric) Moderate persistent asthma without complication Unspecified asthma SOB (shortness of breath) Shortness of breath Morbid obesity due to excess calories (HCC) Essential hypertension Unspecified essential hypertension Primary insomnia Persistent disorder of initiating or maintaining sleep Diabetes mellitus due to underlying condition with complications (HCC) Breast cancer screening, high risk patient Screening mammogram for high-risk patient Routine health maintenance Routine general medical examination at a health care facility KAM (obstructive sleep apnea)- Primary Obstructive sleep apnea (adult) (pediatric) 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 due to medical condition classified elsewhere SOB (shortness of breath) Shortness of breath Encounter for breast cancer screening other than mammogram Breast screening, unspecified Hoarseness of voice Dysphonia Diabetes mellitus due to underlying condition with complication, without long- term current use of insulin (HCC) Colon cancer screening Special screening for malignant neoplasms, colon KAM (obstructive sleep apnea)- Primary Obstructive sleep apnea (adult) (pediatric) 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 due to medical condition classified elsewhere Diabetes mellitus due to underlying condition with complication, without long- term current use of insulin (HCC) Essential hypertension Unspecified essential hypertension Hypothyroidism, unspecified type Gastroesophageal reflux disease without esophagitis Esophageal reflux Essential hypertension- Primary Unspecified essential hypertension Type 2 diabetes mellitus with stage 3a chronic kidney disease, with long-term current use of insulin (HCC) Hypothyroidism, unspecified type Insomnia, unspecified type RLS (restless legs syndrome) Restless legs syndrome (RLS) Other hyperlipidemia KAM (obstructive sleep apnea) Obstructive sleep apnea (adult) (pediatric) Moderate persistent asthma without complication Unspecified asthma Obesity, Class III, BMI >= 40 Morbid obesity Anemia, unspecified type- [facility] Diagnosis Type 2 diabetes mellitus with complication (HCC)- Primary Chest pain, unspecified chest pain type Essential hypertension Unspecified essential hypertension Acquired hypothyroidism Unspecified hypothyroidism Morbid obesity (HCC) Morbid obesity SOB (shortness of breath)- Primary Shortness of breath Diabetes mellitus due to underlying condition without complications (HCC) Secondary diabetes mellitus without mention of complication, not stated as uncontrolled, or unspecified Other chest pain Essential hypertension Unspecified essential hypertension Bruit of right carotid artery Type 2 diabetes mellitus with hyperglycemia (HCC)- Primary Type II or unspecified type diabetes mellitus without mention of complication, not stated as uncontrolled SOB (shortness of breath) Shortness of breath Rash and nonspecific skin eruption Rash and other nonspecific skin eruption Essential hypertension- Primary Unspecified essential hypertension Diabetes mellitus due to underlying condition with complications (HCC) Morbid obesity due to excess calories (HCC) Acquired hypothyroidism Unspecified hypothyroidism SOB (shortness of breath) Shortness of breath KAM (obstructive sleep apnea) Obstructive sleep apnea (adult) (pediatric) KAM (obstructive sleep apnea)- Primary Obstructive sleep apnea (adult) (pediatric) Moderate persistent asthma without complication Unspecified asthma SOB (shortness of breath) Shortness of breath Morbid obesity due to excess calories (HCC) Essential hypertension Unspecified essential hypertension Primary insomnia Persistent disorder of initiating or maintaining sleep Diabetes mellitus due to underlying condition with complications (HCC) Breast cancer screening, high risk patient Screening mammogram for high-risk patient Routine health maintenance Routine general medical examination at a health care facility KAM (obstructive sleep apnea)- Primary Obstructive sleep apnea (adult) (pediatric) 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 due to medical condition classified elsewhere SOB (shortness of breath) Shortness of breath Encounter for breast cancer screening other than mammogram Breast screening, unspecified Hoarseness of voice Dysphonia Diabetes mellitus due to underlying condition with complication, without long- term current use of insulin (HCC) Colon cancer screening Special screening for malignant neoplasms, colon KAM (obstructive sleep apnea)- Primary Obstructive sleep apnea (adult) (pediatric) 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 due to medical condition classified elsewhere Diabetes mellitus due to underlying condition with complication, without long- term current use of insulin (HCC) Essential hypertension Unspecified essential hypertension Hypothyroidism, unspecified type Gastroesophageal reflux disease without esophagitis Esophageal reflux Essential hypertension- Primary Unspecified essential hypertension Type 2 diabetes mellitus with stage 3a chronic kidney disease, with long-term current use of insulin (HCC) Hypothyroidism, unspecified type Insomnia, unspecified type RLS (restless legs syndrome) Restless legs syndrome (RLS) Other hyperlipidemia KAM (obstructive sleep apnea) Obstructive sleep apnea (adult) (pediatric) Moderate persistent asthma without complication Unspecified asthma Obesity, Class III, BMI >= 40 Morbid obesity Other hyperlipidemia- Primary [facility] Diagnosis Type 2 diabetes mellitus with complication (HCC)- Primary Chest pain, unspecified chest pain type Essential hypertension Unspecified essential hypertension Acquired hypothyroidism Unspecified hypothyroidism Morbid obesity (HCC) Morbid obesity SOB (shortness of breath)- Primary Shortness of breath Diabetes mellitus due to underlying condition without complications (HCC) Secondary diabetes mellitus without mention of complication, not stated as uncontrolled, or unspecified Other chest pain Essential hypertension Unspecified essential hypertension Bruit of right carotid artery Type 2 diabetes mellitus with hyperglycemia (HCC)- Primary Type II or unspecified type diabetes mellitus without mention of complication, not stated as uncontrolled SOB (shortness of breath) Shortness of breath Rash and nonspecific skin eruption Rash and other nonspecific skin eruption Essential hypertension- Primary Unspecified essential hypertension Diabetes mellitus due to underlying condition with complications (HCC) Morbid obesity due to excess calories (HCC) Acquired hypothyroidism Unspecified hypothyroidism SOB (shortness of breath) Shortness of breath KAM (obstructive sleep apnea) Obstructive sleep apnea (adult) (pediatric) KAM (obstructive sleep apnea)- Primary Obstructive sleep apnea (adult) (pediatric) Moderate persistent asthma without complication Unspecified asthma SOB (shortness of breath) Shortness of breath Morbid obesity due to excess calories (HCC) Essential hypertension Unspecified essential hypertension Primary insomnia Persistent disorder of initiating or maintaining sleep Diabetes mellitus due to underlying condition with complications (HCC) Breast cancer screening, high risk patient Screening mammogram for high-risk patient Routine health maintenance Routine general medical examination at a health care facility KAM (obstructive sleep apnea)- Primary Obstructive sleep apnea (adult) (pediatric) 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 due to medical condition classified elsewhere SOB (shortness of breath) Shortness of breath Encounter for breast cancer screening other than mammogram Breast screening, unspecified Hoarseness of voice Dysphonia Diabetes mellitus due to underlying condition with complication, without long- term current use of insulin (HCC) Colon cancer screening Special screening for malignant neoplasms, colon KAM (obstructive sleep apnea)- Primary Obstructive sleep apnea (adult) (pediatric) 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 due to medical condition classified elsewhere Diabetes mellitus due to underlying condition with complication, without long- term current use of insulin (HCC) Essential hypertension Unspecified essential hypertension Hypothyroidism, unspecified type Gastroesophageal reflux disease without esophagitis Esophageal reflux Essential hypertension- Primary Unspecified essential hypertension Type 2 diabetes mellitus with stage 3a chronic kidney disease, with long-term current use of insulin (HCC) Hypothyroidism, unspecified type Insomnia, unspecified type RLS (restless legs syndrome) Restless legs syndrome (RLS) Other hyperlipidemia KAM (obstructive sleep apnea) Obstructive sleep apnea (adult) (pediatric) Moderate persistent asthma without complication Unspecified asthma Obesity, Class III, BMI >= 40 Morbid obesity Bilateral shoulder pain, unspecified chronicity [facility] Diagnosis Type 2 diabetes mellitus with complication (HCC)- Primary Chest pain, unspecified chest pain type Essential hypertension Unspecified essential hypertension Acquired hypothyroidism Unspecified hypothyroidism Morbid obesity (HCC) Morbid obesity SOB (shortness of breath)- Primary Shortness of breath Diabetes mellitus due to underlying condition without complications (HCC) Secondary diabetes mellitus without mention of complication, not stated as uncontrolled, or unspecified Other chest pain Essential hypertension Unspecified essential hypertension Bruit of right carotid artery Type 2 diabetes mellitus with hyperglycemia ([facility])- Primary Type II or unspecified type diabetes mellitus without mention of complication, not stated as uncontrolled SOB (shortness of breath) Shortness of breath Rash and nonspecific skin eruption Rash and other nonspecific skin eruption Essential hypertension- Primary Unspecified essential hypertension Diabetes mellitus due to underlying condition with complications (HCC) Morbid obesity due to excess calories (HCC) Acquired hypothyroidism Unspecified hypothyroidism SOB (shortness of breath) Shortness of breath KAM (obstructive sleep apnea) Obstructive sleep apnea (adult) (pediatric) KAM (obstructive sleep apnea)- Primary Obstructive sleep apnea (adult) (pediatric) Moderate persistent asthma without complication Unspecified asthma SOB (shortness of breath) Shortness of breath Morbid obesity due to excess calories (HCC) Essential hypertension Unspecified essential hypertension Primary insomnia Persistent disorder of initiating or maintaining sleep Diabetes mellitus due to underlying condition with complications ([facility]) Breast cancer screening, high risk patient Screening mammogram for high-risk patient Routine health maintenance Routine general medical examination at a health care facility KAM (obstructive sleep apnea)- Primary Obstructive sleep apnea (adult) (pediatric) 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 due to medical condition classified elsewhere SOB (shortness of breath) Shortness of breath Encounter for breast cancer screening other than mammogram Breast screening, unspecified Hoarseness of voice Dysphonia Diabetes mellitus due to underlying condition with complication, without long- term current use of insulin ([facility]) Colon cancer screening Special screening for malignant neoplasms, colon KAM (obstructive sleep apnea)- Primary Obstructive sleep apnea (adult) (pediatric) 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 due to medical condition classified elsewhere Diabetes mellitus due to underlying condition with complication, without long- term current use of insulin ([facility]) Essential hypertension Unspecified essential hypertension Hypothyroidism, unspecified type Gastroesophageal reflux disease without esophagitis Esophageal reflux Essential hypertension- Primary Unspecified essential hypertension Type 2 diabetes mellitus with stage 3a chronic kidney disease, with long-term current use of insulin ([facility]) Hypothyroidism, unspecified type Insomnia, unspecified type RLS (restless legs syndrome) Restless legs syndrome (RLS) Other hyperlipidemia KAM (obstructive sleep apnea) Obstructive sleep apnea (adult) (pediatric) Moderate persistent asthma without complication Unspecified asthma Obesity, Class III, BMI >= 40 Morbid obesity Acute pain of right shoulder documented in this encounter [facility] note* Diagnosis Type 2 diabetes mellitus with complication (HCC)- Primary Chest pain, unspecified chest pain type Essential hypertension Unspecified essential hypertension Acquired hypothyroidism Unspecified hypothyroidism Morbid obesity (HCC) Morbid obesity SOB (shortness of breath)- Primary Shortness of breath Diabetes mellitus due to underlying condition without complications (HCC) Secondary diabetes mellitus without mention of complication, not stated as uncontrolled, or unspecified Other chest pain Essential hypertension Unspecified essential hypertension Bruit of right carotid artery Type 2 diabetes mellitus with hyperglycemia (HCC)- Primary Type II or unspecified type diabetes mellitus without mention of complication, not stated as uncontrolled SOB (shortness of breath) Shortness of breath Rash and nonspecific skin eruption Rash and other nonspecific skin eruption Essential hypertension- Primary Unspecified essential hypertension Diabetes mellitus due to underlying condition with complications (HCC) Morbid obesity due to excess calories (HCC) Acquired hypothyroidism Unspecified hypothyroidism SOB (shortness of breath) Shortness of breath KAM (obstructive sleep apnea) Obstructive sleep apnea (adult) (pediatric) KAM (obstructive sleep apnea)- Primary Obstructive sleep apnea (adult) (pediatric) Moderate persistent asthma without complication Unspecified asthma SOB (shortness of breath) Shortness of breath Morbid obesity due to excess calories (HCC) Essential hypertension Unspecified essential hypertension Primary insomnia Persistent disorder of initiating or maintaining sleep Diabetes mellitus due to underlying condition with complications (HCC) Breast cancer screening, high risk patient Screening mammogram for high-risk patient Routine health maintenance Routine general medical examination at a health care facility KAM (obstructive sleep apnea)- Primary Obstructive sleep apnea (adult) (pediatric) 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 due to medical condition classified elsewhere SOB (shortness of breath) Shortness of breath Encounter for breast cancer screening other than mammogram Breast screening, unspecified Hoarseness of voice Dysphonia Diabetes mellitus due to underlying condition with complication, without long- term current use of insulin (HCC) Colon cancer screening Special screening for malignant neoplasms, colon KAM (obstructive sleep apnea)- Primary Obstructive sleep apnea (adult) (pediatric) 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 due to medical condition classified elsewhere Diabetes mellitus due to underlying condition with complication, without long- term current use of insulin (HCC) Essential hypertension Unspecified essential hypertension Hypothyroidism, unspecified type Gastroesophageal reflux disease without esophagitis Esophageal reflux Essential hypertension- Primary Unspecified essential hypertension Type 2 diabetes mellitus with stage 3a chronic kidney disease, with long-term current use of insulin (HCC) Hypothyroidism, unspecified type Insomnia, unspecified type RLS (restless legs syndrome) Restless legs syndrome (RLS) Other hyperlipidemia KAM (obstructive sleep apnea) Obstructive sleep apnea (adult) (pediatric) Moderate persistent asthma without complication Unspecified asthma Obesity, Class III, BMI >= 40 Morbid obesity Encounter for screening mammogram for breast cancer [facility] Diagnosis Type 2 diabetes mellitus with complication (HCC)- Primary Chest pain, unspecified chest pain type Essential hypertension Unspecified essential hypertension Acquired hypothyroidism Unspecified hypothyroidism Morbid obesity (HCC) Morbid obesity SOB (shortness of breath)- Primary Shortness of breath Diabetes mellitus due to underlying condition without complications (HCC) Secondary diabetes mellitus without mention of complication, not stated as uncontrolled, or unspecified Other chest pain Essential hypertension Unspecified essential hypertension Bruit of right carotid artery Type 2 diabetes mellitus with hyperglycemia ([facility])- Primary Type II or unspecified type diabetes mellitus without mention of complication, not stated as uncontrolled SOB (shortness of breath) Shortness of breath Rash and nonspecific skin eruption Rash and other nonspecific skin eruption Essential hypertension- Primary Unspecified essential hypertension Diabetes mellitus due to underlying condition with complications (HCC) Morbid obesity due to excess calories (HCC) Acquired hypothyroidism Unspecified hypothyroidism SOB (shortness of breath) Shortness of breath KAM (obstructive sleep apnea) Obstructive sleep apnea (adult) (pediatric) KAM (obstructive sleep apnea)- Primary Obstructive sleep apnea (adult) (pediatric) Moderate persistent asthma without complication Unspecified asthma SOB (shortness of breath) Shortness of breath Morbid obesity due to excess calories (HCC) Essential hypertension Unspecified essential hypertension Primary insomnia Persistent disorder of initiating or maintaining sleep Diabetes mellitus due to underlying condition with complications (HCC) Breast cancer screening, high risk patient Screening mammogram for high-risk patient Routine health maintenance Routine general medical examination at a health care facility KAM (obstructive sleep apnea)- Primary Obstructive sleep apnea (adult) (pediatric) 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 due to medical condition classified elsewhere SOB (shortness of breath) Shortness of breath Encounter for breast cancer screening other than mammogram Breast screening, unspecified Hoarseness of voice Dysphonia Diabetes mellitus due to underlying condition with complication, without long- term current use of insulin (HCC) Colon cancer screening Special screening for malignant neoplasms, colon KAM (obstructive sleep apnea)- Primary Obstructive sleep apnea (adult) (pediatric) 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 due to medical condition classified elsewhere Diabetes mellitus due to underlying condition with complication, without long- term current use of insulin (HCC) Essential hypertension Unspecified essential hypertension Hypothyroidism, unspecified type Gastroesophageal reflux disease without esophagitis Esophageal reflux Essential hypertension- Primary Unspecified essential hypertension Type 2 diabetes mellitus with stage 3a chronic kidney disease, with long-term current use of insulin (HCC) Hypothyroidism, unspecified type Insomnia, unspecified type RLS (restless legs syndrome) Restless legs syndrome (RLS) Other hyperlipidemia KAM (obstructive sleep apnea) Obstructive sleep apnea (adult) (pediatric) Moderate persistent asthma without complication Unspecified asthma Obesity, Class III, BMI >= 40 Morbid obesity Type 2 diabetes mellitus with stage 3a chronic kidney disease, with long-term current use of insulin (HCC) [facility] Diagnosis Type 2 diabetes mellitus with complication (HCC)- Primary Chest pain, unspecified chest pain type Essential hypertension Unspecified essential hypertension Acquired hypothyroidism Unspecified hypothyroidism Morbid obesity (HCC) Morbid obesity SOB (shortness of breath)- Primary Shortness of breath Diabetes mellitus due to underlying condition without complications (HCC) Secondary diabetes mellitus without mention of complication, not stated as uncontrolled, or unspecified Other chest pain Essential hypertension Unspecified essential hypertension Bruit of right carotid artery Type 2 diabetes mellitus with hyperglycemia (HCC)- Primary Type II or unspecified type diabetes mellitus without mention of complication, not stated as uncontrolled SOB (shortness of breath) Shortness of breath Rash and nonspecific skin eruption Rash and other nonspecific skin eruption Essential hypertension- Primary Unspecified essential hypertension Diabetes mellitus due to underlying condition with complications (HCC) Morbid obesity due to excess calories (HCC) Acquired hypothyroidism Unspecified hypothyroidism SOB (shortness of breath) Shortness of breath KAM (obstructive sleep apnea) Obstructive sleep apnea (adult) (pediatric) KAM (obstructive sleep apnea)- Primary Obstructive sleep apnea (adult) (pediatric) Moderate persistent asthma without complication Unspecified asthma SOB (shortness of breath) Shortness of breath Morbid obesity due to excess calories (HCC) Essential hypertension Unspecified essential hypertension Primary insomnia Persistent disorder of initiating or maintaining sleep Diabetes mellitus due to underlying condition with complications (HCC) Breast cancer screening, high risk patient Screening mammogram for high-risk patient Routine health maintenance Routine general medical examination at a [facility] KAM (obstructive sleep apnea)- Primary Obstructive sleep apnea (adult) (pediatric) 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 due to medical condition classified elsewhere SOB (shortness of breath) Shortness of breath Encounter for breast cancer screening other than mammogram Breast screening, unspecified Hoarseness of voice Dysphonia Diabetes mellitus due to underlying condition with complication, without long- term current use of insulin (HCC) Colon cancer screening Special screening for malignant neoplasms, colon KAM (obstructive sleep apnea)- Primary Obstructive sleep apnea (adult) (pediatric) 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 due to medical condition classified elsewhere Diabetes mellitus due to underlying condition with complication, without long- term current use of insulin (HCC) Essential hypertension Unspecified essential hypertension Hypothyroidism, unspecified type Gastroesophageal reflux disease without esophagitis Esophageal reflux Essential hypertension- Primary Unspecified essential hypertension Type 2 diabetes mellitus with stage 3a chronic kidney disease, with long-term current use of insulin (HCC) Hypothyroidism, unspecified type Insomnia, unspecified type RLS (restless legs syndrome) Restless legs syndrome (RLS) Other hyperlipidemia KAM (obstructive sleep apnea) Obstructive sleep apnea (adult) (pediatric) Moderate persistent asthma without complication Unspecified asthma Obesity, Class III, BMI >= 40 Morbid obesity Hypothyroidism, unspecified type [facility] Type 2 diabetes mellitus with complication (HCC)- Primary Chest pain, unspecified chest pain type Essential hypertension Unspecified essential hypertension Acquired hypothyroidism Unspecified hypothyroidism Morbid obesity (HCC) Morbid obesity SOB (shortness of breath)- Primary Shortness of breath Diabetes mellitus due to underlying condition without complications (HCC) Secondary diabetes mellitus without mention of complication, not stated as uncontrolled, or unspecified Other chest pain Essential hypertension Unspecified essential hypertension Bruit of right carotid artery Type 2 diabetes mellitus with hyperglycemia (HCC)- Primary Type II or unspecified type diabetes mellitus without mention of complication, not stated as uncontrolled SOB (shortness of breath) Shortness of breath Rash and nonspecific skin eruption Rash and other nonspecific skin eruption Essential hypertension- Primary Unspecified essential hypertension Diabetes mellitus due to underlying condition with complications (HCC) Morbid obesity due to excess calories (HCC) Acquired hypothyroidism Unspecified hypothyroidism SOB (shortness of breath) Shortness of breath KAM (obstructive sleep apnea) Obstructive sleep apnea (adult) (pediatric) KAM (obstructive sleep apnea)- Primary Obstructive sleep apnea (adult) (pediatric) Moderate persistent asthma without complication Unspecified asthma SOB (shortness of breath) Shortness of breath Morbid obesity due to excess calories (HCC) Essential hypertension Unspecified essential hypertension Primary insomnia Persistent disorder of initiating or maintaining sleep Diabetes mellitus due to underlying condition with complications (HCC) Breast cancer screening, high risk patient Screening mammogram for high-risk patient Routine health maintenance Routine general medical examination at a health care facility KAM (obstructive sleep apnea)- Primary Obstructive sleep apnea (adult) (pediatric) 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 due to medical condition classified elsewhere SOB (shortness of breath) Shortness of breath Encounter for breast cancer screening other than mammogram Breast screening, unspecified Hoarseness of voice Dysphonia Diabetes mellitus due to underlying condition with complication, without long- term current use of insulin (HCC) Colon cancer screening Special screening for malignant neoplasms, colon KAM (obstructive sleep apnea)- Primary Obstructive sleep apnea (adult) (pediatric) 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 due to medical condition classified elsewhere Diabetes mellitus due to underlying condition with complication, without long- term current use of insulin (HCC) Essential hypertension Unspecified essential hypertension Hypothyroidism, unspecified type Gastroesophageal reflux disease without esophagitis Esophageal reflux Essential hypertension- Primary Unspecified essential hypertension Type 2 diabetes mellitus with stage 3a chronic kidney disease, with long-term current use of insulin (HCC) Hypothyroidism, unspecified type Insomnia, unspecified type RLS (restless legs syndrome) Restless legs syndrome (RLS) Other hyperlipidemia KAM (obstructive sleep apnea) Obstructive sleep apnea (adult) (pediatric) Moderate persistent asthma without complication Unspecified asthma Obesity, Class III, BMI >= 40 Morbid obesity Type 2 diabetes mellitus with stage 3a chronic kidney disease, with long-term current use of insulin (HCC)- [facility] Diagnosis Type 2 diabetes mellitus with complication (HCC)- Primary Chest pain, unspecified chest pain type Essential hypertension Unspecified essential hypertension Acquired hypothyroidism Unspecified hypothyroidism Morbid obesity (HCC) Morbid obesity SOB (shortness of breath)- Primary Shortness of breath Diabetes mellitus due to underlying condition without complications (HCC) Secondary diabetes mellitus without mention of complication, not stated as uncontrolled, or unspecified Other chest pain Essential hypertension Unspecified essential hypertension Bruit of right carotid artery Type 2 diabetes mellitus with hyperglycemia (HCC)- Primary Type II or unspecified type diabetes mellitus without mention of complication, not stated as uncontrolled SOB (shortness of breath) Shortness of breath Rash and nonspecific skin eruption Rash and other nonspecific skin eruption Essential hypertension- Primary Unspecified essential hypertension Diabetes mellitus due to underlying condition with complications (HCC) Morbid obesity due to excess calories (HCC) Acquired hypothyroidism Unspecified hypothyroidism SOB (shortness of breath) Shortness of breath KAM (obstructive sleep apnea) Obstructive sleep apnea (adult) (pediatric) KAM (obstructive sleep apnea)- Primary Obstructive sleep apnea (adult) (pediatric) Moderate persistent asthma without complication Unspecified asthma SOB (shortness of breath) Shortness of breath Morbid obesity due to excess calories (HCC) Essential hypertension Unspecified essential hypertension Primary insomnia Persistent disorder of initiating or maintaining sleep Diabetes mellitus due to underlying condition with complications (HCC) Breast cancer screening, high risk patient Screening mammogram for high-risk patient Routine health maintenance Routine general medical examination at a health care facility KAM (obstructive sleep apnea)- Primary Obstructive sleep apnea (adult) (pediatric) 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 due to medical condition classified elsewhere SOB (shortness of breath) Shortness of breath Encounter for breast cancer screening other than mammogram Breast screening, unspecified Hoarseness of voice Dysphonia Diabetes mellitus due to underlying condition with complication, without long- term current use of insulin ([facility]) Colon cancer screening Special screening for malignant neoplasms, colon KAM (obstructive sleep apnea)- Primary Obstructive sleep apnea (adult) (pediatric) 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 due to medical condition classified elsewhere Diabetes mellitus due to underlying condition with complication, without long- term current use of insulin (HCC) Essential hypertension Unspecified essential hypertension Hypothyroidism, unspecified type Gastroesophageal reflux disease without esophagitis Esophageal reflux Essential hypertension- Primary Unspecified essential hypertension Type 2 diabetes mellitus with stage 3a chronic kidney disease, with long-term current use of insulin ([facility]) Hypothyroidism, unspecified type Insomnia, unspecified type RLS (restless legs syndrome) Restless legs syndrome (RLS) Other hyperlipidemia KAM (obstructive sleep apnea) Obstructive sleep apnea (adult) (pediatric) Moderate persistent asthma without complication Unspecified asthma Obesity, Class III, BMI >= 40 Morbid obesity Screening for colon cancer- Primary Special screening for malignant neoplasms, colon Type 2 diabetes mellitus with stage 3a chronic kidney disease, with long-term current use of insulin ([facility]) Vitamin B12 deficiency Other B-complex deficiencies Medicare annual wellness visit, subsequent Routine general medical examination at a health care facility Memory changes Memory loss Stage 3a chronic kidney disease (HCC) Hyperlipidemia, mixed Mixed hyperlipidemia Acute recurrent frontal sinusitis Acute frontal sinusitis Acute bronchitis, unspecified organism Essential hypertension Unspecified essential hypertension Other hyperlipidemia Moderate persistent asthma without complication Unspecified asthma Gastroesophageal reflux disease, unspecified whether esophagitis present Hypothyroidism, acquired Unspecified hypothyroidism Bilateral shoulder pain, unspecified chronicity [facility] Diagnosis Type 2 diabetes mellitus with complication (HCC)- Primary Chest pain, unspecified chest pain type Essential hypertension Unspecified essential hypertension Acquired hypothyroidism Unspecified hypothyroidism Morbid obesity (HCC) Morbid obesity SOB (shortness of breath)- Primary Shortness of breath Diabetes mellitus due to underlying condition without complications (HCC) Secondary diabetes mellitus without mention of complication, not stated as uncontrolled, or unspecified Other chest pain Essential hypertension Unspecified essential hypertension Bruit of right carotid artery Type 2 diabetes mellitus with hyperglycemia (HCC)- Primary Type II or unspecified type diabetes mellitus without mention of complication, not stated as uncontrolled SOB (shortness of breath) Shortness of breath Rash and nonspecific skin eruption Rash and other nonspecific skin eruption Essential hypertension- Primary Unspecified essential hypertension Diabetes mellitus due to underlying condition with complications (HCC) Morbid obesity due to excess calories (HCC) Acquired hypothyroidism Unspecified hypothyroidism SOB (shortness of breath) Shortness of breath KAM (obstructive sleep apnea) Obstructive sleep apnea (adult) (pediatric) KAM (obstructive sleep apnea)- Primary Obstructive sleep apnea (adult) (pediatric) Moderate persistent asthma without complication Unspecified asthma SOB (shortness of breath) Shortness of breath Morbid obesity due to excess calories (HCC) Essential hypertension Unspecified essential hypertension Primary insomnia Persistent disorder of initiating or maintaining sleep Diabetes mellitus due to underlying condition with complications ([facility]) Breast cancer screening, high risk patient Screening mammogram for high-risk patient Routine health maintenance Routine general medical examination at a health care facility KAM (obstructive sleep apnea)- Primary Obstructive sleep apnea (adult) (pediatric) 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 due to medical condition classified elsewhere SOB (shortness of breath) Shortness of breath Encounter for breast cancer screening other than mammogram Breast screening, unspecified Hoarseness of voice Dysphonia Diabetes mellitus due to underlying condition with complication, without long- term current use of insulin ([facility]) Colon cancer screening Special screening for malignant neoplasms, colon KAM (obstructive sleep apnea)- Primary Obstructive sleep apnea (adult) (pediatric) 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 due to medical condition classified elsewhere Diabetes mellitus due to underlying condition with complication, without long- term current use of insulin ([facility]) Essential hypertension Unspecified essential hypertension Hypothyroidism, unspecified type Gastroesophageal reflux disease without esophagitis Esophageal reflux Essential hypertension- Primary Unspecified essential hypertension Type 2 diabetes mellitus with stage 3a chronic kidney disease, with long-term current use of insulin (HCC) Hypothyroidism, unspecified type Insomnia, unspecified type RLS (restless legs syndrome) Restless legs syndrome (RLS) Other hyperlipidemia KAM (obstructive sleep apnea) Obstructive sleep apnea (adult) (pediatric) Moderate persistent asthma without complication Unspecified asthma Obesity, Class III, BMI >= 40 Morbid obesity Bilateral shoulder pain, unspecified chronicity documented in this encounter [facility] note* Diagnosis Type 2 diabetes mellitus with complication (HCC)- Primary Chest pain, unspecified chest pain type Essential hypertension Unspecified essential hypertension Acquired hypothyroidism Unspecified hypothyroidism Morbid obesity (HCC) Morbid obesity SOB (shortness of breath)- Primary Shortness of breath Diabetes mellitus due to underlying condition without complications (HCC) Secondary diabetes mellitus without mention of complication, not stated as uncontrolled, or unspecified Other chest pain Essential hypertension Unspecified essential hypertension Bruit of right carotid artery Type 2 diabetes mellitus with hyperglycemia (HCC)- Primary Type II or unspecified type diabetes mellitus without mention of complication, not stated as uncontrolled SOB (shortness of breath) Shortness of breath Rash and nonspecific skin eruption Rash and other nonspecific skin eruption Essential hypertension- Primary Unspecified essential hypertension Diabetes mellitus due to underlying condition with complications (HCC) Morbid obesity due to excess calories (HCC) Acquired hypothyroidism Unspecified hypothyroidism SOB (shortness of breath) Shortness of breath KAM (obstructive sleep apnea) Obstructive sleep apnea (adult) (pediatric) KAM (obstructive sleep apnea)- Primary Obstructive sleep apnea (adult) (pediatric) Moderate persistent asthma without complication (HCC) Unspecified asthma SOB (shortness of breath) Shortness of breath Morbid obesity due to excess calories (HCC) Essential hypertension Unspecified essential hypertension Primary insomnia Persistent disorder of initiating or maintaining sleep Diabetes mellitus due to underlying condition with complications (HCC) Breast cancer screening, high risk patient Screening mammogram for high-risk patient Routine health maintenance Routine general medical examination at a health care facility KAM (obstructive sleep apnea)- Primary Obstructive sleep apnea (adult) (pediatric) 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 due to medical condition classified elsewhere SOB (shortness of breath) Shortness of breath Encounter for breast cancer screening other than mammogram Breast screening, unspecified Hoarseness of voice Dysphonia Diabetes mellitus due to underlying condition with complication, without long- term current use of insulin (HCC) Colon cancer screening Special screening for malignant neoplasms, colon KAM (obstructive sleep apnea)- Primary Obstructive sleep apnea (adult) (pediatric) 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 due to medical condition classified elsewhere Diabetes mellitus due to underlying condition with complication, without long- term current use of insulin (HCC) Essential hypertension Unspecified essential hypertension Hypothyroidism, unspecified type Gastroesophageal reflux disease without esophagitis Esophageal reflux Essential hypertension- Primary Unspecified essential hypertension Type 2 diabetes mellitus with stage 3a chronic kidney disease, with long-term current use of insulin (HCC) Hypothyroidism, unspecified type Insomnia, unspecified type RLS (restless legs syndrome) Restless legs syndrome (RLS) Other hyperlipidemia KAM (obstructive sleep apnea) Obstructive sleep apnea (adult) (pediatric) Moderate persistent asthma without complication (HCC) Unspecified asthma Obesity, Class III, BMI >= 40 Morbid obesity Type 2 diabetes mellitus with stage 3a chronic kidney disease, with long-term current use of insulin (HCC)- Primary Hypothyroidism, unspecified type Class 3 severe obesity due to excess calories with serious comorbidity and body mass index (BMI) of 40.0 to 44.9 in adult Vitamin B12 deficiency Other B-complex deficiencies Hypomagnesemia Disorders of magnesium metabolism Pulmonary hypertension (HCC) Other chronic pulmonary heart diseases [facility] Diagnosis Type 2 diabetes mellitus with complication (HCC)- Primary Chest pain, unspecified chest pain type Essential hypertension Unspecified essential hypertension Acquired hypothyroidism Unspecified hypothyroidism Morbid obesity (HCC) Morbid obesity SOB (shortness of breath)- Primary Shortness of breath Diabetes mellitus due to underlying condition without complications (HCC) Secondary diabetes mellitus without mention of complication, not stated as uncontrolled, or unspecified Other chest pain Essential hypertension Unspecified essential hypertension Bruit of right carotid artery Type 2 diabetes mellitus with hyperglycemia (HCC)- Primary Type II or unspecified type diabetes mellitus without mention of complication, not stated as uncontrolled SOB (shortness of breath) Shortness of breath Rash and nonspecific skin eruption Rash and other nonspecific skin eruption Essential hypertension- Primary Unspecified essential hypertension Diabetes mellitus due to underlying condition with complications (HCC) Morbid obesity due to excess calories (HCC) Acquired hypothyroidism Unspecified hypothyroidism SOB (shortness of breath) Shortness of breath KAM (obstructive sleep apnea) Obstructive sleep apnea (adult) (pediatric) KAM (obstructive sleep apnea)- Primary Obstructive sleep apnea (adult) (pediatric) Moderate persistent asthma without complication (HCC) Unspecified asthma SOB (shortness of breath) Shortness of breath Morbid obesity due to excess calories (HCC) Essential hypertension Unspecified essential hypertension Primary insomnia Persistent disorder of initiating or maintaining sleep Diabetes mellitus due to underlying condition with complications (HCC) Breast cancer screening, high risk patient Screening mammogram for high-risk patient Routine health maintenance Routine general medical examination at a health care facility KAM (obstructive sleep apnea)- Primary Obstructive sleep apnea (adult) (pediatric) 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 due to medical condition classified elsewhere SOB (shortness of breath) Shortness of breath Encounter for breast cancer screening other than mammogram Breast screening, unspecified Hoarseness of voice Dysphonia Diabetes mellitus due to underlying condition with complication, without long- term current use of insulin (HCC) Colon cancer screening Special screening for malignant neoplasms, colon KAM (obstructive sleep apnea)- Primary Obstructive sleep apnea (adult) (pediatric) 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 due to medical condition classified elsewhere Diabetes mellitus due to underlying condition with complication, without long- term current use of insulin (HCC) Essential hypertension Unspecified essential hypertension Hypothyroidism, unspecified type Gastroesophageal reflux disease without esophagitis Esophageal reflux Essential hypertension- Primary Unspecified essential hypertension Type 2 diabetes mellitus with stage 3a chronic kidney disease, with long-term current use of insulin (HCC) Hypothyroidism, unspecified type Insomnia, unspecified type RLS (restless legs syndrome) Restless legs syndrome (RLS) Other hyperlipidemia KAM (obstructive sleep apnea) Obstructive sleep apnea (adult) (pediatric) Moderate persistent asthma without complication (HCC) Unspecified asthma Obesity, Class III, BMI >= 40 Morbid obesity Bilateral shoulder pain, unspecified chronicity Type 2 diabetes mellitus with hyperglycemia, with long-term current use of insulin (HCC) Stage 3a chronic kidney disease (HCC) [facility] Diagnosis Type 2 diabetes mellitus with complication (HCC)- Primary Chest pain, unspecified chest pain type Essential hypertension Unspecified essential hypertension Acquired hypothyroidism Unspecified hypothyroidism Morbid obesity (HCC) Morbid obesity SOB (shortness of breath)- Primary Shortness of breath Diabetes mellitus due to underlying condition without complications (HCC) Secondary diabetes mellitus without mention of complication, not stated as uncontrolled, or unspecified Other chest pain Essential hypertension Unspecified essential hypertension Bruit of right carotid artery Type 2 diabetes mellitus with hyperglycemia (HCC)- Primary Type II or unspecified type diabetes mellitus without mention of complication, not stated as uncontrolled SOB (shortness of breath) Shortness of breath Rash and nonspecific skin eruption Rash and other nonspecific skin eruption Essential hypertension- Primary Unspecified essential hypertension Diabetes mellitus due to underlying condition with complications (HCC) Morbid obesity due to excess calories (HCC) Acquired hypothyroidism Unspecified hypothyroidism SOB (shortness of breath) Shortness of breath KAM (obstructive sleep apnea) Obstructive sleep apnea (adult) (pediatric) KAM (obstructive sleep apnea)- Primary Obstructive sleep apnea (adult) (pediatric) Moderate persistent asthma without complication (HCC) Unspecified asthma SOB (shortness of breath) Shortness of breath Morbid obesity due to excess calories (HCC) Essential hypertension Unspecified essential hypertension Primary insomnia Persistent disorder of initiating or maintaining sleep Diabetes mellitus due to underlying condition with complications (HCC) Breast cancer screening, high risk patient Screening mammogram for high-risk patient Routine health maintenance Routine general medical examination at a health care facility KAM (obstructive sleep apnea)- Primary Obstructive sleep apnea (adult) (pediatric) 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 due to medical condition classified elsewhere SOB (shortness of breath) Shortness of breath Encounter for breast cancer screening other than mammogram Breast screening, unspecified Hoarseness of voice Dysphonia Diabetes mellitus due to underlying condition with complication, without long- term current use of insulin (HCC) Colon cancer screening Special screening for malignant neoplasms, colon KAM (obstructive sleep apnea)- Primary Obstructive sleep apnea (adult) (pediatric) 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 due to medical condition classified elsewhere Diabetes mellitus due to underlying condition with complication, without long- term current use of insulin (HCC) Essential hypertension Unspecified essential hypertension Hypothyroidism, unspecified type Gastroesophageal reflux disease without esophagitis Esophageal reflux Essential hypertension- Primary Unspecified essential hypertension Type 2 diabetes mellitus with stage 3a chronic kidney disease, with long-term current use of insulin (HCC) Hypothyroidism, unspecified type Insomnia, unspecified type RLS (restless legs syndrome) Restless legs syndrome (RLS) Other hyperlipidemia KAM (obstructive sleep apnea) Obstructive sleep apnea (adult) (pediatric) Moderate persistent asthma without complication (HCC) Unspecified asthma Obesity, Class III, BMI >= 40 Morbid obesity Hypothyroidism, unspecified type- Primary Hypomagnesemia 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, with long-term current use of insulin (HCC) Vitamin B12 deficiency Other B-complex deficiencies Stage 3a chronic kidney disease (HCC) Primary hypertension Unspecified essential hypertension Other hyperlipidemia [facility] Diagnosis Type 2 diabetes mellitus with complication (HCC)- Primary Chest pain, unspecified chest pain type Essential hypertension Unspecified essential hypertension Acquired hypothyroidism Unspecified hypothyroidism Morbid obesity (HCC) Morbid obesity SOB (shortness of breath)- Primary Shortness of breath Diabetes mellitus due to underlying condition without complications (HCC) Secondary diabetes mellitus without mention of complication, not stated as uncontrolled, or unspecified Other chest pain Essential hypertension Unspecified essential hypertension Bruit of right carotid artery Type 2 diabetes mellitus with hyperglycemia ([facility])- Primary Type II or unspecified type diabetes mellitus without mention of complication, not stated as uncontrolled SOB (shortness of breath) Shortness of breath Rash and nonspecific skin eruption Rash and other nonspecific skin eruption Essential hypertension- Primary Unspecified essential hypertension Diabetes mellitus due to underlying condition with complications (HCC) Morbid obesity due to excess calories (HCC) Acquired hypothyroidism Unspecified hypothyroidism SOB (shortness of breath) Shortness of breath KAM (obstructive sleep apnea) Obstructive sleep apnea (adult) (pediatric) KAM (obstructive sleep apnea)- Primary Obstructive sleep apnea (adult) (pediatric) Moderate persistent asthma without complication (HCC) Unspecified asthma SOB (shortness of breath) Shortness of breath Morbid obesity due to excess calories (HCC) Essential hypertension Unspecified essential hypertension Primary insomnia Persistent disorder of initiating or maintaining sleep Diabetes mellitus due to underlying condition with complications ([facility]) Breast cancer screening, high risk patient Screening mammogram for high-risk patient Routine health maintenance Routine general medical examination at a health care facility KAM (obstructive sleep apnea)- Primary Obstructive sleep apnea (adult) (pediatric) 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 due to medical condition classified elsewhere SOB (shortness of breath) Shortness of breath Encounter for breast cancer screening other than mammogram Breast screening, unspecified Hoarseness of voice Dysphonia Diabetes mellitus due to underlying condition with complication, without long- term current use of insulin ([facility]) Colon cancer screening Special screening for malignant neoplasms, colon KAM (obstructive sleep apnea)- Primary Obstructive sleep apnea (adult) (pediatric) 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 due to medical condition classified elsewhere Diabetes mellitus due to underlying condition with complication, without long- term current use of insulin ([facility]) Essential hypertension Unspecified essential hypertension Hypothyroidism, unspecified type Gastroesophageal reflux disease without esophagitis Esophageal reflux Essential hypertension- Primary Unspecified essential hypertension Type 2 diabetes mellitus with stage 3a chronic kidney disease, with long-term current use of insulin ([facility]) Hypothyroidism, unspecified type Insomnia, unspecified type RLS (restless legs syndrome) Restless legs syndrome (RLS) Other hyperlipidemia KAM (obstructive sleep apnea) Obstructive sleep apnea (adult) (pediatric) Moderate persistent asthma without complication (HCC) Unspecified asthma Obesity, Class III, BMI >= 40 Morbid obesity Controlled type 2 diabetes mellitus without complication, with long-term current use of insulin (HCC)- Primary documented in this encounter [facility] note* Diagnosis Type 2 diabetes mellitus with complication (HCC)- Primary Chest pain, unspecified chest pain type Essential hypertension Unspecified essential hypertension Acquired hypothyroidism Unspecified hypothyroidism Morbid obesity (HCC) Morbid obesity SOB (shortness of breath)- Primary Shortness of breath Diabetes mellitus due to underlying condition without complications (HCC) Secondary diabetes mellitus without mention of complication, not stated as uncontrolled, or unspecified Other chest pain Essential hypertension Unspecified essential hypertension Bruit of right carotid artery Type 2 diabetes mellitus with hyperglycemia (HCC)- Primary Type II or unspecified type diabetes mellitus without mention of complication, not stated as uncontrolled SOB (shortness of breath) Shortness of breath Rash and nonspecific skin eruption Rash and other nonspecific skin eruption Essential hypertension- Primary Unspecified essential hypertension Diabetes mellitus due to underlying condition with complications (HCC) Morbid obesity due to excess calories (HCC) Acquired hypothyroidism Unspecified hypothyroidism SOB (shortness of breath) Shortness of breath KAM (obstructive sleep apnea) Obstructive sleep apnea (adult) (pediatric) KAM (obstructive sleep apnea)- Primary Obstructive sleep apnea (adult) (pediatric) Moderate persistent asthma without complication (HCC) Unspecified asthma SOB (shortness of breath) Shortness of breath Morbid obesity due to excess calories (HCC) Essential hypertension Unspecified essential hypertension Primary insomnia Persistent disorder of initiating or maintaining sleep Diabetes mellitus due to underlying condition with complications (HCC) Breast cancer screening, high risk patient Screening mammogram for high-risk patient Routine health maintenance Routine general medical examination at a health care facility KAM (obstructive sleep apnea)- Primary Obstructive sleep apnea (adult) (pediatric) 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 due to medical condition classified elsewhere SOB (shortness of breath) Shortness of breath Encounter for breast cancer screening other than mammogram Breast screening, unspecified Hoarseness of voice Dysphonia Diabetes mellitus due to underlying condition with complication, without long- term current use of insulin (HCC) Colon cancer screening Special screening for malignant neoplasms, colon KAM (obstructive sleep apnea)- Primary Obstructive sleep apnea (adult) (pediatric) 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 due to medical condition classified elsewhere Diabetes mellitus due to underlying condition with complication, without long- term current use of insulin (HCC) Essential hypertension Unspecified essential hypertension Hypothyroidism, unspecified type Gastroesophageal reflux disease without esophagitis Esophageal reflux Essential hypertension- Primary Unspecified essential hypertension Type 2 diabetes mellitus with stage 3a chronic kidney disease, with long-term current use of insulin (HCC) Hypothyroidism, unspecified type Insomnia, unspecified type RLS (restless legs syndrome) Restless legs syndrome (RLS) Other hyperlipidemia KAM (obstructive sleep apnea) Obstructive sleep apnea (adult) (pediatric) Moderate persistent asthma without complication (HCC) Unspecified asthma Obesity, Class III, BMI >= 40 Morbid obesity Hypomagnesemia- Primary Disorders of magnesium metabolism Hyperkalemia Hyperpotassemia [facility] Diagnosis Type 2 diabetes mellitus with complication (HCC)- Primary Chest pain, unspecified chest pain type Essential hypertension Unspecified essential hypertension Acquired hypothyroidism Unspecified hypothyroidism Morbid obesity (HCC) Morbid obesity SOB (shortness of breath)- Primary Shortness of breath Diabetes mellitus due to underlying condition without complications (HCC) Secondary diabetes mellitus without mention of complication, not stated as uncontrolled, or unspecified Other chest pain Essential hypertension Unspecified essential hypertension Bruit of right carotid artery Type 2 diabetes mellitus with hyperglycemia (HCC)- Primary Type II or unspecified type diabetes mellitus without mention of complication, not stated as uncontrolled SOB (shortness of breath) Shortness of breath Rash and nonspecific skin eruption Rash and other nonspecific skin eruption Essential hypertension- Primary Unspecified essential hypertension Diabetes mellitus due to underlying condition with complications (HCC) Morbid obesity due to excess calories (HCC) Acquired hypothyroidism Unspecified hypothyroidism SOB (shortness of breath) Shortness of breath KAM (obstructive sleep apnea) Obstructive sleep apnea (adult) (pediatric) KAM (obstructive sleep apnea)- Primary Obstructive sleep apnea (adult) (pediatric) Moderate persistent asthma without complication (HCC) Unspecified asthma SOB (shortness of breath) Shortness of breath Morbid obesity due to excess calories (HCC) Essential hypertension Unspecified essential hypertension Primary insomnia Persistent disorder of initiating or maintaining sleep Diabetes mellitus due to underlying condition with complications (HCC) Breast cancer screening, high risk patient Screening mammogram for high-risk patient Routine health maintenance Routine general medical examination at a health care facility KAM (obstructive sleep apnea)- Primary Obstructive sleep apnea (adult) (pediatric) 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 due to medical condition classified elsewhere SOB (shortness of breath) Shortness of breath Encounter for breast cancer screening other than mammogram Breast screening, unspecified Hoarseness of voice Dysphonia Diabetes mellitus due to underlying condition with complication, without long- term current use of insulin ([facility]) Colon cancer screening Special screening for malignant neoplasms, colon KAM (obstructive sleep apnea)- Primary Obstructive sleep apnea (adult) (pediatric) 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 due to medical condition classified elsewhere Diabetes mellitus due to underlying condition with complication, without long- term current use of insulin ([facility]) Essential hypertension Unspecified essential hypertension Hypothyroidism, unspecified type Gastroesophageal reflux disease without esophagitis Esophageal reflux Essential hypertension- Primary Unspecified essential hypertension Type 2 diabetes mellitus with stage 3a chronic kidney disease, with long-term current use of insulin ([facility]) Hypothyroidism, unspecified type Insomnia, unspecified type RLS (restless legs syndrome) Restless legs syndrome (RLS) Other hyperlipidemia KAM (obstructive sleep apnea) Obstructive sleep apnea (adult) (pediatric) Moderate persistent asthma without complication ([facility]) Unspecified asthma Obesity, Class III, BMI >= 40 Morbid obesity Coronary artery disease of [place] heart with stable angina pectoris, unspecified vessel or lesion type- Primary Pulmonary hypertension (HCC) Other chronic pulmonary heart diseases Dyslipidemia Other and unspecified hyperlipidemia Type 2 diabetes mellitus without ophthalmic manifestations ([facility]) Type II or unspecified type diabetes mellitus without mention of complication, not stated as uncontrolled KAM (obstructive sleep apnea) CPAP intolerant Obstructive sleep apnea (adult) (pediatric) Primary hypertension Unspecified essential hypertension Other hyperlipidemia Hypothyroidism, unspecified type Class 3 severe obesity with body mass index (BMI) of 40.0 to 44.9 in adult ([facility]) Precordial pain [facility] Diagnosis Type 2 diabetes mellitus with complication ([facility])- Primary Chest pain, unspecified chest pain type Essential hypertension Unspecified essential hypertension Acquired hypothyroidism Unspecified hypothyroidism Morbid obesity (HCC) Morbid obesity SOB (shortness of breath)- Primary Shortness of breath Diabetes mellitus due to underlying condition without complications (HCC) Secondary diabetes mellitus without mention of complication, not stated as uncontrolled, or unspecified Other chest pain Essential hypertension Unspecified essential hypertension Bruit of right carotid artery Type 2 diabetes mellitus with hyperglycemia ([facility])- Primary Type II or unspecified type diabetes mellitus without mention of complication, not stated as uncontrolled SOB (shortness of breath) Shortness of breath Rash and nonspecific skin eruption Rash and other nonspecific skin eruption Essential hypertension- Primary Unspecified essential hypertension Diabetes mellitus due to underlying condition with complications (HCC) Morbid obesity due to excess calories (HCC) Acquired hypothyroidism Unspecified hypothyroidism SOB (shortness of breath) Shortness of breath KAM (obstructive sleep apnea) Obstructive sleep apnea (adult) (pediatric) KAM (obstructive sleep apnea)- Primary Obstructive sleep apnea (adult) (pediatric) Moderate persistent asthma without complication (HCC) Unspecified asthma SOB (shortness of breath) Shortness of breath Morbid obesity due to excess calories (HCC) Essential hypertension Unspecified essential hypertension Primary insomnia Persistent disorder of initiating or maintaining sleep Diabetes mellitus due to underlying condition with complications (HCC) Breast cancer screening, high risk patient Screening mammogram for high-risk patient Routine health maintenance Routine general medical examination at a health care facility KAM (obstructive sleep apnea)- Primary Obstructive sleep apnea (adult) (pediatric) 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 due to medical condition classified elsewhere SOB (shortness of breath) Shortness of breath Encounter for breast cancer screening other than mammogram Breast screening, unspecified Hoarseness of voice Dysphonia Diabetes mellitus due to underlying condition with complication, without long- term current use of insulin (HCC) Colon cancer screening Special screening for malignant neoplasms, colon KAM (obstructive sleep apnea)- Primary Obstructive sleep apnea (adult) (pediatric) 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 due to medical condition classified elsewhere Diabetes mellitus due to underlying condition with complication, without long- term current use of insulin (HCC) Essential hypertension Unspecified essential hypertension Hypothyroidism, unspecified type Gastroesophageal reflux disease without esophagitis Esophageal reflux Essential hypertension- Primary Unspecified essential hypertension Type 2 diabetes mellitus with stage 3a chronic kidney disease, with long-term current use of insulin (HCC) Hypothyroidism, unspecified type Insomnia, unspecified type RLS (restless legs syndrome) Restless legs syndrome (RLS) Other hyperlipidemia KAM (obstructive sleep apnea) Obstructive sleep apnea (adult) (pediatric) Moderate persistent asthma without complication (HCC) Unspecified asthma Obesity, Class III, BMI >= 40 Morbid obesity Primary osteoarthritis of left shoulder- Primary Primary localized osteoarthrosis, shoulder region Lumbar radicular pain Thoracic or lumbosacral neuritis or radiculitis, unspecified Type 2 diabetes mellitus with hyperglycemia, with long-term current use of insulin (HCC) [facility] Diagnosis Type 2 diabetes mellitus with complication (HCC)- Primary Chest pain, unspecified chest pain type Essential hypertension Unspecified essential hypertension Acquired hypothyroidism Unspecified hypothyroidism Morbid obesity (HCC) Morbid obesity SOB (shortness of breath)- Primary Shortness of breath Diabetes mellitus due to underlying condition without complications (HCC) Secondary diabetes mellitus without mention of complication, not stated as uncontrolled, or unspecified Other chest pain Essential hypertension Unspecified essential hypertension Bruit of right carotid artery Type 2 diabetes mellitus with hyperglycemia (HCC)- Primary Type II or unspecified type diabetes mellitus without mention of complication, not stated as uncontrolled SOB (shortness of breath) Shortness of breath Rash and nonspecific skin eruption Rash and other nonspecific skin eruption Essential hypertension- Primary Unspecified essential hypertension Diabetes mellitus due to underlying condition with complications (HCC) Morbid obesity due to excess calories (HCC) Acquired hypothyroidism Unspecified hypothyroidism SOB (shortness of breath) Shortness of breath KAM (obstructive sleep apnea) Obstructive sleep apnea (adult) (pediatric) KAM (obstructive sleep apnea)- Primary Obstructive sleep apnea (adult) (pediatric) Moderate persistent asthma without complication (HCC) Unspecified asthma SOB (shortness of breath) Shortness of breath Morbid obesity due to excess calories (HCC) Essential hypertension Unspecified essential hypertension Primary insomnia Persistent disorder of initiating or maintaining sleep Diabetes mellitus due to underlying condition with complications ([facility]) Breast cancer screening, high risk patient Screening mammogram for high-risk patient Routine health maintenance Routine general medical examination at a health care facility KAM (obstructive sleep apnea)- Primary Obstructive sleep apnea (adult) (pediatric) 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 due to medical condition classified elsewhere SOB (shortness of breath) Shortness of breath Encounter for breast cancer screening other than mammogram Breast screening, unspecified Hoarseness of voice Dysphonia Diabetes mellitus due to underlying condition with complication, without long- term current use of insulin ([facility]) Colon cancer screening Special screening for malignant neoplasms, colon KAM (obstructive sleep apnea)- Primary Obstructive sleep apnea (adult) (pediatric) 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 due to medical condition classified elsewhere Diabetes mellitus due to underlying condition with complication, without long- term current use of insulin ([facility]) Essential hypertension Unspecified essential hypertension Hypothyroidism, unspecified type Gastroesophageal reflux disease without esophagitis Esophageal reflux Essential hypertension- Primary Unspecified essential hypertension Type 2 diabetes mellitus with stage 3a chronic kidney disease, with long-term current use of insulin ([facility]) Hypothyroidism, unspecified type Insomnia, unspecified type RLS (restless legs syndrome) Restless legs syndrome (RLS) Other hyperlipidemia KAM (obstructive sleep apnea) Obstructive sleep apnea (adult) (pediatric) Moderate persistent asthma without complication (HCC) Unspecified asthma Obesity, Class III, BMI >= 40 Morbid obesity Class 3 severe obesity with body mass index (BMI) of 40.0 to 44.9 in adult (HCC)- Primary Primary hypertension Unspecified essential hypertension Insomnia, unspecified type Encounter for screening mammogram for breast cancer Screening for depression Encounter for screening examination for other mental health and behavioral disorders Type 2 diabetes mellitus with stage 3a chronic kidney disease, with long-term current use of insulin (HCC) Chronic pain of both shoulders Pain in joint, shoulder region Moderate persistent asthma without complication (HCC) Unspecified asthma Hypothyroidism, unspecified type Stage 3a chronic kidney disease (HCC) Acute sinusitis, recurrence not specified, unspecified location [facility] Diagnosis Type 2 diabetes mellitus with complication (HCC)- Primary Chest pain, unspecified chest pain type Essential hypertension Unspecified essential hypertension Acquired hypothyroidism Unspecified hypothyroidism Morbid obesity (HCC) Morbid obesity SOB (shortness of breath)- Primary Shortness of breath Diabetes mellitus due to underlying condition without complications (HCC) Secondary diabetes mellitus without mention of complication, not stated as uncontrolled, or unspecified Other chest pain Essential hypertension Unspecified essential hypertension Bruit of right carotid artery Type 2 diabetes mellitus with hyperglycemia (HCC)- Primary Type II or unspecified type diabetes mellitus without mention of complication, not stated as uncontrolled SOB (shortness of breath) Shortness of breath Rash and nonspecific skin eruption Rash and other nonspecific skin eruption Essential hypertension- Primary Unspecified essential hypertension Diabetes mellitus due to underlying condition with complications (HCC) Morbid obesity due to excess calories (HCC) Acquired hypothyroidism Unspecified hypothyroidism SOB (shortness of breath) Shortness of breath KAM (obstructive sleep apnea) Obstructive sleep apnea (adult) (pediatric) KAM (obstructive sleep apnea)- Primary Obstructive sleep apnea (adult) (pediatric) Moderate persistent asthma without complication (HCC) Unspecified asthma SOB (shortness of breath) Shortness of breath Morbid obesity due to excess calories (HCC) Essential hypertension Unspecified essential hypertension Primary insomnia Persistent disorder of initiating or maintaining sleep Diabetes mellitus due to underlying condition with complications (HCC) Breast cancer screening, high risk patient Screening mammogram for high-risk patient Routine health maintenance Routine general medical examination at a health care facility KAM (obstructive sleep apnea)- Primary Obstructive sleep apnea (adult) (pediatric) 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 due to medical condition classified elsewhere SOB (shortness of breath) Shortness of breath Encounter for breast cancer screening other than mammogram Breast screening, unspecified Hoarseness of voice Dysphonia Diabetes mellitus due to underlying condition with complication, without long- term current use of insulin (HCC) Colon cancer screening Special screening for malignant neoplasms, colon KAM (obstructive sleep apnea)- Primary Obstructive sleep apnea (adult) (pediatric) 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 due to medical condition classified elsewhere Diabetes mellitus due to underlying condition with complication, without long- term current use of insulin (HCC) Essential hypertension Unspecified essential hypertension Hypothyroidism, unspecified type Gastroesophageal reflux disease without esophagitis Esophageal reflux Essential hypertension- Primary Unspecified essential hypertension Type 2 diabetes mellitus with stage 3a chronic kidney disease, with long-term current use of insulin (HCC) Hypothyroidism, unspecified type Insomnia, unspecified type RLS (restless legs syndrome) Restless legs syndrome (RLS) Other hyperlipidemia KAM (obstructive sleep apnea) Obstructive sleep apnea (adult) (pediatric) Moderate persistent asthma without complication (HCC) Unspecified asthma Obesity, Class III, BMI >= 40 Morbid obesity Lumbar radicular pain Thoracic or lumbosacral neuritis or radiculitis, unspecified [facility] Diagnosis Type 2 diabetes mellitus with complication (HCC)- Primary Chest pain, unspecified chest pain type Essential hypertension Unspecified essential hypertension Acquired hypothyroidism Unspecified hypothyroidism Morbid obesity (HCC) Morbid obesity SOB (shortness of breath)- Primary Shortness of breath Diabetes mellitus due to underlying condition without complications (HCC) Secondary diabetes mellitus without mention of complication, not stated as uncontrolled, or unspecified Other chest pain Essential hypertension Unspecified essential hypertension Bruit of right carotid artery Type 2 diabetes mellitus with hyperglycemia (HCC)- Primary Type II or unspecified type diabetes mellitus without mention of complication, not stated as uncontrolled SOB (shortness of breath) Shortness of breath Rash and nonspecific skin eruption Rash and other nonspecific skin eruption Essential hypertension- Primary Unspecified essential hypertension Diabetes mellitus due to underlying condition with complications (HCC) Morbid obesity due to excess calories (HCC) Acquired hypothyroidism Unspecified hypothyroidism SOB (shortness of breath) Shortness of breath KAM (obstructive sleep apnea) Obstructive sleep apnea (adult) (pediatric) KAM (obstructive sleep apnea)- Primary Obstructive sleep apnea (adult) (pediatric) Moderate persistent asthma without complication (HCC) Unspecified asthma SOB (shortness of breath) Shortness of breath Morbid obesity due to excess calories (HCC) Essential hypertension Unspecified essential hypertension Primary insomnia Persistent disorder of initiating or maintaining sleep Diabetes mellitus due to underlying condition with complications (HCC) Breast cancer screening, high risk patient Screening mammogram for high-risk patient Routine health maintenance Routine general medical examination at a health care facility KAM (obstructive sleep apnea)- Primary Obstructive sleep apnea (adult) (pediatric) 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 due to medical condition classified elsewhere SOB (shortness of breath) Shortness of breath Encounter for breast cancer screening other than mammogram Breast screening, unspecified Hoarseness of voice Dysphonia Diabetes mellitus due to underlying condition with complication, without long- term current use of insulin (HCC) Colon cancer screening Special screening for malignant neoplasms, colon KAM (obstructive sleep apnea)- Primary Obstructive sleep apnea (adult) (pediatric) 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 due to medical condition classified elsewhere Diabetes mellitus due to underlying condition with complication, without long- term current use of insulin (HCC) Essential hypertension Unspecified essential hypertension Hypothyroidism, unspecified type Gastroesophageal reflux disease without esophagitis Esophageal reflux Essential hypertension- Primary Unspecified essential hypertension Type 2 diabetes mellitus with stage 3a chronic kidney disease, with long-term current use of insulin (HCC) Hypothyroidism, unspecified type Insomnia, unspecified type RLS (restless legs syndrome) Restless legs syndrome (RLS) Other hyperlipidemia KAM (obstructive sleep apnea) Obstructive sleep apnea (adult) (pediatric) Moderate persistent asthma without complication (HCC) Unspecified asthma Obesity, Class III, BMI >= 40 Morbid obesity Degeneration of intervertebral disc of lumbar region with discogenic back pain- Primary Anterolisthesis of lumbar spine documented in this encounter [facility] for referral (narrative)* Diagnostic Procedure Only (Urgent) - Pending Review Specialty Diagnoses / Procedures Referred By Contradha t Referred To Contact XR IMAGING Diagnoses Acute pain of right shoulder Procedures XR SHOULDER [id number] AP/TRUE AP RIGHT RADEX SHOULDER COMPLETE MINIMUM 2 VIEWS Jana Erwin APRN.CNP [address] [place] [address] Xr Imaging Referral ID Status Reason Start Date Expiration Date Visits Requested Visits Authorized [id number] Pending Review Auto-Generat ed Referral 11/24/2021 12/24/2022 1 1 [facility] for referral (narrative)* Diagnostic Procedure Only (Routine) - Authorized Specialty Diagnoses / Procedures Referred By Contac t Referred To Contact BR IMAGING Diagnoses Screening mammogram for breast cancer Procedures MANJULA SCREENING SCREENING MAMMOGRAPHY BI 2-VIEW BREAST INC Scar Landrum MD [address] [place] [address] [facility] [address] [place] [address] Referral ID Status Reason Start Date Expiration Date Visits Requested Visits Authorized [id number] Authorized Auto-Generat ed Referral 03/11/2022 04/10/2023 1 1 [facility] for referral (narrative)* Diagnostic Procedure Only (Routine) - Closed Specialty Diagnoses / Procedures Referred By Contac t Referred To Contact BR IMAGING Diagnoses Screening mammogram for breast cancer Procedures MANJULA SCREENING SCREENING MAMMOGRAPHY BI 2-VIEW BREAST INC Scar Landrum MD [address] [place] [address] [facility] [address] [place] [address] Referral ID Status Reason Start Date Expiration Date V isits Requested Visits Authorized [id number] Closed Auto-Generate d Referral 03/11/2022 04/10/2023 1 1 [facility] for referral (narrative)* Diagnostic Procedure Only (Routine) - Pending Review Specialty Diagnoses / Procedures Referred By Contac t Referred To Contact XR IMAGING Diagnoses Bilateral shoulder pain, unspecified chronicity Procedures XR SHOULDER GENERAL 3V OR MORE AP/TRUE AP/OTHER RIGHT RADEX SHOULDER COMPLETE MINIMUM 2 VIEWS Rodrigue Monte MD [address] [place] [address] Xr Imaging Referral ID Status Reason Start Date Expiration Date Visits Requested Visits Authorized [id number] Pending Review Auto-Generat ed Referral 2 08/16/2023 1 1 * Diagnostic Procedure Only (Routine) - Pending Review Specialty Diagnoses / Procedures [facility] To Contact [facility] Diagnoses Bilateral shoulder pain, unspecified chronicity Procedures XR SHOULDER GENERAL 3V OR MORE AP/TRUE AP/OTHER LEFT RADEX SHOULDER COMPLETE MINIMUM 2 VIEWS Rodrigue Monte MD [address] [place] [address] Xr Imaging Referral ID Status Reason Start Date Expiration Date Visits Requested Visits Authorized [id number] Pending Review Auto-Generat ed Referral 2 08/16/2023 1 1 [facility] Diagnostic Procedure Only (Routine) - Authorized Specialty Diagnoses / Procedures [facility] Referred To Contact BR [facility] Diagnoses Galactorrhea of left breast Subareolar mass of left breast Procedures US BREAST LTD LT US BREAST UNI REAL TIME WITH IMAGE LIMITED Hyun Archer APRN.GLASS CALIBRATOR [address] [place] [address] [facility] Imaging [address] [place] [address] Referral ID Status Reason Start Date Expiration Date Visits Requested Visits Authorized [id number] Authorized Auto-Generat ed Referral 09/11/2022 10/11/2023 1 1 * Diagnostic Procedure Only (Routine) - Authorized Specialty Diagnoses / Procedures [facility] Ref[facility] To Contact BR [facility] Diagnoses Galactorrhea of left breast Subareolar mass of left breast Procedures MANJULA DIAGNOSTIC LT DIAGNOSTIC MAMMOGRAPHY COMPUTER-AIDED DETCJ UNI Hyun Archer APRN.GLASS CALIBRATOR [address] [place] [address] [facility] [address] [place] [address] Referral ID Status Reason Start Date Expiration Date Visits Requested Visits Authorized [id number] Authorized Auto-Generat ed Referral 09/11/2022 10/11/2023 1 1 [facility] for referral (narrative)* Diagnostic Procedure Only (Routine) - Pending Review Specialty Diagnoses / Procedures Referred By Contac t Referred To Contact BR IMAGING Diagnoses Abnormal ultrasound of breast Procedures US BIOPSY BREAST LEFT BX BREAST W/DEVICE 1ST LESION ULTRASOUND OLGA LIDIA Akers, Maggy Fletcher MD [address] [address] Br Imaging [address] [place] [address] Referral ID Status Reason Start Date Expiration Date Visits Requested Visits Authorized [id number] Pending Review Auto-Generat ed Referral 01/06/2023 02/05/2024 1 1 [facility] for referral (narrative)* Diagnostic Procedure Only (Routine) - Closed Specialty Diagnoses / Procedures [facility] Referred To Contact BR [facility] Diagnoses Abnormal screening mammogram Procedures US BREAST LTD LT US BREAST UNI REAL TIME WITH IMAGE LIMITED Juliana Pressley APRN.CNP [address] [place] [address] [facility] Imaging [address] [place] [address] Referral ID Status Reason Start Date Expiration Date V isits Requested Visits Authorized [id number] Closed Auto-Generate d Referral 06/03/2022 07/03/2023 1 1 [facility] for referral (narrative)* Diagnostic Procedure Only (Routine) - Closed Specialty Diagnoses / Procedures [facility] Referred To Contact BR IMAG[facility] Diagnoses Abnormal mammogram Procedures US BREAST LTD LT US BREAST UNI REAL TIME WITH IMAGE LIMITED Juliana Pressley APRN.CNP [address] [place] [address] Br Imaging [address] [place] [address] Referral ID Status Reason Start Date Expiration Date V isits Requested Visits Authorized [id number] Closed Auto-Generate d Referral 12/30/2022 08/02/2023 1 1 [facility] for referral (narrative)* Diagnostic Procedure Only (Routine) - Closed Specialty Diagnoses / Procedures Referred By Contac t Referred To Contact BR IMAGING Diagnoses Galactorrhea of left breast Subareolar mass of left breast Procedures US BREAST LTD LT US BREAST UNI REAL TIME WITH IMAGE LIMITED Hyun Archer APRN.CNP [address] [place] [address] Br Imaging [address] [place] [address] Referral ID Status Reason Start Date Expiration Date V isits Requested Visits Authorized [id number] Closed Auto-Generate d Referral 09/11/2022 10/11/2023 1 1 [facility] for referral (narrative)* Diagnostic Procedure Only (Routine) - Closed Specialty Diagnoses / Procedures Referred By Contac t Referred To Contact BR IMAGING Diagnoses Abnormal ultrasound of breast Procedures US BREAST LTD LEFT US BREAST UNI REAL TIME WITH IMAGE LIMITED Maggy Akers MD [address] [place] [address] Br Imaging [address] [place] [address] Referral ID Status Reason Start Date Expiration Date V isits Requested Visits Authorized [id number] Closed Auto-Generate d Referral 07/02/2023 03/05/2024 1 1 [facility] for referral (narrative)* Diagnostic Procedure Only (Routine) - Authorized Specialty Diagnoses / Procedures Referred By Contac t Referred To Contact BR IMAGING Diagnoses Inconclusive mammogram Procedures US BREAST LTD RIGHT US BREAST UNI REAL TIME WITH IMAGE LIMITED Ann Francois PA-C [address] [place] [address] Br Imaging [address] [place] [address] Referral ID Status Reason Start Date Expiration Date Visits Requested Visits Authorized [id number] Authorized Auto-Generat ed Referral 12/04/2023 12/02/2024 1 1 * Diagnostic Procedure Only (Routine) - Authorized Specialty Diagnoses / Procedures Referred By Serena t Referred To Contact BR IMAGING Diagnoses Inconclusive mammogram Procedures MANJULA DIAGNOSTIC RIGHT DIAGNOSTIC MAMMOGRAPHY COMPUTER-AIDED DETCJ UNI Ann Francois PA-C [address] [place] [address] [facility] Imaging [address] [place] [address] Referral ID Status Reason Start Date Expiration Date Visits Requested Visits Authorized [id number] Authorized Auto-Generat ed Referral 12/04/2023 12/02/2024 1 1 [facility] for referral (narrative)* Diagnostic Procedure Only (Routine) - Closed Specialty Diagnoses / Procedures Referred By Serena valladares Referred To Contact BR IMAGING Diagnoses Inconclusive mammogram Procedures US BREAST LTD RIGHT US BREAST UNI REAL TIME WITH IMAGE LIMITED Ann Francois PA-C [address] [place] [address] Br Imaging [address] [place] [address] Referral ID Status Reason Start Date Expiration Date V isits Requested Visits Authorized [id number] Closed Auto-Generate d Referral 12/04/2023 12/02/2024 1 1 [facility] for referral (narrative)* Diagnostic Procedure Only (Routine) - Closed Specialty Diagnoses / Procedures Referred By [facility] Referred To Contact XR IMAGING Diagnoses Bilateral shoulder pain, unspecified chronicity Procedures XR SHOULDER GENERAL 3V OR MORE AP/TRUE AP/OTHER RIGHT RADEX SHOULDER COMPLETE MINIMUM 2 VIEWS Rodrigue Monte MD [address] [place] [address] [place] [address] Referral ID Status Reason Start Date Expiration Date V isits Requested Visits Authorized [id number] Closed Auto-Generate d Referral 07/17/2022 08/16/2023 1 1 * Diagnostic Procedure Only (Routine) - Closed Specialty Diagnoses / Procedures Referred By Contac t Referred To Contact XR IMAGING Diagnoses Bilateral shoulder pain, unspecified chronicity Procedures XR SHOULDER GENERAL 3V OR MORE AP/TRUE AP/OTHER LEFT RADEX SHOULDER COMPLETE MINIMUM 2 VIEWS Rodrigue Monte MD [address] [place] [address] [place] [address] Referral ID Status Reason Start Date Expiration Date V isits Requested Visits Authorized [id number] Closed Auto-Generate d Referral 07/17/2022 08/16/2023 1 1 [facility] for referral (narrative)* Diagnostic Procedure Only (Urgent) - Closed Specialty Diagnoses / Procedures Referred By Contac t Referred To Contact XR IMAGING Diagnoses Acute pain of right shoulder Procedures XR SHOULDER [id number] AP/TRUE AP RIGHT RADEX SHOULDER COMPLETE MINIMUM 2 VIEWS Jana Erwin APRN.CNP [address] [place] [address] [place] [address] Referral ID Status Reason Start Date Expiration Date V isits Requested Visits Authorized [id number] Closed Auto-Generate d Referral 11/24/2021 12/24/2022 1 1 [facility] for referral (narrative)* Diagnostic Procedure Only (Routine) - New Request Specialty Diagnoses / Procedures Referred By Contac t Referred To Contact BR IMAGING Diagnoses Encounter for screening mammogram for breast cancer Procedures MANJULA SCREENING W HAILEE SCREENING DIGITAL BREAST TOMOSYNTHESIS BI SCREENING MAMMOGRAPHY BI 2-VIEW BREAST INC Cullen Hurtado PA-C [facility] [address] [place] [address] Referral ID Status Reason Start Date Expiration Date Visits Requested Visits Authorized [id number] New Request Auto-Generat ed Referral 09/10/2025 1 1 [facility] for visit Narrative* Diagnostic Procedure Only (Routine) - Closed Specialty Diagnoses / Procedures Referred By Serena t Referred To Contact BR IMAGING Diagnoses Screening mammogram for breast cancer Procedures MANJULA SCREENING SCREENING MAMMOGRAPHY BI 2-VIEW BREAST INC CAD Scar Ceballos MD [address] [place] [address] Br Imaging [address] [place] [address] Referral ID Status Reason Start Date Expiration Date V isits Requested Visits Authorized [id number] Closed Auto-Generate d Referral 03/11/2022 04/10/2023 1 1 [facility] for visit Narrative* Diagnostic Procedure Only (Routine) - Closed Specialty Diagnoses / Procedures Referred By Serena t Referred To Contact BR IMAGING Diagnoses Abnormal screening mammogram Procedures MANJULA DIAGNOSTIC LT DIAGNOSTIC MAMMOGRAPHY COMPUTER-AIDED DETCJ Juliana Crook, BOBBIN STRIPPER.GLASS CALIBRATOR [address] [place] [address] Br Imaging [address] [place] [address] Referral ID Status Reason Start Date Expiration Date V isits Requested Visits Authorized [id number] Closed Auto-Generate d Referral 06/03/2022 07/03/2023 1 1 [facility] for visit Narrative* Diagnostic Procedure Only (Routine) - Closed Specialty Diagnoses / Procedures Referred By Serena t Referred To Contact BR IMAGING Diagnoses Abnormal mammogram Procedures MANJULA DIAGNOSTIC LT DIAGNOSTIC MAMMOGRAPHY COMPUTER-AIDED DETCJ [facility] Services[facility], BOBBIN STRIPPER.GLASS CALIBRATOR [address] [place] [address] Br Imaging [address] [place] [address] Referral ID Status Reason Start Date Expiration Date V isits Requested Visits Authorized [id number] Closed Auto-Generate d Referral 12/30/2022 08/02/2023 1 1 [facility] for visit Narrative* Diagnostic Procedure Only (Routine) - Closed Specialty Diagnoses / Procedures Referred By Serena t Referred To Contact BR IMAGING Diagnoses Galactorrhea of left breast Subareolar mass of left breast Procedures MANJULA DIAGNOSTIC LT DIAGNOSTIC MAMMOGRAPHY COMPUTER-AIDED DETCJ UNI Hyun Archer, BOBBIN STRIPPER.GLASS CALIBRATOR [address] [place] [address] Br Imaging [address] [place] [address] Referral ID Status Reason Start Date Expiration Date V isits Requested Visits Authorized [id number] Closed Auto-Generate d Referral 09/11/2022 10/11/2023 1 1 [facility] for visit Narrative* Diagnostic Procedure Only (Routine) - Closed Specialty Diagnoses / Procedures Referred By Contac t Referred To Contact BR IMAGING Diagnoses Galactorrhea of left breast Subareolar mass of left breast Procedures US BREAST LTD LT US BREAST UNI REAL TIME WITH IMAGE LIMITED Hyun Archer, BOBBIN STRIPPER.GLASS CALIBRATOR [address] [place] [address] Br Imaging [address] [place] [address] Referral ID Status Reason Start Date Expiration Date V isits Requested Visits Authorized [id number] Closed Auto-Generate d Referral 09/11/2022 10/11/2023 1 1 [facility] for visit Narrative* Diagnostic Procedure Only (Routine) - Closed Specialty Diagnoses / Procedures Referred By Contac t Referred To Contact BR IMAGING Diagnoses Abnormal ultrasound of breast Procedures MANJULA DIAGNOSTIC LEFT DIAGNOSTIC MAMMOGRAPHY COMPUTER-AIDED DETCJ UNI Maggy Akers MD [address] [place] [address] Br Imaging [address] [place] [address] Referral ID Status Reason Start Date Expiration Date V isits Requested Visits Authorized [id number] Closed Auto-Generate d Referral 07/02/2023 03/05/2024 1 1 [facility] for visit Narrative* Outpatient Procedure (Routine) - Closed Specialty Diagnoses / Procedures Referred By Contac t Referred To [facility] Diagnoses Exertional dyspnea Procedures ECHO ECHO TTHRC R-T 2D W/WOM-MODE COMPL SPEC&COLR D Meliza Jones PAFina [address] [place] [address] [facility] [place] [address] [place] [address] Referral ID Status Reason Start Date Expiration Date V isits Requested Visits Authorized [id number] Closed Auto-Generate d Referral 07/21/2023 10/19/2023 1 1 [facility] for visit Narrative* Diagnostic Procedure Only (Routine) - Closed Specialty Diagnoses / Procedures Referred By Contac t Referred To Contact BR IMAGING Diagnoses Inconclusive mammogram Procedures MANJULA DIAGNOSTIC RIGHT DIAGNOSTIC MAMMOGRAPHY COMPUTER-AIDED DETCJ UNI Ann Francois PA-C [address] [place] [address] Br Imaging [address] [place] [address] Referral ID Status Reason Start Date Expiration Date V isits Requested Visits Authorized [id number] Closed Auto-Generate d Referral 12/04/2023 12/02/2024 1 1 [facility] for visit Narrative* Diagnostic Procedure Only (Routine) - Closed Specialty Diagnoses / Procedures Referred By Contac t Referred To Contact XR IMAGING Diagnoses Bilateral shoulder pain, unspecified chronicity Procedures XR SHOULDER GENERAL 3V OR MORE AP/TRUE AP/OTHER RIGHT RADEX SHOULDER COMPLETE MINIMUM 2 VIEWS Rodrigue Monte MD [address] [place] [address] [place] [address] Referral ID Status Reason Start Date Expiration Date V isits Requested Visits Authorized [id number] Closed Auto-Generate d Referral 07/17/2022 08/16/2023 1 1 [facility] for visit Narrative* Diagnostic Procedure Only (Urgent) - Closed Specialty Diagnoses / Procedures Referred By Contac t Referred To Contact XR IMAGING Diagnoses Acute pain of right shoulder Procedures XR SHOULDER [id number] AP/TRUE AP RIGHT RADEX SHOULDER COMPLETE MINIMUM 2 VIEWS Jana Erwin APRN.GLASS CALIBRATOR [address] [place] [address] [place] [address] Referral ID Status Reason Start Date Expiration Date V isits Requested Visits Authorized [id number] Closed Auto-Generate d Referral 11/24/2021 12/24/2022 1 1 [facility] for visit Narrative* Diagnostic Procedure Only (Routine) - Closed Specialty Diagnoses / Procedures Referred By Contac t Referred To Contact XR IMAGING Diagnoses Bilateral shoulder pain, unspecified chronicity Procedures XR SHOULDER GENERAL 3V OR MORE AP/TRUE AP/OTHER RIGHT RADEX SHOULDER COMPLETE MINIMUM 2 VIEWS Michelle Smith, BOBBIN STRIPPER.GLASS CALIBRATOR [address] [place] [address] Phone: tel: fax: [place] [address] Referral ID Status Reason Start Date Expiration Date V isits Requested Visits Authorized [id number] Closed Auto-Generate d Referral 11/08/2024 12/08/2025 1 1 [facility] for visit Narrative* Diagnostic Procedure Only (Routine) - Closed Specialty Diagnoses / Procedures Referred By Contac t Referred To Contact XR IMAGING Diagnoses Lumbar radicular pain Procedures XR LUMBAR GENERAL 3V AP/LAT/L5-S1 RADEX SPINE LUMBOSACRAL 2/3 VIEWS Kristin Byrne PA-C [address] [place] [address] Phone: tel: fax: [place] [address] Referral ID Status Reason Start Date Expiration Date V isits Requested Visits Authorized [id number] Closed Auto-Generate d Referral 04/18/2025 05/18/2026 1 1 [facility] Advance Directives No Advanced Directives Records FoundDocuments on File Type Date Recorded 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 Advance Directive(s) 07/14/2020 8:09 AM Documents on File Type Date Recorded 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 Advance Directive(s) 07/14/2020 8:09 AM Advance Directive Response Recorded Date/ Time Living Will No March 12, 2022 10:07am Power of Skoog Machine Operator No March 12 10:07am Advance Directive Response Recorded Date/ Time Living Will No April 30 2:30pm Power of Skoog Machine Operator No April 30 2:30pm Advance Directive Response Recorded Date/ Time Living Will No January 04, 2023 4: 29pm Power of Skoog Machine Operator No January 04, 2023 4:29pm Medications Administered Section Active Administered Medications - up to 3 most recent administrations Medication Order MAR Action Action Date Dose Rate Site fluorescein-benoxinate 0.25-0.4 % 1 Drop (FLURESS) 1 Drop, BOTH EYES, DIRECTED, Starting on Fri02/04/22 at 1430, Until Fri02/05/22 at 022, Administer for applanation tonometry. In the event of a Fluress shortage, administer [place]-Fluor 1 drop into both eyes as directed for applanation tonometry Given 02/04/2022 2:30 PM EDT 1 Drop PHENYLephrine 2.5 % 1 Drop (AK-DILATE, KULWANT-SYNEPHRINE) 1 Drop, BOTH EYES, DIRECTED, Starting on Fri02/04/22 at 1430, Until Fri02/05/22 at 0229, Administer for dilation PROTECT FROM LIGHT Given 02/04/2022 2:30 PM EDT 1 Drop tropicamide 1 % 1 Drop (MYDRIACYL) 1 Drop, BOTH EYES, DIRECTED, Starting on Fri02/04/22 at 1430, Until Fri02/05/22 at 0229, Administer for dilation Given 02/04/2022 2:30 PM EDT 1 Drop Chief Complaint and Reason for Visit Chief Complaint n/v/abd pain Chief Complaint n/v/abd pain LAP ALEXIA Chief Complaint BACK PAIN Reason for Referral Specialty Diagnoses / Procedures Referred By Serena valladares Referred To Contact General Surgery Diagnoses Multiple gallstones Procedures CONSULT TO GENERAL SURGERY OFFICE/OUTPATIENT [facility] [place] 60-74 MINUTES Scar Ceballos MD [address] [place] [address] Referral ID Status Reason Start Date Expiration Date Visits Requested Visits Authorized [id number] Authorized PCP Requested Referral 03/20/2022 03/20/2023 1 1 Specialty Diagnoses / Procedures Referred By Serena valladares Referred To Contact Diagnoses KAM (obstructive sleep apnea) Procedures CONSULT TO SLEEP MEDICINE - ADULT OFFICE/OUTPATIENT [facility] [place] 60-[place] [address] [place] [address] Referral ID Status Reason Start Date Expiration Date Visits Requested Visits Authorized [id number] Authorized PCP Requested Referral 05/01/2022 05/01/2023 1 1 Specialty Diagnoses / Procedures Referred By Contac t Referred To Contact [facility] Diagnoses Chronic pain of both shoulders Procedures CONSULT TO PHYSICAL THERAPY PHYSICAL THERAPY EVALUATION HIGH COMPLEX 45 MINS 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, 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, 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 [address] [place] [address] [facility] [address] [address] Referral ID Status Reason Start Date Expiration Date Visits Requested Visits Authorized [id number] Pending Review Auto-Generat ed Referral 07/09/2022 07/09/2023 1 1 Specialty Diagnoses / Procedures Referred By Contac t Referred To Contact Orthopedics Diagnoses Chronic pain of both shoulders Procedures CONSULT TO ORTHOPAEDICS OFFICE/OUTPATIENT [facility] MDM 60-74 MINUTES 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 Rossana Carpio PT [facility] [address] [address] Referral ID Status Reason Start Date Expiration Date Visits Requested Visits Authorized [id number] Authorized PCP Requested Referral Auto-Generate d Referral 09/28/2022 8 8 Specialty Diagnoses / Procedures Referred By Contac t Referred To Contact Diagnoses Type 2 diabetes mellitus with stage 3a chronic kidney disease, with long-term current use of insulin (HCC) Type 2 diabetes mellitus with stage 3 chronic kidney disease, with long-term current use of insulin (HCC) Ann Francois PA-C [address] [place] [address] Referral ID Status Reason Start Date Expiration Date V isits Requested Visits Authorized [id number] Authorized 08/23/2022 08/23/2022 1 1 Specialty Diagnoses / Procedures Referred By Contac t Referred To Contact Gynecology Diagnoses Nipple discharge in female Procedures CONSULT TO GYNECOLOGY OFFICE/OUTPATIENT [facility] MDM 60-74 MINUTES Ann Francois PA-C [address] [place] [address] Referral ID Status Reason Start Date Expiration Date Visits Requested Visits Authorized [id number] Authorized PCP Requested Referral Auto-Generate d Referral 09/10/2022 09/10/2023 1 1 Specialty Diagnoses / Procedures Referred By Contac t Referred To Contact Diagnoses Type 2 diabetes mellitus with stage 3 chronic kidney disease, with long-term current use of insulin (HCC) nAn Francois PA-C [address] [place] [address] Referral ID Status Reason Start Date Expiration Date V isits Requested Visits Authorized [id number] Pending Review 1 1 Specialty Diagnoses / Procedures Referred By Contac t Referred To Contact Ann Francois PA-C [address] [place] [address] Referral ID Status Reason Start Date Expiration Date V isits Requested Visits Authorized [id number] Pending Review 1 1 Specialty Diagnoses / Procedures Referred By Contac t Referred To Contact Chicho Carter MD [address] [place] [address] Referral ID Status Reason Start Date Expiration Date Visits Re quested Visits Authorized [id number] Closed 1 1 Referral ID Status Reason Start Date Expiration Date Visits Re quested Visits Authorized [id number] Closed 1 1 Summary Purpose Family History No Family History Records FoundNo Family History Records FoundNo Family History Records Found Additional Source Comments Source Comments (unrecognize d section and content) In the event this informatio n is protected by the Federal Confidentiality of Alcohol and Drug Abuse Patient Records regulations: The Federal rules restrict any use of the information to criminally investigate or prosecute any alcohol or drug abuse patient.[facility] the event this information is protected by the Federal Confidentiality of Alcohol and Drug Abuse Patient Records regulations: The Federal rules restrict any use of the information to criminally investigate or prosecute any alcohol or drug abuse patient.[facility] the event this information is protected by the Federal Confidentiality of Alcohol and Drug Abuse Patient Records regulations: The Federal rules restrict any use of the information to criminally investigate or prosecute any alcohol or drug abuse patient.[facility] the event this information is protected by the Federal Confidentiality of Alcohol and Drug Abuse Patient Records regulations: The Federal rules restrict any use of the information to criminally investigate or prosecute any alcohol or drug abuse patient.[facility] the event this information is protected by the Federal Confidentiality of Alcohol and Drug Abuse Patient Records regulations: The Federal rules restrict any use of the information to criminally investigate or prosecute any alcohol or drug abuse patient.[facility] the event this information is protected by the Federal Confidentiality of Alcohol and Drug Abuse Patient Records regulations: The Federal rules restrict any use of the information to criminally investigate or prosecute any alcohol or drug abuse patient.[facility] the event this information is protected by the Federal Confidentiality of Alcohol and Drug Abuse Patient Records regulations: The Federal rules restrict any use of the information to criminally investigate or prosecute any alcohol or drug abuse patient.[facility] the event this information is protected by the Federal Confidentiality of Alcohol and Drug Abuse Patient Records regulations: The Federal rules restrict any use of the information to criminally investigate or prosecute any alcohol or drug abuse patient.[facility]In the event this information is protected by the Federal Confidentiality of Alcohol and Drug Abuse Patient Records regulations: The Federal rules restrict any use of the information to criminally investigate or prosecute any alcohol or drug abuse patient.[facility] HospitalIn the event this information is protected by the Federal Confidentiality of Alcohol and Drug Abuse Patient Records regulations: The Federal rules restrict any use of the information to criminally investigate or prosecute any alcohol or drug abuse patient.[facility] HospitalIn the event this information is protected by the Federal Confidentiality of Alcohol and Drug Abuse Patient Records regulations: The Federal rules restrict any use of the information to criminally investigate or prosecute any alcohol or drug abuse patient.[facility] HospitalIn the event this information is protected by the Federal Confidentiality of Alcohol and Drug Abuse Patient Records regulations: The Federal rules restrict any use of the information to criminally investigate or prosecute any alcohol or drug abuse patient.[facility] HospitalIn the event this information is protected by the Federal Confidentiality of Alcohol and Drug Abuse Patient Records regulations: The Federal rules restrict any use of the information to criminally investigate or prosecute any alcohol or drug abuse patient.[facility] HospitalIn the event this information is protected by the Federal Confidentiality of Alcohol and Drug Abuse Patient Records regulations: The Federal rules restrict any use of the information to criminally investigate or prosecute any alcohol or drug abuse patient.[facility] HospitalIn the event this information is protected by the Federal Confidentiality of Alcohol and Drug Abuse Patient Records regulations: The Federal rules restrict any use of the information to criminally investigate or prosecute any alcohol or drug abuse patient.[facility]In the event this information is protected by the Federal Confidentiality of Alcohol and Drug Abuse Patient Records regulations: The Federal rules restrict any use of the information to criminally investigate or prosecute any alcohol or drug abuse patient.[facility] HospitalIn the event this information is protected by the Federal Confidentiality of Alcohol and Drug Abuse Patient Records regulations: The Federal rules restrict any use of the information to criminally investigate or prosecute any alcohol or drug abuse patient.[facility] HospitalIn the event this information is protected by the Federal Confidentiality of Alcohol and Drug Abuse Patient Records regulations: The Federal rules restrict any use of the information to criminally investigate or prosecute any alcohol or drug abuse patient.[facility] HospitalIn the event this information is protected by the Federal Confidentiality of Alcohol and Drug Abuse Patient Records regulations: The Federal rules restrict any use of the information to criminally investigate or prosecute any alcohol or drug abuse patient.[facility] HospitalIn the event this information is protected by the Federal Confidentiality of Alcohol and Drug Abuse Patient Records regulations: The Federal rules restrict any use of the information to criminally investigate or prosecute any alcohol or drug abuse patient.[facility] HospitalIn the event this information is protected by the Federal Confidentiality of Alcohol and Drug Abuse Patient Records regulations: The Federal rules restrict any use of the information to criminally investigate or prosecute any alcohol or drug abuse patient.[facility] the event this information is protected by the Federal Confidentiality of Alcohol and Drug Abuse Patient Records regulations: The Federal rules restrict any use of the information to criminally investigate or prosecute any alcohol or drug abuse patient.[facility] HospitalIn the event this information is protected by the Federal Confidentiality of Alcohol and Drug Abuse Patient Records regulations: The Federal rules restrict any use of the information to criminally investigate or prosecute any alcohol or drug abuse patient.[facility] HospitalIn the event this information is protected by the Federal Confidentiality of Alcohol and Drug Abuse Patient Records regulations: The Federal rules restrict any use of the information to criminally investigate or prosecute any alcohol or drug abuse patient.[facility] the event this information is protected by the Federal Confidentiality of Alcohol and Drug Abuse Patient Records regulations: The Federal rules restrict any use of the information to criminally investigate or prosecute any alcohol or drug abuse patient.[facility]In the event this information is protected by the Federal Confidentiality of Alcohol and Drug Abuse Patient Records regulations: The Federal rules restrict any use of the information to criminally investigate or prosecute any alcohol or drug abuse patient.[facility]In the event this information is protected by the Federal Confidentiality of Alcohol and Drug Abuse Patient Records regulations: The Federal rules restrict any use of the information to criminally investigate or prosecute any alcohol or drug abuse patient.[facility] HospitalIn the event this information is protected by the Federal Confidentiality of Alcohol and Drug Abuse Patient Records regulations: The Federal rules restrict any use of the information to criminally investigate or prosecute any alcohol or drug abuse patient.[facility]In the event this information is protected by the Federal Confidentiality of Alcohol and Drug Abuse Patient Records regulations: The Federal rules restrict any use of the information to criminally investigate or prosecute any alcohol or drug abuse patient.[facility]In the event this information is protected by the Federal Confidentiality of Alcohol and Drug Abuse Patient Records regulations: The Federal rules restrict any use of the information to criminally investigate or prosecute any alcohol or drug abuse patient.[facility]In the event this information is protected by the Federal Confidentiality of Alcohol and Drug Abuse Patient Records regulations: The Federal rules restrict any use of the information to criminally investigate or prosecute any alcohol or drug abuse patient.[facility]In the event this information is protected by the Federal Confidentiality of Alcohol and Drug Abuse Patient Records regulations: The Federal rules restrict any use of the information to criminally investigate or prosecute any alcohol or drug abuse patient.[facility]In the event this information is protected by the Federal Confidentiality of Alcohol and Drug Abuse Patient Records regulations: The Federal rules restrict any use of the information to criminally investigate or prosecute any alcohol or drug abuse patient.[facility] HospitalIn the event this information is protected by the Federal Confidentiality of Alcohol and Drug Abuse Patient Records regulations: The Federal rules restrict any use of the information to criminally investigate or prosecute any alcohol or drug abuse patient.[facility]In the event this information is protected by the Federal Confidentiality of Alcohol and Drug Abuse Patient Records regulations: The Federal rules restrict any use of the information to criminally investigate or prosecute any alcohol or drug abuse patient.[facility]In the event this information is protected by the Federal Confidentiality of Alcohol and Drug Abuse Patient Records regulations: The Federal rules restrict any use of the information to criminally investigate or prosecute any alcohol or drug abuse patient.[facility] HospitalIn the event this information is protected by the Federal Confidentiality of Alcohol and Drug Abuse Patient Records regulations: The Federal rules restrict any use of the information to criminally investigate or prosecute any alcohol or drug abuse patient.[facility]In the event this information is protected by the Federal Confidentiality of Alcohol and Drug Abuse Patient Records regulations: The Federal rules restrict any use of the information to criminally investigate or prosecute any alcohol or drug abuse patient.[facility]In the event this information is protected by the Federal Confidentiality of Alcohol and Drug Abuse Patient Records regulations: The Federal rules restrict any use of the information to criminally investigate or prosecute any alcohol or drug abuse patient.[facility] HospitalIn the event this information is protected by the Federal Confidentiality of Alcohol and Drug Abuse Patient Records regulations: The Federal rules restrict any use of the information to criminally investigate or prosecute any alcohol or drug abuse patient.[facility]In the event this information is protected by the Federal Confidentiality of Alcohol and Drug Abuse Patient Records regulations: The Federal rules restrict any use of the information to criminally investigate or prosecute any alcohol or drug abuse patient.[facility]In the event this information is protected by the Federal Confidentiality of Alcohol and Drug Abuse Patient Records regulations: The Federal rules restrict any use of the information to criminally investigate or prosecute any alcohol or drug abuse patient.[facility]In the event this information is protected by the Federal Confidentiality of Alcohol and Drug Abuse Patient Records regulations: The Federal rules restrict any use of the information to criminally investigate or prosecute any alcohol or drug abuse patient.[facility]In the event this information is protected by the Federal Confidentiality of Alcohol and Drug Abuse Patient Records regulations: The Federal rules restrict any use of the information to criminally investigate or prosecute any alcohol or drug abuse patient.[facility] HospitalIn the event this information is protected by the Federal Confidentiality of Alcohol and Drug Abuse Patient Records regulations: The Federal rules restrict any use of the information to criminally investigate or prosecute any alcohol or drug abuse patient.[facility]In the event this information is protected by the Federal Confidentiality of Alcohol and Drug Abuse Patient Records regulations: The Federal rules restrict any use of the information to criminally investigate or prosecute any alcohol or drug abuse patient.[facility] HospitalIn the event this information is protected by the Federal Confidentiality of Alcohol and Drug Abuse Patient Records regulations: The Federal rules restrict any use of the information to criminally investigate or prosecute any alcohol or drug abuse patient.[facility] HospitalIn the event this information is protected by the Federal Confidentiality of Alcohol and Drug Abuse Patient Records regulations: The Federal rules restrict any use of the information to criminally investigate or prosecute any alcohol or drug abuse patient.[facility] HospitalIn the event this information is protected by the Federal Confidentiality of Alcohol and Drug Abuse Patient Records regulations: The Federal rules restrict any use of the information to criminally investigate or prosecute any alcohol or drug abuse patient.[facility]In the event this information is protected by the Federal Confidentiality of Alcohol and Drug Abuse Patient Records regulations: The Federal rules restrict any use of the information to criminally investigate or prosecute any alcohol or drug abuse patient.[facility]In the event this information is protected by the Federal Confidentiality of Alcohol and Drug Abuse Patient Records regulations: The Federal rules restrict any use of the information to criminally investigate or prosecute any alcohol or drug abuse patient.[facility]In the event this information is protected by the Federal Confidentiality of Alcohol and Drug Abuse Patient Records regulations: The Federal rules restrict any use of the information to criminally investigate or prosecute any alcohol or drug abuse patient.[facility] HospitalIn the event this information is protected by the Federal Confidentiality of Alcohol and Drug Abuse Patient Records regulations: The Federal rules restrict any use of the information to criminally investigate or prosecute any alcohol or drug abuse patient.[facility] HospitalIn the event this information is protected by the Federal Confidentiality of Alcohol and Drug Abuse Patient Records regulations: The Federal rules restrict any use of the information to criminally investigate or prosecute any alcohol or drug abuse patient.[facility]In the event this information is protected by the Federal Confidentiality of Alcohol and Drug Abuse Patient Records regulations: The Federal rules restrict any use of the information to criminally investigate or prosecute any alcohol or drug abuse patient.[facility]In the event this information is protected by the Federal Confidentiality of Alcohol and Drug Abuse Patient Records regulations: The Federal rules restrict any use of the information to criminally investigate or prosecute any alcohol or drug abuse patient.[facility]In the event this information is protected by the Federal Confidentiality of Alcohol and Drug Abuse Patient Records regulations: The Federal rules restrict any use of the information to criminally investigate or prosecute any alcohol or drug abuse patient.[facility]In the event this information is protected by the Federal Confidentiality of Alcohol and Drug Abuse Patient Records regulations: The Federal rules restrict any use of the information to criminally investigate or prosecute any alcohol or drug abuse patient.[facility]In the event this information is protected by the Federal Confidentiality of Alcohol and Drug Abuse Patient Records regulations: The Federal rules restrict any use of the information to criminally investigate or prosecute any alcohol or drug abuse patient.[facility]In the event this information is protected by the Federal Confidentiality of Alcohol and Drug Abuse Patient Records regulations: The Federal rules restrict any use of the information to criminally investigate or prosecute any alcohol or drug abuse patient.[facility]In the event this information is protected by the Federal Confidentiality of Alcohol and Drug Abuse Patient Records regulations: The Federal rules restrict any use of the information to criminally investigate or prosecute any alcohol or drug abuse patient.[facility]In the event this information is protected by the Federal Confidentiality of Alcohol and Drug Abuse Patient Records regulations: The Federal rules restrict any use of the information to criminally investigate or prosecute any alcohol or drug abuse patient.[facility]In the event this information is protected by the Federal Confidentiality of Alcohol and Drug Abuse Patient Records regulations: The Federal rules restrict any use of the information to criminally investigate or prosecute any alcohol or drug abuse patient.[facility]In the event this information is protected by the Federal Confidentiality of Alcohol and Drug Abuse Patient Records regulations: The Federal rules restrict any use of the information to criminally investigate or prosecute any alcohol or drug abuse patient.[facility]In the event this information is protected by the Federal Confidentiality of Alcohol and Drug Abuse Patient Records regulations: The Federal rules restrict any use of the information to criminally investigate or prosecute any alcohol or drug abuse patient.[facility]In the event this information is protected by the Federal Confidentiality of Alcohol and Drug Abuse Patient Records regulations: The Federal rules restrict any use of the information to criminally investigate or prosecute any alcohol or drug abuse patient.[facility]In the event this information is protected by the Federal Confidentiality of Alcohol and Drug Abuse Patient Records regulations: The Federal rules restrict any use of the information to criminally investigate or prosecute any alcohol or drug abuse patient.[facility]In the event this information is protected by the Federal Confidentiality of Alcohol and Drug Abuse Patient Records regulations: The Federal rules restrict any use of the information to criminally investigate or prosecute any alcohol or drug abuse patient.[facility]In the event this information is protected by the Federal Confidentiality of Alcohol and Drug Abuse Patient Records regulations: The Federal rules restrict any use of the information to criminally investigate or prosecute any alcohol or drug abuse patient.[facility]In the event this information is protected by the Federal Confidentiality of Alcohol and Drug Abuse Patient Records regulations: The Federal rules restrict any use of the information to criminally investigate or prosecute any alcohol or drug abuse patient.[facility] HospitalIn the event this information is protected by the Federal Confidentiality of Alcohol and Drug Abuse Patient Records regulations: The Federal rules restrict any use of the information to criminally investigate or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 Medicine 08/23/22 Emergency Department Relationship Specialty Start Date End Date Ann Francois PA-C [address] [place], [place] [address] PCP - General Family Medicine 08/23/22 Team Status: Active Member Role Status Dates Dr. Scar Ceballos MD Family Provider Active Ann LOVELACE PA Primary Care Provider Active Team Status: Inactive Member Role Status Dates Dr. Eliud Skaggs MD Emergency Provider Active Ann LOVELACE PA Primary Care Provider Active Emergency Department Relationship Specialty Start Date End Date Ann Francois PA-C [address] [place], [place] [address] PCP - General Family Medicine 08/23/22 Emergency Department Relationship Specialty Start Date End Date Ann Francois PA-C [address] [place] [address] PCP - General Family Medicine 08/23/22 Emergency Department Relationship Specialty Start Date End Date Ann Francois PA-C [address] [place] [address] PCP - General Family Medicine 08/23/22 Emergency Department Relationship Specialty Start Date End Date Ann Francois PA-C [address] [place] [address] PCP - General Family Medicine 08/23/22 Emergency Department Relationship Specialty Start Date End Date Ann Francois PA-C [address] [place] [address] PCP - General Family Medicine 08/23/22 Emergency Department Relationship Specialty Start Date End Date Ann Francois PA-C [address] [place] [address] PCP - General Family Medicine 08/23/22 Emergency Department Relationship Specialty Start Date End Date Ann Francois PA-C [address] [facility] [place] [address] PCP - General Family Medicine 08/23/22 Emergency Department Relationship Specialty Start Date End Date Ann Francois PA-C [address] [facility] [place] [address] PCP - General Family Medicine 08/23/22 Emergency Department Relationship Specialty Start Date End Date Ann Francois PA-C [address] [facility] [place] [address] PCP - General Family Medicine 08/23/22 Emergency Department Relationship Specialty Start Date End Date Ann Francois PA-C [address] [facility] [place] [address] PCP - General Family Medicine 08/23/22 Emergency Department Relationship Specialty Start Date End Date Scar Ceballos MD [address] [facility] [place] [address] PCP - General Internal Medicine 12/08/18 08/22/22 Emergency Department Relationship Specialty Start Date End Date Scar Ceballos MD [address] [facility] [place] [address] PCP - General Internal Medicine 12/08/18 08/22/22 Emergency Department Relationship Specialty Start Date End Date Ann Francois PA-C [address] [facility] [place] [address] PCP - General Family Medicine 08/23/22 Emergency Department Relationship Specialty Start Date End Date Ann Francois PA-C [address] [place] [address] PCP - General Family Medicine 08/23/22 Emergency Department Relationship Specialty Start Date End Date Ann Francois PA-C [address] [place] [address] PCP - General Family Medicine 08/23/22 Emergency Department Relationship Specialty Start Date End Date Ann Francois PA-C [address] [place] [address] PCP - General Family Medicine 08/23/22 Emergency Department Relationship Specialty Start Date End Date Ann Francois PA-C [address] [place] [address] PCP - General Family Medicine 08/23/22 Emergency Department Relationship Specialty Start Date End Date Ann Francois PA-C [address] [place] [address] PCP - General Family Medicine 08/23/22 Emergency Department Relationship Specialty Start Date End Date Ann Francois PA-C [address] [place] [address] PCP - General Family Medicine 08/23/22 Emergency Department Relationship Specialty Start Date End Date Ann Francois PA-C [address] [place] [address] PCP - General Family Medicine 08/23/22 Emergency Department Relationship Specialty Start Date End Date Ann Francois PA-C [address] [place] [address] PCP - General Family Medicine 08/23/22 Emergency Department Relationship Specialty Start Date End Date Ann Francois PA-C [address] [facility] [place] [address] PCP - General Family Medicine 08/23/22 Emergency Department Relationship Specialty Start Date End Date Ann Francois PA-C [address] [facility] [place] [place] [address] PCP - General Family Medicine 08/23/22 Emergency Department Relationship Specialty Start Date End Date Ann Francois PA-C [address] [facility] [place] [place] [address] PCP - General Family Medicine 08/23/22 Emergency Department Relationship Specialty Start Date End Date Ann Francois PA-C [address] [facility] [place] [address] PCP - General Family Medicine 08/23/22 Emergency Department Relationship Specialty Start Date End Date Ann Francois PA-C [address] [facility] [place] [place] [address] PCP - General Family Medicine 08/23/22 Emergency Department Relationship Specialty Start Date End Date Ann Francois PA-C [address] [facility] [place] [place] [address] PCP - General Family Medicine 08/23/22 Emergency Department Relationship Specialty Start Date End Date Ann Francois PA-C [address] [facility] [place] [place] [address] PCP - General Family Medicine 08/23/22 Emergency Department Relationship Specialty Start Date End Date Ann Francois PA-C [address] [facility] [place] [place] [address] PCP - General Family Medicine 08/23/22 Emergency Department Relationship Specialty Start Date End Date Ann Francois PA-C [address] [facility] [place] [place] [address] PCP - General Family Medicine 08/23/22 Emergency Department Relationship Specialty Start Date End Date Ann Francois PA-C [address] [facility] [place] [address] PCP - General Family Medicine 08/23/22 Emergency Department Relationship Specialty Start Date End Date Ann Francois PA-C [address] [facility] [place] [address] PCP - General Family Medicine 08/23/22 Emergency Department Relationship Specialty Start Date End Date Ann Francois PA-C [address] [facility] [place] [address] PCP - General Family Medicine 08/23/22 Emergency Department Relationship Specialty Start Date End Date Scar Ceballos MD [address] [facility] [place] [address] PCP - General Internal Medicine 12/08/18 08/22/22 Emergency Department Relationship Specialty Start Date End Date Scar Ceballos MD [address] [facility] [place] [address] PCP - General Internal Medicine 12/08/18 08/22/22 Emergency Department Relationship Specialty Start Date End Date Cullen Francois PA-C PCP - General Family Medicine 08/23/22 Myla Mcadams APRN.GLASS CALIBRATOR [address] [place] [address] Trimmer Loader Family Medicine 08/06/24 Michelle Smith APRN.GLASS CALIBRATOR [address] [facility] [place] [address] Trimmer Loader Family Medicine 08/06/24 Emergency Department Relationship Specialty Start Date End Date Cullen Francois PA-C PCP - General Family Medicine 08/23/22 Myla Mcadams, BOBBIN STRIPPER.GLASS CALIBRATOR [address] [place] [address] Trimmer Loader Family Medicine 08/06/24 Michelle Smith BOBBIN STRIPPER.GLASS CALIBRATOR [address] [facility] [place] [address] Trimmer Loader Family Medicine 08/06/24 Emergency Department Relationship Specialty Start Date End Date Cullen Francois PA-C PCP - General Family Medicine 08/23/22 Myla Mcadams, BOBBIN STRIPPER.GLASS CALIBRATOR [address] [place] [address] Trimmer Loader Family Medicine 08/06/24 Michelle Smith BOBBIN STRIPPER.GLASS CALIBRATOR [address] [facility] [place] [address] Trimmer Loader Family Medicine 08/06/24 Emergency Department Relationship Specialty Start Date End Date Cullen Francois PA-C PCP - General Family Medicine 08/23/22 Myla Mcadams, BOBBIN STRIPPER.GLASS CALIBRATOR [address] [place] [address] Trimmer Loader Family Medicine 08/06/24 Michelle Smith BOBBIN STRIPPER.GLASS CALIBRATOR [address] [facility] [place] [address] Trimmer Loader Family Medicine 08/06/24 Emergency Department Relationship Specialty Start Date End Date Cullen Francois PA-C PCP - General Family Medicine 08/23/22 Myla Mcadams, BOBBIN STRIPPER.GLASS CALIBRATOR [address] [place] [address] Trimmer Loader Family Medicine 08/06/24 Michelle Smith BOBBIN STRIPPER.GLASS CALIBRATOR [address] [facility] [place] [address] [facility]/06/24 Emergency Department Relationship Specialty Start Date End Date Michelle Smith, BOBBIN STRIPPER.GLASS CALIBRATOR [address] [facility] [place] [address] PCP - General Family Medicine 11/08/24 Myla Mcadams, BOBBIN STRIPPER.GLASS CALIBRATOR [address] [place] [address] Trimmer Loader Family Medicine 08/06/24 Michelle Smith, BOBBIN STRIPPER.GLASS CALIBRATOR [address] [facility] [place] [address] [facility] 08/06/24 Emergency Department Relationship Specialty Start Date End Date Michelle Smith BOBBIN STRIPPER.GLASS CALIBRATOR [address] [facility] [place] [address] PCP - General Family Medicine 11/08/24 Myla Mcadams, BOBBIN STRIPPER.GLASS CALIBRATOR [address] [place] [address] Trimmer Loader Family Medicine 08/06/24 Michelle Smith BOBBIN STRIPPER.GLASS CALIBRATOR [address] [place] [address] Trimmer Loader Family [facility] 08/06/24 Emergency Department Relationship Specialty Start Date End Date Michelle Smith BOBBIN STRIPPER.GLASS CALIBRATOR [address] [place] [address] PCP - General Family Medicine 11/08/24 Myla Mcadams, BOBBIN STRIPPER.GLASS CALIBRATOR [address] [place] [address] Trimmer Loader Family [facility] 08/06/24 Michelle Smith BOBBIN STRIPPER.GLASS CALIBRATOR [address] [place] [address] [facility] Emergency Department Relationship Specialty Start Date End Date Michelle Smith BOBBIN STRIPPER.GLASS CALIBRATOR [address] [place] [address] PCP - General Family Medicine 11/08/24 Emergency Department Relationship Specialty Start Date End Date Michelle Smith BOBBIN STRIPPER.GLASS CALIBRATOR [address] [facility] [place] [address] PCP - General Family Medicine 11/08/24 Emergency Department Relationship Specialty Start Date End Date Michelle Smith BOBBIN STRIPPER.GLASS CALIBRATOR [address] [facility] [place] [address] PCP - General Family Medicine 11/08/24 Myla Mcadams, BOBBIN STRIPPER.GLASS CALIBRATOR [address] [place] [address] Trimmer Loader Family Medicine 08/06/24 11/22/24 Michelle Smith, BOBBIN STRIPPER.GLASS CALIBRATOR [address] [facility] [place] [address] Trimmer Loader Family Medicine 08/06/24 11/22/24 Emergency Department Relationship Specialty Start Date End Date Michelle Smith BOBBIN STRIPPER.GLASS CALIBRATOR [address] [facility] [place] [address] PCP - General Family Medicine 11/08/24 Emergency Department Relationship Specialty Start Date End Date Michelle Smith, BOBBIN STRIPPER.GLASS CALIBRATOR [address] [facility] [place] [address] PCP - General Family Medicine 11/08/24 Emergency Department Relationship Specialty Start Date End Date Michelle Smith, BOBBIN STRIPPER.GLASS CALIBRATOR [address] [facility] [place] [address] PCP - General Family Medicine 11/08/24 Emergency Department Relationship Specialty Start Date End Date Michelle Smith, BOBBIN STRIPPER.GLASS CALIBRATOR [address] [facility] [place] [address] PCP - General Family Medicine 11/08/24 Emergency Department Relationship Specialty Start Date End Date Michelle Smith, BOBBIN STRIPPER.GLASS CALIBRATOR [address] [facility] [place] [address] PCP - General Family Medicine 11/08/24 Emergency Department Relationship Specialty Start Date End Date Michelle Smith, BOBBIN STRIPPER.GLASS CALIBRATOR [address] [facility] [place] [address] PCP - General Family Medicine 11/08/24 Emergency Department Relationship Specialty Start Date End Date Michelle Smith, BOBBIN STRIPPER.GLASS CALIBRATOR [address] [place] [address] PCP - General Family Medicine 11/08/24 Emergency Department Relationship Specialty Start Date End Date Michelle Smith, BOBBIN STRIPPER.GLASS CALIBRATOR [address] [facility] [place] [address] PCP - General Family Medicine 11/08/24 Emergency Department Relationship Specialty Start Date End Date Michelle Smith BOBBIN STRIPPER.GLASS CALIBRATOR [address] [place] [address] PCP - General Family Medicine 11/08/24 Emergency Department Relationship Specialty Start Date End Date Michelle Smith BOBBIN STRIPPER.GLASS CALIBRATOR [address] [facility] [place] [address] PCP - General Family Medicine 11/08/24 Emergency Department Relationship Specialty Start Date End Date Michelle Smith BOBBIN STRIPPER.GLASS CALIBRATOR [address] [place] [address] PCP - General Family Medicine 11/08/24 Emergency Department Relationship Specialty Start Date End Date Michelle Smith, BOBBIN STRIPPER.GLASS CALIBRATOR [address] [facility] [place] [address] PCP - General Family Medicine 11/08/24 Goals (unrecognized section and content) Goals may be documented in a n alternate sectionGoals may be documented in an alternate sectionGoals may be documented in an alternate section INFORMATION SOURCE (unrecogn ized section and content) DATE CREATED AUTHOR 02/08/2023 [facility] DATE CREATED AUTHOR AUTHOR'S ORGANIZ ATION 02/05/2024 [facility] DATE CREATED AUTHOR AUTHOR'S ORGANIZ ATION 05/20/2025 [facility] FOR RECORDS PERTAINING TO PATIENTS WHO ARE OR HAVE BEEN ENROLLED IN A CHEMICAL DEPENDENCY/SUBSTANCEABUSE PROGRAM, SOME INFORMATION MAY BE OMITTED. This clinical summary was aggregated from multiple sources. Caution should be exercised in using it in the provision of clinical care. This summary normalizes information from multiple sources, and as a consequence, information in this document may materially change the coding, format and clinical context of patient data. In addition, data may be omitted in some cases. CLINICAL DECISIONS SHOULD BE BASED ON THE PRIMARY CLINICAL RECORDS. [employer] [facility]. provides no warranty or guarantee of the accuracy or completeness of information in this document.
[2025-05-21 16:44] LABS: Anion Gap 14 (5-15); BUN 10 mg/dL (4-19); BUN/Creat Ratio 8.8 RATIO (10-20); Calcium,Total 9.6 mg/dL (7.6-11.0); Carbon Dioxide 21.1 mmol/L (21.0-32.0); Chloride 101 mmol/L (98-108); Estimated Creatinine Clearance 45.87 ml/min (50-250); Glucose 188 mg/dL (70-99); Potassium 4.3 mmol/L (3.3-5.1)
[2025-05-21 17:00] VITALS: BP 120/80; PULSE 80; RESP 16; O2SAT 98
[2025-05-21 17:22] VITALS: BP 140/58; PULSE 64; RESP 18; TEMP 36.1; O2SAT 92
== END 2025-05-21 17:39 | disposition home or self-care (01) ==
PROVIDERS: Emergency Provider Emergency Medicine; PCP Family Medicine; Visit Provider Emergency Medicine
DX: R10.13 Epigastric pain (principal); E11.9 Type 2 diabetes mellitus without complications; K21.00 Gastro-esophageal reflux disease with esophagitis, without bleeding; I10 Essential (primary) hypertension; G47.30 Sleep apnea, unspecified
CPT/HCPCS: 80048; 85025; 96361; 96374; 96375; 99282; A4216; J2405

== ENCOUNTER 2025-05-30 16:17 | Inpatient (IN) | payer MEDICARE, SELFPAY ==
--- OUTSIDE RECORDS SUMMARY | 2025-05-18 13:35 | XMS RPT_ITS ---
Author Name Auto Generated Organization [facility] Care Team Providers Care Candy Roller Name Role Phone SUPPAN, MICHELLE A Primary Care Unavailable MYLA MCADAMS Attending Unavailable SUPPAN, MICHELLE A Attending Unavailable SELF Referring Unavailable CULLEN FRANCOIS Primary Care Unavailable SUPPAN, MICHELLE A Referring Unavailable SUPPAN, MICHELLE A Primary Care Unavailable SUPPAN, MICHELLE A Primary Care Unavailable SUPPAN, MICHELLE A Referring Unavailable SUPPAN, MICHELLE A Primary Care Unavailable VETOVITZ, KRISTIN Attending Unavailable SUPPAN, MICHELLE A Referring Unavailable SUPPAN, MICHELLE A Primary Care Unavailable SUPPAN, MICHELLE A Attending Unavailable SUPPAN, MICHELLE A Primary Care Unavailable SUPPAN, MICHELLE A Referring Unavailable SUPPAN, MICHELLE A Primary Care Unavailable CHICHO BRIAN Referring Unavailable ANISLEY, QARAB KADEEM Attending Unavailable SUPPAN, MICHELLE A Primary Care Unavailable SUPPAN, MICHELLE A Referring Unavailable AINSLEY, QARAB KADEEM Referring Unavailable SUPPAN, MICHELLE A Primary Care Unavailable SUPPAN, MICHELLE A Primary Care Unavailable VETOVITZ, KRISTIN Attending Unavailable SUPPAN, MICHELLE A Referring Unavailable SUPPAN, MICHELLE A Primary Care Unavailable SUPPAN, MICHELLE A Referring Unavailable SUPPAN, MICHELLE A Primary Care Unavailable SUPPAN, MICHELLE A Attending Unavailable SUPPAN, MICHELLE A Primary Care Unavailable VETOVITZ, KRISTIN Referring Unavailable PROBLEMS DATE TYPE CONDITION / CODE ATTENDING STATUS [facility] 05/18/2025 Active Chest heaviness / R07.89(ICD-10) MYLA MCADAMS Active [facility] 05/18/2025 Active Nausea / R11.0(ICD-10) MYLA MCADAMS Active [facility] 05/18/2025 Active Screening for co lee ann cancer / Z12.11(ICD-10) MYLA MCADAMS Active [facility] 05/18/2025 Active Gastritis withou t bleeding, unspecified chronicity, unspecified gastritis type / K29.70(ICD-10) MYLA MCADAMS Active [facility] 05/18/2025 Active Fibromyalgia / M79.7(ICD-10) DONTRELL [facility] Active [facility] 05/18/2025 Active Heartburn / R12(ICD-10) DONTRELL MYLA Active [facility] 07/29/2022 Active Chronic pain of both shoulders / M25.511(ICD-10) AMILCAR CEBALLOSCAROL Calderón Active [facility] 07/29/2022 Active Chronic pain of both shoulders / G89.29(ICD-10) MICHELLE CEBALLOS Active [facility] 07/29/2022 Active Chronic pain of both shoulders / M25.512(ICD-10) MICHELLE CEBALLOS Active [facility] 08/27/2021 Active Moderate persist ent asthma without complication (HCC) / J45.40(ICD-10) LUIS MICHELLE A Active [facility] 03/19/2016 Active Insomnia, unspec ified type / G47.00(ICD-10) LUIS MICHELLE A Active [facility] 05/10/2025 Active Encounter for al reening mammogram for breast cancer / Z12.31(ICD-10) LUIS MICHELLE A Active [facility] 05/10/2025 Active Screening for depression / Z13.31(ICD-10) MICHELLE CEBALLOS Active [facility] 05/10/2025 Active Encounter for al reening examination for other mental health and behavioral disorders / Z13.39(ICD-10) LUIS MICHELLE A Active [facility] 05/10/2025 Active Acute sinusitis, recurrence not specified, unspecified location / J01.90(ICD-10) MICHELLE CEBALLOS Active [facility] 04/29/2025 Active Hyperlipidemia, mixed / E78.2(ICD-10) NA Active [facility] 04/18/2025 Active Primary osteoart hritis of left shoulder / M19.012(ICD-10) COLEEN BYRNEA Active [facility] 04/18/2025 Active Lumbar radicular pain / M54.16(ICD-10) KRISTIN BYRNE Active [facility] 05/01/2022 Active KAM (obstructive sleep apnea) / G47.33(ICD-10) AINSLEYALVINNAIN Active [facility] 03/07/2022 Active Class 3 severe o besity with body mass index (BMI) of 40.0 to 44.9 in adult ([facility]) / E66.813(ICD-10) AINSLEYALVIN KADEEM Active [facility] 03/07/2022 Active Class 3 severe o besity with body mass index (BMI) of 40.0 to 44.9 in adult ([facility]) / Z68.41(ICD-10) AINSLEYMARICHUYRodney KADEEM Active [facility] 04/01/2025 Active Coronary artery disease of [place] heart with stable angina pectoris, unspecified vessel or lesion type / I25.118(ICD-10) AINSLEYMARICHUYB KADEEM Active [facility] 04/01/2025 Active Pulmonary hypert ension (HCC) / I27.20(ICD-10) AINSLEYABBYRAB KADEEM Active [facility] 04/01/2025 Active Dyslipidemia / E78.5(ICD-10) AINSLEYABBYRAB KADEEM Active [facility] 04/01/2025 Active Type 2 diabetes mellitus without ophthalmic manifestations (HCC) / E11.9(ICD-10) AINSLEYABBYRAB KADEEM Active [facility] 04/01/2025 Active Precordial pain / R07.2(ICD-10) AINSLEYABBYRAB KADEEM Active [facility] 03/14/2025 Active Hyperkalemia / E87.5(ICD-10) NA Active [facility] 03/23/2019 Active Other hyperlipid emia / E78.49(ICD-10) MICHELLE CEBALLOS Active [facility] 04/04/2015 Active Hypothyroidism, unspecified type / E03.9(ICD-10) MICHELLE CEBALLOS Active [facility] 04/04/2015 Active Primary hyperten nicole / I10(ICD-10) MICHELLE CEBALLOS Stephane Active [facility] 02/11/2025 Active Hypomagnesemia / E83.42(ICD-10) AMILCAR CEBALLOSCAROL Calderón Active [facility] 02/07/2025 Active Type 2 diabetes mellitus with hyperglycemia, with long-term current use of insulin (HCC) / E11.65(ICD-10) KRISTIN BYRNE Active [facility] 02/07/2025 Active Type 2 diabetes mellitus with hyperglycemia, with long-term current use of insulin (HCC) / Z79.4(ICD-10) KRISTIN BYRNE Active [facility] 02/07/2025 Active Stage 3a chronic kidney disease (HCC) / N18.31(ICD-10) KRISTIN BYRNE Active [facility] 03/07/2022 Active Type 2 diabetes mellitus with stage 3a chronic kidney disease, with long-term current use of insulin (HCC) / E11.22(ICD-10) NA Active [facility] 03/07/2022 Active Type 2 diabetes mellitus with stage 3a chronic kidney disease, with long-term current use of insulin (HCC) / N18.31(ICD-10) NA Active [facility] 03/07/2022 Active Type 2 diabetes mellitus with stage 3a chronic kidney disease, with long-term current use of insulin (HCC) / Z79.4(ICD-10) NA [facility] 11/09/2024 Active Vitamin B12 defi ciency / E53.8(ICD-10) [facility] 11/09/2024 Active Hypothyroidism, acquired / E03.9(ICD-10) NA [facility] 11/08/2024 Active Bilateral should er pain, unspecified chronicity / M25.511(ICD-10) [facility] 11/08/2024 Active Bilateral should er pain, unspecified chronicity / M25.512(ICD-10) [facility] PROCEDURES No Procedure Records Found RESULTS PROGRESS Observed: 05/18/2025 2:45 PM Status: COMPLETED Source: [facility] HNO ID: [id number] Author: MYLA MCADAMS APRN.SKY DIVER Service: ? Author Type: Nurse Practitioner Type: Progress Notes Filed: 05/18/2025 17:32 Note Text: This is a 75 year old female who presents today with: The patient is a 75-year-old female with fibromyalgia, GERD, and chronic dizziness, presenting for evaluation of acute on chronic chest wall pain and persistent nausea and vomiting following initiation of topiramate. HISTORY OF PRESENT ILLNESS: Fibromyalgia: - Chronic pain in chest, shoulders, left arm, left leg, and hips. - Recent trial of topiramate for pain management and weight loss. Chest Pain: - Chronic chest pain attributed to fibromyalgia by parliamentary archivist 1-2 months ago. - Pain worsened significantly after taking topiramate, described as 10 times worse. - Persistent sensation of an elephant sitting on my chest since the episode of vomiting. - Pain exacerbated by coughing and deep breathing post-vomiting episode. EKG - SR with no ectopy or ST changes. No changes from previous. Nausea and Vomiting: - Initiated topiramate on a morning. - Took second dose of topiramate at 22:00, followed by onset of projectile vomiting at 22:30. - Vomiting occurred every 30-60 minutes until 03:00. - No further vomiting since that night, but persistent nausea with eating. GERD: - Chronic heartburn and indigestion. - Reports burning sensation when drinking carbonated beverages. - Taking omeprazole 40 mg daily. PAST MEDICAL HISTORY: PAST MEDICAL HISTORY Diagnosis Date Hypertension Hypothyroidism Insomnia 03/19/2016 Moderate persistent asthma without complication (HCC) 07/11/2015 07/07/15 Methacholine Inhalation Challenge: 35% drop FEV1 at 2.5 mg/mL. Morbid obesity (HCC) 04/04/2015 Patient has morbid obesity. Multiple gallstones 03/20/2022 Resolved with lap choly 05/07/2022 KAM (obstructive sleep apnea) 09/26/2015 [facility] Other hyperlipidemia 03/23/2019 RLS (restless legs syndrome) 02/15/2019 Stable angina pectoris 06/26/2020 Type 2 diabetes mellitus with stage 3 chronic kidney disease, with long-term current use of insulin (HCC) 04/04/2015 Dx: age 51. On metformin and victoza which she does not think works well for her lately She was started on jardiance which made her have suicidal ideation So she stopped the medication. PAST SURGICAL HISTORY Procedure Laterality Date APPENDECTOMY 1957 LAPAROSCOPY DIAGNOSTIC 2000 LEFT HEART CATH,PERCUTANEOUS 07/14/2020 wnl REMOVAL GALLBLADDER 05/07/2022 TONSILLECTOMY AND ADENOIDECTOMY HX 1957 TOTAL ABDOMINAL HYSTERECT W/WO RMVL TUBE OVARY 2000 ALLERGIES Atorvastatin, Dust, Jardiance [Empagliflozin], Mold, Hbegeeh-Krl-Ftf Reductase Inhibitors, and Victoza [Liraglutide] MEDICATIONS Current Outpatient Medications Medication Sig ondansetron orally disintegrating (ZOFRAN ODT) 4 mg disintegrating tablet Take 1 tablet by mouth every 8 hours as needed for nausea/vomiting. cyclobenzaprine (FLEXERIL) 5 mg tablet Take 1 tablet by mouth three times a day. famotidine (PEPCID) 20 mg tablet Take 1 tablet by mouth daily at bedtime. olmesartan (BENICAR) 20 mg tablet Take 1 tablet by mouth once daily. traZODone (DESYREL) 150 mg tablet Take 1 tablet by mouth daily at bedtime. topiramate (TOPAMAX) 25 mg tablet Take 1 tablet by mouth two times a day. amoxicillin (AMOXIL) 500 mg capsule Take 1 capsule by mouth three times a day for 10 days. alogliptin (NESINA) 25 mg tab Take 25 mg by mouth once daily. magnesium oxide (MAG-OX) 400 mg (241.3 mg magnesium) tablet Take 1 tablet by mouth two times a day. insulin glargine (LANTUS U-100 INSULIN) 100 unit/mL injection Inject 40 Units subcutaneously daily at bedtime. metFORMIN (GLUCOPHAGE) 500 mg tablet Take 2 tablets by mouth two times a day with meals. SITagliptin phosphate (JANUVIA) 100 mg tablet Take 1 tablet by mouth once daily. Cyanocobalamin 1,000 mcg TbER Take 1 tablet by mouth once daily. levothyroxine (LEVOXYL) 50 mcg tablet Take 1 tablet by mouth once daily. Take on empty stomach. For Thyroid BIOTIN ORAL Take by mouth. dilTIAZem HCl 360 mg 24 hr capsule Take 1 capsule by mouth once daily. fenofibrate nanocrystallized (TRICOR) 145 mg tablet Take 1 tablet by mouth once daily. fluticasone-salmeterol (WIXELA INHUB) 250-50 mcg/dose inhaler Inhale 1 Puff as instructed two times a day. Rinse and gargle mouth with water after each use. omeprazole (PRILOSEC) 40 mg capsule Take 1 capsule by mouth once daily. Insulin Syringe-Needle U-100 (INSULIN SYRINGE) 1 mL 29 gauge x 1/2 1 Each once daily. albuterol HFA (PROVENTIL HFA, VENTOLIN HFA) 90 mcg/actuation inhaler Inhale 2 Puffs as instructed four times a day as needed for wheezing/shortness of breath. FOR WHEEZING AND SHORTNESS OF BREATH. MULTIVITAMIN ORAL Take by mouth once daily. No current facility-administered medications for this visit. FAMILY HISTORY Adopted: Yes Family history unknown: Yes SOCIAL HISTORY[1] REVIEW OF SYSTEMS Constitutional: (+) fatigue Ears/Nose/Mouth/Throat: (+) ear swelling, (+) throat swelling Cardiovascular: (+) chest pain Gastrointestinal: (+) nausea, (+) heartburn, (+) abdominal pain, (-) vomiting, (-) diarrhea Musculoskeletal: (+) shoulder pain, (+) arm pain, (+) hip pain, (+) leg pain Neurological: (+) dizziness, (+) imbalance Psychiatric: (+) insomnia EXAM: BP 118/68 Pulse 62 Resp 16 SpO2 95% PHYSICAL EXAM: General Appearance: Well appearing, alert, in no acute distress, well-hydrated, well nourished.. Skin: Skin color, texture, turgor normal, no suspicious rashes or lesions. Head: Normocephalic, no masses, lesions, tenderness or abnormalities. Eyes: Anicteric sclera. Pupils are equally round and reactive to light. Extraocular movements are intact. . Ears: External ears normal, canals clear. Normal TMs bilaterally. Oropharynx: Lips, mucosa, and tongue normal, teeth and gums normal, oropharynx normal. Neck: Supple, no adenopathy; thyroid symmetric, normal size, no bruits. Lungs: Lungs clear to auscultation. No wheezing, rhonchi, rales.. Heart: RRR without murmur, gallop, or rubs. No ectopy. Pain reproducible at inferior sternum and epigastric area. Abdomen: Abdomen soft, non-tender. Bowel sounds normal. No masses, organomegaly. Extremities: No deformities, edema, skin discoloration, clubbing or cyanosis. Good capillary refill. . Neurologic: Gait normal. ASSESSMENT/PLAN 1. Chest heaviness (R07.89) 2. Nausea (R11.0) - Chest pain and heaviness significantly worsened after starting topiramate; EKG today showed no acute changes. - Nausea and vomiting began after second dose of topiramate; no further emesis since that episode. - Start Zofran ODT as needed for nausea. - Advised use of topical diclofenac gel or lidocaine patch to chest wall for musculoskeletal pain. - Continue to hold amoxicillin, prednisone, and topiramate. 3. Screening for colon cancer (Z12.11) - Referral to general surgery for upper and lower endoscopy. - Discussed option to request female provider for endoscopy. 4. Gastritis without bleeding, unspecified chronicity, unspecified gastritis type (K29.70) 5. Heartburn (R12) - Chronic nausea and heartburn, worsened after recent medication changes. - Continue omeprazole 40 mg daily. - Start Pepcid at bedtime. 6. Fibromyalgia (M79.7) - Chronic pain in chest, shoulders, arm, leg, and hips. - Adverse reaction to topiramate. - Start Flexeril 5 mg at bedtime. - Follow-up in 1 month to assess response to Flexeril and adjust treatment as needed. Discussed treatment plan and patient voices understanding. Patient's questions answered appropriately. Medications and potential side effects were discussed and patient voices understanding. Return to the office as scheduled or as needed for worsening/no improvement. Myla Mcadams APRN.SKY DIVER Recording using [employer] software for draft documentation of the visit was discussed with the patient/authorized sales representative graphic art; all questions welcomed and answered. Patient/authorized sales representative graphic art agreed to proceed [1] Social History Tobacco Use Smoking status: Never Smokeless tobacco: Never Tobacco comments: NO smoking in childhood home. Spouse smokes pipe, not around patient. Vaping Use Vaping status: Never Used Substance Use Topics Alcohol use: No Drug use: No ECG01 Observed: 05/18/2025 2:35 PM Status: F Source: [facility] Ventricular Rate : 68 BPM Atrial Rate : 68 BPM P-R Interval : 162 ms QRS Duration : 86 ms Q-T Interval : 396 ms QTC Calculation(Bazett) : 421 ms Calculated P [place] : 66 degrees Calculated R [place] : 47 degrees Calculated T [place] : 42 degrees NORMAL SINUS RHYTHM NORMAL ECG Confirmed by MD GIRALDO QARAB ([id number]) on 05/23/2025 3:01:39 PM NAME : CHLOE GUILLORY PID : [id number] : 1950 Gender : Female Race : ORD : Procedure Date : May 18 2025 14:35:21 Edit Date : May 23 2025 15:01:42 Diagnosis: NORMAL SINUS RHYTHM NORMAL ECG Confirmed by MD GIRALDO QARAB ([id number]) on 05/23/2025 3:01:39 PM Test Reason : Location : 136 : [place] Overread By : MD GIRALDO QARAB Edited By : MD GIRALDO QARAB Referred By : Myla Mcadams Acquired by : lelo manrique CNOV Observed: 05/18/2025 2:00 PM Status: COMPLETED Source: [facility] CHLOE GUILLORY ([id number]) 1950 F Date Time Provider Department 05/18/25 2:00 PM [facility] During your visit today, we recorded the following information about you: Pulse Respiration Blood pressure 62/minute 16/minute 118/68 Myla Mcadams APRN.SKY DIVER 05/18/2025 5:32 PM Addendum This is a 75 year old female who presents today with: The patient is a 75-year-old female with fibromyalgia, GERD, and chronic dizziness, presenting for evaluation of acute on chronic chest wall pain and persistent nausea and vomiting following initiation of topiramate. HISTORY OF PRESENT ILLNESS: Fibromyalgia: - Chronic pain in chest, shoulders, left arm, left leg, and hips. - Recent trial of topiramate for pain management and weight loss. Chest Pain: - Chronic chest pain attributed to fibromyalgia by parliamentary archivist 1-2 months ago. - Pain worsened significantly after taking topiramate, described as 10 times worse. - Persistent sensation of an elephant sitting on my chest since the episode of vomiting. - Pain exacerbated by coughing and deep breathing post-vomiting episode. EKG - SR with no ectopy or ST changes. No changes from previous. Nausea and Vomiting: - Initiated topiramate on a morning. - Took second dose of topiramate at 22:00, followed by onset of projectile vomiting at 22:30. - Vomiting occurred every 30-60 minutes until 03:00. - No further vomiting since that night, but persistent nausea with eating. GERD: - Chronic heartburn and indigestion. - Reports burning sensation when drinking carbonated beverages. - Taking omeprazole 40 mg daily. PAST MEDICAL HISTORY: PAST MEDICAL HISTORY Diagnosis Date Hypertension Hypothyroidism Insomnia 03/19/2016 Moderate persistent asthma without complication ([facility]) 07/11/2015 07/07/15 Methacholine Inhalation Challenge: 35% drop FEV1 at 2.5 mg/mL. Morbid obesity ([facility]) 04/04/2015 Patient has morbid obesity. Multiple gallstones 03/20/2022 Resolved with lap choly 05/07/2022 KAM (obstructive sleep apnea) 09/26/2015 DME: [facility] Other hyperlipidemia 03/23/2019 RLS (restless legs syndrome) 02/15/2019 Stable angina pectoris 06/26/2020 Type 2 diabetes mellitus with stage 3 chronic kidney disease, with long-term current use of insulin ([facility]) 04/04/2015 Dx: age 51. On metformin and victoza which she does not think works well for her lately She was started on jardiance which made her have suicidal ideation So she stopped the medication. PAST SURGICAL HISTORY Procedure Laterality Date APPENDECTOMY 1957 LAPAROSCOPY DIAGNOSTIC 2000 LEFT HEART CATH,PERCUTANEOUS 07/14/2020 wnl REMOVAL GALLBLADDER 05/07/2022 TONSILLECTOMY AND ADENOIDECTOMY HX 1957 TOTAL ABDOMINAL HYSTERECT W/WO RMVL TUBE OVARY 2000 ALLERGIES Atorvastatin, Dust, Jardiance [Empagliflozin], Mold, Agvfxfm-Tfc-Amd Reductase Inhibitors, and Victoza [Liraglutide] MEDICATIONS Current Outpatient Medications Medication Sig ondansetron orally disintegrating (ZOFRAN ODT) 4 mg disintegrating tablet Take 1 tablet by mouth every 8 hours as needed for nausea/vomiting. cyclobenzaprine (FLEXERIL) 5 mg tablet Take 1 tablet by mouth three times a day. famotidine (PEPCID) 20 mg tablet Take 1 tablet by mouth daily at bedtime. olmesartan (BENICAR) 20 mg tablet Take 1 tablet by mouth once daily. traZODone (DESYREL) 150 mg tablet Take 1 tablet by mouth daily at bedtime. topiramate (TOPAMAX) 25 mg tablet Take 1 tablet by mouth two times a day. amoxicillin (AMOXIL) 500 mg capsule Take 1 capsule by mouth three times a day for 10 days. alogliptin (NESINA) 25 mg tab Take 25 mg by mouth once daily. magnesium oxide (MAG-OX) 400 mg (241.3 mg magnesium) tablet Take 1 tablet by mouth two times a day. insulin glargine (LANTUS U-100 INSULIN) 100 unit/mL injection Inject 40 Units subcutaneously daily at bedtime. metFORMIN (GLUCOPHAGE) 500 mg tablet Take 2 tablets by mouth two times a day with meals. SITagliptin phosphate (JANUVIA) 100 mg tablet Take 1 tablet by mouth once daily. Cyanocobalamin 1,000 mcg TbER Take 1 tablet by mouth once daily. levothyroxine (LEVOXYL) 50 mcg tablet Take 1 tablet by mouth once daily. Take on empty stomach. For Thyroid BIOTIN ORAL Take by mouth. dilTIAZem HCl 360 mg 24 hr capsule Take 1 capsule by mouth once daily. fenofibrate nanocrystallized (TRICOR) 145 mg tablet Take 1 tablet by mouth once daily. fluticasone-salmeterol (WIXELA INHUB) 250-50 mcg/dose inhaler Inhale 1 Puff as instructed two times a day. Rinse and gargle mouth with water after each use. omeprazole (PRILOSEC) 40 mg capsule Take 1 capsule by mouth once daily. Insulin Syringe-Needle U-100 (INSULIN SYRINGE) 1 mL 29 gauge x 1/2 1 Each once daily. albuterol HFA (PROVENTIL HFA, VENTOLIN HFA) 90 mcg/actuation inhaler Inhale 2 Puffs as instructed four times a day as needed for wheezing/shortness of breath. FOR WHEEZING AND SHORTNESS OF BREATH. MULTIVITAMIN ORAL Take by mouth once daily. No current facility-administered medications for this visit. FAMILY HISTORY Adopted: Yes Family history unknown: Yes SOCIAL HISTORY[1] REVIEW OF SYSTEMS Constitutional: (+) fatigue Ears/Nose/Mouth/Throat: (+) ear swelling, (+) throat swelling Cardiovascular: (+) chest pain Gastrointestinal: (+) nausea, (+) heartburn, (+) abdominal pain, (-) vomiting, (-) diarrhea Musculoskeletal: (+) shoulder pain, (+) arm pain, (+) hip pain, (+) leg pain Neurological: (+) dizziness, (+) imbalance Psychiatric: (+) insomnia EXAM: BP 118/68 Pulse 62 Resp 16 SpO2 95% PHYSICAL EXAM: General Appearance: Well appearing, alert, in no acute distress, well-hydrated, well nourished.. Skin: Skin color, texture, turgor normal, no suspicious rashes or lesions. Head: Normocephalic, no masses, lesions, tenderness or abnormalities. Eyes: Anicteric sclera. Pupils are equally round and reactive to light. Extraocular movements are intact. . Ears: External ears normal, canals clear. Normal TMs bilaterally. Oropharynx: Lips, mucosa, and tongue normal, teeth and gums normal, oropharynx normal. Neck: Supple, no adenopathy; thyroid symmetric, normal size, no bruits. Lungs: Lungs clear to auscultation. No wheezing, rhonchi, rales.. Heart: RRR without murmur, gallop, or rubs. No ectopy. Pain reproducible at inferior sternum and epigastric area. Abdomen: Abdomen soft, non-tender. Bowel sounds normal. No masses, organomegaly. Extremities: No deformities, edema, skin discoloration, clubbing or cyanosis. Good capillary refill. . Neurologic: Gait normal. ASSESSMENT/PLAN 1. Chest heaviness (R07.89) 2. Nausea (R11.0) - Chest pain and heaviness significantly worsened after starting topiramate; EKG today showed no acute changes. - Nausea and vomiting began after second dose of topiramate; no further emesis since that episode. - Start Zofran ODT as needed for nausea. - Advised use of topical diclofenac gel or lidocaine patch to chest wall for musculoskeletal pain. - Continue to hold amoxicillin, prednisone, and topiramate. 3. Screening for colon cancer (Z12.11) - Referral to general surgery for upper and lower endoscopy. - Discussed option to request female provider for endoscopy. 4. Gastritis without bleeding, unspecified chronicity, unspecified gastritis type (K29.70) 5. Heartburn (R12) - Chronic nausea and heartburn, worsened after recent medication changes. - Continue omeprazole 40 mg daily. - Start Pepcid at bedtime. 6. Fibromyalgia (M79.7) - Chronic pain in chest, shoulders, arm, leg, and hips. - Adverse reaction to topiramate. - Start Flexeril 5 mg at bedtime. - Follow-up in 1 month to assess response to Flexeril and adjust treatment as needed. Discussed treatment plan and patient voices understanding. Patient's questions answered appropriately. Medications and potential side effects were discussed and patient voices understanding. Return to the office as scheduled or as needed for worsening/no improvement. Myla Mcadams APRN.SKY DIVER Recording using [employer] software for draft documentation of the visit was discussed with the patient/authorized sales representative graphic art; all questions welcomed and answered. Patient/authorized sales representative graphic art agreed to proceed [1] Social History Tobacco Use Smoking status: Never Smokeless tobacco: Never Tobacco comments: NO smoking in childhood home. Spouse smokes pipe, not around patient. Vaping Use Vaping status: Never Used Substance Use Topics Alcohol use: No Drug use: No Myla Mcadams APRN.SKY DIVER 05/18/2025 2:53 PM Addendum Start the famotidine at bedtime. Try the flexeril at bedtime to help w/ fibro. Schedule w/ general surgery. You can take the ondansetron as needed for nausea. You can try topical medications (voltaren gel or salan pas patches) to the chest wall to see if that helps with pain. Recheck in a month. Allergies As of Date: 05/18/2025 Noted Allergy Reaction ATORVASTATIN 11/08/2024 17 - Myalgia Comments: Craps in all muscles DUST 09/26/2015 3 - Cough JARDIANCE (EMPAGLIFLOZIN) 01/27/2018 14 - Other: See Comments Comments: Became suicidal MOLD 03/19/2016 12 - Shortness of Breath [id number]-SZI-GNY REDUCTASE INHIBIT*04/04/2015 17 - Myalgia VICTOZA (LIRAGLUTIDE) 01/27/2018 14 - Other: See Comments Comments: Thinks she had thyroid issues from it. Date Reviewed: 05/18/2025 Reviewed by: Clinton Manrique LPN - Fully Assessed Reason for Visit: Acute Visit [896] Cmt: Chest pain that occurred after taking topamax Primary Visit Diagnosis:Chest heaviness [R07.89] Other Visit Diagnoses:Nausea [R11.0] Screening for colon cancer [Z12.11] Gastritis without bleeding, unspecified chronicity, unspecified gastritis type [K29.70] Fibromyalgia [M79.7] Heartburn [R12] Order(s):ECG COMPLETE [ECG01] Order #: [id number] ondansetron orally disintegrating (ZOFRAN ODT) 4 mg disintegrating tabletTake 1 tablet by mouth every 8 hours as needed for nausea/vomiting.Disp: 20 tabletRfl: 1 cyclobenzaprine (FLEXERIL) 5 mg tabletTake 1 tablet by mouth three times a day.Disp: 30 tabletRfl: 1 famotidine (PEPCID) 20 mg tabletTake 1 tablet by mouth daily at bedtime.Disp: 30 tabletRfl: 1 CONSULT TO GENERAL SURGERY [9011] Order #: [id number]: 1 FUTURE Prescriptions as of 05/18/2025 - ondansetron orally disintegrating (ZOFRAN ODT) 4 mg disintegrating tablet Take 1 tablet by mouth every 8 hours as needed for nausea/vomiting. - cyclobenzaprine (FLEXERIL) 5 mg tablet Take 1 tablet by mouth three times a day. - famotidine (PEPCID) 20 mg tablet Take 1 tablet by mouth daily at bedtime. - olmesartan (BENICAR) 20 mg tablet Take 1 tablet by mouth once daily. - traZODone (DESYREL) 150 mg tablet Take 1 tablet by mouth daily at bedtime. - topiramate (TOPAMAX) 25 mg tablet Take 1 tablet by mouth two times a day. - amoxicillin (AMOXIL) 500 mg capsule Take 1 capsule by mouth three times a day for 10 days. - alogliptin (NESINA) 25 mg tab Take 25 mg by mouth once daily. - magnesium oxide (MAG-OX) 400 mg (241.3 mg magnesium) tablet Take 1 tablet by mouth two times a day. - insulin glargine (LANTUS U-100 INSULIN) 100 unit/mL injection Inject 40 Units subcutaneously daily at bedtime. - metFORMIN (GLUCOPHAGE) 500 mg tablet Take 2 tablets by mouth two times a day with meals. - SITagliptin phosphate (JANUVIA) 100 mg tablet Take 1 tablet by mouth once daily. - Cyanocobalamin 1,000 mcg TbER Take 1 tablet by mouth once daily. - levothyroxine (LEVOXYL) 50 mcg tablet Take 1 tablet by mouth once daily. Take on empty stomach. For Thyroid - BIOTIN ORAL Take by mouth. - dilTIAZem HCl 360 mg 24 hr capsule Take 1 capsule by mouth once daily. - fenofibrate nanocrystallized (TRICOR) 145 mg tablet Take 1 tablet by mouth once daily. - fluticasone-salmeterol (WIXELA INHUB) 250-50 mcg/dose inhaler Inhale 1 Puff as instructed two times a day. Rinse and gargle mouth with water after each use. - omeprazole (PRILOSEC) 40 mg capsule Take 1 capsule by mouth once daily. - Insulin Syringe-Needle U-100 (INSULIN SYRINGE) 1 mL 29 gauge x 1/2 1 Each once daily. - albuterol HFA (PROVENTIL HFA, VENTOLIN HFA) 90 mcg/actuation inhaler Inhale 2 Puffs as instructed four times a day as needed for wheezing/shortness of breath. FOR WHEEZING AND SHORTNESS OF BREATH. - MULTIVITAMIN ORAL Take by mouth once daily. Meds Comments as of 06/07/2015: Patient has broken out recently feel like it is from her [place] Problem List As Of Date 05/18/2025 Noted Resolved Type 2 diabetes mellitus with stage 3a chronic *04/04/2015 Hypertension [I10] 04/04/2015 Hypothyroidism [E03.9] 04/04/2015 Morbid obesity (HCC) [E66.01] 04/04/2015 03/23/2019 Moderate persistent asthma without complication*07/11/2015 KAM (obstructive sleep apnea) CPAP intolerant [*09/26/2015 Insomnia [G47.00] 03/19/2016 RLS (restless legs syndrome) [G25.81] 02/15/2019 Kidney disease [N28.9] 03/23/2019 07/06/2019 Class 3 severe obesity with body mass index (BM*03/23/2019 Edema [R60.9] 03/23/2019 Other hyperlipidemia [E78.49] 03/23/2019 Stable angina pectoris [I20.89] 06/26/2020 04/01/2025 SOB (shortness of breath) [R06.02] 07/14/2020 05/01/2022 Multiple gallstones [K80.20] 03/20/2022 04/01/2023 Chronic pain of both shoulders [M25.511, G89.29*07/29/2022 Other instructions from your clinician: Start the famotidine at bedtime. Try the flexeril at bedtime to help w/ fibro. Schedule w/ general surgery. You can take the ondansetron as needed for nausea. You can try topical medications (voltaren gel or salan pas patches) to the chest wall to see if that helps with pain. Recheck in a month. Prescriptions ordered this encounter Disp Refills Start End ONDANSETRON 4 MG DISINTEGRATING TABL* 20 t* 1 05/18/2025 Route: PO Sig: Take 1 tablet by mouth every 8 hours as needed for nausea/vomiting. CYCLOBENZAPRINE 5 MG TABLET 30 t* 1 05/18/2025 Route: PO Sig: Take 1 tablet by mouth three times a day. FAMOTIDINE 20 MG TABLET 30 t* 1 05/18/2025 Route: PO Sig: Take 1 tablet by mouth daily at bedtime. Level of Service: OFFICE/OUTPATIENT ESTABLISHED MOD [facility] 30 MIN [57024] Additional E/M codes: VISIT CPLX INHERENT [facility]AREBEKAHM ASSOC WITH MED * Encounter Status:Closed by MYLA MCADAMS on 05/18/25 CHUCK Observed: 05/17/2025 12:00 AM Status: COMPLETED Source: [facility] CHLOE GUILLORY ([id number]) 1950 F Date Time Provider Department 05/17/25 MICHELLE CEBALLOS During your visit today, we recorded the following information about you: Micky Cee RN 05/17/2025 11:18 AM Signed Reason for Conversation Medication Problem, Fatigue, and chest pressure Background Pt saw Alaina Ceballos last Thursday 05/10. Pt was prescribed Topamax, an antibiotic and steroids at that visit. Topamax was for pt's Fibromyalgia and weight loss. Antibiotic and medrol taper pack were for acute sinusitis. Pt did not grape picker any of these meds until the . States she took the first doses of these meds at 10 am last . Took 6 Prednisone tablets at that time. At 8 pm that same evening, pt started feeling really bad . States she started feeling very nauseous and the chest discomfort she normally has, worsened. At 10 pm that night, pt states she took her second Topamax pill. At 1030 pm, she started having severe projectile vomiting every 30 mins-1 hour until 3 am. Her normal chest pressure got 10x worse and she feels like she has an elephant sitting on her chest. That pain has continued since then. Also pt states she has felt extreme weakness since then as well. Pt denies eating any spoiled food or feeling like it was the flu. Pt wondering if the Topamax interfered with her Metformin and she had too much lactic acid. Pt states she has some shortness of breath but that is normal for her and it is no worse. Pt saw her parliamentary archivist on 04/01 for the chest discomfort she was having and states he told her that her heart is fine and that discomfort is probably from her fibromyalgia. (See visit note). Per his instructions, pt was to notify him of any changes in pain quality such as heaviness or pressure as that would warrant further evaluation. Called pt back and recommended that pt go to ER to be evaluated. Pt hesitant and does not want to do that. Instructed her to call her parliamentary archivist's office to notify him of this worsened chest discomfort. Pt given an appt with Myla Mcadams for tomorrow. Offered morning and pt requested afternoon. Disposition See PCP Within 24 Hours, See More Appropriate Guideline Reason for Disposition Chest pain [1] MODERATE weakness (i.e., interferes with work, school, normal activities) AND [2] persists > 3 days 1. LOCATION: between her breasts and below them-sternum area. Describes as feeling like an elephant is sitting on her chest. 2. RADIATION: denies radiation of discomfort. 3. ONSET: Chest pain/pressure for years but worsened last . States it is 10 times worse than before. Pt saw her parliamentary archivist in [facility] a couple mons ago for the discomfort. He told her he felt the pain she was having was from her fibromyalgia and that her heart is okay. 4. PATTERN: constant since last . Denies worsening with activity. Hurts worse when she attempts to take a deep breath. 5. DURATION: constant 6. SEVERITY: 5/10 currently. When asked if chest pain wakes her up, she states her pain from fibromyalgia wakes me up all night long - MILD (1-3): Doesn't interfere with normal activities. - MODERATE (4-7): Interferes with normal activities or awakens from sleep. - SEVERE (8-10): Excruciating pain, unable to do any normal activities. 7. CARDIAC RISK FACTORS: diabetes, high blood pressure, dyslipidemia, stable angina, obstructive coronary disease 8. PULMONARY RISK FACTORS: asthma 9. CAUSE: pt states parliamentary archivist told her that it is probably her fibromyalgia but pt unsure why it is worse since last unless it is from soreness from her severe vomiting. 10. OTHER SYMPTOMS: Pt still having some mild dizziness off and on and complaining of extreme weakness and fatigue. Denies nausea and vomiting, sweating, fever, or cough at this time. See note for c/o n/v AND sweating that occurred last the . 11. : n/a 1. DESCRIPTION: States she has no energy and has to force herself to do dishes. Has not been out of the house since the episode of extreme vomiting last the . Since that evening, pt states she feels so weak and fatigued. 2. SEVERITY: moderate as she is able to get up and go to the bathroom. - MILD (0-3): Feels weak or tired, but does not interfere with work, school or normal activities. - MODERATE (4-7): Able to stand and walk; weakness interferes with work, school, or normal activities. - SEVERE (8-10): Unable to stand or walk; unable to do usual activities. 3. ONSET: last evening the . 4. CAUSE: pt unsure 5. NEW MEDICINES: Yes see note regarding Topamax, antibiotic AND steroids. 6. OTHER SYMPTOMS: c/o chest pressure-see other triage ntoe. Williams any fever, cough, nausea or vomiting, or diarrhea. 7. : n/a Negative: [1] MODERATE weakness (i.e., interferes with work, school, normal activities) AND [2] cause unknown (Exceptions: Weakness from acute minor illness or poor fluid intake; weakness is chronic and not worse.) Pt has had since last evening. Protocols Used Chest Iquu-DMMIS-ZG Weakness (Generalized) and Wfuiowh-ZHUFD-TK Micky Cee RN 05/17/2025 11:18 AM Signed Noticed Myla had a cancellation for 120 pm today. Called pt to have her come in today and pt refused. Encouraged her to come in and pt states she can't. She will keep her appt tomorrow. Allergies As of Date: 05/17/2025 Noted Allergy Reaction ATORVASTATIN 11/08/2024 17 - Myalgia Comments: Craps in all muscles DUST 09/26/2015 3 - Cough JARDIANCE (EMPAGLIFLOZIN) 01/27/2018 14 - Other: See Comments Comments: Became suicidal MOLD 03/19/2016 12 - Shortness of Breath BEHTVSC-EHR-ZUT REDUCTASE INHIBIT*04/04/2015 17 - Myalgia VICTOZA (LIRAGLUTIDE) 01/27/2018 14 - Other: See Comments Comments: Thinks she had thyroid issues from it. Date Reviewed: 04/18/2025 Reviewed by: Hyun Mata MA - Fully Assessed Reason for Visit: Medication Problem [65] Fatigue [46] chest pressure [Other] Prescriptions as of 05/17/2025 - olmesartan (BENICAR) 20 mg tablet Take 1 tablet by mouth once daily. - traZODone (DESYREL) 150 mg tablet Take 1 tablet by mouth daily at bedtime. - topiramate (TOPAMAX) 25 mg tablet Take 1 tablet by mouth two times a day. - amoxicillin (AMOXIL) 500 mg capsule Take 1 capsule by mouth three times a day for 10 days. - alogliptin (NESINA) 25 mg tab Take 25 mg by mouth once daily. - magnesium oxide (MAG-OX) 400 mg (241.3 mg magnesium) tablet Take 1 tablet by mouth two times a day. - insulin glargine (LANTUS U-100 INSULIN) 100 unit/mL injection Inject 40 Units subcutaneously daily at bedtime. - metFORMIN (GLUCOPHAGE) 500 mg tablet Take 2 tablets by mouth two times a day with meals. - SITagliptin phosphate (JANUVIA) 100 mg tablet Take 1 tablet by mouth once daily. - Cyanocobalamin 1,000 mcg TbER Take 1 tablet by mouth once daily. - levothyroxine (LEVOXYL) 50 mcg tablet Take 1 tablet by mouth once daily. Take on empty stomach. For Thyroid - BIOTIN ORAL Take by mouth. - dilTIAZem HCl 360 mg 24 hr capsule Take 1 capsule by mouth once daily. - fenofibrate nanocrystallized (TRICOR) 145 mg tablet Take 1 tablet by mouth once daily. - fluticasone-salmeterol (WIXELA INHUB) 250-50 mcg/dose inhaler Inhale 1 Puff as instructed two times a day. Rinse and gargle mouth with water after each use. - omeprazole (PRILOSEC) 40 mg capsule Take 1 capsule by mouth once daily. - Insulin Syringe-Needle U-100 (INSULIN SYRINGE) 1 mL 29 gauge x 1/2 1 Each once daily. - albuterol HFA (PROVENTIL HFA, VENTOLIN HFA) 90 mcg/actuation inhaler Inhale 2 Puffs as instructed four times a day as needed for wheezing/shortness of breath. FOR WHEEZING AND SHORTNESS OF BREATH. - MULTIVITAMIN ORAL Take by mouth once daily. Meds Comments as of 06/07/2015: Patient has broken out recently feel like it is from her Trazadone Problem List As Of Date 05/17/2025 Noted Resolved Type 2 diabetes mellitus with stage 3a chronic *04/04/2015 Hypertension [I10] 04/04/2015 Hypothyroidism [E03.9] 04/04/2015 Morbid obesity (HCC) [E66.01] 04/04/2015 03/23/2019 Moderate persistent asthma without complication*07/11/2015 KAM (obstructive sleep apnea) CPAP intolerant [*09/26/2015 Insomnia [G47.00] 03/19/2016 RLS (restless legs syndrome) [G25.81] 02/15/2019 Kidney disease [N28.9] 03/23/2019 07/06/2019 Class 3 severe obesity with body mass index (BM*03/23/2019 Edema [R60.9] 03/23/2019 Other hyperlipidemia [E78.49] 03/23/2019 Stable angina pectoris [I20.89] 06/26/2020 04/01/2025 SOB (shortness of breath) [R06.02] 07/14/2020 05/01/2022 Multiple gallstones [K80.20] 03/20/2022 04/01/2023 Chronic pain of both shoulders [M25.511, G89.29*07/29/2022 Disposition Location/POS Recorded See PCP Within 24 H* 10:54 AM 05/17/25 See More Appropriat* 10:52 AM 05/17/25 What would patient/caregiver have done without intervention? Unknown [8] Patient/Caregiver understands and will follow disposition? Yes, with modifications [53] Encounter Status:Closed by MICKY CEE on 05/17/25 XR LUMBAR 3V AP/LAT/L5-S1 Observed: 05/2025 12:42 PM Status: F Source: [facility] * * *Final Report* * * DATE OF EXAM: May 10 2025 12:42PM WOX [id number] - XR LUMBAR 3V AP/LAT/L5-S1 / PROCEDURE REASON: Lumbar radicular pain * * * * Physician Interpretation * * * * EXAMINATION / TECHNIQUE: XR LUMBAR 3V AP/LAT/L5-S1 HISTORY: Lumbar radicular pain Lumbar radicular pain COMPARISON: None. RESULT: Counting reference: Lumbosacral junction. For the purposes of this report, L4-5 is considered the level of the iliac crest and assume there are 5 lumbar-type vertebrae. Anatomic variant: None. Mild leftward curvature of the thoracolumbar spine. Vertebral body heights are maintained. Grade 1 anterolisthesis L4 on L5. Moderate to severe multilevel degenerative disc disease. Lower lumbar facet hypertrophy. IMPRESSION: Degenerative changes as described. Supervisor Tower: PSC[facility] Transcribe Date/Time: May 16 2025 6:29P Dictated by : MIGUELITO DUNBAR MD This examination was interpreted and the report reviewed and electronically signed by: MIGUELITO DUNBAR MD on May 16 2025 6:30PM EST [id number] Observed: 05/10/2025 12:20 PM Status: COMPLETED Source: [facility] HNO ID: [id number] Author: SONIA MUNOZ Tech Service: ? Author Type: Landing Scaler Type: Progress Notes Filed: 05/10/2025 12:42 Note Text: Radiology Service Progress Note PATIENT NAME: Chloe Guillory DATE OF SERVICE: May 10, 2025 TIME: 12:41 PM PATIENT IDENTITY VERIFICATION COMPLETED USING TWO (2) IDENTIFIERS: Name and Date of confirmed by patient verbally. FALL SCREENING: Has the patient had 2 falls in the last year or 1 fall with injury or currently using an Ambulatory Assistive Device (Walker, Cane, Wheelchair, Crutches, etc.)? No PATIENT GENDER DATA: Assigned female at . status: status: NO. PATIENT RELEVANT IMPLANT DATA REVIEWED: Yes PATIENT PRESENTS WITH AN IMPLANTABLE OR ATTACHED RESEARCH AIDE: No RADIOLOGY DEPARTMENT: General X-ray: Exam(s) Completed: Spine X-Ray(s): Lumbar AP / LAT / L5-S1 PERIPHERAL IV DATA: Not applicable SIGNED BY: Daniela Tinsley May 10, 2025 12:41 PM PROGRESS Observed: 05/10/2025 11:36 AM Status: COMPLETED Source: [facility] HNO ID: [id number] Author: MICHELLE CEBALLOS APRN.SKY DIVER Service: ? Author Type: Nurse Practitioner Type: Progress Notes Filed: 05/10/2025 11:59 Note Text: This is a 75 year old female who presents today with: Patient presents with: 6 Month Exam HISTORY OF PRESENT ILLNESS: Chloe Guillory is a 75 year old female. Patient presents with: 6 Month Exam The patient is a 75-year-old female with type 2 diabetes mellitus, anemia, diabetic peripheral neuropathy, and fibromyalgia, presenting for follow-up. DM: Reports overall feeling well. Medication side effects: No. Home sugar checks: yes- 100 fasting Hypoglycemic spells: Yes. Watching diet: Yes. Unexpected weight loss: No. Polyuria, polydipsia: No. Vision Changes: Yes. Foot lesions or numbness or pain: No. Diabetes: - Blood glucose levels: AM <100 mg/dL; PM <150 mg/dL. - No issues with current medication regimen. - Chloe experiences occasional hypoglycemia, with lowest reading at 70 mg/dL; managed by eating. - Adheres to dietary restrictions; reports minimal food intake to facilitate weight loss. - Denies polydipsia or polyuria. - Reports worsening vision; has not scheduled an eye exam. - Persistent paresthesia in feet. - Recent cardiology evaluation noted good cardiac function; parliamentary archivist suspects fibromyalgia as the etiology of chest pain. Depression: - Chloe reports anhedonia and feelings of hopelessness since her 's group home. - has COPD, limiting outdoor activities and travel. - Describes life as sucks since he retired. - Denies anxiety or excessive worry. Chronic Pain: - Chloe reports chronic pain in shoulders and hips, with radiation down the arm and leg. - Pain disrupts sleep. - Previous cortisone injection in shoulder; awaiting back x-ray. Dyspnea: - Chloe reports worsening dyspnea and dizziness. - Denies cough or wheezing. - Experiences mild edema in the left leg. - Unable to lie supine; sleeps on stomach or side. - Denies nausea, emesis, diarrhea, constipation, dysuria, or hematuria. PAST MEDICAL HISTORY: PAST MEDICAL HISTORY Diagnosis Date Hypertension Hypothyroidism Insomnia 03/19/2016 Moderate persistent asthma without complication ([facility]) 07/11/2015 07/07/15 Methacholine Inhalation Challenge: 35% drop FEV1 at 2.5 mg/mL. Morbid obesity ([facility]) 04/04/2015 Patient has morbid obesity. Multiple gallstones 03/20/2022 Resolved with lap choly 05/07/2022 KAM (obstructive sleep apnea) 09/26/2015 DME: [facility] Other hyperlipidemia 03/23/2019 RLS (restless legs syndrome) 02/15/2019 Stable angina pectoris 06/26/2020 Type 2 diabetes mellitus with stage 3 chronic kidney disease, with long-term current use of insulin ([facility]) 04/04/2015 Dx: age 51. On metformin and victoza which she does not think works well for her lately She was started on jardiance which made her have suicidal ideation So she stopped the medication. PAST SURGICAL HISTORY Procedure Laterality Date APPENDECTOMY 1957 LAPAROSCOPY DIAGNOSTIC 2000 LEFT HEART CATH,PERCUTANEOUS 07/14/2020 wnl REMOVAL GALLBLADDER 05/07/2022 TONSILLECTOMY AND ADENOIDECTOMY HX 1957 TOTAL ABDOMINAL HYSTERECT W/WO RMVL TUBE OVARY 2000 ALLERGIES Atorvastatin, Dust, Jardiance [Empagliflozin], Mold, Xlskshd-Ugi-Taa Reductase Inhibitors, and Victoza [Liraglutide] MEDICATIONS Current Outpatient Medications Medication Sig alogliptin (NESINA) 25 mg tab Take 25 mg by mouth once daily. magnesium oxide (MAG-OX) 400 mg (241.3 mg magnesium) tablet Take 1 tablet by mouth two times a day. insulin glargine (LANTUS U-100 INSULIN) 100 unit/mL injection Inject 40 Units subcutaneously daily at bedtime. metFORMIN (GLUCOPHAGE) 500 mg tablet Take 2 tablets by mouth two times a day with meals. SITagliptin phosphate (JANUVIA) 100 mg tablet Take 1 tablet by mouth once daily. Cyanocobalamin 1,000 mcg TbER Take 1 tablet by mouth once daily. levothyroxine (LEVOXYL) 50 mcg tablet Take 1 tablet by mouth once daily. Take on empty stomach. For Thyroid BIOTIN ORAL Take by mouth. dilTIAZem HCl 360 mg 24 hr capsule Take 1 capsule by mouth once daily. fenofibrate nanocrystallized (TRICOR) 145 mg tablet Take 1 tablet by mouth once daily. fluticasone-salmeterol (WIXELA INHUB) 250-50 mcg/dose inhaler Inhale 1 Puff as instructed two times a day. Rinse and gargle mouth with water after each use. omeprazole (PRILOSEC) 40 mg capsule Take 1 capsule by mouth once daily. Insulin Syringe-Needle U-100 (INSULIN SYRINGE) 1 mL 29 gauge x 1/2 1 Each once daily. olmesartan (BENICAR) 20 mg tablet Take 1 tablet by mouth once daily. traZODone (DESYREL) 150 mg tablet Take 1 tablet by mouth daily at bedtime. albuterol HFA (PROVENTIL HFA, VENTOLIN HFA) 90 mcg/actuation inhaler Inhale 2 Puffs as instructed four times a day as needed for wheezing/shortness of breath. FOR WHEEZING AND SHORTNESS OF BREATH. MULTIVITAMIN ORAL Take by mouth once daily. No current facility-administered medications for this visit. FAMILY HISTORY Adopted: Yes Family history unknown: Yes SOCIAL HISTORY[1] REVIEW OF SYSTEMS Eyes: (+) vision changes Cardiovascular: (+) chest pain, (+) orthopnea, (+) peripheral edema Respiratory: (+) shortness of breath, (-) cough, (-) wheeze Gastrointestinal: (-) nausea, (-) vomiting, (-) diarrhea, (-) constipation Genitourinary: (-) dysuria, (-) hematuria, (-) polyuria Musculoskeletal: (+) bilateral shoulder pain, (+) hip pain, (+) left arm pain, (+) leg pain Neurological: (+) paresthesia feet, (+) dizziness Psychiatric: (+) depressed mood, (+) anhedonia, (+) insomnia Endocrine: (-) polydipsia EXAM: BP 114/60 Pulse 86 Wt 100.7 kg (222 lb) SpO2 95% BMI 41.95 kg/m? PHYSICAL EXAM: GENERAL: NAD, alert and oriented. SKIN: Unremarkable, no rash or skin lesions. HEAD: Normocephalic. EYES: PERRLA, EOMI, conjunctiva clear. EARS: External ears normal, canals pink, TM's buldging NOSE/SINUSES: Nares boggy and smooth but can't see much. Septum midline. OROPHARYNX: Lips, mucosa, and tongue normal, good dentition. No oral lesions noted. NECK: Supple, no lymphadenopathy, normal thyroid, no carotid bruits. LUNGS: Clear to auscultation bilaterally, no wheezes/rhonchi/rales. HEART: Regular rate and rhythm, no murmurs. No ectopy. EXTREMITIES: Normal, no deformities, no skin discoloration, no edema. NEURO: Awake, alert and oriented x3, cranial nerves II-XII grossly intact, normal gait, no involuntary motions. LABS: reviewed recent labs and copy given to pt. Labs: - Microalbumin creatinine ratio: No evidence of diabetic nephropathy - Lipid panel: - Total cholesterol: 189 mg/dL - Triglycerides: 135 mg/dL - HDL: 53 mg/dL - LDL: 112 mg/dL - Renal function: Mildly decreased, stable - Thyroid function: Normal - Hemoglobin A1c: 6.5 (improved from 7.3) - Hemoglobin: 11.1 (mild anemia, improved from previous) ASSESSMENT/PLAN: 1. Primary hypertension (I10) - Stable - Olmesartan renewed 2. Insomnia, unspecified type (G47.00) - Ongoing insomnia attributed to chronic pain in shoulders and hips. 3. Encounter for screening mammogram for breast cancer (Z12.31) - Ordered 4. Screening for depression (Z13.31) 5. Encounter for screening examination for other mental health and behavioral disorders (Z13.39) - Patient reports feeling down and unable to enjoy activities due to 's COPD and group home. 6. Class 3 severe obesity with body mass index (BMI) of 40.0 to 44.9 in adult ([facility]) (E66.813) - Patient is actively trying to lose weight. 7. Type 2 diabetes mellitus with stage 3a chronic kidney disease, with long-term current use of insulin ([facility]) (E11.22) 8. Stage 3a chronic kidney disease ([facility]) (N18.31) - Hemoglobin A1c improved from 7.3 to 6.5. - Urine microalbumin/creatinine ratio shows no effect of diabetes on kidneys. - Kidney function remains slightly decreased but stable. - Educated patient on lab results. 9. Chronic pain of both shoulders (M25.511) 10. Fibromyalgia - Chronic pain in shoulders, hips, arm, and leg; back X-ray ordered but not yet completed. - Start topiramate 25 mg PO BID; discussed that it may help with discomfort and has a side effect of weight loss. - Discussed alternative medications (gabapentin, Lyrica) and potential to increase dose or switch if no improvement. - Patient expressed understanding and agreement to initiate topiramate. - Back X-ray to be completed at this facility. 11. Moderate persistent asthma without complication ([facility]) (J45.40) - Chronic dyspnea and chest pain; unable to lie on back due to breathing difficulties. - Stable on Wixela 12. Hypothyroidism, unspecified type (E03.9) - Thyroid function tests are normal. 13. Acute sinusitis, recurrence not specified, unspecified location (J01.90) - Treat with Medrol taper and amoxicillin 500 mg 3 x day for 10 days Discussed treatment plan and patient voices understanding. Patient's questions answered appropriately. Medications and potential side effects were discussed and patient voices understanding. Return to the office as scheduled or as needed for worsening/no improvement. Michelle Ceballos SKY DIVER [1] Social History Tobacco Use Smoking status: Never Smokeless tobacco: Never Tobacco comments: NO smoking in childhood home. Spouse smokes pipe, not around patient. Vaping Use Vaping status: Never Used Substance Use Topics Alcohol use: No Drug use: No CNOV Observed: 05/10/2025 11:20 AM Status: COMPLETED Source: [facility] CHLOE GUILLORY ([id number]) 1950 F Date Time Provider Department 05/10/25 11:20 AM MICHELLE CEBALLOS [facility] During your visit today, we recorded the following information about you: Pulse Blood pressure Weight 86/minute 108/66 100.7 kg Michelle Ceballos, [facility] 05/10/2025 11:59 AM Signed This is a 75 year old female who presents today with: Patient presents with: 6 Month Exam HISTORY OF PRESENT ILLNESS: Chloe Guillory is a 75 year old female. Patient presents with: 6 Month Exam The patient is a 75-year-old female with type 2 diabetes mellitus, anemia, diabetic peripheral neuropathy, and fibromyalgia, presenting for follow-up. DM: Reports overall feeling well. Medication side effects: No. Home sugar checks: yes- 100 fasting Hypoglycemic spells: Yes. Watching diet: Yes. Unexpected weight loss: No. Polyuria, polydipsia: No. Vision Changes: Yes. Foot lesions or numbness or pain: No. Diabetes: - Blood glucose levels: AM <100 mg/dL; PM <150 mg/dL. - No issues with current medication regimen. - Chloe experiences occasional hypoglycemia, with lowest reading at 70 mg/dL; managed by eating. - Adheres to dietary restrictions; reports minimal food intake to facilitate weight loss. - Denies polydipsia or polyuria. - Reports worsening vision; has not scheduled an eye exam. - Persistent paresthesia in feet. - Recent cardiology evaluation noted good cardiac function; parliamentary archivist suspects fibromyalgia as the etiology of chest pain. Depression: - Chloe reports anhedonia and feelings of hopelessness since her 's group home. - has COPD, limiting outdoor activities and travel. - Describes life as sucks since he retired. - Denies anxiety or excessive worry. Chronic Pain: - Chloe reports chronic pain in shoulders and hips, with radiation down the arm and leg. - Pain disrupts sleep. - Previous cortisone injection in shoulder; awaiting back x-ray. Dyspnea: - Chloe reports worsening dyspnea and dizziness. - Denies cough or wheezing. - Experiences mild edema in the left leg. - Unable to lie supine; sleeps on stomach or side. - Denies nausea, emesis, diarrhea, constipation, dysuria, or hematuria. PAST MEDICAL HISTORY: PAST MEDICAL HISTORY Diagnosis Date Hypertension Hypothyroidism Insomnia 03/19/2016 Moderate persistent asthma without complication ([facility]) 07/11/2015 07/07/15 Methacholine Inhalation Challenge: 35% drop FEV1 at 2.5 mg/mL. Morbid obesity ([facility]) 04/04/2015 Patient has morbid obesity. Multiple gallstones 03/20/2022 Resolved with lap choly 05/07/2022 KAM (obstructive sleep apnea) 09/26/2015 DME: [facility] Other hyperlipidemia 03/23/2019 RLS (restless legs syndrome) 02/15/2019 Stable angina pectoris 06/26/2020 Type 2 diabetes mellitus with stage 3 chronic kidney disease, with long-term current use of insulin ([facility]) 04/04/2015 Dx: age 51. On metformin and victoza which she does not think works well for her lately She was started on jardiance which made her have suicidal ideation So she stopped the medication. PAST SURGICAL HISTORY Procedure Laterality Date APPENDECTOMY 1957 LAPAROSCOPY DIAGNOSTIC 2000 LEFT HEART CATH,PERCUTANEOUS 07/14/2020 wnl REMOVAL GALLBLADDER 05/07/2022 TONSILLECTOMY AND ADENOIDECTOMY HX 1957 TOTAL ABDOMINAL HYSTERECT W/WO RMVL TUBE OVARY 2000 ALLERGIES Atorvastatin, Dust, Jardiance [Empagliflozin], Mold, Bgjwafz-Jga-Umd Reductase Inhibitors, and Victoza [Liraglutide] MEDICATIONS Current Outpatient Medications Medication Sig alogliptin (NESINA) 25 mg tab Take 25 mg by mouth once daily. magnesium oxide (MAG-OX) 400 mg (241.3 mg magnesium) tablet Take 1 tablet by mouth two times a day. insulin glargine (LANTUS U-100 INSULIN) 100 unit/mL injection Inject 40 Units subcutaneously daily at bedtime. metFORMIN (GLUCOPHAGE) 500 mg tablet Take 2 tablets by mouth two times a day with meals. SITagliptin phosphate (JANUVIA) 100 mg tablet Take 1 tablet by mouth once daily. Cyanocobalamin 1,000 mcg TbER Take 1 tablet by mouth once daily. levothyroxine (LEVOXYL) 50 mcg tablet Take 1 tablet by mouth once daily. Take on empty stomach. For Thyroid BIOTIN ORAL Take by mouth. dilTIAZem HCl 360 mg 24 hr capsule Take 1 capsule by mouth once daily. fenofibrate nanocrystallized (TRICOR) 145 mg tablet Take 1 tablet by mouth once daily. fluticasone-salmeterol (WIXELA INHUB) 250-50 mcg/dose inhaler Inhale 1 Puff as instructed two times a day. Rinse and gargle mouth with water after each use. omeprazole (PRILOSEC) 40 mg capsule Take 1 capsule by mouth once daily. Insulin Syringe-Needle U-100 (INSULIN SYRINGE) 1 mL 29 gauge x 1/2 1 Each once daily. olmesartan (BENICAR) 20 mg tablet Take 1 tablet by mouth once daily. traZODone (DESYREL) 150 mg tablet Take 1 tablet by mouth daily at bedtime. albuterol HFA (PROVENTIL HFA, VENTOLIN HFA) 90 mcg/actuation inhaler Inhale 2 Puffs as instructed four times a day as needed for wheezing/shortness of breath. FOR WHEEZING AND SHORTNESS OF BREATH. MULTIVITAMIN ORAL Take by mouth once daily. No current facility-administered medications for this visit. FAMILY HISTORY Adopted: Yes Family history unknown: Yes SOCIAL HISTORY[1] REVIEW OF SYSTEMS Eyes: (+) vision changes Cardiovascular: (+) chest pain, (+) orthopnea, (+) peripheral edema Respiratory: (+) shortness of breath, (-) cough, (-) wheeze Gastrointestinal: (-) nausea, (-) vomiting, (-) diarrhea, (-) constipation Genitourinary: (-) dysuria, (-) hematuria, (-) polyuria Musculoskeletal: (+) bilateral shoulder pain, (+) hip pain, (+) left arm pain, (+) leg pain Neurological: (+) paresthesia feet, (+) dizziness Psychiatric: (+) depressed mood, (+) anhedonia, (+) insomnia Endocrine: (-) polydipsia EXAM: BP 114/60 Pulse 86 Wt 100.7 kg (222 lb) SpO2 95% BMI 41.95 kg/m? PHYSICAL EXAM: GENERAL: NAD, alert and oriented. SKIN: Unremarkable, no rash or skin lesions. HEAD: Normocephalic. EYES: PERRLA, EOMI, conjunctiva clear. EARS: External ears normal, canals pink, TM's buldging NOSE/SINUSES: Nares boggy and smooth but can't see much. Septum midline. OROPHARYNX: Lips, mucosa, and tongue normal, good dentition. No oral lesions noted. NECK: Supple, no lymphadenopathy, normal thyroid, no carotid bruits. LUNGS: Clear to auscultation bilaterally, no wheezes/rhonchi/rales. HEART: Regular rate and rhythm, no murmurs. No ectopy. EXTREMITIES: Normal, no deformities, no skin discoloration, no edema. NEURO: Awake, alert and oriented x3, cranial nerves II-XII grossly intact, normal gait, no involuntary motions. LABS: reviewed recent labs and copy given to pt. Labs: - Microalbumin creatinine ratio: No evidence of diabetic nephropathy - Lipid panel: - Total cholesterol: 189 mg/dL - Triglycerides: 135 mg/dL - HDL: 53 mg/dL - LDL: 112 mg/dL - Renal function: Mildly decreased, stable - Thyroid function: Normal - Hemoglobin A1c: 6.5 (improved from 7.3) - Hemoglobin: 11.1 (mild anemia, improved from previous) ASSESSMENT/PLAN: 1. Primary hypertension (I10) - Stable - Olmesartan renewed 2. Insomnia, unspecified type (G47.00) - Ongoing insomnia attributed to chronic pain in shoulders and hips. 3. Encounter for screening mammogram for breast cancer (Z12.31) - Ordered 4. Screening for depression (Z13.31) 5. Encounter for screening examination for other mental health and behavioral disorders (Z13.39) - Patient reports feeling down and unable to enjoy activities due to 's COPD and group home. 6. Class 3 severe obesity with body mass index (BMI) of 40.0 to 44.9 in adult ([facility]) (E66.813) - Patient is actively trying to lose weight. 7. Type 2 diabetes mellitus with stage 3a chronic kidney disease, with long-term current use of insulin ([facility]) (E11.22) 8. Stage 3a chronic kidney disease ([facility]) (N18.31) - Hemoglobin A1c improved from 7.3 to 6.5. - Urine microalbumin/creatinine ratio shows no effect of diabetes on kidneys. - Kidney function remains slightly decreased but stable. - Educated patient on lab results. 9. Chronic pain of both shoulders (M25.511) 10. Fibromyalgia - Chronic pain in shoulders, hips, arm, and leg; back X-ray ordered but not yet completed. - Start topiramate 25 mg PO BID; discussed that it may help with discomfort and has a side effect of weight loss. - Discussed alternative medications (gabapentin, Lyrica) and potential to increase dose or switch if no improvement. - Patient expressed understanding and agreement to initiate topiramate. - Back X-ray to be completed at this facility. 11. Moderate persistent asthma without complication (HCC) (J45.40) - Chronic dyspnea and chest pain; unable to lie on back due to breathing difficulties. - Stable on Wixela 12. Hypothyroidism, unspecified type (E03.9) - Thyroid function tests are normal. 13. Acute sinusitis, recurrence not specified, unspecified location (J01.90) - Treat with Medrol taper and amoxicillin 500 mg 3 x day for 10 days Discussed treatment plan and patient voices understanding. Patient's questions answered appropriately. Medications and potential side effects were discussed and patient voices understanding. Return to the office as scheduled or as needed for worsening/no improvement. Michelle Ceballos SKY DIVER [1] Social History Tobacco Use Smoking status: Never Smokeless tobacco: Never Tobacco comments: NO smoking in childhood home. Spouse smokes pipe, not around patient. Vaping Use Vaping status: Never Used Substance Use Topics Alcohol use: No Drug use: No Michelle Ceballos APRN.[employer] 05/10/2025 11:59 AM Signed - Start topiramate 25 mg twice daily to help with your fibromyalgia pain and support weight loss; monitor for any side effects and let us know if your pain does not improve. - Amoxicillin 500 mg 3 x day for sinusitis - Medrol taper for allergic rhinitis - Have the back X-ray done here today as ordered. - Schedule an appointment with an eye doctor as soon as possible to evaluate your worsening vision. - Continue testing your blood sugar at home as you have been; if your reading drops to around 70 mg/dL, treat it by eating a snack. Allergies As of Date: 05/10/2025 Noted Allergy Reaction ATORVASTATIN 11/08/2024 17 - Myalgia Comments: Craps in all muscles DUST 09/26/2015 3 - Cough JARDIANCE (EMPAGLIFLOZIN) 01/27/2018 14 - Other: See Comments Comments: Became suicidal MOLD 03/19/2016 12 - Shortness of Breath [id number] REDUCTASE INHIBIT*04/04/2015 17 - Myalgia VICTOZA (LIRAGLUTIDE) 01/27/2018 14 - Other: See Comments Comments: Thinks she had thyroid issues from it. Date Reviewed: 04/18/2025 Reviewed by: Hyun Mata MA - Fully Assessed Reason for Visit: 6 Month Exam [189] Primary Visit Diagnosis:Class 3 severe obesity with body mass index (BMI) of 40.0 to 44.9 in adult ([facility]) [E66.813, Z68.41] Other Visit Diagnoses:Primary hypertension [I10] Insomnia, unspecified type [G47.00] Encounter for screening mammogram for breast cancer [Z12.31] Screening for depression [Z13.31] Encounter for screening examination for other mental health and behavioral disorders [Z13.39] Type 2 diabetes mellitus with stage 3a chronic kidney disease, with long-term current use of insulin ([facility]) [E11.22, N18.31, Z79.4] Chronic pain of both shoulders [M25.511, G89.29, M25.512] Moderate persistent asthma without complication ([facility]) [J45.40] Hypothyroidism, unspecified type [E03.9] Stage 3a chronic kidney disease ([facility]) [N18.31] Acute sinusitis, recurrence not specified, unspecified location [J01.90] Order(s):olmesartan (BENICAR) 20 mg tabletTake 1 tablet by mouth once daily.Disp: 90 tabletRfl: 3 traZODone (DESYREL) 150 mg tabletTake 1 tablet by mouth daily at bedtime.Disp: 90 tabletRfl: 3 MANJULA SCREENING W HAILEE [2090550] Order #: [id number] FUTURE DEPRESSION SCREENING [] Order #: [id number]: 1 ANXIETY SCREENING [] Order #: [id number]: 1 topiramate (TOPAMAX) 25 mg tabletTake 1 tablet by mouth two times a day.Disp: 60 tabletRfl: 5 amoxicillin (AMOXIL) 500 mg capsuleTake 1 capsule by mouth three times a day for 10 days.Disp: 30 capsuleRfl: 0 methylPREDNISolone (MEDROL, SELAM,) 4 mg Dose-PackTake as instructed per package.Disp: 21 tabletRfl: 0 Prescriptions as of 05/10/2025 - olmesartan (BENICAR) 20 mg tablet Take 1 tablet by mouth once daily. - traZODone (DESYREL) 150 mg tablet Take 1 tablet by mouth daily at bedtime. - topiramate (TOPAMAX) 25 mg tablet Take 1 tablet by mouth two times a day. - amoxicillin (AMOXIL) 500 mg capsule Take 1 capsule by mouth three times a day for 10 days. - methylPREDNISolone (MEDROL, SELAM,) 4 mg Dose-Pack Take as instructed per package. - alogliptin (NESINA) 25 mg tab Take 25 mg by mouth once daily. - magnesium oxide (MAG-OX) 400 mg (241.3 mg magnesium) tablet Take 1 tablet by mouth two times a day. - insulin glargine (LANTUS U-100 INSULIN) 100 unit/mL injection Inject 40 Units subcutaneously daily at bedtime. - metFORMIN (GLUCOPHAGE) 500 mg tablet Take 2 tablets by mouth two times a day with meals. - SITagliptin phosphate (JANUVIA) 100 mg tablet Take 1 tablet by mouth once daily. - Cyanocobalamin 1,000 mcg TbER Take 1 tablet by mouth once daily. - levothyroxine (LEVOXYL) 50 mcg tablet Take 1 tablet by mouth once daily. Take on empty stomach. For Thyroid - BIOTIN ORAL Take by mouth. - dilTIAZem HCl 360 mg 24 hr capsule Take 1 capsule by mouth once daily. - fenofibrate nanocrystallized (TRICOR) 145 mg tablet Take 1 tablet by mouth once daily. - fluticasone-salmeterol (WIXELA INHUB) 250-50 mcg/dose inhaler Inhale 1 Puff as instructed two times a day. Rinse and gargle mouth with water after each use. - omeprazole (PRILOSEC) 40 mg capsule Take 1 capsule by mouth once daily. - Insulin Syringe-Needle U-100 (INSULIN SYRINGE) 1 mL 29 gauge x 1/2 1 Each once daily. - albuterol HFA (PROVENTIL HFA, VENTOLIN HFA) 90 mcg/actuation inhaler Inhale 2 Puffs as instructed four times a day as needed for wheezing/shortness of breath. FOR WHEEZING AND SHORTNESS OF BREATH. - MULTIVITAMIN ORAL Take by mouth once daily. Meds Comments as of 06/07/2015: Patient has broken out recently feel like it is from her Trazadone Problem List As Of Date 05/10/2025 Noted Resolved Type 2 diabetes mellitus with stage 3a chronic *04/04/2015 Hypertension [I10] 04/04/2015 Hypothyroidism [E03.9] 04/04/2015 Morbid obesity (HCC) [E66.01] 04/04/2015 03/23/2019 Moderate persistent asthma without complication*07/11/2015 AKM (obstructive sleep apnea) CPAP intolerant [*09/26/2015 Insomnia [G47.00] 03/19/2016 RLS (restless legs syndrome) [G25.81] 02/15/2019 Kidney disease [N28.9] 03/23/2019 07/06/2019 Class 3 severe obesity with body mass index (BM*03/23/2019 Edema [R60.9] 03/23/2019 Other hyperlipidemia [E78.49] 03/23/2019 Stable angina pectoris [I20.89] 06/26/2020 04/01/2025 SOB (shortness of breath) [R06.02] 07/14/2020 05/01/2022 Multiple gallstones [K80.20] 03/20/2022 04/01/2023 Chronic pain of both shoulders [M25.511, G89.29*07/29/2022 Other instructions from your clinician: - Start topiramate 25 mg twice daily to help with your fibromyalgia pain and support weight loss; monitor for any side effects and let us know if your pain does not improve. - Amoxicillin 500 mg 3 x day for sinusitis - Medrol taper for allergic rhinitis - Have the back X-ray done here today as ordered. - Schedule an appointment with an eye doctor as soon as possible to evaluate your worsening vision. - Continue testing your blood sugar at home as you have been; if your reading drops to around 70 mg/dL, treat it by eating a snack. Prescriptions ordered this encounter Disp Refills Start End OLMESARTAN 20 MG TABLET 90 t* 3 05/10/2025 Route: PO Sig: Take 1 tablet by mouth once daily. TRAZODONE 150 MG TABLET 90 t* 3 05/10/2025 Route: PO Sig: Take 1 tablet by mouth daily at bedtime. TOPIRAMATE 25 MG TABLET 60 t* 5 05/10/2025 11/06/2025 Route: PO Sig: Take 1 tablet by mouth two times a day. AMOXICILLIN 500 MG CAPSULE 30 c* 0 05/10/2025 05/20/2025 Route: PO Sig: Take 1 capsule by mouth three times a day for 10 days. METHYLPREDNISOLONE 4 MG TABLETS IN A* 21 t* 0 05/10/2025 05/16/2025 Sig: Take as instructed per package. Medications Discontinued During This Encounter Prescriptions - olmesartan (BENICAR) 20 mg tablet (Discontinued) Take 1 tablet by mouth once daily. - traZODone (DESYREL) 150 mg tablet (Discontinued) Take 1 tablet by mouth daily at bedtime. Level of Service: OFFICE/OUTPATIENT ESTABLISHED MOD MDM 30 MIN [10395] Additional E/M codes: VISIT CPLX INHERENT EANDM ASSOC WITH MED * Disposition: Return in about 6 months (around 11/07/2025) for routine. Follow-up and Disposition History for Encounter Date Provider Department Center 05/10/2025 [id number]-LHMXXFSHANA CEBALLOS*FAMPWS Rachel [facility] Encounter Status:Closed by MICHELLE CEBALLOS on 05/10/25 PROGRESS Observed: 05/04/2025 10:26 AM Status: COMPLETED Source: [facility] HNO ID: [id number] Author: NIKOLAS CRAVEN RPh Service: ? Author Type: Pharmacist Type: Progress Notes Filed: 05/04/2025 10:30 Note Text: Chloe Guillory is identified AND reviewed as part of population health initiative focused on STAR measures care gaps through data from [employer]ins[employer] as a potential candidate for statin therapy with no prescription claims processes for a statin medication in this calendar year. Patient has: PCP at [facility] - Michelle Ceballos APRN.SKY DIVER Cardiology provider at [facility] - No care [employer] sales and lending team member to display Patient has: ASCVD diagnosis (CAD) Guideline recommendation: Per 2019 ACC/AHA guidelines, patient qualifies for a high intensity statin d/t history of ASCVD. Status: Patient is not on statin therapy. Patient experienced myalgia while on statin therapy in the past. Patient was previously taken off of statin therapy due to this issue. VBO Outcomes: Intolerance/Allergy; Patient experienced myalgia while on statin therapy in the past and was taken off statin due to this issue. Nikolas Craven RPh Value Based Care Pharmacy Team CHERI Observed: 05/04/2025 12:00 AM Status: COMPLETED Source: [facility] Patient Outreach (PHPOHE) CHLOE GUILLORY ([id number]) 1950 F Date Time Provider Department 05/04/25 NIKOLAS CRAVEN [facility] During your visit today, we recorded the following information about you: Nikolas Craven RPh 05/04/2025 10:30 AM Signed Chloe Dillon Kahlil is identified AND reviewed as part of population health initiative focused on STAR measures care gaps through data from [employer]ins[employer] as a potential candidate for statin therapy with no prescription claims processes for a statin medication in this calendar year. Patient has: PCP at [facility] - Michelle Ceballos APRN.SKY DIVER Cardiology provider at [facility] - No care [employer] sales and lending team member to display Patient has: ASCVD diagnosis (CAD) Guideline recommendation: Per 2019 ACC/AHA guidelines, patient qualifies for a high intensity statin d/t history of ASCVD. Status: Patient is not on statin therapy. Patient experienced myalgia while on statin therapy in the past. Patient was previously taken off of statin therapy due to this issue. VBO Outcomes: Intolerance/Allergy; Patient experienced myalgia while on statin therapy in the past and was taken off statin due to this issue. Nikolas Craven RPh Value Based Care Pharmacy Team Allergies As of Date: 05/04/2025 Noted Allergy Reaction ATORVASTATIN 11/08/2024 17 - Myalgia Comments: Craps in all muscles DUST 09/26/2015 3 - Cough JARDIANCE (EMPAGLIFLOZIN) 01/27/2018 14 - Other: See Comments Comments: Became suicidal MOLD 03/19/2016 12 - Shortness of Breath [id number] REDUCTASE INHIBIT*04/04/2015 17 - Myalgia VICTOZA (LIRAGLUTIDE) 01/27/2018 14 - Other: See Comments Comments: Thinks she had thyroid issues from it. Date Reviewed: 04/18/2025 Reviewed by: Hyun Mata MA - Fully Assessed Reason for Visit: Allied Health Visit [5] Cmt: SPC Prescriptions as of 05/04/2025 - alogliptin (NESINA) 25 mg tab Take 25 mg by mouth once daily. - magnesium oxide (MAG-OX) 400 mg (241.3 mg magnesium) tablet Take 1 tablet by mouth two times a day. - insulin glargine (LANTUS U-100 INSULIN) 100 unit/mL injection Inject 40 Units subcutaneously daily at bedtime. - metFORMIN (GLUCOPHAGE) 500 mg tablet Take 2 tablets by mouth two times a day with meals. - SITagliptin phosphate (JANUVIA) 100 mg tablet Take 1 tablet by mouth once daily. - Cyanocobalamin 1,000 mcg TbER Take 1 tablet by mouth once daily. - levothyroxine (LEVOXYL) 50 mcg tablet Take 1 tablet by mouth once daily. Take on empty stomach. For Thyroid - BIOTIN ORAL Take by mouth. - dilTIAZem HCl 360 mg 24 hr capsule Take 1 capsule by mouth once daily. - fenofibrate nanocrystallized (TRICOR) 145 mg tablet Take 1 tablet by mouth once daily. - fluticasone-salmeterol (WIXELA INHUB) 250-50 mcg/dose inhaler Inhale 1 Puff as instructed two times a day. Rinse and gargle mouth with water after each use. - omeprazole (PRILOSEC) 40 mg capsule Take 1 capsule by mouth once daily. - Insulin Syringe-Needle U-100 (INSULIN SYRINGE) 1 mL 29 gauge x 1/2 1 Each once daily. - olmesartan (BENICAR) 20 mg tablet Take 1 tablet by mouth once daily. - traZODone (DESYREL) 150 mg tablet Take 1 tablet by mouth daily at bedtime. - albuterol HFA (PROVENTIL HFA, VENTOLIN HFA) 90 mcg/actuation inhaler Inhale 2 Puffs as instructed four times a day as needed for wheezing/shortness of breath. FOR WHEEZING AND SHORTNESS OF BREATH. - MULTIVITAMIN ORAL Take by mouth once daily. Meds Comments as of 06/07/2015: Patient has broken out recently feel like it is from her Trazadone Problem List As Of Date 05/04/2025 Noted Resolved Type 2 diabetes mellitus with stage 3a chronic *04/04/2015 Hypertension [I10] 04/04/2015 Hypothyroidism [E03.9] 04/04/2015 Morbid obesity (HCC) [E66.01] 04/04/2015 03/23/2019 Moderate persistent asthma without complication*07/11/2015 KAM (obstructive sleep apnea) CPAP intolerant [*09/26/2015 Insomnia [G47.00] 03/19/2016 RLS (restless legs syndrome) [G25.81] 02/15/2019 Kidney disease [N28.9] 03/23/2019 07/06/2019 Class 3 severe obesity with body mass index (BM*03/23/2019 Edema [R60.9] 03/23/2019 Other hyperlipidemia [E78.49] 03/23/2019 Stable angina pectoris [I20.89] 06/26/2020 04/01/2025 SOB (shortness of breath) [R06.02] 07/14/2020 05/01/2022 Multiple gallstones [K80.20] 03/20/2022 04/01/2023 Chronic pain of both shoulders [M25.511, G89.29*07/29/2022 Encounter Status:Closed by NIKOLAS CRAVEN on 05/04/25 ALBUMIN/CREATININE RATIO, URINE Collect ed: 04/29/2025 11:44 AM Status: F Source: [facility] Order Comment: Specimen Type : URINE SPECIMEN Ordering Facility: [facility] Address: [address] [place] [address] TYPE CODE TESTS RESULT OUT OF RANGE REFERENCE UNITS LAB 2161-8(LOINC) Creat Ur-mCnc 410.5 High 20.0-300.0 m g/dL LAB 85440-4(LOINC ) Microalbumin Ur-mCnc 103.4 mg/L LAB 9318-7(LOINC) Albumin/Creat Ur 25 <30 mg/g Result Comment: Adult Male a nd Female Nephrotic Criteria: <30 mg/g is considered normal to mildly increased 30-300 mg/g is considered moderately increased >300 mg/g is considered severely increased KDIGO. (2013). KDIGO 2012 Clinical Practice Guideline for the Evaluation and Management of Chronic Kidney Disease. Official Journal of the International Society of Nephrology, 3(1), 1-150. Performed By: #### UACR #### [facility] CLIA [id number] [address] [place] [address] STATES OF [facility] CBC PNL BLD AUTO Collected: 5 11:03 AM Status: F Source: [facility] Order Comment: Specimen Type : BLOOD SPECIMEN Ordering Facility: [facility] Address: [address] [place] [address] TYPE CODE TESTS RESULT OUT OF RANGE REFERENCE UNITS LAB 6690-2(LOINC) WBC # Bld Auto 6.87 3.70-11.00 k/uL LAB 789-8(LOINC) RBC # Bld Auto 3.90 3.90-5.20 m/uL LAB 718-7(LOINC) Hgb Bld-mCnc 11.1 Low 11.5-15.5 g/dL LAB 4544-3(LOINC) Hct VFr Bld Auto 34.3 Low 36.0-46.0 % LAB 787-2(LOINC) MCV RBC Auto 87.9 80.0-100.0 fL LAB 785-6(LOINC) MCH RBC Qn Auto 28.5 26.0-34.0 pg LAB 786-4(LOINC) MCHC RBC Auto-mCnc 32.4 30.5-36.0 g/dL LAB 42619-2(LOINC) RDW RBC-Rto 13.5 11.5-15.0 % LAB 777-3(LOINC) Platelet # Bld Auto 320 150-400 k/uL LAB 69109-7(LOINC) PMV Bld Auto 9.3 9.0-12.7 fL LAB 771-6(LOINC) nRBC # Bld Auto <0.01 <0.01 k/uL Performed By: #### 51271-0 # ### [facility] CLIA [id number] [address] [place] [address] [place] COMP METAB 2000 PNL SERPL Collected: 11:03 AM Status: F Source: [facility] Comment: Specimen Type : BLOOD SPECIMEN Ordering Facility: [facility] Address: [address] [place] [address] [place] [address] TYPE CODE TESTS RESULT OUT OF RANGE REFERENCE UNITS LAB 2885-2(LOINC) Prot SerPl-mCnc 6.6 6.3-8.0 g/dL LAB 1751-7(LOINC) Albumin SerPl-mCnc 4.0 3.9-4.9 g/dL LAB 04297-0(LOINC) Calcium SerPl-mCnc 9.5 8.5-10.2 mg/dL LAB 1975-2(LOINC) Bilirub SerPl-mCnc 0.2 0.2-1.3 mg/dL LAB 6768-6(LOINC) ALP SerPl-cCnc 51 34-123 U/L LAB 1920-8(LOINC) AST SerPl-cCnc 14 13-35 U/L LAB 1742-6(LOINC) ALT SerPl-cCnc 12 7-38 U/L LAB 2345-7(LOINC) Glucose SerPl-mCnc 119 High 74-99 mg/dL Result Comment: The [place] Diabetes Association (ADA) provides guidance for cutoff values for fasting glucose and random glucose. The ADA defines fasting as no caloric intake for at least 8 hours. Fasting plasma glucose results between 100 to 125 mg/dL indicate increased risk for diabetes (prediabetes). Fasting plasma glucose results greater than or equal to 126 mg/dL meet the criteria for diagnosis of diabetes. In the absence of unequivocal hyperglycemia, results should be confirmed by repeat testing. In a patient with classic symptoms of hyperglycemia or hyperglycemic crisis, random plasma glucose results greater than or equal to 200 mg/dL meet the criteria for diagnosis of diabetes. Reference: Standards of Medical Care in Diabetes 2016, [place] Diabetes Association. Diabetes Care. 2016.39(Suppl 1). LAB 3094-0(LOINC) BUN SerPl-mCnc 22 High 7-21 mg/dL LAB 2160-0(LOINC) Creat SerPl-mCnc 1.14 High 0.58-0.96 mg/dL LAB 2951-2(LOINC) Sodium SerPl-sCnc 140 136-144 mmol/L LAB 2823-3(LOINC) Potassium SerPl-sCnc 4.7 3.7-5.1 mmol/L LAB 2075-0(LOINC) Chloride SerPl-sCnc 104 98-107 mmol/L LAB 2027-9(LOINC) CO2 SerPl-sCnc 24 22-30 mmol/L LAB 92761-6(LOINC) Anion Gap SerPl-sCnc 12 8-15 mmol/L LAB 61314-1(LOINC) eGFRcr SerPlBld CKD-EPI 2020 51 Low >=60 mL/min/1. 73m??? Result Comment: Estimated Gl omerular Filtration Rate (eGFR) is calculated using the 2020 CKD-EPI creatinine equation. This equation utilizes serum creatinine, sex, and age as parameters. The creatinine assay has traceable calibration to isotope dilution-mass spectrometry. Refer to KDIGO guidelines for clinical interpretation. In patients with unstable renal function, e.g. those with acute kidney injury, the eGFR may not accurately reflect actual GFR. Performed By: #### 46903-2 # ### [facility] CLIA [id number] [address] [place] [address] [place] DEPRECATED HGB A1C BLD Collected: 04/29 11:03 AM Status: F Source: [facility] Comment: Specimen Type : BLOOD SPECIMEN Ordering Facility: [facility] Address: [address] [place] [address] TYPE CODE TESTS RESULT OUT OF RANGE REFERENCE UNITS LAB 4548-4(LOINC) HbA1c MFr Bld 6.5 High 4.3-5.6 % Result Comment: [place] Naheed betes Association guidelines indicate that patients with HgbA1c in the range 5.7-6.4% are at increased risk for development of diabetes, and intervention by lifestyle modification may be beneficial. HgbA1c greater or equal to 6.5% is considered diagnostic of diabetes. LAB 72921-0(LOINC) Est. average glucose Bld gHb Est-mCnc 140 mg/dL Result Comment: eAG: (Estima vance average glucose) is a calculated value from HgbA1c and is sales representative graphic art of the average blood glucose level in the last 2-3 month period. Performed By: #### 17439-6 # ### [facility] CLIA [id number] [address] [place], [place] [address] [address] [place] LIPID 1996 PNL SERPL Collected: 025 11:03 AM Status: F Source: [facility] Order Comment: Specimen Type : BLOOD SPECIMEN Ordering Facility: [facility] Address: [address] [place] [address] TYPE CODE TESTS RESULT OUT OF RANGE REFERENCE UNITS LAB 3-3(LOINC) Cholest SerPl-mCnc 189 <200 mg/dL Result Comment: <200 mg/dL, Desirable 200-239 mg/dL, Borderline high >239 mg/dL, High LAB 2571-8(LOINC) Trigl SerPl-mCnc 135 <150 mg/dL Result Comment: <150 mg/dL, Normal 150-199 mg/dL, Borderline high 200-499 mg/dL, High >499 mg/dL, Very high LAB 5-9(LOINC) HDLc SerPl-mCnc 53 >39 mg/dL Result Comment: 40-59 mg/dL, Acceptable >59 mg/dL, High: Negative risk factor for coronary heart disease <40 mg/dL, Low: Positive risk factor for coronary heart disease LAB 9-1(LOINC) LDLc SerPl-mCnc 112 High <100 mg/dL Result Comment: <100 mg/dL, Optimal 100-129 mg/dL, Near optimal/above optimal 130-159 mg/dL, Borderline high 160-189 mg/dL, High >189 mg/dL, Very high Secondary prevention optimal LDL Cholesterol levels are recommended to be <70 mg/dL LDL cholesterol is calculated using the Hsu-NIH equation. LAB 79253-9(LOINC) NonHDLc SerPl-mCnc 136 High <130 mg/dL Result Comment: <130 mg/dL, Optimal 130-159 mg/dL, Near optimal/above optimal 160-189 mg/dL, Borderline high 190-219 mg/dL, High >219 mg/dL, Very high Secondary prevention optimal non HDL Cholesterol levels are recommended to be <100 mg/dL LAB 90596-2(LOINC) VLDLc SerPl Calc-mCnc 23 <30 mg/dL LAB 9830-1(LOINC) Cholest/HDL c SerPl 3.57 <5.10 LAB 87294-2(LOINC) LDLc/HDLc SerPl 2.11 <2.54 Result Comment: Reference: 1. National Cholesterol Education Program ATP III Guideline At-A-Glance Quick Desk Reference: National Heart, Lung, and Blood [place]. National Institutes of Health. 2001: NIH Publication No. 01-3305. 2. An International Atherosclerosis Society position paper: global recommendations for the management of dyslipidemia: executive summary, Atherosclerosis. 2014: 232(2):410-413. LAB FT FASTING TIME 12 hrs Performed By: #### 69606-0 # ### [facility] CLIA [id number] [address] [place], [place] [address] [place] [address] STATES OF [place] #### 3016-3 #### [facility] CLIA [id number] [address] [place] [address] STATES [facility] TSH SERPL-ACNC Collected: 5 11:03 AM Status: F Source: [facility] Order Comment: Specimen Type : BLOOD SPECIMEN Ordering Facility: [facility] Address: [address] [place] [address] TYPE CODE TESTS RESULT OUT OF RANGE REFERENCE UNITS LAB 3016-3([facility]) TSH SerPl-aCnc 3.590 0.270-4.200 mIU/L Performed By: #### 64583-3 # ### [facility] CLIA [id number] [address] [place], [place] [address] [place] [address] OF [place] #### 3016-3 #### [facility] CLIA [id number] [address] [place] [address] [place] PROGRESS Observed: 04/18/2025 1:52 PM Status: COMPLETED [facility] ID: [id number] Author: KRISTIN BYRNE PA-C Service: ? Author Type: Physician Access Liaison Type: Progress Notes Filed: 04/18/2025 13:59 Note Text: [facility] Orth[facility] [address] [facility] [address] Dept: [phone] Dept April 18, 2025 CHIEF COMPLAINT: Follow Up of the Left Shoulder and Follow Up of the Right Shoulder Patient presents with ongoing left shoulder pain. She was seen by me a few months ago complaining of bilateral shoulder pain which is keeping her up at night. At that time her blood sugars were far too elevated to proceed with a corticosteroid injection. The patient has been using topical Voltaren and taking oral meloxicam despite her chronic kidney disease. She presents today with continued left shoulder pain, left shoulder pain is now radiating down her arm into her hand. She has improved her glycemic control and her most recent hemoglobin A1c on February 11 was 7.3. She is also complaining of pain running down the lateral aspect of her left leg mainly the lateral floyd. Pain has been keeping her awake at night, she denies any known injury. She describes the pain as a bruise. ASSESSMENT: M19.012 Primary osteoarthritis of left shoulder (primary encounter diagnosis) M54.16 Lumbar radicular pain E11.65, Z79.4 Type 2 diabetes mellitus with hyperglycemia, with long-term current use of insulin ([facility]) PLAN: Patient certainly has left shoulder glenohumeral joint arthritis though her history of pain radiating down the arm sounds like it may be more radicular in nature. We discussed doing a left shoulder corticosteroid injection to see if it alleviates some of her pain, if pain continues to radiate down the arm my suggestion would be to get some cervical x-rays. Will get some lumbar films today to evaluate her low back, she may benefit from some physical therapy. Advised her to pay close attention to her blood sugars following the corticosteroid injection today. Mrs. Chloe Guillory was advised as to contrast therapies and/or to take analgesics/anti-inflammatories as needed and all contraindications were reviewed. OBJECTIVE: Mrs. Chloe Guillory is a pleasant 75 year old in no apparent distress. Gen:There were no vitals taken for this visit. nl development, non obese, no deformities ENT: Normocephalic, normal hearing, moist mucosa CV: Pulses:Radial= 2+ and symmetric, capillary refill < 2 secs, no peripheral edema/varicosities Skin: no rash, bruising or lesions. Good turgor. Psych: cooperative and appropriate, alert and oriented x 3, good mood and affect. Musculoskeletal: Left shoulder is also diffusely tender making exam difficult, passive forward elevation about 130 degrees with passive external rotation to about 30 degrees. Positive Pemberton and positive Neer impingement signs, 5 out of 5 strength testing on the left with supraspinatus, infraspinatus and subscapularis. In addition to the comprehensive evaluation, assessment and plan outlined above, and as a distinct and separate element to the visit today, separate from the separate complaint of lumbar radiculopathy, lumbar films ordered at today's visit, we have made the determination to proceed with an injection to aid in the management of the patient's condition. We discussed the risks, benefits, alternatives and expected outcomes of this injection in detail, and the patient agreed to proceed. The procedure was performed as detailed below. Large Joint Arthro/Inj: L subacromial bursa 04/18/2025 1:58 PM The procedure site was prepped in the usual sterile fashion. Site: L subacromial bursa Medications: 6 mg betamethasone acetate-betamethasone sodium phosphate 6 mg/mL Anesthetics: 5 mL lidocaine (PF) 10 mg/mL (1 %) Outcome: Tolerated well, no immediate complications Post-injection instructions were reviewed with the patient and the patient voiced understanding of these instructions. Informed Consent Consent Obtained: Verbal [place] Protocol A moment to CARE was completed. SIGN IN Sign in communication not applicable due to emergent procedure. Personnel directly involved with the procedure wore the appropriate PPE. Special Equipment: N/A Patient/Surrogate Stated/Verified: Patient name, Date of , Relevant allergies and Intended procedure TIME OUT Relevant labs, photos, and/or imaging studies have been reviewed. Consent documented and matches the intended procedure. Correct side/site marked and visible. Medications required for procedure verified. No fire risk assessment and interventions applicable. No implant(s) inserted. SIGN OUT No specimen collected. No post-procedure POC communication to the patient's multidisciplinary team (including the bedside nurse for hospitalized patients) applicable. Imaging: IMPRESSION: 1. Osteoarthritis of the bilateral shoulders Supervisor Tower: JOHNSON Transcribe Date/Time: Nov 10 2024 5:27P Dictated by : WILL HALE MD This examination was interpreted and the report reviewed and electronically signed by: WILL HALE MD on Nov 10 2024 5:28PM EST Results-Findings * * *Final Report* * * DATE OF EXAM: Nov 08 2024 2:23PM WOX 5253 - XR SHLDR >/=3V AP/KILEY AP/OTHR RT / PROCEDURE REASON: multiple diagnoses * * * * Physician Interpretation * * * * SHOULDER RADIOGRAPHS - BILATERAL HISTORY: Bilateral shoulder pain, unspecified chronicity TECHNOLOGIST PROVIDED HISTORY (if applicable): pain for 2 years all around both shoulder joints no inj TECHNIQUE: XR SHLDR >/=3V AP/KILEY AP/OTHR LT, XR SHLDR >/=3V AP/KILEY AP/OTHR RT COMPARISON: Bilateral shoulder radiographs 07/26/2022 RESULT: There is generalized osteopenia. Right shoulder: The glenohumeral joint demonstrates mild arthrosis with small marginal osteophytes. The acromioclavicular joint demonstrates moderate hypertrophic arthrosis. Soft tissues appear within normal limits. Left shoulder: The glenohumeral joint demonstrates mild arthrosis with small marginal osteophytes. Resolution of previously seen calcific tendinitis The acromioclavicular joint demonstrates moderate hypertrophic arthrosis. Soft tissues appear within normal limits. Result History Supporting Subjective Information Below: Past Surgical History: PAST SURGICAL HISTORY Procedure Laterality Date APPENDECTOMY 1957 LAPAROSCOPY DIAGNOSTIC 2000 LEFT HEART CATH,PERCUTANEOUS 07/14/2020 wnl REMOVAL GALLBLADDER 05/07/2022 TONSILLECTOMY AND ADENOIDECTOMY HX 1957 TOTAL ABDOMINAL HYSTERECT W/WO RMVL TUBE OVARY 2000 Medications: Current Outpatient Medications Medication Sig alogliptin (NESINA) 25 mg tab Take 25 mg by mouth once daily. magnesium oxide (MAG-OX) 400 mg (241.3 mg magnesium) tablet Take 1 tablet by mouth two times a day. insulin glargine (LANTUS U-100 INSULIN) 100 unit/mL injection Inject 40 Units subcutaneously daily at bedtime. metFORMIN (GLUCOPHAGE) 500 mg tablet Take 2 tablets by mouth two times a day with meals. SITagliptin phosphate (JANUVIA) 100 mg tablet Take 1 tablet by mouth once daily. Cyanocobalamin 1,000 mcg TbER Take 1 tablet by mouth once daily. levothyroxine (LEVOXYL) 50 mcg tablet Take 1 tablet by mouth once daily. Take on empty stomach. For Thyroid BIOTIN ORAL Take by mouth. dilTIAZem HCl 360 mg 24 hr capsule Take 1 capsule by mouth once daily. fenofibrate nanocrystallized (TRICOR) 145 mg tablet Take 1 tablet by mouth once daily. fluticasone-salmeterol (WIXELA INHUB) 250-50 mcg/dose inhaler Inhale 1 Puff as instructed two times a day. Rinse and gargle mouth with water after each use. omeprazole (PRILOSEC) 40 mg capsule Take 1 capsule by mouth once daily. olmesartan (BENICAR) 20 mg tablet Take 1 tablet by mouth once daily. traZODone (DESYREL) 150 mg tablet Take 1 tablet by mouth daily at bedtime. albuterol HFA (PROVENTIL HFA, VENTOLIN HFA) 90 mcg/actuation inhaler Inhale 2 Puffs as instructed four times a day as needed for wheezing/shortness of breath. FOR WHEEZING AND SHORTNESS OF BREATH. MULTIVITAMIN ORAL Take by mouth once daily. Insulin Syringe-Needle U-100 (INSULIN SYRINGE) 1 mL 29 gauge x 1/2 1 Each once daily. No current facility-administered medications for this visit. Allergies: Atorvastatin, Dust, Jardiance [Empagliflozin], Mold, Lowznqm-Jlg-[id number] Reductase Inhibitors, and Victoza [Liraglutide] ROS: General (negative for fatigue, malaise, weight loss/gain) HEENT (negative for headache, earache, recent vision changes, sinus pain, sore throat) Respiratory (no recent shortness of breath, hemoptysis) CV (negative for chest tightness, palpitations) Musculoskeletal (see HPI) Psych (no depression, anxiety) This note was partially generated using [employer] voice recognition system, and there may be some incorrect words, spellings, and punctuation that were not noted in checking the note before saving. Kristin Byrne PA-C PROGRESS Observed: 04/18/2025 1:34 PM Status: COMPLETED Source: [facility] HNO ID: [id number] Author: HYUN MATA MA Service: ? Author Type: Chicken Boner Type: Progress Notes Filed: 04/18/2025 13:59 Note Text: AMB ROOMING INTAKE FLOWSHEET DATA Pain Pain Level: 8 Pain Location: (bilateral shoulder) Description: Aching, Dull Duration Amount of Time: (ongoing) Frequency: Continuous Intervention/Comfort measure: Other: See comment (none) Patient would like cortisone injection today into both shoulders. FBS 120's and under. CNOV Observed: 04/18/2025 1:30 PM Status: COMPLETED Source: [facility] Office Visit (ORTHWS) CHLOE GUILLORY ([id number]) 1950 F Date Time Provider Department 04/18/25 1:30 PM KRISTIN BYRNE During your visit today, we recorded the following information about you: Hyun Mata MA 04/18/2025 1:59 PM Signed AMB ROOMING INTAKE FLOWSHEET DATA Pain Pain Level: 8 Pain Location: (bilateral shoulder) Description: Aching, Dull Duration Amount of Time: (ongoing) Frequency: Continuous Intervention/Comfort measure: Other: See comment (none) Patient would like cortisone injection today into both shoulders. FBS 120's and under. Kristin Byrne PA-C 04/18/2025 1:59 PM Signed Kristin Byrne PA-C Department of Orthopaedics Orthopaedics [address] [facility] [address] Dept: [phone] Dept April 18, 2025 CHIEF COMPLAINT: Follow Up of the Left Shoulder and Follow Up of the Right Shoulder Patient presents with ongoing left shoulder pain. She was seen by me a few months ago complaining of bilateral shoulder pain which is keeping her up at night. At that time her blood sugars were far too elevated to proceed with a corticosteroid injection. The patient has been using topical Voltaren and taking oral meloxicam despite her chronic kidney disease. She presents today with continued left shoulder pain, left shoulder pain is now radiating down her arm into her hand. She has improved her glycemic control and her most recent hemoglobin A1c on February 11 was 7.3. She is also complaining of pain running down the lateral aspect of her left leg mainly the lateral floyd. Pain has been keeping her awake at night, she denies any known injury. She describes the pain as a bruise. ASSESSMENT: M19.012 Primary osteoarthritis of left shoulder (primary encounter diagnosis) M54.16 Lumbar radicular pain E11.65, Z79.4 Type 2 diabetes mellitus with hyperglycemia, with long-term current use of insulin ([facility]) PLAN: Patient certainly has left shoulder glenohumeral joint arthritis though her history of pain radiating down the arm sounds like it may be more radicular in nature. We discussed doing a left shoulder corticosteroid injection to see if it alleviates some of her pain, if pain continues to radiate down the arm my suggestion would be to get some cervical x-rays. Will get some lumbar films today to evaluate her low back, she may benefit from some physical therapy. Advised her to pay close attention to her blood sugars following the corticosteroid injection today. Mrs. Chloe Guillory was advised as to contrast therapies and/or to take analgesics/anti-inflammatories as needed and all contraindications were reviewed. OBJECTIVE: Mrs. Chloe Guillory is a pleasant 75 year old in no apparent distress. Gen:There were no vitals taken for this visit. nl development, non obese, no deformities ENT: Normocephalic, normal hearing, moist mucosa CV: Pulses:Radial= 2+ and symmetric, capillary refill < 2 secs, no peripheral edema/varicosities Skin: no rash, bruising or lesions. Good turgor. Psych: cooperative and appropriate, alert and oriented x 3, good mood and affect. Musculoskeletal: Left shoulder is also diffusely tender making exam difficult, passive forward elevation about 130 degrees with passive external rotation to about 30 degrees. Positive Pemberton and positive Neer impingement signs, 5 out of 5 strength testing on the left with supraspinatus, infraspinatus and subscapularis. In addition to the comprehensive evaluation, assessment and plan outlined above, and as a distinct and separate element to the visit today, separate from the separate complaint of lumbar radiculopathy, lumbar films ordered at today's visit, we have made the determination to proceed with an injection to aid in the management of the patient's condition. We discussed the risks, benefits, alternatives and expected outcomes of this injection in detail, and the patient agreed to proceed. The procedure was performed as detailed below. Large Joint Arthro/Inj: L subacromial bursa 04/18/2025 1:58 PM The procedure site was prepped in the usual sterile fashion. Site: L subacromial bursa Medications: 6 mg betamethasone acetate-betamethasone sodium phosphate 6 mg/mL Anesthetics: 5 mL lidocaine (PF) 10 mg/mL (1 %) Outcome: Tolerated well, no immediate complications Post-injection instructions were reviewed with the patient and the patient voiced understanding of these instructions. Informed Consent Consent Obtained: Verbal [place] Protocol A moment to CARE was completed. SIGN IN Sign in communication not applicable due to emergent procedure. Personnel directly involved with the procedure wore the appropriate PPE. Special Equipment: N/A Patient/Surrogate Stated/Verified: Patient name, Date of , Relevant allergies and Intended procedure TIME OUT Relevant labs, photos, and/or imaging studies have been reviewed. Consent documented and matches the intended procedure. Correct side/site marked and visible. Medications required for procedure verified. No fire risk assessment and interventions applicable. No implant(s) inserted. SIGN OUT No specimen collected. No post-procedure POC communication to the patient's multidisciplinary team (including the bedside nurse for hospitalized patients) applicable. Imaging: IMPRESSION: 1. Osteoarthritis of the bilateral shoulders Supervisor Tower: JOHNSON Transcribe Date/Time: Nov 10 2024 5:27P Dictated by : WILL HALE MD This examination was interpreted and the report reviewed and electronically signed by: WILL HALE MD on Nov 10 2024 5:28PM EST Results-Findings * * *Final Report* * * DATE OF EXAM: Nov 08 2024 2:23PM WOX [id number] - XR SHLDR >/=3V AP/KILEY AP/OTHR RT / PROCEDURE REASON: multiple diagnoses * * * * Physician Interpretation * * * * SHOULDER RADIOGRAPHS - BILATERAL HISTORY: Bilateral shoulder pain, unspecified chronicity TECHNOLOGIST PROVIDED HISTORY (if applicable): pain for 2 years all around both shoulder joints no inj TECHNIQUE: XR SHLDR >/=3V AP/KILEY AP/OTHR LT, XR SHLDR >/=3V AP/KILEY AP/OTHR RT COMPARISON: Bilateral shoulder radiographs 07/26/2022 RESULT: There is generalized osteopenia. Right shoulder: The glenohumeral joint demonstrates mild arthrosis with small marginal osteophytes. The acromioclavicular joint demonstrates moderate hypertrophic arthrosis. Soft tissues appear within normal limits. Left shoulder: The glenohumeral joint demonstrates mild arthrosis with small marginal osteophytes. Resolution of previously seen calcific tendinitis The acromioclavicular joint demonstrates moderate hypertrophic arthrosis. Soft tissues appear within normal limits. Result History Supporting Subjective Information Below: Past Surgical History: PAST SURGICAL HISTORY Procedure Laterality Date APPENDECTOMY 1957 LAPAROSCOPY DIAGNOSTIC 2000 LEFT HEART CATH,PERCUTANEOUS 07/14/2020 wnl REMOVAL GALLBLADDER 05/07/2022 TONSILLECTOMY AND ADENOIDECTOMY HX 1957 TOTAL ABDOMINAL HYSTERECT W/WO RMVL TUBE OVARY 2000 Medications: Current Outpatient Medications Medication Sig alogliptin (NESINA) 25 mg tab Take 25 mg by mouth once daily. magnesium oxide (MAG-OX) 400 mg (241.3 mg magnesium) tablet Take 1 tablet by mouth two times a day. insulin glargine (LANTUS U-100 INSULIN) 100 unit/mL injection Inject 40 Units subcutaneously daily at bedtime. metFORMIN (GLUCOPHAGE) 500 mg tablet Take 2 tablets by mouth two times a day with meals. SITagliptin phosphate (JANUVIA) 100 mg tablet Take 1 tablet by mouth once daily. Cyanocobalamin 1,000 mcg TbER Take 1 tablet by mouth once daily. levothyroxine (LEVOXYL) 50 mcg tablet Take 1 tablet by mouth once daily. Take on empty stomach. For Thyroid BIOTIN ORAL Take by mouth. dilTIAZem HCl 360 mg 24 hr capsule Take 1 capsule by mouth once daily. fenofibrate nanocrystallized (TRICOR) 145 mg tablet Take 1 tablet by mouth once daily. fluticasone-salmeterol (WIXELA INHUB) 250-50 mcg/dose inhaler Inhale 1 Puff as instructed two times a day. Rinse and gargle mouth with water after each use. omeprazole (PRILOSEC) 40 mg capsule Take 1 capsule by mouth once daily. olmesartan (BENICAR) 20 mg tablet Take 1 tablet by mouth once daily. traZODone (DESYREL) 150 mg tablet Take 1 tablet by mouth daily at bedtime. albuterol HFA (PROVENTIL HFA, VENTOLIN HFA) 90 mcg/actuation inhaler Inhale 2 Puffs as instructed four times a day as needed for wheezing/shortness of breath. FOR WHEEZING AND SHORTNESS OF BREATH. MULTIVITAMIN ORAL Take by mouth once daily. Insulin Syringe-Needle U-100 (INSULIN SYRINGE) 1 mL 29 gauge x 1/2 1 Each once daily. No current facility-administered medications for this visit. Allergies: Atorvastatin, Dust, Jardiance [Empagliflozin], Mold, Thzmuwz-Xnc-Nnz Reductase Inhibitors, and Victoza [Liraglutide] ROS: General (negative for fatigue, malaise, weight loss/gain) HEENT (negative for headache, earache, recent vision changes, sinus pain, sore throat) Respiratory (no recent shortness of breath, hemoptysis) CV (negative for chest tightness, palpitations) Musculoskeletal (see HPI) Psych (no depression, anxiety) This note was partially generated using [employer] voice recognition system, and there may be some incorrect words, spellings, and punctuation that were not noted in checking the note before saving. Kristin Byrne PA-C Referring Provider: MICHELLE CEBALLOS [[id number]] Allergies As of Date: 04/18/2025 Noted Allergy Reaction ATORVASTATIN 11/08/2024 17 - Myalgia Comments: Craps in all muscles DUST 09/26/2015 3 - Cough JARDIANCE (EMPAGLIFLOZIN) 01/27/2018 14 - Other: See Comments Comments: Became suicidal MOLD 03/19/2016 12 - Shortness of Breath [id number] REDUCTASE INHIBIT*04/04/2015 17 - Myalgia VICTOZA (LIRAGLUTIDE) 01/27/2018 14 - Other: See Comments Comments: Thinks she had thyroid issues from it. Date Reviewed: 04/18/2025 Reviewed by: Hyun Mata MA - Fully Assessed Reason for Visit: Follow Up [171] Follow Up [171] Primary Visit Diagnosis:Primary osteoarthritis of left shoulder [M19.012] Other Visit Diagnoses:Lumbar radicular pain [M54.16] Type 2 diabetes mellitus with hyperglycemia, with long-term current use of insulin ([facility]) [E11.65, Z79.4] Order(s):XR LUMBAR GENERAL 3V AP/LAT/L5-S1 [[id number]] Order #: [id number] FUTURE Large Joint Arthro/Inj: L subacromial bursa [[id number]] Order #: [id number] [] betamethasone acetate-betamethasone sodium phosphate 6 mg injection (CELESTONE)Disp: Rfl: [] lidocaine (PF) 10 mg/mL (1 %) 5 mL injection (XYLOCAINE)Disp: Rfl: Prescriptions as of 04/18/2025 - alogliptin (NESINA) 25 mg tab Take 25 mg by mouth once daily. - magnesium oxide (MAG-OX) 400 mg (241.3 mg magnesium) tablet Take 1 tablet by mouth two times a day. - insulin glargine (LANTUS U-100 INSULIN) 100 unit/mL injection Inject 40 Units subcutaneously daily at bedtime. - metFORMIN (GLUCOPHAGE) 500 mg tablet Take 2 tablets by mouth two times a day with meals. - SITagliptin phosphate (JANUVIA) 100 mg tablet Take 1 tablet by mouth once daily. - Cyanocobalamin 1,000 mcg TbER Take 1 tablet by mouth once daily. - levothyroxine (LEVOXYL) 50 mcg tablet Take 1 tablet by mouth once daily. Take on empty stomach. For Thyroid - BIOTIN ORAL Take by mouth. - dilTIAZem HCl 360 mg 24 hr capsule Take 1 capsule by mouth once daily. - fenofibrate nanocrystallized (TRICOR) 145 mg tablet Take 1 tablet by mouth once daily. - fluticasone-salmeterol (WIXELA INHUB) 250-50 mcg/dose inhaler Inhale 1 Puff as instructed two times a day. Rinse and gargle mouth with water after each use. - omeprazole (PRILOSEC) 40 mg capsule Take 1 capsule by mouth once daily. - Insulin Syringe-Needle U-100 (INSULIN SYRINGE) 1 mL 29 gauge x 1/2 1 Each once daily. - olmesartan (BENICAR) 20 mg tablet Take 1 tablet by mouth once daily. - traZODone (DESYREL) 150 mg tablet Take 1 tablet by mouth daily at bedtime. - albuterol HFA (PROVENTIL HFA, VENTOLIN HFA) 90 mcg/actuation inhaler Inhale 2 Puffs as instructed four times a day as needed for wheezing/shortness of breath. FOR WHEEZING AND SHORTNESS OF BREATH. - MULTIVITAMIN ORAL Take by mouth once daily. Meds Comments as of 06/07/2015: Patient has broken out recently feel like it is from her Trazadone Problem List As Of Date 04/18/2025 Noted Resolved Type 2 diabetes mellitus with stage 3a chronic *04/04/2015 Hypertension [I10] 04/04/2015 Hypothyroidism [E03.9] 04/04/2015 Morbid obesity (HCC) [E66.01] 04/04/2015 03/23/2019 Moderate persistent asthma without complication*07/11/2015 KAM (obstructive sleep apnea) CPAP intolerant [*09/26/2015 Insomnia [G47.00] 03/19/2016 RLS (restless legs syndrome) [G25.81] 02/15/2019 Kidney disease [N28.9] 03/23/2019 07/06/2019 Class 3 severe obesity with body mass index (BM*03/23/2019 Edema [R60.9] 03/23/2019 Other hyperlipidemia [E78.49] 03/23/2019 Stable angina pectoris [I20.89] 06/26/2020 04/01/2025 SOB (shortness of breath) [R06.02] 07/14/2020 05/01/2022 Multiple gallstones [K80.20] 03/20/2022 04/01/2023 Chronic pain of both shoulders [M25.511, G89.29*07/29/2022 Prescriptions ordered this encounter Disp Refills Start End BETAMETHASONE ACETATE AND SODIUM EDIN* 04/18/2025 04/18/2025 Route: Inj-ORTHO LIDOCAINE (PF) 10 MG/ML (1 %) INJECT* 04/18/2025 04/18/2025 Route: Inj-ORTHO Encounter Status:Closed by KRISTIN BYRNE on 04/18/25 ECHO Observed: 04/12/2025 1:43 PM Status: F Source: [facility] Echocardiography Report: Tra nsthoracic Echo [facility] Date of service: 04/12/2025 1:43:08 PM DATA ARCHITECT Ordering physician: ALVIN GIRALDO Exam indication: Shortness of Breath Technologist: Lisseth Olmedo [facility] Interpreting physician: Ritika Apodaca MD PATIENT: Name: MRS. CHLOE GUILLORY : 1950 Age: 74 years Gender: F History of hypertension and diabetes mellitus. Primary rhythm: sinus. Height: 154.90 cm BSA: 2.11 m Weight: 103.20 kg BMI: 43.0 kg/m Heart rate 75 bpm Technically difficult exam due to body habitus and lung interference. Color Doppler was utilized to interrogate the cardiac valves assessed and spectral Doppler was utilized to determine the flow velocities and pressure gradients reported in this exam. MEASUREMENTS: Value Indexed Normal Max aortic dimension 2.9 cm Ao < 3.8 Left atrial volume 47 ml (biplane A-L) 22 ml/m Yordy <= 34 LV ID (diastole) 4.8 cm (2D) 2.29 cm/m LV ID (systole) 2.6 cm (2D) 1.25 cm/m IVS, leaflet tips 0.8 cm (2D) Posterior wall thickness 0.8 cm (2D) Left ventricular mass 133 g (2D) 63 g/m LV stroke volume 48 ml (2D 4-ch.) LV end diastolic volume 74 ml (2D 4-ch.) 35.1 ml/m 29<=EDVi<62 LV end systolic volume 26 ml (2D 4-ch.) 12.3 ml/m Ejection Fraction 65 % (2D 4-ch.) EF > 54 FINDINGS: LEFT VENTRICLE The left ventricle is normal in size. Left ventricular systolic function is normal. Indeterminate left ventricular diastolic function. Mitral annular lateral E/e': 5.1. Mitral annular septal E/e': 9.3. Wall Motion: All scored segments are normal. RIGHT VENTRICLE The right ventricle is normal in size. Right ventricular systolic function is normal. RV systolic tissue Doppler velocity is 14.0 cm/s. Tricuspid annular displacement is 2.0 cm. Estimated right ventricular systolic pressure is 36 mmHg consistent with mild pulmonary hypertension. Estimated right atrial pressure is 3 mmHg (although IVC not seen). LEFT ATRIUM The left atrial cavity is normal in size. Pulmonary Veins: The pulmonary venous pattern showed normal systolic flow. RIGHT ATRIUM The right atrial cavity is normal in size. MITRAL VALVE The mitral valve leaflets are structurally normal. There is no mitral valve regurgitation. The pressure half time is 71 msec. The peak mitral E/A ratio is 0.79. The average mitral E/e' ratio is 7.2. The mitral flow deceleration time is 245 msec. TRICUSPID VALVE The tricuspid valve leaflets are structurally normal. There is mild to moderate (1+ - 2+) tricuspid valve regurgitation. AORTIC VALVE There is no aortic valve stenosis. There is trace aortic valve regurgitation. Tricuspid aortic valve. There is mild thickening. There is mild calcification. The peak gradient is 15 mmHg (peak velocity = 192.3 cm/s). PULMONIC VALVE The pulmonic valve cusps are structurally normal. There is no pulmonic valve stenosis. There is no pulmonic valve regurgitation. AORTA The visualized aorta is normal in size. Measurements - Mid ascending aorta 2.9 cm. INTERATRIAL SEPTUM There is no evidence of intracardiac shunting as detected by Doppler. PERICARDIUM There is no pericardial effusion. There is an epicardial fat pad. CONCLUSIONS: - Technically difficult exam due to body habitus and lung interference. - Exam indication: Shortness of Breath - The left ventricle is normal in size. Left ventricular systolic function is normal. EF = 65 5% (2D 4-ch.). Indeterminate left ventricular diastolic function. - The right ventricle is normal in size. Right ventricular systolic function is normal. - Mild to moderate (1-2+) tricuspid valve regurgitation. - Estimated right ventricular systolic pressure is 36 mmHg consistent with mild pulmonary hypertension. Estimated right atrial pressure is 3 mmHg (although IVC not seen). - Exam was compared with the prior echocardiographic exam performed on 07/21/2023, no significant change. * * * Final * * * [employer] : [id number] Observed: 04/01/2025 2:00 PM Status: COMPLETED Source: [facility] Office Visit (CARDMM) CHLOE GUILLORY ([id number]) 1950 F Date Time Provider Department 04/01/25 2:00 PM ALVIN GIRALDO [facility] During your visit today, we recorded the following information about you: Pulse Blood pressure Weight Height 68/minute 112/64 103.2 kg 1.549 m Alvin Giraldo MD 04/01/2025 2:24 PM Signed Salvador Ramirez Department of Cardiovascular Medicine Heart, Vascular and Thoracic [place] [facility] April 01, 2025 OUTPATIENT VISIT TYPE Established CHIEF COMPLAINT: Patient is following-up for HTN, dyslipidemia, stable angina, obstructive coronary disease. HISTORY OF PRESENT ILLNESS: Ms. Guillory is 74 year old female with a history of CAD, T2DM, hypertension, hypercholesterolemia, and KAM, presenting for evaluation of chest pain and dyspnea. S/P Diagnostic Cardiac Cath 2019 with no stent. Today, Patient has symptoms of chest pain, chest pressure, heaviness or tightness at rest or with exertion. Lasts for 3-5 seconds. Does not occur when moving trunk or deep inhalation. Reports always being short of breath. Currently taking diltiazem 360 mg, fenofibrate 145mg, metformin 500mg, olmesartan 20mg, januvia 100mg. Patient has mild exertional shortness of breath. Dizziness - No Palpitations - No Leg swelling - No Fatigue - No Snoring - Yes Sleep apnea - Yes, but does not use the CPAP machine. Patient is not a current smoker of tobacco products. Patient is not using alcohol in excess amount. Patient is not using recreational or illicit drugs Drinks 2 cans of soda daily. The patient reports experiencing nightly episodes of sharp, stabbing chest pain lasting 2-4 seconds. These episodes occur while she is at rest, such as when watching TV, and are not triggered by deep breathing or chest movement. She also reports persistent dyspnea, which worsens with any physical activity. She denies any history of smoking and consumes minimal coffee and soda. She does not drink alcohol. She reports worsening dizziness, particularly when tilting her head down, such as when looking into the refrigerator. She also experiences palpitations. She denies any leg swelling. She has a history of KAM and reports severe snoring. She previously attempted CPAP therapy but found it intolerable. She reports poor sleep quality. She experiences chronic back and shoulder pain but denies any abdominal pain. She underwent a cardiac catheterization 5 years ago at [facility], which was normal. An ECG performed today was also normal. Lab tests from last month showed normal potassium and liver function, with cholesterol levels reported as normal but could be improved. Previous lab results from July of last year indicated slightly elevated cholesterol levels. PAST MEDICAL HISTORY Diagnosis Date Hypertension Hypothyroidism Insomnia 03/19/2016 Moderate persistent asthma without complication ([facility]) 07/11/2015 07/07/15 Methacholine Inhalation Challenge: 35% drop FEV1 at 2.5 mg/mL. Morbid obesity ([facility]) 04/04/2015 Patient has morbid obesity. Multiple gallstones 03/20/2022 Resolved with lap choly 05/07/2022 KAM (obstructive sleep apnea) 09/26/2015 DME: [employer] Other hyperlipidemia 03/23/2019 RLS (restless legs syndrome) 02/15/2019 Stable angina pectoris 06/26/2020 Type 2 diabetes mellitus with stage 3 chronic kidney disease, with long-term current use of insulin ([facility]) 04/04/2015 Dx: age 51. On metformin and victoza which she does not think works well for her lately She was started on jardiance which made her have suicidal ideation So she stopped the medication. PAST SURGICAL HISTORY Procedure Laterality Date APPENDECTOMY 1957 LAPAROSCOPY DIAGNOSTIC 2000 LEFT HEART CATH,PERCUTANEOUS 07/14/2020 wnl REMOVAL GALLBLADDER 05/07/2022 TONSILLECTOMY AND ADENOIDECTOMY HX 1957 TOTAL ABDOMINAL HYSTERECT W/WO RMVL TUBE OVARY 2000 Social History Tobacco Use Smoking status: Never Smokeless tobacco: Never Tobacco comments: NO smoking in childhood home. Spouse smokes pipe, not around patient. Vaping Use Vaping status: Never Used Substance Use Topics Alcohol use: No Drug use: No FAMILY HISTORY Adopted: Yes Family history unknown: Yes ALLERGIES Allergen Reactions Atorvastatin Myalgia Craps in all muscles Dust Cough Jardiance [Empaglif* Other: See Comments Became suicidal Mold Shortness of Breath Pzjzwnw-Avk-Scv Red* Myalgia Victoza [Liraglutid* Other: See Comments Thinks she had thyroid issues from it. CURRENT MEDICATIONS: alogliptin (NESINA) 25 mg tab Take 25 mg by mouth once daily. magnesium oxide (MAG-OX) 400 mg (241.3 mg magnesium) tablet Take 1 tablet by mouth two times a day. insulin glargine (LANTUS U-100 INSULIN) 100 unit/mL injection Inject 40 Units subcutaneously daily at bedtime. metFORMIN (GLUCOPHAGE) 500 mg tablet Take 2 tablets by mouth two times a day with meals. SITagliptin phosphate (JANUVIA) 100 mg tablet Take 1 tablet by mouth once daily. Cyanocobalamin 1,000 mcg TbER Take 1 tablet by mouth once daily. levothyroxine (LEVOXYL) 50 mcg tablet Take 1 tablet by mouth once daily. Take on empty stomach. For Thyroid BIOTIN ORAL Take by mouth. dilTIAZem HCl 360 mg 24 hr capsule Take 1 capsule by mouth once daily. fenofibrate nanocrystallized (TRICOR) 145 mg tablet Take 1 tablet by mouth once daily. fluticasone-salmeterol (WIXELA INHUB) 250-50 mcg/dose inhaler Inhale 1 Puff as instructed two times a day. Rinse and gargle mouth with water after each use. omeprazole (PRILOSEC) 40 mg capsule Take 1 capsule by mouth once daily. Insulin Syringe-Needle U-100 (INSULIN SYRINGE) 1 mL 29 gauge x 1/2 1 Each once daily. olmesartan (BENICAR) 20 mg tablet Take 1 tablet by mouth once daily. traZODone (DESYREL) 150 mg tablet Take 1 tablet by mouth daily at bedtime. albuterol HFA (PROVENTIL HFA, VENTOLIN HFA) 90 mcg/actuation inhaler Inhale 2 Puffs as instructed four times a day as needed for wheezing/shortness of breath. FOR WHEEZING AND SHORTNESS OF BREATH. MULTIVITAMIN ORAL Take by mouth once daily. REVIEW OF SYSTEMS: The following systems were reviewed with the patient and are unremarkable other than as described below. SYSTEMIC: No fever, chills, or change in weight or appetite HEENT: No recent change in vision or hearing. Respiratory: No hemoptysis, cough CARDIOVASCULAR: See HPI. GI: No recent nausea, vomiting or diarrhea. : No recent hematuria or dysuria. SKIN: No recent itching or eruption. PSYCH: No recent active anxiety or depression. HEMATOLOGY/ONCOLOGY: No recent diagnosis of bleeding or cancer. ENDOCRINE: No recent polyuria or heat intolerance. NEURO: No recent TIA, stroke or seizures. RHEUMATOLOGY: No recent active connective tissue disease. PHYSICAL EXAM: BP 112/64 (BP Position: Sitting) Pulse 68 Ht 154.9 cm (5' 1) Wt 103.2 kg (227 lb 8.2 oz) SpO2 96% BMI 42.99 kg/m? Last 2 Encounter Wt Readings: Date: Wt: 04/01/2025 103.2 kg (227 lb 8.2 oz) 02/11/2025 103.4 kg (228 lb) Awake, alert, oriented times 3. Patient is not in acute respiratory distress. SKIN: No erythematous rash is noted Head : Normocephalic. Face is symmetrical ENT: Pharyngeal structures are not crowded and uvula is well visualized. Mallampati 3 NECK: Supple. No JVD. No carotid bruit. No thyromegaly. LUNGS: Clear to auscultation bilaterally. CARDIAC: Regular Heart rhythm with S1 and S2, no systolic murmur. ABDOMEN: Soft, nontender, bowel sounds present. EXTREMITIES: No cyanosis. No clubbing. Mild edema is noted on the right leg and ankles. PULSES: DP and PT Peripheral pulses are palpable. 2+ b/l NEURO: Non-focal. Moves all extremities. MSK: No significant joint deformities noted Last Labs: Sodium Date Value Ref Range Status 02/11/2025 139 136 - 144 mmol/L Final Potassium Date Value Ref Range Status 03/14/2025 4.5 3.7 - 5.1 mmol/L Final Chloride Date Value Ref Range Status 02/11/2025 103 98 - 107 mmol/L Final CO2 Date Value Ref Range Status 02/11/2025 24 22 - 30 mmol/L Final Glucose Date Value Ref Range Status 02/11/2025 169 (H) 74 - 99 mg/dL Final Comment: The [place] [employer] (ADA) provides guidance for cutoff values for fasting glucose and random glucose. The ADA defines fasting as no caloric intake for at least 8 hours. Fasting plasma glucose results between 100 to 125 mg/dL indicate increased risk for diabetes (prediabetes). Fasting plasma glucose results greater than or equal to 126 mg/dL meet the criteria for diagnosis of diabetes. In the absence of unequivocal hyperglycemia, results should be confirmed by repeat testing. In a patient with classic symptoms of hyperglycemia or hyperglycemic crisis, random plasma glucose results greater than or equal to 200 mg/dL meet the criteria for diagnosis of diabetes. Reference: Standards of Medical Care in Diabetes 2016, [place] [employer]. Diabetes Care. 2016.39(Suppl 1). BUN Date Value Ref Range Status 02/11/2025 28 (H) 7 - 21 mg/dL Final Creatinine Date Value Ref Range Status 02/11/2025 1.06 (H) 0.58 - 0.96 mg/dL Final Calcium, Total Date Value Ref Range Status 02/11/2025 9.6 8.5 - 10.2 mg/dL Final Albumin Date Value Ref Range Status 02/11/2025 4.1 3.9 - 4.9 g/dL Final Protein, Total Date Value Ref Range Status 02/11/2025 7.0 6.3 - 8.0 g/dL Final AST Date Value Ref Range Status 02/11/2025 22 13 - 35 U/L Final ALT Date Value Ref Range Status 02/11/2025 17 7 - 38 U/L Final Alkaline Phosphatase Date Value Ref Range Status 02/11/2025 60 34 - 123 U/L Final Bilirubin, Total Date Value Ref Range Status 02/11/2025 0.2 0.2 - 1.3 mg/dL Final Triglyceride Date Value Ref Range Status 02/11/2025 117 <150 mg/dL Final Comment: <150 mg/dL, Normal 150-199 mg/dL, Borderline high 200-499 mg/dL, High >499 mg/dL, Very high Cholesterol, Total Date Value Ref Range Status 02/11/2025 193 <200 mg/dL Final Comment: <200 mg/dL, Desirable 200-239 mg/dL, Borderline high >239 mg/dL, High HDL Cholesterol Date Value Ref Range Status 02/11/2025 53 >39 mg/dL Final Comment: 40-59 mg/dL, Acceptable >59 mg/dL, High: Negative risk factor for coronary heart disease <40 mg/dL, Low: Positive risk factor for coronary heart disease LDL Cholesterol, Calculated Date Value Ref Range Status 02/11/2025 119 (H) <100 mg/dL Final Comment: <100 mg/dL, Optimal 100-129 mg/dL, Near optimal/above optimal 130-159 mg/dL, Borderline high 160-189 mg/dL, High >189 mg/dL, Very high Secondary prevention optimal LDL Cholesterol levels are recommended to be <70 mg/dL LDL cholesterol is calculated using the Hsu-NIH equation. Cardiovascular Testing: I have personally reviewed the Electrocardiogram, Chest X-ray, Laboratory Testing, Echocardiogram. Last ECHO Result Conclusion ECHO Collected: 07/21/2023 1:11 PM (Final result) Impression: CONCLUSIONS: - Technically difficult exam due to body habitus. - Exam indication: Shortness of Breath - The left ventricle is normal in size. Left ventricular systolic function is normal. EF = 62 ? 5% (2D biplane) Grade I left ventricular diastolic dysfunction. - The right ventricle is normal in size. Right ventricular systolic function is normal. - There are no significant valvular abnormalities. - Exam was compared with the prior echocardiographic exam performed on 07/20/2020, no sigificant change. * * * Final * * * Last EKG Result Conclusion ECG COMPLETE Collected: 04/01/2025 1:55 PM (Preliminary result) Impression: NORMAL SINUS RHYTHM NORMAL ECG IMPRESSION / RECOMMENDATIONS / PLAN: Encounter Diagnosis ICD-10-CM 1. Coronary artery disease of [place] heart with stable angina pectoris, unspecified vessel or lesion type I25.118 2. Pulmonary hypertension (HCC) I27.20 3. Dyslipidemia E78.5 1. Pulmonary hypertension (HCC) (I27.20) Patient reports persistent dyspnea and palpitations. Nocturnal snoring and sleep apnea may contribute to symptoms. No evidence of lower extremity edema on exam. - Ordered echocardiogram to evaluate cardiac function and rule out pulmonary hypertension. - Discussed potential benefits of weight loss and management of KAM to alleviate symptoms. 2. Dyslipidemia (E78.5) Other hyperlipidemia (E78.49) Previous lab results from July indicated elevated cholesterol levels. Recent labs show improved cholesterol levels, currently managed with fenofibrate. - Continue fenofibrate therapy. - Emphasized dietary modifications to further improve lipid profile. 3. Coronary artery disease of [place] heart with stable angina pectoris, unspecified vessel or lesion type (I25.118) Patient experiences brief episodes of precordial pain lasting 2-4 seconds, described as stabbing. Pain is not associated with exertion or specific movements. Previous cardiac catheterization 5 years ago was normal. Recent ECG is normal. - Ordered echocardiogram to assess cardiac function. - Discussed that current chest pain is atypical and unlikely cardiac in origin; no stress test indicated at this time. - Advised to monitor for any changes in pain quality, such as heaviness or pressure, which would warrant further evaluation. 4. Type 2 diabetes mellitus without ophthalmic manifestations (HCC) (E11.9) Diabetes managed with insulin, metformin, and Januvia. Recent lab results show normal potassium and liver function. - Continue current diabetes medications. - Encouraged dietary modifications to aid in weight loss and improve glycemic control. 5. KAM (obstructive sleep apnea) (G47.33) Patient reports severe snoring and poor sleep quality. Previous CPAP therapy was unsuccessful. - Recommended consultation with a dentist for a mandibular advancement device to improve airway patency during sleep. 6. Primary hypertension (I10) Blood pressure well-controlled on current regimen of diltiazem and olmesartan. Recent reading was 112/64 mmHg. - Continue current antihypertensive medications. 7. Hypothyroidism, unspecified type (E03.9) 8. Class 3 severe obesity with body mass index (BMI) of 40.0 to 44.9 in adult ([facility]) (E66.813) Patient reports difficulty with weight loss despite previous attempts. - Discussed dietary modifications, including reducing intake of carbohydrates and fatty foods, and increasing consumption of vegetables, salads, fish, and chicken. - Offered referral to a health and head strength and conditioning coach for additional support in weight management. 9. Precordial pain (R07.2) with pains all over her body could be due to fibromyalgia. Episodes of brief, stabbing precordial pain lasting 2-4 seconds. Pain is not associated with exertion or specific movements. Recent ECG is normal. - I ordered echocardiogram to assess cardiac function. - Discussed that current chest pain is atypical and unlikely cardiac in origin; no stress test indicated at this time. I offered to do a pharmacological nuclear SPECT scan on her but she did not want to do this at present. - Advised to monitor for any changes in pain quality, such as heaviness or pressure, which would warrant further evaluation. Dyslipidemia Continue with medication management as directed. DM2 Continue with medication management as directed. 3. KAM Patient does not tolerate CPAP machine. Recommend dentist or teradata solution architect consult for mouthgard to improve sleep hygiene. 4. Obesity Patient is counseled at length regarding importance of aggressive risk factor modification including compliance with medication, increased activity/exercise, low cholesterol low fat diet, low salt diet. Yuan Recommended diet: Low carbohydrate and Low saturated fat, low simple sugar, high fiber diet. I gave her a brochure of Mediterranean diet to help with weight loss. Exercise minimally 150 minutes per week, increase as tolerated. Adequate hydration. Follow up PRN The patient note was entered by RAOUL Kirkpatrick-3, under revision and guidance of Alvin Giraldo MD on April 01, 2025 at 1:53 PM. Alvin Giraldo MD, FACC. [employer], Dept of Cardiology, [facility]. Staff Pricing Director, Heart, Vascular and Thoracic [place], [facility]. Alvin Giraldo MD 04/01/2025 2:13 PM Signed We discussed your chest pain and shortness of breath: - Your chest pain does not appear to be cardiac in origin based on your symptoms and normal ECG results. It may be musculoskeletal or related to your lungs. - I have ordered an echocardiogram (ultrasound of your heart) to ensure there are no blockages contributing to your symptoms. You do not need a stress test at this time unless your chest pain changes to a heaviness, pressure, or tightness. - Continue taking your current medications, including Diltiazem, which helps keep your heart rate steady. We discussed your sleep apnea and snoring: - Since you are not using a CPAP machine, I recommend consulting a dentist about a mouth device that can help improve your sleep by keeping your tongue down and jaw slightly forward. This may reduce your fatigue, shortness of breath, and palpitations. - Please let me know if you need help finding a dentist in your area. We discussed your cholesterol and weight management: - Your cholesterol levels are currently normal but could be improved. Continue taking Fenofibrate as prescribed to manage your triglycerides. - Work on weight loss by following a healthy diet. Avoid bread, carbohydrates, pasta, rice, potatoes, ice cream, and cheese. Focus on eating more vegetables, salads, fish, and chicken (not fried). - If you would like additional support, I can refer you to a dietitian or a head strength and conditioning coach. Wellness coaching can also be done remotely via phone or computer. We discussed your overall health: - Your blood pressure today was 112/64, which is good. Your recent lab results, including potassium and liver function, were normal. - Continue taking your diabetes, blood pressure, and cholesterol medications as prescribed. Follow-Up: - Schedule an echocardiogram as discussed. - Consider consulting a dentist for a sleep apnea mouth device. - Contact our office if you experience new or worsening symptoms, such as chest pain that feels heavy, tight, or like pressure, or if you develop palpitations. Referring Provider: MICHELLE CEBALLOS [[id number]] Allergies As of Date: 04/01/2025 Noted Allergy Reaction ATORVASTATIN 11/08/2024 17 - Myalgia Comments: Craps in all muscles DUST 09/26/2015 3 - Cough JARDIANCE (EMPAGLIFLOZIN) 01/27/2018 14 - Other: See Comments Comments: Became suicidal MOLD 03/19/2016 12 - Shortness of Breath [id number] REDUCTASE INHIBIT*04/04/2015 17 - Myalgia VICTOZA (LIRAGLUTIDE) 01/27/2018 14 - Other: See Comments Comments: Thinks she had thyroid issues from it. Date Reviewed: 04/01/2025 Reviewed by: Alvin Giraldo MD - Fully Assessed Reason for Visit: New Patient [[id number]] Primary Visit Diagnosis:Coronary artery disease of [place] heart with stable angina pectoris, unspecified vessel or lesion type [I25.118] Other Visit Diagnoses:Pulmonary hypertension (HCC) [I27.20] Dyslipidemia [E78.5] Type 2 diabetes mellitus without ophthalmic manifestations (HCC) [E11.9] KAM (obstructive sleep apnea) CPAP intolerant [G47.33] Primary hypertension [I10] Other hyperlipidemia [E78.49] Hypothyroidism, unspecified type [E03.9] Class 3 severe obesity with body mass index (BMI) of 40.0 to 44.9 in adult (HCC) [E66.813, Z68.41] Precordial pain [R07.2] Order(s):CONSULT TO CARDIOLOGY [9004] Order #: [id number]: 1 ECG COMPLETE [ECG01] Order #: [id number]. #:[id number]--YINQsde ECHO [783664] Order #: [id number]: 1 FUTURE Prescriptions as of 04/01/2025 - alogliptin (NESINA) 25 mg tab Take 25 mg by mouth once daily. - magnesium oxide (MAG-OX) 400 mg (241.3 mg magnesium) tablet Take 1 tablet by mouth two times a day. - insulin glargine (LANTUS U-100 INSULIN) 100 unit/mL injection Inject 40 Units subcutaneously daily at bedtime. - metFORMIN (GLUCOPHAGE) 500 mg tablet Take 2 tablets by mouth two times a day with meals. - SITagliptin phosphate (JANUVIA) 100 mg tablet Take 1 tablet by mouth once daily. - Cyanocobalamin 1,000 mcg TbER Take 1 tablet by mouth once daily. - levothyroxine (LEVOXYL) 50 mcg tablet Take 1 tablet by mouth once daily. Take on empty stomach. For Thyroid - BIOTIN ORAL Take by mouth. - dilTIAZem HCl 360 mg 24 hr capsule Take 1 capsule by mouth once daily. - fenofibrate nanocrystallized (TRICOR) 145 mg tablet Take 1 tablet by mouth once daily. - fluticasone-salmeterol (WIXELA INHUB) 250-50 mcg/dose inhaler Inhale 1 Puff as instructed two times a day. Rinse and gargle mouth with water after each use. - omeprazole (PRILOSEC) 40 mg capsule Take 1 capsule by mouth once daily. - Insulin Syringe-Needle U-100 (INSULIN SYRINGE) 1 mL 29 gauge x 1/2 1 Each once daily. - olmesartan (BENICAR) 20 mg tablet Take 1 tablet by mouth once daily. - traZODone (DESYREL) 150 mg tablet Take 1 tablet by mouth daily at bedtime. - albuterol HFA (PROVENTIL HFA, VENTOLIN HFA) 90 mcg/actuation inhaler Inhale 2 Puffs as instructed four times a day as needed for wheezing/shortness of breath. FOR WHEEZING AND SHORTNESS OF BREATH. - MULTIVITAMIN ORAL Take by mouth once daily. Meds Comments as of 06/07/2015: Patient has broken out recently feel like it is from her Trazadone Problem List As Of Date 04/01/2025 Noted Resolved Type 2 diabetes mellitus with stage 3a chronic *04/04/2015 Hypertension [I10] 04/04/2015 Hypothyroidism [E03.9] 04/04/2015 Morbid obesity (HCC) [E66.01] 04/04/2015 03/23/2019 Moderate persistent asthma without complication*07/11/2015 KAM (obstructive sleep apnea) CPAP intolerant [*09/26/2015 Insomnia [G47.00] 03/19/2016 RLS (restless legs syndrome) [G25.81] 02/15/2019 Kidney disease [N28.9] 03/23/2019 07/06/2019 Class 3 severe obesity with body mass index (BM*03/23/2019 Edema [R60.9] 03/23/2019 Other hyperlipidemia [E78.49] 03/23/2019 Stable angina pectoris [I20.89] 06/26/2020 04/01/2025 SOB (shortness of breath) [R06.02] 07/14/2020 05/01/2022 Multiple gallstones [K80.20] 03/20/2022 04/01/2023 Chronic pain of both shoulders [M25.511, G89.29*07/29/2022 Other instructions from your clinician: We discussed your chest pain and shortness of breath: - Your chest pain does not appear to be cardiac in origin based on your symptoms and normal ECG results. It may be musculoskeletal or related to your lungs. - I have ordered an echocardiogram (ultrasound of your heart) to ensure there are no blockages contributing to your symptoms. You do not need a stress test at this time unless your chest pain changes to a heaviness, pressure, or tightness. - Continue taking your current medications, including Diltiazem, which helps keep your heart rate steady. We discussed your sleep apnea and snoring: - Since you are not using a CPAP machine, I recommend consulting a dentist about a mouth device that can help improve your sleep by keeping your tongue down and jaw slightly forward. This may reduce your fatigue, shortness of breath, and palpitations. - Please let me know if you need help finding a dentist in your area. We discussed your cholesterol and weight management: - Your cholesterol levels are currently normal but could be improved. Continue taking Fenofibrate as prescribed to manage your triglycerides. - Work on weight loss by following a healthy diet. Avoid bread, carbohydrates, pasta, rice, potatoes, ice cream, and cheese. Focus on eating more vegetables, salads, fish, and chicken (not fried). - If you would like additional support, I can refer you to a dietitian or a head strength and conditioning coach. Wellness coaching can also be done remotely via phone or computer. We discussed your overall health: - Your blood pressure today was 112/64, which is good. Your recent lab results, including potassium and liver function, were normal. - Continue taking your diabetes, blood pressure, and cholesterol medications as prescribed. Follow-Up: - Schedule an echocardiogram as discussed. - Consider consulting a dentist for a sleep apnea mouth device. - Contact our office if you experience new or worsening symptoms, such as chest pain that feels heavy, tight, or like pressure, or if you develop palpitations. Disposition: Return in about 1 year (around 04/01/2026). Follow-up and Disposition History for Encounter Date Provider Department Center 04/01/2025 [id number], QARAB [facility] Encounter Status:Closed by ALVIN GIRALDO on 04/01/25 PROGRESS Observed: 04/01/2025 2:00 PM Status: COMPLETED Source: [facility] ID: [id number] Author: ALVIN GIRALDO MD Service: ? Author Type: Physician Type: Progress Notes Filed: 04/01/2025 14:24 Note Text: Salvador Ramirez Department of Cardiovascular Medicine Heart, Vascular and Thoracic [place] SECTION OF REGIONAL CARDIOLOGY April 01, 2025 OUTPATIENT VISIT TYPE Established CHIEF COMPLAINT: Patient is following-up for HTN, dyslipidemia, stable angina, obstructive coronary disease. HISTORY OF PRESENT ILLNESS: Ms. Guillory is 74 year old female with a history of CAD, T2DM, hypertension, hypercholesterolemia, and KAM, presenting for evaluation of chest pain and dyspnea. S/P Diagnostic Cardiac Cath 2019 with no stent. Today, Patient has symptoms of chest pain, chest pressure, heaviness or tightness at rest or with exertion. Lasts for 3-5 seconds. Does not occur when moving trunk or deep inhalation. Reports always being short of breath. Currently taking diltiazem 360 mg, fenofibrate 145mg, metformin 500mg, olmesartan 20mg, januvia 100mg. Patient has mild exertional shortness of breath. Dizziness - No Palpitations - No Leg swelling - No Fatigue - No Snoring - Yes Sleep apnea - Yes, but does not use the CPAP machine. Patient is not a current smoker of tobacco products. Patient is not using alcohol in excess amount. Patient is not using recreational or illicit drugs Drinks 2 cans of soda daily. The patient reports experiencing nightly episodes of sharp, stabbing chest pain lasting 2-4 seconds. These episodes occur while she is at rest, such as when watching TV, and are not triggered by deep breathing or chest movement. She also reports persistent dyspnea, which worsens with any physical activity. She denies any history of smoking and consumes minimal coffee and soda. She does not drink alcohol. She reports worsening dizziness, particularly when tilting her head down, such as when looking into the refrigerator. She also experiences palpitations. She denies any leg swelling. She has a history of KAM and reports severe snoring. She previously attempted CPAP therapy but found it intolerable. She reports poor sleep quality. She experiences chronic back and shoulder pain but denies any abdominal pain. She underwent a cardiac catheterization 5 years ago at [facility], which was normal. An ECG performed today was also normal. Lab tests from last month showed normal potassium and liver function, with cholesterol levels reported as normal but could be improved. Previous lab results from July of last year indicated slightly elevated cholesterol levels. PAST MEDICAL HISTORY Diagnosis Date Hypertension Hypothyroidism Insomnia 03/19/2016 Moderate persistent asthma without complication (HCC) 07/11/2015 07/07/15 Methacholine Inhalation Challenge: 35% drop FEV1 at 2.5 mg/mL. Morbid obesity (HCC) 04/04/2015 Patient has morbid obesity. Multiple gallstones 03/20/2022 Resolved with lap choly 05/07/2022 KAM (obstructive sleep apnea) 09/26/2015 DME: [employer] Other hyperlipidemia 03/23/2019 RLS (restless legs syndrome) 02/15/2019 Stable angina pectoris 06/26/2020 Type 2 diabetes mellitus with stage 3 chronic kidney disease, with long-term current use of insulin (HCC) 04/04/2015 Dx: age 51. On metformin and victoza which she does not think works well for her lately She was started on jardiance which made her have suicidal ideation So she stopped the medication. PAST SURGICAL HISTORY Procedure Laterality Date APPENDECTOMY 1957 LAPAROSCOPY DIAGNOSTIC 2000 LEFT HEART CATH,PERCUTANEOUS 07/14/2020 wnl REMOVAL GALLBLADDER 05/07/2022 TONSILLECTOMY AND ADENOIDECTOMY HX 1957 TOTAL ABDOMINAL HYSTERECT W/WO RMVL TUBE OVARY 2000 Social History Tobacco Use Smoking status: Never Smokeless tobacco: Never Tobacco comments: NO smoking in childhood home. Spouse smokes pipe, not around patient. Vaping Use Vaping status: Never Used Substance Use Topics Alcohol use: No Drug use: No FAMILY HISTORY Adopted: Yes Family history unknown: Yes ALLERGIES Allergen Reactions Atorvastatin Myalgia Craps in all muscles Dust Cough Jardiance [Empaglif* Other: See Comments Became suicidal Mold Shortness of Breath Thxbjhe-Brv-Upk Red* Myalgia Victoza [Liraglutid* Other: See Comments Thinks she had thyroid issues from it. CURRENT MEDICATIONS: alogliptin (NESINA) 25 mg tab Take 25 mg by mouth once daily. magnesium oxide (MAG-OX) 400 mg (241.3 mg magnesium) tablet Take 1 tablet by mouth two times a day. insulin glargine (LANTUS U-100 INSULIN) 100 unit/mL injection Inject 40 Units subcutaneously daily at bedtime. metFORMIN (GLUCOPHAGE) 500 mg tablet Take 2 tablets by mouth two times a day with meals. SITagliptin phosphate (JANUVIA) 100 mg tablet Take 1 tablet by mouth once daily. Cyanocobalamin 1,000 mcg TbER Take 1 tablet by mouth once daily. levothyroxine (LEVOXYL) 50 mcg tablet Take 1 tablet by mouth once daily. Take on empty stomach. For Thyroid BIOTIN ORAL Take by mouth. dilTIAZem HCl 360 mg 24 hr capsule Take 1 capsule by mouth once daily. fenofibrate nanocrystallized (TRICOR) 145 mg tablet Take 1 tablet by mouth once daily. fluticasone-salmeterol (WIXELA INHUB) 250-50 mcg/dose inhaler Inhale 1 Puff as instructed two times a day. Rinse and gargle mouth with water after each use. omeprazole (PRILOSEC) 40 mg capsule Take 1 capsule by mouth once daily. Insulin Syringe-Needle U-100 (INSULIN SYRINGE) 1 mL 29 gauge x 1/2 1 Each once daily. olmesartan (BENICAR) 20 mg tablet Take 1 tablet by mouth once daily. traZODone (DESYREL) 150 mg tablet Take 1 tablet by mouth daily at bedtime. albuterol HFA (PROVENTIL HFA, VENTOLIN HFA) 90 mcg/actuation inhaler Inhale 2 Puffs as instructed four times a day as needed for wheezing/shortness of breath. FOR WHEEZING AND SHORTNESS OF BREATH. MULTIVITAMIN ORAL Take by mouth once daily. REVIEW OF SYSTEMS: The following systems were reviewed with the patient and are unremarkable other than as described below. SYSTEMIC: No fever, chills, or change in weight or appetite HEENT: No recent change in vision or hearing. Respiratory: No hemoptysis, cough CARDIOVASCULAR: See HPI. GI: No recent nausea, vomiting or diarrhea. : No recent hematuria or dysuria. SKIN: No recent itching or eruption. PSYCH: No recent active anxiety or depression. HEMATOLOGY/ONCOLOGY: No recent diagnosis of bleeding or cancer. ENDOCRINE: No recent polyuria or heat intolerance. NEURO: No recent TIA, stroke or seizures. RHEUMATOLOGY: No recent active connective tissue disease. PHYSICAL EXAM: BP 112/64 (BP Position: Sitting) Pulse 68 Ht 154.9 cm (5' 1) Wt 103.2 kg (227 lb 8.2 oz) SpO2 96% BMI 42.99 kg/m? Last 2 Encounter Wt Readings: Date: Wt: 04/01/2025 103.2 kg (227 lb 8.2 oz) 02/11/2025 103.4 kg (228 lb) Awake, alert, oriented times 3. Patient is not in acute respiratory distress. SKIN: No erythematous rash is noted Head : Normocephalic. Face is symmetrical ENT: Pharyngeal structures are not crowded and uvula is well visualized. Mallampati 3 NECK: Supple. No JVD. No carotid bruit. No thyromegaly. LUNGS: Clear to auscultation bilaterally. CARDIAC: Regular Heart rhythm with S1 and S2, no systolic murmur. ABDOMEN: Soft, nontender, bowel sounds present. EXTREMITIES: No cyanosis. No clubbing. Mild edema is noted on the right leg and ankles. PULSES: DP and PT Peripheral pulses are palpable. 2+ b/l NEURO: Non-focal. Moves all extremities. MSK: No significant joint deformities noted Last Labs: Sodium Date Value Ref Range Status 02/11/2025 139 136 - 144 mmol/L Final Potassium Date Value Ref Range Status 03/14/2025 4.5 3.7 - 5.1 mmol/L Final Chloride Date Value Ref Range Status 02/11/2025 103 98 - 107 mmol/L Final CO2 Date Value Ref Range Status 02/11/2025 24 22 - 30 mmol/L Final Glucose Date Value Ref Range Status 02/11/2025 169 (H) 74 - 99 mg/dL Final Comment: The [place] [employer] (ADA) provides guidance for cutoff values for fasting glucose and random glucose. The ADA defines fasting as no caloric intake for at least 8 hours. Fasting plasma glucose results between 100 to 125 mg/dL indicate increased risk for diabetes (prediabetes). Fasting plasma glucose results greater than or equal to 126 mg/dL meet the criteria for diagnosis of diabetes. In the absence of unequivocal hyperglycemia, results should be confirmed by repeat testing. In a patient with classic symptoms of hyperglycemia or hyperglycemic crisis, random plasma glucose results greater than or equal to 200 mg/dL meet the criteria for diagnosis of diabetes. Reference: Standards of Medical Care in Diabetes 2016, [place] [employer]. Diabetes Care. 2016.39(Suppl 1). BUN Date Value Ref Range Status 02/11/2025 28 (H) 7 - 21 mg/dL Final Creatinine Date Value Ref Range Status 02/11/2025 1.06 (H) 0.58 - 0.96 mg/dL Final Calcium, Total Date Value Ref Range Status 02/11/2025 9.6 8.5 - 10.2 mg/dL Final Albumin Date Value Ref Range Status 02/11/2025 4.1 3.9 - 4.9 g/dL Final Protein, Total Date Value Ref Range Status 02/11/2025 7.0 6.3 - 8.0 g/dL Final AST Date Value Ref Range Status 02/11/2025 22 13 - 35 U/L Final ALT Date Value Ref Range Status 02/11/2025 17 7 - 38 U/L Final Alkaline Phosphatase Date Value Ref Range Status 02/11/2025 60 34 - 123 U/L Final Bilirubin, Total Date Value Ref Range Status 02/11/2025 0.2 0.2 - 1.3 mg/dL Final Triglyceride Date Value Ref Range Status 02/11/2025 117 <150 mg/dL Final Comment: <150 mg/dL, Normal 150-199 mg/dL, Borderline high 200-499 mg/dL, High >499 mg/dL, Very high Cholesterol, Total Date Value Ref Range Status 02/11/2025 193 <200 mg/dL Final Comment: <200 mg/dL, Desirable 200-239 mg/dL, Borderline high >239 mg/dL, High HDL Cholesterol Date Value Ref Range Status 02/11/2025 53 >39 mg/dL Final Comment: 40-59 mg/dL, Acceptable >59 mg/dL, High: Negative risk factor for coronary heart disease <40 mg/dL, Low: Positive risk factor for coronary heart disease LDL Cholesterol, Calculated Date Value Ref Range Status 02/11/2025 119 (H) <100 mg/dL Final Comment: <100 mg/dL, Optimal 100-129 mg/dL, Near optimal/above optimal 130-159 mg/dL, Borderline high 160-189 mg/dL, High >189 mg/dL, Very high Secondary prevention optimal LDL Cholesterol levels are recommended to be <70 mg/dL LDL cholesterol is calculated using the Hsu-NIH equation. Cardiovascular Testing: I have personally reviewed the Electrocardiogram, Chest X-ray, Laboratory Testing, Echocardiogram. Last ECHO Result Conclusion ECHO Collected: 07/21/2023 1:11 PM (Final result) Impression: CONCLUSIONS: - Technically difficult exam due to body habitus. - Exam indication: Shortness of Breath - The left ventricle is normal in size. Left ventricular systolic function is normal. EF = 62 ? 5% (2D biplane) Grade I left ventricular diastolic dysfunction. - The right ventricle is normal in size. Right ventricular systolic function is normal. - There are no significant valvular abnormalities. - Exam was compared with the prior echocardiographic exam performed on 07/20/2020, no sigificant change. * * * Final * * * Last EKG Result Conclusion ECG COMPLETE Collected: 04/01/2025 1:55 PM (Preliminary result) Impression: NORMAL SINUS RHYTHM NORMAL ECG IMPRESSION / RECOMMENDATIONS / PLAN: Encounter Diagnosis ICD-10-CM 1. Coronary artery disease of [place] heart with stable angina pectoris, unspecified vessel or lesion type I25.118 2. Pulmonary hypertension (HCC) I27.20 3. Dyslipidemia E78.5 1. Pulmonary hypertension (HCC) (I27.20) Patient reports persistent dyspnea and palpitations. Nocturnal snoring and sleep apnea may contribute to symptoms. No evidence of lower extremity edema on exam. - Ordered echocardiogram to evaluate cardiac function and rule out pulmonary hypertension. - Discussed potential benefits of weight loss and management of KAM to alleviate symptoms. 2. Dyslipidemia (E78.5) Other hyperlipidemia (E78.49) Previous lab results from July indicated elevated cholesterol levels. Recent labs show improved cholesterol levels, currently managed with fenofibrate. - Continue fenofibrate therapy. - Emphasized dietary modifications to further improve lipid profile. 3. Coronary artery disease of [place] heart with stable angina pectoris, unspecified vessel or lesion type (I25.118) Patient experiences brief episodes of precordial pain lasting 2-4 seconds, described as stabbing. Pain is not associated with exertion or specific movements. Previous cardiac catheterization 5 years ago was normal. Recent ECG is normal. - Ordered echocardiogram to assess cardiac function. - Discussed that current chest pain is atypical and unlikely cardiac in origin; no stress test indicated at this time. - Advised to monitor for any changes in pain quality, such as heaviness or pressure, which would warrant further evaluation. 4. Type 2 diabetes mellitus without ophthalmic manifestations ([facility]) (E11.9) Diabetes managed with insulin, metformin, and Januvia. Recent lab results show normal potassium and liver function. - Continue current diabetes medications. - Encouraged dietary modifications to aid in weight loss and improve glycemic control. 5. KAM (obstructive sleep apnea) (G47.33) Patient reports severe snoring and poor sleep quality. Previous CPAP therapy was unsuccessful. - Recommended consultation with a dentist for a mandibular advancement device to improve airway patency during sleep. 6. Primary hypertension (I10) Blood pressure well-controlled on current regimen of diltiazem and olmesartan. Recent reading was 112/64 mmHg. - Continue current antihypertensive medications. 7. Hypothyroidism, unspecified type (E03.9) 8. Class 3 severe obesity with body mass index (BMI) of 40.0 to 44.9 in adult ([facility]) (E66.813) Patient reports difficulty with weight loss despite previous attempts. - Discussed dietary modifications, including reducing intake of carbohydrates and fatty foods, and increasing consumption of vegetables, salads, fish, and chicken. - Offered referral to a health and head strength and conditioning coach for additional support in weight management. 9. Precordial pain (R07.2) with pains all over her body could be due to fibromyalgia. Episodes of brief, stabbing precordial pain lasting 2-4 seconds. Pain is not associated with exertion or specific movements. Recent ECG is normal. - I ordered echocardiogram to assess cardiac function. - Discussed that current chest pain is atypical and unlikely cardiac in origin; no stress test indicated at this time. I offered to do a pharmacological nuclear SPECT scan on her but she did not want to do this at present. - Advised to monitor for any changes in pain quality, such as heaviness or pressure, which would warrant further evaluation. Dyslipidemia Continue with medication management as directed. DM2 Continue with medication management as directed. 3. KAM Patient does not tolerate CPAP machine. Recommend dentist or teradata solution architect consult for mouthgard to improve sleep hygiene. 4. Obesity Patient is counseled at length regarding importance of aggressive risk factor modification including compliance with medication, increased activity/exercise, low cholesterol low fat diet, low salt diet. Yuan Recommended diet: Low carbohydrate and Low saturated fat, low simple sugar, high fiber diet. I gave her a brochure of Mediterranean diet to help with weight loss. Exercise minimally 150 minutes per week, increase as tolerated. Adequate hydration. Follow up PRN The patient note was entered by Mey Mackenzie OMS-3, under revision and guidance of Alvin Giraldo MD on April 01, 2025 at 1:53 PM. Alvin Giraldo MD, FACC. [employer], Dept of Cardiology, [facility]. Staff Pricing Director, Heart, Vascular and Thoracic [place], [facility]. ECG01 Observed: 04/01/2025 1:55 PM Status: F Source: [facility] Ventricular Rate : 68 BPM Atrial Rate : 68 BPM P-R Interval : 174 ms QRS Duration : 94 ms Q-T Interval : 388 ms QTC Calculation(Bazett) : 412 ms Calculated P [place] : 35 degrees Calculated R [place] : 46 degrees Calculated T [place] : 38 degrees NORMAL SINUS RHYTHM NORMAL ECG Confirmed by MD AINSLEY, ALVIN ([id number]), online editor DIXIE GENTILE ([id number]) on 04/04/2025 5:04:34 PM NAME : CHLOE GUILLORY PID : [id number] : 1950 Gender : Female Race : ORD : Procedure Date : Apr 01 2025 13:55:32 Edit Date : Apr 04 2025 17:04:36 Diagnosis: NORMAL SINUS RHYTHM NORMAL ECG Confirmed by MD AINSLEY, ALVIN ([id number]), online editor DIXIE GENTILE ([id number]) on 04/04/2025 5:04:34 PM Test Reason : [facility] : [facility] Overread By : MD GIRALDO QARAB Edited By : DIXIE GENTILE Referred By : MICHELLE CEBALLOS Acquired by : FREEMAN RENDON POTASSIUM Collected: 03/14/2025 2:15 PM Status: F Source: [facility] Order Comment: Specimen Type : BLOOD SPECIMEN Ordering Facility: [facility] Address: [address] [place] [address] TYPE CODE TESTS RESULT OUT OF RANGE REFERENCE UNITS LAB 2823-3(LOINC) Potassium SerPl-sCnc 4.5 3.7-5.1 mmol/L Performed By: #### 44086-5, K1 #### [facility] CLIA [id number] [address] [place] [address] [place] MAGNESIUM SERPL-MCNC Collected: 03/14/2025 2:15 PM S tatus: F Source: [facility] Order Comment: Specimen Type : BLOOD SPECIMEN Ordering Facility: [facility] Address: [address] [place] [address] TYPE CODE TESTS RESULT OUT OF RANGE REFERENCE UNITS LAB 72196-0(LOINC) Magnesium SerPl-mCnc 1.7 1.7-2.3 mg/dL Performed By: #### 40165-6, K1 #### [facility] CLIA [id number] [address] [place] [address] [place] CNPN Observed: 02/14/2025 12:00 AM Status: COMPLETED Source: [facility] Telephone (FAMPWS) CHLOE GUILLORY ([id number]) 1950 F Date Time Provider Department 02/14/25 CHICHO BRIANWS During your visit today, we recorded the following information about you: Chicho Brian MD 02/14/2025 12:29 PM Signed Labs are improving. Sugars and lipids are improving. Her mag is low. It looks like Alaina just increased her mag to bid? If so, lets recheck labs in two weeks. Potassium is slightly up. Make sure not using any potassium supplements. Recheck in two weeks. Sanjuana Echeverria, JERI 02/14/2025 7:02 PM Signed Called and left a voicemail for the Patient to call back and ask for a nurse to receive the providers message. JERI Gavin M Robin, RN 02/16/2025 9:23 AM Signed Pt returned call and given provider's message below with verbalized understanding. Pt agreeable. Allergies As of Date: 02/14/2025 Noted Allergy Reaction ATORVASTATIN 11/08/2024 17 - Myalgia Comments: Craps in all muscles DUST 09/26/2015 3 - Cough JARDIANCE (EMPAGLIFLOZIN) 01/27/2018 14 - Other: See Comments Comments: Became suicidal MOLD 03/19/2016 12 - Shortness of Breath [id number] REDUCTASE INHIBIT*04/04/2015 17 - Myalgia VICTOZA (LIRAGLUTIDE) 01/27/2018 14 - Other: See Comments Comments: Thinks she had thyroid issues from it. Date Reviewed: 02/11/2025 Reviewed by: Bel Wade MA - Fully Assessed Reason for Visit: Results [95] Primary Visit Diagnosis:Hypomagnesemia [E83.42] Other Visit Diagnosis:Hyperkalemia [E87.5] Order(s):POTASSIUM [SQK1] Order #: [id number] FUTURE MAGNESIUM [SQMG1] Order #: [id number] FUTURE Prescriptions as of 02/16/2025 - magnesium oxide (MAG-OX) 400 mg (241.3 mg magnesium) tablet Take 1 tablet by mouth two times a day. - insulin glargine (LANTUS U-100 INSULIN) 100 unit/mL injection Inject 40 Units subcutaneously daily at bedtime. - metFORMIN (GLUCOPHAGE) 500 mg tablet Take 2 tablets by mouth two times a day with meals. - SITagliptin phosphate (JANUVIA) 100 mg tablet Take 1 tablet by mouth once daily. - Cyanocobalamin 1,000 mcg TbER Take 1 tablet by mouth once daily. - levothyroxine (LEVOXYL) 50 mcg tablet Take 1 tablet by mouth once daily. Take on empty stomach. For Thyroid - BIOTIN ORAL Take by mouth. - dilTIAZem HCl 360 mg 24 hr capsule Take 1 capsule by mouth once daily. - fenofibrate nanocrystallized (TRICOR) 145 mg tablet Take 1 tablet by mouth once daily. - fluticasone-salmeterol (WIXELA INHUB) 250-50 mcg/dose inhaler Inhale 1 Puff as instructed two times a day. Rinse and gargle mouth with water after each use. - omeprazole (PRILOSEC) 40 mg capsule Take 1 capsule by mouth once daily. - Insulin Syringe-Needle U-100 (INSULIN SYRINGE) 1 mL 29 gauge x 1/2 1 Each once daily. - olmesartan (BENICAR) 20 mg tablet Take 1 tablet by mouth once daily. - traZODone (DESYREL) 150 mg tablet Take 1 tablet by mouth daily at bedtime. - albuterol HFA (PROVENTIL HFA, VENTOLIN HFA) 90 mcg/actuation inhaler Inhale 2 Puffs as instructed four times a day as needed for wheezing/shortness of breath. FOR WHEEZING AND SHORTNESS OF BREATH. - MULTIVITAMIN ORAL Take by mouth once daily. Meds Comments as of 06/07/2015: Patient has broken out recently feel like it is from her Trazadone Problem List As Of Date 02/14/2025 Noted Resolved Type 2 diabetes mellitus with stage 3a chronic *04/04/2015 Hypertension [I10] 04/04/2015 Hypothyroidism [E03.9] 04/04/2015 Morbid obesity (HCC) [E66.01] 04/04/2015 03/23/2019 Moderate persistent asthma without complication*07/11/2015 KAM (obstructive sleep apnea) CPAP intolerant [*09/26/2015 Insomnia [G47.00] 03/19/2016 RLS (restless legs syndrome) [G25.81] 02/15/2019 Kidney disease [N28.9] 03/23/2019 07/06/2019 Class 3 severe obesity with body mass index (BM*03/23/2019 Edema [R60.9] 03/23/2019 Other hyperlipidemia [E78.49] 03/23/2019 Stable angina pectoris (HCC) [I20.89] 06/26/2020 SOB (shortness of breath) [R06.02] 07/14/2020 05/01/2022 Multiple gallstones [K80.20] 03/20/2022 04/01/2023 Chronic pain of both shoulders [M25.511, G89.29*07/29/2022 Encounter Status:Closed by Ann MESSINA on 02/16/25 COMP METAB 2000 PNL SERPL Collected: 12:38 PM Status: F Source: [facility] Order Comment: Specimen Type : BLOOD SPECIMEN Ordering Facility: [facility] Address: [address] [place] [address] TYPE CODE TESTS RESULT OUT OF RANGE REFERENCE UNITS LAB 2885-2(LOINC) Prot SerPl-mCnc 7.0 6.3-8.0 g/dL LAB 1751-7(LOINC) Albumin SerPl-mCnc 4.1 3.9-4.9 g/dL LAB 80040-9(LOINC) Calcium SerPl-mCnc 9.6 8.5-10.2 mg/dL LAB 1975-2(LOINC) Bilirub SerPl-mCnc 0.2 0.2-1.3 mg/dL LAB 6768-6(LOINC) ALP SerPl-cCnc 60 34-123 U/L LAB 1920-8(LOINC) AST SerPl-cCnc 22 13-35 U/L LAB 1742-6(LOINC) ALT SerPl-cCnc 17 7-38 U/L LAB 2345-7(LOINC) Glucose SerPl-mCnc 169 High 74-99 mg/dL Result Comment: The [place] Diabetes Association (ADA) provides guidance for cutoff values for fasting glucose and random glucose. The ADA defines fasting as no caloric intake for at least 8 hours. Fasting plasma glucose results between 100 to 125 mg/dL indicate increased risk for diabetes (prediabetes). Fasting plasma glucose results greater than or equal to 126 mg/dL meet the criteria for diagnosis of diabetes. In the absence of unequivocal hyperglycemia, results should be confirmed by repeat testing. In a patient with classic symptoms of hyperglycemia or hyperglycemic crisis, random plasma glucose results greater than or equal to 200 mg/dL meet the criteria for diagnosis of diabetes. Reference: Standards of Medical Care in Diabetes 2016, [place] Diabetes Association. Diabetes Care. 2016.39(Suppl 1). LAB 3094-0(LOINC) BUN SerPl-mCnc 28 High 7-21 mg/ dL LAB 2160-0(LOINC) Creat SerPl-mCnc 1.06 High 0.58-0.96 mg/dL LAB 2951-2(LOINC) Sodium SerPl-sCnc 139 136-144 mmol/L LAB 2823-3(LOINC) Potassium SerPl-sCnc 5.2 High 3.7-5.1 mmol/L LAB 2075-0(LOINC) Chloride SerPl-sCnc 103 98-107 mmol/L LAB 2028-9(LOINC) CO2 SerPl-sCnc 24 22-30 mmo l/L LAB 53274-2(LOINC) Anion Gap SerPl-sCnc 12 8-15 mmol/L LAB 51354-4(LOINC) Creatinine + eGFR Pnl SerPlBld 56 Low >=60 mL/min/1 .73m??? Result Comment: Estimated Gl omerular Filtration Rate (eGFR) is calculated using the 2020 CKD-EPI creatinine equation. This equation utilizes serum creatinine, sex, and age as parameters. The creatinine assay has traceable calibration to isotope dilution-mass spectrometry. Refer to KDIGO guidelines for clinical interpretation. In patients with unstable renal function, e.g. those with acute kidney injury, the eGFR may not accurately reflect actual GFR. Performed By: #### 01735-0, 56863-2, 73946-7, 2132-9 #### [facility] CLIA [id number] [address] [place] [address] [place] LIPID 1996 PNL SERPL Collected: 025 12:38 PM Status: F Source: [facility] Order Comment: Specimen Type : BLOOD SPECIMEN Ordering Facility: [facility] Address: [address] [place] [address] TYPE CODE TESTS RESULT OUT OF RANGE REFERENCE UNITS LAB 2093-3(LOINC) Cholest SerPl-mCnc 193 <200 mg/dL Result Comment: <200 mg/dL, Desirable 200-239 mg/dL, Borderline high >239 mg/dL, High LAB 2571-8(LOINC) Trigl SerPl-mCnc 117 <150 mg/dL Result Comment: <150 mg/dL, Normal 150-199 mg/dL, Borderline high 200-499 mg/dL, High >499 mg/dL, Very high LAB 2085-9(LOINC) HDLc SerPl-mCnc 53 >39 mg/dL Result Comment: 40-59 mg/dL, Acceptable >59 mg/dL, High: Negative risk factor for coronary heart disease <40 mg/dL, Low: Positive risk factor for coronary heart disease LAB 2089-1([facility]) LDLc SerPl-mCnc 119 High <100 mg/dL Result Comment: <100 mg/dL, Optimal 100-129 mg/dL, Near optimal/above optimal 130-159 mg/dL, Borderline high 160-189 mg/dL, High >189 mg/dL, Very high Secondary prevention optimal LDL Cholesterol levels are recommended to be <70 mg/dL LDL cholesterol is calculated using the Hsu-NIH equation. LAB 51132-0(LOINC) NonHDLc SerPl-mCnc 140 High <130 mg/dL Result Comment: <130 mg/dL, Optimal 130-159 mg/dL, Near optimal/above optimal 160-189 mg/dL, Borderline high 190-219 mg/dL, High >219 mg/dL, Very high Secondary prevention optimal non HDL Cholesterol levels are recommended to be <100 mg/dL LAB 02702-5(LOINC) VLDLc SerPl Calc-mCnc 20 <30 mg/dL LAB 9830-1(LOINC) Cholest/HDLc SerPl 3.64 <5.10 LAB 50888-3(LOINC) LDLc/HDLc SerPl 2.25 <2.54 Result Comment: Reference: 1. National Cholesterol Education Program ATP III Guideline At-A-Glance Quick Desk Reference: National Heart, Lung, and Blood [place]. National Institutes of Health. 2001: NIH Publication No. 01-3305. 2. An International Atherosclerosis Society position paper: global recommendations for the management of dyslipidemia: executive summary, Atherosclerosis. 2014: 232(2):410-413. LAB FT FASTING TIME 12 hrs Performed By: #### 71004-4, 77356-1, 24851-0, 2132-05 #### [facility] CLIA [id number] [address] [place], [place] [id number] [place] MAGNESIUM SERPL-MCNC Collected: 12:38 PM Status: F Source: [facility] Comment: Specimen Type : BLOOD SPECIMEN Ordering Facility: [facility] Address: [address] [place] [address] TYPE CODE TESTS RESULT OUT OF RANGE REFERENCE UNITS LAB 34153-3(LOINC) Magnesium SerPl-mCnc 1.4 Low 1.7-2.3 mg/dL Performed By: #### 64890-0, 41232-6, , 2132-05 #### [facility] CLIA [id number] [address] [place] [address] [place] VIT B12 SERPL-MCNC Collected: 12:38 PM Status: F Source: [facility] Comment: Specimen Type : BLOOD SPECIMEN Ordering Facility: [facility] Address: [address] [place] [address] TYPE CODE TESTS RESULT OUT OF RANGE REFERENCE UNITS LAB 2131-9(LOINC) Vit B12 SerPl-mCnc 135 374-6141 pg/mL Performed By: #### 46651-3, 00453-1, 48102-1, 2132-05 #### [facility] CLIA [id number] [address] [place], [place] [id number] [place] DEPRECATED HGB A1C BLD Collected: 02/11 12:38 PM Status: F Source: [facility] Comment: Specimen Type : BLOOD SPECIMEN Ordering Facility: [facility] Address: [address] [place], [place] [id number] TYPE CODE TESTS RESULT OUT OF RANGE REFERENCE UNITS LAB 4548-4(LOINC) HbA1c MFr Bld 7.3 High 4.3-5.6 % Result Comment: [place] Na[place] betes Association guidelines indicate that patients with HgbA1c in the range 5.7-6.4% are at increased risk for development of diabetes, and intervention by lifestyle modification may be beneficial. HgbA1c greater or equal to 6.5% is considered diagnostic of diabetes. LAB 44819-2(LOINC) Est. average glucose Bld gHb Est-mCnc 163 mg/dL Result Comment: eAG: (Estima vance average glucose) is a calculated value from HgbA1c and is sales representative graphic art of the average blood glucose level in the last 2-3 month period. Performed By: #### 58800-0 # ### [facility] CLIA [id number] [address] [place] [address] [place] PROGRESS Observed: 02/11/2025 11:58 AM Status: COMPLETED Source: [facility] HNO ID: [id number] Author: MICHELLE CEBALLOS APRN.SKY DIVER Service: ? Author Type: Nurse Practitioner Type: Progress Notes Filed: 02/11/2025 12:20 Note Text: This is a 74 year old female who presents today with: Patient presents with: Diabetes: 3 month exam HISTORY OF PRESENT ILLNESS: Chloe Guillory is a 74 year old female. Patient presents with: Diabetes: 3 month exam Chloe Guillory is a 74-year-old female with a history of diabetes mellitus, presenting for evaluation of hyperglycemia, headaches, and dizziness. Hyperglycemia: - Chloe reports elevated blood glucose levels, with fasting readings around 200 mg/dL. - Unable to afford [employer] due to cost. - Currently taking Lantus 32-35 units daily and metformin. - Metformin causes diarrhea, which she prefers due to chronic constipation. - Denies excessive thirst. - Recent weight gain, but notes a slight decrease at this visit. - Orthopedic provider deferred cortisone injections due to hyperglycemia. Headaches: - Daily headaches since blood glucose levels increased. - Denies photophobia or phonophobia. Dizziness: - Chronic dizziness x years, worsening recently. - Severe episodes when bending down, e.g., looking into the refrigerator. Shoulder Pain: - Chronic pain in both shoulders, affecting sleep. - Orthopedic provider considered cortisone injections but deferred due to hyperglycemia. Chronic Diarrhea: - Chronic diarrhea secondary to metformin use. - Prefers diarrhea to prevent constipation. Shortness of Breath: - Chronic dyspnea. Chest Pain: - Chronic chest pain. Edema: - Mild edema, worse in summer. B12 Deficiency: - Taking B12 1000 mcg daily. - Recent labs showed low B12 levels. Magnesium Deficiency: - Taking magnesium 2500 mg daily. - Recent labs showed low magnesium levels. - Unable to obtain magnesium oxide from pharmacy. PAST MEDICAL HISTORY: PAST MEDICAL HISTORY Diagnosis Date Hypertension Hypothyroidism Insomnia 03/19/2016 Moderate persistent asthma without complication ([facility]) 07/11/2015 07/07/15 Methacholine Inhalation Challenge: 35% drop FEV1 at 2.5 mg/mL. Morbid obesity ([facility]) 04/04/2015 Patient has morbid obesity. Multiple gallstones 03/20/2022 Resolved with lap choly 05/07/2022 KAM (obstructive sleep apnea) 09/26/2015 DME: [facility] Other hyperlipidemia 03/23/2019 RLS (restless legs syndrome) 02/15/2019 Stable angina pectoris 06/26/2020 Type 2 diabetes mellitus with stage 3 chronic kidney disease, with long-term current use of insulin ([facility]) 04/04/2015 Dx: age 51. On metformin and victoza which she does not think works well for her lately She was started on jardiance which made her have suicidal ideation So she stopped the medication. PAST SURGICAL HISTORY Procedure Laterality Date APPENDECTOMY 1957 LAPAROSCOPY DIAGNOSTIC 2000 LEFT HEART CATH,PERCUTANEOUS 07/14/2020 wnl REMOVAL GALLBLADDER 05/07/2022 TONSILLECTOMY AND ADENOIDECTOMY HX 1957 TOTAL ABDOMINAL HYSTERECT W/WO RMVL TUBE OVARY 2000 ALLERGIES Atorvastatin, Dust, Jardiance [Empagliflozin], Mold, Ufacyph-Skm-Hcv Reductase Inhibitors, and Victoza [Liraglutide] MEDICATIONS Current Outpatient Medications Medication Sig Cyanocobalamin 1,000 mcg TbER Take 1 tablet by mouth once daily. levothyroxine (LEVOXYL) 50 mcg tablet Take 1 tablet by mouth once daily. Take on empty stomach. For Thyroid magnesium oxide (MAG-OX) 400 mg (241.3 mg magnesium) tablet Take 1 tablet by mouth once daily. BIOTIN ORAL Take by mouth. metFORMIN (GLUCOPHAGE) 500 mg tablet Take 2 tablets by mouth two times a day with meals. dilTIAZem HCl 360 mg 24 hr capsule Take 1 capsule by mouth once daily. fenofibrate nanocrystallized (TRICOR) 145 mg tablet Take 1 tablet by mouth once daily. fluticasone-salmeterol (WIXELA INHUB) 250-50 mcg/dose inhaler Inhale 1 Puff as instructed two times a day. Rinse and gargle mouth with water after each use. omeprazole (PRILOSEC) 40 mg capsule Take 1 capsule by mouth once daily. insulin glargine (LANTUS U-100 INSULIN) 100 unit/mL injection Inject 30 Units subcutaneously daily at bedtime. Insulin Syringe-Needle U-100 (INSULIN SYRINGE) 1 mL 29 gauge x 1/2 1 Each once daily. olmesartan (BENICAR) 20 mg tablet Take 1 tablet by mouth once daily. traZODone (DESYREL) 150 mg tablet Take 1 tablet by mouth daily at bedtime. albuterol HFA (PROVENTIL HFA, VENTOLIN HFA) 90 mcg/actuation inhaler Inhale 2 Puffs as instructed four times a day as needed for wheezing/shortness of breath. FOR WHEEZING AND SHORTNESS OF BREATH. MULTIVITAMIN ORAL Take by mouth once daily. tirzepatide (MOUNJARO) 2.5 mg/0.5 mL pen injector Inject 2.5 mg subcutaneously one time a week. No current facility-administered medications for this visit. FAMILY HISTORY Adopted: Yes Family history unknown: Yes Social History Tobacco Use Smoking status: Never Smokeless tobacco: Never Tobacco comments: NO smoking in childhood home. Spouse smokes pipe, not around patient. Vaping Use Vaping status: Never Used Substance Use Topics Alcohol use: No Drug use: No REVIEW OF SYSTEMS Constitutional: (+) weight gain Head: (+) headaches Eyes: (-) photophobia Neck: (-) neck swelling Cardiovascular: (+) chest pain, (+) leg swelling Respiratory: (+) shortness of breath, (-) cough, (-) wheezing Gastrointestinal: (+) diarrhea Genitourinary: (-) dysuria, (-) hematuria Musculoskeletal: (+) shoulder pain Skin: (-) rash Neurological: (+) dizziness, (-) syncope, (-) seizures, (-) tremors Psychiatric: (+) insomnia Endocrine: (-) polydipsia EXAM: BP 110/68 Pulse 65 Wt 103.4 kg (228 lb) SpO2 95% BMI 43.08 kg/m? PHYSICAL EXAM: GENERAL: NAD, alert and oriented. SKIN: Unremarkable, no rash or skin lesions. HEAD: Normocephalic. EYES: PERRLA, EOMI, conjunctiva clear. EARS: External ears normal, canals clear, TM's normal. NOSE/SINUSES: Nares normal. Septum midline. Mild erythema noted, no significant swelling. OROPHARYNX: Lips, mucosa, and tongue normal. No oral lesions noted. LUNGS: Clear to auscultation bilaterally, no wheezes/rhonchi/rales. HEART: Regular rate and rhythm, no murmurs. No ectopy. EXTREMITIES: Normal, no deformities, both shoulders ache, no edema. NEURO: Awake, alert and oriented x3, cranial nerves II-XII grossly intact, normal gait, no involuntary motions. LABS: Labs: check labs today (No date) Thyroid function test: Normal CBC: Slightly low counts B12: Low Kidney function: Improved Fasting blood sugar: ~200 mg/dL Tests: (No date) Cologuard: Negative ASSESSMENT/PLAN: 1. Hypomagnesemia (E83.42) - Magnesium levels remain low despite supplementation. - Increased magnesium oxide to twice daily. 2. Type 2 diabetes mellitus with stage 3a chronic kidney disease, with long-term current use of insulin (HCC) (E11.22) 3. Stage 3a chronic kidney disease (HCC) (N18.31) - Blood glucose levels poorly controlled, with fasting blood sugars around 200 mg/dL. - Increased Lantus dosage to 40 units daily. - Initiated alogliptin 25 mg daily. - Recent labs show improved kidney function. 4. Hypothyroidism, unspecified type (E03.9) - Thyroid function tests are within normal limits. 5. Vitamin B12 deficiency (E53.8) - Patient is taking 1000 mcg of B12 supplementation daily. 6. Primary hypertension (I10) - Blood pressure readings are well-controlled. Discussed treatment plan and patient voices understanding. Patient's questions answered appropriately. Medications and potential side effects were discussed and patient voices understanding. Return to the office as scheduled or as needed for worsening/no improvement. Michelle Ceballos APRN.SKY DIVER CNOV Observed: 02/11/2025 11:40 AM Status: COMPLETED Source: [facility] CHLOE GUILLORY ([id number]) 1950 F Date Time Provider Department 02/11/25 11:40 AM MICHELLE CEBALLOS During your visit today, we recorded the following information about you: Pulse Blood pressure Weight 65/minute 122/64 103.4 kg Michelle Ceballos, LEON.SKY DIVER 02/11/2025 12:20 PM Signed This is a 74 year old female who presents today with: Patient presents with: Diabetes: 3 month exam HISTORY OF PRESENT ILLNESS: Chloe Guillory is a 74 year old female. Patient presents with: Diabetes: 3 month exam Chloe Guillory is a 74-year-old female with a history of diabetes mellitus, presenting for evaluation of hyperglycemia, headaches, and dizziness. Hyperglycemia: - Chloe reports elevated blood glucose levels, with fasting readings around 200 mg/dL. - Unable to afford Mounjaro due to cost. - Currently taking Lantus 32-35 units daily and metformin. - Metformin causes diarrhea, which she prefers due to chronic constipation. - Denies excessive thirst. - Recent weight gain, but notes a slight decrease at this visit. - Orthopedic provider deferred cortisone injections due to hyperglycemia. Headaches: - Daily headaches since blood glucose levels increased. - Denies photophobia or phonophobia. Dizziness: - Chronic dizziness x years, worsening recently. - Severe episodes when bending down, e.g., looking into the refrigerator. Shoulder Pain: - Chronic pain in both shoulders, affecting sleep. - Orthopedic provider considered cortisone injections but deferred due to hyperglycemia. Chronic Diarrhea: - Chronic diarrhea secondary to metformin use. - Prefers diarrhea to prevent constipation. Shortness of Breath: - Chronic dyspnea. Chest Pain: - Chronic chest pain. Edema: - Mild edema, worse in summer. B12 Deficiency: - Taking B12 1000 mcg daily. - Recent labs showed low B12 levels. Magnesium Deficiency: - Taking magnesium 2500 mg daily. - Recent labs showed low magnesium levels. - Unable to obtain magnesium oxide from pharmacy. PAST MEDICAL HISTORY: PAST MEDICAL HISTORY Diagnosis Date Hypertension Hypothyroidism Insomnia 03/19/2016 Moderate persistent asthma without complication (HCC) 07/11/2015 07/07/15 Methacholine Inhalation Challenge: 35% drop FEV1 at 2.5 mg/mL. Morbid obesity (HCC) 04/04/2015 Patient has morbid obesity. Multiple gallstones 03/20/2022 Resolved with lap choly 05/07/2022 KAM (obstructive sleep apnea) 09/26/2015 DME: [facility] Other hyperlipidemia 03/23/2019 RLS (restless legs syndrome) 02/15/2019 Stable angina pectoris 06/26/2020 Type 2 diabetes mellitus with stage 3 chronic kidney disease, with long-term current use of insulin ([facility]) 04/04/2015 Dx: age 51. On metformin and victoza which she does not think works well for her lately She was started on jardiance which made her have suicidal ideation So she stopped the medication. PAST SURGICAL HISTORY Procedure Laterality Date APPENDECTOMY 1957 LAPAROSCOPY DIAGNOSTIC 2000 LEFT HEART CATH,PERCUTANEOUS 07/14/2020 wnl REMOVAL GALLBLADDER 05/07/2022 TONSILLECTOMY AND ADENOIDECTOMY HX 1957 TOTAL ABDOMINAL HYSTERECT W/WO RMVL TUBE OVARY 2000 ALLERGIES Atorvastatin, Dust, Jardiance [Empagliflozin], Mold, Sebcjgd-Plt-Uzz Reductase Inhibitors, and Victoza [Liraglutide] MEDICATIONS Current Outpatient Medications Medication Sig Cyanocobalamin 1,000 mcg TbER Take 1 tablet by mouth once daily. levothyroxine (LEVOXYL) 50 mcg tablet Take 1 tablet by mouth once daily. Take on empty stomach. For Thyroid magnesium oxide (MAG-OX) 400 mg (241.3 mg magnesium) tablet Take 1 tablet by mouth once daily. BIOTIN ORAL Take by mouth. metFORMIN (GLUCOPHAGE) 500 mg tablet Take 2 tablets by mouth two times a day with meals. dilTIAZem HCl 360 mg 24 hr capsule Take 1 capsule by mouth once daily. fenofibrate nanocrystallized (TRICOR) 145 mg tablet Take 1 tablet by mouth once daily. fluticasone-salmeterol (WIXELA INHUB) 250-50 mcg/dose inhaler Inhale 1 Puff as instructed two times a day. Rinse and gargle mouth with water after each use. omeprazole (PRILOSEC) 40 mg capsule Take 1 capsule by mouth once daily. insulin glargine (LANTUS U-100 INSULIN) 100 unit/mL injection Inject 30 Units subcutaneously daily at bedtime. Insulin Syringe-Needle U-100 (INSULIN SYRINGE) 1 mL 29 gauge x 1/2 1 Each once daily. olmesartan (BENICAR) 20 mg tablet Take 1 tablet by mouth once daily. traZODone (DESYREL) 150 mg tablet Take 1 tablet by mouth daily at bedtime. albuterol HFA (PROVENTIL HFA, VENTOLIN HFA) 90 mcg/actuation inhaler Inhale 2 Puffs as instructed four times a day as needed for wheezing/shortness of breath. FOR WHEEZING AND SHORTNESS OF BREATH. MULTIVITAMIN ORAL Take by mouth once daily. tirzepatide (MOUNJARO) 2.5 mg/0.5 mL pen injector Inject 2.5 mg subcutaneously one time a week. No current facility-administered medications for this visit. FAMILY HISTORY Adopted: Yes Family history unknown: Yes Social History Tobacco Use Smoking status: Never Smokeless tobacco: Never Tobacco comments: NO smoking in childhood home. Spouse smokes pipe, not around patient. Vaping Use Vaping status: Never Used Substance Use Topics Alcohol use: No Drug use: No REVIEW OF SYSTEMS Constitutional: (+) weight gain Head: (+) headaches Eyes: (-) photophobia Neck: (-) neck swelling Cardiovascular: (+) chest pain, (+) leg swelling Respiratory: (+) shortness of breath, (-) cough, (-) wheezing Gastrointestinal: (+) diarrhea Genitourinary: (-) dysuria, (-) hematuria Musculoskeletal: (+) shoulder pain Skin: (-) rash Neurological: (+) dizziness, (-) syncope, (-) seizures, (-) tremors Psychiatric: (+) insomnia Endocrine: (-) polydipsia EXAM: BP 110/68 Pulse 65 Wt 103.4 kg (228 lb) SpO2 95% BMI 43.08 kg/m? PHYSICAL EXAM: GENERAL: NAD, alert and oriented. SKIN: Unremarkable, no rash or skin lesions. HEAD: Normocephalic. EYES: PERRLA, EOMI, conjunctiva clear. EARS: External ears normal, canals clear, TM's normal. NOSE/SINUSES: Nares normal. Septum midline. Mild erythema noted, no significant swelling. OROPHARYNX: Lips, mucosa, and tongue normal. No oral lesions noted. LUNGS: Clear to auscultation bilaterally, no wheezes/rhonchi/rales. HEART: Regular rate and rhythm, no murmurs. No ectopy. EXTREMITIES: Normal, no deformities, both shoulders ache, no edema. NEURO: Awake, alert and oriented x3, cranial nerves II-XII grossly intact, normal gait, no involuntary motions. LABS: Labs: check labs today (No date) Thyroid function test: Normal CBC: Slightly low counts B12: Low Kidney function: Improved Fasting blood sugar: ~200 mg/dL Tests: (No date) Cologuard: Negative ASSESSMENT/PLAN: 1. Hypomagnesemia (E83.42) - Magnesium levels remain low despite supplementation. - Increased magnesium oxide to twice daily. 2. Type 2 diabetes mellitus with stage 3a chronic kidney disease, with long-term current use of insulin (HCC) (E11.22) 3. Stage 3a chronic kidney disease (HCC) (N18.31) - Blood glucose levels poorly controlled, with fasting blood sugars around 200 mg/dL. - Increased Lantus dosage to 40 units daily. - Initiated alogliptin 25 mg daily. - Recent labs show improved kidney function. 4. Hypothyroidism, unspecified type (E03.9) - Thyroid function tests are within normal limits. 5. Vitamin B12 deficiency (E53.8) - Patient is taking 1000 mcg of B12 supplementation daily. 6. Primary hypertension (I10) - Blood pressure readings are well-controlled. Discussed treatment plan and patient voices understanding. Patient's questions answered appropriately. Medications and potential side effects were discussed and patient voices understanding. Return to the office as scheduled or as needed for worsening/no improvement. BETSEY Minaya Jacqueline A, APRN.CNP 02/11/2025 12:18 PM Addendum - Increase your Lantus insulin to 40 units subcutaneously once a day; prescription has been sent to your pharmacy. - Start allogliptin 25 mg by mouth once daily for additional blood sugar control; prescription has been sent to your pharmacy. - Switch to extended-release (ER) metformin to help reduce diarrhea; prescription for metformin ER has been sent to your pharmacy. - Begin magnesium oxide twice daily as prescribed; prescription for magnesium oxide has been sent to your pharmacy. Allergies As of Date: 02/11/2025 Noted Allergy Reaction ATORVASTATIN 11/08/2024 17 - Myalgia Comments: Craps in all muscles DUST 09/26/2015 3 - Cough JARDIANCE (EMPAGLIFLOZIN) 01/27/2018 14 - Other: See Comments Comments: Became suicidal MOLD 03/19/2016 12 - Shortness of Breath [id number] REDUCTASE INHIBIT*04/04/2015 17 - Myalgia VICTOZA (LIRAGLUTIDE) 01/27/2018 14 - Other: See Comments Comments: Thinks she had thyroid issues from it. Date Reviewed: 02/11/2025 Reviewed by: Bel Wade MA - Fully Assessed Reason for Visit: Diabetes [34] Cmt: 3 month exam Primary Visit Diagnosis:Hypothyroidism, unspecified type [E03.9] Other Visit Diagnoses:Hypomagnesemia [E83.42] Type 2 diabetes mellitus with stage 3a chronic kidney disease, with long-term current use of insulin (HCC) [E11.22, N18.31, Z79.4] Vitamin B12 deficiency [E53.8] Stage 3a chronic kidney disease (HCC) [N18.31] Primary hypertension [I10] Other hyperlipidemia [E78.49] Order(s):magnesium oxide (MAG-OX) 400 mg (241.3 mg magnesium) tabletTake 1 tablet by mouth two times a day.Disp: 180 tabletRfl: 3 insulin glargine (LANTUS U-100 INSULIN) 100 unit/mL injectionInject 40 Units subcutaneously daily at bedtime.Disp: 27 mLRfl: 3 metFORMIN (GLUCOPHAGE) 500 mg tabletTake 2 tablets by mouth two times a day with meals.Disp: 120 tabletRfl: 11 alogliptin (NESINA) 25 mg tabTake 1 tablet by mouth once daily.Disp: 90 tabletRfl: 3 LIPID PANEL, FASTING [SQLIPB] Order #: [id number] FUTURE COMPREHENSIVE METABOLIC PANEL [SQCMP] Order #: [id number] FUTURE MAGNESIUM [SQMG1] Order #: [id number] FUTURE VITAMIN B12 [SQB12] Order #: [id number] FUTURE HEMOGLOBIN A1C [BLQWD0P] Order #: [id number] FUTURE Prescriptions as of 02/11/2025 - magnesium oxide (MAG-OX) 400 mg (241.3 mg magnesium) tablet Take 1 tablet by mouth two times a day. - insulin glargine (LANTUS U-100 INSULIN) 100 unit/mL injection Inject 40 Units subcutaneously daily at bedtime. - metFORMIN (GLUCOPHAGE) 500 mg tablet Take 2 tablets by mouth two times a day with meals. - alogliptin (NESINA) 25 mg tab Take 1 tablet by mouth once daily. - Cyanocobalamin 1,000 mcg TbER Take 1 tablet by mouth once daily. - levothyroxine (LEVOXYL) 50 mcg tablet Take 1 tablet by mouth once daily. Take on empty stomach. For Thyroid - BIOTIN ORAL Take by mouth. - dilTIAZem HCl 360 mg 24 hr capsule Take 1 capsule by mouth once daily. - fenofibrate nanocrystallized (TRICOR) 145 mg tablet Take 1 tablet by mouth once daily. - fluticasone-salmeterol (WIXELA INHUB) 250-50 mcg/dose inhaler Inhale 1 Puff as instructed two times a day. Rinse and gargle mouth with water after each use. - omeprazole (PRILOSEC) 40 mg capsule Take 1 capsule by mouth once daily. - Insulin Syringe-Needle U-100 (INSULIN SYRINGE) 1 mL 29 gauge x 1/2 1 Each once daily. - olmesartan (BENICAR) 20 mg tablet Take 1 tablet by mouth once daily. - traZODone (DESYREL) 150 mg tablet Take 1 tablet by mouth daily at bedtime. - albuterol HFA (PROVENTIL HFA, VENTOLIN HFA) 90 mcg/actuation inhaler Inhale 2 Puffs as instructed four times a day as needed for wheezing/shortness of breath. FOR WHEEZING AND SHORTNESS OF BREATH. - MULTIVITAMIN ORAL Take by mouth once daily. Meds Comments as of 06/07/2015: Patient has broken out recently feel like it is from her Trazadone Problem List As Of Date 02/11/2025 Noted Resolved Type 2 diabetes mellitus with stage 3a chronic *04/04/2015 Hypertension [I10] 04/04/2015 Hypothyroidism [E03.9] 04/04/2015 Morbid obesity (HCC) [E66.01] 04/04/2015 03/23/2019 Moderate persistent asthma without complication*07/11/2015 KAM (obstructive sleep apnea) CPAP intolerant [*09/26/2015 Insomnia [G47.00] 03/19/2016 RLS (restless legs syndrome) [G25.81] 02/15/2019 Kidney disease [N28.9] 03/23/2019 07/06/2019 Class 3 severe obesity with body mass index (BM*03/23/2019 Edema [R60.9] 03/23/2019 Other hyperlipidemia [E78.49] 03/23/2019 Stable angina pectoris (HCC) [I20.89] 06/26/2020 SOB (shortness of breath) [R06.02] 07/14/2020 05/01/2022 Multiple gallstones [K80.20] 03/20/2022 04/01/2023 Chronic pain of both shoulders [M25.511, G89.29*07/29/2022 Other instructions from your clinician: - Increase your Lantus insulin to 40 units subcutaneously once a day; prescription has been sent to your pharmacy. - Start allogliptin 25 mg by mouth once daily for additional blood sugar control; prescription has been sent to your pharmacy. - Switch to extended-release (ER) metformin to help reduce diarrhea; prescription for metformin ER has been sent to your pharmacy. - Begin magnesium oxide twice daily as prescribed; prescription for magnesium oxide has been sent to your pharmacy. Prescriptions ordered this encounter Disp Refills Start End MAGNESIUM OXIDE 400 MG (241.3 MG MAG* 180 * 3 02/11/2025 02/11/2026 Route: PO Sig: Take 1 tablet by mouth two times a day. INSULIN GLARGINE (U-100) 100 UNIT/ML* 27 mL 3 02/11/2025 02/11/2026 Cmt: Generic or brand: dispense product preferred by patient/insurance unless KYLEE flag is selected. Route: SQ Sig: Inject 40 Units subcutaneously daily at bedtime. METFORMIN 500 MG TABLET 120 * 11 02/11/2025 02/11/2026 Route: PO Sig: Take 2 tablets by mouth two times a day with meals. ALOGLIPTIN 25 MG TABLET 90 t* 3 02/11/2025 02/11/2026 Route: PO Sig: Take 1 tablet by mouth once daily. Medications Discontinued During This Encounter Prescriptions - tirzepatide (MOUNJARO) 2.5 mg/0.5 mL pen injector (Discontinued) Inject 2.5 mg subcutaneously one time a week. - magnesium oxide (MAG-OX) 400 mg (241.3 mg magnesium) tablet (Discontinued) Take 1 tablet by mouth once daily. - metFORMIN (GLUCOPHAGE) 500 mg tablet (Discontinued) Take 2 tablets by mouth two times a day with meals. - insulin glargine (LANTUS U-100 INSULIN) 100 unit/mL injection (Discontinued) Inject 30 Units subcutaneously daily at bedtime. Level of Service: OFFICE/OUTPATIENT ESTABLISHED LOW [facility] 20 MIN [13678] Additional E/M codes: VISIT CPLX INHERENT EANDM ASSOC WITH MED * LOS History for Encounter Level of Service: OFFICE/OUTPATIENT ESTABLISHED MOD [facility] 30 MIN[86205] Date AND Time: 02-11-2025 12:17 PM Recorded by User: MICHELLE CEBALLOS Encounter Status:Closed by MICHELLE CEBALLOS on 02/11/25 CNPN Observed: 02/11/2025 12:00 AM Status: COMPLETED Source: [facility] CHLOE GUILLORY ([id number]) 1950 F Date Time Provider Department 02/11/25 MICHELLE CEBALLOS [facility] During your visit today, we recorded the following information about you: Danii Amanda LPN 02/11/2025 4:14 PM Signed VELIA Reilly sends fax that alogliptin is not covered by insurance. Asking for change to januvia 100 mg or tradjenta 5 mg? Or would you like prior auth attempted? Michelle Ceballos, HOSE INSPECTOR.SKY DIVER 02/11/2025 4:24 PM Signed Januvia [address] of alogliptin. Allergies As of Date: 02/11/2025 Noted Allergy Reaction ATORVASTATIN 11/08/2024 17 - Myalgia Comments: Craps in all muscles DUST 09/26/2015 3 - Cough JARDIANCE (EMPAGLIFLOZIN) 01/27/2018 14 - Other: See Comments Comments: Became suicidal MOLD 03/19/2016 12 - Shortness of Breath [id number] REDUCTASE INHIBIT*04/04/2015 17 - Myalgia VICTOZA (LIRAGLUTIDE) 01/27/2018 14 - Other: See Comments Comments: Thinks she had thyroid issues from it. Date Reviewed: 02/11/2025 Reviewed by: Bel Wade MA - Fully Assessed Reason for Visit: Insurance Authorization [[id number]] Primary Visit Diagnosis:Controlled type 2 diabetes mellitus without complication, with long-term current use of insulin ([facility]) [E11.9, Z79.4] Order(s):SITagliptin phosphate (JANUVIA) 100 mg tabletTake 1 tablet by mouth once daily.Disp: 30 tabletRfl: 11 Prescriptions as of 02/11/2025 - magnesium oxide (MAG-OX) 400 mg (241.3 mg magnesium) tablet Take 1 tablet by mouth two times a day. - insulin glargine (LANTUS U-100 INSULIN) 100 unit/mL injection Inject 40 Units subcutaneously daily at bedtime. - metFORMIN (GLUCOPHAGE) 500 mg tablet Take 2 tablets by mouth two times a day with meals. - SITagliptin phosphate (JANUVIA) 100 mg tablet Take 1 tablet by mouth once daily. - Cyanocobalamin 1,000 mcg TbER Take 1 tablet by mouth once daily. - levothyroxine (LEVOXYL) 50 mcg tablet Take 1 tablet by mouth once daily. Take on empty stomach. For Thyroid - BIOTIN ORAL Take by mouth. - dilTIAZem HCl 360 mg 24 hr capsule Take 1 capsule by mouth once daily. - fenofibrate nanocrystallized (TRICOR) 145 mg tablet Take 1 tablet by mouth once daily. - fluticasone-salmeterol (WIXELA INHUB) 250-50 mcg/dose inhaler Inhale 1 Puff as instructed two times a day. Rinse and gargle mouth with water after each use. - omeprazole (PRILOSEC) 40 mg capsule Take 1 capsule by mouth once daily. - Insulin Syringe-Needle U-100 (INSULIN SYRINGE) 1 mL 29 gauge x 1/2 1 Each once daily. - olmesartan (BENICAR) 20 mg tablet Take 1 tablet by mouth once daily. - traZODone (DESYREL) 150 mg tablet Take 1 tablet by mouth daily at bedtime. - albuterol HFA (PROVENTIL HFA, VENTOLIN HFA) 90 mcg/actuation inhaler Inhale 2 Puffs as instructed four times a day as needed for wheezing/shortness of breath. FOR WHEEZING AND SHORTNESS OF BREATH. - MULTIVITAMIN ORAL Take by mouth once daily. Meds Comments as of 06/07/2015: Patient has broken out recently feel like it is from her Trazadone Problem List As Of Date 02/11/2025 Noted Resolved Type 2 diabetes mellitus with stage 3a chronic *04/04/2015 Hypertension [I10] 04/04/2015 Hypothyroidism [E03.9] 04/04/2015 Morbid obesity (HCC) [E66.01] 04/04/2015 03/23/2019 Moderate persistent asthma without complication*07/11/2015 KAM (obstructive sleep apnea) CPAP intolerant [*09/26/2015 Insomnia [G47.00] 03/19/2016 RLS (restless legs syndrome) [G25.81] 02/15/2019 Kidney disease [N28.9] 03/23/2019 07/06/2019 Class 3 severe obesity with body mass index (BM*03/23/2019 Edema [R60.9] 03/23/2019 Other hyperlipidemia [E78.49] 03/23/2019 Stable angina pectoris (HCC) [I20.89] 06/26/2020 SOB (shortness of breath) [R06.02] 07/14/2020 05/01/2022 Multiple gallstones [K80.20] 03/20/2022 04/01/2023 Chronic pain of both shoulders [M25.511, G89.29*07/29/2022 Prescriptions ordered this encounter Disp Refills Start End SITAGLIPTIN PHOSPHATE 100 MG TABLET 30 t* 11 02/11/2025 Route: PO Sig: Take 1 tablet by mouth once daily. Medications Discontinued During This Encounter Prescriptions - alogliptin (NESINA) 25 mg tab (Discontinued) Take 1 tablet by mouth once daily. Encounter Status:Closed by LUCIANA BEL on 02/11/25 PROGRESS Observed: 02/07/2025 2:23 PM Status: COMPLETED Source: [facility] HNO ID: [id number] Author: KRISTIN BYRNE PA-C Service: ? Author Type: Physician Access Liaison Type: Progress Notes Filed: 02/07/2025 14:33 Note Text: [facility] [address] [facility] [address] Dept: [phone] Dept February 07, 2025 CHIEF COMPLAINT: New and Pain of the Left Shoulder and Pain and New of the Right Shoulder (Referred by Amy Ceballos) Bilateral Shoulder Pain: - Chronic bilateral shoulder pain x2 years, initially noticed after raking leaves. - Pain localized to the edges of the shoulders. - Denies known trauma or injury. - Worse at night, frequently waking Chloe; left shoulder is more painful. - Pain exacerbated by rolling over in bed; Chloe is a stomach and side sleeper. - Using topical Voltaren once daily with some relief; also takes meloxicam PRN despite being advised against it due to CKD. - Denies current use of Voltaren more than once daily. Diabetes: - Blood sugars currently out of control. - Last A1c was 8.6%. - Previously managed with insulin and Trulicity; pharmacy unable to supply Trulicity. - Prescribed Mounjaro, but discontinued due to cost ($265/month). - Upcoming appointment next month to discuss alternative medications. - Has a glucose monitor at home. Chronic Kidney Disease: - Advised against taking meloxicam due to CKD. ASSESSMENT: M25.511, M25.512 Bilateral shoulder pain, unspecified chronicity E11.65, Z79.4 Type 2 diabetes mellitus with hyperglycemia, with long-term current use of insulin ([facility]) N18.31 Stage 3a chronic kidney disease (HCC) PLAN: 1. Bilateral shoulder pain, unspecified chronicity (M25.511) - X-rays from November 08 show mild osteoarthritis in the glenohumeral and acromioclavicular joints bilaterally. - Differential diagnoses include rotator cuff tear and rotator cuff tendinitis. - Advised increasing topical Voltaren application to up to four times daily. - Recommended sleeping in a reclined position to alleviate nocturnal pain. - Once blood glucose levels are well-controlled, will consider corticosteroid injections to manage shoulder pain. 2. Type 2 diabetes mellitus with hyperglycemia, with long-term current use of insulin (HCC) (E11.65) - Hemoglobin A1c is 8.6%, indicating poor glycemic control. - Once glycemic control is achieved, will proceed with corticosteroid injections for shoulder pain. 3. Stage 3a chronic kidney disease (HCC) (N18.31) - Chronic kidney disease limits the use of oral NSAIDs for pain management. - Emphasized the importance of avoiding nephrotoxic medications. - Will monitor renal function closely, especially when considering corticosteroid injections. Will continue to monitor patient for Bilateral shoulder pain, unspecified chronicity Type 2 diabetes mellitus with hyperglycemia, with long-term current use of insulin (hcc) Stage 3a chronic kidney disease ([facility]), patient to schedule visit as per follow up discussed. Ms. Chloe Guillory was advised as to contrast therapies and/or to take analgesics/anti-inflammatories as needed and all contraindications were reviewed. OBJECTIVE: Ms. Chloe Guillory is a pleasant 74 year old in no apparent distress. Gen:There were no vitals taken for this visit. nl development, obese, no deformities ENT: Normocephalic, normal hearing, moist mucosa CV: Pulses:Radial= 2+ and symmetric, capillary refill < 2 secs, no peripheral edema/varicosities Skin: no rash, bruising or lesions. Good turgor. Psych: cooperative and appropriate, alert and oriented x 3, good mood and affect. Musculoskeletal: Right shoulder diffusely tender making exam difficult call, passive forward elevation of about 145 degrees with passive external rotation of about 50 degrees. Positive Pemberton and positive Neer impingement signs, 5 out of 5 strength testing on the right with supraspinatus, infraspinatus and subscapularis. Left shoulder is also diffusely tender making exam difficult, passive forward elevation about 130 degrees with passive external rotation to about 30 degrees. Positive Pemberton and positive Neer impingement signs, 5 out of 5 strength testing on the left with supraspinatus, infraspinatus and subscapularis. Imaging: IMPRESSION: 1. Osteoarthritis of the bilateral shoulders Supervisor Tower: JOHNSON Transcribe Date/Time: Nov 10 2024 5:27P Dictated by : WILL HALE MD This examination was interpreted and the report reviewed and electronically signed by: WLIL HALE MD on Nov 10 2024 5:28PM EST Results-Findings * * *Final Report* * * DATE OF EXAM: Nov 08 2024 2:23PM WOX 5252 - XR SHLDR >/=3V AP/KILEY AP/OTHR LT / PROCEDURE REASON: multiple diagnoses * * * * Physician Interpretation * * * * SHOULDER RADIOGRAPHS - BILATERAL HISTORY: Bilateral shoulder pain, unspecified chronicity TECHNOLOGIST PROVIDED HISTORY (if applicable): pain for 2 years all around both shoulder joints no inj TECHNIQUE: XR SHLDR >/=3V AP/KILEY AP/OTHR LT, XR SHLDR >/=3V AP/KILEY AP/OTHR RT COMPARISON: Bilateral shoulder radiographs 07/26/2022 RESULT: There is generalized osteopenia. Right shoulder: The glenohumeral joint demonstrates mild arthrosis with small marginal osteophytes. The acromioclavicular joint demonstrates moderate hypertrophic arthrosis. Soft tissues appear within normal limits. Left shoulder: The glenohumeral joint demonstrates mild arthrosis with small marginal osteophytes. Resolution of previously seen calcific tendinitis The acromioclavicular joint demonstrates moderate hypertrophic arthrosis. Soft tissues appear within normal limits. Supporting Subjective Information Below: Past Surgical History: PAST SURGICAL HISTORY Procedure Laterality Date APPENDECTOMY 1957 LAPAROSCOPY DIAGNOSTIC 2000 LEFT HEART CATH,PERCUTANEOUS 07/14/2020 wnl REMOVAL GALLBLADDER 05/07/2022 TONSILLECTOMY AND ADENOIDECTOMY HX 1957 TOTAL ABDOMINAL HYSTERECT W/WO RMVL TUBE OVARY 2000 Medications: Current Outpatient Medications Medication Sig Cyanocobalamin 1,000 mcg TbER Take 1 tablet by mouth once daily. levothyroxine (LEVOXYL) 50 mcg tablet Take 1 tablet by mouth once daily. Take on empty stomach. For Thyroid magnesium oxide (MAG-OX) 400 mg (241.3 mg magnesium) tablet Take 1 tablet by mouth once daily. BIOTIN ORAL Take by mouth. metFORMIN (GLUCOPHAGE) 500 mg tablet Take 2 tablets by mouth two times a day with meals. dilTIAZem HCl 360 mg 24 hr capsule Take 1 capsule by mouth once daily. fenofibrate nanocrystallized (TRICOR) 145 mg tablet Take 1 tablet by mouth once daily. fluticasone-salmeterol (WIXELA INHUB) 250-50 mcg/dose inhaler Inhale 1 Puff as instructed two times a day. Rinse and gargle mouth with water after each use. omeprazole (PRILOSEC) 40 mg capsule Take 1 capsule by mouth once daily. insulin glargine (LANTUS U-100 INSULIN) 100 unit/mL injection Inject 30 Units subcutaneously daily at bedtime. Insulin Syringe-Needle U-100 (INSULIN SYRINGE) 1 mL 29 gauge x 1/2 1 Each once daily. olmesartan (BENICAR) 20 mg tablet Take 1 tablet by mouth once daily. traZODone (DESYREL) 150 mg tablet Take 1 tablet by mouth daily at bedtime. albuterol HFA (PROVENTIL HFA, VENTOLIN HFA) 90 mcg/actuation inhaler Inhale 2 Puffs as instructed four times a day as needed for wheezing/shortness of breath. FOR WHEEZING AND SHORTNESS OF BREATH. MULTIVITAMIN ORAL Take by mouth once daily. tirzepatide (MOUNJARO) 2.5 mg/0.5 mL pen injector Inject 2.5 mg subcutaneously one time a week. (Patient not taking: Reported on 02/07/2025) No current facility-administered medications for this visit. Allergies: Atorvastatin, Dust, Jardiance [Empagliflozin], Mold, Cdfzdza-Djt-Bwe Reductase Inhibitors, and Victoza [Liraglutide] ROS: General (negative for fatigue, malaise, weight loss/gain) HEENT (negative for headache, earache, recent vision changes, sinus pain, sore throat) Respiratory (no recent shortness of breath, hemoptysis) CV (negative for chest tightness, palpitations) Musculoskeletal (see HPI) Psych (no depression, anxiety) This note was partially generated using [employer] voice recognition system, and there may be some incorrect words, spellings, and punctuation that were not noted in checking the note before saving. HENRIQUE Glass Observed: 02/07/2025 1:00 PM Status: COMPLETED Source: [facility] Office Visit (ORTHWS) KAHLILCHLOE ([id number]) 1950 F Date Time Provider Department 02/07/25 1:00 PM KRISTIN BYRNE During your visit today, we recorded the following information about you: Maggy Pizarro MA 02/07/2025 2:33 PM Signed Patient presents with: Left Shoulder - New, Pain Right Shoulder - Pain, New: Referred by Amy Ceballos AMB ROOMING INTAKE FLOWSHEET DATA Risk Screening Do you have concerns about personal safety or safety in the home?: No Pain Pain Level: (4-8) Pain Location: (bilateral shoulders) Description: Aching Duration Amount of Time: 2 Duration Units: Years Frequency: Continuous Intervention/Comfort measure: Medication. Patient states 2-3 years ago her pain started after she was raking leaves. She is having difficulty reaching above her head to put dishes away and reaching behind her back. She is having difficulty sleeping at night on her side and stomach due to the pain. Has been applying Voltaren gel and helps some makes it tolerable to use her shoulders. She does have Meloxicam she will take occasionally but is not suppose to take it due to she has problems with her kidneys. X-rays done on 11/08/24 Kristin Byrne PA-C 02/07/2025 2:33 PM Signed Kristin Byrne PA-C Department of Orthopaedics Orthopaedics [address] [facility] [address] Dept: [phone] Dept February 07, 2025 CHIEF COMPLAINT: New and Pain of the Left Shoulder and Pain and New of the Right Shoulder (Referred by Amy Ceballos) Bilateral Shoulder Pain: - Chronic bilateral shoulder pain x2 years, initially noticed after raking leaves. - Pain localized to the edges of the shoulders. - Denies known trauma or injury. - Worse at night, frequently waking Chloe; left shoulder is more painful. - Pain exacerbated by rolling over in bed; Chloe is a stomach and side sleeper. - Using topical Voltaren once daily with some relief; also takes meloxicam PRN despite being advised against it due to CKD. - Denies current use of Voltaren more than once daily. Diabetes: - Blood sugars currently out of control. - Last A1c was 8.6%. - Previously managed with insulin and Trulicity; pharmacy unable to supply Trulicity. - Prescribed Mounjaro, but discontinued due to cost ($265/month). - Upcoming appointment next month to discuss alternative medications. - Has a glucose monitor at home. Chronic Kidney Disease: - Advised against taking meloxicam due to CKD. ASSESSMENT: M25.511, M25.512 Bilateral shoulder pain, unspecified chronicity E11.65, Z79.4 Type 2 diabetes mellitus with hyperglycemia, with long-term current use of insulin ([facility]) N18.31 Stage 3a chronic kidney disease (HCC) PLAN: 1. Bilateral shoulder pain, unspecified chronicity (M25.511) - X-rays from November 08 show mild osteoarthritis in the glenohumeral and acromioclavicular joints bilaterally. - Differential diagnoses include rotator cuff tear and rotator cuff tendinitis. - Advised increasing topical Voltaren application to up to four times daily. - Recommended sleeping in a reclined position to alleviate nocturnal pain. - Once blood glucose levels are well-controlled, will consider corticosteroid injections to manage shoulder pain. 2. Type 2 diabetes mellitus with hyperglycemia, with long-term current use of insulin (HCC) (E11.65) - Hemoglobin A1c is 8.6%, indicating poor glycemic control. - Once glycemic control is achieved, will proceed with corticosteroid injections for shoulder pain. 3. Stage 3a chronic kidney disease (HCC) (N18.31) - Chronic kidney disease limits the use of oral NSAIDs for pain management. - Emphasized the importance of avoiding nephrotoxic medications. - Will monitor renal function closely, especially when considering corticosteroid injections. Will continue to monitor patient for Bilateral shoulder pain, unspecified chronicity Type 2 diabetes mellitus with hyperglycemia, with long-term current use of insulin (hcc) Stage 3a chronic kidney disease (hcc), patient to schedule visit as per follow up discussed. Ms. Chloe Guillory was advised as to contrast therapies and/or to take analgesics/anti-inflammatories as needed and all contraindications were reviewed. OBJECTIVE: Ms. Chloe E Schaad is a pleasant 74 year old in no apparent distress. Gen:There were no vitals taken for this visit. nl development, obese, no deformities ENT: Normocephalic, normal hearing, moist mucosa CV: Pulses:Radial= 2+ and symmetric, capillary refill < 2 secs, no peripheral edema/varicosities Skin: no rash, bruising or lesions. Good turgor. Psych: cooperative and appropriate, alert and oriented x 3, good mood and affect. Musculoskeletal: Right shoulder diffusely tender making exam difficult call, passive forward elevation of about 145 degrees with passive external rotation of about 50 degrees. Positive Pemberton and positive Neer impingement signs, 5 out of 5 strength testing on the right with supraspinatus, infraspinatus and subscapularis. Left shoulder is also diffusely tender making exam difficult, passive forward elevation about 130 degrees with passive external rotation to about 30 degrees. Positive Pemberton and positive Neer impingement signs, 5 out of 5 strength testing on the left with supraspinatus, infraspinatus and subscapularis. Imaging: IMPRESSION: 1. Osteoarthritis of the bilateral shoulders Supervisor Tower: JOHNSON Transcribe Date/Time: Nov 10 2024 5:27P Dictated by : WILL HALE MD This examination was interpreted and the report reviewed and electronically signed by: WILL HALE MD on Nov 10 2024 5:28PM EST Results-Findings * * *Final Report* * * DATE OF EXAM: Nov 08 2024 2:23PM WOX 5252 - XR SHLDR >/=3V AP/KILEY AP/OTHR LT / PROCEDURE REASON: multiple diagnoses * * * * Physician Interpretation * * * * SHOULDER RADIOGRAPHS - BILATERAL HISTORY: Bilateral shoulder pain, unspecified chronicity TECHNOLOGIST PROVIDED HISTORY (if applicable): pain for 2 years all around both shoulder joints no inj TECHNIQUE: XR SHLDR >/=3V AP/KILEY AP/OTHR LT, XR SHLDR >/=3V AP/KILEY AP/OTHR RT COMPARISON: Bilateral shoulder radiographs 07/26/2022 RESULT: There is generalized osteopenia. Right shoulder: The glenohumeral joint demonstrates mild arthrosis with small marginal osteophytes. The acromioclavicular joint demonstrates moderate hypertrophic arthrosis. Soft tissues appear within normal limits. Left shoulder: The glenohumeral joint demonstrates mild arthrosis with small marginal osteophytes. Resolution of previously seen calcific tendinitis The acromioclavicular joint demonstrates moderate hypertrophic arthrosis. Soft tissues appear within normal limits. Supporting Subjective Information Below: Past Surgical History: PAST SURGICAL HISTORY Procedure Laterality Date APPENDECTOMY 1957 LAPAROSCOPY DIAGNOSTIC 2000 LEFT HEART CATH,PERCUTANEOUS 07/14/2020 wnl REMOVAL GALLBLADDER 05/07/2022 TONSILLECTOMY AND ADENOIDECTOMY HX 1957 TOTAL ABDOMINAL HYSTERECT W/WO RMVL TUBE OVARY 2000 Medications: Current Outpatient Medications Medication Sig Cyanocobalamin 1,000 mcg TbER Take 1 tablet by mouth once daily. levothyroxine (LEVOXYL) 50 mcg tablet Take 1 tablet by mouth once daily. Take on empty stomach. For Thyroid magnesium oxide (MAG-OX) 400 mg (241.3 mg magnesium) tablet Take 1 tablet by mouth once daily. BIOTIN ORAL Take by mouth. metFORMIN (GLUCOPHAGE) 500 mg tablet Take 2 tablets by mouth two times a day with meals. dilTIAZem HCl 360 mg 24 hr capsule Take 1 capsule by mouth once daily. fenofibrate nanocrystallized (TRICOR) 145 mg tablet Take 1 tablet by mouth once daily. fluticasone-salmeterol (WIXELA INHUB) 250-50 mcg/dose inhaler Inhale 1 Puff as instructed two times a day. Rinse and gargle mouth with water after each use. omeprazole (PRILOSEC) 40 mg capsule Take 1 capsule by mouth once daily. insulin glargine (LANTUS U-100 INSULIN) 100 unit/mL injection Inject 30 Units subcutaneously daily at bedtime. Insulin Syringe-Needle U-100 (INSULIN SYRINGE) 1 mL 29 gauge x 1/2 1 Each once daily. olmesartan (BENICAR) 20 mg tablet Take 1 tablet by mouth once daily. traZODone (DESYREL) 150 mg tablet Take 1 tablet by mouth daily at bedtime. albuterol HFA (PROVENTIL HFA, VENTOLIN HFA) 90 mcg/actuation inhaler Inhale 2 Puffs as instructed four times a day as needed for wheezing/shortness of breath. FOR WHEEZING AND SHORTNESS OF BREATH. MULTIVITAMIN ORAL Take by mouth once daily. tirzepatide (MOUNJARO) 2.5 mg/0.5 mL pen injector Inject 2.5 mg subcutaneously one time a week. (Patient not taking: Reported on 02/07/2025) No current facility-administered medications for this visit. Allergies: Atorvastatin, Dust, Jardiance [Empagliflozin], Mold, Slndhbi-Xnm-Psq Reductase Inhibitors, and Victoza [Liraglutide] ROS: General (negative for fatigue, malaise, weight loss/gain) HEENT (negative for headache, earache, recent vision changes, sinus pain, sore throat) Respiratory (no recent shortness of breath, hemoptysis) CV (negative for chest tightness, palpitations) Musculoskeletal (see HPI) Psych (no depression, anxiety) This note was partially generated using [employer] voice recognition system, and there may be some incorrect words, spellings, and punctuation that were not noted in checking the note before saving. Kristin Byrne PA-C Referring Provider: MICHELLE CEBALLOS [[id number]] Allergies As of Date: 02/07/2025 Noted Allergy Reaction ATORVASTATIN 11/08/2024 17 - Myalgia Comments: Craps in all muscles DUST 09/26/2015 3 - Cough JARDIANCE (EMPAGLIFLOZIN) 01/27/2018 14 - Other: See Comments Comments: Became suicidal MOLD 03/19/2016 12 - Shortness of Breath [id number] REDUCTASE INHIBIT*04/04/2015 17 - Myalgia VICTOZA (LIRAGLUTIDE) 01/27/2018 14 - Other: See Comments Comments: Thinks she had thyroid issues from it. Date Reviewed: 02/07/2025 Reviewed by: Maggy Pizarro MA - Fully Assessed Reason for Visit: New [[id number]] Pain [78] Pain [78] Cmt: Referred by Amy Ceballos New [[id number]] Cmt: Referred by Amy Ceballos Visit Diagnoses:Bilateral shoulder pain, unspecified chronicity [M25.511, M25.512] Type 2 diabetes mellitus with hyperglycemia, with long-term current use of insulin (HCC) [E11.65, Z79.4] Stage 3a chronic kidney disease (HCC) [N18.31] Order(s):CONSULT PANEL TO ORTHOPAEDICS [289352] Order #: [id number]: 1 Prescriptions as of 02/07/2025 - tirzepatide (MOUNJARO) 2.5 mg/0.5 mL pen injector Inject 2.5 mg subcutaneously one time a week. - Cyanocobalamin 1,000 mcg TbER Take 1 tablet by mouth once daily. - levothyroxine (LEVOXYL) 50 mcg tablet Take 1 tablet by mouth once daily. Take on empty stomach. For Thyroid - magnesium oxide (MAG-OX) 400 mg (241.3 mg magnesium) tablet Take 1 tablet by mouth once daily. - BIOTIN ORAL Take by mouth. - metFORMIN (GLUCOPHAGE) 500 mg tablet Take 2 tablets by mouth two times a day with meals. - dilTIAZem HCl 360 mg 24 hr capsule Take 1 capsule by mouth once daily. - fenofibrate nanocrystallized (TRICOR) 145 mg tablet Take 1 tablet by mouth once daily. - fluticasone-salmeterol (WIXELA INHUB) 250-50 mcg/dose inhaler Inhale 1 Puff as instructed two times a day. Rinse and gargle mouth with water after each use. - omeprazole (PRILOSEC) 40 mg capsule Take 1 capsule by mouth once daily. - insulin glargine (LANTUS U-100 INSULIN) 100 unit/mL injection Inject 30 Units subcutaneously daily at bedtime. - Insulin Syringe-Needle U-100 (INSULIN SYRINGE) 1 mL 29 gauge x 1/2 1 Each once daily. - olmesartan (BENICAR) 20 mg tablet Take 1 tablet by mouth once daily. - traZODone (DESYREL) 150 mg tablet Take 1 tablet by mouth daily at bedtime. - albuterol HFA (PROVENTIL HFA, VENTOLIN HFA) 90 mcg/actuation inhaler Inhale 2 Puffs as instructed four times a day as needed for wheezing/shortness of breath. FOR WHEEZING AND SHORTNESS OF BREATH. - MULTIVITAMIN ORAL Take by mouth once daily. Meds Comments as of 06/07/2015: Patient has broken out recently feel like it is from her Trazadone Problem List As Of Date 02/07/2025 Noted Resolved Type 2 diabetes mellitus with stage 3a chronic *04/04/2015 Hypertension [I10] 04/04/2015 Hypothyroidism [E03.9] 04/04/2015 Morbid obesity (HCC) [E66.01] 04/04/2015 03/23/2019 Moderate persistent asthma without complication*07/11/2015 KAM (obstructive sleep apnea) CPAP intolerant [*09/26/2015 Insomnia [G47.00] 03/19/2016 RLS (restless legs syndrome) [G25.81] 02/15/2019 Kidney disease [N28.9] 03/23/2019 07/06/2019 Class 3 severe obesity with body mass index (BM*03/23/2019 Edema [R60.9] 03/23/2019 Other hyperlipidemia [E78.49] 03/23/2019 Stable angina pectoris (HCC) [I20.89] 06/26/2020 SOB (shortness of breath) [R06.02] 07/14/2020 05/01/2022 Multiple gallstones [K80.20] 03/20/2022 04/01/2023 Chronic pain of both shoulders [M25.511, G89.29*07/29/2022 Letter Text Encounter Status:Closed by KRISTIN BYRNE on 02/07/25 PROGRESS Observed: 02/07/2025 12:55 PM Status: COMPLETED Source: [facility] HNO ID: [id number] Author: MAGGY PIZARRO MA Service: ? Author Type: Chicken Boner Type: Progress Notes Filed: 02/07/2025 14:33 Note Text: Patient presents with: Left Shoulder - New, Pain Right Shoulder - Pain, New: Referred by Amy Ceballos AMB ROOMING INTAKE FLOWSHEET DATA Risk Screening Do you have concerns about personal safety or safety in the home?: No Pain Pain Level: (4-8) Pain Location: (bilateral shoulders) Description: Aching Duration Amount of Time: 2 Duration Units: Years Frequency: Continuous Intervention/Comfort measure: Medication. Patient states 2-3 years ago her pain started after she was raking leaves. She is having difficulty reaching above her head to put dishes away and reaching behind her back. She is having difficulty sleeping at night on her side and stomach due to the pain. Has been applying Voltaren gel and helps some makes it tolerable to use her shoulders. She does have Meloxicam she will take occasionally but is not suppose to take it due to she has problems with her kidneys. X-rays done on 11/08/24 CNPN Observed: 01/12/2025 12:00 AM Status: COMPLETED Source: [facility] Telephone (FAMPWS) KAHLILCHLOE Wilma ([id number]) 1950 F Date Time Provider Department 01/12/25 MICHEL[facility]ALLOS [facility] During your visit today, we recorded the following information about you: Danii Amanda LPN 01/12/2025 11:39 AM Signed Alyse GUNN sends fax with comment below: Insurance pays for this twice per 365 days then PA is required. [facility] [place] Uyen Clemens MA 01/12/2025 11:43 AM Signed Electronic PA submitted SUNNY Cote [place], [place] 01/12/2025 12:19 PM Signed PA approved and left vm for patient Authorized from September 01, 2024 to August 31, 2025 Information received electronically from payer Uyen Clemens MA Allergies As of Date: 01/12/2025 Noted Allergy Reaction ATORVASTATIN 11/08/2024 17 - Myalgia Comments: Craps in all muscles DUST 09/26/2015 3 - Cough JARDIANCE (EMPAGLIFLOZIN) 01/27/2018 14 - Other: See Comments Comments: Became suicidal MOLD 03/19/2016 12 - Shortness of Breath [id number] REDUCTASE INHIBIT*04/04/2015 17 - Myalgia VICTOZA (LIRAGLUTIDE) 01/27/2018 14 - Other: See Comments Comments: Thinks she had thyroid issues from it. Date Reviewed: 11/08/2024 Reviewed by: Bel Wade MA - Fully Assessed Reason for Visit: Insurance Authorization [[id number]] Cmt: Mounjaro Prescriptions as of 01/12/2025 - tirzepatide (MOUNJARO) 2.5 mg/0.5 mL pen injector Inject 2.5 mg subcutaneously one time a week. - Cyanocobalamin 1,000 mcg TbER Take 1 tablet by mouth once daily. - levothyroxine (LEVOXYL) 50 mcg tablet Take 1 tablet by mouth once daily. Take on empty stomach. For Thyroid - magnesium oxide (MAG-OX) 400 mg (241.3 mg magnesium) tablet Take 1 tablet by mouth once daily. - BIOTIN ORAL Take by mouth. - metFORMIN (GLUCOPHAGE) 500 mg tablet Take 2 tablets by mouth two times a day with meals. - dilTIAZem HCl 360 mg 24 hr capsule Take 1 capsule by mouth once daily. - fenofibrate nanocrystallized (TRICOR) 145 mg tablet Take 1 tablet by mouth once daily. - fluticasone-salmeterol (WIXELA INHUB) 250-50 mcg/dose inhaler Inhale 1 Puff as instructed two times a day. Rinse and gargle mouth with water after each use. - omeprazole (PRILOSEC) 40 mg capsule Take 1 capsule by mouth once daily. - insulin glargine (LANTUS U-100 INSULIN) 100 unit/mL injection Inject 30 Units subcutaneously daily at bedtime. - Insulin Syringe-Needle U-100 (INSULIN SYRINGE) 1 mL 29 gauge x 1/2 1 Each once daily. - olmesartan (BENICAR) 20 mg tablet Take 1 tablet by mouth once daily. - traZODone (DESYREL) 150 mg tablet Take 1 tablet by mouth daily at bedtime. - albuterol HFA (PROVENTIL HFA, VENTOLIN HFA) 90 mcg/actuation inhaler Inhale 2 Puffs as instructed four times a day as needed for wheezing/shortness of breath. FOR WHEEZING AND SHORTNESS OF BREATH. - MULTIVITAMIN ORAL Take by mouth once daily. Meds Comments as of 06/07/2015: Patient has broken out recently feel like it is from her Trazadone Problem List As Of Date 01/12/2025 Noted Resolved Type 2 diabetes mellitus with stage 3a chronic *04/04/2015 Hypertension [I10] 04/04/2015 Hypothyroidism [E03.9] 04/04/2015 Morbid obesity (HCC) [E66.01] 04/04/2015 03/23/2019 Moderate persistent asthma without complication*07/11/2015 KAM (obstructive sleep apnea) CPAP intolerant [*09/26/2015 Insomnia [G47.00] 03/19/2016 RLS (restless legs syndrome) [G25.81] 02/15/2019 Kidney disease [N28.9] 03/23/2019 07/06/2019 Class 3 severe obesity with body mass index (BM*03/23/2019 Edema [R60.9] 03/23/2019 Other hyperlipidemia [E78.49] 03/23/2019 Stable angina pectoris (HCC) [I20.89] 06/26/2020 SOB (shortness of breath) [R06.02] 07/14/2020 05/01/2022 Multiple gallstones [K80.20] 03/20/2022 04/01/2023 Chronic pain of both shoulders [M25.511, G89.29*07/29/2022 Encounter Status:Closed by UYEN CLEMENS on 01/12/25 PROGRESS Observed: 12/06/2024 2:17 PM Status: COMPLETED Source: [facility] HNO ID: [id number] Author: VIVEK LAM RPh Service: ? Author Type: Pharmacist Type: Progress Notes Filed: 12/06/2024 14:17 Note Text: Primary Care Pharmacy Panel Management This patient has been identified through Specialty Integration/Value-Based [employer] Diabetes Registry Review by the primary care pharmacy team. After review, determined that the patient is not a candidate for pharmacy referral at this time due to anticipating A1c will improve on recheck. (Mounjaro was started following most recent A1c; previously controlled). Vivek Lam RPh CNPTOUTREACH Observed: 12/06/2024 12:00 AM Status: COMPLETED Source: [facility] Patient Outreach (PMSTOW) CHLOE GUILLORY ([id number]) 1950 F Date Time Provider Department 12/06/24 VIVEK LAM PMSTOW During your visit today, we recorded the following information about you: Vivek Lam RPh 12/06/2024 2:17 PM Signed Primary Care Pharmacy Panel Management This patient has been identified through Specialty Integration/Value-Based Operations Diabetes Registry Review by the primary care pharmacy team. After review, determined that the patient is not a candidate for pharmacy referral at this time due to anticipating A1c will improve on recheck. (Mounjaro was started following most recent A1c; previously controlled). Vivek Lam RPh Allergies As of Date: 12/06/2024 Noted Allergy Reaction ATORVASTATIN 11/08/2024 17 - Myalgia Comments: Craps in all muscles DUST 09/26/2015 3 - Cough JARDIANCE (EMPAGLIFLOZIN) 01/27/2018 14 - Other: See Comments Comments: Became suicidal MOLD 03/19/2016 12 - Shortness of Breath [id number] REDUCTASE INHIBIT*04/04/2015 17 - Myalgia VICTOZA (LIRAGLUTIDE) 01/27/2018 14 - Other: See Comments Comments: Thinks she had thyroid issues from it. Date Reviewed: 11/08/2024 Reviewed by: Bel Wade MA - Fully Assessed Prescriptions as of 12/06/2024 - tirzepatide (MOUNJARO) 2.5 mg/0.5 mL pen injector Inject 2.5 mg subcutaneously one time a week. - Cyanocobalamin 1,000 mcg TbER Take 1 tablet by mouth once daily. - levothyroxine (LEVOXYL) 50 mcg tablet Take 1 tablet by mouth once daily. Take on empty stomach. For Thyroid - magnesium oxide (MAG-OX) 400 mg (241.3 mg magnesium) tablet Take 1 tablet by mouth once daily. - BIOTIN ORAL Take by mouth. - metFORMIN (GLUCOPHAGE) 500 mg tablet Take 2 tablets by mouth two times a day with meals. - dilTIAZem HCl 360 mg 24 hr capsule Take 1 capsule by mouth once daily. - fenofibrate nanocrystallized (TRICOR) 145 mg tablet Take 1 tablet by mouth once daily. - fluticasone-salmeterol (WIXELA INHUB) 250-50 mcg/dose inhaler Inhale 1 Puff as instructed two times a day. Rinse and gargle mouth with water after each use. - omeprazole (PRILOSEC) 40 mg capsule Take 1 capsule by mouth once daily. - insulin glargine (LANTUS U-100 INSULIN) 100 unit/mL injection Inject 30 Units subcutaneously daily at bedtime. - Insulin Syringe-Needle U-100 (INSULIN SYRINGE) 1 mL 29 gauge x 1/2 1 Each once daily. - olmesartan (BENICAR) 20 mg tablet Take 1 tablet by mouth once daily. - traZODone (DESYREL) 150 mg tablet Take 1 tablet by mouth daily at bedtime. - albuterol HFA (PROVENTIL HFA, VENTOLIN HFA) 90 mcg/actuation inhaler Inhale 2 Puffs as instructed four times a day as needed for wheezing/shortness of breath. FOR WHEEZING AND SHORTNESS OF BREATH. - MULTIVITAMIN ORAL Take by mouth once daily. Meds Comments as of 06/07/2015: Patient has broken out recently feel like it is from her Trazadone Problem List As Of Date 12/06/2024 Noted Resolved Type 2 diabetes mellitus with stage 3a chronic *04/04/2015 Hypertension [I10] 04/04/2015 Hypothyroidism [E03.9] 04/04/2015 Morbid obesity (HCC) [E66.01] 04/04/2015 03/23/2019 Moderate persistent asthma without complication*07/11/2015 KAM (obstructive sleep apnea) CPAP intolerant [*09/26/2015 Insomnia [G47.00] 03/19/2016 RLS (restless legs syndrome) [G25.81] 02/15/2019 Kidney disease [N28.9] 03/23/2019 07/06/2019 Class 3 severe obesity with body mass index (BM*03/23/2019 Edema [R60.9] 03/23/2019 Other hyperlipidemia [E78.49] 03/23/2019 Stable angina pectoris (HCC) [I20.89] 06/26/2020 SOB (shortness of breath) [R06.02] 07/14/2020 05/01/2022 Multiple gallstones [K80.20] 03/20/2022 04/01/2023 Chronic pain of both shoulders [M25.511, G89.29*07/29/2022 Encounter Status:Closed by VIVEK LAM on 12/06/24 PROGRESS Observed: 12/02/2024 2:01 PM Status: COMPLETED Source: [facility] HNO ID: [id number] Author: OPHELAI VILLATORO MA Service: ? Author Type: Chicken Boner Type: Progress Notes Filed: 12/02/2024 14:03 Note Text: POPULATION HEALTH NAVIGATION OUTREACH Action/FYI Patient called back and she has kit, will complete and return. Reason for Outreach Returned Call/MyChart Patient Contacted: Spoke to patient/parent/or legal guardian Patient identified by name and date of : Yes Returned call/MyChart actions taken: No action required Navigation Signature: Ophelia Villatoro MA December 02, 2024 2:01 PM PROGRESS Observed: 12/01/2024 1:54 PM Status: COMPLETED Source: [facility] HNO ID: [id number] Author: OPHELIA VILLATORO MA Service: ? Author Type: Chicken Boner Type: Progress Notes Filed: 12/01/2024 13:58 Note Text: POPULATION HEALTH NAVIGATION OUTREACH Action/FYI Left message for patient to call back. Reason for Outreach Care Gap/HCC or Scheduling Wellness Visits Care Gaps due: Colorectal Cancer Screening Patient Contacted: Unable or unnecessary to reach patient: Left message Navigation Signature: Ophelia Villatoro MA December 01, 2024 1:55 PM CHERI Observed: 12/01/2024 12:00 AM Status: COMPLETED Source: [facility] Patient Outreach (NETNAV) CHLOE GUILLORY ([id number]) 1950 F Date Time Provider Department 12/01/24 OPHELIA VILLATORO During your visit today, we recorded the following information about you: Ophelia Villatoro MA 12/01/2024 1:58 PM Signed POPULATION HEALTH NAVIGATION OUTREACH Action/FYI Left message for patient to call back. Reason for Outreach Care Gap/HCC or Scheduling Wellness Visits Care Gaps due: Colorectal Cancer Screening Patient Contacted: Unable or unnecessary to reach patient: Left message Navigation Signature: Ophelia Villatoro MA December 01, 2024 1:55 PM Ophelia Villatoro MA 12/02/2024 2:03 PM Signed POPULATION HEALTH NAVIGATION OUTREACH Action/FYI Patient called back and she has kit, will complete and return. Reason for Outreach Returned Call/MyChart Patient Contacted: Spoke to patient/parent/or legal guardian Patient identified by name and date of : Yes Returned call/MyChart actions taken: No action required Navigation Signature: Ophelia Villatoro MA December 02, 2024 2:01 PM Allergies As of Date: 12/01/2024 Noted Allergy Reaction ATORVASTATIN 11/08/2024 17 - Myalgia Comments: Craps in all muscles DUST 09/26/2015 3 - Cough JARDIANCE (EMPAGLIFLOZIN) 01/27/2018 14 - Other: See Comments Comments: Became suicidal MOLD 03/19/2016 12 - Shortness of Breath [id number] REDUCTASE INHIBIT*04/04/2015 17 - Myalgia VICTOZA (LIRAGLUTIDE) 01/27/2018 14 - Other: See Comments Comments: Thinks she had thyroid issues from it. Date Reviewed: 11/08/2024 Reviewed by: Bel Wade MA - Fully Assessed Reason for Visit: Population Health Navigation Outreach [3910] Cmt: Bing Sutherland kits Prescriptions as of 12/02/2024 - tirzepatide (MOUNJARO) 2.5 mg/0.5 mL pen injector Inject 2.5 mg subcutaneously one time a week. - Cyanocobalamin 1,000 mcg TbER Take 1 tablet by mouth once daily. - levothyroxine (LEVOXYL) 50 mcg tablet Take 1 tablet by mouth once daily. Take on empty stomach. For Thyroid - magnesium oxide (MAG-OX) 400 mg (241.3 mg magnesium) tablet Take 1 tablet by mouth once daily. - BIOTIN ORAL Take by mouth. - metFORMIN (GLUCOPHAGE) 500 mg tablet Take 2 tablets by mouth two times a day with meals. - dilTIAZem HCl 360 mg 24 hr capsule Take 1 capsule by mouth once daily. - fenofibrate nanocrystallized (TRICOR) 145 mg tablet Take 1 tablet by mouth once daily. - fluticasone-salmeterol (WIXELA INHUB) 250-50 mcg/dose inhaler Inhale 1 Puff as instructed two times a day. Rinse and gargle mouth with water after each use. - omeprazole (PRILOSEC) 40 mg capsule Take 1 capsule by mouth once daily. - insulin glargine (LANTUS U-100 INSULIN) 100 unit/mL injection Inject 30 Units subcutaneously daily at bedtime. - Insulin Syringe-Needle U-100 (INSULIN SYRINGE) 1 mL 29 gauge x 1/2 1 Each once daily. - olmesartan (BENICAR) 20 mg tablet Take 1 tablet by mouth once daily. - traZODone (DESYREL) 150 mg tablet Take 1 tablet by mouth daily at bedtime. - albuterol HFA (PROVENTIL HFA, VENTOLIN HFA) 90 mcg/actuation inhaler Inhale 2 Puffs as instructed four times a day as needed for wheezing/shortness of breath. FOR WHEEZING AND SHORTNESS OF BREATH. - MULTIVITAMIN ORAL Take by mouth once daily. Meds Comments as of 06/07/2015: Patient has broken out recently feel like it is from her Trazadone Problem List As Of Date 12/01/2024 Noted Resolved Type 2 diabetes mellitus with stage 3a chronic *04/04/2015 Hypertension [I10] 04/04/2015 Hypothyroidism [E03.9] 04/04/2015 Morbid obesity (HCC) [E66.01] 04/04/2015 03/23/2019 Moderate persistent asthma without complication*07/11/2015 KAM (obstructive sleep apnea) CPAP intolerant [*09/26/2015 Insomnia [G47.00] 03/19/2016 RLS (restless legs syndrome) [G25.81] 02/15/2019 Kidney disease [N28.9] 03/23/2019 07/06/2019 Class 3 severe obesity with body mass index (BM*03/23/2019 Edema [R60.9] 03/23/2019 Other hyperlipidemia [E78.49] 03/23/2019 Stable angina pectoris (HCC) [I20.89] 06/26/2020 SOB (shortness of breath) [R06.02] 07/14/2020 05/01/2022 Multiple gallstones [K80.20] 03/20/2022 04/01/2023 Chronic pain of both shoulders [M25.511, G89.29*07/29/2022 Encounter Status:Closed by OPHELIA VILLATORO on 12/01/24 DEPRECATED HGB A1C BLD Collected: 11/09 10:25 AM Status: F Source: [facility] Comment: Specimen Type : BLOOD SPECIMEN Ordering Facility: [facility] Address: [address] [place] [address] TYPE CODE TESTS RESULT OUT OF RANGE REFERENCE UNITS LAB 4548-4(LOINC) HbA1c MFr Bld 8.6 High 4.3-5.6 % Result Comment: [place] [employer] betes Association guidelines indicate that patients with HgbA1c in the range 5.7-6.4% are at increased risk for development of diabetes, and intervention by lifestyle modification may be beneficial. HgbA1c greater or equal to 6.5% is considered diagnostic of diabetes. LAB 42310-7(LOINC) Est. average glucose Bld gHb Est-mCnc 200 mg/dL Result Comment: eAG: (Estima vance average glucose) is a calculated value from HgbA1c and is sales representative graphic art of the average blood glucose level in the last 2-3 month period. Performed By: #### 12869-1 # ### [facility] CLIA [id number] [address] [place] [address] [place] CBC W AUTO DIFF BLD Collected: 11/09/2024 10:25 AM S tatus: F Source: [facility] Comment: Specimen Type : BLOOD SPECIMEN Ordering Facility: [facility] Address: [address] [place], [place] [id number] TYPE CODE TESTS RESULT OUT OF RANGE REFERENCE UNITS LAB 6690-2(LOINC) WBC # Bld Auto 7.08 3.70-11.00 k/uL LAB 789-8(LOINC) RBC # Bld Auto 3.91 3.90-5.20 m/ uL LAB 718-7(LOINC) Hgb Bld-mCnc 10.8 Low 11.5-15.5 g/dL LAB 4544-3(LOINC) Hct VFr Bld Auto 34.6 Low 36.0-46.0 % LAB 787-2(LOINC) MCV RBC Auto 88.5 80.0-100.0 fL LAB 785-6([facility]) MCH RBC Qn Auto 27.6 26.0-34.0 p g LAB 786-4([facility]) MCHC RBC Auto-mCnc 31.2 30.5-36.0 g/dL LAB 72247-0([facility]) RDW RBC-Rto 13.9 11.5-15.0 % LAB 777-3([facility]) Platelet # Bld Auto 352 150-400 k/uL LAB 01687-3([facility]) PMV Bld Auto 9.8 9.0-12.7 fL LAB 770-8([facility]) Neutrophils/leuk NFr Bld Auto 41.9 % LAB 751-8([facility]) Neutrophils # Bld Auto 2.96 1.45-7.50 k/uL LAB 736-9([facility]) Lymphocytes/leuk NFr Bld Auto 42.9 % LAB 731-0([facility]) Lymphocytes # Bld Auto 3.04 1.00-4.00 k/uL LAB 5905-5([facility]) Monocytes/leuk NFr Bld Auto 7.6 % LAB 742-7([facility]) Monocytes # Bld Auto 0.54 <0.87 k/uL LAB 713-8([facility]) Eosinophil/leuk NFr Bld Auto 6.5 % LAB 711-2([facility]) Eosinophil # Bld Auto 0.46 High <0.46 k/uL LAB 706-2([facility]) Basophils/leuk NFr Bld Auto 0.8 % LAB 704-7([facility]) Basophils # Bld Auto 0.06 <0.11 k/uL LAB 91786-0([facility]) Imm Granulocytes/pablito k NFr Bld Auto 0.3 % LAB 52864-0([facility]) Imm Granulocytes # Bld Auto <0.03 <0.10 k/uL LAB 95475-9([facility]) nRBC/100 WBC Bld-Rto 0.0 /100 WBC LAB 771-6([facility]) nRBC # Bld Auto <0.01 <0.01 k/u L LAB 49985-7([facility]) Differential method Bld Auto Performed By: #### 64783-1 # ### [facility] CLIA [id number] [address] [facility] [place] [address] [place] BAS METAB 2000 PNL SERPL Collected: 07/2025 10:25 AM Status: F Source: [facility] Order Comment: Specimen Type : BLOOD SPECIMEN Ordering Facility: [facility] Address: [address] [place] [address] TYPE CODE TESTS RESULT OUT OF RANGE REFERENCE UNITS LAB 2345-7(LOINC) Glucose SerPl-mCnc 153 High 74-99 mg/dL Result Comment: The [place] Diabetes Association (ADA) provides guidance for cutoff values for fasting glucose and random glucose. The ADA defines fasting as no caloric intake for at least 8 hours. Fasting plasma glucose results between 100 to 125 mg/dL indicate increased risk for diabetes (prediabetes). Fasting plasma glucose results greater than or equal to 126 mg/dL meet the criteria for diagnosis of diabetes. In the absence of unequivocal hyperglycemia, results should be confirmed by repeat testing. In a patient with classic symptoms of hyperglycemia or hyperglycemic crisis, random plasma glucose results greater than or equal to 200 mg/dL meet the criteria for diagnosis of diabetes. Reference: Standards of Medical Care in Diabetes 2016, [place] Diabetes Association. Diabetes Care. 2016.39(Suppl 1). LAB 3094-0(LOINC) BUN SerPl-mCnc 22 High 7-21 mg/ dL LAB 2160-0(LOINC) Creat SerPl-mCnc 1.06 High 0.58-0.96 mg/dL LAB 2951-2(LOINC) Sodium SerPl-sCnc 143 136-144 mmol/L LAB 2823-3(LOINC) Potassium SerPl-sCnc 4.4 3.7-5.1 mmol/L LAB 2075-0(LOINC) Chloride SerPl-sCnc 104 98-107 mmol/L LAB 2028-9(LOINC) CO2 SerPl-sCnc 28 22-30 mmo l/L LAB 44688-2(LOINC) Anion Gap SerPl-sCnc 11 8-15 mmol/L LAB 29755-6(LOINC) Calcium SerPl-mCnc 9.5 8.5-10.2 mg/dL LAB 82745-9(LOINC) Creatinine + eGFR Pnl SerPlBld 56 Low >=60 mL/min/1 .73m??? Result Comment: Estimated Gl omerular Filtration Rate (eGFR) is calculated using the 2020 CKD-EPI creatinine equation. This equation utilizes serum creatinine, sex, and age as parameters. The creatinine assay has traceable calibration to isotope dilution-mass spectrometry. Refer to KDIGO guidelines for clinical interpretation. In patients with unstable renal function, e.g. those with acute kidney injury, the eGFR may not accurately reflect actual GFR. Performed By: #### 3016-3, 2 4321-2, , 2132-05 #### [facility] CLIA [id number] [address] [place] [address] [place] MAGNESIUM SERPL-MCNC Collected: 025 10:25 AM Status: F Source: [facility] Comment: Specimen Type : BLOOD SPECIMEN Ordering Facility: [facility] Address: [address] [place] [address] TYPE CODE TESTS RESULT OUT OF RANGE REFERENCE UNITS LAB 66292-3(LOINC) Magnesium SerPl-mCnc 1.6 Low 1.7-2.3 mg/dL Performed By: #### 3016-3, 2 4320-2, , 2132-05 #### [facility] CLIA [id number] [address] [place] [address] [place] VIT B12 SERPL-MCNC Collected: 5 10:25 AM Status: F Source: [facility] Order Comment: Specimen Type : BLOOD SPECIMEN Ordering Facility: [facility] Address: [address] [place] [address] TYPE CODE TESTS RESULT OUT OF RANGE REFERENCE UNITS LAB 2131-9(LOINC) Vit B12 SerPl-mCnc 223 Low 232-1245 pg/mL Performed By: #### 3016-3, 2 4320-2, , 2132-05 #### [facility] CLIA [id number] [address] [place] [address] [place] TSH SERPL-ACNC Collected: 5 10:25 AM Status: F Source: [facility] Order Comment: Specimen Type : BLOOD SPECIMEN Ordering Facility: [facility] Address: [address] [place] [address] TYPE CODE TESTS RESULT OUT OF RANGE REFERENCE UNITS LAB 3016-3(LOINC) TSH SerPl-aCnc 2.570 0.270-4.200 mIU/L Performed By: #### 3016-3, 2 4321-2, 82929-2, 2132-9 #### [facility] CLIA [id number] [address] [place] [address] XR SHLDR >/=3V AP/KILEY AP/OTH R LT Observed: 11/08/2024 2:23 PM Status: F Source: [facility] * * *Final Report* * * DATE OF EXAM: Nov 08 2024 2:23PM WOX 5252 - XR SHLDR >/=3V AP/KILEY AP/OTHR LT / PROCEDURE REASON: multiple diagnoses * * * * Physician Interpretation * * * * SHOULDER RADIOGRAPHS - BILATERAL HISTORY: Bilateral shoulder pain, unspecified chronicity TECHNOLOGIST PROVIDED HISTORY (if applicable): pain for 2 years all around both shoulder joints no inj TECHNIQUE: XR SHLDR >/=3V AP/KILEY AP/OTHR LT, XR SHLDR >/=3V AP/KILEY AP/OTHR RT COMPARISON: Bilateral shoulder radiographs 07/26/2022 RESULT: There is generalized osteopenia. Right shoulder: The glenohumeral joint demonstrates mild arthrosis with small marginal osteophytes. The acromioclavicular joint demonstrates moderate hypertrophic arthrosis. Soft tissues appear within normal limits. Left shoulder: The glenohumeral joint demonstrates mild arthrosis with small marginal osteophytes. Resolution of previously seen calcific tendinitis The acromioclavicular joint demonstrates moderate hypertrophic arthrosis. Soft tissues appear within normal limits. IMPRESSION: 1. Osteoarthritis of the bilateral shoulders Supervisor Tower: [facility] Transcribe Date/Time: Nov 10 2024 5:27P Dictated by : WILL HALE MD This examination was interpreted and the report reviewed and electronically signed by: WILL HALE MD on Nov 10 2024 5:28PM EST [id number] XR SHLDR >/=3V AP/KILEY AP/OTH R RT Observed: 11/08/2024 2:23 PM Status: F Source: [facility] * * *Final Report* * * DATE OF EXAM: Nov 08 2024 2:23PM WOX 5253 - XR SHLDR >/=3V AP/KILEY AP/OTHR RT / PROCEDURE REASON: multiple diagnoses * * * * Physician Interpretation * * * * SHOULDER RADIOGRAPHS - BILATERAL HISTORY: Bilateral shoulder pain, unspecified chronicity TECHNOLOGIST PROVIDED HISTORY (if applicable): pain for 2 years all around both shoulder joints no inj TECHNIQUE: XR SHLDR >/=3V AP/KILEY AP/OTHR LT, XR SHLDR >/=3V AP/KILEY AP/OTHR RT COMPARISON: Bilateral shoulder radiographs 07/26/2022 RESULT: There is generalized osteopenia. Right shoulder: The glenohumeral joint demonstrates mild arthrosis with small marginal osteophytes. The acromioclavicular joint demonstrates moderate hypertrophic arthrosis. Soft tissues appear within normal limits. Left shoulder: The glenohumeral joint demonstrates mild arthrosis with small marginal osteophytes. Resolution of previously seen calcific tendinitis The acromioclavicular joint demonstrates moderate hypertrophic arthrosis. Soft tissues appear within normal limits. IMPRESSION: 1. Osteoarthritis of the bilateral shoulders Supervisor Tower: [facility] Transcribe Date/Time: Nov 10 2024 5:27P Dictated by : WILL HALE MD This examination was interpreted and the report reviewed and electronically signed by: WILL HALE MD on Nov 10 2024 5:28PM EST [id number] PROGRESS Observed: 11/08/2024 1:50 PM Status: COMPLETED Source: [facility] HNO ID: [id number] Author: SHAHRIAR OROZCO RT(R) Service: Radiology Author Type: Technologist Type: Progress Notes Filed: 11/08/2024 14:22 Note Text: Radiology Service Progress Note PATIENT NAME: Chloe Guillory DATE OF SERVICE: November 08, 2024 TIME: 1:57 PM PATIENT IDENTITY VERIFICATION COMPLETED USING TWO (2) IDENTIFIERS: Name and Date of confirmed by patient verbally. FALL SCREENING: Has the patient had 2 falls in the last year or 1 fall with injury or currently using an Ambulatory Assistive Device (Walker, Cane, Wheelchair, Crutches, etc.)? No PATIENT GENDER DATA: Assigned female at . status: : No status: NO. PATIENT RELEVANT IMPLANT DATA REVIEWED: Not Applicable PATIENT PRESENTS WITH AN IMPLANTABLE OR ATTACHED RESEARCH AIDE: No RADIOLOGY DEPARTMENT: General X-ray: Exam(s) Completed: Upper Extremity X-Ray(s): Shoulder, AP / TRUE AP / AXILLARY bilateral PERIPHERAL IV DATA: Not applicable SIGNED BY: RT Bishop(R) November 08, 2024 1:57 PM PROGRESS Observed: 11/08/2024 12:57 PM Status: COMPLETED Source: [facility] HNO ID: [id number] Author: MICHELLE CEBALLOS APRN.CNP Service: ? Author Type: Nurse Practitioner Type: Progress Notes Filed: 11/23/2024 14:57 Note Text: Chief Reason For Appointment No chief complaint on file. Chloe Guillory is a 74 year old female who presents for annual exam. Last office visit date: 05/10/2024 Accompanied By self only Have you had any critical events, hospital stays, ER visits, surgeries or procedures since your last visit here in our office: No Specialists/Other Healthcare Providers Seen: Patient Care Team: Michelle Ceballos APRN.CNP as PCP - General (Family Medicine) Myla Mcadams APRN.CNP as Long Chain Quiller Tender (Family Medicine) Michelle Ceballos APRN.CNP as Long Chain Quiller Tender (Family Medicine) Concerns today: Sputum- nasal drainage, too for 4-6 weeks HPI Both chills and sweating Active Problems ACTIVE PROBLEM LIST Chronic Pain of Both Shoulders - 07/29/2022 Stable Angina Pectoris (Hcc) - 06/26/2020 Class 3 Severe Obesity With Body Mass Index (Bmi) of 40.0 to 44.9 in Adult (Hcc) - 03/23/2019 Edema - 03/23/2019 Other Hyperlipidemia - 03/23/2019 Rls (Restless Legs Syndrome) - 02/15/2019 Insomnia - 03/19/2016 KAM (obstructive sleep apnea) CPAP intolerant - 09/26/2015 Moderate Persistent Asthma Without Complication - 07/11/2015 Comment: 07/07/15 Methacholine Inhalation Challenge: 35% drop FEV1 at 2.5 mg/mL. Type 2 Diabetes Mellitus With Stage 3a Chronic Kidney Disease, With Long-Term Current Use of Insulin ([facility]) - 04/04/2015 Comment: Dx: age 51. On metformin and victoza which she does not think works well for her lately She was started on jardiance which made her have suicidal ideation So she stopped the medication. Hypertension - 04/04/2015 Hypothyroidism - 04/04/2015 ROS: REVIEW OF SYSTEMS GENERAL: No weight gain, some malaise, hasn't checked temp fevers/chills HEENT: Negative for frequent or significant headaches, No changes in hearing or vision. NECK: Negative for lumps, goiter, pain and significant neck swelling RESPIRATORY: Productive cough, no hemoptysis, no wheezing, + dyspnea or shortness of breath CARDIOVASCULAR: Always chest pain- even when sitting and resting, no leg swelling, no orthopnea, maybe some palpitations GI: Some nausea, some vomiting with coughing, no diarrhea/constipation. No hematochezia/melena. No heartburn or reflux symptoms. : No history of dysuria, frequency or incontinence MUSCULOSKELETAL: Shoulder joint pain or swelling. SKIN: Negative for lesions, rash, and itching ENDOCRINE: Negative for cold or heat intolerance, polyuria, + polydipsia and goiter NEURO: No history of headaches, syncope, paralysis, seizures or tremors MOOD: Negative for depression, anxiety, or suicidal ideation. DM: Reports overall feeling well. Medication side effects: No. Home sugar checks: quit checcking, had steve running high Hypoglycemic spells: No. Watching diet: No. Unexpected weight loss: No. Polyuria, polydipsia: Yes. Vision Changes: No. Foot lesions or numbness or pain: Yes. PAST MEDICAL HISTORY Diagnosis Date Hypertension Hypothyroidism Insomnia 03/19/2016 Moderate persistent asthma without complication 07/11/2015 07/07/15 Methacholine Inhalation Challenge: 35% drop FEV1 at 2.5 mg/mL. Morbid obesity (HCC) 04/04/2015 Patient has morbid obesity. Multiple gallstones 03/20/2022 Resolved with lap choly 05/07/2022 KAM (obstructive sleep apnea) 09/26/2015 [facility] Other hyperlipidemia 03/23/2019 RLS (restless legs syndrome) 02/15/2019 Stable angina pectoris (HCC) 06/26/2020 Type 2 diabetes mellitus with stage 3 chronic kidney disease, with long-term current use of insulin (HCC) 04/04/2015 Dx: age 51. On metformin and victoza which she does not think works well for her lately She was started on jardiance which made her have suicidal ideation So she stopped the medication. PAST SURGICAL HISTORY Procedure Laterality Date APPENDECTOMY 1957 LAPAROSCOPY DIAGNOSTIC 2000 LEFT HEART CATH,PERCUTANEOUS 07/14/2020 wnl REMOVAL GALLBLADDER 05/07/2022 TONSILLECTOMY AND ADENOIDECTOMY HX 1957 TOTAL ABDOMINAL HYSTERECT W/WO RMVL TUBE OVARY 2000 Medication List Current Outpatient Medications Medication Sig Dispense Refill BIOTIN ORAL Take by mouth. levothyroxine (LEVOXYL) 50 mcg tablet Take 1 tablet by mouth once daily. Take on empty stomach. For Thyroid 90 tablet 3 insulin glargine (LANTUS U-100 INSULIN) 100 unit/mL injection Inject 20 Units subcutaneously daily at bedtime. 6 mL 11 olmesartan (BENICAR) 20 mg tablet Take 1 tablet by mouth once daily. 90 tablet 3 metFORMIN (GLUCOPHAGE) 500 mg tablet Take 2 tablets by mouth two times a day with meals. 120 tablet 5 traZODone (DESYREL) 150 mg tablet Take 1 tablet by mouth daily at bedtime. 90 tablet 3 fenofibrate nanocrystallized (TRICOR) 145 mg tablet Take 1 tablet by mouth once daily. 90 tablet 3 fluticasone-salmeterol (WIXELA INHUB) 250-50 mcg/dose inhaler Inhale 1 Puff as instructed two times a day. Rinse and gargle mouth with water after each use. 3 Each 3 dilTIAZem HCl 360 mg 24 hr capsule Take 1 capsule by mouth once daily. 90 capsule 3 omeprazole (PRILOSEC) 40 mg capsule Take 1 capsule by mouth once daily. 90 capsule 1 albuterol HFA (PROVENTIL HFA, VENTOLIN HFA) 90 mcg/actuation inhaler Inhale 2 Puffs as instructed four times a day as needed for wheezing/shortness of breath. FOR WHEEZING AND SHORTNESS OF BREATH. 54 g 3 MULTIVITAMIN ORAL Take by mouth once daily. Insulin Syringe-Needle U-100 (INSULIN SYRINGE) 1 mL 29 gauge x 1/2 1 Each once daily. 30 Each 11 atorvastatin (LIPITOR) 20 mg tablet Take 1 tablet by mouth once daily. 90 tablet 1 No current facility-administered medications for this visit. Weight Summary: Weight Change: Body mass index is 43.84 kg/m?. Last Wt 11/08/24 : 105.2 kg (232 lb) 05/10/24 : 97.1 kg (214 lb) 11/03/23 : 98 kg (216 lb) 08/12/23 : 100.7 kg (222 lb) 07/07/23 : 102.5 kg (226 lb) Physical Exam: General Appearance: well appearing, alert and oriented. Skin: no suspicious lesion, no rash, no open sores Head: normocephalic, no obvious masses, lesions, tenderness or abnormalities. Eyes: Anicteric sclera. Pupils are equally round and reactive to light. Ears: external ears normal, canals clear, can't visualize TM bill. Hearing to conversational voice intact. Nose/Sinuses: nares normal, septum midline, mucosa normal, no drainage or sinus tenderness. Oropharynx: lips, mucosa, and tongue normal, oropharynx cannot visualize Neck: trachea midline, thyroid without mass or nodularity, thyroid moves normally with swallow, no regional lymphadenopathy. Carotids normal upstroke, no bruit or thrill. Back:no pain to palpation of vertebrae, no percussion tenderness over spine. Lungs: Chest rise AND fall symmetrical, Lungs clear to auscultation. Bronchial egophony. No wheezing or rhonchi. No rales. Abdomen: normal bowel sounds, no mass, non-tender Heart: S1S2, no gallop, no rub, no murmur Lymph Nodes: no lymphadenopathy. Ext: no clubbing, cyanosis or edema. Mood: bright affect, speech clear, answers questions appropriately SCREENINGS Health Maintenance Listing DTaP,Tdap,Td Vaccine(1 - Tdap) RSV Vaccine(1 - Risk 60-74 years 1-dose series) Colorectal Cancer Screening Mammogram Screening Advance Directive Discussion HbA1C TEST RESULTS: Lab Studies: Date of lab studies: - glucose - potassium - Creatinine, gfr - LFTs Lipid: WBC, HANDH, Platelets: A1C: Vitamin D: Other: A/P: ASSESSMENT/PLAN: 1. Screening for colon cancer - ICD9: V76.51, ICD10: Z12.11 (primary diagnosis) Pt. Wantng to do cologuard - COLOGUARD 2. Type 2 diabetes mellitus with stage 3a chronic kidney disease, with long-term current use of insulin (HCC) - ICD9: 250.40, 585.3, V58.67, ICD10: E11.22, N18.31, Z79.4 - Control undetermined, due for labs - Continue current medications - eGFR: 45 Improving - Counseled on avoiding NSAIDs, adequate hydration - METFORMIN 500 MG TABLET - HEMOGLOBIN A1C - MAGNESIUM - BASIC METABOLIC PANEL - HEMOGLOBIN A1C - ALBUMIN/CREATININE RATIO, URINE - THYROID STIMULATING HORMONE - Would like GLP1 for weight loss- no thyroid cancer, no pancreas problems- was on Trulicity but then couldn't get it= Tirzepitide is safer with CKD stage III 3. Vitamin B12 deficiency - ICD9: 266.2, ICD10: E53.8 On replacement - VITAMIN B12 level - BASIC METABOLIC PANEL - COMPLETE BLOOD COUNT AND DIFFERENTIAL - COMPLETE BLOOD COUNT 4. Medicare annual wellness visit, subsequent - ICD9: V70.0, ICD10: Z00.00 - Counseled on healthy diet and regular exercise 5. Memory changes - ICD9: 780.93, ICD10: R41.3 Negative 6. Stage 3a chronic kidney disease (HCC) - ICD9: 585.3, ICD10: N18.31 - eGFR: 45 Improving - Counseled on avoiding NSAIDs, adequate hydration - COMPREHENSIVE METABOLIC PANEL 7. Hyperlipidemia, mixed - ICD9: 272.2, ICD10: E78.2 - Barriers to control: unable to tolerate statins - Counseled on healthy diet and regular exercise - LIPID PANEL BASIC 8. Acute recurrent frontal sinusitis - ICD9: 461.1, ICD10: J01.11 - Will begin treatment with Doxycycline - DOXYCYCLINE HYCLATE 100 MG TABLET 9. Acute bronchitis, unspecified organism - ICD9: 466.0, ICD10: J20.9 Acute - DOXYCYCLINE HYCLATE 100 MG TABLET - BENZONATATE 100 MG CAPSULE 10. Essential hypertension - ICD9: 401.9, ICD10: I10 - Controlled - Recommend home blood pressure monitoring, to bring results to next visit - Encouraged sodium restriction, DASH or Mediterranean diet - Recommend regular aerobic exercise - DILTIAZEM CD 360 MG CAPSULE,EXTENDED RELEASE 24 HR 11. Other hyperlipidemia - ICD9: 272.4, ICD10: E78.49 Stable - FENOFIBRATE NANOCRYSTALLIZED 145 MG TABLET 12. Moderate persistent asthma without complication - ICD9: 493.90, ICD10: J45.40 - Mild intermittent asthma stable - Avoidance of triggers recommended - FLUTICASONE 250 MCG-SALMETEROL 50 MCG/DOSE BLISTR POWDR FOR INHALATION 13. Gastroesophageal reflux disease, unspecified whether esophagitis present - ICD9: 530.81, ICD10: K21.9 - Stable - OMEPRAZOLE 40 MG CAPSULE,DELAYED RELEASE 14. Hypothyroidism, acquired - ICD9: 244.9, ICD10: E03.9 - Instructed patient on importance of taking on an empty stomach either first thing in the morning or at bedtime. - THYROID STIMULATING HORMONE 15. Bilateral shoulder pain, unspecified chronicity - ICD9: 719.41, ICD10: M25.511, M25.512 Check Xrays - XR SHOULDER LIMITED 2V AP/TRUE AP LEFT - XR SHOULDER GENERAL 3V OR MORE AP/TRUE AP/OTHER LEFT - XR SHOULDER GENERAL 3V OR MORE AP/TRUE AP/OTHER RIGHT - CONSULT PANEL TO ORTHOPAEDICS 16. Class 3 severe obesity due to excess calories with serious comorbidity and body mass index (BMI) of 40.0 to 44.9 in adult (HCC) - ICD9: 278.01, V85.41, ICD10: E66.813, E66.01, Z68.41 Weight increasing - Pharmacological intervention switching Trulicity to Mounjaro Discussed treatment plan and patient voices understanding. Patient's questions answered appropriately. Medications and potential side effects were discussed and patient voices understanding. Return to the office as scheduled or as needed for worsening/no improvement. Michelle Ceballos, HOSE INSPECTOR.SKY DIVER Follow Up Plans: 12 m Chloe Guillory is a 74 year old female here for a Medicare wellness visit. Medicare Health Risk Assessment General Health Fair Exercise: Minutes/Day 0 min Exercise: Days/Week 0 days Alcohol: Daily Use Never Alcohol: Drinks/Day Patient does not drink Alcohol: 6 or more drinks Never Feel off balance No Concerns: Teeth/Dentures No Concerns: Sexual function No Troubled by feelings Irritable Frequency: Eating healthy diet Nearly every day ADLs requiring help Housework Safety precautions in home/vehicle Yes Smoke, vape, chews tobacco No Difficulty hearing No Difficulty seeing No Current Providers Specialists: I have reviewed specialist-related care of the patient in the medical record. Medical/Family history review Reviewed and updated problem list, medical/surgical/family/social history, medications, and allergies. Opioid use review Opioid Medications (last 90 days) No data to display Anxiety/Depression screening PHQ-2 Score: 0 (Lower risk for depression) Recommendation: no further intervention at this time Cognitive screening Mini Cog Score: 5 Cognitive screening reviewed and No further action needed (score 3-5). Score 5 Functional Observation Was the patient's Timed Up AND Go test unsteady or >= 12 seconds? No Advance Care Planning No Advanced directives, has the info- hasn't filled them out Measurements BP 124/66 Pulse 73 Temp 36.2 ?C (97.2 ?F) (Right Tympanic) Wt 105.2 kg (232 lb) SpO2 96% BMI 43.84 kg/m? Vision Screening: Follows with optometry/ophthalmology Assessment/Plan Medicare annual wellness visit, subsequent (Z00.00) - Counseled on healthy diet and regular exercise - Fall avoidance information provided - Personalized prevention plan provided CNOV Observed: 11/08/2024 12:40 PM Status: COMPLETED Source: [facility] KAHLILCHLOE Wilma ([id number]) 1950 F Date Time Provider Department 11/08/24 12:40 PM MICHELLE CEBALLOS [facility] During your visit today, we recorded the following information about you: Temperature Pulse Blood pressure Weight 97.2 degrees 73/minute 124/66 105.2 kg Michelle Ceballos, HOSE INSPECTOR.SKY DIVER 11/23/2024 2:57 PM Addendum Chief Reason For Appointment No chief complaint on file. Chloedario Guillory is a 74 year old female who presents for annual exam. Last office visit date: 05/10/2024 Accompanied By self only Have you had any critical events, hospital stays, ER visits, surgeries or procedures since your last visit here in our office: No Specialists/Other Healthcare Providers Seen: Patient Care Team: Michelle Ceballos APRN.CNP as PCP - General (Family Medicine) Myla Macdams APRN.CNP as Long Chain Quiller Tender (Family Medicine) Michelle Ceballos APRN.CNP as Long Chain Quiller Tender (Family Medicine) Concerns today: Sputum- nasal drainage, too for 4-6 weeks HPI Both chills and sweating Active Problems ACTIVE PROBLEM LIST Chronic Pain of Both Shoulders - 07/29/2022 Stable Angina Pectoris ([facility]) - 06/26/2020 Class 3 Severe Obesity With Body Mass Index (Bmi) of 40.0 to 44.9 in Adult ([facility]) - 03/23/2019 Edema - 03/23/2019 Other Hyperlipidemia - 03/23/2019 Rls (Restless Legs Syndrome) - 02/15/2019 Insomnia - 03/19/2016 KAM (obstructive sleep apnea) CPAP intolerant - 09/26/2015 Moderate Persistent Asthma Without Complication - 07/11/2015 Comment: 07/07/15 Methacholine Inhalation Challenge: 35% drop FEV1 at 2.5 mg/mL. Type 2 Diabetes Mellitus With Stage 3a Chronic Kidney Disease, With Long-Term Current Use of Insulin ([facility]) - 04/04/2015 Comment: Dx: age 51. On metformin and victoza which she does not think works well for her lately She was started on jardiance which made her have suicidal ideation So she stopped the medication. Hypertension - 04/04/2015 Hypothyroidism - 04/04/2015 ROS: REVIEW OF SYSTEMS GENERAL: No weight gain, some malaise, hasn't checked temp fevers/chills HEENT: Negative for frequent or significant headaches, No changes in hearing or vision. NECK: Negative for lumps, goiter, pain and significant neck swelling RESPIRATORY: Productive cough, no hemoptysis, no wheezing, + dyspnea or shortness of breath CARDIOVASCULAR: Always chest pain- even when sitting and resting, no leg swelling, no orthopnea, maybe some palpitations GI: Some nausea, some vomiting with coughing, no diarrhea/constipation. No hematochezia/melena. No heartburn or reflux symptoms. : No history of dysuria, frequency or incontinence MUSCULOSKELETAL: Shoulder joint pain or swelling. SKIN: Negative for lesions, rash, and itching ENDOCRINE: Negative for cold or heat intolerance, polyuria, + polydipsia and goiter NEURO: No history of headaches, syncope, paralysis, seizures or tremors MOOD: Negative for depression, anxiety, or suicidal ideation. DM: Reports overall feeling well. Medication side effects: No. Home sugar checks: quit checcking, had steve running high Hypoglycemic spells: No. Watching diet: No. Unexpected weight loss: No. Polyuria, polydipsia: Yes. Vision Changes: No. Foot lesions or numbness or pain: Yes. PAST MEDICAL HISTORY Diagnosis Date Hypertension Hypothyroidism Insomnia 03/19/2016 Moderate persistent asthma without complication 07/11/2015 07/07/15 Methacholine Inhalation Challenge: 35% drop FEV1 at 2.5 mg/mL. Morbid obesity (HCC) 04/04/2015 Patient has morbid obesity. Multiple gallstones 03/20/2022 Resolved with lap choly 05/07/2022 KAM (obstructive sleep apnea) 09/26/2015 DME: [facility] Other hyperlipidemia 03/23/2019 RLS (restless legs syndrome) 02/15/2019 Stable angina pectoris (HCC) 06/26/2020 Type 2 diabetes mellitus with stage 3 chronic kidney disease, with long-term current use of insulin ([facility]) 04/04/2015 Dx: age 51. On metformin and victoza which she does not think works well for her lately She was started on jardiance which made her have suicidal ideation So she stopped the medication. PAST SURGICAL HISTORY Procedure Laterality Date APPENDECTOMY 1957 LAPAROSCOPY DIAGNOSTIC 2000 LEFT HEART CATH,PERCUTANEOUS 07/14/2020 wnl REMOVAL GALLBLADDER 05/07/2022 TONSILLECTOMY AND ADENOIDECTOMY HX 1957 TOTAL ABDOMINAL HYSTERECT W/WO RMVL TUBE OVARY 2000 Medication List Current Outpatient Medications Medication Sig Dispense Refill BIOTIN ORAL Take by mouth. levothyroxine (LEVOXYL) 50 mcg tablet Take 1 tablet by mouth once daily. Take on empty stomach. For Thyroid 90 tablet 3 insulin glargine (LANTUS U-100 INSULIN) 100 unit/mL injection Inject 20 Units subcutaneously daily at bedtime. 6 mL 11 olmesartan (BENICAR) 20 mg tablet Take 1 tablet by mouth once daily. 90 tablet 3 metFORMIN (GLUCOPHAGE) 500 mg tablet Take 2 tablets by mouth two times a day with meals. 120 tablet 5 traZODone (DESYREL) 150 mg tablet Take 1 tablet by mouth daily at bedtime. 90 tablet 3 fenofibrate nanocrystallized (TRICOR) 145 mg tablet Take 1 tablet by mouth once daily. 90 tablet 3 fluticasone-salmeterol (WIXELA INHUB) 250-50 mcg/dose inhaler Inhale 1 Puff as instructed two times a day. Rinse and gargle mouth with water after each use. 3 Each 3 dilTIAZem HCl 360 mg 24 hr capsule Take 1 capsule by mouth once daily. 90 capsule 3 omeprazole (PRILOSEC) 40 mg capsule Take 1 capsule by mouth once daily. 90 capsule 1 albuterol HFA (PROVENTIL HFA, VENTOLIN HFA) 90 mcg/actuation inhaler Inhale 2 Puffs as instructed four times a day as needed for wheezing/shortness of breath. FOR WHEEZING AND SHORTNESS OF BREATH. 54 g 3 MULTIVITAMIN ORAL Take by mouth once daily. Insulin Syringe-Needle U-100 (INSULIN SYRINGE) 1 mL 29 gauge x 1/2 1 Each once daily. 30 Each 11 atorvastatin (LIPITOR) 20 mg tablet Take 1 tablet by mouth once daily. 90 tablet 1 No current facility-administered medications for this visit. Weight Summary: Weight Change: Body mass index is 43.84 kg/m?. Last Wt 11/08/24 : 105.2 kg (232 lb) 05/10/24 : 97.1 kg (214 lb) 11/03/23 : 98 kg (216 lb) 08/12/23 : 100.7 kg (222 lb) 07/07/23 : 102.5 kg (226 lb) Physical Exam: General Appearance: well appearing, alert and oriented. Skin: no suspicious lesion, no rash, no open sores Head: normocephalic, no obvious masses, lesions, tenderness or abnormalities. Eyes: Anicteric sclera. Pupils are equally round and reactive to light. Ears: external ears normal, canals clear, can't visualize TM bill. Hearing to conversational voice intact. Nose/Sinuses: nares normal, septum midline, mucosa normal, no drainage or sinus tenderness. Oropharynx: lips, mucosa, and tongue normal, oropharynx cannot visualize Neck: trachea midline, thyroid without mass or nodularity, thyroid moves normally with swallow, no regional lymphadenopathy. Carotids normal upstroke, no bruit or thrill. Back:no pain to palpation of vertebrae, no percussion tenderness over spine. Lungs: Chest rise AND fall symmetrical, Lungs clear to auscultation. Bronchial egophony. No wheezing or rhonchi. No rales. Abdomen: normal bowel sounds, no mass, non-tender Heart: S1S2, no gallop, no rub, no murmur Lymph Nodes: no lymphadenopathy. Ext: no clubbing, cyanosis or edema. Mood: bright affect, speech clear, answers questions appropriately SCREENINGS Health Maintenance Listing DTaP,Tdap,Td Vaccine(1 - Tdap) RSV Vaccine(1 - Risk 60-74 years 1-dose series) Colorectal Cancer Screening Mammogram Screening Advance Directive Discussion HbA1C TEST RESULTS: Lab Studies: Date of lab studies: - glucose - potassium - Creatinine, gfr - LFTs Lipid: WBC, HANDH, Platelets: A1C: Vitamin D: Other: A/P: ASSESSMENT/PLAN: 1. Screening for colon cancer - ICD9: V76.51, ICD10: Z12.11 (primary diagnosis) Pt. Wantng to do cologuard - COLOGUARD 2. Type 2 diabetes mellitus with stage 3a chronic kidney disease, with long-term current use of insulin (HCC) - ICD9: 250.40, 585.3, V58.67, ICD10: E11.22, N18.31, Z79.4 - Control undetermined, due for labs - Continue current medications - eGFR: 45 Improving - Counseled on avoiding NSAIDs, adequate hydration - METFORMIN 500 MG TABLET - HEMOGLOBIN A1C - MAGNESIUM - BASIC METABOLIC PANEL - HEMOGLOBIN A1C - ALBUMIN/CREATININE RATIO, URINE - THYROID STIMULATING HORMONE - Would like GLP1 for weight loss- no thyroid cancer, no pancreas problems- was on Trulicity but then couldn't get it= Tirzepitide is safer with CKD stage III 3. Vitamin B12 deficiency - ICD9: 266.2, ICD10: E53.8 On replacement - VITAMIN B12 level - BASIC METABOLIC PANEL - COMPLETE BLOOD COUNT AND DIFFERENTIAL - COMPLETE BLOOD COUNT 4. Medicare annual wellness visit, subsequent - ICD9: V70.0, ICD10: Z00.00 - Counseled on healthy diet and regular exercise 5. Memory changes - ICD9: 780.93, ICD10: R41.3 Negative 6. Stage 3a chronic kidney disease (HCC) - ICD9: 585.3, ICD10: N18.31 - eGFR: 45 Improving - Counseled on avoiding NSAIDs, adequate hydration - COMPREHENSIVE METABOLIC PANEL 7. Hyperlipidemia, mixed - ICD9: 272.2, ICD10: E78.2 - Barriers to control: unable to tolerate statins - Counseled on healthy diet and regular exercise - LIPID PANEL BASIC 8. Acute recurrent frontal sinusitis - ICD9: 461.1, ICD10: J01.11 - Will begin treatment with Doxycycline - DOXYCYCLINE HYCLATE 100 MG TABLET 9. Acute bronchitis, unspecified organism - ICD9: 466.0, ICD10: J20.9 Acute - DOXYCYCLINE HYCLATE 100 MG TABLET - BENZONATATE 100 MG CAPSULE 10. Essential hypertension - ICD9: 401.9, ICD10: I10 - Controlled - Recommend home blood pressure monitoring, to bring results to next visit - Encouraged sodium restriction, DASH or Mediterranean diet - Recommend regular aerobic exercise - DILTIAZEM CD 360 MG CAPSULE,EXTENDED RELEASE 24 HR 11. Other hyperlipidemia - ICD9: 272.4, ICD10: E78.49 Stable - FENOFIBRATE NANOCRYSTALLIZED 145 MG TABLET 12. Moderate persistent asthma without complication - ICD9: 493.90, ICD10: J45.40 - Mild intermittent asthma stable - Avoidance of triggers recommended - FLUTICASONE 250 MCG-SALMETEROL 50 MCG/DOSE BLISTR POWDR FOR INHALATION 13. Gastroesophageal reflux disease, unspecified whether esophagitis present - ICD9: 530.81, ICD10: K21.9 - Stable - OMEPRAZOLE 40 MG CAPSULE,DELAYED RELEASE 14. Hypothyroidism, acquired - ICD9: 244.9, ICD10: E03.9 - Instructed patient on importance of taking on an empty stomach either first thing in the morning or at bedtime. - THYROID STIMULATING HORMONE 15. Bilateral shoulder pain, unspecified chronicity - ICD9: 719.41, ICD10: M25.511, M25.512 Check Xrays - XR SHOULDER LIMITED 2V AP/TRUE AP LEFT - XR SHOULDER GENERAL 3V OR MORE AP/TRUE AP/OTHER LEFT - XR SHOULDER GENERAL 3V OR MORE AP/TRUE AP/OTHER RIGHT - CONSULT PANEL TO ORTHOPAEDICS 16. Class 3 severe obesity due to excess calories with serious comorbidity and body mass index (BMI) of 40.0 to 44.9 in adult (HCC) - ICD9: 278.01, V85.41, ICD10: E66.813, E66.01, Z68.41 Weight increasing - Pharmacological intervention switching Trulicity to Mounjaro Discussed treatment plan and patient voices understanding. Patient's questions answered appropriately. Medications and potential side effects were discussed and patient voices understanding. Return to the office as scheduled or as needed for worsening/no improvement. Michelle Ceballos APRN.CNP Follow Up Plans: 12 m Chloe Guillory is a 74 year old female here for a Medicare wellness visit. Medicare Health Risk Assessment General Health Fair Exercise: Minutes/Day 0 min Exercise: Days/Week 0 days Alcohol: Daily Use Never Alcohol: Drinks/Day Patient does not drink Alcohol: 6 or more drinks Never Feel off balance No Concerns: Teeth/Dentures No Concerns: Sexual function No Troubled by feelings Irritable Frequency: Eating healthy diet Nearly every day ADLs requiring help Housework Safety precautions in home/vehicle Yes Smoke, vape, chews tobacco No Difficulty hearing No Difficulty seeing No Current Providers Specialists: I have reviewed specialist-related care of the patient in the medical record. Medical/Family history review Reviewed and updated problem list, medical/surgical/family/social history, medications, and allergies. Opioid use review Opioid Medications (last 90 days) No data to display Anxiety/Depression screening PHQ-2 Score: 0 (Lower risk for depression) Recommendation: no further intervention at this time Cognitive screening Mini Cog Score: 5 Cognitive screening reviewed and No further action needed (score 3-5). Score 5 Functional Observation Was the patient's Timed Up AND Go test unsteady or >= 12 seconds? No Advance Care Planning No Advanced directives, has the info- hasn't filled them out Measurements BP 124/66 Pulse 73 Temp 36.2 ?C (97.2 ?F) (Right Tympanic) Wt 105.2 kg (232 lb) SpO2 96% BMI 43.84 kg/m? Vision Screening: Follows with optometry/ophthalmology Assessment/Plan Medicare annual wellness visit, subsequent (Z00.00) - Counseled on healthy diet and regular exercise - Fall avoidance information provided - Personalized prevention plan provided Michelle Ceballos APRN.CNP 11/08/2024 1:24 PM Addendum 1) Please take B12 1,000 mcg daily 2) Take doxycycline 100 mg 2 x day for 10 days- take with food 3) Saline nasal spray frequently while on antibiotics 4) Benzonatate 100 mg 3 x day as needed for cough 5) Check labs Screening schedule The following prevention plan is recommended: DTaP,Tdap,Td Vaccine(1 - Tdap) due on 1969 RSV Vaccine(1 - Risk 60-74 years 1-dose series) Never done Colorectal Cancer Screening due on 02/28/2022 Mammogram Screening due on 07/08/2024 HbA1C due on 11/07/2024 WHAT YOU CAN DO TO PREVENT FALLS Many falls can be prevented. By making some changes, you can lower your chances of falling. Four things YOU can do to prevent falls for you* and your caregiver 1. Begin a regular exercise program Exercise is one of the most important ways to lower your chances of falling. It makes you stronger and helps you feel better. Exercises that improve balance and coordination (like Tanmay Chi) are the most helpful. Lack of exercise leads to weakness and increases your chances of falling. Ask your doctor or health care provider about the best type of exercise program for you. 2. Have your health care provider review your medicines Have your doctor or pharmacist review all the medicines you take, even [id number] medicines. As you get older, the way medicines work in your body can change. Some medicines, or combinations of medicines, can make you sleepy or dizzy and can cause you to fall. 3. Have your vision checked Have your eyes checked by an eye doctor at least once a year. You may be wearing the wrong glasses or have a condition like glaucoma or cataracts that limits your vision. Poor vision can increase your chances of falling. 4. Make your home safer About half of all falls happen at home. To make your home safer: Remove things you can trip over (like papers, books, clothes, and shoes) from stairs and places where you walk. Remove small throw rugs or use double-sided tape to keep the rugs from slipping. Keep items you use often in cabinets you can reach easily without using a step stool. Have grab bars put in next to your toilet and in the tub or shower. Use non-slip mats in the bathtub and on shower floors. Improve the lighting in your home. As you get older, you need brighter lights to see well. Hang light-weight curtains or shades to reduce glare. Have handrails and lights put in on all staircases. Wear shoes both inside and outside the house. Avoid going barefoot or wearing slippers. For more information, contact: Centers for Disease Control and Prevention www.cdc.gov/injury * This information may not apply if you have certain medical conditions. Michelle Ceballos APRN.SKY DIVER 11/08/2024 1:35 PM Signed Addended by: MICHELLE CEBALLOS on: 11/08/2024 01:35 PM Modules accepted: Orders Referring Provider: SELF [[id number]] Allergies As of Date: 11/08/2024 Noted Allergy Reaction ATORVASTATIN 11/08/2024 17 - Myalgia Comments: Craps in all muscles DUST 09/26/2015 3 - Cough JARDIANCE (EMPAGLIFLOZIN) 01/27/2018 14 - Other: See Comments Comments: Became suicidal MOLD 03/19/2016 12 - Shortness of Breath ENTEBLS-IRX-FAM REDUCTASE INHIBIT*04/04/2015 17 - Myalgia VICTOZA (LIRAGLUTIDE) 01/27/2018 14 - Other: See Comments Comments: Thinks she had thyroid issues from it. Date Reviewed: 11/08/2024 Reviewed by: Bel Wade MA - Fully Assessed Primary Visit Diagnosis:Screening for colon cancer [Z12.11] Other Visit Diagnoses:Type 2 diabetes mellitus with stage 3a chronic kidney disease, with long-term current use of insulin (HCC) [E11.22, N18.31, Z79.4] Vitamin B12 deficiency [E53.8] Medicare annual wellness visit, subsequent [Z00.00] Memory changes [R41.3] Stage 3a chronic kidney disease (HCC) [N18.31] Hyperlipidemia, mixed [E78.2] Acute recurrent frontal sinusitis [J01.11] Acute bronchitis, unspecified organism [J20.9] Essential hypertension [I10] Other hyperlipidemia [E78.49] Moderate persistent asthma without complication [J45.40] Gastroesophageal reflux disease, unspecified whether esophagitis present [K21.9] Hypothyroidism, acquired [E03.9] Bilateral shoulder pain, unspecified chronicity [M25.511, M25.512] Class 3 severe obesity due to excess calories with serious comorbidity and body mass index (BMI) of 40.0 to 44.9 in adult ([facility]) [E66.813, E66.01, Z68.41] Order(s):metFORMIN (GLUCOPHAGE) 500 mg tabletTake 2 tablets by mouth two times a day with meals.Disp: 120 tabletRfl: 11 COLOGUARD [SQCOLGRD] Order #: [id number] HEMOGLOBIN A1C [EACAS6L] Order #: [id number] FUTURE VITAMIN B12 [SQB12] Order #: [id number] FUTURE MAGNESIUM [SQMG1] Order #: [id number] FUTURE BASIC METABOLIC PANEL [SQBMP] Order #: [id number] FUTURE COMPLETE BLOOD COUNT AND DIFFERENTIAL [SQCBCDIF] Order #: [id number] FUTURE COMPLETE BLOOD COUNT [SQCBC] Order #: [id number] FUTURE HEMOGLOBIN A1C [PWXMH4H] Order #: [id number] FUTURE ALBUMIN/CREATININE RATIO, URINE [SQUACR] Order #: [id number] FUTURE THYROID STIMULATING HORMONE [SQTSH] Order #: [id number] FUTURE COMPREHENSIVE METABOLIC PANEL [SQCMP] Order #: [id number] FUTURE LIPID PANEL BASIC [SQLIPB] Order #: [id number] FUTURE [] doxycycline (VIBRA-TABS) 100 mg tabletTake 1 tablet by mouth two times a day for 10 days.Disp: 20 tabletRfl: 0 benzonatate (TESSALON PERLE) 100 mg capsuleTake 1 capsule by mouth three times a day as needed for up to 15 days.Disp: 45 capsuleRfl: 0 dilTIAZem HCl 360 mg 24 hr capsuleTake 1 capsule by mouth once daily.Disp: 90 capsuleRfl: 3 fenofibrate nanocrystallized (TRICOR) 145 mg tabletTake 1 tablet by mouth once daily.Disp: 90 tabletRfl: 3 fluticasone-salmeterol (WIXELA INHUB) 250-50 mcg/dose inhalerInhale 1 Puff as instructed two times a day. Rinse and gargle mouth with water after each use.Disp: 3 EachRfl: 3 omeprazole (PRILOSEC) 40 mg capsuleTake 1 capsule by mouth once daily.Disp: 90 capsuleRfl: 1 insulin glargine (LANTUS U-100 INSULIN) 100 unit/mL injectionInject 30 Units subcutaneously daily at bedtime.Disp: 27 mLRfl: 3 THYROID STIMULATING HORMONE [SQTSH] Order #: [id number] FUTURE XR SHOULDER LIMITED 2V AP/TRUE AP LEFT [4999799] Order #: [id number] FUTURE XR SHOULDER GENERAL 3V OR MORE AP/TRUE AP/OTHER LEFT [5168627] Order #: [id number] FUTURE XR SHOULDER GENERAL 3V OR MORE AP/TRUE AP/OTHER RIGHT [1869041] Order #: [id number] FUTURE CONSULT PANEL TO ORTHOPAEDICS [029075] Order #: [id number]: 1 FUTURE Prescriptions as of 11/23/2024 - tirzepatide (MOUNJARO) 2.5 mg/0.5 mL pen injector Inject 2.5 mg subcutaneously one time a week. - Cyanocobalamin 1,000 mcg TbER Take 1 tablet by mouth once daily. - levothyroxine (LEVOXYL) 50 mcg tablet Take 1 tablet by mouth once daily. Take on empty stomach. For Thyroid - magnesium oxide (MAG-OX) 400 mg (241.3 mg magnesium) tablet Take 1 tablet by mouth once daily. - BIOTIN ORAL Take by mouth. - metFORMIN (GLUCOPHAGE) 500 mg tablet Take 2 tablets by mouth two times a day with meals. - benzonatate (TESSALON PERLE) 100 mg capsule Take 1 capsule by mouth three times a day as needed for up to 15 days. - dilTIAZem HCl 360 mg 24 hr capsule Take 1 capsule by mouth once daily. - fenofibrate nanocrystallized (TRICOR) 145 mg tablet Take 1 tablet by mouth once daily. - fluticasone-salmeterol (WIXELA INHUB) 250-50 mcg/dose inhaler Inhale 1 Puff as instructed two times a day. Rinse and gargle mouth with water after each use. - omeprazole (PRILOSEC) 40 mg capsule Take 1 capsule by mouth once daily. - insulin glargine (LANTUS U-100 INSULIN) 100 unit/mL injection Inject 30 Units subcutaneously daily at bedtime. - Insulin Syringe-Needle U-100 (INSULIN SYRINGE) 1 mL 29 gauge x 1/2 1 Each once daily. - olmesartan (BENICAR) 20 mg tablet Take 1 tablet by mouth once daily. - traZODone (DESYREL) 150 mg tablet Take 1 tablet by mouth daily at bedtime. - albuterol HFA (PROVENTIL HFA, VENTOLIN HFA) 90 mcg/actuation inhaler Inhale 2 Puffs as instructed four times a day as needed for wheezing/shortness of breath. FOR WHEEZING AND SHORTNESS OF BREATH. - MULTIVITAMIN ORAL Take by mouth once daily. Meds Comments as of 06/07/2015: Patient has broken out recently feel like it is from her Trazadone Problem List As Of Date 11/08/2024 Noted Resolved Type 2 diabetes mellitus with stage 3a chronic *04/04/2015 Hypertension [I10] 04/04/2015 Hypothyroidism [E03.9] 04/04/2015 Morbid obesity (HCC) [E66.01] 04/04/2015 03/23/2019 Moderate persistent asthma without complication*07/11/2015 KAM (obstructive sleep apnea) CPAP intolerant [*09/26/2015 Insomnia [G47.00] 03/19/2016 RLS (restless legs syndrome) [G25.81] 02/15/2019 Kidney disease [N28.9] 03/23/2019 07/06/2019 Class 3 severe obesity with body mass index (BM*03/23/2019 Edema [R60.9] 03/23/2019 Other hyperlipidemia [E78.49] 03/23/2019 Stable angina pectoris (HCC) [I20.89] 06/26/2020 SOB (shortness of breath) [R06.02] 07/14/2020 05/01/2022 Multiple gallstones [K80.20] 03/20/2022 04/01/2023 Chronic pain of both shoulders [M25.511, G89.29*07/29/2022 Other instructions from your clinician: 1) Please take B12 1,000 mcg daily 2) Take doxycycline 100 mg 2 x day for 10 days- take with food 3) Saline nasal spray frequently while on antibiotics 4) Benzonatate 100 mg 3 x day as needed for cough 5) Check labs Screening schedule The following prevention plan is recommended: DTaP,Tdap,Td Vaccine(1 - Tdap) due on 1970 RSV Vaccine(1 - Risk 60-74 years 1-dose series) Never done Colorectal Cancer Screening due on 02/28/2022 Mammogram Screening due on 07/08/2024 HbA1C due on 11/07/2024 WHAT YOU CAN DO TO PREVENT FALLS Many falls can be prevented. By making some changes, you can lower your chances of falling. Four things YOU can do to prevent falls for you* and your caregiver 1. Begin a regular exercise program Exercise is one of the most important ways to lower your chances of falling. It makes you stronger and helps you feel better. Exercises that improve balance and coordination (like Tanmay Chi) are the most helpful. Lack of exercise leads to weakness and increases your chances of falling. Ask your doctor or health care provider about the best type of exercise program for you. 2. Have your health care provider review your medicines Have your doctor or pharmacist review all the medicines you take, even msyg-dpl-qondrmb medicines. As you get older, the way medicines work in your body can change. Some medicines, or combinations of medicines, can make you sleepy or dizzy and can cause you to fall. 3. Have your vision checked Have your eyes checked by an eye doctor at least once a year. You may be wearing the wrong glasses or have a condition like glaucoma or cataracts that limits your vision. Poor vision can increase your chances of falling. 4. Make your home safer About half of all falls happen at home. To make your home safer: Remove things you can trip over (like papers, books, clothes, and shoes) from stairs and places where you walk. Remove small throw rugs or use double-sided tape to keep the rugs from slipping. Keep items you use often in cabinets you can reach easily without using a step stool. Have grab bars put in next to your toilet and in the tub or shower. Use non-slip mats in the bathtub and on shower floors. Improve the lighting in your home. As you get older, you need brighter lights to see well. Hang light-weight curtains or shades to reduce glare. Have handrails and lights put in on all staircases. Wear shoes both inside and outside the house. Avoid going barefoot or wearing slippers. For more information, contact: Centers for Disease Control and Prevention www.cdc.gov/injury * This information may not apply if you have certain medical conditions. Prescriptions ordered this encounter Disp Refills Start End METFORMIN 500 MG TABLET 120 * 11 11/08/2024 11/08/2025 Route: ORAL Sig: Take 2 tablets by mouth two times a day with meals. DOXYCYCLINE HYCLATE 100 MG TABLET 20 t* 0 11/08/2024 11/18/2024 Route: ORAL Sig: Take 1 tablet by mouth two times a day for 10 days. BENZONATATE 100 MG CAPSULE 45 c* 0 11/08/2024 11/23/2024 Route: ORAL Sig: Take 1 capsule by mouth three times a day as needed for up to 15 days. DILTIAZEM CD 360 MG CAPSULE,EXTENDED* 90 c* 3 11/08/2024 Route: ORAL Sig: Take 1 capsule by mouth once daily. FENOFIBRATE NANOCRYSTALLIZED 145 MG * 90 t* 3 11/08/2024 Route: ORAL Sig: Take 1 tablet by mouth once daily. FLUTICASONE 250 MCG-SALMETEROL 50 MC* 3 Ea* 3 11/08/2024 Route: INHALATION Sig: Inhale 1 Puff as instructed two times a day. Rinse and gargle mouth with water after each use. OMEPRAZOLE 40 MG CAPSULE,DELAYED REL* 90 c* 1 11/08/2024 Route: ORAL Sig: Take 1 capsule by mouth once daily. INSULIN GLARGINE (U-100) 100 UNIT/ML* 27 mL 3 11/08/2024 11/08/2025 Cmt: Generic or brand: dispense product preferred by patient/insurance unless KYLEE flag is selected. Route: SUBCUTANEOUS Sig: Inject 30 Units subcutaneously daily at bedtime. Medications Discontinued During This Encounter Prescriptions - atorvastatin (LIPITOR) 20 mg tablet (Discontinued) Take 1 tablet by mouth once daily. - metFORMIN (GLUCOPHAGE) 500 mg tablet (Discontinued) Take 2 tablets by mouth two times a day with meals. - omeprazole (PRILOSEC) 40 mg capsule (Discontinued) Take 1 capsule by mouth once daily. - dilTIAZem HCl 360 mg 24 hr capsule (Discontinued) Take 1 capsule by mouth once daily. - fluticasone-salmeterol (WIXELA INHUB) 250-50 mcg/dose inhaler (Discontinued) Inhale 1 Puff as instructed two times a day. Rinse and gargle mouth with water after each use. - fenofibrate nanocrystallized (TRICOR) 145 mg tablet (Discontinued) Take 1 tablet by mouth once daily. - insulin glargine (LANTUS U-100 INSULIN) 100 unit/mL injection (Discontinued) Inject 20 Units subcutaneously daily at bedtime. Level of Service: PPPS, SUBSEQ VISIT [G0439] Disposition: Return in about 6 months (around 05/11/2025) for routine. Follow-up and Disposition History for Encounter Date Provider Department Center 11/08/2024 [id number] CEBALLOS*BETTYE [facility] Encounter Status:Closed by MICHELLE CEBALLOS on 11/08/24 CNPN Observed: 09/20/2024 12:00 AM Status: COMPLETED Source: [facility] Telephone (FAMPWS) CHLOE GUILLORY ([id number]) 1950 F Date Time Provider Department 09/20/24 CULLEN FRANCOIS During your visit today, we recorded the following information about you: Shana Hoskins 09/20/2024 9:08 AM Signed Chloe is calling Cullen Francois PA-C today with concern regarding insulin problem. The patient is using insulin vials, she has no needles/syringes to administer. Please send a prescription to: [facility] in [place] today. Please call the patient once this is completed. Patient has been identified by name and birthdate. Duration of symptoms: N/A Person calling: self Call patient at: on cell [phone] (home) Was an appointment scheduled: No Closing statement: Results or non-symptom based questions: Thank you for calling [facility], your call will be returned within the next business day. Scarlett Grimm MA 09/20/2024 10:30 AM Signed Please see pt message. Can you Rx the correct syringes and pens needed? Do not see in previous Rx's what was prescribed to this patient? Looked in history and do not see needles or syringes? Last OV: 05/10/24 with JUANITO. Next appt; 11/08/24 with SUNNY Puckett William J, MD 09/20/2024 12:31 PM Signed sent Sanjuana Echeverria RN 09/20/2024 1:41 PM Signed Called and left a voicemail for the Patient to call back and ask for a nurse to receive the providers message. JERI Gavin Sherrie, RN 09/20/2024 3:30 PM Signed Patient returned call and given provider's message below and patient verbalized understanding. Michael Reina RN Allergies As of Date: 09/20/2024 Noted Allergy Reaction DUST 09/26/2015 3 - Cough JARDIANCE (EMPAGLIFLOZIN) 01/27/2018 14 - Other: See Comments Comments: Became suicidal MOLD 03/19/2016 12 - Shortness of Breath VICTOZA (LIRAGLUTIDE) 01/27/2018 14 - Other: See Comments Comments: Thinks she had thyroid issues from it. Date Reviewed: 05/10/2024 Reviewed by: Michelle Ceballos APRN.SKY DIVER - Fully Assessed Reason for Visit: Medication Problem [65] Cmt: Using insulin vials, she has no needles/syringes to administer Primary Visit Diagnosis:Type 2 diabetes mellitus with stage 3a chronic kidney disease, with long-term current use of insulin ([facility]) [E11.22, N18.31, Z79.4] Order(s):Insulin Syringe-Needle U-100 (INSULIN SYRINGE) 1 mL 29 gauge x 1/ Each once daily.Disp: 30 EachRfl: 11 Prescriptions as of 09/20/2024 - levothyroxine (LEVOXYL) 50 mcg tablet Take 1 tablet by mouth once daily. Take on empty stomach. For Thyroid - Insulin Syringe-Needle U-100 (INSULIN SYRINGE) 1 mL 29 gauge x 1/2 1 Each once daily. - insulin glargine (LANTUS U-100 INSULIN) 100 unit/mL injection Inject 20 Units subcutaneously daily at bedtime. - atorvastatin (LIPITOR) 20 mg tablet Take 1 tablet by mouth once daily. - olmesartan (BENICAR) 20 mg tablet Take 1 tablet by mouth once daily. - metFORMIN (GLUCOPHAGE) 500 mg tablet Take 2 tablets by mouth two times a day with meals. - traZODone (DESYREL) 150 mg tablet Take 1 tablet by mouth daily at bedtime. - fenofibrate nanocrystallized (TRICOR) 145 mg tablet Take 1 tablet by mouth once daily. - fluticasone-salmeterol (WIXELA INHUB) 250-50 mcg/dose inhaler Inhale 1 Puff as instructed two times a day. Rinse and gargle mouth with water after each use. - dilTIAZem HCl 360 mg 24 hr capsule Take 1 capsule by mouth once daily. - omeprazole (PRILOSEC) 40 mg capsule Take 1 capsule by mouth once daily. - albuterol HFA (PROVENTIL HFA, VENTOLIN HFA) 90 mcg/actuation inhaler Inhale 2 Puffs as instructed four times a day as needed for wheezing/shortness of breath. FOR WHEEZING AND SHORTNESS OF BREATH. - MULTIVITAMIN ORAL Take by mouth once daily. Meds Comments as of 06/07/2015: Patient has broken out recently feel like it is from her Trazadone Problem List As Of Date 09/20/2024 Noted Resolved Type 2 diabetes mellitus with stage 3a chronic *04/04/2015 Hypertension [I10] 04/04/2015 Hypothyroidism [E03.9] 04/04/2015 Morbid obesity (HCC) [E66.01] 04/04/2015 03/23/2019 Moderate persistent asthma without complication*07/11/2015 KAM (obstructive sleep apnea) CPAP intolerant [*09/26/2015 Insomnia [G47.00] 03/19/2016 RLS (restless legs syndrome) [G25.81] 02/15/2019 Kidney disease [N28.9] 03/23/2019 07/06/2019 Class 3 severe obesity with body mass index (BM*03/23/2019 Edema [R60.9] 03/23/2019 Other hyperlipidemia [E78.49] 03/23/2019 Stable angina pectoris (HCC) [I20.89] 06/26/2020 SOB (shortness of breath) [R06.02] 07/14/2020 05/01/2022 Multiple gallstones [K80.20] 03/20/2022 04/01/2023 Chronic pain of both shoulders [M25.511, G89.29*07/29/2022 Prescriptions ordered this encounter Disp Refills Start End INSULIN SYRINGE U-100 WITH NEEDLE 1 * 30 E* 11 09/20/2024 09/20/2025 Route: [facility] Each once daily. Encounter Status:Closed by MAYTE REINA on 09/20/24 CHERI Observed: 08/11/2024 12:00 AM Status: COMPLETED Source: [facility] Patient Outreach (INTMMN) CHLOE GUILLORY ([id number]) 1950 F Date Time Provider Department 08/11/24 CULLEN FRANCOIS INTMMN During your visit today, we recorded the following information about you: Allergies As of Date: 08/11/2024 Noted Allergy Reaction DUST 09/26/2015 3 - Cough JARDIANCE (EMPAGLIFLOZIN) 01/27/2018 14 - Other: See Comments Comments: Became suicidal MOLD 03/19/2016 12 - Shortness of Breath VICTOZA (LIRAGLUTIDE) 01/27/2018 14 - Other: See Comments Comments: Thinks she had thyroid issues from it. Date Reviewed: 05/10/2024 Reviewed by: Michelle Ceballos APRN.SKY DIVER - Fully Assessed Visit Diagnosis:Encounter for screening mammogram for breast cancer [Z12.31] Order(s):[facility] [[id number]] Order #: [id number] FUTURE Prescriptions as of 08/16/2024 - atorvastatin (LIPITOR) 20 mg tablet Take 1 tablet by mouth once daily. - insulin glargine (LANTUS U-100 INSULIN) 100 unit/mL injection Inject 20 Units subcutaneously daily at bedtime. - olmesartan (BENICAR) 20 mg tablet Take 1 tablet by mouth once daily. - metFORMIN (GLUCOPHAGE) 500 mg tablet Take 2 tablets by mouth two times a day with meals. - traZODone (DESYREL) 150 mg tablet Take 1 tablet by mouth daily at bedtime. - fenofibrate nanocrystallized (TRICOR) 145 mg tablet Take 1 tablet by mouth once daily. - fluticasone-salmeterol (WIXELA INHUB) 250-50 mcg/dose inhaler Inhale 1 Puff as instructed two times a day. Rinse and gargle mouth with water after each use. - dilTIAZem HCl 360 mg 24 hr capsule Take 1 capsule by mouth once daily. - omeprazole (PRILOSEC) 40 mg capsule Take 1 capsule by mouth once daily. - levothyroxine (LEVOXYL) 50 mcg tablet Take 1 tablet by mouth once daily. Take on empty stomach. For Thyroid - albuterol HFA (PROVENTIL HFA, VENTOLIN HFA) 90 mcg/actuation inhaler Inhale 2 Puffs as instructed four times a day as needed for wheezing/shortness of breath. FOR WHEEZING AND SHORTNESS OF BREATH. - MULTIVITAMIN ORAL Take by mouth once daily. Meds Comments as of 06/07/2015: Patient has broken out recently feel like it is from her Trazadone Problem List As Of Date 08/11/2024 Noted Resolved Type 2 diabetes mellitus with stage 3a chronic *04/04/2015 Hypertension [I10] 04/04/2015 Hypothyroidism [E03.9] 04/04/2015 Morbid obesity (HCC) [E66.01] 04/04/2015 03/23/2019 Moderate persistent asthma without complication*07/11/2015 KAM (obstructive sleep apnea) CPAP intolerant [*09/26/2015 Insomnia [G47.00] 03/19/2016 RLS (restless legs syndrome) [G25.81] 02/15/2019 Kidney disease [N28.9] 03/23/2019 07/06/2019 Class 3 severe obesity with body mass index (BM*03/23/2019 Edema [R60.9] 03/23/2019 Other hyperlipidemia [E78.49] 03/23/2019 Stable angina pectoris (HCC) [I20.89] 06/26/2020 SOB (shortness of breath) [R06.02] 07/14/2020 05/01/2022 Multiple gallstones [K80.20] 03/20/2022 04/01/2023 Chronic pain of both shoulders [M25.511, G89.29*07/29/2022 Encounter Status:Closed by AMILCAR ANNE on 08/16/24 PROGRESS Observed: 08/10/2024 10:58 AM Status: COMPLETED Source: [facility] HNO ID: [id number] Author: MELIZA SUH MA Service: ? Author Type: Chicken Boner Type: Progress Notes Filed: 08/10/2024 11:00 Note Text: POPULATION HEALTH NAVIGATION OUTREACH Action/FYI Returning patients call as patient left a detail message on my voicemail in regards to initial outreach Arpan [facility] Discuss/Due for: 2024 Medicare Wellness, Colorectal Cancer Screening, Mammogram, MyChart Activation HCC Score : .[id number] Outcome: 1st attempt - Left Message Reason for Outreach Returned Call/MyChart Patient Contacted: Unable or unnecessary to reach patient: Left message Navigation Signature: Meliza Suh MA August 10, 2024 10:58 AM PROGRESS Observed: 08/09/2024 9:11 AM Status: COMPLETED Source: [facility] HNO ID: [id number] Author: MELIZA SUH MA Service: ? Author Type: Chicken Boner Type: Progress Notes Filed: 08/09/2024 09:22 Note Text: POPULATION HEALTH NAVIGATION OUTREACH Action/FYI [employer] Discuss/Due for: 2024 Medicare Wellness, Colorectal Cancer Screening, Mammogram, MyChart Activation HCC Score : .36259 Outcome: 1st attempt - Left Message 2nd attempt - No MyChart Flipped existing appointment on 11/08/2024 with 2024 Medicare Wellness/HCC - [employer] AWV Protocol Reason for Outreach Care Gap/HCC or Scheduling Wellness Visits Care Gaps due: Medicare Annual Wellness Visit Breast Cancer Screening Colorectal Cancer Screening Patient Contacted: Unable or unnecessary to reach patient: Left message HCC related Flipped existing appointment Navigation Signature: Meliza Suh MA August 09, 2024 9:11 AM CNPTOUTREACH Observed: 08/09/2024 12:00 AM Status: COMPLETED Source: [facility] Patient Outreach (NETNAV) KAHLILCHLOE ([id number]) 1950 F Date Time Provider Department 08/09/24 MELIZA SUH During your visit today, we recorded the following information about you: Meliza Suh MA 08/09/2024 9:22 AM Signed POPULATION HEALTH NAVIGATION OUTREACH Action/FYI Arpan [place] Discuss/Due for: 2024 Medicare Wellness, Colorectal Cancer Screening, Mammogram, MyChart Activation HCC Score : .83031 Outcome: 1st attempt - Left Message 2nd attempt - No MyChart Flipped existing appointment on 11/08/2024 with 2024 Medicare Wellness/HCC - [employer] AWV Protocol Reason for Outreach Care Gap/HCC or Scheduling Wellness Visits Care Gaps due: Medicare Annual Wellness Visit Breast Cancer Screening Colorectal Cancer Screening Patient Contacted: Unable or unnecessary to reach patient: Left message HCC related Flipped existing appointment Navigation Signature: Meliza Suh MA August 09, 2024 9:11 AM Meliza Suh MA 08/10/2024 11:00 AM Signed POPULATION HEALTH NAVIGATION OUTREACH Action/FYI Returning patients call as patient left a detail message on my voicemail in regards to initial outreach Ar[facility] [place] Discuss/Due for: 2024 Medicare Wellness, Colorectal Cancer Screening, Mammogram, MyChart Activation HCC Score : .02538 Outcome: 1st attempt - Left Message Reason for Outreach Returned Call/MyChart Patient Contacted: Unable or unnecessary to reach patient: Left message Navigation Signature: Meliza Suh MA August 10, 2024 10:58 AM Allergies As of Date: 08/09/2024 Noted Allergy Reaction DUST 09/26/2015 3 - Cough JARDIANCE (EMPAGLIFLOZIN) 01/27/2018 14 - Other: See Comments Comments: Became suicidal MOLD 03/19/2016 12 - Shortness of Breath VICTOZA (LIRAGLUTIDE) 01/27/2018 14 - Other: See Comments Comments: Thinks she had thyroid issues from it. Date Reviewed: 05/10/2024 Reviewed by: Michelle Ceballos APRN.SKY DIVER - Fully Assessed Reason for Visit: Population Health Navigation Outreach [3910] Cmt: Arpan [place] Prescriptions as of 08/17/2024 - atorvastatin (LIPITOR) 20 mg tablet Take 1 tablet by mouth once daily. - insulin glargine (LANTUS U-100 INSULIN) 100 unit/mL injection Inject 20 Units subcutaneously daily at bedtime. - olmesartan (BENICAR) 20 mg tablet Take 1 tablet by mouth once daily. - metFORMIN (GLUCOPHAGE) 500 mg tablet Take 2 tablets by mouth two times a day with meals. - traZODone (DESYREL) 150 mg tablet Take 1 tablet by mouth daily at bedtime. - fenofibrate nanocrystallized (TRICOR) 145 mg tablet Take 1 tablet by mouth once daily. - fluticasone-salmeterol (WIXELA INHUB) 250-50 mcg/dose inhaler Inhale 1 Puff as instructed two times a day. Rinse and gargle mouth with water after each use. - dilTIAZem HCl 360 mg 24 hr capsule Take 1 capsule by mouth once daily. - omeprazole (PRILOSEC) 40 mg capsule Take 1 capsule by mouth once daily. - levothyroxine (LEVOXYL) 50 mcg tablet Take 1 tablet by mouth once daily. Take on empty stomach. For Thyroid - albuterol HFA (PROVENTIL HFA, VENTOLIN HFA) 90 mcg/actuation inhaler Inhale 2 Puffs as instructed four times a day as needed for wheezing/shortness of breath. FOR WHEEZING AND SHORTNESS OF BREATH. - MULTIVITAMIN ORAL Take by mouth once daily. Meds Comments as of 06/07/2015: Patient has broken out recently feel like it is from her Trazadone Problem List As Of Date 08/09/2024 Noted Resolved Type 2 diabetes mellitus with stage 3a chronic *04/04/2015 Hypertension [I10] 04/04/2015 Hypothyroidism [E03.9] 04/04/2015 Morbid obesity (HCC) [E66.01] 04/04/2015 03/23/2019 Moderate persistent asthma without complication*07/11/2015 KAM (obstructive sleep apnea) CPAP intolerant [*09/26/2015 Insomnia [G47.00] 03/19/2016 RLS (restless legs syndrome) [G25.81] 02/15/2019 Kidney disease [N28.9] 03/23/2019 07/06/2019 Class 3 severe obesity with body mass index (BM*03/23/2019 Edema [R60.9] 03/23/2019 Other hyperlipidemia [E78.49] 03/23/2019 Stable angina pectoris (HCC) [I20.89] 06/26/2020 SOB (shortness of breath) [R06.02] 07/14/2020 05/01/2022 Multiple gallstones [K80.20] 03/20/2022 04/01/2023 Chronic pain of both shoulders [M25.511, G89.29*07/29/2022 Encounter Status:Closed by MELIZA SUH on 08/09/24 ALLERGIES DATE TYPE / CODE NAME / CODE REACTION SEVERITY SOURCE 11/08/2024 DRUG INGREDI/03950 1003(SNOMED CT) ATORVASTATIN Myalgia [facility] 01/27/2018 DRUG INGREDI/11332 1003(SNOMED CT) EMPAGLIFLOZIN OTHER: SEE C [facility] 01/27/2018 DRUG INGREDI/10997 1003(SNOMED CT) LIRAGLUTIDE OTHER: SEE [facility] 03/19/2016 DRUG INGREDI/51907 1003(SNOMED CT) MOLD SHORTNESS OF [facility] 09/26/2015 Environ/16352 4006(SNOMED CT) DUST COUGH [facility] 04/04/2015 Drug Class/9072739 03(SNOMED CT) [id number] REDUCTASE INHIBITORS Myalgia [facility] ENCOUNTERS ADMIT/DISCHARGE ACCOUNT NUMBER ADMITTING ENCOUNTER CLASS LOC ATION SOURCE 05/18/2025/ 5 [id number] Ambulatory [facility] HospitalBuild ing:WOFM [facility] 05/10/2025 [id number] Ambulatory [facility] HospitalBuild ing:WORG [facility] 05/10/2025/ 5 [id number] Ambulatory [facility] HospitalBuild ing:WOFM [facility] 04/29/2025/ 5 [id number] Ambulatory [facility] HospitalBuild ing:WOL2 [facility] 04/18/2025/ 5 [id number] Ambulatory [facility] HospitalBuild ing:WOOR [facility] 04/12/2025/ 5 [id number] Ambulatory [facility] HospitalBuild ing:WOCA [facility] 04/01/2025/ 5 [id number] Ambulatory [facility] HospitalBuild ing:MMCA [facility] 03/14/2025/ 5 [id number] Ambulatory [facility] HospitalBuild ing:WOLB [facility] 02/11/2025/ 5 [id number] Ambulatory [facility] HospitalBuild ing:WOLB [facility] 02/11/2025/ 5 [id number] Ambulatory [facility] HospitalBuild ing:WOFM [facility] 02/07/2025/ 5 [id number] Ambulatory [facility] HospitalBuild ing:WOOSWALD [facility] 11/09/2024/ 5 [id number] Ambulatory [facility] HospitalBuild ing:WOLB [facility] 11/08/2024/ 5 [id number] [facility]/08/2024/ 5 [id number] [facility] PAYERS ENCOUNTER GUARANTOR PAYER SUBSCRIBER SOURCE 05/18/2025 Primary Insurance:AET MEDICARE HMOPolicy Number: [id number] Date:7902-85-96Xgdt Name:Ginette SOLORIOGEORGIEOB: [id number] [address] [address] [facility] 05/10/2025 Primary Insurance:AETNA MEDICARE HMOPolicy Number: [id number] Date:0236-43-83Pmjn Name:Ginette SOLORIOGEORGIEOB: [id number] [address] [address] [facility] 05/10/2025 Primary Insurance:AETNA MEDICARE HMOPolicy Number: [id number] Date:5100-56-66Abrq Name:Ginette SOLORIOADDOB: [id number], [place] [address] [facility] 04/29/2025 Primary Insurance:AETNA MEDICARE HMOPolicy Number: [id number] Date:7665-88-91Jlpp Name:Ginette SOLORIOGEORGIEOB: [id number], [place] [address] [facility] 04/18/2025 Primary Insurance:AETNA MEDICARE HMOPolicy Number: [id number] Date:8683-93-64Mejj Name:Ginette Dillon RAEGANOB: [id number], [place] [address] [facility] 04/12/2025 Primary Insurance:AETNA MEDICARE HMOPolicy Number: [id number] Date:8046-21-84Bogi Name:Ginette Dillon RAEGANOB: [id number], [place] [address] [facility] 04/01/2025 Primary Insurance:AETNA MEDICARE HMOPolicy Number: [id number] Date:8600-99-98Jvow Name:Ginette SOLORIOGEORGIEOB: [id number], [place] [address] [facility] 03/14/2025 Primary Insurance:AETNA MEDICARE HMOPolicy Number: [id number] Date:6020-95-70Chdn Name:Ginette Dillon LYNDSEYADDOB: [id number], [place] [address] [facility] 02/11/2025 Primary Insurance:AETNA MEDICARE HMOPolicy Number: [id number] Date:2445-53-17Vhzl Name:Ginette Dillon LYNDSEYADDOB: [id number] [place] [address] [facility] 02/11/2025 Primary Insurance:AETNA MEDICARE HMOPolicy Number: [id number] Date:7797-44-37Eyjq Name:Ginette Dillon RAEGANOB: [id number] [place] [address] [facility] 02/07/2025 Primary Insurance:AETNA MEDICARE HMOPolicy Number: [id number] Date:6920-09-57Xtcn Name:Ginette Dillon RAEGANOB: [id number], [place] [address] [facility] 11/09/2024 Primary Insurance:AETNA MEDICARE HMOPolicy Number: [id number] Date:9382-26-72Lthp Name:Ginette Dillon RAEGANOB: [id number] [place] [address] [facility] 11/08/2024 Primary Insurance:AETNA MEDICARE HMOPolicy Number: [id number] Date:1603-56-35Oepx Name:Ginette Dillon RAEGANOB: [id number] [place] [address] [facility] 11/08/2024 Primary Insurance:AETNA MEDICARE HMOPolicy Number: [id number] Date:8725-62-44Uaxi Name:Ginette Dillon RAEGANOB: [id number], [place] [address] [facility]
--- OUTSIDE RECORDS SUMMARY | 2025-05-18 13:35 | XMS RPT_ITS ---
Author Name Auto Generated Organization [facility] Care Team Providers Care Finance Assistant Name Role Phone SUPPAN, MICHELLE A Primary [...] Primary Care Unavailable CHICHO BRIAN Referring Unavailable AINSLEY, QARAB KADEEM Attending Unavailable SUPPAN, MICHELLE A [...] DATE TYPE CONDITION / CODE ATTENDING STATUS [facility] 05/18/2025 Active Chest heaviness / R07.89(ICD-10) MYLA MCADAMS Active [facility] 05/18/2025 Active Nausea / R11.0(ICD-10) MYLA MCADAMS Active [facility] 05/18/2025 Active Screening for co lee ann cancer / Z12.11(ICD-10) MYLA MCADAMS Active [facility] 05/18/2025 Active Gastritis withou t bleeding, unspecified chronicity, unspecified gastritis type / K29.70(ICD-10) MYLA MCADAMS Active [facility] 05/18/2025 Active Fibromyalgia / M79.7(ICD-10) DONTRELL [facility] Active [facility] 05/18/2025 Active Heartburn / R12(ICD-10) DONTRELL MYLA Active [facility] 07/29/2022 Active Chronic pain of both shoulders / M25.511(ICD-10) AMILCAR CEBALLOSCAROL Calderón Active [facility] 07/29/2022 Active Chronic pain of both shoulders / G89.29(ICD-10) MICHELLE CEBALLOS Active [facility] 07/29/2022 Active Chronic pain of both shoulders / M25.512(ICD-10) MICHELLE CEBALLOS Active [facility] 08/27/2021 Active Moderate persist ent asthma without complication (HCC) / J45.40(ICD-10) LUIS MICHELLE A Active [facility] 03/19/2016 Active Insomnia, unspec ified type / G47.00(ICD-10) LUIS MICHELLE A Active [facility] 05/10/[address] reening mammogram for breast cancer / Z12.31(ICD-10) LUIS MICHELLE A Active [facility] 05/10/2025 Active Screening for depression / Z13.31(ICD-10) MICHELLE CEBALLOS Active [facility] 05/10/[address] reening examination for other mental health and behavioral disorders / Z13.39(ICD-10) LUIS MICHELLE A Active [facility] 05/10/2025 Active Acute sinusitis, recurrence not specified, unspecified location / J01.90(ICD-10) MICHELLE CEBALLOS Active [facility] 04/29/2025 Active Hyperlipidemia, mixed / E78.2(ICD-10) NA Active [facility] 04/18/2025 Active Primary osteoart hritis of left shoulder / M19.012(ICD-10) COLEEN BYRNEA Active [facility] 04/18/2025 Active Lumbar radicular pain / M54.16(ICD-10) KRISTIN BYRNE Active [facility] 05/01/2022 Active KAM (obstructive sleep apnea) / G47.33(ICD-10) AINSLEYALVINNAIN Active [facility] 03/07/2022 Active Class 3 severe o besity with body mass index (BMI) of 40.0 to 44.9 in adult ([facility]) / E66.813(ICD-10) AINSLEYALVIN KADEEM Active [facility] 03/07/2022 Active Class 3 severe o besity with body mass index (BMI) of 40.0 to 44.9 in adult ([facility]) / Z68.41(ICD-10) AINSLEYMARICHUYRodney KADEEM Active [facility] 04/01/2025 Active Coronary artery disease of [place] heart with stable angina pectoris, unspecified vessel or lesion type / I25.118(ICD-10) AINSLEYMARICHUYB KADEEM Active [facility] 04/01/2025 Active Pulmonary hypert ension (HCC) / I27.20(ICD-10) AINSLEYABBYRAB KADEEM Active [facility] 04/01/2025 Active Dyslipidemia / E78.5(ICD-10) AINSLEYABBYRAB KADEEM Active [facility] 04/01/2025 Active Type 2 diabetes mellitus without ophthalmic manifestations (HCC) / E11.9(ICD-10) AINSLEYABBYRAB KADEEM Active [facility] 04/01/2025 Active Precordial pain / R07.2(ICD-10) AINSLEYABBYRAB KADEEM Active [facility] 03/14/2025 Active Hyperkalemia / E87.5(ICD-10) NA Active [facility] 03/23/2019 Active Other hyperlipid emia / E78.49(ICD-10) MICHELLE CEBALLOS Active [facility] 04/04/2015 Active Hypothyroidism, unspecified type / E03.9(ICD-10) MICHELLE CEBALLOS Active [facility] 04/04/2015 Active Primary hyperten nicole / I10(ICD-10) MICHELLE CEBALLOS Stephane Active [facility] 02/11/2025 Active Hypomagnesemia / E83.42(ICD-10) AMILCAR CEBALLOSCAROL Calderón Active [facility] 02/07/2025 Active Type 2 diabetes mellitus with hyperglycemia, with long-term current use of insulin (HCC) / E11.65(ICD-10) KRISTIN BYRNE Active [facility] 02/07/2025 Active Type 2 diabetes mellitus with hyperglycemia, with long-term current use of insulin (HCC) / Z79.4(ICD-10) KRISTIN BYRNE Active [facility] 02/07/2025 Active Stage 3a chronic kidney disease (HCC) / N18.31(ICD-10) KRISTIN BYRNE Active [facility] 03/07/2022 Active Type 2 diabetes mellitus with stage 3a chronic kidney disease, with long-term current use of insulin (HCC) / E11.22(ICD-10) NA Active [facility] 03/07/2022 Active Type 2 diabetes mellitus with stage 3a chronic kidney disease, with long-term current use of insulin (HCC) / N18.31(ICD-10) NA Active [facility] 03/07/2022 Active Type 2 diabetes mellitus with stage 3a chronic kidney disease, with long-term current use of insulin (HCC) / Z79.4(ICD-10) NA [facility] 11/09/2024 Active Vitamin B12 defi ciency / E53.8(ICD-10) [facility] 11/09/2024 Active Hypothyroidism, acquired / E03.9(ICD-10) NA [facility] 11/08/2024 Active Bilateral should er pain, unspecified chronicity / M25.511(ICD-10) [facility] 11/08/2024 Active Bilateral should er pain, unspecified chronicity / M25.512(ICD-10) [facility] PROCEDURES No Procedure Records Found RESULTS PROGRESS Observed: 05/18/2025 2:45 PM Status: COMPLETED Source: [facility] HNO ID: [id number] Author: MYLA MCADAMS APRN.ASSISTANT FOOD SERVICE MANAGER Service: ? Author Type: Nurse Practitioner Type: [...] Chronic chest pain attributed to fibromyalgia by building maintenance engineer 1-2 months ago. - Pain worsened significantly [...] 05/07/2022 KAM (obstructive sleep apnea) 09/26/2015 [facility] Other hyperlipidemia 03/23/2019 RLS (restless legs syndrome) [...] 2000 ALLERGIES Atorvastatin, Dust, Jardiance [Empagliflozin], Mold, Ocihgbi-Gwj-Hjk Reductase Inhibitors, and Victoza [Liraglutide] MEDICATIONS Current [...] as needed for worsening/no improvement. Myla Mcadams APRN.ASSISTANT FOOD SERVICE MANAGER Recording using [employer] software for draft documentation of the visit was discussed with the patient/authorized accounts payable representative; all questions welcomed and answered. Patient/authorized accounts payable representative agreed to proceed [1] Social History Tobacco Use Smoking status: Never Smokeless tobacco: Never Tobacco comments: NO smoking in childhood home. Spouse smokes pipe, not around patient. Vaping Use Vaping status: Never Used Substance Use Topics Alcohol use: No Drug use: No ECG01 Observed: 05/18/2025 2:35 PM Status: F Source: [facility] Ventricular Rate : 68 BPM Atrial Rate : 68 BPM P-R Interval : 162 ms QRS Duration : 86 ms Q-T Interval : 396 ms QTC Calculation(Bazett) : 421 ms Calculated P Leo : 66 degrees Calculated R Leo : 47 degrees Calculated T Leo : 42 degrees NORMAL SINUS RHYTHM NORMAL ECG Confirmed by MD GIRALDO QARAB ([id number]) on 05/23/2025 3:01:39 PM NAME : CHLOE GUILLORY PID : [id number] : 1950 Gender : Female Race : ORD : Procedure Date : May 18 2025 14:35:21 Edit Date : May 23 2025 15:01:42 Diagnosis: NORMAL SINUS RHYTHM NORMAL ECG Confirmed by MD GIRALDO QARAB ([id number]) on 05/23/2025 3:01:39 PM Test Reason : Location : 136 : [place] Overread By : MD GIRALDO QARAB Edited By : MD GIRALDO QARAB Referred By : Myla Mcadams Acquired by : lelo manrique CNOV Observed: 05/18/2025 2:00 PM Status: COMPLETED Source: [facility] CHLOE GUILLORY ([id number]) 1950 F Date Time Provider Department 05/18/25 2:00 PM [facility]AD[facility] During your visit today, we recorded the following information about you: Pulse Respiration Blood pressure 62/minute 16/minute 118/68 Myla Mcadams APRN.ASSISTANT FOOD SERVICE MANAGER 05/18/2025 5:32 PM Addendum This is a [...] Chronic chest pain attributed to fibromyalgia by building maintenance engineer 1-2 months ago. - Pain worsened significantly [...] Insomnia 03/19/2016 Moderate persistent asthma without complication ([facility]) 07/11/2015 07/07/15 Methacholine Inhalation Challenge: 35% drop FEV1 at 2.5 mg/mL. Morbid obesity ([facility]) 04/04/2015 Patient has morbid obesity. Multiple gallstones 03/20/2022 Resolved with lap choly 05/07/2022 KAM (obstructive sleep apnea) 09/26/2015 DME: [facility] Other hyperlipidemia 03/23/2019 RLS (restless legs syndrome) 02/15/2019 Stable angina pectoris 06/26/2020 Type 2 diabetes mellitus with stage 3 chronic kidney disease, with long-term current use of insulin ([facility]) 04/04/2015 Dx: age 51. On metformin and [...] 2000 ALLERGIES Atorvastatin, Dust, Jardiance [Empagliflozin], Mold, Ndntftf-Aex-Apo Reductase Inhibitors, and Victoza [Liraglutide] MEDICATIONS Current [...] as needed for worsening/no improvement. Myla Mcadams APRN.ASSISTANT FOOD SERVICE MANAGER Recording using [employer] software for draft documentation of the visit was discussed with the patient/authorized accounts payable representative; all questions welcomed and answered. Patient/authorized accounts payable representative agreed to proceed [1] Social History Tobacco Use Smoking status: Never Smokeless tobacco: Never Tobacco comments: NO smoking in childhood home. Spouse smokes pipe, not around patient. Vaping Use Vaping status: Never Used Substance Use Topics Alcohol use: No Drug use: No Myla Mcadams APRN.ASSISTANT FOOD SERVICE MANAGER 05/18/2025 2:53 PM Addendum Start the famotidine [...] MOLD 03/19/2016 12 - Shortness of Breath GLXQTPL-MNO-NTR REDUCTASE INHIBIT*04/04/2015 17 - Myalgia VICTOZA (LIRAGLUTIDE) [...] Heartburn [R12] Order(s):ECG COMPLETE [ECG01] Order #: [id number] ondansetron orally disintegrating (ZOFRAN ODT) 4 mg disintegrating tabletTake 1 tablet by mouth every 8 hours as needed for nausea/vomiting.Disp: 20 tabletRfl: 1 cyclobenzaprine (FLEXERIL) 5 mg tabletTake 1 tablet by mouth three times a day.Disp: 30 tabletRfl: 1 famotidine (PEPCID) 20 mg tabletTake 1 tablet by mouth daily at bedtime.Disp: 30 tabletRfl: 1 CONSULT TO GENERAL SURGERY [9011] Order #: [id number]: 1 FUTURE Prescriptions as of 05/18/2025 - [...] recently feel like it is from her [employer] Problem List As Of Date 05/18/2025 Noted [...] bedtime. Level of Service: OFFICE/OUTPATIENT ESTABLISHED MOD [facility] 30 MIN [17422] Additional E/M codes: VISIT CPLX INHERENT EAREBEKAHM ASSOC WITH MED * Encounter Status:Closed by MYLA MCADAMS on 05/18/25 CHUCK Observed: 05/17/2025 12:00 AM Status: COMPLETED Source: [facility] CHLOE GUILLORY ([id number]) 1950 F Date Time Provider Department 05/17/25 [...] were for acute sinusitis. Pt did not vegetable picker any of these meds until the [...] it is no worse. Pt saw her building maintenance engineer on 04/01 for the chest discomfort she [...] do that. Instructed her to call her building maintenance engineer's office to notify him of this worsened [...] times worse than before. Pt saw her building maintenance engineer in [facility] a couple mons ago for [...] RISK FACTORS: asthma 9. CAUSE: pt states building maintenance engineer told her that it is probably her [...] had since last evening. Protocols Used Chest Edti-CMARH-DT Weakness (Generalized) and Uyxwxmi-KBXVH-VU Micky Cee RN 05/17/2025 11:18 AM Signed [...] MOLD 03/19/2016 12 - Shortness of Breath NAGRRID-POD-KZI REDUCTASE INHIBIT*04/04/2015 17 - Myalgia VICTOZA (LIRAGLUTIDE) [...] Observed: 05/2025 12:42 PM Status: F Source: [facility] * * *Final Report* * * [...] facet hypertrophy. IMPRESSION: Degenerative changes as described. Criminal Justice Social Worker: PSCB Transcribe Date/Time: May 16 2025 6:29P Dictated by : MIGUELITO DUNBAR MD This examination was interpreted and the report reviewed and electronically signed by: MIGUELITO DUNBAR MD on May 16 2025 6:30PM EST [id number] PROGRESS Observed: 05/10/2025 12:20 PM Status: COMPLETED Source: [facility] HNO ID: [id number] Author: SONIA MUNOZ Tech Service: ? Author Type: Terrazzo Finisher Helper Type: Progress Notes Filed: 05/10/2025 12:42 Note [...] PATIENT PRESENTS WITH AN IMPLANTABLE OR ATTACHED HAZARDOUS MATERIAL TECHNICIAN: No RADIOLOGY DEPARTMENT: General X-ray: Exam(s) Completed: Spine X-Ray(s): Lumbar AP / LAT / L5-S1 PERIPHERAL IV DATA: Not applicable SIGNED BY: Daniela Tinsley May 10, 2025 12:41 PM PROGRESS Observed: 05/10/2025 11:36 AM Status: COMPLETED Source: [facility] HNO ID: [id number] Author: MICHELLE CEBALLOS APRN.ASSISTANT FOOD SERVICE MANAGER Service: ? Author Type: Nurse Practitioner Type: [...] Recent cardiology evaluation noted good cardiac function; building maintenance engineer suspects fibromyalgia as the etiology of chest pain. Depression: - Chloe reports anhedonia and feelings of hopelessness since her 's fdc. - has COPD, limiting outdoor activities and [...] Insomnia 03/19/2016 Moderate persistent asthma without complication ([facility]) 07/11/2015 07/07/15 Methacholine Inhalation Challenge: 35% drop FEV1 at 2.5 mg/mL. Morbid obesity ([facility]) 04/04/2015 Patient has morbid obesity. Multiple gallstones 03/20/2022 Resolved with lap choly 05/07/2022 KAM (obstructive sleep apnea) 09/26/2015 DME: [facility] Other hyperlipidemia 03/23/2019 RLS (restless legs syndrome) 02/15/2019 Stable angina pectoris 06/26/2020 Type 2 diabetes mellitus with stage 3 chronic kidney disease, with long-term current use of insulin ([facility]) 04/04/2015 Dx: age 51. On metformin and [...] 2000 ALLERGIES Atorvastatin, Dust, Jardiance [Empagliflozin], Mold, Nvfwiqr-Wte-Vjc Reductase Inhibitors, and Victoza [Liraglutide] MEDICATIONS Current [...] enjoy activities due to 's COPD and fdc. 6. Class 3 severe obesity with body mass index (BMI) of 40.0 to 44.9 in adult ([facility]) (E66.813) - Patient is actively trying to lose weight. 7. Type 2 diabetes mellitus with stage 3a chronic kidney disease, with long-term current use of insulin ([facility]) (E11.22) 8. Stage 3a chronic kidney disease ([facility]) (N18.31) - Hemoglobin A1c improved from 7.3 [...] facility. 11. Moderate persistent asthma without complication ([facility]) (J45.40) - Chronic dyspnea and chest pain; [...] as needed for worsening/no improvement. Michelle Ceballos ASSISTANT FOOD SERVICE MANAGER [1] Social History Tobacco Use Smoking status: Never Smokeless tobacco: Never Tobacco comments: NO smoking in childhood home. Spouse smokes pipe, not around patient. Vaping Use Vaping status: Never Used Substance Use Topics Alcohol use: No Drug use: No CNOV Observed: 05/10/2025 11:20 AM Status: COMPLETED Source: [facility] CHLOE GUILLORY ([id number]) 1950 F Date Time Provider Department 05/10/25 11:20 AM MICHELLE CEBALLOS [facility] During your visit today, we recorded the following information about you: Pulse Blood pressure Weight 86/minute 108/66 100.7 kg Michelle Ceballos, [facility] 05/10/2025 11:59 AM Signed This is a [...] Recent cardiology evaluation noted good cardiac function; building maintenance engineer suspects fibromyalgia as the etiology of chest pain. Depression: - Chloe reports anhedonia and feelings of hopelessness since her 's fdc. - has COPD, limiting outdoor activities and [...] Insomnia 03/19/2016 Moderate persistent asthma without complication ([facility]) 07/11/2015 07/07/15 Methacholine Inhalation Challenge: 35% drop FEV1 at 2.5 mg/mL. Morbid obesity ([facility]) 04/04/2015 Patient has morbid obesity. Multiple gallstones 03/20/2022 Resolved with lap choly 05/07/2022 KAM (obstructive sleep apnea) 09/26/2015 DME: [facility] Other hyperlipidemia 03/23/2019 RLS (restless legs syndrome) 02/15/2019 Stable angina pectoris 06/26/2020 Type 2 diabetes mellitus with stage 3 chronic kidney disease, with long-term current use of insulin ([facility]) 04/04/2015 Dx: age 51. On metformin and [...] 2000 ALLERGIES Atorvastatin, Dust, Jardiance [Empagliflozin], Mold, Zwrurpt-Ojt-Ztf Reductase Inhibitors, and Victoza [Liraglutide] MEDICATIONS Current [...] enjoy activities due to 's COPD and fdc. 6. Class 3 severe obesity with body mass index (BMI) of 40.0 to 44.9 in adult ([facility]) (E66.813) - Patient is actively trying to lose weight. 7. Type 2 diabetes mellitus with stage 3a chronic kidney disease, with long-term current use of insulin ([facility]) (E11.22) 8. Stage 3a chronic kidney disease ([facility]) (N18.31) - Hemoglobin A1c improved from 7.3 [...] as needed for worsening/no improvement. Michelle Ceballos ASSISTANT FOOD SERVICE MANAGER [1] Social History Tobacco Use Smoking status: Never Smokeless tobacco: Never Tobacco comments: NO smoking in childhood home. Spouse smokes pipe, not around patient. Vaping Use Vaping status: Never Used Substance Use Topics Alcohol use: No Drug use: No Michelle Ceballos APRN.ASSISTANT FOOD SERVICE MANAGER 05/10/2025 11:59 AM Signed - Start topiramate [...] MOLD 03/19/2016 12 - Shortness of Breath DFKKVYG-AID-BJA REDUCTASE INHIBIT*04/04/2015 17 - Myalgia VICTOZA (LIRAGLUTIDE) 01/27/2018 14 - Other: See Comments Comments: Thinks she had thyroid issues from it. Date Reviewed: 04/18/2025 Reviewed by: Hyun Mata MA - Fully Assessed Reason for Visit: 6 Month Exam [189] Primary Visit Diagnosis:Class 3 severe obesity with body mass index (BMI) of 40.0 to 44.9 in adult ([facility]) [E66.813, Z68.41] Other Visit Diagnoses:Primary hypertension [I10] Insomnia, unspecified type [G47.00] Encounter for screening mammogram for breast cancer [Z12.31] Screening for depression [Z13.31] Encounter for screening examination for other mental health and behavioral disorders [Z13.39] Type 2 diabetes mellitus with stage 3a chronic kidney disease, with long-term current use of insulin ([facility]) [E11.22, N18.31, Z79.4] Chronic pain of both shoulders [M25.511, G89.29, M25.512] Moderate persistent asthma without complication ([facility]) [J45.40] Hypothyroidism, unspecified type [E03.9] Stage 3a chronic kidney disease ([facility]) [N18.31] Acute sinusitis, recurrence not specified, unspecified location [J01.90] Order(s):olmesartan (BENICAR) 20 mg tabletTake 1 tablet by mouth once daily.Disp: 90 tabletRfl: 3 traZODone (DESYREL) 150 mg tabletTake 1 tablet by mouth daily at bedtime.Disp: 90 tabletRfl: 3 MANJULA SCREENING W HAILEE [[id number]] Order #: [id number] FUTURE DEPRESSION SCREENING [] Order #: [id number]: 1 ANXIETY SCREENING [] Order #: [id number]: 1 topiramate (TOPAMAX) 25 mg tabletTake 1 [...] Service: OFFICE/OUTPATIENT ESTABLISHED MOD MDM 30 MIN [01176] Additional E/M codes: VISIT CPLX INHERENT EANDM ASSOC WITH MED * Disposition: Return in about 6 months (around 11/07/2025) for routine. Follow-up and Disposition History for Encounter Date Provider Department Center 05/10/2025 [id number]-ITJQLLSHANA CEBALLOS*FAMPWS Rachel [facility] Encounter Status:Closed by MICHELLE CEBALLOS on 05/10/25 PROGRESS Observed: 05/04/2025 10:26 AM Status: COMPLETED Source: [facility] HNO ID: [id number] Author: NIKOLAS CRAVEN RPh Service: ? Author [...] this calendar year. Patient has: PCP at [facility] - Michelle Ceballos APRN.ASSISTANT FOOD SERVICE MANAGER Cardiology provider at [facility] - No care truck driver teamster to display Patient has: ASCVD diagnosis (CAD) [...] Observed: 05/04/2025 12:00 AM Status: COMPLETED Source: [facility] Patient Outreach (PHPOHE) CHLOE GUILLORY ([id number]) 1950 F Date Time Provider Department 05/04/25 NIKOLAS CRAVEN [facility] During your visit today, we recorded the following information about you: Nikolas Craven RPh 05/04/2025 10:30 AM Signed Chloe Dillon Kahlil is identified AND reviewed as part of population health initiative focused on STAR measures care gaps through data from [employer] (insurer) SPC as a potential candidate for statin therapy with no prescription claims processes for a statin medication in this calendar year. Patient has: PCP at [facility] - Michelle Ceballos APRN.ASSISTANT FOOD SERVICE MANAGER Cardiology provider at [facility] - No care truck driver teamster to display Patient has: ASCVD diagnosis (CAD) [...] MOLD 03/19/2016 12 - Shortness of Breath WNCVKMT-NUW-FZO REDUCTASE INHIBIT*04/04/2015 17 - Myalgia VICTOZA (LIRAGLUTIDE) [...] ed: 04/29/2025 11:44 AM Status: F Source: [facility] Order Comment: Specimen Type : URINE SPECIMEN Ordering Facility: [facility] Address: [address] [place] [address] TYPE CODE TESTS RESULT OUT OF RANGE REFERENCE UNITS LAB 2161-8(LOINC) Creat Ur-mCnc 410.5 High 20.0-300.0 m g/dL LAB 90293-9(LOINC ) Microalbumin Ur-mCnc 103.4 mg/L LAB 9318-7(LOINC) [...] 3(1), 1-150. Performed By: #### UACR #### [facility] CLIA [id number] [address] [place] [address] STATES OF [facility] CBC PNL BLD AUTO Collected: 5 11:03 AM Status: F Source: [facility] Order Comment: Specimen Type : BLOOD SPECIMEN Ordering Facility: [facility] Address: [address] [place] [address] TYPE CODE TESTS RESULT OUT OF RANGE [...] MCHC RBC Auto-mCnc 32.4 30.5-36.0 g/dL LAB 39917-7(LOINC) RDW RBC-Rto 13.5 11.5-15.0 % LAB 777-3(LOINC) Platelet # Bld Auto 320 150-400 k/uL LAB 51583-3(LOINC) PMV Bld Auto 9.3 9.0-12.7 fL LAB 771-6(LOINC) nRBC # Bld Auto <0.01 <0.01 k/uL Performed By: #### [id number] # ### [facility] CLIA [id number] [address] [place] [address] [place] COMP METAB 2000 PNL SERPL Collected: 11:03 AM Status: F Source: [facility] Comment: Specimen Type : BLOOD SPECIMEN Ordering Facility: [facility] Address: [address] [place] [address] [place] [address] TYPE CODE TESTS RESULT OUT OF RANGE REFERENCE UNITS LAB 2885-2(LOINC) Prot SerPl-mCnc 6.6 6.3-8.0 g/dL LAB 1751-7(LOINC) Albumin SerPl-mCnc 4.0 3.9-4.9 g/dL LAB 27460-4(LOINC) Calcium SerPl-mCnc 9.5 8.5-10.2 mg/dL LAB 1975-2(LOINC) Bilirub SerPl-mCnc 0.2 0.2-1.3 mg/dL LAB 6768-6(LOINC) ALP SerPl-cCnc 51 34-123 U/L LAB 1920-8(LOINC) AST SerPl-cCnc 14 13-35 U/L LAB 1742-6(LOINC) ALT SerPl-cCnc 12 7-38 U/L LAB 2345-7(LOINC) Glucose SerPl-mCnc 119 High 74-99 mg/dL Result Comment: The [place] [employer] Association (ADA) provides guidance for cutoff [...] Standards of Medical Care in Diabetes 2016, [place] [employer]. Diabetes Care. 2016.39(Suppl 1). LAB 3094-0(LOINC) BUN SerPl-mCnc 22 High 7-21 mg/dL LAB 2160-0(LOINC) Creat SerPl-mCnc 1.14 High 0.58-0.96 mg/dL LAB 2951-2(LOINC) Sodium SerPl-sCnc 140 136-144 mmol/L LAB 2823-3(LOINC) Potassium SerPl-sCnc 4.7 3.7-5.1 mmol/L LAB 2075-0(LOINC) Chloride SerPl-sCnc 104 98-107 mmol/L LAB 2027-9(LOINC) CO2 SerPl-sCnc 24 22-30 mmol/L LAB 69663-6(LOINC) Anion Gap SerPl-sCnc 12 8-15 mmol/L LAB 76185-1(LOINC) eGFRcr SerPlBld CKD-EPI 2020 51 Low >=60 [...] accurately reflect actual GFR. Performed By: #### [id number] # ### [facility] CLIA [id number] [address] [place] [address] [place] DEPRECATED HGB A1C BLD Collected: 04/29 11:03 AM Status: F [facility] [facility] Comment: Specimen Type : BLOOD SPECIMEN Ordering Facility: [facility] Address: [address] [place] [address] TYPE CODE TESTS RESULT OUT OF RANGE REFERENCE UNITS LAB 4548-4(LOINC) HbA1c MFr Bld 6.5 High 4.3-5.6 % Result Comment: [place] Naheed betes Association guidelines indicate that patients with HgbA1c in the range 5.7-6.4% are at increased risk for development of diabetes, and intervention by lifestyle modification may be beneficial. HgbA1c greater or equal to 6.5% is considered diagnostic of diabetes. LAB 96179-6(LOINC) Est. average glucose Bld gHb Est-mCnc 140 mg/dL Result Comment: eAG: (Estima vance average glucose) is a calculated value from HgbA1c and is accounts payable representative of the average blood glucose level in the last 2-3 month period. Performed By: #### 28746-7 # ### [facility] CLIA [id number] [address] [place], [place] [address] [address] [place] LIPID 1996 PNL SERPL Collected: 025 11:03 AM Status: F Source: [facility] Order Comment: Specimen Type : BLOOD SPECIMEN Ordering Facility: [facility] Address: [address] [place] [address] TYPE CODE TESTS RESULT OUT OF RANGE [...] is calculated using the Hsu-NIH equation. LAB 49563-7(LOINC) NonHDLc SerPl-mCnc 136 High <130 mg/dL Result Comment: <130 mg/dL, Optimal 130-159 mg/dL, Near optimal/above optimal 160-189 mg/dL, Borderline high 190-219 mg/dL, High >219 mg/dL, Very high Secondary prevention optimal non HDL Cholesterol levels are recommended to be <100 mg/dL LAB 64215-4(LOINC) VLDLc SerPl Calc-mCnc 23 <30 mg/dL LAB 9830-1(LOINC) Cholest/HDL c SerPl 3.57 <5.10 LAB 77072-2(LOINC) LDLc/HDLc SerPl 2.11 <2.54 Result Comment: Reference: 1. National Cholesterol Education Program ATP III Guideline At-A-Glance Quick Desk Reference: National Heart, Lung, and Blood [place]. National Institutes of Health. 2001: NIH Publication No. 01-3305. 2. An International Atherosclerosis Society position paper: global recommendations for the management of dyslipidemia: executive summary, Atherosclerosis. 2014: 232(2):410-413. LAB FT FASTING TIME 12 hrs Performed By: #### 30299-7 # ### [facility] CLIA [id number] [address] [place], [place] [address] [place] [address] [place] #### 3016-3 #### [facility] CLIA [id number] [address] [place] [address] STATES [facility] TSH SERPL-ACNC Collected: 5 11:03 AM Status: F Source: [facility] Order Comment: Specimen Type : BLOOD SPECIMEN Ordering Facility: [facility] Address: [address] [place] [address] TYPE CODE TESTS RESULT OUT OF RANGE REFERENCE UNITS LAB 3016-3([facility]) TSH SerPl-aCnc 3.590 0.270-4.200 mIU/L Performed By: #### 14808-9 # ### [facility] CLIA [id number] [address] [place], [place] [address] [place] [address] OF [place] #### 3016-3 #### [facility] CLIA [id number] [address] [place] [address] [place] PROGRESS Observed: 04/18/2025 1:52 PM Status: COMPLETED [facility] [id number] Author: KRISTIN BYRNE PA-C Service: ? Author Type: Physician Security [employer]ession[employer] Type: Progress Notes Filed: 04/18/2025 13:59 Note Text: [facility] Orthopaedics [address] [facility] [address] Dept: [phone] Dept April 18, 2025 CHIEF COMPLAINT: Follow [...] hyperglycemia, with long-term current use of insulin ([facility]) PLAN: Patient certainly has left shoulder glenohumeral [...] these instructions. Informed Consent Consent Obtained: Verbal Henderson Protocol A moment to CARE was completed. [...] IMPRESSION: 1. Osteoarthritis of the bilateral shoulders Criminal Justice Social Worker: JOHNSON Transcribe Date/Time: Nov 10 2024 5:27P [...] visit. Allergies: Atorvastatin, Dust, Jardiance [Empagliflozin], Mold, Qkwuyqq-Kbq-Gnu Reductase Inhibitors, and Victoza [Liraglutide] ROS: General (negative for fatigue, malaise, weight loss/gain) HEENT (negative for headache, earache, recent vision changes, sinus pain, sore throat) Respiratory (no recent shortness of breath, hemoptysis) CV (negative for chest tightness, palpitations) Musculoskeletal (see HPI) Psych (no depression, anxiety) This note was partially generated using Bandspeed voice recognition system, and there may be some incorrect words, spellings, and punctuation that were not noted in checking the note before saving. Kristin Byrne PA-C PROGRESS Observed: 04/18/2025 1:34 PM Status: COMPLETED Source: [facility] HNO ID: [id number] Author: HYUN MATA MA Service: ? Author Type: Chain Mender Type: Progress Notes Filed: 04/18/2025 13:59 Note Text: AMB ROOMING INTAKE FLOWSHEET DATA Pain Pain Level: 8 Pain Location: (bilateral shoulder) Description: Aching, Dull Duration Amount of Time: (ongoing) Frequency: Continuous Intervention/Comfort measure: Other: See comment (none) Patient would like cortisone injection today into both shoulders. FBS 120's and under. CNOV Observed: 04/18/2025 1:30 PM Status: COMPLETED Source: [facility] Office Visit (ORTHWS) CHLOE GUILLORY ([id number]) 1950 F Date Time Provider Department 04/18/25 [...] PA-C Department of Orthopaedics Orthopaedics [address] [facility] [address] Dept: [phone] Dept April 18, 2025 CHIEF COMPLAINT: Follow [...] hyperglycemia, with long-term current use of insulin ([facility]) PLAN: Patient certainly has left shoulder glenohumeral [...] these instructions. Informed Consent Consent Obtained: Verbal Henderson Protocol A moment to CARE was completed. [...] IMPRESSION: 1. Osteoarthritis of the bilateral shoulders Criminal Justice Social Worker: JOHNSON Transcribe Date/Time: Nov 10 2024 5:27P [...] visit. Allergies: Atorvastatin, Dust, Jardiance [Empagliflozin], Mold, Oeponws-Gtj-Uym Reductase Inhibitors, and Victoza [Liraglutide] ROS: General (negative for fatigue, malaise, weight loss/gain) HEENT (negative for headache, earache, recent vision changes, sinus pain, sore throat) Respiratory (no recent shortness of breath, hemoptysis) CV (negative for chest tightness, palpitations) Musculoskeletal (see HPI) Psych (no depression, anxiety) This note was partially generated using Bandspeed voice recognition system, and there may be some incorrect words, spellings, and punctuation that were not noted in checking the note before saving. Kristin Byrne PA-C Referring Provider: MICHELLE CEBALLOS [[id number]] Allergies As of Date: 04/18/2025 Noted Allergy Reaction ATORVASTATIN 11/08/2024 17 - Myalgia Comments: Craps in all muscles DUST 09/26/2015 3 - Cough JARDIANCE (EMPAGLIFLOZIN) 01/27/2018 14 - Other: See Comments Comments: Became suicidal MOLD 03/19/2016 12 - Shortness of Breath AQYAXGT-TZD-AAZ REDUCTASE INHIBIT*04/04/2015 17 - Myalgia VICTOZA (LIRAGLUTIDE) [...] hyperglycemia, with long-term current use of insulin ([facility]) [E11.65, Z79.4] Order(s):XR LUMBAR GENERAL 3V AP/LAT/L5-S1 [[id number]] Order #: [id number] FUTURE Large Joint Arthro/Inj: L subacromial bursa [JHJ421] Order #: [id number] [] betamethasone acetate-betamethasone sodium phosphate 6 mg [...] Observed: 04/12/2025 1:43 PM Status: F Source: [facility] Echocardiography Report: Tra nsthoracic Echo [facility] Date of service: 04/12/2025 1:43:08 PM OPERATOR Ordering physician: ALVIN GIRALDO Exam indication: Shortness of Breath Technologist: Lisseth Olmedo [facility] Interpreting physician: Ritika Apodaca MD PATIENT: Name: [...] * * * Final * * * Cell [employer] [facility] : [id number] CNOV Observed: 04/01/2025 2:00 PM Status: COMPLETED Source: [facility] Office Visit (CARDMM) CHLOE GUILLORY ([id number]) 1950 F Date Time Provider Department 04/01/25 2:00 PM ALVIN GIRALDO [facility] During your visit today, we recorded the following information about you: Pulse Blood pressure Weight Height 68/minute 112/64 103.2 kg 1.549 m Alvin Giraldo MD 04/01/2025 2:24 PM Signed Salvador Ramirez Department of Cardiovascular Medicine Heart, Vascular and Thoracic [place] SECTION OF REGIONAL CARDIOLOGY April 01, 2025 [...] a cardiac catheterization 5 years ago at [facility], which was normal. An ECG performed today was also normal. Lab tests from last month showed normal potassium and liver function, with cholesterol levels reported as normal but could be improved. Previous lab results from July of last year indicated slightly elevated cholesterol levels. PAST MEDICAL HISTORY Diagnosis Date Hypertension Hypothyroidism Insomnia 03/19/2016 Moderate persistent asthma without complication ([facility]) 07/11/2015 07/07/15 Methacholine Inhalation Challenge: 35% drop FEV1 at 2.5 mg/mL. Morbid obesity ([facility]) 04/04/2015 Patient has morbid obesity. Multiple gallstones 03/20/2022 Resolved with lap choly 05/07/2022 KAM (obstructive sleep apnea) 09/26/2015 DME: [email or web address] Other hyperlipidemia 03/23/2019 RLS (restless legs syndrome) 02/15/2019 Stable angina pectoris 06/26/2020 Type 2 diabetes mellitus with stage 3 chronic kidney disease, with long-term current use of insulin ([facility]) 04/04/2015 Dx: age 51. On metformin and [...] Comments Became suicidal Mold Shortness of Breath Jxcrlpk-Pnr-Kcf Red* Myalgia Victoza [Liraglutid* Other: See Comments [...] 74 - 99 mg/dL Final Comment: The [place] Diabetes Association (ADA) provides guidance for cutoff [...] Standards of Medical Care in Diabetes 2016, [place] Diabetes Association. Diabetes Care. 2016.39(Suppl 1). BUN [...] Diagnosis ICD-10-CM 1. 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 3. 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 - Discussed dietary modifications, including reducing intake of carbohydrates and fatty foods, and increasing consumption of vegetables, salads, fish, and chicken. - Offered referral to a health and campus wellness coordinator for additional support in weight management. 9. [...] not tolerate CPAP machine. Recommend dentist or dixonac operator consult for mouthgard to improve sleep hygiene. [...] at 1:53 PM. Alvin Giraldo MD, FACC. Dealership General Manager, Dept of Cardiology, [facility]. Staff Software Tools Developer, Heart, Vascular and Thoracic [place], [facility]. Alvin Giraldo MD 04/01/2025 2:13 PM [...] refer you to a dietitian or a campus wellness coordinator. Wellness coaching can also be done remotely [...] you develop palpitations. Referring Provider: MICHELLE CEBALLOS [[id number]] Allergies As of Date: 04/01/2025 Noted Allergy Reaction ATORVASTATIN 11/08/2024 17 - Myalgia Comments: Craps in all muscles DUST 09/26/2015 3 - Cough JARDIANCE (EMPAGLIFLOZIN) 01/27/2018 14 - Other: See Comments Comments: Became suicidal MOLD 03/19/2016 12 - Shortness of Breath ZDVFYLG-DUZ-PWF REDUCTASE INHIBIT*04/04/2015 17 - Myalgia VICTOZA (LIRAGLUTIDE) 01/27/2018 14 - Other: See Comments Comments: Thinks she had thyroid issues from it. Date Reviewed: 04/01/2025 Reviewed by: Alvin Giraldo MD - Fully Assessed Reason for Visit: New Patient [172] Primary Visit Diagnosis:Coronary artery disease of southern [place] heart with stable angina pectoris, unspecified vessel [...] [R07.2] Order(s):CONSULT TO CARDIOLOGY [9004] Order #: [id number]: 1 ECG COMPLETE [ECG01] Order #: [id number]. #:[id number]--QUTRumx ECHO [576523] Order #: [id number]: 1 FUTURE Prescriptions as of 04/01/2025 - [...] refer you to a dietitian or a campus wellness coordinator. Wellness coaching can also be done remotely [...] for Encounter Date Provider Department Center 04/01/2025 [id number], QARAB [facility] Encounter Status:Closed by ALVIN GIRALDO on 04/01/25 PROGRESS Observed: 04/01/2025 2:00 PM Status: COMPLETED Source: [facility] ID: [id number] Author: ALVIN GIRALDO MD Service: ? Author Type: Physician Type: Progress Notes Filed: 04/01/2025 14:24 Note Text: Salvador Ramirez Department of Cardiovascular Medicine Heart, Vascular and Thoracic [place] SECTION OF REGIONAL CARDIOLOGY April 01, 2025 [...] a cardiac catheterization 5 years ago at [facility], which was normal. An ECG [...] 05/07/2022 KAM (obstructive sleep apnea) 09/26/2015 DME: [email or web address] Other hyperlipidemia 03/23/2019 RLS (restless legs syndrome) [...] Comments Became suicidal Mold Shortness of Breath Uxrdomw-Ffl-Vst Red* Myalgia Victoza [Liraglutid* Other: See Comments [...] 74 - 99 mg/dL Final Comment: The [place] Diabetes Association (ADA) provides guidance for cutoff [...] Standards of Medical Care in Diabetes 2016, [place] Diabetes Association. Diabetes Care. 2016.39(Suppl 1). BUN [...] Diagnosis ICD-10-CM 1. 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 3. 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 - Discussed dietary modifications, including reducing intake of carbohydrates and fatty foods, and increasing consumption of vegetables, salads, fish, and chicken. - Offered referral to a health and campus wellness coordinator for additional support in weight management. 9. [...] not tolerate CPAP machine. Recommend dentist or dixonac operator consult for mouthgard to improve sleep hygiene. [...] at 1:53 PM. Alvin Giraldo MD, FACC. Dealership General Manager, Dept of Cardiology, [facility]. Staff Software Tools Developer, Heart, Vascular and Thoracic [place], [facility]. ECG01 Observed: 04/01/2025 1:55 PM Status: F Source: [facility] Ventricular Rate : 68 BPM Atrial Rate : 68 BPM P-R Interval : 174 ms QRS Duration : 94 ms Q-T Interval : 388 ms QTC Calculation(Bazett) : 412 ms Calculated P Leo : 35 degrees Calculated R Leo : 46 degrees Calculated T Leo : 38 degrees NORMAL SINUS RHYTHM NORMAL ECG Confirmed by MD AINSLEY, ALVIN ([id number]), online editor DIXIE GENTILE ([id number]) on 04/04/2025 5:04:34 PM NAME : CHLOE GUILLORY PID : [id number] : 1950 Gender : Female Race : ORD : Procedure Date : Apr 01 2025 13:55:32 Edit Date : Apr 04 2025 17:04:36 Diagnosis: NORMAL SINUS RHYTHM NORMAL ECG Confirmed by MD AINSLEY, ALVIN ([id number]), online editor DIXIE GENTILE ([id number]) on 04/04/2025 5:04:34 PM Test Reason : [facility] : [facility] Over[facility] By : MD GIRALDO QARAB Edited By : DIXIE GENTILE Referred By : MICHELLE CEBALLOS Acquired by : FREEMAN RENDON POTASSIUM Collected: 03/14/2025 2:15 PM Status: F Source: [facility] Order Comment: Specimen Type : BLOOD SPECIMEN Ordering Facility: [facility] Address: [address] [place] [address] TYPE CODE TESTS RESULT OUT OF RANGE REFERENCE UNITS LAB 2823-3(LOINC) Potassium SerPl-sCnc 4.5 3.7-5.1 mmol/L Performed By: #### 36460-7, K1 #### [facility] CLIA [id number] [address] [place] [address] [place] MAGNESIUM SERPL-MCNC Collected: 03/14/2025 2:15 PM S tatus: F Source: [facility] Order Comment: Specimen Type : BLOOD SPECIMEN Ordering Facility: [facility] Address: [address] [place] [address] TYPE CODE TESTS RESULT OUT OF RANGE REFERENCE UNITS LAB 91910-5(LOINC) Magnesium SerPl-mCnc 1.7 1.7-2.3 mg/dL Performed By: #### 53585-4, K1 #### [facility] CLIA [id number] [address] [place] [address] [place] CNPN Observed: 02/14/2025 12:00 AM Status: COMPLETED Source: [facility] Telephone (FAMPWS) CHLOE GUILLORY ([id number]) 1950 F Date Time Provider Department 02/14/25 CHICHO BRIANWS During your visit today, we recorded the following information about you: Chicho Brian MD 02/14/2025 12:29 PM Signed Labs are improving. Sugars and lipids are improving. Her mag is low. It looks like Alania just increased her mag to bid? If [...] MOLD 03/19/2016 12 - Shortness of Breath IRFPDOL-DAE-TMB REDUCTASE INHIBIT*04/04/2015 17 - Myalgia VICTOZA (LIRAGLUTIDE) 01/27/2018 14 - Other: See Comments Comments: Thinks she had thyroid issues from it. Date Reviewed: 02/11/2025 Reviewed by: Bel Wade MA - Fully Assessed Reason for Visit: Results [95] Primary Visit Diagnosis:Hypomagnesemia [E83.42] Other Visit Diagnosis:Hyperkalemia [E87.5] Order(s):POTASSIUM [SQK1] Order #: [id number] FUTURE MAGNESIUM [SQMG1] Order #: [id number] FUTURE Prescriptions as of 02/16/2025 - magnesium [...] SERPL Collected: 12:38 PM Status: F Source: [facility] Order Comment: Specimen Type : BLOOD SPECIMEN Ordering Facility: [facility] Address: [address] [place] [address] TYPE CODE TESTS RESULT OUT OF RANGE REFERENCE UNITS LAB 2885-2(LOINC) Prot SerPl-mCnc 7.0 6.3-8.0 g/dL LAB 1751-7(LOINC) Albumin SerPl-mCnc 4.1 3.9-4.9 g/dL LAB 54785-8(LOINC) Calcium SerPl-mCnc 9.6 8.5-10.2 mg/dL LAB 1975-2(LOINC) Bilirub SerPl-mCnc 0.2 0.2-1.3 mg/dL LAB 6768-6(LOINC) ALP SerPl-cCnc 60 34-123 U/L LAB 1920-8(LOINC) AST SerPl-cCnc 22 13-35 U/L LAB 1742-6(LOINC) ALT SerPl-cCnc 17 7-38 U/L LAB 2345-7(LOINC) Glucose SerPl-mCnc 169 High 74-99 mg/dL Result Comment: The [place] Diabetes Association (ADA) provides guidance for cutoff [...] Standards of Medical Care in Diabetes 2016, [place] Diabetes Association. Diabetes Care. 2016.39(Suppl 1). LAB 3094-0(LOINC) BUN SerPl-mCnc 28 High 7-21 mg/ dL LAB 2160-0(LOINC) Creat SerPl-mCnc 1.06 High 0.58-0.96 mg/dL LAB 2951-2(LOINC) Sodium SerPl-sCnc 139 136-144 mmol/L LAB 2823-3(LOINC) Potassium SerPl-sCnc 5.2 High 3.7-5.1 mmol/L LAB 2075-0(LOINC) Chloride SerPl-sCnc 103 98-107 mmol/L LAB 2028-9(LOINC) CO2 SerPl-sCnc 24 22-30 mmo l/L LAB 72050-2(LOINC) Anion Gap SerPl-sCnc 12 8-15 mmol/L LAB 63982-6(LOINC) Creatinine + eGFR Pnl SerPlBld 56 Low [...] accurately reflect actual GFR. Performed By: #### 23199-8, 69216-4, 02108-9, 2132-9 #### [facility] CLIA [id number] [address] [place] [address] [place] LIPID 1996 PNL SERPL Collected: 025 12:38 PM Status: F Source: [facility] Order Comment: Specimen Type : BLOOD SPECIMEN Ordering Facility: [facility] Address: [address] [place] [address] TYPE CODE TESTS RESULT OUT OF RANGE [...] risk factor for coronary heart disease LAB 2089-1[facility] LDLc SerPl-mCnc 119 High <100 mg/dL Result Comment: <100 mg/dL, Optimal 100-129 mg/dL, Near optimal/above optimal 130-159 mg/dL, Borderline high 160-189 mg/dL, High >189 mg/dL, Very high Secondary prevention optimal LDL Cholesterol levels are recommended to be <70 mg/dL LDL cholesterol is calculated using the Hsu-NIH equation. LAB 85312-7(LOINC) NonHDLc SerPl-mCnc 140 High <130 mg/dL Result Comment: <130 mg/dL, Optimal 130-159 mg/dL, Near optimal/above optimal 160-189 mg/dL, Borderline high 190-219 mg/dL, High >219 mg/dL, Very high Secondary prevention optimal non HDL Cholesterol levels are recommended to be <100 mg/dL LAB 87871-4(LOINC) VLDLc SerPl Calc-mCnc 20 <30 mg/dL LAB 9830-1(LOINC) Cholest/HDLc SerPl 3.64 <5.10 LAB 97325-4(LOINC) LDLc/HDLc SerPl 2.25 <2.54 Result Comment: Reference: 1. National Cholesterol Education Program ATP III Guideline At-A-Glance Quick Desk Reference: National Heart, Lung, and Blood [place]. National Institutes of Health. 2001: NIH Publication No. 01-3305. 2. An International Atherosclerosis Society position paper: global recommendations for the management of dyslipidemia: executive summary, Atherosclerosis. 2014: 232(2):410-413. LAB FT FASTING TIME 12 hrs Performed By: #### 12886-0, 74286-8, 08683-9, 2132-05 #### [facility] CLIA [id number] [address] [place], [place] [address] [place] MAGNESIUM SERPL-MCNC Collected: 12:38 PM Status: F Source: [facility] Comment: Specimen Type : BLOOD SPECIMEN Ordering Facility: [facility] Address: [address] [place] [address] TYPE CODE TESTS RESULT OUT OF RANGE REFERENCE UNITS LAB 57523-6(LOINC) Magnesium SerPl-mCnc 1.4 Low 1.7-2.3 mg/dL Performed By: #### 61690-6, 37206-1, , 2132-05 #### [facility] CLIA [id number] [address] [place] [address] [place] VIT B12 SERPL-MCNC Collected: 12:38 PM Status: F Source: [facility] Comment: Specimen Type : BLOOD SPECIMEN Ordering Facility: [facility] Address: [address] [place] [address] TYPE CODE TESTS RESULT OUT OF RANGE REFERENCE UNITS LAB 2131-9(LOINC) Vit B12 SerPl-mCnc 312 283-8306 pg/mL Performed By: #### 55058-3, 86178-8, 72165-6, 2132-05 #### [facility] CLIA [id number] [address] [place], [place] [address] [place] DEPRECATED HGB A1C BLD Collected: 02/11 12:38 PM Status: F Source: [facility] Comment: Specimen Type : BLOOD SPECIMEN Ordering Facility: [facility] Address: [address] [place], [place] [address] TYPE CODE TESTS RESULT OUT OF RANGE REFERENCE UNITS LAB 4548-4(LOINC) HbA1c MFr Bld 7.3 High 4.3-5.6 % Result Comment: [place] Naheed betes Association guidelines indicate that patients with HgbA1c in the range 5.7-6.4% are at increased risk for development of diabetes, and intervention by lifestyle modification may be beneficial. HgbA1c greater or equal to 6.5% is considered diagnostic of diabetes. LAB 18469-1(LOINC) Est. average glucose Bld gHb Est-mCnc 163 mg/dL Result Comment: eAG: (Estima vance average glucose) is a calculated value from HgbA1c and is accounts payable representative of the average blood glucose level in the last 2-3 month period. Performed By: #### 16872-3 # ### [facility] CLIA [id number] [address] [place] [address] [place] PROGRESS Observed: 02/11/2025 11:58 AM Status: COMPLETED Source: [facility] HNO ID: [id number] Author: MICHELLE CEBALOLS APRN.ASSISTANT FOOD SERVICE MANAGER Service: ? Author Type: Nurse Practitioner Type: [...] around 200 mg/dL. - Unable to afford [employer] due to cost. - Currently taking Lantus [...] Insomnia 03/19/2016 Moderate persistent asthma without complication ([facility]) 07/11/2015 07/07/15 Methacholine Inhalation Challenge: 35% drop FEV1 at 2.5 mg/mL. Morbid obesity ([facility]) 04/04/2015 Patient has morbid obesity. Multiple gallstones 03/20/2022 Resolved with lap choly 05/07/2022 KAM (obstructive sleep apnea) 09/26/2015 DME: [facility] Other hyperlipidemia 03/23/2019 RLS (restless legs syndrome) 02/15/2019 Stable angina pectoris 06/26/2020 Type 2 diabetes mellitus with stage 3 chronic kidney disease, with long-term current use of insulin ([facility]) 04/04/2015 Dx: age 51. On metformin and [...] 2000 ALLERGIES Atorvastatin, Dust, Jardiance [Empagliflozin], Mold, Bfqlmlr-Ins-Pxy Reductase Inhibitors, and Victoza [Liraglutide] MEDICATIONS Current [...] as needed for worsening/no improvement. Michelle Ceballos APRN.ASSISTANT FOOD SERVICE MANAGER CNOV Observed: 02/11/2025 11:40 AM Status: COMPLETED Source: [facility] CHLOE GUILLORY ([id number]) 1950 F Date Time Provider Department 02/11/25 11:40 AM MICHELLE CEBALLOS During your visit today, we recorded the following information about you: Pulse Blood pressure Weight 65/minute 122/64 103.4 kg Michelle Ceballos, LEON.ASSISTANT FOOD SERVICE MANAGER 02/11/2025 12:20 PM Signed This is a [...] 05/07/2022 KAM (obstructive sleep apnea) 09/26/2015 DME: [facility] Other hyperlipidemia 03/23/2019 RLS (restless legs syndrome) 02/15/2019 Stable angina pectoris 06/26/2020 Type 2 diabetes mellitus with stage 3 chronic kidney disease, with long-term current use of insulin ([facility]) 04/04/2015 Dx: age 51. On metformin and [...] 2000 ALLERGIES Atorvastatin, Dust, Jardiance [Empagliflozin], Mold, Krvlmhp-Dwh-Juk Reductase Inhibitors, and Victoza [Liraglutide] MEDICATIONS Current [...] MOLD 03/19/2016 12 - Shortness of Breath RGXXKDB-ROP-JJL REDUCTASE INHIBIT*04/04/2015 17 - Myalgia VICTOZA (LIRAGLUTIDE) [...] 3 LIPID PANEL, FASTING [SQLIPB] Order #: [id number] FUTURE COMPREHENSIVE METABOLIC PANEL [SQCMP] Order #: [id number] FUTURE MAGNESIUM [SQMG1] Order #: [id number] FUTURE VITAMIN B12 [SQB12] Order #: [id number] FUTURE HEMOGLOBIN A1C [NQLSO5E] Order #: [id number] FUTURE Prescriptions as of 02/11/2025 - magnesium [...] bedtime. Level of Service: OFFICE/OUTPATIENT ESTABLISHED LOW [facility] 20 MIN [54382] Additional E/M codes: VISIT CPLX INHERENT EANDM ASSOC WITH MED * LOS History for Encounter Level of Service: OFFICE/OUTPATIENT ESTABLISHED MOD [facility] 30 MIN[87340] Date AND Time: 02-11-2025 12:17 PM Recorded by User: MICHELLE CEBALLOS Encounter Status:Closed by MICHELLE CEBALLOS on 02/11/25 CNPN Observed: 02/11/2025 12:00 AM Status: COMPLETED Source: [facility] CHLOE GUILLORY ([id number]) 1950 F Date Time Provider Department 02/11/25 MICHELLE CEBALLOS [employer] [facility] [facility] [employer] During your visit today, we recorded the following information about you: Danii Amnada LPN 02/11/2025 4:14 PM Signed VELIA Reilly sends fax that alogliptin is not covered by insurance. Asking for change to januvia 100 mg or tradjenta 5 mg? Or would you like prior auth attempted? Michelle Ceballos, CLOTH COVERED HELMET PULLER.ASSISTANT FOOD SERVICE MANAGER 02/11/2025 4:24 PM Signed Januvia [address] of alogliptin. Allergies As of Date: 02/11/2025 Noted Allergy Reaction ATORVASTATIN 11/08/2024 17 - Myalgia Comments: Craps in all muscles DUST 09/26/2015 3 - Cough JARDIANCE (EMPAGLIFLOZIN) 01/27/2018 14 - Other: See Comments Comments: Became suicidal MOLD 03/19/2016 12 - Shortness of Breath JBQDZLI-YCR-TVI REDUCTASE INHIBIT*04/04/2015 17 - Myalgia VICTOZA (LIRAGLUTIDE) 01/27/2018 14 - Other: See Comments Comments: Thinks she had thyroid issues from it. Date Reviewed: 02/11/2025 Reviewed by: Bel Wade MA - Fully Assessed Reason for Visit: Insurance Authorization [[id number]] Primary Visit Diagnosis:Controlled type 2 diabetes mellitus without complication, with long-term current use of insulin ([facility]) [E11.9, Z79.4] Order(s):SITagliptin phosphate (JANUVIA) 100 mg [...] Observed: 02/07/2025 2:23 PM Status: COMPLETED Source: [facility] HNO ID: [id number] Author: KRISTIN BYRNE PA-C Service: ? Author Type: Physician Security Professionals Type: Progress Notes Filed: 02/07/2025 14:33 Note Text: [facility] Orthopaedics [address] [facility] [address] Dept: [phone] Dept February 07, 2025 CHIEF COMPLAINT: New [...] hyperglycemia, with long-term current use of insulin ([facility]) N18.31 Stage 3a chronic kidney disease (HCC) [...] insulin (hcc) Stage 3a chronic kidney disease ([facility]), patient to schedule visit as per follow [...] IMPRESSION: 1. Osteoarthritis of the bilateral shoulders Criminal Justice Social Worker: JOHNSON Transcribe Date/Time: Nov 10 2024 5:27P [...] visit. Allergies: Atorvastatin, Dust, Jardiance [Empagliflozin], Mold, Pbdamsf-Deu-Tol Reductase Inhibitors, and Victoza [Liraglutide] ROS: General (negative for fatigue, malaise, weight loss/gain) HEENT (negative for headache, earache, recent vision changes, sinus pain, sore throat) Respiratory (no recent shortness of breath, hemoptysis) CV (negative for chest tightness, palpitations) Musculoskeletal (see HPI) Psych (no depression, anxiety) This note was partially generated using Bandspeed voice recognition system, and there may be some incorrect words, spellings, and punctuation that were not noted in checking the note before saving. HENRIQUE Glass Observed: 02/07/2025 1:00 PM Status: COMPLETED Source: [facility] Office Visit ([facility]) KAHLILCHLOE ([id number]) 1950 F Date Time Provider Department 02/07/25 1:00 PM KRISTIN BYRNE During your visit today, we recorded the following information about you: Maggy Piazrro MA 02/07/2025 2:33 PM Signed Patient presents [...] PA-C Department of Orthopaedics Orthopaedics [address] [facility] [address] Dept: [phone] Dept February 07, 2025 CHIEF COMPLAINT: New [...] hyperglycemia, with long-term current use of insulin ([facility]) N18.31 Stage 3a chronic kidney disease (HCC) [...] IMPRESSION: 1. Osteoarthritis of the bilateral shoulders Criminal Justice Social Worker: JOHNSON Transcribe Date/Time: Nov 10 2024 5:27P [...] visit. Allergies: Atorvastatin, Dust, Jardiance [Empagliflozin], Mold, Wnnkmnd-Dvd-Nwu Reductase Inhibitors, and Victoza [Liraglutide] ROS: General (negative for fatigue, malaise, weight loss/gain) HEENT (negative for headache, earache, recent vision changes, sinus pain, sore throat) Respiratory (no recent shortness of breath, hemoptysis) CV (negative for chest tightness, palpitations) Musculoskeletal (see HPI) Psych (no depression, anxiety) This note was partially generated using Bandspeed voice recognition system, and there may be some incorrect words, spellings, and punctuation that were not noted in checking the note before saving. Kristin Byrne PA-C Referring Provider: MICHELLE CEBALLOS [[id number]] Allergies As of Date: 02/07/2025 Noted Allergy Reaction ATORVASTATIN 11/08/2024 17 - Myalgia Comments: Craps in all muscles DUST 09/26/2015 3 - Cough JARDIANCE (EMPAGLIFLOZIN) 01/27/2018 14 - Other: See Comments Comments: Became suicidal MOLD 03/19/2016 12 - Shortness of Breath HTPBLPA-PYD-JJV REDUCTASE INHIBIT*04/04/2015 17 - Myalgia VICTOZA (LIRAGLUTIDE) 01/27/2018 14 - Other: See Comments Comments: Thinks she had thyroid issues from it. Date Reviewed: 02/07/2025 Reviewed by: Maggy Pizarro MA - Fully Assessed Reason for Visit: New [[id number]] Pain [78] Pain [78] Cmt: Referred by Amy Ceballos New [[id number]] Cmt: Referred by Amy Ceballos Visit Diagnoses:Bilateral shoulder pain, unspecified chronicity [M25.511, M25.512] Type 2 diabetes mellitus with hyperglycemia, with long-term current use of insulin (HCC) [E11.65, Z79.4] Stage 3a chronic kidney disease (HCC) [N18.31] Order(s):CONSULT PANEL TO ORTHOPAEDICS [[id number]] Order #: [id number]: 1 Prescriptions as of 02/07/2025 - tirzepatide [...] Observed: 02/07/2025 12:55 PM Status: COMPLETED Source: [facility] HNO ID: [id number] Author: MAGGY PIZARRO MA Service: ? Author Type: Chain Mender Type: Progress Notes Filed: 02/07/2025 14:33 Note [...] Observed: 01/12/2025 12:00 AM Status: COMPLETED Source: [facility] Telephone ([facility]) KAHLILCHLOE Wilma ([id number]) 1950 F Date Time Provider Department 01/12/25 MICHELLE CEBALLOS [employer] [facility] [facility] [employer] During your visit today, we recorded the following information about you: Danii Amanda LPN 01/12/2025 11:39 AM Signed Alyse UGNN sends fax with comment below: Insurance pays for this twice per 365 days then PA is required. [facility] [place] Uyen Clemens MA 01/12/2025 11:43 AM Signed [...] MOLD 03/19/2016 12 - Shortness of Breath FECKAEQ-MVG-ZWZ REDUCTASE INHIBIT*04/04/2015 17 - Myalgia VICTOZA (LIRAGLUTIDE) [...] Observed: 12/06/2024 2:17 PM Status: COMPLETED Source: [facility] HNO ID: [id number] Author: VIVEK LAM RPh Service: ? Author [...] Observed: 12/06/2024 12:00 AM Status: COMPLETED Source: [facility] Patient Outreach (PMSTOW) CHLOE GUILLORY ([id number]) 1950 F Date Time Provider Department 12/06/24 [...] MOLD 03/19/2016 12 - Shortness of Breath DJHQTQL-NQO-UED REDUCTASE INHIBIT*04/04/2015 17 - Myalgia VICTOZA (LIRAGLUTIDE) [...] Observed: 12/02/2024 2:01 PM Status: COMPLETED Source: [facility] HNO ID: [id number] Author: OPHELIA VILLATORO MA Service: ? Author Type: Chain Mender Type: Progress Notes Filed: 12/02/2024 14:03 Note [...] Observed: 12/01/2024 1:54 PM Status: COMPLETED Source: [facility] HNO ID: [id number] Author: OPHELIA VILLATORO MA Service: ? Author Type: Chain Mender Type: Progress Notes Filed: 12/01/2024 13:58 Note Text: POPULATION HEALTH NAVIGATION OUTREACH Action/FYI Left message for patient to call back. Reason for Outreach Care Gap/HCC or Scheduling Wellness Visits Care Gaps due: Colorectal Cancer Screening Patient Contacted: Unable or unnecessary to reach patient: Left message Navigation Signature: Ophelia Villatoro MA December 01, 2024 1:55 PM CHERI Observed: 12/01/2024 12:00 AM Status: COMPLETED Source: [facility] Patient Outreach (NETNAV) CHLOE GUILLORY ([id number]) 1950 F Date Time Provider Department 12/01/24 [...] MOLD 03/19/2016 12 - Shortness of Breath OHPZSGH-XKX-LAL REDUCTASE INHIBIT*04/04/2015 17 - Myalgia VICTOZA (LIRAGLUTIDE) [...] 10:25 AM Status: F Source: [facility] Comment: Specimen Type : BLOOD SPECIMEN Ordering Facility: [facility] Address: [address] [place] [address] TYPE CODE TESTS RESULT OUT OF RANGE REFERENCE UNITS LAB 4548-4(LOINC) HbA1c MFr Bld 8.6 High 4.3-5.6 % Result Comment: [place] Naheed betes Association guidelines indicate that patients with HgbA1c in the range 5.7-6.4% are at increased risk for development of diabetes, and intervention by lifestyle modification may be beneficial. HgbA1c greater or equal to 6.5% is considered diagnostic of diabetes. LAB 21681-4(LOINC) Est. average glucose Bld gHb Est-mCnc 200 mg/dL Result Comment: eAG: (Estima vance average glucose) is a calculated value from HgbA1c and is accounts payable representative of the average blood glucose level in the last 2-3 month period. Performed By: #### 93246-3 # ### [facility] CLIA [id number] [address] [place] [address] [place] CBC W AUTO DIFF BLD Collected: 11/09/2024 10:25 AM S tatus: F Source: [facility] Comment: Specimen Type : BLOOD SPECIMEN Ordering Facility: [facility] Address: [address] [place], [place] [address] TYPE CODE TESTS RESULT OUT OF RANGE REFERENCE UNITS LAB 6690-2(LOINC) WBC # Bld Auto 7.08 3.70-11.00 k/uL LAB 789-8(LOINC) RBC # Bld Auto 3.91 3.90-5.20 m/ uL LAB 718-7(LOINC) Hgb Bld-mCnc 10.8 Low 11.5-15.5 g/dL LAB 4544-3(LOINC) Hct VFr Bld Auto 34.6 Low 36.0-46.0 % LAB 787-2(LOINC) MCV RBC Auto 88.5 80.0-100.0 fL LAB 785-6([facility]) MCH RBC Qn Auto 27.6 26.0-34.0 p g LAB 786-4([facility]) MCHC RBC Auto-mCnc 31.2 30.5-36.0 g/dL LAB 22510-6([facility]) RDW RBC-Rto 13.9 11.5-15.0 % LAB 777-3([facility]) Platelet # Bld Auto 352 150-400 k/uL LAB 47466-4([facility]) PMV Bld Auto 9.8 9.0-12.7 fL LAB 770-8([facility]) Neutrophils/leuk NFr Bld Auto 41.9 % LAB 751-8([facility]) Neutrophils # Bld Auto 2.96 1.45-7.50 k/uL LAB 736-9([facility]) Lymphocytes/leuk NFr Bld Auto 42.9 % LAB 731-0([facility]) Lymphocytes # Bld Auto 3.04 1.00-4.00 k/uL LAB 5905-5([facility]) Monocytes/leuk NFr Bld Auto 7.6 % LAB 742-7([facility]) Monocytes # Bld Auto 0.54 <0.87 k/uL LAB 713-8([facility]) Eosinophil/leuk NFr Bld Auto 6.5 % LAB 711-2([facility]) Eosinophil # Bld Auto 0.46 High <0.46 k/uL LAB 706-2([facility]) Basophils/leuk NFr Bld Auto 0.8 % LAB 704-7([facility]) Basophils # Bld Auto 0.06 <0.11 k/uL LAB 53189-4([facility]) Imm Granulocytes/pablito k NFr Bld Auto 0.3 % LAB 98501-6([facility]) Imm Granulocytes # Bld Auto <0.03 <0.10 k/uL LAB 36070-7([facility]) nRBC/100 WBC Bld-Rto 0.0 /100 WBC LAB 771-6([facility]) nRBC # Bld Auto <0.01 <0.01 k/u L LAB 05924-8([facility]) Differential method Bld Auto Performed By: #### 33749-2 # ### [facility] CLIA [id number] [address] [facility] [place] [address] [place] BAS METAB 2000 PNL SERPL Collected: 07/2025 10:25 AM Status: F Source: [facility] Order Comment: Specimen Type : BLOOD SPECIMEN Ordering Facility: [facility] Address: [address] [place] [address] TYPE CODE TESTS RESULT OUT OF RANGE REFERENCE UNITS LAB 2345-7(LOINC) Glucose SerPl-mCnc 153 High 74-99 mg/dL Result Comment: The [place] Diabetes Association (ADA) provides guidance for cutoff [...] Standards of Medical Care in Diabetes 2016, [place] Diabetes Association. Diabetes Care. 2016.39(Suppl 1). LAB 3094-0(LOINC) BUN SerPl-mCnc 22 High 7-21 mg/ dL LAB 2160-0(LOINC) Creat SerPl-mCnc 1.06 High 0.58-0.96 mg/dL LAB 2951-2(LOINC) Sodium SerPl-sCnc 143 136-144 mmol/L LAB 2823-3(LOINC) Potassium SerPl-sCnc 4.4 3.7-5.1 mmol/L LAB 2075-0(LOINC) Chloride SerPl-sCnc 104 98-107 mmol/L LAB 2028-9(LOINC) CO2 SerPl-sCnc 28 22-30 mmo l/L LAB 35167-2(LOINC) Anion Gap SerPl-sCnc 11 8-15 mmol/L LAB 31149-9(LOINC) Calcium SerPl-mCnc 9.5 8.5-10.2 mg/dL LAB 30561-5(LOINC) Creatinine + eGFR Pnl SerPlBld 56 Low [...] #### 3016-3, 2 4321-2, , 2132-05 #### [facility] CLIA [id number] [address] [place] [address] [place] MAGNESIUM SERPL-MCNC Collected: 025 10:25 AM Status: F Source: [facility] Comment: Specimen Type : BLOOD SPECIMEN Ordering Facility: [facility] Address: [address] [place] [address] TYPE CODE TESTS RESULT OUT OF RANGE REFERENCE UNITS LAB 29411-5(LOINC) Magnesium SerPl-mCnc 1.6 Low 1.7-2.3 mg/dL Performed By: #### 3016-3, 2 4320-2, , 2132-05 #### [facility] CLIA [id number] [address] [place] [address] [place] VIT B12 SERPL-MCNC Collected: 5 10:25 AM Status: F Source: [facility] Order Comment: Specimen Type : BLOOD SPECIMEN Ordering Facility: [facility] Address: [address] [place] [address] TYPE CODE TESTS RESULT OUT OF RANGE REFERENCE UNITS LAB 2131-9(LOINC) Vit B12 SerPl-mCnc 223 Low 232-1245 pg/mL Performed By: #### 3016-3, 2 4320-2, , 2132-05 #### [facility] CLIA [id number] [address] [place] [address] [place] TSH SERPL-ACNC Collected: 5 10:25 AM Status: F Source: [facility] Order Comment: Specimen Type : BLOOD SPECIMEN Ordering Facility: [facility] Address: [address] [place] [address] TYPE CODE TESTS RESULT OUT OF RANGE REFERENCE UNITS LAB 3016-3(LOINC) TSH SerPl-aCnc 2.570 0.270-4.200 mIU/L Performed By: #### 3016-3, 2 4321-2, 70819-2, 2132-9 #### [facility] CLIA [id number] [address] [place] [address] XR SHLDR >/=3V AP/KILEY AP/OTH R LT Observed: 11/08/2024 2:23 PM Status: F Source: [facility] * * *Final Report* * * [...] IMPRESSION: 1. Osteoarthritis of the bilateral shoulders Criminal Justice Social Worker: JOHNSON Transcribe Date/Time: Nov 10 2024 5:27P Dictated by : WILL HALE MD This examination was interpreted and the report reviewed and electronically signed by: WILL HALE MD on Nov 10 2024 5:28PM EST [id number] XR SHLDR >/=3V AP/KILEY AP/OTH R RT Observed: 11/08/2024 2:23 PM Status: F Source: [facility] * * *Final Report* * * [...] IMPRESSION: 1. Osteoarthritis of the bilateral shoulders Criminal Justice Social Worker: [facility] Transcribe Date/Time: Nov 10 2024 5:27P Dictated by : WILL HALE MD This examination was interpreted and the report reviewed and electronically signed by: WILL HALE MD on Nov 10 2024 5:28PM EST [id number] PROGRESS Observed: 11/08/2024 1:50 PM Status: COMPLETED Source: [facility] HNO ID: [id number] Author: SHAHRIAR OROZCO RT(R) Service: Radiology Author [...] PATIENT PRESENTS WITH AN IMPLANTABLE OR ATTACHED HAZARDOUS MATERIAL TECHNICIAN: No RADIOLOGY DEPARTMENT: General X-ray: Exam(s) Completed: Upper Extremity X-Ray(s): Shoulder, AP / TRUE AP / AXILLARY bilateral PERIPHERAL IV DATA: Not applicable SIGNED BY: RT Bishop(R) November 08, 2024 1:57 PM PROGRESS Observed: 11/08/2024 12:57 PM Status: COMPLETED Source: [facility] HNO ID: [id number] Author: MICHELLE CEBALLOS APRN.CNP Service: ? Author [...] General (Family Medicine) Myla Mcadams APRN.CNP as Administrative Assistant Front Desk (Family Medicine) Michelle Ceballos APRN.CNP as Administrative Assistant Front Desk (Family Medicine) Concerns today: Sputum- nasal drainage, [...] Disease, With Long-Term Current Use of Insulin ([facility]) - 04/04/2015 Comment: Dx: age 51. On [...] 05/07/2022 KAM (obstructive sleep apnea) 09/26/2015 [facility] Other hyperlipidemia 03/23/2019 RLS (restless legs syndrome) [...] as needed for worsening/no improvement. Michelle Ceballos, CLOTH COVERED HELMET PULLER.ASSISTANT FOOD SERVICE MANAGER Follow Up Plans: 12 m Chloe Guillory [...] Observed: 11/08/2024 12:40 PM Status: COMPLETED Source: [facility] KAHLILCHLOE Wilma ([id number]) 1950 F Date Time Provider Department 11/08/24 12:40 PM [facility] During your visit today, we recorded the following information about you: Temperature Pulse Blood pressure Weight 97.2 degrees 73/minute 124/66 105.2 kg Michelle Ceballos, CLOTH COVERED HELMET PULLER.ASSISTANT FOOD SERVICE MANAGER 11/23/2024 2:57 PM Addendum Chief Reason For [...] General (Family Medicine) Myla Mcadams APRN.CNP as Administrative Assistant Front Desk (Family Medicine) Michelle Ceballos APRN.CNP as Administrative Assistant Front Desk (Family Medicine) Concerns today: Sputum- nasal drainage, too for 4-6 weeks HPI Both chills and sweating Active Problems ACTIVE PROBLEM LIST Chronic Pain of Both Shoulders - 07/29/2022 Stable Angina Pectoris ([facility]) - 06/26/2020 Class 3 Severe Obesity With Body Mass Index (Bmi) of 40.0 to 44.9 in Adult ([facility]) - 03/23/2019 Edema - 03/23/2019 Other Hyperlipidemia - 03/23/2019 Rls (Restless Legs Syndrome) - 02/15/2019 Insomnia - 03/19/2016 KAM (obstructive sleep apnea) CPAP intolerant - 09/26/2015 Moderate Persistent Asthma Without Complication - 07/11/2015 Comment: 07/07/15 Methacholine Inhalation Challenge: 35% drop FEV1 at 2.5 mg/mL. Type 2 Diabetes Mellitus With Stage 3a Chronic Kidney Disease, With Long-Term Current Use of Insulin ([facility]) - 04/04/2015 Comment: Dx: age 51. On [...] 05/07/2022 KAM (obstructive sleep apnea) 09/26/2015 DME: [facility] Other hyperlipidemia 03/23/2019 RLS (restless legs syndrome) 02/15/2019 Stable angina pectoris (HCC) 06/26/2020 Type 2 diabetes mellitus with stage 3 chronic kidney disease, with long-term current use of insulin ([facility]) 04/04/2015 Dx: age 51. On metformin and [...] review all the medicines you take, even sqpz-fry-xahaiae medicines. As you get older, the way [...] you have certain medical conditions. Michelle Ceballos APRN.ASSISTANT FOOD SERVICE MANAGER 11/08/2024 1:35 PM Signed Addended by: MICHELLE CEBALLOS on: 11/08/2024 01:35 PM Modules accepted: Orders Referring Provider: SELF [200] Allergies As of Date: 11/08/2024 Noted Allergy Reaction ATORVASTATIN 11/08/2024 17 - Myalgia Comments: Craps in all muscles DUST 09/26/2015 3 - Cough JARDIANCE (EMPAGLIFLOZIN) 01/27/2018 14 - Other: See Comments Comments: Became suicidal MOLD 03/19/2016 12 - Shortness of Breath IAAIZEZ-WAQ-IHC REDUCTASE INHIBIT*04/04/2015 17 - Myalgia VICTOZA (LIRAGLUTIDE) [...] (BMI) of 40.0 to 44.9 in adult ([facility]) [E66.813, E66.01, Z68.41] Order(s):metFORMIN (GLUCOPHAGE) 500 mg tabletTake 2 tablets by mouth two times a day with meals.Disp: 120 tabletRfl: 11 COLOGUARD [SQCOLGRD] Order #: [id number] HEMOGLOBIN A1C [IVCRF2O] Order #: [id number] FUTURE VITAMIN B12 [SQB12] Order #: [id number] FUTURE MAGNESIUM [SQMG1] Order #: [id number] FUTURE BASIC METABOLIC PANEL [SQBMP] Order #: [id number] FUTURE COMPLETE BLOOD COUNT AND DIFFERENTIAL [SQCBCDIF] Order #: [id number] FUTURE COMPLETE BLOOD COUNT [SQCBC] Order #: [id number] FUTURE HEMOGLOBIN A1C [ICSWG3C] Order #: [id number] FUTURE ALBUMIN/CREATININE RATIO, URINE [SQUACR] Order #: [id number] FUTURE THYROID STIMULATING HORMONE [SQTSH] Order #: [id number] FUTURE COMPREHENSIVE METABOLIC PANEL [SQCMP] Order #: [id number] FUTURE LIPID PANEL BASIC [SQLIPB] Order #: [id number] FUTURE [] doxycycline (VIBRA-TABS) 100 mg tabletTake [...] 3 THYROID STIMULATING HORMONE [SQTSH] Order #: [id number] FUTURE XR SHOULDER LIMITED 2V AP/TRUE AP LEFT [3239751] Order #: [id number] FUTURE XR SHOULDER GENERAL 3V OR MORE AP/TRUE AP/OTHER LEFT [6773799] Order #: [id number] FUTURE XR SHOULDER GENERAL 3V OR MORE AP/TRUE AP/OTHER RIGHT [7056934] Order #: [id number] FUTURE CONSULT PANEL TO ORTHOPAEDICS [747898] Order #: [id number]: 1 FUTURE Prescriptions as of 11/23/2024 - [...] review all the medicines you take, even udlf-lar-blxclyw medicines. As you get older, the way [...] for Encounter Date Provider Department Center 11/08/2024 [id number]-DFXJPUSHANA CEBALLOS*BETTYE Godinezoster [facility] Encounter Status:Closed by MICHELLE CEBALLOS on 11/08/24 CNPN Observed: 09/20/2024 12:00 AM Status: COMPLETED Source: [facility] Telephone (FAMPWS) CHLOE GUILLORY ([id number]) 1950 F Date Time Provider Department 09/20/24 CULLEN FRANCOIS During your visit today, we recorded the following information about you: Shana Hoskins 09/20/2024 9:08 AM Signed Chloe is calling Cullen Francois PA-C today with concern regarding insulin problem. The patient is using insulin vials, she has no needles/syringes to administer. Please send a prescription to: [facility] in [place] today. Please call the patient once this is completed. Patient has been identified by name and birthdate. Duration of symptoms: N/A Person calling: self Call patient at: on cell [phone] (home) Was an appointment scheduled: No Closing statement: Results or non-symptom based questions: Thank you for calling [facility], your call will be returned within [...] Date Reviewed: 05/10/2024 Reviewed by: Michelle Ceballos APRN.ASSISTANT FOOD SERVICE MANAGER - Fully Assessed Reason for Visit: Medication Problem [65] Cmt: Using insulin vials, she has no needles/syringes to administer Primary Visit Diagnosis:Type 2 diabetes mellitus with stage 3a chronic kidney disease, with long-term current use of insulin ([facility]) [E11.22, N18.31, Z79.4] Order(s):Insulin Syringe-Needle U-100 (INSULIN [...] * 30 E* 11 09/20/2024 09/20/2025 [facility] Each once daily. Encounter Status:Closed by MAYTE REINA on 09/20/24 CHERI Observed: 08/11/2024 12:00 AM Status: COMPLETED Source: [facility] Patient Outreach (INTMMN) CHLOE GUILLORY ([id number]) 1950 F Date Time Provider Department 08/11/24 [...] Date Reviewed: 05/10/2024 Reviewed by: Michelle Ceballos APRN.ASSISTANT FOOD SERVICE MANAGER - Fully Assessed Visit Diagnosis:Encounter for screening mammogram for breast cancer [Z12.31] Order(s):[facility] SCREENING W HAILEE [[id number]] Order #: [id number] FUTURE Prescriptions as of 08/16/2024 - atorvastatin [...] both shoulders [M25.511, G89.29*07/29/2022 Encounter Status:Closed by AMLICAR ANNE on 08/16/24 PROGRESS Observed: 08/10/2024 10:58 AM Status: COMPLETED Source: [facility] HNO ID: [id number] Author: MELIZA SHU MA Service: ? Author Type: Chain Mender Type: Progress Notes Filed: 08/10/2024 11:00 Note Text: POPULATION HEALTH NAVIGATION OUTREACH Action/FYI Returning patients call as patient left a detail message on my voicemail in regards to initial outreach Arpan [facility]ings[place] Discuss/Due for: 2024 Medicare Wellness, Colorectal Cancer Screening, Mammogram, MyChart Activation HCC Score : .41942 Outcome: 1st attempt - Left Message Reason for Outreach Returned Call/MyChart Patient Contacted: Unable or unnecessary to reach patient: Left message Navigation Signature: Meliza Suh MA August 10, 2024 10:58 AM PROGRESS Observed: 08/09/2024 9:11 AM Status: COMPLETED Source: [facility] HNO ID: [id number] Author: MELIZA SUH MA Service: ? Author Type: Chain Mender Type: Progress Notes Filed: 08/09/2024 09:22 Note Text: POPULATION HEALTH NAVIGATION OUTREACH Action/FYI [employer] Discuss/Due for: 2024 Medicare Wellness, Colorectal Cancer Screening, Mammogram, MyChart Activation HCC Score : .65933 Outcome: 1st attempt - Left Message 2nd [...] Observed: 08/09/2024 12:00 AM Status: COMPLETED Source: [facility] Patient Outreach (NETNAV) KAHLILCHLOE ([id number]) 1950 F Date Time Provider Department 08/09/24 MELIZA SUH During your visit today, we recorded the following information about you: Meliza Suh MA 08/09/2024 9:22 AM Signed POPULATION HEALTH NAVIGATION OUTREACH Action/FYI Arpan [place] Discuss/Due for: 2024 Medicare Wellness, Colorectal Cancer Screening, Mammogram, MyChart Activation HCC Score : .75894 Outcome: 1st attempt - Left Message 2nd [...] Screening, Mammogram, MyChart Activation HCC Score : .78263 Outcome: 1st attempt - Left Message Reason [...] Date Reviewed: 05/10/2024 Reviewed by: Michelle Ceballos APRN.ASSISTANT FOOD SERVICE MANAGER - Fully Assessed Reason for Visit: Population [...] / CODE REACTION SEVERITY SOURCE 11/08/2024 DRUG INGREDI/36733 1003(SNOMED CT) ATORVASTATIN Myalgia [facility] 01/27/2018 DRUG INGREDI/04534 1003(SNOMED CT) EMPAGLIFLOZIN OTHER: SEE C [facility] 01/27/2018 DRUG INGREDI/64369 1003(SNOMED CT) LIRAGLUTIDE OTHER: SEE [facility] 03/19/2016 DRUG INGREDI/57401 1003(SNOMED CT) MOLD SHORTNESS OF [facility] 09/26/2015 Environ/70991 4006(SNOMED CT) DUST COUGH [facility] 04/04/2015 Drug Class/6882454 03(SNOMED CT) CIQZGIO-[id number] REDUCTASE INHIBITORS Myalgia [facility] ENCOUNTERS ADMIT/DISCHARGE ACCOUNT NUMBER ADMITTING ENCOUNTER CLASS LOC ATION SOURCE 05/18/2025/ 5 [id number] Ambulatory [facility] HospitalBuild ing:WOFM [facility] 05/10/2025 [id number] Ambulatory [facility] HospitalBuild ing:WORG [facility] 05/10/2025/ 5 [id number] Ambulatory [facility] HospitalBuild ing:WOFM [facility] 04/29/2025/ 5 [id number] Ambulatory [facility] HospitalBuild ing:WOL2 [facility] 04/18/2025/ 5 [id number] Ambulatory [facility] HospitalBuild ing:WOOR [facility] 04/12/2025/ 5 [id number] Ambulatory [facility] HospitalBuild ing:WOCA [facility] 04/01/2025/ 5 [id number] Ambulatory [facility] HospitalBuild ing:MMCA [facility] 03/14/2025/ 5 [id number] Ambulatory [facility] HospitalBuild ing:WOLB [facility] 02/11/2025/ 5 [id number] Ambulatory [facility] HospitalBuild ing:WOLB [facility] 02/11/2025/ 5 [id number] Ambulatory [facility] HospitalBuild ing:WOFM [facility] 02/07/2025/ 5 [id number] Ambulatory [facility] HospitalBuild ing:WOOSWALD [facility] 11/09/2024/ 5 [id number] Ambulatory [facility] HospitalBuild ing:WOLB [facility] 11/08/2024/ 5 [id number] [facility] [id number] [facility] ENCOUNTER GUARANTOR PAYER SUBSCRIBER SOURCE 05/18/2025 Primary Insurance:AET MEDICARE HMOPolicy Number: [id number] Date:1883-00-58Ehxu Name:Ginette SOLORIOGEORGIEOB: [id number] [address] [address] [facility] 05/10/2025 Primary Insurance:[employer]ET[employer] MEDICARE HMOPolicy Number: [id number] Date:5493-91-65Mfnw Name:Ginette SOLORIOGEORGIEOB: [id number] [address] [address] [facility] 05/10/2025 Primary Insurance:[employer]ET[employer] MEDICARE HMOPolicy Number: [id number] Date:2260-02-65Ksmh Name:Ginette SOLORIOADDOB: [id number], [place] [address] [facility] 04/29/2025 Primary Insurance:AET[employer] MEDICARE HMOPolicy Number: [id number] Date:6904-03-70Fvvl Name:Ginette SOLORIOGEORGIEOB: [id number], [place] [address] [facility] 04/18/2025 Primary Insurance:[employer]ET[employer] MEDICARE HMOPolicy Number: [id number] Date:7417-70-87Dsbc Name:Ginette Dillon RAEGANOB: [id number], [place] [address] [facility] 04/12/2025 Primary Insurance:AETNA MEDICARE HMOPolicy Number: [id number] Date:5251-89-23Utci Name:Ginette Dillon RAEGANOB: [id number], [place] [address] [facility] 04/01/2025 Primary Insurance:AET[employer] MEDICARE HMOPolicy Number: [id number] Date:0349-44-23Rwlj Name:Ginette SOLORIOGEORGIEOB: [id number], [place] [address] [facility] 03/14/2025 Primary Insurance:AETNA MEDICARE HMOPolicy Number: [id number] Date:0676-69-96Haqa Name:Ginette Dillon LYNDSEYADDOB: [id number] [place] [address] [facility] 02/11/2025 Primary Insurance:AETNA MEDICARE HMOPolicy Number: [id number] Date:7756-54-26Bioa Name:Ginette Dillon LYNDSEYADDOB: [id number], [place] [address] [facility] 02/11/2025 Primary Insurance:[employer]ET[employer] MEDICARE HMOPolicy Number: [id number] Date:0923-31-87Ngzb Name:Ginette Dillon RAEGANOB: [id number] [place] [address] [facility] 02/07/2025 Primary Insurance:[employer]ET[employer] MEDICARE HMOPolicy Number: [id number] Date:0984-28-80Hhef Name:Ginette Dillon RAEGANOB: [id number], [place] [address] [facility] 11/09/2024 Primary Insurance:AETNA MEDICARE HMOPolicy Number: [id number] Date:2447-05-80Szgz Name:Ginette Dillon RAEGANOB: [id number] [place] [address] [facility] 11/08/2024 Primary Insurance:AETNA MEDICARE HMOPolicy Number: [id number] Date:1086-99-41Vusj Name:Ginette Dillon RAEGANOB: [id number] [place] [address] [facility] 11/08/2024 Primary Insurance:[employer]ET[employer] MEDICARE HMOPolicy Number: [id number] Date:4688-62-52Ztje Name:Ginette Dillon RAEGANOB: [id number], [place] [address] [facility]
[2025-05-30] VITALS (7 sets, daily range): BP systolic 96–135; BP diastolic 49–75; PULSE 71–93; RESP 14–20; TEMP 36.4–37.1; O2SAT 96–100; BMI 39.6; BMI 40.2
--- NOTE | 2025-05-30 16:29 | EDS_ITS ---
HPI History of Present Illness Chief Complaint: General Illness Narrative Narrative: Patient is a 75-year-old female presenting to the emergency department for fatigue, jaundice and shortness of breath that started on Friday. Patient was seen 9 days ago for epigastric abdominal pain. Patient has a past medical history of thyroid disease, insulin-dependent diabetes, renal disease, hypertension, endometriosis and fibromyalgia. Patient states that since 12 May she has had abdominal discomfort nausea and nonbloody, nonbilious vomiting. Reports that the abdominal pain and vomiting have improved however now she is having dark-colored urine and pale-colored stool as well as becoming jaundiced on Friday. She denies any fever or chills. Denies any chest pain or worsening shortness of breath from baseline she states. She reports a past surgical history of a cholecystectomy and appendectomy. She denies any history of alcohol abuse. Denies any dysuria. [facility] Medical History Wears glasses Post-menopausal History of steroid therapy Thyroid disease Insulin dependent diabetes mellitus Diabetes Arthritis History of renal disease Anemia Restless legs Sleep apnea Shortness of breath on exertion Hoarseness History of stress test Hypertension History of irregular heartbeat Hx of endometriosis Home Medications ?Medication ?Instructions ?Recorded ?Last Taken ?Type albuterol sulfate 90 mcg/actuation 2 puff inhalation Q 6H PRN PRN Sob 03/27/19 Unknown History aerosol inhaler &/Or Wheezing fenofibrate nanocrystallized 145 145 mg PO DAILY hld 0 03/27/19 05/30/25 History mg tablet levothyroxine 50 mcg tablet 50 mcg PO DAILY thyroid 05/30/25 History fluticasone 250 mcg-salmeterol 50 1 inh inhalation BID sob 04/30/22 05/30/25 History mcg/dose blistr powdr for inhalation (Wixela Inhub) olmesartan 20 mg tablet 20 mg PO DAILY bp 04/30/22 0 05/30/25 History biotin 5 mg capsule 5 mg PO DAILY supplement 05/30/25 History cyanocobalamin (vitamin B-12) 1,000 mcg PO DAILY suppl ement 05/30/25 05/30/25 History 1,000 mcg tablet,extended release (Vitamin B-12 ER) diltiazem HCl 360 mg 360 mg PO DAILY heart 05/30/25 History capsule,extended release 24 hr insulin glargine 100 unit/mL 40 unit subcut QHS dm 05/29/25 History subcutaneous solution (Lantus U-100 Insulin) magnesium oxide 400 mg (241.3 mg 400 mg PO BID supplem ent 05/30/25 05/30/25 History magnesium) tablet metformin 500 mg tablet 1,000 mg PO BID dm 05/30/25 05/30/25 History multivitamin (Daily Multi-Vitamin 1 tab PO DAILY suppl ement 05/30/25 05/30/25 History tablet) omeprazole 40 mg capsule,delayed 40 mg PO DAILY gerd 0 05/30/25 05/30/25 History release ondansetron 4 mg disintegrating 4 mg PO Q8H PRN PRN na usea/vomiting 05/30/25 05/23/25 History tablet sitagliptin phosphate 100 mg 100 mg PO DAILY dm 05/30/25 History tablet (Januvia) topiramate 25 mg tablet 25 mg PO BID 05/30/25 Unknow n History trazodone 150 mg tablet 150 mg PO QHS mood 05/30/25 05/29/25 History Allergy/AdvReac Type Severity Reaction Status Date / Time liraglutide (From Victoza) Allergy PT UNSURE Verified 05/30/25 16:18 OF REACTION empagliflozin (From AdvReac Other Verified 05/30/25 16:18 Jardiance) Surgical History History of cardiac catheterization Hx of hysterectomy Hx of tonsillectomy Hx of appendectomy Social History housing: house Smoking Status: Never smoker ROS ROS ED ROS Narrative see HPI EXAM Physical Exam Narrative Exam Narrative: Vital signs: Reviewed General: Alert and oriented x 3. No acute distress HEENT: Head is normocephalic and atraumatic, sinuses nontender, pupils equal round and reactive. Scleral icterus. Nares are patent. Oropharynx and throat exams normal. Neck: Supple without lymphadenopathy nontender Cardiovascular: Regular rate and rhythm, no murmurs. No rubs or gallops. Normal S1 and S2 Respiratory: Clear to auscultation bilaterally. No wheezes, rales, rhonchi Abdominal: Soft and tender to palpation in epigastric region. Normal bowel sounds. No guarding or rebound. Nonsurgical abdomen Extremities: No tenderness. No bruising. Normal range of motion. Normal sensation. Skin: No rash or redness. Jaundiced. Neurological: Cranial nerves II through XII are grossly intact. Normal strength and sensation. Normal cerebellar function The rest of the physical exam is unremarkable Const Vital Signs: 05/30/25 16:18 05/30/25 16:26 05/30/25 17:18 Temperature 98.5 F Temperature Source Oral Pulse Rate 93 71 Respiratory Rate 16 19 H Respiratory Effort Normal Non-Labored Blood Pressure 135/75 H 113/55 L Blood Pressure Mean 95 74 Pulse Ox 96 100 Oxygen Delivery Method Room Air 05/30/25 18:09 05/30/25 19:00 Temperature Temperature Source Pulse Rate 72 77 Respiratory Rate 18 14 Respiratory Effort Blood Pressure 133/59 H 96/49 L Blood Pressure Mean 83 64 Pulse Ox 100 99 Oxygen Delivery Method Room Air Room Air MDM MDM MDM Narrative Medical decision making narrative: Patient is a 75-year-old female presenting to the emergency department for fatigue, jaundice, epigastric abdominal pain, nausea and vomiting. Patient was seen and examined. Vitals are stable. Patient resting bed comfortably no acute distress. Differential includes but is not limited to: Choledocholithiasis, cholangitis, pancreatitis, pancreatic mass CBC with no leukocytosis and chronic anemia of 10.9. CMP with transaminitis and elevated total bilirubin of 20.6. Normal lactate of 1.1. Lipase mildly elevated at 98. Urinalysis with 2+ bacteria, otherwise no evidence of urinary tract infection. There is urine bilirubin and urobilinogen. CT of the abdomen and pelvis shows interval new severe intrahepatic and extrahepatic biliary dilatation with periportal edema. MRCP may be warranted if there is concern for biliary ductal obstruction. Cholangitis is not excluded. Gallbladder ultrasound added on and this shows a possible pancreatic lesion. And redemonstrates findings of above CT. Zosyn was given to cover for possible cholangitis however I think this is likely related to the pancreatic mass causing possible obstruction leading to the lab and imaging findings. Patient and were updated on the lab and imaging findings and need for admission for ERCP. I discussed the patient with Dr. Verdugo, partner marketing intern on-call, who agrees with ERCP. Patient admitted to hospitalist, Dr. Umanzor for further management. Clinical impression Jaundice Transaminitis Elevated total bilirubin Pancreatic mass History & Record Review Discussion w/independent historian: Patient and Significant other Additional record(s) reviewed:: Prior ED visit and Prior labs Lab Data Attestation: I reviewed the patient's lab results. Labs: Laboratory Results - last 24 hr 05/30/25 05/30/25 05/30/25 16:35 16:45 19:49 WBC 6.5 RBC 3.86 L Hgb 10.9 L Hct 32.0 L MCV 82.9 MCH 28.2 MCHC 34.1 RDW Std Deviation 53.1 H RDW Coeff of Tito 18.5 H Plt Count 439 MPV 10.1 Immature Gran % (Auto) 0.800 Neut % (Auto) 55.8 Lymph % (Auto) 29.7 [place] % (Auto) 7.4 Eos % (Auto) 5.1 H Baso % (Auto) 1.2 H Absolute Neuts (auto) 3.6 Absolute Lymphs (auto) 1.93 Nucleated RBC % 0 Sodium 134 Potassium 3.8 Chloride 97 L Carbon Dioxide 22.9 Anion Gap 14 BUN 22 H Creatinine 1.40 H Estim Creat Clear Calc 37.17 L Est GFR (MDRD) Non-Af 39 L BUN/Creatinine Ratio 15.7 Glucose 91 Lactic Acid 1.1 Calcium 9.3 Total Bilirubin 20.60 H* AST 324 H ALT 320 H Alkaline Phosphatase 659 H Total Protein 6.1 Albumin 3.3 L Globulin 2.8 Albumin/Globulin Ratio 1.2 Lipase 98 H Urine Color Yellow Urine Clarity Sl. Cloudy Urine pH 6.0 Ur Specific [place] 1.005 Urine Protein 30 H Urine Glucose (UA) Normal Urine Ketones Negative Urine Occult Blood Negative Urine Nitrite Negative Urine Bilirubin 3 H Urine Urobilinogen 4 H Ur Leukocyte Esterase Negative Urine RBC 0-5 SEEN Urine WBC 0-5 SEEN Ur Squamous Epith Cells 0-5 SEEN Amorphous Sediment 2+ Urine Bacteria 2+ Urine Mucus 0 SEEN Radiography Diagnostic Testing: Clinical Impression(s) from Imaging Studies Gallbladder Ultrasound 05/30/25 17:45 IMPRESSION: Status post cholecystectomy. There is extensive intrahepatic and extrahepatic biliary dilatation. Hepatomegaly and hepatic steatosis. 1.5 cm right hepatic hypoechoic structure. Possible pancreatic lesion measuring 0.9 x 0.9 x 0.6 cm. Reading Location: [facility] Abdomen/Pelvis CT 05/30/25 17:54 IMPRESSION: Interval new severe intrahepatic and extrahepatic biliary dilatation. There is periportal edema. MRCP may be warranted if there is concern for biliary ductal obstruction. Cholangitis is not excluded. Reading Location: [facility] Discharge Plan Disposition Disposition: Acute Care Hospital [facility] Discharge Date/Time: 05/30/25 20:57
[2025-05-30] MEDS: 0.9% Normal Saline (1000mL) 1,000 ML 1000 ML IV ×2 (16:50→20:00)
[2025-05-30 16:59] LABS: Hematocrit 32.0 % (37-47); Hemoglobin 10.9 g/dL (12.0-15.0); Immature Granulocytes Count 0.050 X10^3/uL (0.0-0.0); Mean Corp Hgb Conc 34.1 g/dL (32-36); Mean Corpuscular Volume 82.9 fL (81-99); Mean Platelet Vol. 10.1 fl (6.2-12.0); NRBC Flagged by Analyzer 0 % (0-5); Platelet Count 439 K/mm3 (150-450); RBC Distribution Width CV 18.5 % (11.6-14.6); RBC Distribution Width SD 53.1 fl (35.1-43.9); Red Blood Count 3.86 M/mm3 (4.2-5.4); White Blood Count 6.5 K/mm3 (4.4-11.0)
[2025-05-30 17:40] LABS: Lipase 98 U/L (13-75)
[2025-05-30 17:44] LABS: AST(SGOT) 324 U/L (<=31); Alanine Aminotransfer ALT/SGPT 320 U/L (<=34); Albumin, Serum 3.3 g/dL (3.4-4.8); Alkaline Phosphatase 659 U/L (35-104); Anion Gap 14 (5-15); BUN 22 mg/dL (4-19); BUN/Creat Ratio 15.7 RATIO (10-20); Calcium,Total 9.3 mg/dL (7.6-11.0); Carbon Dioxide 22.9 mmol/L (21.0-32.0); Chloride 97 mmol/L (98-108); Estimated Creatinine Clearance 37.17 ml/min (50-250); Globulin 2.8 g/dL (2.2-4.2); Glucose 91 mg/dL (70-99); Potassium 3.8 mmol/L (3.3-5.1)
--- NOTE | 2025-05-30 17:45 | US_ITS ---
PROCEDURE: GALLBLADDER 05/30/2025 REASON FOR EXAM: TOTAL BILI TECHNIQUE: Procedure Code: USGB Modality: US Procedure: GALLBLADDER COMPARISON: CT from same day. FINDINGS: GALLBLADDER: Surgically removed. COMMON BILE DUCT: Measures 7 mm. There is intrahepatic biliary dilatation. LIVER: Hepatomegaly to 19.6 cm. The liver is echogenic. Dilated intrahepatic biliary ducts. Right hepatic hypoechoic structure measuring 1.5 x 1.5 x 1.5 cm. RIGHT KIDNEY: Normal in size and echogenicity. No mass. No urinary stones. No hydronephrosis. There is cortical thinning. Pancreas: Possible lesion measuring 0.9 x 0.9 x 0.6 cm. US/Gallbladder IMPRESSION: Status post cholecystectomy. There is extensive intrahepatic and extrahepatic biliary dilatation. Hepatomegaly and hepatic steatosis. 1.5 cm right hepatic hypoechoic structure. Possible pancreatic lesion measuring 0.9 x 0.9 x 0.6 cm. Reading Location: [id number]
--- NOTE | 2025-05-30 17:54 | CT_ITS ---
PROCEDURE: ABDOMEN/PELVIS W IV CONT ONLY 05/30/2025 REASON FOR EXAM: EPIGASTRIC ABD PAIN, JAUNDICE TECHNIQUE: Procedure Code: [id number] Modality: CT Procedure: ABDOMEN/PELVIS W IV CONT ONLY Coronal and Sagittal reconstruction series were provided. CONTRAST: 100 mL of Isovue 370 One or more dose reduction techniques were used (e.g., Automated exposure control, adjustment of the mA and/or kV according to patient size, use of iterative reconstruction technique. RADIATION DOSE SUMMARY: DLP: 1181 mGycm COMPARISON: 03/12/22 FINDINGS: Limited sections of the lung bases demonstrate no focal pulmonary mass or consolidations. The liver, spleen, pancreas, and both adrenal glands demonstrate no acute findings. Hepatomegaly to 21.3 cm. Minimal hepatic steatosis. The gallbladder is surgically removed. There is interval new intrahepatic and extrahepatic biliary dilation and periportal edema. Tiny hiatal hernia; otherwise stomach is unremarkable. The small bowel loops are not dilated. The appendix is not clearly identified, although there are no secondary signs of appendicitis. No colonic obstruction. There is no free air or significant free fluid. 7 mm hypodensity within the left kidney too small to accurately characterize. No hydronephrosis. No obstructive uropathy. The urinary bladder is partially distended. The pelvic structures are intact. There is no solid pelvic mass. Uterus is surgically removed. No significant lymphadenopathy. The aorta and IVC demonstrate no acute findings. Minimal atherosclerosis of the abdominal vasculature. Visualized osseous structures demonstrate no acute abnormality. Tiny fat containing umbilical hernia. CT/Abdomen/Pelvis W IV Cont ONLY IMPRESSION: Interval new severe intrahepatic and extrahepatic biliary dilatation. There is periportal edema. MRCP may be warranted if there is concern for biliary ductal obstruction. Cholangitis is not excluded. Reading Location: [id number]
[2025-05-30 19:56] LABS: Mucous, Urine 0 SEEN /hpf (<or=2+)
[2025-05-30] MEDS: Piperacil/Tazobactam 3.375 GM in 0.9% Normal Saline (50mL MB+) 50 ML IV (20:00)
--- NOTE | 2025-05-30 20:04 | PCM.HP.STD ---
HPI - General General Date of Admission: 05/30/25 Date of Service: 05/30/25 Chief Complaint: Fatigue and jaundice HPI Narrative LENI ZAMBRANO, is a 75 F who presented to [facility] ED on 05/30/2025 with fatigue and jaundice. Patient lives at home with her . She was recently seen here in the ED on 05/21 for epigastric abdominal pain that she states began in early to mid May. She was treated with a GI cocktail and IV Pepcid during that visit with improvement in her pain and ED physician suspected that her pain was due to acid reflux. Sucralfate was added to her home medication regimen. Patient notes improvement in her epigastric pain since then but she has now began to have dark-colored urine and pale-colored stools for the past several days. Her noted that she started to become jaundiced on Friday as well. For these reason she came to the ED today for further evaluation. In the ED her CMP was notable for total bilirubin 20.60, AST 324, ALT 320, alk phos 659. Notably LFTs were not taken during the recent ED visit on 05/21, and no LFTs are otherwise available since 2021. CT abdomen pelvis showed new severe intrahepatic and extrahepatic biliary dilation with periportal edema, with prior cholecystectomy noted. Gallbladder ultrasound showed similar findings with concern for possible pancreatic lesion measuring 0.9 x 0.9 x 0.6 cm. ED physician discussed with Dr. Verdugo to recommended admission with plan for ERCP tomorrow. Hospitalist was not contacted for admission. I saw the patient at bedside in the ED, was present. Patient was sitting comfortably in bedside chair, conversing normally, in no acute distress. She denies any acute abdominal pain or discomfort. Notes that she generally has felt more fatigued and weaker than her normal since the beginning of this month. Prior to that she states that she was in her normal state of health. She denies any weight loss. No other acute concerns currently. Will be admitted for further management. [facility] Medical History Wears glasses Post-menopausal History of steroid therapy Thyroid disease Insulin dependent diabetes mellitus Diabetes Arthritis History of renal disease Anemia Restless legs Sleep apnea Shortness of breath on exertion Hoarseness History of stress test Hypertension History of irregular heartbeat Hx of endometriosis Home Medications ?Medication ?Instructions ?Recorded ?Last Taken ?Type albuterol sulfate 90 mcg/actuation 2 puff inhalation Q6H PRN PRN Sob 03/27/19 Unknown History aerosol inhaler &/Or Wheezing fenofibrate nanocrystallized 145 145 mg PO DAILY hld 03/27/19 05/30/25 History mg tablet levothyroxine 50 mcg tablet 50 mcg PO DAILY thyroid 03/27/19 05/30/25 History fluticasone 250 mcg-salmeterol 50 1 inh inhalation BID sob 04/30/22 05/30/25 History mcg/dose blistr powdr for inhalation (Nuhaxela Inhub) olmesartan 20 mg tablet 20 mg PO DAILY bp 04/30/22 05/30/25 History biotin 5 mg capsule 5 mg PO DAILY supplement 05/30/25 05/30/25 History cyanocobalamin (vitamin B-12) 1,000 mcg PO DAILY supplement 05/30/25 05/30/25 History 1,000 mcg tablet,extended release (Vitamin B-12 ER) diltiazem HCl 360 mg 360 mg PO DAILY heart 05/30/25 05/30/25 History capsule,extended release 24 hr insulin glargine 100 unit/mL 40 unit subcut QHS dm 05/30/25 05/29/25 History subcutaneous solution (Lantus U-100 Insulin) magnesium oxide 400 mg (241.3 mg 400 mg PO BID supplement 05/30/25 05/30/25 History magnesium) tablet metformin 500 mg tablet 1,000 mg PO BID dm 05/30/25 05/30/25 History multivitamin (Daily Multi-Vitamin 1 tab PO DAILY supplement 05/30/25 05/30/25 History tablet) omeprazole 40 mg capsule,delayed 40 mg PO DAILY gerd 05/30/25 05/30/25 History release ondansetron 4 mg disintegrating 4 mg PO Q8H PRN PRN nausea/vomiting 05/30/25 05/23/25 History tablet sitagliptin phosphate 100 mg 100 mg PO DAILY dm 05/30/25 05/30/25 History tablet (Januvia) topiramate 25 mg tablet 25 mg PO BID 05/30/25 Unknown History trazodone 150 mg tablet 150 mg PO QHS mood 05/30/25 05/29/25 History Allergy/AdvReac Type Severity Reaction Status Date / Time liraglutide (From Victoza) Allergy PT UNSURE Verified 05/30/25 16:18 OF REACTION empagliflozin (From AdvReac Other Verified 05/30/25 16:18 Jardiance) Surgical History History of cardiac catheterization Hx of hysterectomy Hx of tonsillectomy Hx of appendectomy Social History housing: house Smoking Status: Never smoker ROS Constitutional Constitutional: Reports fatigue and other Details: Severe jaundice noted ; Denies chills or fever(s) Cardiovascular Cardiovascular: Denies chest pain Respiratory/Chest Respiratory/Chest: Denies shortness of breath at rest Gastrointestinal Gastrointestinal: Denies abdominal pain, constipation, diarrhea, nausea or vomiting Musculoskeletal Musculoskeletal: Denies arthralgias or myalgias Neurologic Neurologic: Denies dizziness, focal weakness or headache(s) Vital Signs Vital Signs Vital Signs: 05/30/25 16:18 05/30/25 16:26 05/30/25 17:18 Temperature 98.5 F Temperature Source Oral Pulse Rate 93 71 Respiratory Rate 16 19 H Respiratory Effort Normal Non-Labored Blood Pressure 135/75 H 113/55 L Blood Pressure Mean 95 74 Pulse Ox 96 100 Oxygen Delivery Method Room Air 05/30/25 18:09 05/30/25 19:00 Temperature Temperature Source Pulse Rate 72 77 Respiratory Rate 18 14 Respiratory Effort Blood Pressure 133/59 H 96/49 L Blood Pressure Mean 83 64 Pulse Ox 100 99 Oxygen Delivery Method Room Air Room Air Weight Weight: 95.254 kg Body Mass Index (BMI) 39.6 Physical Exam Const alert, oriented x3 and no apparent distress Constitutional Narrative: Pleasant elderly female, class III obesity, severe whole body jaundice noted, mild fatigue noted, otherwise sitting up comfortably in bedside chair, conversing normally, in no acute distress. General Appearance: cooperative and comfortable HEENT normocephalic, head/scalp atraumatic, hearing grossly normal bilaterally, nasal mucous membranes and turbinates normal and moist oral mucous membranes Eyes PERRL and EOMs intact bilaterally Eyes Narrative: Scleral icterus noted. Neck full ROM Chest inspection of chest normal Resp normal respiratory effort, normal air movement, no use of accessory muscles and clear to auscultation bilaterally Cardio regular rate, regular rhythm, no murmurs and peripheral pulses 2+ throughout GI GI Narrative: Mild tenderness to palpation in right upper quadrant noted. Abdomen otherwise soft and nondistended. Back/Spine normal ROM Extremity normal to inspection, full ROM and no pedal edema Psych mental status grossly normal Results Lab / Micro Data 05/30/25 16:45 05/30/25 16:45 Labs: Laboratory Results - last 24 hr 05/30/25 16:35: Lactic Acid 1.1 05/30/25 16:45: WBC 6.5, RBC 3.86 L, Hgb 10.9 L, Hct 32.0 L, MCV 82.9, MCH 28.2, MCHC 34.1, RDW Std Deviation 53.1 H, RDW Coeff of Tito 18.5 H, Plt Count 439, MPV 10.1, Immature Gran % (Auto) 0.800, Neut % (Auto) 55.8, Lymph % (Auto) 29.7, [place] % (Auto) 7.4, Eos % (Auto) 5.1 H, Baso % (Auto) 1.2 H, Absolute Neuts (auto) 3.6, Absolute Lymphs (auto) 1.93, Nucleated RBC % 0, Sodium 134, Potassium 3.8, Chloride 97 L, Carbon Dioxide 22.9, Anion Gap 14, BUN 22 H, Creatinine 1.40 H, Estim Creat Clear Calc 37.17 L, Est GFR (MDRD) Non-Af 39 L, BUN/Creatinine Ratio 15.7, Glucose 91, Calcium 9.3, Total Bilirubin 20.60 H*, AST 324 H, ALT 320 H, Alkaline Phosphatase 659 H, Total Protein 6.1, Albumin 3.3 L, Globulin 2.8, Albumin/Globulin Ratio 1.2, Lipase 98 H Imaging Radiology Impression Gallbladder Ultrasound 05/30/25 17:45 IMPRESSION: Status post cholecystectomy. There is extensive intrahepatic and extrahepatic biliary dilatation. Hepatomegaly and hepatic steatosis. 1.5 cm right hepatic hypoechoic structure. Possible pancreatic lesion measuring 0.9 x 0.9 x 0.6 cm. Reading Location: [facility] Abdomen/Pelvis CT 05/30/25 17:54 IMPRESSION: Interval new severe intrahepatic and extrahepatic biliary dilatation. There is periportal edema. MRCP may be warranted if there is concern for biliary ductal obstruction. Cholangitis is not excluded. Reading Location: [facility] Assessment & Plan Assessment/Plan (1) Jaundice: PLAN: Plan Patient is a 75-year-old female who presented to [facility] ED on 05/30/2025 with fatigue and jaundice. 1. New onset jaundice ? Admit under inpatient status to [facility]. GI consulted. Highest concern is for pancreatic head mass causing obstructive jaundice. LFTs on admit of T. bili 20, AST 324, ALT 320, alk phos 659. Direct bilirubin ordered. CT abdomen pelvis showed severe intrahepatic and extrahepatic ductal dilation, though no pancreatic head mass was called. However, gallbladder ultrasound showed concern for a small pancreatic head mass. Notably has history of cholecystectomy several years ago. N.p.o. at midnight with plan for ERCP tomorrow. Trend LFTs. Will treat empirically with IV Zosyn at this time as well. 2. Mild creatinine elevation ? Creatinine 1.40 on admit, baseline 1.1-1.2. Presume mild prerenal etiology, given 2 L of IV fluids on admit. Follow-up a.m. BMP and monitor urine output. Chronic medical conditions: ? Class III obesity: BMI 40 on admit. Complicates hospital course and care. ? Hypertension/hyperlipidemia: Borderline hypotensive to the 100s over 60s on admit. Will hold home diltiazem and olmesartan. Continue home fenofibrate. ? Type 2 diabetes mellitus: Blood glucose 91 on admit. Last A1c 6.7% back in 2021. Repeat A1c ordered. Will decrease home Lantus to 15 units at night and treat with sliding scale insulin with meals for now, adjust as needed. Hold home metformin and sitagliptin. ? GERD: Continue home PPI. ? Hypothyroidism: Continue home Synthroid. ? History of cholecystectomy DVT prophylaxis: Heparin subcu CODE STATUS: Full code, verified Expected disposition: Home, TBD Total clinical time spent by myself addressing the patient's medical issues, reviewing all the data, and collaborating with patient's care team: 77 minutes. Charges/Coding Visit Charges Inpatient E&M: 56830 Init Hosp L3
[2025-05-30 20:10] LABS: Color, Urine Yellow (Yellow); Glucose, Dipstick Normal (Normal); Ketone-Dipstick Negative (Negative); Leukocyte Esterase-Dipstick Negative /ul (Negative); Nitrite-Dipstick Negative (Negative); Occult Blood-Urine Negative /ul (Negative); Protein-Dipstick 30 mg/dl (Negative); Specific Gravity, Urine 1.005 (1.002-1.030); Urine Bilirubin Dipstick 3 mg/dL (Negative)
[2025-05-30 20:40] LABS: Squamous Epithelial Cells - UA 0-5 SEEN /hpf (5-10)
[2025-05-30 20:49] LABS: Red Blood Cells-Urine 0-5 SEEN /hpf (0-5)
[2025-05-30] MEDS: Magnesium Chloride 64 MG Delay Rel.Tablet 128 MG PO (21:51)
--- NOTE | 2025-05-30 23:20 | PCM.HOSP.N ---
Hospitalist Note HS fingerstick glucometer 84 and will be NPO at MN, nrsg concerned for hypoglycemia; order placed for D5NS at 125ml/hr.
[2025-05-30] MEDS: 0.9% Saline Lock 10 ML Syringe IV (23:32)
[2025-05-30] MEDS: Dextrose 5%/0.9% NaCl 1,000 ML 125 ML IV (23:32)
[2025-05-31] VITALS (17 sets, daily range): BP systolic 98–151; BP diastolic 57–85; PULSE 71–89; RESP 15–18; TEMP 36.3–36.8; O2SAT 92–98
[2025-05-31 02:27] LABS: Bilirubin, Direct 16.80 mg/dL (0.00-0.30)
[2025-05-31 03:35] LABS: Hematocrit 28.7 % (37-47); Hemoglobin 9.5 g/dL (12.0-15.0); Mean Corp Hgb Conc 33.1 g/dL (32-36); Mean Corpuscular Volume 83.4 fL (81-99); Mean Platelet Vol. 10.2 fl (6.2-12.0); Platelet Count 429 K/mm3 (150-450); RBC Distribution Width CV 18.9 % (11.6-14.6); RBC Distribution Width SD 55.3 fl (35.1-43.9); Red Blood Count 3.44 M/mm3 (4.2-5.4); White Blood Count 7.5 K/mm3 (4.4-11.0)
[2025-05-31 04:26] LABS: AST(SGOT) 192 U/L (<=31); Alanine Aminotransfer ALT/SGPT 256 U/L (<=34); Albumin, Serum 3.0 g/dL (3.4-4.8); Alkaline Phosphatase 559 U/L (35-104); Anion Gap 13 (5-15); BUN 18 mg/dL (4-19); BUN/Creat Ratio 16.2 RATIO (10-20); Calcium,Total 8.7 mg/dL (7.6-11.0); Carbon Dioxide 20.1 mmol/L (21.0-32.0); Chloride 103 mmol/L (98-108); Estimated Creatinine Clearance 47.26 ml/min (50-250); Globulin 2.8 g/dL (2.2-4.2); Glucose 117 mg/dL (70-99); Potassium 3.6 mmol/L (3.3-5.1)
--- NOTE | 2025-05-31 06:00 | EKG12_ITS ---
Test Reason : PRE-OP Blood Pressure : */* mmHG Vent. Rate : 73 BPM Atrial Rate : 73 BPM P-R Int : 172 ms QRS Dur : 90 ms QT Int : 418 ms P-R-T Axes : 71 48 23 degrees QTcB Int : 460 ms Normal sinus rhythm Normal ECG When compared with ECG of 02-May-2022 11:02, No significant change was found Confirmed by DEVEN CARLOS, ROCKY ([id number]), field map editor BRET MADDEN ([id number]) on 05/31/2025 1:03:02 PM Referred By: ISAAC Confirmed By: ROCKY CARVALHO MD
[2025-05-31] MEDS: Piperacil/Tazobactam 3.375 GM in 0.9% Normal Saline (50mL MB+) 50 ML IV ×3 (06:38→21:52)
[2025-05-31] MEDS: Budesonide Respules 0.5 MG/2 ML AMPUL.NEB. INHALATION ×2 (06:54→19:21)
[2025-05-31] MEDS: Albuterol 2.5 MG/3 ML VIAL.NEB. INHALATION ×3 (06:54→19:21)
--- NOTE | 2025-05-31 08:15 | PN.HOSP_ITS ---
Reason for Visit Chief Complaint: Fatigue and jaundice Objective Data Objective Data Vital Signs: Vital Signs Temp Pulse Resp BP Pulse Ox O2 Del Method 98.0 F 81 17 131/63 H 97 Room Air 05/31/25 07:52 05/31/25 07:52 05/31/25 07:52 05/31/25 07:52 05/31/25 07:52 05/31/25 07:52 Oxygen Delivery Method Room Air Weight: 212 lb 15.465 oz Body Mass Index (BMI) 40.2 Intake & Output: Intake and Output for Last 24 Hours 05/29/25 05/30/25 05/31/25 23:59 23:59 23:59 Intake Total 2049 Balance 2049 Lab / Micro Data 05/31/25 03:10 05/31/25 03:10 Labs: Laboratory Results - last 24 hr 05/30/25 16:35: Lactic Acid 1.1 05/30/25 16:45: WBC 6.5, RBC 3.86 L, Hgb 10.9 L, Hct 32.0 L, MCV 82.9, MCH 28.2, MCHC 34.1, RDW Std Deviation 53.1 H, RDW Coeff of Tito 18.5 H, Plt Count 439, MPV 10.1, Immature Gran % (Auto) 0.800, Neut % (Auto) 55.8, Lymph % (Auto) 29.7, [place] % (Auto) 7.4, Eos % (Auto) 5.1 H, Baso % (Auto) 1.2 H, Absolute Neuts (auto) 3.6, Absolute Lymphs (auto) 1.93, Nucleated RBC % 0, Sodium 134, Potassium 3.8, Chloride 97 L, Carbon Dioxide 22.9, Anion Gap 14, BUN 22 H, C reatinine 1.40 H, Estim Creat Clear Calc 37.17 L, Est GFR (MDRD) Non-Af 39 L, BUN/Creatinine Ratio 15.7, Glucose 91, Calcium 9.3, Total Bilirubin 20.60 H*, D irect Bilirubin 16.80 H, AST 324 H, ALT 320 H, Alkaline Phosphatase 659 H, Total Protein 6.1, Albumin 3.3 L, Globulin 2.8, Albumin/Globulin Ratio 1.2, Lipase 98 H 05/30/25 19:49: Urine Color Yellow, Urine Clarity Sl. Cloudy, Urine pH 6.0, Ur Specific [place] 1.005, Urine Protein 30 H, Urine Glucose (UA) Normal, Urine Ketones Negative, Urine Occult Blood Negative, Urine Nitrite Negative, Urine Bilirubin 3 H, Urine Urobilinogen 4 H, Ur Leukocyte Esterase Negative, Urine RBC 0-5 SEEN, Urine WBC 0-5 SEEN, Ur Squamous Epith Cells 0-5 SEEN, Amorphous Sediment 2+, Urine Bacteria 2+, Urine Mucus 0 SEEN 05/30/25 22:55: POC Glucose 84 05/31/25 03:10: WBC 7.5, RBC 3.44 L, Hgb 9.5 L, Hct 28.7 L, MCV 83.4, MCH 27.6, MCHC 33.1, RDW Std Deviation 55.3 H, RDW Coeff of Tito 18.9 H, Plt Count 429, MPV 10.2, Sodium 135, Potassium 3.6, Chloride 103, Carbon Dioxide 20.1 L, Anion Gap 13, BUN 18, Creatinine 1.11, Estim Creat Clear Calc 47.26 L, Est GFR (MDRD) Non- Af 52 L, BUN/Creatinine Ratio 16.2, Glucose 117 H, Hemoglobin A1c 6.1 H, Calcium 8.7, Total Bilirubin 10.90 H, AST 192 H, ALT 256 H, Alkaline Phosphatase 559 H, Total Protein 5.7 L, Albumin 3.0 L, Globulin 2.8, Albumin/Globulin Ratio 1.1, TSH 1.360 05/31/25 06:41: POC Glucose 148 H Radiography Diagnostic Testing: Radiology Impression Gallbladder Ultrasound 05/30/25 17:45 IMPRESSION: Status post cholecystectomy. There is extensive intrahepatic and extrahepatic biliary dilatation. Hepatomegaly and hepatic steatosis. 1.5 cm right hepatic hypoechoic structure. Possible pancreatic lesion measuring 0.9 x 0.9 x 0.6 cm. Reading Location: [facility] Abdomen/Pelvis CT 05/30/25 17:54 IMPRESSION: Interval new severe intrahepatic and extrahepatic biliary dilatation. There is periportal edema. MRCP may be warranted if there is concern for biliary ductal obstruction. Cholangitis is not excluded. Reading Location: [facility] Physical Exam Narrative Seen and examined Denies abdominal pain. She had chest pain on 05/21 very lower chest and as per ER note it was epigastric pain. There is concern of fibromyalgia and patient was discharged home thinking of noncardiac possible esophagitis on sucralfate. She denies right upper quadrant pain. Prior to that, 05/12 she was started on 3 medications, 1 antibiotic, steroid and topical. There is no listed steroid medication or antibiotic listed on her home medications. Admitted with fatigue and jaundice noticed 3 to 4 days ago by her Physical exam General: Alert, Oriented x3, Cooperative HEENT: Atraumatic, PERRLA, EOMI, Normocephalic. Oral: Deep icterus no Gingival or Mucosal Lesions/ Ulcerations Neck: Supple, No JVD, Negative Carotid Bruits Chest wall/Lungs: Air entry diminished in bilateral lung bases. No crepitation/rhonchi Cardiovascular: Regular rate and rhythm, Normal S1,S2, No M/G/R Abdomen: No acute tenderness in epigastrium/RUQ. Bowel Sounds sluggish. Not distended. : No dysuria. No renal angle tenderness. No suprapubic tenderness. Extremities: No edema, Capillary Refill Less than 3 Seconds Skin: Total [place] yellowing color. Musculoskeletal: No acute tenderness to Palpation of Joints or Extremities Neurological: Cranial nerves II-XII grossly intact, DTR 2+/4. No acute focal neurological deficit. Psych/Mental Status: Flat affect Assessment & Plan Assessment/Plan (1) Jaundice: PLAN: Plan Patient is a 75-year-old female who presented to [facility] ED on 05/30/2025 with fatigue and jaundice. Patient admitted with fatigue jaundice shortness of breath. Secondary with history of epigastric abdominal pain 9 days ago. Past medical history of thyroid disease insulin-dependent diabetes. Past surgical history of cholecystectomy and appendectomy. Denies alcohol use 1. Acute liver injury mainly obstructive jaundice/direct hyperbilirubinemia ? Admit under inpatient status to [facility]. GI consulted. Highest concern is for pancreatic head mass causing obstructive jaundice. Liver question on admit of T. bili 20, AST 324, ALT 320, alk phos 659. Direct bilirubin ordered. Notably has history of cholecystectomy several years ago. Discussed with Dr. Verdugo. CT images reviewed and agree with severe intrahepatic hepatic and extrahepatic biliary ductal dilation and periportal edema although no mention about pancreatic head lesion . Gallbladder ultrasound shows hepatomegaly, liver echogenic dilated intrahepatic biliary ducts. Right hepatic hypoechoic structure 1.5 x 1.5 x 1.5 cm. However, gallbladder ultrasound showed concern for a small pancreatic head mass, 0.9 x 0.9 x 0.6 cm. CBD 7 mm. Plan: ERCP. Tumor markers, AFP, CEA and CA 19-9 ordered. Repeat liver chemistry shows improvement total bilirubin 10.9, transaminases and alkaline phosphatase. TSH normal. Monitor liver chemistry. GGT ordered [place], possible prerenal ? Creatinine 1.40 on admit, baseline 1.1-1.2. Presume mild prerenal etiology, given 2 L of IV fluids on admit. Follow-up a.m. BMP and monitor urine output. Chronic medical conditions: ? Class III obesity: BMI 40 on admit. Complicates hospital course and care. ? Hypertension/hyperlipidemia: Borderline hypotensive to the 100s over 60s on admit. Will hold home diltiazem and olmesartan. Continue home fenofibrate. ? Type 2 diabetes mellitus: Blood glucose 91 on admit. Last A1c 6.7% back in 2021. 05/31 A1c 6.1%. Glucose 117 decrease home Lantus to 15 units at night and treat with sliding scale insulin with meals for now, adjust as needed. Hold home metformin and sitagliptin. ? GERD: Continue home PPI. ? Hypothyroidism: Continue home Synthroid. TSH normal. ? History of cholecystectomy DVT prophylaxis: Heparin subcu CODE STATUS: Full code, verified Total time of the visit including total time spent in counseling or coordination of care, (more than 50% of the total time, spent in obtaining medical information from nurses and other ancillary care providers ,explaining to the patient about labs, imaging, diagnosis and management of active complex medical conditions), discussion with gastroenterology, review of labs and imaging is 35 minutes. Charges/Coding Visit Charges Inpatient E&M: 98217 [facility] Hosp L3
[2025-05-31] MEDS: Dextrose 5%/0.9% NaCl 1,000 ML 125 ML IV (10:03)
--- NOTE | 2025-05-31 11:32 | CASEMGMT ---
JERI CARCAMO Assessment Face to Face with patient for initial transition planning/care coordination assessment. JERI CARCAMO introduced self and role at [facility], pt voices understanding. Pt is A&Ox4 and is resting comfortably in bed and is calm. Care providers, pharmacy, and demographics verified. Admitting dx: Severe Hyperbilirubinemia PCP: [facility] Specialists: Denies Preferred [facility]acy: [facility] Prescription Benefit: Yes LNOK: Jacoby Guillory (H) Living Arrangements: Pt lives with her in a single story home with a flat entrance ADLs/IADLs: Indep, 6-Click score is 24 Transportation: Self, DME: Functioning B[facility] with sufficient testing supplies including lancets, test strips, and EtOH swabs.? HHC/SNF: Denies hx of or needs Pt?s goal: Home Plan: Home with pt's once medically ready, anticipate no additional needs. GI consult. Pt states that she feels safe returning home with her at the time of DC and denies any further questions, concerns, or needs at this time. Report given to MS3 JERI CARCAMO. Rodney Wetzel RN, CM
--- NOTE | 2025-05-31 15:01 | NURSING ---
1445-pt off unit via bed for scheduled procedure
[2025-05-31] MEDS: 0.9% Normal Saline (1000mL) 1,000 ML 15 ML IV (15:05)
--- NOTE | 2025-05-31 15:33 | PRE.ANES_ITS ---
ASA Classification* ASA Classification ASA Classification: 3 and E Assessment & Plan Anesthesia* Anesthesia Assessment Anesthesia Assessment: Discussed sedation and/or anesthesia options, risks, benefits, and alternatives with patient/parents/legal guardian/POA. Questions invited. The patient/parents/legal guardian/POA seems to understand and agrees to proceed with anesthesia plan. Reviewed the physical assessment, medical history, allergy history and patient home medications list prior to surgery/procedure/anesthetic and documented any changes. Performed airway and anesthesia risk assessments. Anesthesia Type Anesthesia Type: General History Source History Obtained from:: Patient and Chart Anesthesia Focused Assessment* Temperature: 98.2 F Pulse Rate: 78 Blood Pressure: 151/65 Respiratory Rate: 15 Pulse Ox: 96 Oxygen Delivery Method: Room Air Airway Assessment Mouth opens: >3 cm Mallampati Score: I Teeth Condition: Missing (Patient has several missing teeth. Patient states no loose teeth.) Neck Range of motion (ROM): Limited ROM (Somewhat Decreased) Labs Anesthesia Preop lab: CBC WBC, (4.4-11.0) 7.5 K/mm3 Today, 03:10 RBC, (4.2-5.4) 3.44 M/mm3 L Today, 03:10 Hgb, (12.0-15.0) 9.5 g/dL L Today, 03:10 Hct, (37-47) 28.7 % L Today, 03:10 Plt Count, (150-450) 429 K/mm3 Today, 03:10 CHEMISTRY Potassium, (3.3-5.1) 3.6 mmol/L Today, 03:10 Sodium, (133-145) 135 mmol/L Today, 03:10 Phosphorus, (2.5-4.9) 4.1 mg/dL 04/08/22, 10:55 BUN, (4-19) 18 mg/dL Today, 03:10 Creatinine, (0.70-1.20) 1.11 mg/dL Today, 03:10 Glucose, (70-99) 117 mg/dL H Today, 03:10 POC Glucose, (74-106) 154 mg/dL H Today, 11:30 TSH, (0.300-4.200) 1.360 uIU/mL Today, 03:10 COAG PT, (11.7-14.9) 12.0 SECONDS 05/02/22, 11:11 Pre-Assessment Diagnosis/Proposed Procedure Planned Operative Procedure(s): Endoscopic retrograde cholangiopancreatography Anesthesia History Anesthesia History - manager scientific: Anesthesia History - manager scientific Hx Hospitalization No 04/30/22 14:30 Any Problems With Anesthesia No 05/30/25 21:58 Cholinesterase deficiency No 05/30/25 21:58 You/Your Family Experience No 05/30/25 21:58 fever (hyperthermia) with Relationship Recent Exposure to Contagious No 05/30/25 21:58 Disease Does patient have nerve No 05/30/25 21:58 stimulator Patient instructed to have device shut off --Does patient have Pacemaker or ICD? When Was Last Pacemaker Check QUESTION #4 FULL TEXT: You/Your Family Experience fever (hyperthermia) with Anesthesia Last Oral Intake Last Oral intake: Last Oral Intake NPO since 0000 Meds taken in AM with sips of water? Meds patient instructed to take am of surgery Any additional information?: Yes NPO since: 00:00 PONV PONV - manager scientific: PONV - manager scientific Female HX of Motion Sickness HX of N/V After Surgery Non-Smoker Duration of Surgery greater than 60 minutes Number of Risk Factors PONV Score Height & Weight Height & Weight: Anesthesia: Height & Weight Height 5 ft 1 in 05/30/25 21:11 Weight: 96.6 kg 05/30/25 21:11 Body Mass Index (BMI) 40.2 05/30/25 21:11 Respiratory Assessment Respiratory Assessment - manager scientific: Respiratory Tract Infection Hx - manager scientific Hx Respiratory Tract Infection No 05/30/25 21:58 STOP Sleep Apnea STOP Sleep Apnea - manager scientific: STOP Sleep Apnea - manager scientific Hx Hypertension Yes: CONTROLLED ON MED 05/30/25 21:13 Hx Sleep Apnea Yes: NOT USED-PER PT 05/30/25 21:13 CPAP No 05/30/25 21:13 BIPAP No 05/30/25 21:13 Do you snore loudly (louder than talking or can be heard Do you often feel tired/ fatigued/ sleepy during daytime? Has anyone observed you stop breathing during sleep? STOP Results Positive 05/30/25 21:13 QUESTION #5 FULL TEXT : Do you snore loudly (louder than talking or can be heard through closed doors)? 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 Specify any problems Hx of Preganancy in last 3 No 05/30/25 21:13 Months Nurse Filling Out Transfusion DREDICK 05/30/25 21:13 & Questions: Date: 05/30/25 05/30/25 21:13 Time: 21:14 05/30/25 21:13 Patient unable to answer at this time (ie. confused, unrespo /Reproduction History /Reproductive History - manager scientific: /Reproductive Hx- manager scientific Hx Now No 05/30/25 21:58 Gestational Age (in weeks): EDC: Hx Hx Para Hx Section SAB Active Medications Active Medications: Current Medications Generic Name Dose Route Start Last Admin Trade Name Freq PRN Reason Stop Dose Admin Albuterol Sulfate 2.5 mg 05/30/25 21:04 Albuterol 2.5 Mg/3 Ml Vial.Neb. INHALATION Q4H PRN PRN SOB &/OR WHEEZING Albuterol Sulfate 2.5 mg 05/31/25 00:00 05/31/25 12:50 Albuterol 2.5 Mg/3 Ml Vial.Neb. INHALATION 2.5 mg Q6HWA.RT CHRISTIAN Administration Budesonide 0.5 mg 05/31/25 06:00 05/31/25 06:54 Budesonide Respules 0.5 Mg/2 Ml Ampul.Neb. INHALATION 0.5 mg Q12H.RT CHRISTIAN Administration Cyanocobalamin 1,000 mcg 05/31/25 10:00 05/31/25 10:03 Cyanocobalamin 500 Mcg Tablet PO Not Given DAILY [facility]IAN Fenofibrate 48 mg 05/31/25 10:00 05/31/25 10:03 Fenofibrate 48 Mg Tablet PO Not Given DAILY CHRISTIAN Glucagon 1 mg 05/30/25 23:01 Glucagon 1 Mg/Ml Syringe IM X1 PRN Hypoglycemia Protocol Heparin Sodium (Porcine) 5,000 unit 05/31/25 14:00 05/31/25 13:15 Heparin Injection (Vial) 5,000 Unit/Ml Vial SC Not Given Q8 [facility]IAN Piperacillin Sod/Tazobactam 50 mls @ 12.5 mls/hr 05/31/25 06:00 05/31/25 1 3:15 Sod 3.375 gm/ Sodium Chloride IV 12.5 mls/hr Q8 CHRISTIAN Administration Sodium Chloride 250 mls @ 15 mls/hr 05/30/25 21:05 IV .[id number] PRN Saline Flush Sodium Chloride 250 mls @ 15 mls/hr 05/30/25 21:05 IV .[id number] PRN Additional IVPB Infusion Dextrose 250 mls @ 0 mls/hr 05/30/25 23:01 Dextrose 10%-Water IV .Q0M PRN HYPOGLYCEMIA Protocol As Directed Dextrose/Sodium Chloride 1,000 mls @ 125 mls/hr 05/30/25 23:20 05/31/25 10:03 Dextrose 5%/0.9% Nacl IV 125 mls/hr .Q8H CHRISTIAN Administration Sodium Chloride 1,000 mls @ 15 mls/hr 05/31/25 15:05 IV .Q48H [facility]RISTIAN Insulin Glargine 15 unit 05/31/25 22:00 Insulin Glargine-Yfgn 100 Unit/Ml Pen SC QHS [facility] Protocol Insulin Human Lispro 0 unit 05/31/25 07:00 05/31/25 11:35 Insulin Lispro 100 Unit/Ml Insuln.Pen SC 1 u ACHS CHRISTIAN Administration Protocol Levothyroxine Sodium 50 mcg 05/31/25 06:00 05/31/25 03:24 Levothyroxine 50 Mcg Tablet PO Not Given DAILY@0600 [facility]IAN Magnesium Chloride 128 mg 05/30/25 22:00 05/31/25 10:02 Magnesium Chloride 64 Mg Delay Rel.Tablet PO Not Given BID [facility]IAN Multivitamins 1 tablet 05/31/25 08:00 05/31/25 10:02 Multivitamins,Therapeutic Tablet PO Not Given DAILYCM [facility] Ondansetron HCl 4 mg 05/30/25 21:04 Ondansetron 4 Mg/2 Ml Vial IV Q8H PRN PRN NAUSEA/VOMITING Pantoprazole Sodium 40 mg 05/31/25 10:00 05/31/25 10:02 Pantoprazole Sodium 40 Mg Tablet PO Not Given DAILY [facility]RISTIAN Sodium Chloride 10 - 40 ml 05/30/25 21:05 05/30/25 23:32 0.9% Saline Lock 10 Ml Syringe IV 10 ml UD PRN Administration SALINE FLUSH Trazodone HCl 150 mg 05/30/25 22:00 05/30/25 21:51 Trazodone 50 Mg Tablet PO 150 mg QHS [facility]RISTIAN Administration PFSH Medical History Wears glasses Post-menopausal History of steroid therapy Thyroid disease Insulin dependent diabetes mellitus Diabetes Arthritis History of renal disease Anemia Restless legs Sleep apnea Shortness of breath on exertion Hoarseness History of stress test Hypertension History of irregular heartbeat Hx of endometriosis Home Medications ?Medication ?Instructions ?Recorded ?Last Taken ?Type albuterol sulfate 90 mcg/actuation 2 puff inhalation Q 6H PRN PRN Sob 03/27/19 Unknown History aerosol inhaler &/Or Wheezing fenofibrate nanocrystallized 145 145 mg PO DAILY hld 0 03/27/19 05/30/25 History mg tablet levothyroxine 50 mcg tablet 50 mcg PO DAILY thyroid 05/30/25 History fluticasone 250 mcg-salmeterol 50 1 inh inhalation BID sob 04/30/22 05/30/25 History mcg/dose blistr powdr for inhalation (Wixela Inhub) olmesartan 20 mg tablet 20 mg PO DAILY bp 04/30/22 0 05/30/25 History biotin 5 mg capsule 5 mg PO DAILY supplement 05/30/25 History cyanocobalamin (vitamin B-12) 1,000 mcg PO DAILY suppl ement 05/30/25 05/30/25 History 1,000 mcg tablet,extended release (Vitamin B-12 ER) diltiazem HCl 360 mg 360 mg PO DAILY heart 05/30/25 History capsule,extended release 24 hr insulin glargine 100 unit/mL 40 unit subcut QHS dm 05/29/25 History subcutaneous solution (Lantus U-100 Insulin) magnesium oxide 400 mg (241.3 mg 400 mg PO BID supplem ent 05/30/25 05/30/25 History magnesium) tablet metformin 500 mg tablet 1,000 mg PO BID dm 05/30/25 05/30/25 History multivitamin (Daily Multi-Vitamin 1 tab PO DAILY suppl ement 05/30/25 05/30/25 History tablet) omeprazole 40 mg capsule,delayed 40 mg PO DAILY gerd 0 05/30/25 05/30/25 History release ondansetron 4 mg disintegrating 4 mg PO Q8H PRN PRN na usea/vomiting 05/30/25 05/23/25 History tablet sitagliptin phosphate 100 mg 100 mg PO DAILY dm 05/30/25 History tablet (Januvia) topiramate 25 mg tablet 25 mg PO BID 05/30/25 Unknow n History trazodone 150 mg tablet 150 mg PO QHS mood 05/30/25 05/30/25 History Allergy/AdvReac Type Severity Reaction Status Date / Time liraglutide (From Victoza) Allergy PT UNSURE Verified 05/30/25 16:18 OF REACTION empagliflozin (From AdvReac Other Verified 05/30/25 16:18 Jardiance) Surgical History History of cardiac catheterization Hx of hysterectomy Hx of tonsillectomy Hx of appendectomy Social History housing: house Smoking Status: Never smoker Review of Systems (Anesthesia) ROS Narrative System reviewed and no additional complaints, except as documented.
--- NOTE | 2025-05-31 16:00 | RAD_ITS ---
PROCEDURE: ERCP BILIARY/PANCREAS 05/31/2025 REASON FOR EXAM: ERCP TECHNIQUE: Procedure Code: RADERCP Modality: DX Procedure: ERCP BILIARY/PANCREAS FINDINGS: Intraoperative images of an ERCP were performed. Filling defect within the common bile duct. See procedure report for full details. 14 images. 315.7 seconds. 102.76 mGy. RAD/ERCP Biliary/Pancreas IMPRESSION: As above. Reading Location: [id number]
--- NOTE | 2025-05-31 16:00 | FLU_PTH ---
PATIENT: LENI ZAMBRANO LOC: [facility]3 U#:[id number] AGE/SX: 75/F ROOM: [facility] RE05/30/[address]: Dr. Reggie Barrett MD : 1950 BED: 1 DIS: 06/01/2025 SPEC #: [id number] RECD: 05/31/25 17:44 STATUS: SOUVielka REQ #: [id number] LAYNE: 05/31/25 16:[address]: Farzad Verdugo DEPT: CYTOLOGY RECD BY: Dionte Richey ENTERED: 06/01/25 14:48 SP TYPE: Fluid OTHR DR: DO Dr. Reggie Betancourt MD Dr. William Lago, MD Heather Evans, INTEGRATION CONSULTANT-C Meliza Hobson, INTEGRATION CONSULTANT-C [facility] Tissues: A - Biliary tract, NOS Procedures: Special Stain Group II Surgery Specimen Level IV Cytospin Fluid HEADER OPERATION: ERCP PRE-OP DIAGNOSIS: Jaundice TISSUE SUBMITTED: A- Biliary stricture brushings and brush tip DIAGNOSIS CYTOLOGY A. Biliary stricture and brush tip, ERCP (cytospin, smear x3, cellblock): * No malignant cells identified. CYTOLOGY STUDY Slides are reviewed. CYTOLOGY GROSS A. Received is <5 ml of cloudy-yellow fluid and 3 smears labeled with the patient's name and and designated per the requisition as Biliary stricture brushings and brush tip. Submitted for cytology and cell block preparation. 06/01/2025 CPT: 50908,85103,86695
--- NOTE | 2025-05-31 16:18 | EX.PCM.CON.G ---
HPI Consult Data Date of Consult: 05/31/25 HPI Narrative Reason for Consultation: Jaundice HPI Narrative: LENI ZAMBRANO, is a75 F who presented to [facility] [place] ED on 05/30/2025 with fatigue and jaundice. She was recently seen here in the ED on 05/21 for epigastric abdominal pain that she states began in early to mid May. She was treated with a GI cocktail and IV Pepcid during that visit with improvement in her pain and ED physician suspected that her pain was due to acid reflux. Patient notes improvement in her epigastric pain since then but she has now began to have dark-colored urine and pale-colored stools for the past several days. Her noted that she started to become jaundiced on Friday as well. In the ED her CMP was notable for total bilirubin 20.60, AST 324, ALT 320, alk phos 659. Notably LFTs were not taken during the recent ED visit on 05/21, and no LFTs are otherwise available since 2021. CT abdomen pelvis showed new severe intrahepatic and extrahepatic biliary dilation with periportal edema, with prior cholecystectomy noted. Gallbladder ultrasound showed similar findings with concern for possible pancreatic lesion measuring 0.9 x 0.9 x 0.6 cm. [facility] Medical History Wears glasses Post-menopausal History of steroid therapy Thyroid disease Insulin dependent diabetes mellitus Diabetes Arthritis History of renal disease Anemia Restless legs Sleep apnea Shortness of breath on exertion Hoarseness History of stress test Hypertension History of irregular heartbeat Hx of endometriosis Home Medications ?Medication ?Instructions ?Recorded ?Last Taken ?Type albuterol sulfate 90 mcg/actuation 2 puff inhalation Q6H PRN PRN Sob 03/27/19 Unknown History aerosol inhaler &/Or Wheezing fenofibrate nanocrystallized 145 145 mg PO DAILY hld 03/27/19 05/30/25 History mg tablet levothyroxine 50 mcg tablet 50 mcg PO DAILY thyroid 03/27/19 05/30/25 History fluticasone 250 mcg-salmeterol 50 1 inh inhalation BID sob 04/30/22 05/30/25 History mcg/dose blistr powdr for inhalation (Wixela Inhub) olmesartan 20 mg tablet 20 mg PO DAILY bp 04/30/22 05/30/25 History biotin 5 mg capsule 5 mg PO DAILY supplement 05/30/25 05/30/25 History cyanocobalamin (vitamin B-12) 1,000 mcg PO DAILY supplement 05/30/25 05/30/25 History 1,000 mcg tablet,extended release (Vitamin B-12 ER) diltiazem HCl 360 mg 360 mg PO DAILY heart 05/30/25 05/30/25 History capsule,extended release 24 hr insulin glargine 100 unit/mL 40 unit subcut QHS dm 05/30/25 05/29/25 History subcutaneous solution (Lantus U-100 Insulin) magnesium oxide 400 mg (241.3 mg 400 mg PO BID supplement 05/30/25 05/30/25 History magnesium) tablet metformin 500 mg tablet 1,000 mg PO BID dm 05/30/25 05/30/25 History multivitamin (Daily Multi-Vitamin 1 tab PO DAILY supplement 05/30/25 05/30/25 History tablet) omeprazole 40 mg capsule,delayed 40 mg PO DAILY gerd 05/30/25 05/30/25 History release ondansetron 4 mg disintegrating 4 mg PO Q8H PRN PRN nausea/vomiting 05/30/25 05/23/25 History tablet sitagliptin phosphate 100 mg 100 mg PO DAILY dm 05/30/25 05/30/25 History tablet (Januvia) topiramate 25 mg tablet 25 mg PO BID 05/30/25 Unknown History trazodone 150 mg tablet 150 mg PO QHS mood 05/30/25 05/30/25 History Allergy/AdvReac Type Severity Reaction Status Date / Time liraglutide (From Victoza) Allergy PT UNSURE Verified 05/30/25 16:18 OF REACTION empagliflozin (From AdvReac Other Verified 05/30/25 16:18 Jardiance) Surgical History History of cardiac catheterization Hx of hysterectomy Hx of tonsillectomy Hx of appendectomy Social History housing: house Smoking Status: Never smoker ROS Constitutional Constitutional: Denies fatigue, fever(s), poor appetite, weight gain or weight loss Gastrointestinal Gastrointestinal: Denies belching, bloating, change in bowel habits, change in stool character, chewing difficulty, coffee ground emesis, constipation, cramping, diarrhea, dyspepsia, dysphagia, early satiety, excessive flatus, fecal incontinence, heartburn, hematemesis, hematochezia, hemorrhoids, loose stools, melena, nausea, odynophagia, rectal bleeding, tenesmus, vomiting or weight changes Physical Exam Const alert, oriented x3, no apparent distress and healthy appearing General Appearance: cooperative GI normal to inspection, nondistended, normoactive bowel sounds, soft to palpation, non-tender and non-distended Percussion: normal to percussion Rectal Exam: deferred Lab / Micro Data 05/31/25 03:10 05/31/25 03:10 Labs: Laboratory Results - last 24 hr 05/30/25 16:35: Lactic Acid 1.1 05/30/25 16:45: WBC 6.5, RBC 3.86 L, Hgb 10.9 L, Hct 32.0 L, MCV 82.9, MCH 28.2, MCHC 34.1, RDW Std Deviation 53.1 H, RDW Coeff of Tito 18.5 H, Plt Count 439, MPV 10.1, Immature Gran % (Auto) 0.800, Neut % (Auto) 55.8, Lymph % (Auto) 29.7, Tate % (Auto) 7.4, Eos % (Auto) 5.1 H, Baso % (Auto) 1.2 H, Absolute Neuts (auto) 3.6, Absolute Lymphs (auto) 1.93, Nucleated RBC % 0, Sodium 134, Potassium 3.8, Chloride 97 L, Carbon Dioxide 22.9, Anion Gap 14, BUN 22 H, Creatinine 1.40 H, Estim Creat Clear Calc 37.17 L, Est GFR (MDRD) Non-Af 39 L, BUN/Creatinine Ratio 15.7, Glucose 91, Calcium 9.3, Total Bilirubin 20.60 H*, Direct Bilirubin 16.80 H, AST 324 H, ALT 320 H, Alkaline Phosphatase 659 H, Total Protein 6.1, Albumin 3.3 L, Globulin 2.8, Albumin/Globulin Ratio 1.2, Lipase 98 H 05/30/25 19:49: Urine Color Yellow, Urine Clarity Sl. Cloudy, Urine pH 6.0, Ur Specific Wilson 1.005, Urine Protein 30 H, Urine Glucose (UA) Normal, Urine Ketones Negative, Urine Occult Blood Negative, Urine Nitrite Negative, Urine Bilirubin 3 H, Urine Urobilinogen 4 H, Ur Leukocyte Esterase Negative, Urine RBC 0-5 SEEN, Urine WBC 0-5 SEEN, Ur Squamous Epith Cells 0-5 SEEN, Amorphous Sediment 2+, Urine Bacteria 2+, Urine Mucus 0 SEEN 05/30/25 22:55: POC Glucose 84 05/31/25 03:10: WBC 7.5, RBC 3.44 L, Hgb 9.5 L, Hct 28.7 L, MCV 83.4, MCH 27.6, MCHC 33.1, RDW Std Deviation 55.3 H, RDW Coeff of Tito 18.9 H, Plt Count 429, MPV 10.2, Sodium 135, Potassium 3.6, Chloride 103, Carbon Dioxide 20.1 L, Anion Gap 13, BUN 18, Creatinine 1.11, Estim Creat Clear Calc 47.26 L, Est GFR (MDRD) Non-Af 52 L, BUN/Creatinine Ratio 16.2, Glucose 117 H, Hemoglobin A1c 6.1 H, Calcium 8.7, Total Bilirubin 10.90 H, AST 192 H, ALT 256 H, Alkaline Phosphatase 559 H, Total Protein 5.7 L, Albumin 3.0 L, Globulin 2.8, Albumin/Globulin Ratio 1.1, TSH 1.360 05/31/25 06:41: POC Glucose 148 H 05/31/25 11:30: POC Glucose 154 H Imaging Radiology Impression Gallbladder Ultrasound 05/30/25 17:45 IMPRESSION: Status post cholecystectomy. There is extensive intrahepatic and extrahepatic biliary dilatation. Hepatomegaly and hepatic steatosis. 1.5 cm right hepatic hypoechoic structure. Possible pancreatic lesion measuring 0.9 x 0.9 x 0.6 cm. Reading Location: [facility] Abdomen/Pelvis CT 05/30/25 17:54 IMPRESSION: Interval new severe intrahepatic and extrahepatic biliary dilatation. There is periportal edema. MRCP may be warranted if there is concern for biliary ductal obstruction. Cholangitis is not excluded. Reading Location: [facility] Assessment & Plan Assessment/Plan (1) Jaundice: PLAN: Differential diagnosis for new onset jaundice in a 75-year-old would be cholangiocarcinoma, pancreatic cancer, choledocholithiasis, less likely viral hepatitis, ischemic colitis or drug-induced liver injury. She should undergo therapeutic ERCP. She was explained alternatives, risk and benefits include not withstanding bleeding, infection, sepsis, perforation, need for emergent surgery and . She will have an ASA of 3. Charges/Coding Visit Charges Inpatient E&M: 93138 Init Hosp L3
--- NOTE | 2025-05-31 17:33 | OP.PROVAT_ITS ---
05/31/2025 Chicho Brian Re : ERCP procedure for Chloe Cohenedward Brian This procedure was performed on Saturday, May 31, 2025. My impressions and recommendations are as follows: Impressions : - A single localized biliary stricture was found in the lower third of the main bile duct. The stricture was indeterminate. - The entire biliary tree was severely dilated, secondary to a stricture. - The patient has had a cholecystectomy. - An irregularity was found in the ventral pancreatic duct in the head of the pancreas. - Choledocholithiasis was found. Complete removal was accomplished by biliary sphincterotomy and balloon extraction. - A biliary sphincterotomy was performed. - The biliary tree was swept. - The lower third of the main bile duct was successfully dilated. - Cells for cytology obtained in the lower third of the main duct. Recommendations : My findings are described in the full procedure note, which is enclosed. If I can be of further assistance, please feel free to contact me at . Sincerely, Farzad Verdugo DO 05/31/2025 5:33:04 PM This report has been signed electronically.
--- NOTE | 2025-05-31 17:33 | OP.ERCP_ITS ---
Patient Name: Chloe Guillory Procedure Date: 05/31/2025 3:24 PM Date of : 1950 Age: 75 Procedure: ERCP Indications: Abdominal pain of suspected biliary origin, Suspected ascending cholangitis, Jaundice, Elevated liver enzymes Providers: Farzad Verdugo DO Medicines: Monitored Anesthesia Care Patient Profile: This is a 75 year old female. Refer to note in patient chart for documentation of history and physical. Patient has symptoms of acute abdominal cramping, acute right upper quadrant abdominal pain and acute jaundice. This patient has no history of previous ERCP. She is status post laparoscopic cholecystectomy. Complications: No immediate complications. Procedure: Pre-Anesthesia Assessment: - Prior to the procedure, a History and Physical was performed, and patient medications and allergies were reviewed. The patient is competent. The risks and benefits of the procedure and the sedation options and risks were discussed with the patient. All questions were answered and informed consent was obtained. Patient identification and proposed procedure were verified in the pre-procedure area. Mental Status Examination: alert and oriented. Airway Examination: normal oropharyngeal airway and neck mobility. Respiratory Examination: clear to auscultation. CV Examination: normal. Prophylactic Antibiotics: The patient does not require prophylactic antibiotics. Prior Anticoagulants: The patient has taken no anticoagulant or antiplatelet agents. ASA Grade Assessment: III - A patient with severe systemic disease. After reviewing the risks and benefits, the patient was deemed in satisfactory condition to undergo the procedure. The anesthesia plan was to use monitored anesthesia care (MAC). Immediately prior to administration of medications, the patient was re-assessed for adequacy to receive sedatives. The heart rate, respiratory rate, oxygen saturations, blood pressure, adequacy of pulmonary ventilation, and response to care were monitored throughout the procedure. The physical status of the patient was re-assessed after the procedure. After obtaining informed consent, the scope was passed under direct vision. Throughout the procedure, the patient's blood pressure, pulse, and oxygen saturations were monitored continuously. The Duodenoscope was introduced through the mouth, and advanced to the duodenum and used to inject contrast into the bile duct and ventral pancreatic duct. The ERCP was accomplished without difficulty. The patient tolerated the procedure well. Scope In: 4:39:05 PM Scope Out: 5:21:37 PM Total Procedure Duration Time 0 hours 42 minutes 32 seconds Findings: The foreign languages department chair film was normal. The esophagus was successfully intubated under direct vision. The scope was advanced to a normal major papilla in the descending duodenum without detailed examination of the pharynx, larynx and associated structures, and upper GI tract. The upper GI tract was grossly normal. The ventral pancreatic duct was deeply cannulated with the short-nosed traction sphincterotome. Contrast was injected. I personally interpreted the bile duct and pancreatic duct images. There was brisk flow of contrast through the ducts. Image quality was adequate. Contrast extended to the entire biliary tree. Contrast extended to the pancreatic duct. Opacification of the ventral pancreatic duct in the head of the pancreas was successful. The maximum diameter of the ducts was 2 mm. Localized irregularity of the pancreatic duct was seen in the ventral pancreatic duct in the head of the pancreas. A long 0.025 inch Jagwire was passed into the ventral pancreatic duct. The bile duct was deeply cannulated with the short-nosed traction sphincterotome. Contrast was injected. Opacification of the main bile duct, common bile duct, cystic duct, common hepatic duct, left and right hepatic ducts and all intrahepatic branches and entire biliary tree was successful. The maximum diameter of the ducts was 18 mm. The lower third of the main bile duct contained a single localized stenosis 6 mm in length. The entire opacified area and entire biliary tree were severely dilated, secondary to a stricture. The largest diameter was 20 mm. A cholecystectomy had been performed. A long 0.025 inch Jagwire was passed into the biliary tree. A 5 mm biliary sphincterotomy was made with a braided traction (standard) sphincterotome using ERBE electrocautery. The sphincterotomy oozed blood. The biliary tree was swept with an 18 mm balloon starting at the upper third of the main bile duct, middle third of the main bile duct, lower third of the main duct, bifurcation, left intrahepatic duct(s) and left main hepatic duct. Sludge was swept from the duct. All stones were removed. Dilation of the lower third of the main bile duct with a 6-7-8 mm balloon (to a maximum balloon size of 8 mm) dilator was successful. Cells for cytology were obtained by brushing in the lower third of the main bile duct. Impression: - A single localized biliary stricture was found in the lower third of the main bile duct. The stricture was indeterminate. - The entire biliary tree was severely dilated, secondary to a stricture. - The patient has had a cholecystectomy. - An irregularity was found in the ventral pancreatic duct in the head of the pancreas. - Choledocholithiasis was found. Complete removal was accomplished by biliary sphincterotomy and balloon extraction. - A biliary sphincterotomy was performed. - The biliary tree was swept. - The lower third of the main bile duct was successfully dilated. - Cells for cytology obtained in the lower third of the main duct. Procedure Code(s): --- Professional --- 96670, 59, Endoscopic retrograde cholangiopancreatography (ERCP); with trans-endoscopic balloon dilation of biliary/pancreatic duct(s) or of ampulla (sphincteroplasty), including sphincterotomy, when performed, each duct 41186, 51, Endoscopic retrograde cholangiopancreatography (ERCP); with removal of calculi/debris from biliary/pancreatic duct(s) 97100, 26, Combined endoscopic catheterization of the biliary and pancreatic ductal systems, radiological supervision and interpretation CPT copyright 2021 [employer]. All rights reserved. The codes documented in this report are preliminary and upon digital circuit designer review may be revised to meet current compliance requirements. Farzad Verdugo DO 05/31/2025 5:33:04 PM This report has been signed electronically. Number of Addenda: 0 Note Initiated On: 05/31/2025 3:24 PM
--- NOTE | 2025-05-31 17:36 | PCM.POST.ANE ---
Anesthesia: Postop Eval I Current Vital Signs Temperature: 97.4 F Pulse Rate: 83 Blood Pressure: 109/77 Respiratory Rate: 18 Pulse Ox: 93 Oxygen Delivery Method: Room Air Assessment Airway patent: Yes Spontaneous unlabored respirations: Yes Mental status: Awake and Calm nausea: Yes Vomiting: No Anesthesia Complication: No Fluid Hydration Crystalloid volume administer (ml): 500 Total IV fluid infused: 500 Progress Note Anesthesia document: Postop Eval 1 completed: Yes
[2025-05-31 18:14] LABS: Bilirubin, Direct 8.30 mg/dL (0.00-0.30)
--- NOTE | 2025-05-31 18:30 | PCM.POSTANE2 ---
Anesthesia Postop Eval I Sum Postop Eval Completion status Anesthesia document: Postop Eval 1 completed: Yes Anesthesia Postop Eval I Summary Anesthesia Postop Eval I Summary: Anesthesia Postop Eval I: Assessment Summary Airway patent Yes 05/31/25 18:30 Spontaneous unlabored Yes 05/31/25 18:30 respirations Mental status Awake,Calm 05/31/25 18:30 nausea Yes 05/31/25 18:30 Vomiting No 05/31/25 18:30 Anesthesia Postop Eval I: Fluid Summary Crystalloid volume administer 500 05/31/25 18:30 (ml) Colloids volume administered ( ml) Blood Product volume administered (ml) Total IV fluid infused 500 05/31/25 18:30 Anesthesia Postop Eval I: Summary Notes Anesthesia Complication No 05/31/25 18:30 Anesthesia Complication Comment: Post-operative progress note Anesthesia: Postop Eval II Evaluation Mental status: Awake and Calm Pain Level: 0 nausea: No Vomiting: No Complications Anesthesia Complication: No
[2025-05-31] MEDS: Insulin Glargine-YFGN 100 UNIT/ML Pen 15 UNIT SC (21:46)
[2025-05-31] MEDS: Magnesium Chloride 64 MG Delay Rel.Tablet 128 MG PO (21:51)
[2025-05-31] MEDS: 0.9% Saline Lock 10 ML Syringe IV (21:52)
[2025-05-31] MEDS: Heparin Injection (Vial) 5,000 UNIT/ML VIAL 5000 UNIT SC (22:01)
[2025-06-01 05:06] VITALS: BP 140/69; PULSE 79; RESP 16; TEMP 36.6; O2SAT 95
[2025-06-01] MEDS: Piperacil/Tazobactam 3.375 GM in 0.9% Normal Saline (50mL MB+) 50 ML IV ×2 (05:08→13:51)
[2025-06-01 06:08] LABS: Hematocrit 27.6 % (37-47); Hemoglobin 9.0 g/dL (12.0-15.0); Immature Granulocytes Count 0.090 X10^3/uL (0.0-0.0); Mean Corp Hgb Conc 32.6 g/dL (32-36); Mean Corpuscular Volume 86.8 fL (81-99); Mean Platelet Vol. 10.6 fl (6.2-12.0); NRBC Flagged by Analyzer 0 % (0-5); Platelet Count 473 K/mm3 (150-450); RBC Distribution Width CV 18.6 % (11.6-14.6); RBC Distribution Width SD 57.9 fl (35.1-43.9); Red Blood Count 3.18 M/mm3 (4.2-5.4); White Blood Count 8.1 K/mm3 (4.4-11.0)
[2025-06-01] MEDS: Heparin Injection (Vial) 5,000 UNIT/ML VIAL 5000 UNIT SC (06:57)
[2025-06-01 07:07] LABS: AST(SGOT) 89 U/L (<=31); Alanine Aminotransfer ALT/SGPT 195 U/L (<=34); Albumin, Serum 3.2 g/dL (3.4-4.8); Alkaline Phosphatase 477 U/L (35-104); Anion Gap 13 (5-15); BUN 14 mg/dL (4-19); BUN/Creat Ratio 16.6 RATIO (10-20); Bilirubin, Direct 4.63 mg/dL (0.00-0.30); Calcium,Total 8.5 mg/dL (7.6-11.0); Carbon Dioxide 19.2 mmol/L (21.0-32.0); Chloride 99 mmol/L (98-108); Estimated Creatinine Clearance 61.71 ml/min (50-250); Globulin 2.7 g/dL (2.2-4.2); Glucose 239 mg/dL (70-99); Potassium 4.4 mmol/L (3.3-5.1)
--- NOTE | 2025-06-01 07:28 | PCM.PN.HOSP ---
Reason for Visit Chief Complaint: Fatigue and jaundice Objective Data Objective Data Vital Signs: Vital Signs Temp Pulse Resp BP Pulse Ox O2 Del Method O2 Flow Rate 97.9 F 79 16 140/69 H 95 Room Air 2 06/01/25 05:06 06/01/25 05:06 06/01/25 05:06 06/01/25 05:06 06/01/25 05:06 06/01/25 05:06 05/31/25 23:25 Oxygen Flow Rate (L/min) 2 Oxygen Delivery Method Room Air Weight: 212 lb 15.465 oz Body Mass Index (BMI) 40.2 Intake & Output: Intake and Output for Last 24 Hours 05/30/25 05/31/25 06/01/25 23:59 23:59 23:59 Intake Total 2049 2187.5 / 2187.5 50 / 50 Balance 2049 2187.5 / 2187.5 50 Lab / Micro Data 06/01/25 05:12 06/01/25 05:12 Labs: Laboratory Results - last 24 hr 05/31/25 03:10: Direct Bilirubin 8.30 H 05/31/25 11:30: POC Glucose 154 H 05/31/25 19:23: POC Glucose 183 H 05/31/25 21:44: POC Glucose 289 H 06/01/25 05:12: WBC 8.1, RBC 3.18 L, Hgb 9.0 L, Hct 27.6 L, MCV 86.8, MCH 28.3, MCHC 32.6, RDW Std Deviation 57.9 H, RDW Coeff of Tito 18.6 H, Plt Count 473 H, MPV 10.6, Immature Gran % (Auto) 1.100 H, Neut % (Auto) 81.5 H, Lymph % (Auto) 14.7 L, [place] % (Auto) 2.2, Eos % (Auto) 0.1, Baso % (Auto) 0.4, Absolute Neuts (auto) 6.6, Absolute Lymphs (auto) 1.19, Nucleated RBC % 0, Sodium 132 L, Potassium 4.4, Chloride 99, Carbon Dioxide 19.2 L, Anion Gap 13, BUN 14, Creatinine 0.85, Estim Creat Clear Calc 61.71, Est GFR (MDRD) Non-Af 72, BUN/Creatinine Ratio 16.6, Glucose 239 H, Calcium 8.5, Total Bilirubin 5.92 H, Direct Bilirubin 4.63 H, AST 89 H, ALT 195 H, Alkaline Phosphatase 477 H, Total Protein 5.9, Albumin 3.2 L, Globulin 2.7 06/01/25 06:53: POC Glucose 268 H Radiography Diagnostic Testing: Radiology Impression Endo Retro Cholangiopancreatogram 05/31/25 16:00 IMPRESSION: As above. Reading Location: [id number] Physical Exam Narrative Seen and examined Denies abdominal pain. She had chest pain on 05/21 very lower chest and as per ER note it was epigastric pain. There is concern of fibromyalgia and patient was discharged home thinking of noncardiac possible esophagitis on sucralfate. She denies right upper quadrant pain. Prior to that, 05/12 she was started on 3 medications, 1 antibiotic, steroid and topical. There is no listed steroid medication or antibiotic listed on her home medications. Admitted with fatigue and jaundice noticed 3 to 4 days ago by her Physical exam General: Alert, Oriented x3, Cooperative HEENT: Atraumatic, PERRLA, EOMI, Normocephalic. Oral: Deep icterus no Gingival or Mucosal Lesions/ Ulcerations Neck: Supple, No JVD, Negative Carotid Bruits Chest wall/Lungs: Air entry diminished in bilateral lung bases. No crepitation/rhonchi Cardiovascular: Regular rate and rhythm, Normal S1,S2, No M/G/R Abdomen: No acute tenderness in epigastrium/RUQ. Bowel Sounds sluggish. Not distended. : No dysuria. No renal angle tenderness. No suprapubic tenderness. Extremities: No edema, Capillary Refill Less than 3 Seconds Skin: Total Lem[place] yellowing color. Musculoskeletal: No acute tenderness to Palpation of Joints or Extremities Neurological: Cranial nerves II-XII grossly intact, DTR 2+/4. No acute focal neurological deficit. Psych/Mental Status: Flat affect Assessment & Plan Assessment/Plan (1) Jaundice: PLAN: Plan Patient is a 75-year-old female who presented to [facility] ED on 05/30/2025 with fatigue and jaundice. Patient admitted with fatigue jaundice shortness of breath. Secondary with history of epigastric abdominal pain 9 days ago. Past medical history of thyroid disease insulin-dependent diabetes. Past surgical history of cholecystectomy and appendectomy. Denies alcohol use 1. Acute liver injury mainly obstructive jaundice/direct hyperbilirubinemia ? Admit under inpatient status to [facility]. GI consulted. Highest concern is for pancreatic head mass causing obstructive jaundice. Liver question on admit of T. bili 20, AST 324, ALT 320, alk phos 659. Direct bilirubin ordered. Notably has history of cholecystectomy several years ago. Discussed with Dr. Verdugo. CT images reviewed and agree with severe intrahepatic hepatic and extrahepatic biliary ductal dilation and periportal edema although no mention about pancreatic head lesion . Gallbladder ultrasound shows hepatomegaly, liver echogenic dilated intrahepatic biliary ducts. Right hepatic hypoechoic structure 1.5 x 1.5 x 1.5 cm. However, gallbladder ultrasound showed concern for a small pancreatic head mass, 0.9 x 0.9 x 0.6 cm. CBD 7 mm. Plan: ERCP. Tumor markers, AFP, CEA and CA 19-9 ordered. Repeat liver chemistry shows improvement total bilirubin 10.9, transaminases and alkaline phosphatase. TSH normal. Monitor liver chemistry. GGT ordered ERCP 05/31/2025 Impression: - A single localized biliary stricture was found in the lower third of the main bile duct. The stricture was indeterminate. - The entire biliary tree was severely dilated, secondary to a stricture. - The patient has had a cholecystectomy. - An irregularity was found in the ventral pancreatic duct in the head of the pancreas. - Choledocholithiasis was found. Complete removal was accomplished by biliary sphincterotomy and balloon extraction. - A biliary sphincterotomy was performed. - The biliary tree was swept. - The lower third of the main bile duct was successfully dilated. - Cells for cytology obtained in the lower third of the main duct. OTTONIEL, possible prerenal ? Creatinine 1.40 on admit, baseline 1.1-1.2. Presume mild prerenal etiology, given 2 L of IV fluids on admit. Follow-up a.m. BMP and monitor urine output. Chronic medical conditions: ? Class III obesity: BMI 40 on admit. Complicates hospital course and care. ? Hypertension/hyperlipidemia: Borderline hypotensive to the 100s over 60s on admit. Will hold home diltiazem and olmesartan. Continue home fenofibrate. ? Type 2 diabetes mellitus: Blood glucose 91 on admit. Last A1c 6.7% back in 2021. 05/31 A1c 6.1%. Glucose 117 decrease home Lantus to 15 units at night and treat with sliding scale insulin with meals for now, adjust as needed. Hold home metformin and sitagliptin. ? GERD: Continue home PPI. ? Hypothyroidism: Continue home Synthroid. TSH normal. ? History of cholecystectomy DVT prophylaxis: Heparin subcu CODE STATUS: Full code, verified Total time of the visit including total time spent in counseling or coordination of care, (more than 50% of the total time, spent in obtaining medical information from nurses and other ancillary care providers ,explaining to the patient about labs, imaging, diagnosis and management of active complex medical conditions), discussion with gastroenterology, review of labs and imaging is 35 minutes.
[2025-06-01 07:36] VITALS: BP 146/62; PULSE 66; RESP 16; TEMP 37.1; O2SAT 96
[2025-06-01] MEDS: Magnesium Chloride 64 MG Delay Rel.Tablet 128 MG PO (09:37)
[2025-06-01 09:47] VITALS: O2SAT 95
--- NOTE | 2025-06-01 11:52 | DCINST_ITS ---
Discharge Instructions DC O2, CPAP, BIPAP needs Home O2 Discharge instructions: No Dressing / Incision Discharge Activity: Return to Normal Activity Weight Bearing Status: Weight bearing as tolerated Dressing / Incision Call your doctor if you observe: Fever of 101 or Higher, Coldness, Increased Pain, Numbness or Tingling, Change in Color, Inability to urinate, Inability to have a bowel movement, Shortness of breath, Dizziness, Fainting spells, Swelling in the ankles, Chest pain, Prolonged hiccupping, Increased palpitations (irregular heartbeat) and Calf discomfort Follow Up Care When: IN 2 WEEKS Test Results: Test results from this visit will be discussed in further detail at your follow- up appointment, if applicable. Discharge Plan Admission Admit Date/Time: 05/30/25 20:04 Primary Reason for Your Visit: Obstructive jaundice, CBD stricture Attending Provider: Reggie Barrett Primary Care Provider: Chicho Brian Consulting Providers: Reggie Barrett; Farzad Verdugo; Yomaira Siegel; Meliza Hobson; Hannah Carrillo; Jose Umanzor Instructions Additional Instructions / Restrictions: Trazodone, Topamax, fenofibrate and Januvia are mildly toxic to liver/hepatotoxic. Augmentin should not be used for cholestatic jaundice therefore patient discharged on Levaquin Discharge Orders/Prescriptions Prescriptions: New levofloxacin 500 mg tablet 500 mg PO DAILY 5 Days Qty: 5 0RF Continued levothyroxine 50 MCG tablet 50 mcg PO DAILY albuterol sulfate 1 INHALER inhaler 2 puff inhalation Q6H PRN PRN (Reason: Sob &/Or Wheezing) fluticasone propion-salmeterol [Wixela Inhub] 250-50 mcg/dose blister with device 1 inh INHALATION BID olmesartan 20 mg tablet 20 mg PO DAILY cyanocobalamin (vitamin B-12) [Vitamin B-12] 1,000 mcg tablet extended release 1,000 mcg PO DAILY diltiazem HCl 360 mg capsule,extended release 24hr 360 mg PO DAILY magnesium oxide 400 mg (241.3 mg magnesium) tablet 400 mg PO BID ondansetron 4 mg tablet,disintegrating 4 mg PO Q8H PRN PRN (Reason: nausea/vomiting) omeprazole 40 mg capsule,delayed release(DR/EC) 40 mg PO DAILY multivitamin [Daily Multi-Vitamin] Tablet 1 tab PO DAILY Changed insulin glargine [Lantus U-100 Insulin] 100 unit/mL solution 20 unit subcut QHS 30 Days Qty: 6 0RF Rx Instructions: Hold if glucose less than 130 mg/dl Held fenofibrate nanocrystallized 145 MG tablet 145 mg PO DAILY Hold Instructions: Hold until acute liver injury improves metformin 500 mg tablet 1,000 mg PO BID Hold Instructions: Hold until acute liver injury resolved topiramate 25 mg tablet 25 mg PO BID Hold Instructions: Hold for 1 week trazodone 150 mg tablet 150 mg PO QHS Hold Instructions: Hold for 1 week and resume lower dose 50 mg daily. Januvia 100 mg tablet 100 mg PO DAILY Hold Instructions: Hold for 1 week Discontinued biotin 5 mg capsule 5 mg PO DAILY Referrals / Follow Up: Farzad Verdugo DO [Med Staff - Active Staff, Gastroenterology] - Within 2 Weeks Chicho Brian MD [Primary Care Provider, Medical] Disposition Disposition (needs filled in before D/C Order can be placed): Home, Self Care
--- NOTE | 2025-06-01 12:58 | PN_ITS ---
Progress Note Patient underwent ERCP yesterday. She was discovered to have severe stricturing of the ampulla and distal common bile duct which was opened up with sphincterotomy and balloon dilation. Brushings of the stricture were taken and sent for analysis. Physical Exam Const alert, oriented x3, no apparent distress and healthy appearing General Appearance: cooperative GI normal to inspection, nondistended, normoactive bowel sounds, soft to palpation, non-tender and non-distended Percussion: normal to percussion Rectal Exam: deferred Assessment & Plan Assessment/Plan (1) Jaundice: (2) Cholestatic hepatitis: PLAN: 75-year-old woman's presentation of new onset abdominal pain, severe jaundice, cholestatic hepatitis, and intra- and extrahepatic biliary dilation points to an extrahepatic (obstructive) cause of her cholestasis. 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 Possible etiologies for obstructive cholestasis in this context include: * Retained or recurrent common bile duct (CBD) stones:?Stones may have been overlooked during the initial surgery or formed afterwards. * Bile duct stricture:?A narrowing of the bile duct can occur due to postsurgical scarring, especially following laparoscopic procedures. * Bile leak with stricture formation:?Undetected bile leakage from the surgical site can lead to scar tissue and subsequent biliary stricture, months to years after the initial surgery. * Cystic duct remnant with retained stone:?A long cystic duct remnant can lead to stone formation, causing obstructive symptoms. * Sphincter of Oddi dysfunction:?Though typically a diagnosis of exclusion, fibrosis or spasm of the sphincter can cause intermittent obstruction. * Mirizzi syndrome (Types I-IV):?While the gallbladder has been removed, a retained stone in a long cystic duct remnant can cause extrinsic compression or erosion into the hepatic duct, leading to a biliary fistula. Type IV involves complete destruction of the CBD. * Tumor:?Malignancy such as a cholangiocarcinoma must be considered, particularly with intra- and extrahepatic dilation. Plan: Check CA 19-9 and alpha-fetoprotein. Await brushings. Depending on brushings patient may need directed cholangioscopy versus EUS. Her numbers continue to improve which is a very good sign. Visit Charges Inpatient E&M: 14139 Subs Hosp L3
[2025-06-01 13:45] VITALS: BP 121/69; PULSE 80; RESP 16; TEMP 36.7; O2SAT 96
--- NOTE | 2025-06-01 14:07 | DS.PCM_ITS ---
Providers Date of Admission: 05/30/25 Date of Discharge: 06/01/25 Primary Care Physician: Dr. Chicho Brian MD Consultations 05/30/25 21:04 Consult: Gastroenterology Routine Consulting Provider: Jose A Gastroenterology Reason for Consult: obstructive jaundice EMERGENT Consult: No MD Notified: Yes Date Notified: 05/31/25 Time Notified: 06:48 Method of Notification: Text Reason For Visit: SEVERE HYPERBILIRUBINMIA Diagnosis Discharge Diagnosis (1) Jaundice: Status: Acute Code(s): R17 - Unspecified jaundice (2) Cholestatic hepatitis: Status: Acute Code(s): K75.89 - Other specified inflammatory liver diseases Plan Patient is a 75-year-old female who presented to [facility] ED on 05/30/2025 with fatigue and jaundice. Patient admitted with fatigue jaundice shortness of breath. Secondary with history of epigastric abdominal pain 9 days ago. Past medical history of thyroid disease insulin-dependent diabetes. Past surgical history of cholecystectomy and appendectomy. Denies alcohol use 1. Acute liver injury mainly obstructive jaundice/direct hyperbilirubinemia ? Admit under inpatient status to [facility]. GI consulted. Highest concern is for pancreatic head mass causing obstructive jaundice. Liver question on admit of T. bili 20, AST 324, ALT 320, alk phos 659. Direct bilirubin ordered. Notably has history of cholecystectomy several years ago. Discussed with Dr. Verdugo. CT images reviewed and agree with severe intrahepatic hepatic and extrahepatic biliary ductal dilation and periportal edema although no mention about pancreatic head lesion . Gallbladder ultrasound shows hepatomegaly, liver echogenic dilated intrahepatic biliary ducts. Right hepatic hypoechoic structure 1.5 x 1.5 x 1.5 cm. However, gallbladder ultrasound showed concern for a small pancreatic head mass, 0.9 x 0.9 x 0.6 cm. CBD 7 mm. Plan: ERCP. Tumor markers, AFP, CEA and CA 19-9 ordered. Repeat liver chemistry shows improvement total bilirubin 10.9, transaminases and alkaline phosphatase. TSH normal. Monitor liver chemistry. GGT ordered ERCP 05/31/2025 Impression: - A single localized biliary stricture was found in the lower third of the main bile duct. The stricture was indeterminate. - The entire biliary tree was severely dilated, secondary to a stricture. - The patient has had a cholecystectomy. - An irregularity was found in the ventral pancreatic duct in the head of the pancreas. - Choledocholithiasis was found. Complete removal was accomplished by biliary sphincterotomy and balloon extraction. - A biliary sphincterotomy was performed. - The biliary tree was swept. - The lower third of the main bile duct was successfully dilated. - Cells for cytology obtained in the lower third of the main duct. 06/01: Discharge medication reconciliation done. Patient's home medications trazodone, fenofibrate, metformin, topiramate and Januvia are held. They are either likelihood score C, or D because of P450 enzyme metabolism in the liver. Patient discharged on levofloxacin and 5 more days by total of 7 days. Advised to follow-up in GI office with Dr. Verdugo to review the ERCP cell brushing cytology report OTTONIEL, possible prerenal ? Creatinine 1.40 on admit, baseline 1.1-1.2. Presume mild prerenal etiology, given 2 L of IV fluids on admit. Follow-up a.m. BMP and monitor urine output. 06/01: OTTONIEL resolved. BUN/creatinine 14/0.85. Chronic medical conditions: ? Class III obesity: BMI 40 on admit. Complicates hospital course and care. ? Hypertension/hyperlipidemia: Borderline hypotensive to the 100s over 60s on admit. Will hold home diltiazem and olmesartan. Continue home fenofibrate. ? Type 2 diabetes mellitus: Blood glucose 91 on admit. Last A1c 6.7% back in 2021. 05/31 A1c 6.1%. Glucose 117 decrease home Lantus to 15 units at night and treat with sliding scale insulin with meals for now, adjust as needed. Hold home metformin and sitagliptin. 06/01: Glucose 239. Lantus dose decreased to 20 units from 40 units from ? GERD: Continue home PPI. ? Hypothyroidism: Continue home Synthroid. TSH normal. ? History of cholecystectomy DVT prophylaxis: Heparin subcu CODE STATUS: Full code, verified Discharge medication reconciliation done. Discharge follow-up instructions completed. Discharge process discussed with the patient and all questions were answered to patient's satisfaction. Follow with PCP in 1 to 2 weeks Total time spent, exact 35 minutes on discharge meds reconciliation, examination, coordination of care with nurses and ancillary staff, review of imaging and blood test and discussion with the patient on follow-up instructions. Medications at Discharge Home Medications albuterol sulfate 90 mcg/actuation aerosol inhaler 2 puff inhalation Q6H PRN PRN Sob &/Or Wheezing 03/27/19 fenofibrate nanocrystallized 145 mg tablet 145 mg PO DAILY hld 03/27/19 Held on 06/01/25. Instructions: Hold until acute liver injury improves levothyroxine 50 mcg tablet 50 mcg PO DAILY thyroid 03/27/19 fluticasone 250 mcg-salmeterol 50 mcg/dose blistr powdr for inhalation (Wixela Inhub) 1 inh inhalation BID sob 04/30/22 olmesartan 20 mg tablet 20 mg PO DAILY bp 04/30/22 cyanocobalamin (vitamin B-12) 1,000 mcg tablet,extended release (Vitamin B-12 ER) 1,000 mcg PO DAILY supplement 05/30/25 diltiazem HCl 360 mg capsule,extended release 24 hr 360 mg PO DAILY heart 05/30/25 magnesium oxide 400 mg (241.3 mg magnesium) tablet 400 mg PO BID supplement 05/30/25 metformin 500 mg tablet 1,000 mg PO BID dm 05/30/25 Held on 06/01/25. Instructions: Hold until acute liver injury resolved multivitamin (Daily Multi-Vitamin tablet) 1 tab PO DAILY supplement 05/30/25 omeprazole 40 mg capsule,delayed release 40 mg PO DAILY gerd 05/30/25 ondansetron 4 mg disintegrating tablet 4 mg PO Q8H PRN PRN nausea/vomiting 05/30/25 sitagliptin phosphate 100 mg tablet (Januvia) 100 mg PO DAILY dm 05/30/25 Held on 06/01/25. Instructions: Hold for 1 week topiramate 25 mg tablet 25 mg PO BID 05/30/25 Held on 06/01/25. Instructions: Hold for 1 week trazodone 150 mg tablet 150 mg PO QHS mood 05/30/25 Held on 06/01/25. Instructions: Hold for 1 week and resume lower dose 50 mg daily. insulin glargine 100 unit/mL subcutaneous solution (Lantus U-100 Insulin) 20 unit (0.2 mL) subcut QHS dm 30 days #6 mL 06/01/25 levofloxacin 500 mg tablet 500 mg PO DAILY 5 days #5 tabs 06/01/25 Physical Exam Narrative Seen and examined Patient wants to go home. Total bilirubin has come down, total 5.92, direct 4.63. Denies abdominal pain. She had chest pain on 05/21 very lower chest and as per ER note it was epigastric pain. There is concern of fibromyalgia and patient was discharged home thinking of noncardiac possible esophagitis on sucralfate. She denies right upper quadrant pain. Prior to that, 05/12 she was started on 3 medications, 1 antibiotic, steroid and topical. There is no listed steroid medication or antibiotic listed on her home medications. Admitted with fatigue and jaundice noticed 3 to 4 days ago by her Physical exam General: Alert, Oriented x3, Cooperative HEENT: Atraumatic, PERRLA, EOMI, Normocephalic. Oral: Deep icterus no Gingival or Mucosal Lesions/ Ulcerations Neck: Supple, No JVD, Negative Carotid Bruits Chest wall/Lungs: Air entry diminished in bilateral lung bases. No crepitation/rhonchi Cardiovascular: Regular rate and rhythm, Normal S1,S2, No M/G/R Abdomen: No acute tenderness in epigastrium/RUQ. Bowel Sounds sluggish. Not distended. : No dysuria. No renal angle tenderness. No suprapubic tenderness. Extremities: No edema, Capillary Refill Less than 3 Seconds Skin: Total [place] yellowing color. Musculoskeletal: No acute tenderness to Palpation of Joints or Extremities Neurological: Cranial nerves II-XII grossly intact, DTR 2+/4. No acute focal neurological deficit. Psych/Mental Status: Flat affect Weight / BMI Weight Weight: 212 lb 15.465 oz Body Mass Index (BMI) 40.2 ABG / Lab / Microbiology Data 06/01/25 05:12 06/01/25 05:12 Laboratory: Laboratory Results - last 24 hr 05/31/25 03:10: Direct Bilirubin 8.30 H 05/31/25 19:23: POC Glucose 183 H 05/31/25 21:44: POC Glucose 289 H 06/01/25 05:12: WBC 8.1, RBC 3.18 L, Hgb 9.0 L, Hct 27.6 L, MCV 86.8, MCH 28.3, MCHC 32.6, RDW Std Deviation 57.9 H, RDW Coeff of Tito 18.6 H, Plt Count 473 H, MPV 10.6, Immature Gran % (Auto) 1.100 H, Neut % (Auto) 81.5 H, Lymph % (Auto) 14.7 L, [place] % (Auto) 2.2, Eos % (Auto) 0.1, Baso % (Auto) 0.4, Absolute Neuts (auto) 6.6, Absolute Lymphs (auto) 1.19, Nucleated RBC % 0, Sodium 132 L, Potassium 4.4, Chloride 99, Carbon Dioxide 19.2 L, Anion Gap 13, BUN 14, Creatinine 0.85, Estim Creat Clear Calc 61.71, Est GFR (MDRD) Non-Af 72, BUN/Creatinine Ratio 16.6, Glucose 239 H, Calcium 8.5, Total Bilirubin 5.92 H, D irect Bilirubin 4.63 H, AST 89 H, ALT 195 H, Alkaline Phosphatase 477 H, Total Protein 5.9, Albumin 3.2 L, Globulin 2.7 06/01/25 06:53: POC Glucose 268 H 06/01/25 11:05: POC Glucose 257 H Radiography Diagnostic Testing: Radiology Impression Endo Retro Cholangiopancreatogram 05/31/25 16:00 IMPRESSION: As above. Reading Location: [id number] D/C Instructions Weight Bearing Status: Weight bearing as tolerated Call your doctor if you observe: Fever of 101 or Higher, Coldness, Increased Pain, Numbness or Tingling, Change in Color, Inability to urinate, Inability to have a bowel movement, Shortness of breath, Dizziness, Fainting spells, Swelling in the ankles, Chest pain, Prolonged hiccupping, Increased palpitations (irregular heartbeat) and Calf discomfort DC O2, CPAP, BIPAP Needs Home O2 Discharge instructions: No When: IN 2 WEEKS Meaningful Use Info Meaningful Use Meaningful Use Diagnoses (Choose all that apply): None applicable Discharge Plan Admission Admit Date/Time: 05/30/25 20:04 Primary Reason for Your Visit: Obstructive jaundice, CBD stricture Attending Provider: Reggie Barrett Primary Care Provider: Chicho Brian Consulting Providers: Reggie Barrett; Friend,Farzad; Yomaira Siegel; Meliza Hobson; Hannah Carrillo; Jose Umanzor Instructions Additional Instructions / Restrictions: Trazodone, Topamax, fenofibrate and Januvia are mildly toxic to liver/hepatotoxic. Augmentin should not be used for cholestatic jaundice therefore patient discharged on Levaquin Discharge Orders/Prescriptions Prescriptions: New levofloxacin 500 mg tablet 500 mg PO DAILY 5 Days Qty: 5 0RF Continued levothyroxine 50 MCG tablet 50 mcg PO DAILY albuterol sulfate 1 INHALER inhaler 2 puff inhalation Q6H PRN PRN (Reason: Sob &/Or Wheezing) fluticasone propion-salmeterol [Wixela Inhub] 250-50 mcg/dose blister with device 1 inh INHALATION BID olmesartan 20 mg tablet 20 mg PO DAILY cyanocobalamin (vitamin B-12) [Vitamin B-12] 1,000 mcg tablet extended release 1,000 mcg PO DAILY diltiazem HCl 360 mg capsule,extended release 24hr 360 mg PO DAILY magnesium oxide 400 mg (241.3 mg magnesium) tablet 400 mg PO BID ondansetron 4 mg tablet,disintegrating 4 mg PO Q8H PRN PRN (Reason: nausea/vomiting) omeprazole 40 mg capsule,delayed release(DR/EC) 40 mg PO DAILY multivitamin [Daily Multi-Vitamin] Tablet 1 tab PO DAILY Changed insulin glargine [Lantus U-100 Insulin] 100 unit/mL solution 20 unit subcut QHS 30 Days Qty: 6 0RF Rx Instructions: Hold if glucose less than 130 mg/dl Held fenofibrate nanocrystallized 145 MG tablet 145 mg PO DAILY Hold Instructions: Hold until acute liver injury improves metformin 500 mg tablet 1,000 mg PO BID Hold Instructions: Hold until acute liver injury resolved topiramate 25 mg tablet 25 mg PO BID Hold Instructions: Hold for 1 week trazodone 150 mg tablet 150 mg PO QHS Hold Instructions: Hold for 1 week and resume lower dose 50 mg daily. Januvia 100 mg tablet 100 mg PO DAILY Hold Instructions: Hold for 1 week Discontinued biotin 5 mg capsule 5 mg PO DAILY Referrals / Follow Up: Farzad Verdugo DO [Med Staff - Active Staff, Gastroenterology] - Within 2 Weeks Chicho Brian MD [Primary Care Provider, Medical] Disposition Disposition (needs filled in before D/C Order can be placed): Home, Self Care Charges/Coding Visit Charges Inpatient E&M: 24204 Disch Hosp >30min
[2025-06-02 04:07] LABS: Carcinoembryonic Antigen 1.7 ng/mL (0.0-4.7); GGTP 873 IU/L (0-60)
== END 2025-06-01 14:17 | disposition home or self-care (01) | DRG 435 ==
LOC: ED 20:23 → MS3 20:46
PROVIDERS: Anesthesiology; Internal Medicine Gastroenterology; Admitting Provider Hospitalist; Emergency Provider Student in an Organized Health Care Education/Training Program; PCP Family Medicine; Visit Provider Internal Medicine
PROC: 0FC98ZZ Extirpation of Matter from Common Bile Duct, Via Natural or Artificial Opening Endoscopic (ICD-10-PCS; CPT 43260; principal; 2025-05-31 15:50)
DX: C22.1 Intrahepatic bile duct carcinoma (principal); K72.00 Acute and subacute hepatic failure without coma; K80.51 Calculus of bile duct without cholangitis or cholecystitis with obstruction; N17.9 Acute kidney failure, unspecified; Z68.41 Body mass index [BMI] 40.0-44.9, adult; K83.09 Other cholangitis; E11.649 Type 2 diabetes mellitus with hypoglycemia without coma; E03.9 Hypothyroidism, unspecified; K75.89 Other specified inflammatory liver diseases; I10 Essential (primary) hypertension; K21.9 Gastro-esophageal reflux disease without esophagitis; Z79.4 Long term (current) use of insulin; E78.5 Hyperlipidemia, unspecified; K86.9 Disease of pancreas, unspecified; E66.813 Obesity, class 3; Z79.84 Long term (current) use of oral hypoglycemic drugs; Z79.890 Hormone replacement therapy; Z79.899 Other long term (current) drug therapy; Z90.49 Acquired absence of other specified parts of digestive tract
CPT/HCPCS: 36415; 74177; 74330; 76000; 76705; 80048; 80053; 80076; 81001; 82105; 82248; 82378; 82962; 82977; 83036; 83605; 83690; 84443; 85025; 85027; 86301; 88108; 88305; 88313; 93005; 94640; 94668; 99283; Q9967; A4216; C1726; J2405

== ENCOUNTER → 2025-06-27 | Outpatient (CLI) | payer MEDICARE, SELFPAY ==
[2025-06-27 15:04] LABS: Hematocrit 30.4 % (37-47); Hemoglobin 9.6 g/dL (12.0-15.0); Immature Granulocytes Count 0.020 X10^3/uL (0.0-0.0); Mean Corp Hgb Conc 31.6 g/dL (32-36); Mean Corpuscular Volume 92.4 fL (81-99); Mean Platelet Vol. 9.4 fl (6.2-12.0); NRBC Flagged by Analyzer 0 % (0-5); Platelet Count 328 K/mm3 (150-450); RBC Distribution Width CV 15.9 % (11.6-14.6); RBC Distribution Width SD 54.3 fl (35.1-43.9); Red Blood Count 3.29 M/mm3 (4.2-5.4); White Blood Count 7.8 K/mm3 (4.4-11.0)
[2025-06-27 16:35] LABS: AST(SGOT) 75 U/L (<=31); Alanine Aminotransfer ALT/SGPT 72 U/L (<=34); Albumin, Serum 4.0 g/dL (3.4-4.8); Alkaline Phosphatase 173 U/L (35-104); Anion Gap 10 (5-15); BUN 16 mg/dL (4-19); BUN/Creat Ratio 14.5 RATIO (10-20); Bilirubin, Direct 0.76 mg/dL (0.00-0.30); Calcium,Total 9.5 mg/dL (7.6-11.0); Carbon Dioxide 26.6 mmol/L (21.0-32.0); Chloride 107 mmol/L (98-108); Ferritin 149 ng/mL (22-378); Globulin 2.6 g/dL (2.2-4.2); Glucose 104 mg/dL (70-99); Iron 42 ug/dL (50-170); Iron Binding Capacity,Total 353 ug/dL (250-450); Iron Binding Capacity,Unsat 311 ug/dL (228-428); Potassium 4.8 mmol/L (3.3-5.1)
== END | disposition home or self-care (01) ==
LOC: LAB 14:46
PROVIDERS: PCP Clinical Nurse Specialist Adult Health; Referring Provider Nurse Practitioner Acute Care; Visit Provider Nurse Practitioner Acute Care
DX: D64.9 Anemia, unspecified (principal); R74.01 Elevation of levels of liver transaminase levels
CPT/HCPCS: 36415; 80048; 80076; 82728; 83540; 83550; 85025

== ENCOUNTER → 2025-07-15 | Outpatient (CLI) | payer MEDICARE, SELFPAY ==
--- NOTE | 2025-07-15 13:28 | MRI_ITS ---
PROCEDURE: MRI ABD WITH AND W/O CONTRAST 07/15/2025 REASON FOR EXAM: ABNL CT AND ELEVATED CA 19-9 Previous ERCP showing common bile duct stricture. TECHNIQUE: Procedure Code: [id number] Modality: MR Procedure: MRI ABD WITH AND W/O CONTRAST Multiplanar and multisequence images were obtained. CONTRAST: VOLUME: mL FINDINGS: Liver: Liver span is 18 cm indicating hepatomegaly significant signal abnormality seen in the liver parenchyma. Along the lower margin of the of the liver there is a hypointense T1 vibe 14 mm lesion. This is light bulb bright on DWI also shows contrast enhancement this is adjacent to the capsule of the liver and whether or not is within liver parenchymal or outside is uncertain. Biliary: No intrahepatic or extrahepatic biliary distention. The distention that was present on the prior CT exam has resolved. Pancreas: Pancreatic duct is unremarkable in caliber. No pancreatic mass appreciated. MRCP images of the intra and extrahepatic biliary tree and pancreas/pancreatic duct are normal. Spleen: Spleen is normal size and appearance. Adrenals: Normal. Kidneys: Tiny bilateral simple renal cysts requiring no follow-up. Peritoneum / Retroperitoneum: Unremarkable. Lymph Nodes: No lymphadenopathy appreciated. Major Vessels: Aorta, arterial branches and IVC are unremarkable. Bones: Bulging discs and endplate spondylosis. MRI/MRI Abd WITH and W/O Contrast IMPRESSION: Ill-defined bulkiness seen near the ampulla of Vater/duodenal bulb/ head of pa ncreas and liver at the jayne hepatis. Possibly arising from the duodenum. Possible artifact from decreased resolution of MR a nd lack of oral contrast as well as decreased sensitivity compared to thin slice CT. The details of the previous ERCP from May 31, 2025 indicate no obvious neoplasm based on cytology. Instead biliary ductal dilatation is diagnosed as stricture due to choledocholithiasis. Barium upper GI could be helpful to better visualize the duodenal bulb and 1st part of duodenum . This was a focus of concern with a previous CT abdomen study from 03/12/2022. No grossly evident neoplastic primary or metastatic lesions. Colonoscopy is f ar more sensitive for evaluation of colon cancer. An upper GI might be helpful to evaluate the stomach and duodenum with or witho ut repeat upper endoscopy. Probably less effective than upper GI, repeat CT abdomen with oral contrast may be helpful. MRCP 3 D images of the pancreatico-cholangio ducts appears negative on this nam dy. Indeterminant lesion at the inferior margin of the liver. Unclear whether this is subcapsular or outside of the liver. Reading Location: [facility]
== END | disposition home or self-care (01) ==
LOC: MRI 12:59
PROVIDERS: PCP Clinical Nurse Specialist Adult Health; Referring Provider Nurse Practitioner Acute Care; Visit Provider Nurse Practitioner Acute Care
DX: R74.01 Elevation of levels of liver transaminase levels (principal); D64.9 Anemia, unspecified; R79.89 Other specified abnormal findings of blood chemistry
CPT/HCPCS: 74183; A9575; A4216